=== PATIENT | male | born 1955 | race Caucasian/White ===

== ENCOUNTER 2020-01-08 14:15 | Inpatient (IN) | payer MEDICARE, BC, SELFPAY ==
[2020-01-08] VITALS (12 sets, daily range): BP systolic 99–136; BP diastolic 55–60; PULSE 70–99; RESP 16–18; TEMP 36.7–36.9; O2SAT 95–97; BMI 39.5
--- NOTE | 2020-01-08 14:51 | ED.DCSUM_ITS ---
- ER Visit Summary Date of Service: 01/08/20 Chief Complaint: [Redness and swelling to both legs] History of Present Illness: The patient is a 64 M [presents the emergency department with redness and swelling to both legs that started 5 or 6 weeks ago. Patient's been seeing his primary care physician who is been given water pills and was told him to keep his legs elevated. Patient states that whenever he elevates his legs he has a lot of pain and discomfort so he cannot do that. Patient denies any fevers. He had some sweats a few weeks ago. He denies any increase in his weight. Patient has history of CHF, coronary artery disease, diabetes, and hypertension. He denies feeling short of breath.] Physical Examination: [HEENT-PERRLA, EOMI. Cranial nerves II through XII grossly intact. TMs clear. Mucous membranes moist. No adenopathy. Cardiovascular-regular rate and rhythm without murmur or ectopy Lungs-clear to auscultation, chest wall stable without crepitus or subcu emphysema Abdomen-normoactive bowel sounds, soft, nontender, no rebound or rigidity, no peritoneal signs. Extremities-intact ?4, normal range of motion, normal pulses, atraumatic. Patient has bilateral lower extremity edema with seeping and oozing of fluid from the lower extremities from below the knees down to the feet. Patient has erythema and cellulitic changes noted. There is follow odor noted. Neurovascularly intact.] Test Results: [CBC with differential obtained showed a white count of 8.2, hemoglobin 10, hematocrit 30, platelets 288. Chemistry showed a sodium 126, potassium 3.6, chloride 93, CO2 24, glucose 134, BUN 95 and creatinine 2.11.] Emergency Department Course and Treatment: [IV line was established. Patient was started on Unasyn 3 g IV.] Treatment Plan: [Admit] Disposition: [Admit] Impression: [Cellulitis bilateral lower extremities Hyponatremia Renal insufficiency] This note was generated with [employer] dictation software. It may contain incorrect words, spelling, and punctuation that were not noted in review of the chart prior to signing ED Disposition - Plan for ED Patient: Referrals: Shay Chin MD [Primary Care Provider] -
[2020-01-08 15:34] LABS: Basophil# 0.03 X10^3/uL; Basophil% 0.4 % (0-1); Eosinophil# 0.13 X10^3/uL; Eosinophils% 1.6 % (0-5); Hematocrit 30.5 % (40-54); Hemoglobin 10.4 g/dL (13.0-16.5); Lymphocyte % 9.7 % (19-41); Mean Corp Hgb Conc 34.1 g/dL (32-36); Mean Corpuscular Hgb 29.5 pg (27.0-32.0); Mean Corpuscular Volume 86.6 fL (80-94); Mean Platelet Vol. 10.1 fl (6.2-12.0); Monocyte# 1.23 X10^3/uL; NRBC Flagged by Analyzer 0 % (0-5); Neutrophil # 5.99 X10^3/uL (2.7-7.7); Neutrophil % 72.9 % (47-70); Platelet Count 288 K/mm3 (150-450); RBC Distribution Width SD 40.7 fl (35.1-43.9); Red Blood Count 3.52 M/mm3 (4.6-6.2); White Blood Count 8.2 K/mm3 (4.4-11.0)
[2020-01-08 15:48] LABS: Anion Gap 9 (5-15); BUN 95 mg/dL (7-18); Calcium,Total 9.1 mg/dL (8.5-10.1); Chloride 93 mmol/L (98-107); Creatinine, Serum 2.11 mg/dL (0.70-1.30); EST Glomerular Filtration Rate 34 mL/min (>60); Est Glom Filt Rate - Afr Amer 41 mL/min (>60); Estimated Creatinine Clearance 35.56 ml/min; Glucose 134 mg/dL (74-106); Potassium 3.6 mmol/L (3.5-5.1); Sodium Level 126 mmol/L (136-145)
[2020-01-08 16:02] LABS: Lactic Acid 1.9 mmol/L (0.4-1.9)
--- NOTE | 2020-01-08 16:12 | PCM.HP.STD ---
Problem List (1) Diabetes mellitus Status: Chronic Qualifiers: Diabetes mellitus type: type 2 Chronic kidney disease stage: stage 3 (moderate) (2) HTN (hypertension) Status: Chronic (3) Bilateral cellulitis of lower leg Status: Acute (4) Stasis dermatitis of both legs Status: Acute (5) Systolic CHF, chronic Status: Chronic (6) Obesity (BMI 30-39.9) Status: Chronic (7) CKD (chronic kidney disease) stage 3, GFR 30-59 ml/min Status: Chronic History of Present Illness Date of Admission: 01/08/20 Chief Complaint: Bilateral lower extremity swelling The patient is a 64 year old M last medical history single for essential hypertension, diabetes mellitus type 2, chronic systolic heart failure with last known EF of 45% in 2017 who presents with bilateral lower extremity swelling. Patient reports 5-month history of progressive swelling involving both lower extremities. Has progressed to the extent where both legs are seeping. Patient on further questioning denied any fever no chills. Did admit to difficulty walking presented to the emergency department in view of the progressive nature of his symptoms. Exposure of both legs demonstrated extensive excoriations and swelling involving both lower extremities with malodorous discharge. An assessment of severe bilateral lower extremities stasis dermatitis with superimposed cellulitis made started on Unasyn admitted to a monitored bed for further management Past Medical History Past Medical History (Chronic Problems): Chronic Problems Systolic CHF, chronic (Chronic) Obesity (BMI 30-39.9) (Chronic) CKD (chronic kidney disease) stage 3, GFR 30-59 ml/min (Chronic) HTN (hypertension) (Chronic) Diabetes mellitus (Chronic) Allergies tramadol Allergy (Verified 01/08/20 14:18) Rash Home Medications: Ambulatory Orders Medication Instructions Recorded Amlodipine [Norvasc] 5 mg PO DAILY 02/16/17 Glimepiride [Amaryl] 4 mg PO DAILY 02/16/17 Metformin HCl [Metformin HCl ER] 1,500 mg PO DAILY 02/16/17 Valsartan/Hydrochlorothiazide 1 each PO DAILY 02/16/17 [Valsartan-Hctz 320-25 mg Tab] Oxycodone [Oxyir] 5 mg PO Q4H PRN PRN #20 tablet 02/20/17 Amiodarone HCl [Cordarone] 200 mg PO BID #60 tablet 02/21/17 Amoxicillin/Potassium Clav 1 each PO BID #20 tablet 02/21/17 [Augmentin 875-125 Tablet] Aspirin [Aspirin, Baby] 81 mg PO DAILY@0800 #30 tab.chew 02/21/17 Furosemide [Lasix] 40 mg PO DAILY #30 tablet 02/21/17 Lactobacillus Acidophilus 1 tablet PO DAILY #30 tablet 02/21/17 [Acidophilus] Metoprolol Tartrate [Lopressor 100 mg PO BID #60 tablet 02/21/17 (beta stephen)] Pantoprazole Sodium [Protonix] 40 mg PO DAILY #30 tablet 02/21/17 Potassium Chloride [K-Dur] 40 meq PO DAILYCM #30 tablet 02/21/17 Surgical History: cholecystectomy, - - Surgery for trauma to the left arm (fracture) with orthopedic plate inserted Psychiatric History: No pertinent psych hx Smoking Status: Former smoker - *Family History Maternal History Items: - - of pneumonia Paternal History Items: Heart Disease - [place] at age 71 Sibling History Items: Heart Disease - [place] at 55 Review of Systems Constitutional: Denies: Anorexia, Chills, Fever, Night Sweats, Weight Change HEENT: Denies: Head Aches, Sinus Congestion, Sinus Drainage Cardiovascular: Reports: Edema. Denies: Chest Pain, Orthopnea, Palpitations, Paroxysmal Noc. Dyspnea Respiratory: Denies: Cough, Shortness of breath at rest, Shortness of breath upon exertion, Sputum production Gastrointestinal: Denies: Abdominal Pain, Hematemesis, Hematochezia, Nausea, Melena, Vomiting Genitourinary: Denies: Dysuria, Frequency, Hematuria, Urgency Musculoskeletal: Denies: Joint Pain, Joint Tenderness Skin: Reports: Skin Changes, Wounds Neurological: Denies: Focal weakness, Numbness, Tingling Psychiatric: Denies: Homicidal Ideations, Suicidal Ideations Hematologic/ Lymphatic: Denies: Easy Bruising, Easy Bleeding VTE Information - Inpt Only VTE Present on Admission: No VTE Mechan Device Prophylaxis: None VTE Pharm Prophylaxis ordered?: Yes Patient Problems: Active and Suspected Problems Bilateral cellulitis of lower leg (Acute) Stasis dermatitis of both legs (Acute) Objective: GENERAL: cooperative HEENT: Atraumatic; EYES; Anicteric, Normal Conjunctiva NECK; supple, normal thyroid, RESPIRATORY: Diminished to auscultation CARDIOVASCULAR: Regular S1 S2, GI: soft, normoactive bowel sounds, : No Renal angle tenderness; EXTREMITIES: Bilateral lower extremity edema MUSCULOSKELETAL: no muscle waisting NEURO: Awake; no lateralizing signs. SKIN: Extensive stasis dermatitis involving both lower extremities with malodorous discharge PSYCH; Flat affect - Physical Exam Vitals/I&O's: Vital Signs Temp Pulse Resp BP Pulse Ox 98.4 F 97 18 120/56 L 95 01/08/20 16:01 01/08/20 16:01 01/08/20 16:01 01/08/20 16:01 01/08/20 16:01 Oxygen Delivery Method Room Air Weight: 125 kg Body Mass Index (BMI) 39.5 Finger Stick Blood Glucose 172 Laboratory Results 01/08/20 15:15: WBC 8.2, RBC 3.52 L, Hgb 10.4 L, Hct 30.5 L, MCV 86.6, MCH 29.5, MCHC 34.1, RDW Std Deviation 40.7, RDW Coeff of Tahmina 13.0, Plt Count 288, MPV 10.1, Immature Gran % (Auto) 0.400, Neut % (Auto) 72.9 H, Lymph % (Auto) 9.7 L, Saline % (Auto) 15.0 H, Eos % (Auto) 1.6, Baso % (Auto) 0.4, Absolute Neuts (auto) 6.0, Absolute Lymphs (auto) 0.80 L, Nucleated RBC % 0 01/08/20 15:15: Sodium 126 L, Potassium 3.6, Chloride 93 L, Carbon Dioxide 24.0, Anion Gap 9, BUN 95 H, Creatinine 2.11 H, Estim Creat Clear Calc 35.56, Est GFR (MDRD) Af Amer 41 L, Est GFR (MDRD) Non-Af 34 L, BUN/Creatinine Ratio 45.0 H, Glucose 134 H, Calcium 9.1 01/08/20 15:15: Lactic Acid 1.9 Assessment/Plan All Active Problems Bilateral cellulitis of lower leg (Acute) Stasis dermatitis of both legs (Acute) Acute systolic (congestive) heart failure (Acute) Acute cholecystitis (Acute) Right upper quadrant abdominal pain (Acute) Abnormal electrocardiogram (Acute) Abnormal echocardiogram (Acute) Patient is a 64-year-old gentleman with known history of chronic congestive heart failure with reduced ejection fraction who presented to the emergency department with progressive swelling involving both lower extremities with significant discharge from both legs 1. Severe stasis dermatitis with superimposed suspected bacterial infection ?Admitted to monitored bed with consultation placed to the wound care nurse. Patient was started on Unasyn after cultures have been obtained. 2. Chronic congestive heart failure reduced ejection fraction Last known EF in 2017 was 45%. Admitted to monitored bed placed on fluid restriction patient is on Lasix at home did continue with home dose in addition to daily weight, strict input and output fluid restriction. An order was placed for repeat echo to be performed on 01/09/2020. 3. Renal failure ?Do suspect some chronicity, patient had normal kidney function in January 2017. Potential nephrotoxic medications held ordered renal duplex and consultation placed to nephrology 4. Diabetes mellitus type II - Controlled patient's oral hypoglycemics held. Placed on long acting insulin, Accu-Cheks a.c. and at bedtime and covered with sliding scale insulin 5. Essential hypertension ?Did continue home meds except for potential nephrotoxic ones. Patient was also placed on PRN hydralazine 6. History of tachyarrhythmia with subsequent cardiomyopathy ?Patient is on beta-blockers and amiodarone continue 7. Morbid obesity with BMI of 39.5 ?Weight loss advised 8. DVT prophylaxis ??Lovenox dose adjusted for kidney function 9. Hyponatremia ?Do suspect hypervolemic hyponatremia (possibly from CHF) as well as patient being on HCTZ. Patient managed with Lasix with daily monitoring of electrolytes Inpatient E&M: 30559 In Hosp L3
--- NOTE | 2020-01-08 16:49 | ECHOCS_ITS ---
Reason For Study: CHF Procedure This was a 2D Doppler, Color Flow transthoracic echocardiogram. The study was technically difficult. Contrast injection was performed. Poor apical windows. SCANNED SUPINE d/t leg wounds/ pain. Exam performed portable in patient room. Left Ventricle Normal LV size. Left ventricular systolic function is normal. The estimated ejection fraction is 50 %. Dresser : Severely Hypokinetic. Inferior Dresser : Hypokinetic. The rest of the wall segments are normal. Right Ventricle Normal RV size. Normal systolic function. Atria Normal left atrium. Normal right atrium. Mitral Valve Normal mitral valve. Tricuspid Valve Normal tricuspid valve. Aortic Valve The aortic valve is not well visualized. Pulmonic Valve Normal pulmonic valve. Great Vessels Normal aortic root. The pulmonary artery is normal size. Pericardium/Pleural No pericardial effusion. Medication Diluted definity 5.0ml given slow IV push to enhance endocardial definition. MMode/2D Measurements & Calculations LVIDd: 6.7 cm IVSd: 0.90 cm Ao root diam: 3.7 cm LVIDs: 4.8 cm LVPWd: 1.0 cm FS: 27.7 % LAV(MOD-bp): 68.7 ml LVAd ap4: 41.0 cm2 SV(MOD-sp4): 59.2 ml LAV(MOD-bp) Indexed: 28.7 ml/m2 EDV(MOD-sp4): 123.0 ml LAV(MOD-sp2): 71.8 ml EDV(sp4-el): 128.5 ml LAV(MOD-sp4): 62.5 ml LVAs ap4: 27.7 cm2 ESV(MOD-sp4): 63.8 ml ESV(sp4-el): 67.7 ml EF(MOD-sp4): 48.1 % EF(sp4-el): 47.3 % SV(sp4-el): 60.8 ml LA A4 area: 20.5 cm2 LA dimension(2D): 4.3 cm RA A4 area: 18.8 cm2 Time Measurements MV dec time: 0.28 sec Doppler Measurements & Calculations MV E max wayne: 106.2 cm/sec Lat Peak E' Wayne: 11.9 cm/sec Med Peak E' Wayne: 7.9 cm/sec MV A max wayne: 94.3 cm/sec E/E' lat: 8.9 E/E' med: 13.5 MV E/A: 1.1 Ao V2 max: 161.3 cm/sec LV V1 max: 98.0 cm/sec PA V2 max: 119.8 cm/sec Ao max P.4 mmHg LV V1 max P.9 mmHg Interpretation Summary Normal LV size. Left ventricular systolic function is normal. The estimated ejection fraction is 50 %. Dresser : Severely Hypokinetic. Inferior Dresser : Hypokinetic The rest of the wall segments are normal. Contrast injection was performed. Ordering Physician: Kyle Alarcon Referring Physician: TYRONE MEDEIROS Performed By: Rosaline Hall RDCS, RVT
[2020-01-08] MEDS: Acetaminophen 325 MG Tablet 650 MG PO (17:47)
[2020-01-08] MEDS: oxyCODONE 5 MG Tablet 10 MG PO ×2 (17:47→22:30)
[2020-01-08 18:01] LABS: Bedside Glucose 147 mg/dL (70-110)
[2020-01-08 19:37] LABS: M R Staph aureus DNA By PCR Negative (Negative); Probe Check PASS; Staph aureus DNA By PCR POSITIVE (Negative)
--- NOTE | 2020-01-08 19:40 | NURSING ---
Pt refusing to have left leg wrapped with anything. Reports the pain too great when anything is on it. He also refuses to elevate legs while in the recliner due to the pain as well. Wound RN to see pt 01/08.
[2020-01-08] MEDS: Insulin Lispro 100 UNIT/ML INSULN.PEN SC (21:23)
[2020-01-08] MEDS: Amiodarone 200 MG Tablet PO (21:23)
[2020-01-08] MEDS: Metoprolol Tartrate 100 MG Tablet PO (21:23)
[2020-01-08 21:36] LABS: Bedside Glucose 290 mg/dL (70-110)
[2020-01-09] VITALS (14 sets, daily range): BP systolic 86–110; BP diastolic 42–55; PULSE 70–83; RESP 14–18; TEMP 36.6–36.9; O2SAT 95–99
[2020-01-09] MEDS: oxyCODONE 5 MG Tablet 10 MG PO ×4 (03:13→17:25)
[2020-01-09] MEDS: Enoxaparin 30 MG/0.3 ML Syringe SC (05:34)
[2020-01-09] MEDS: 0.9% Saline Lock 10 ML Syringe IV ×2 (05:34→13:34)
[2020-01-09 06:47] LABS: Absolute Lymphocyte Count 0.58 X10^3/uL (0.83-4.51); Absolute Neutrophil Count 4.8 X10^3/uL (2.0-7.7); Basophil# 0.01 X10^3/uL; Basophil% 0.2 % (0-1); Eosinophil# 0.11 X10^3/uL; Eosinophils% 1.8 % (0-5); Hematocrit 30.2 % (40-54); Hemoglobin 10.2 g/dL (13.0-16.5); Lymphocyte # 0.58 X10^3/ul (4.0); Lymphocyte % 9.3 % (19-41); Mean Corp Hgb Conc 33.8 g/dL (32-36); Mean Corpuscular Hgb 29.7 pg (27.0-32.0); Mean Corpuscular Volume 87.8 fL (80-94); Mean Platelet Vol. 9.6 fl (6.2-12.0); Monocyte# 0.73 X10^3/uL; Monocyte% 11.6 % (0-10); NRBC Flagged by Analyzer 0 % (0-5); Neutrophil # 4.82 X10^3/uL (2.7-7.7); Neutrophil % 76.8 % (47-70); POSITIVE DIFFERENTIAL YES; Platelet Count 277 K/mm3 (150-450); RBC Distribution Width CV 13.1 % (11.6-14.6); RBC Distribution Width SD 41.5 fl (35.1-43.9); Red Blood Count 3.44 M/mm3 (4.6-6.2); White Blood Count 6.3 K/mm3 (4.4-11.0)
[2020-01-09] MEDS: Insulin Lispro 100 UNIT/ML INSULN.PEN SC ×4 (06:47→21:40)
[2020-01-09 06:51] LABS: Differential Indicated SCAN CRITERIA MET
[2020-01-09 06:56] LABS: Bedside Glucose 167 mg/dL (70-110)
[2020-01-09 07:09] LABS: Differential Comment SCANNED
[2020-01-09 07:29] LABS: Anion Gap 7 (5-15); BUN 97 mg/dL (7-18); BUN/Creat Ratio 40.4 RATIO (10-20); Calcium,Total 9.1 mg/dL (8.5-10.1); Chloride 91 mmol/L (98-107); EST Glomerular Filtration Rate 29 mL/min (>60); Est Glom Filt Rate - Afr Amer 35 mL/min (>60); Estimated Creatinine Clearance 31.26 ml/min; Glucose 175 mg/dL (74-106); Magnesium 2.4 mg/dL (1.6-2.6); Potassium 3.8 mmol/L (3.5-5.1); Sodium Level 125 mmol/L (136-145); Thyroid Stim Hormone (TSH) 3.31 uIU/mL (0.358-3.74)
--- NOTE | 2020-01-09 08:00 | US_ITS ---
STUDY: RENAL ULTRASOUND - COMPLETE REASON FOR EXAM: Male, 64 years old. Renal failure -- admitted with cellulitis of the legs TECHNIQUE: Ultrasound evaluation of the kidneys was performed with real-time and static stout-scale imaging. COMPARISON: None. FINDINGS: RIGHT KIDNEY: Normal location of the right kidney, which is normal in size. The right kidney measures 12.5 cm x 6.3 cm x 7.6 cm. There is a normal cortex of the right kidney. The renal cortex measures 2.0 cm. There is no right renal mass or cyst. There is a 1.2 cm x 1.4 cm calculus in the lower pole calyx. There is no right hydronephrosis. DISTAL RIGHT URETER: There is non-visualization of the distal right ureter. There is no demonstrated right ureterovesical junction calculus. There is a visualized right ureteral jet. LEFT KIDNEY: Normal location of the left kidney, which is normal in size. The left kidney measures 12.5 cm x 6 cm x 6.4 cm. There is a normal cortex of the left kidney. The renal cortex measures 2.1 cm. There is no left renal mass or cyst. There are no left renal calculi. There is no left hydronephrosis. DISTAL LEFT URETER: There is non-visualization of the distal left ureter. There is no demonstrated left ureterovesical junction calculus. There is no demonstrated left ureteral jet. BLADDER: The distended urinary bladder has a volume of 210 ml. There is a normal wall thickness of the distended urinary bladder. There is no demonstrated mass within the urinary bladder. There are no demonstrated bladder calculi. US/Kidney and Bladder IMPRESSION: 1.2 cm x 1.4 cm calculus in the lower pole of the right kidney. Electronically Signed: Baljeet Antoine, at 9:56 EDT , Service support ,
[2020-01-09] MEDS: Aspirin 81 MG TAB.CHEW PO (08:45)
[2020-01-09] MEDS: Amiodarone 200 MG Tablet PO ×2 (08:55→21:40)
[2020-01-09] MEDS: Pantoprazole Sodium 40 MG Tablet PO (08:55)
[2020-01-09] MEDS: Metoprolol Tartrate 100 MG Tablet PO (08:56)
[2020-01-09] MEDS: Furosemide 40 MG Tablet PO (09:02)
--- NOTE | 2020-01-09 10:56 | NURSING ---
wound photo: bilateral lower legs
--- NOTE | 2020-01-09 11:13 | CASEMGMT ---
PATRICK PHAM assessment: Face to Face with patient for initial transition planning/care coordination assessment. PATRICK PHAM introduced self and role at [facility], pt voices understanding and consents to assessment at this time. Pt is sitting up in chair in no distress at this time. Pt is A/Ox4 at this time and answers all questions appropriately at this time. Pt does fall to sleep easily but does awaken to verbal stimuli. Care providers, pharmacy, and demographics verified at this time. Presentation: Bilat leg pain d/t cellulitis-pt states increased swelling/drainage Admitting dx: Cellulitis, dermatitis PCP: Giuseppe Specialists: [place], podiatry: Cardiology at [facility] Workman Preferred Pharmacy: [facility] Insurance: [facility] A/B, [place] Prescription Benefit: MCR D Living Will/HPOA: Pt states does not have LW/HPOA at this time but would like AD info at this time. Pt provided with [place] AD info at this time. LNOK: Jose Enrique Garcia, marija Living Arrangements: Pt states lives with son in 2 story home and states no concerns at home at this time. Pt states he lives in basement of home and states is independent with ADL's. Transportation: Pt states drives self and states no transportation concerns at this time. DME/HHC: Pt states has the following DME: canex2, walker, and cpap thru [facility]. Pt states no need for any further DME at this time. Pt states no hx of HHC or SNF in the past. Pt states no concerns with going home at time of discharge. Pt is retired. Pt states quit smoking cigarettes 36 years ago and does drink ETOH frequently. Pt voices no further concerns/needs at this time. CM to follow for any further discharge planning/needs. Advised pt to ask for CM if any further questions/concerns/needs arise, voices understanding. Pt Goal: Home Plan[place] PATRICK PHAM
[2020-01-09 11:56] LABS: Bedside Glucose 180 mg/dL (70-110)
--- NOTE | 2020-01-09 12:53 | PCM.CONS.R ---
Consultation - Renal 01/09/20 PCP/ Referring MD: Requesting physician: [] Primary care physician: Dr. Shay Chin MD - History of Present Illness History of Present Illness: The patient is a 64 year old M with a past medical history of hypertension diabetes mellitus type 2 CHF with ejection fraction 45% in 2017 who presented with bilateral lower extremity edema. She had about 6 months of progressive worsening edema. He also noted seeping of fluid from his legs. His legs are currently wrapped. He has some difficulty walking and noticed some malodorous discharge from multiple sites on her legs his legs. He was taking ibuprofen and Aleve 2 to 3 tablets every 4-6 hours as needed for pain in the legs. He has been doing that for a few months. He denies nausea vomiting diarrhea dysuria hematuria. He denies ever seeing a honing machine try out setter. He states that many years ago he passed spontaneously a kidney stone. Serum creatinine was 0.9 range in 2017 no value since then. It was 2.11 on admission 2.4 today. The patient has no other complaints. Has chest pain shortness of breath abdominal pain headache fever chills. - Allergies Allergies: Allergies tramadol Allergy (Verified 01/08/20 14:18) Rash - Current Medications Current Medications: Current Medications Acetaminophen (Tylenol) 650 mg PO Q6H PRN PRN PRN Reason: Pain Score 1-10/Temp > 100.7 F Last Admin: 01/08/20 17:47 Dose: 650 mg Documented by: Al Hydroxide/Mg Hydroxide (Mylanta Ii) 30 ml PO Q6H PRN PRN PRN Reason: Gastric Burning Albuterol Sulfate (Ventolin Aerosols) 2.5 mg INHALATION Q2H PRN PRN PRN Reason: SOB/Wheezing Amiodarone HCl (Cordarone) 200 mg PO BID [facility] Last Admin: 01/09/20 08:55 Dose: 200 mg Documented by: Aspirin (Aspirin, Baby) 81 mg PO DAILY@0800 [facility] Last Admin: 01/09/20 08:45 Dose: 81 mg Documented by: Enoxaparin Sodium (Lovenox) 30 mg SC DAILY@0600 [facility] Last Admin: 01/09/20 05:34 Dose: 30 mg Documented by: Furosemide (Lasix) 40 mg PO DAILY [facility] Last Admin: 01/09/20 09:02 Dose: 40 mg Documented by: Guaifenesin (Robitussin) 20 ml PO Q4H PRN PRN PRN Reason: COUGH Hydralazine HCl (Apresoline Iv) 10 mg IV Q4H PRN PRN PRN Reason: Hypertensive Emergency Ampicillin Sodium/Sulbactam (Sodium 3 gm/ Sodium Chloride) 112 mls @ 150 mls/hr IV Q6 [facility] Last Admin: 01/09/20 12:05 Dose: 150 mls/hr Documented by: Sodium Chloride () 250 mls @ 15 mls/hr IV .[id number] PRN PRN Reason: Saline Flush Sodium Chloride () 250 mls @ 15 mls/hr IV .[id number] PRN PRN Reason: Additional IVPB Infusion Insulin Glargine (Lantus ([facility])) 10 units SC BREAKFAST [facility] Last Admin: 01/09/20 08:49 Dose: 10 units Documented by: Insulin Human Lispro (Humalog Kwikpen ([facility])) 0 unit SC ACHS [facility]; Protocol Last Admin: 01/09/20 12:01 Dose: 2 units Documented by: Lactobacillus Acidophilus (Acidophilus) 1 tablet PO DAILY [facility] Last Admin: 01/09/20 09:02 Dose: 1 tablet Documented by: Magnesium Hydroxide (Milk Of Magnesia) 30 ml PO DAILY PRN PRN PRN Reason: Constipation Melatonin (Melatonin) 3 mg PO QHS PRN PRN PRN Reason: INSOMNIA Metoprolol Tartrate (Lopressor (Beta Emilie)) 100 mg PO BID [facility] Last Admin: 01/09/20 08:56 Dose: 100 mg Documented by: Nitroglycerin (Nitrostat) 0.4 mg SUBLINGUAL Q5M PRN PRN Reason: CARDIAC/CHEST PAIN Oxycodone HCl (Oxyir) 5 mg PO Q4H PRN PRN PRN Reason: Pain Score 4-5/10 Oxycodone HCl (Oxyir) 10 mg PO Q4H PRN PRN PRN Reason: Pain Score 6-10/10 Last Admin: 01/09/20 09:03 Dose: 10 mg Documented by: Pantoprazole Sodium (Protonix) 40 mg PO DAILY [facility] Last Admin: 01/09/20 08:55 Dose: 40 mg Documented by: Potassium Chloride (K-Dur) [facility] Last Admin: 01/09/20 08:45 Dose: 40 meq Documented by: Promethazine HCl (Phenergan) 25 mg IM Q6H PRN PRN PRN Reason: Breakthrough Nausea/Vomiting Sodium Chloride () 10 - 40 ml IV UD PRN PRN Reason: SALINE FLUSH Last Admin: 01/09/20 05:34 Dose: 10 ml Documented by: - Past Medical History Past Medical History (Chronic Problems): Chronic Problems Systolic CHF, chronic (Chronic) Obesity (BMI 30-39.9) (Chronic) CKD (chronic kidney disease) stage 3, GFR 30-59 ml/min (Chronic) HTN (hypertension) (Chronic) Diabetes mellitus (Chronic) - Past Surgical History Surgical History: cholecystectomy, - - Surgery for trauma to the left arm (fracture) with orthopedic plate inserted - Social History Smoking Status: Former smoker - Family History Maternal History Items: - - of pneumonia Paternal History Items: Heart Disease - [place] at age 71 Sibling History Items: Heart Disease - [place] at 55 Review of Systems Eyes: Reports: - - Negative unless noted in the HPI Patient Problems: Active and Suspected Problems Bilateral cellulitis of lower leg (Acute) Stasis dermatitis of both legs (Acute) - Physical Exam Vitals/I&O's: Vital Signs Temp Pulse Resp BP Pulse Ox 98.3 F 71 14 110/54 L 99 01/09/20 10:55 01/09/20 11:00 01/09/20 10:55 01/09/20 10:55 01/09/20 10:55 Oxygen Delivery Method Room Air Weight: 124.4 kg Body Mass Index (BMI) 39.5 Finger Stick Blood Glucose 172 Intake and Output for Last 24 Hours 01/07/20 01/08/20 01/09/20 23:59 23:59 23:59 Intake Total 224 / 464 352 / 352 Output Total 150 / 150 Balance 224 / 464 202 / 202 General: Alert, Cooperative HEENT: Atraumatic, EOMI, Normocephalic Neck: Supple Lungs: Clear to auscultation, Normal air movement Cardiovascular: Regular rate, Regular Rhythm, Normal S1, Normal S2 Abdomen: Bowel Sounds Present, Non Tender, Obese Extremities: Edema, - - sreekanth wraps from the feet up to the knees bilaterally Microbiology Past 72 Hours 01/08/20 17:35 Wound - Leg, Right Wound Culture - Preliminary Gram negative tayler Gram positive organism 01/08/20 17:35 Wound - Leg, Left Wound Culture - Preliminary Gram negative tayler Gram positive organism Laboratory Results 01/08/20 15:15: WBC 8.2, RBC 3.52 L, Hgb 10.4 L, Hct 30.5 L, MCV 86.6, MCH 29.5, MCHC 34.1, RDW Std Deviation 40.7, RDW Coeff of Tahmina 13.0, Plt Count 288, MPV 10.1, Immature Gran % (Auto) 0.400, Neut % (Auto) 72.9 H, Lymph % (Auto) 9.7 L, Caldwell % (Auto) 15.0 H, Eos % (Auto) 1.6, Baso % (Auto) 0.4, Absolute Neuts (auto) 6.0, Absolute Lymphs (auto) 0.80 L, Nucleated RBC % 0 01/08/20 15:15: Sodium 126 L, Potassium 3.6, Chloride 93 L, Carbon Dioxide 24.0, Anion Gap 9, BUN 95 H, Creatinine 2.11 H, Estim Creat Clear Calc 35.56, Est GFR (MDRD) Af Amer 41 L, Est GFR (MDRD) Non-Af 34 L, BUN/Creatinine Ratio 45.0 H, Glucose 134 H, Calcium 9.1 01/08/20 15:15: Lactic Acid 1.9 01/08/20 17:35: S.aureus Protein A PCR POSITIVE H, MRSA (PCR) Negative 01/08/20 17:35: S.aureus Protein A PCR POSITIVE H, MRSA (PCR) Negative 01/08/20 17:57: POC Glucose 147 H 01/08/20 21:17: POC Glucose 290 H 01/09/20 06:32: WBC 6.3, RBC 3.44 L, Hgb 10.2 L, Hct 30.2 L, MCV 87.8, MCH 29.7, MCHC 33.8, RDW Std Deviation 41.5, RDW Coeff of Tahmina 13.1, Plt Count 277, MPV 9.6, Immature Gran % (Auto) 0.300, Neut % (Auto) 76.8 H, Lymph % (Auto) 9.3 L, Caldwell % (Auto) 11.6 H, Eos % (Auto) 1.8, Baso % (Auto) 0.2, Absolute Neuts (auto) 4.8, Absolute Lymphs (auto) 0.58 L, Nucleated RBC % 0, Differential Comment SCANNED 01/09/20 06:32: Sodium 125 L, Potassium 3.8, Chloride 91 L, Carbon Dioxide 27.0, Anion Gap 7, BUN 97 H, Creatinine 2.40 H, Estim Creat Clear Calc 31.26, Est GFR (MDRD) Af Amer 35 L, Est GFR (MDRD) Non-Af 29 L, BUN/Creatinine Ratio 40.4 H, Glucose 175 H, Calcium 9.1, Magnesium 2.4, TSH 3.31 01/09/20 06:46: POC Glucose 167 H 01/09/20 11:32: POC Glucose 180 H Current Medications Acetaminophen (Tylenol) 650 mg PO Q6H PRN PRN PRN Reason: Pain Score 1-10/Temp > 100.7 F Last Admin: 01/08/20 17:47 Dose: 650 mg Documented by: Al Hydroxide/Mg Hydroxide (Mylanta Ii) 30 ml PO Q6H PRN PRN PRN Reason: Gastric Burning Albuterol Sulfate (Ventolin Aerosols) 2.5 mg INHALATION Q2H PRN PRN PRN Reason: SOB/Wheezing Amiodarone HCl (Cordarone) 200 mg PO BID [facility] Last Admin: 01/09/20 08:55 Dose: 200 mg Documented by: Aspirin (Aspirin, Baby) 81 mg PO DAILY@0800 [facility] Last Admin: 01/09/20 08:45 Dose: 81 mg Documented by: Enoxaparin Sodium (Lovenox) 30 mg SC DAILY@0600 [facility] Last Admin: 01/09/20 05:34 Dose: 30 mg Documented by: Furosemide (Lasix) 40 mg PO DAILY [facility] Last Admin: 01/09/20 09:02 Dose: 40 mg Documented by: Guaifenesin (Robitussin) 20 ml PO Q4H PRN PRN PRN Reason: COUGH Hydralazine HCl (Apresoline Iv) 10 mg IV Q4H PRN PRN PRN Reason: Hypertensive Emergency Ampicillin Sodium/Sulbactam (Sodium 3 gm/ Sodium Chloride) 112 mls @ 150 mls/hr IV Q6 [facility] Last Admin: 01/09/20 12:05 Dose: 150 mls/hr Documented by: Sodium Chloride () 250 mls @ 15 mls/hr IV .[id number] PRN PRN Reason: Saline Flush Sodium Chloride () 250 mls @ 15 mls/hr IV .[id number] PRN PRN Reason: Additional IVPB Infusion Insulin Glargine (Lantus (Bk)) 10 units SC BREAKFAST [facility] Last Admin: 01/09/20 08:49 Dose: 10 units Documented by: Insulin Human Lispro (Humalog Kwikpen (Bk)) 0 unit SC ACHS [facility]; Protocol Last Admin: 01/09/20 12:01 Dose: 2 units Documented by: Lactobacillus Acidophilus (Acidophilus) 1 tablet PO DAILY [facility] Last Admin: 01/09/20 09:02 Dose: 1 tablet Documented by: Magnesium Hydroxide (Milk Of Magnesia) 30 ml PO DAILY PRN PRN PRN Reason: Constipation Melatonin (Melatonin) 3 mg PO QHS PRN PRN PRN Reason: INSOMNIA Metoprolol Tartrate (Lopressor (Beta Emilie)) 100 mg PO BID [facility] Last Admin: 01/09/20 08:56 Dose: 100 mg Documented by: Nitroglycerin (Nitrostat) 0.4 mg SUBLINGUAL Q5M PRN PRN Reason: CARDIAC/CHEST PAIN Oxycodone HCl (Oxyir) 5 mg PO Q4H PRN PRN PRN Reason: Pain Score 4-5/10 Oxycodone HCl (Oxyir) 10 mg PO Q4H PRN PRN PRN Reason: Pain Score 6-10/10 Last Admin: 01/09/20 09:03 Dose: 10 mg Documented by: Pantoprazole Sodium (Protonix) 40 mg PO DAILY [facility] Last Admin: 01/09/20 08:55 Dose: 40 mg Documented by: Potassium Chloride (K-Dur) [facility] Last Admin: 01/09/20 08:45 Dose: 40 meq Documented by: Promethazine HCl (Phenergan) 25 mg IM Q6H PRN PRN PRN Reason: Breakthrough Nausea/Vomiting Sodium Chloride () 10 - 40 ml IV UD PRN PRN Reason: SALINE FLUSH Last Admin: 01/09/20 05:34 Dose: 10 ml Documented by: Assessment/Plan All Active Problems Bilateral cellulitis of lower leg (Acute) Stasis dermatitis of both legs (Acute) Acute systolic (congestive) heart failure (Acute) Acute cholecystitis (Acute) Right upper quadrant abdominal pain (Acute) Abnormal electrocardiogram (Acute) Abnormal echocardiogram (Acute) AUGUSTINE versus CKD unknown baseline with superimposed prerenal state with diuretics and NSAIDs HTN Nephrolithiasis Lower extremity edema Heart failure Check a UA spot urine protein creatinine and sodium urology outpatient for nephrolitihiasis check bmp in am check spep upep up/cr continue lasix for now if worsening Scr will hold further diuretics further w/u per clinical course avoid hypotension nephrotoxics
--- NOTE | 2020-01-09 13:21 | PCM.PROGNOTE ---
<Elsi Mena [employer] - Last Filed: 01/09/20 13:33> Patient Problems: Active and Suspected Problems Bilateral cellulitis of lower leg (Acute) Stasis dermatitis of both legs (Acute) Subjective: Patient seen and examined. Wound nurse in room, patient reports significant pain with wound care. Denies fever, chills. Denies other symptoms or complaints. - Physical Exam Vitals/I&O's: Vital Signs Temp Pulse Resp BP Pulse Ox 98.3 F 71 14 110/54 L 99 01/09/20 10:55 01/09/20 11:00 01/09/20 10:55 01/09/20 10:55 01/09/20 10:55 Oxygen Delivery Method Room Air Weight: 274 lb 4.081 oz Body Mass Index (BMI) 39.5 Finger Stick Blood Glucose 172 Intake and Output for Last 24 Hours 01/07/20 01/08/20 01/09/20 23:59 23:59 23:59 Intake Total 224 / 464 352 / 352 Output Total 150 / 150 Balance 224 / 464 202 / 202 General: Alert, Oriented x3, Cooperative HEENT: Atraumatic, PERRLA, EOMI, Normocephalic Neck: Supple, No JVD, Negative Carotid Bruits Lungs: Clear to auscultation, Normal air movement Cardiovascular: Regular rate, No murmurs Abdomen: Bowel Sounds Present, Soft, Non Tender, Non-Distended Extremities: No clubbing, No cyanosis, Edema - Bilateral lower extremities Skin: No rashes, No breakdown, - - Bilateral lower extremity stasis dermatitis with yellow crusted appearance and underlying erythema/inflammation. Pitting edema. Musculoskeletal: No Tenderness to Palpation of Joints or Extremities Neurological: Cranial nerves II-XII grossly intact, Neuro grossly intact Psych/Mental Status: Normal Affect, Appropriate Microbiology Past 72 Hours 01/08/20 17:35 Wound - Leg, Right Gram Stain - Final 01/08/20 17:35 Wound - Leg, Right Wound Culture - Preliminary Gram negative tayler Gram positive organism 01/08/20 17:35 Wound - Leg, Left Gram Stain - Final 01/08/20 17:35 Wound - Leg, Left Wound Culture - Preliminary Gram negative tayler Gram positive organism Laboratory Results 01/08/20 15:15: WBC 8.2, RBC 3.52 L, Hgb 10.4 L, Hct 30.5 L, MCV 86.6, MCH 29.5, MCHC 34.1, RDW Std Deviation 40.7, RDW Coeff of [place]mina 13.0, Plt Count 288, MPV 10.1, Immature Gran % (Auto) 0.400, Neut % (Auto) 72.9 H, Lymph % (Auto) 9.7 L, [place] % (Auto) 15.0 H, Eos % (Auto) 1.6, Baso % (Auto) 0.4, Absolute Neuts (auto) 6.0, Absolute Lymphs (auto) 0.80 L, Nucleated RBC % 0 01/08/20 15:15: Sodium 126 L, Potassium 3.6, Chloride 93 L, Carbon Dioxide 24.0, Anion Gap 9, BUN 95 H, Creatinine 2.11 H, Estim Creat Clear Calc 35.56, Est GFR (MDRD) Af Amer 41 L, Est GFR (MDRD) Non-Af 34 L, BUN/Creatinine Ratio 45.0 H, Glucose 134 H, Calcium 9.1 01/08/20 15:15: Lactic Acid 1.9 01/08/20 17:35: S.aureus Protein A PCR POSITIVE H, MRSA (PCR) Negative 01/08/20 17:35: S.aureus Protein A PCR POSITIVE H, MRSA (PCR) Negative 01/08/20 17:57: POC Glucose 147 H 01/08/20 21:17: POC Glucose 290 H 01/09/20 06:32: WBC 6.3, RBC 3.44 L, Hgb 10.2 L, Hct 30.2 L, MCV 87.8, MCH 29.7, MCHC 33.8, RDW Std Deviation 41.5, RDW Coeff of [place] 13.1, Plt Count 277, MPV 9.6, Immature Gran % (Auto) 0.300, Neut % (Auto) 76.8 H, Lymph % (Auto) 9.3 L, [place] % (Auto) 11.6 H, Eos % (Auto) 1.8, Baso % (Auto) 0.2, Absolute Neuts (auto) 4.8, Absolute Lymphs (auto) 0.58 L, Nucleated RBC % 0, Differential Comment SCANNED 01/09/20 06:32: Sodium 125 L, Potassium 3.8, Chloride 91 L, Carbon Dioxide 27.0, Anion Gap 7, BUN 97 H, Creatinine 2.40 H, Estim Creat Clear Calc 31.26, Est GFR (MDRD) Af Amer 35 L, Est GFR (MDRD) Non-Af 29 L, BUN/Creatinine Ratio 40.4 H, Glucose 175 H, Calcium 9.1, Magnesium 2.4, TSH 3.31 01/09/20 06:46: POC Glucose 167 H 01/09/20 11:32: POC Glucose 180 H Current Medications Acetaminophen (Tylenol) 650 mg PO Q6H PRN PRN PRN Reason: Pain Score 1-10/Temp > 100.7 F Last Admin: 01/08/20 17:47 Dose: 650 mg Documented by: Al Hydroxide/Mg Hydroxide (Mylanta Ii) 30 ml PO Q6H PRN PRN PRN Reason: Gastric Burning Albuterol Sulfate (Ventolin Aerosols) 2.5 mg INHALATION Q2H PRN PRN PRN Reason: SOB/Wheezing Amiodarone HCl (Cordarone) 200 mg PO BID [facility] Last Admin: 01/09/20 08:55 Dose: 200 mg Documented by: Aspirin (Aspirin, Baby) 81 mg PO DAILY@0800 [facility] Last Admin: 01/09/20 08:45 Dose: 81 mg Documented by: Enoxaparin Sodium (Lovenox) 30 mg SC DAILY@0600 [facility] Last Admin: 01/09/20 05:34 Dose: 30 mg Documented by: Furosemide (Lasix) 40 mg PO DAILY [facility] Last Admin: 01/09/20 09:02 Dose: 40 mg Documented by: Guaifenesin (Robitussin) 20 ml PO Q4H PRN PRN PRN Reason: COUGH Hydralazine HCl (Apresoline Iv) 10 mg IV Q4H PRN PRN PRN Reason: Hypertensive Emergency Ampicillin Sodium/Sulbactam (Sodium 3 gm/ Sodium Chloride) 112 mls @ 150 mls/hr IV Q6 [facility] Last Admin: 01/09/20 12:05 Dose: 150 mls/hr Documented by: Sodium Chloride () 250 mls @ 15 mls/hr IV .[id number] PRN PRN Reason: Saline Flush Sodium Chloride () 250 mls @ 15 mls/hr IV .[id number] PRN PRN Reason: Additional IVPB Infusion Insulin Glargine (Lantus (Bk)) 10 units SC BREAKFAST [facility] Last Admin: 01/09/20 08:49 Dose: 10 units Documented by: Insulin Human Lispro (Humalog Kwikpen ([facility])) 0 unit SC ACHS [facility]; Protocol Last Admin: 01/09/20 12:01 Dose: 2 units Documented by: Lactobacillus Acidophilus (Acidophilus) 1 tablet PO DAILY [facility] Last Admin: 01/09/20 09:02 Dose: 1 tablet Documented by: Magnesium Hydroxide (Milk Of Magnesia) 30 ml PO DAILY PRN PRN PRN Reason: Constipation Melatonin (Melatonin) 3 mg PO QHS PRN PRN PRN Reason: INSOMNIA Metoprolol Tartrate (Lopressor (Beta Emilie)) 100 mg PO BID [facility] Last Admin: 01/09/20 08:56 Dose: 100 mg Documented by: Nitroglycerin (Nitrostat) 0.4 mg SUBLINGUAL Q5M PRN PRN Reason: CARDIAC/CHEST PAIN Oxycodone HCl (Oxyir) 5 mg PO Q4H PRN PRN PRN Reason: Pain Score 4-5/10 Oxycodone HCl (Oxyir) 10 mg PO Q4H PRN PRN PRN Reason: Pain Score 6-10/10 Last Admin: 01/09/20 09:03 Dose: 10 mg Documented by: Pantoprazole Sodium (Protonix) 40 mg PO DAILY [facility] Last Admin: 01/09/20 08:55 Dose: 40 mg Documented by: Potassium [facility] ([facility] Last Admin: 01/09/20 08:45 Dose: 40 meq Documented by: Promethazine HCl (Phenergan) 25 mg IM Q6H PRN PRN PRN Reason: Breakthrough Nausea/Vomiting Sodium Chloride () 10 - 40 ml IV UD PRN PRN Reason: SALINE FLUSH Last Admin: 01/09/20 05:34 Dose: 10 ml Documented by: Medical Necessity - Tobacco Use Smoking Status: Former smoker Assessment/Plan All Active Problems Bilateral cellulitis of lower leg (Acute) Stasis dermatitis of both legs (Acute) Acute systolic (congestive) heart failure (Acute) Acute cholecystitis (Acute) Right upper quadrant abdominal pain (Acute) Abnormal electrocardiogram (Acute) Abnormal echocardiogram (Acute) 1. Bilateral lower extremity stasis dermatitis with cellulitis-IV Unasyn. Wound RN consult. Wound cultures growing gram-negative and gram-positive organisms, final pending. Will need outpatient follow-up with wound center. 2. Chronic heart failure with reduced ejection fraction-stress test 2017 with EF 44%. Echocardiogram completed, report pending. Continue oral Lasix regimen. 3. Acute kidney injury versus chronic kidney disease-last baseline kidney function 2017.9-1. Creatinine on admission 2.1. Nephrology following. Renal ultrasound demonstrates 1.2 cm x 1.4 cm calculus in the lower pole of the right kidney. Urine protein, creatinine and sodium pending. SPEP and UPEP ordered. 4. Hyponatremia- suspect secondary to HCTZ versus hypervolemia from CHF. HCTZ on hold. Continue Lasix. Trend BMP. 5. Type 2 diabetes mellitus-hold metformin. Accu-Cheks with sliding scale insulin. 6. Hypertension-stable, continue amlodipine, Lasix, metoprolol. Hold valsartan/HCTZ. 7. 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 8. GERD-continue PPI. 9. Morbid obesity-encouraged diet and lifestyle modifications. DVT prophylaxis-Lovenox This patient was seen by KAYY Galvin under the supervision of Dr. Tripp. <Iván Tripp - Last Filed: 01/09/20 14:50> - Physical Exam Vitals/I&O's: Vital Signs Temp Pulse Resp BP Pulse Ox 36.8 C 71 14 110/54 L 99 01/09/20 10:55 01/09/20 11:00 01/09/20 10:55 01/09/20 10:55 01/09/20 10:55 Oxygen Delivery Method Room Air Weight: 124.4 kg Body Mass Index (BMI) 39.5 Finger Stick Blood Glucose 172 Intake and Output for Last 24 Hours 01/07/20 01/08/20 01/09/20 23:59 23:59 23:59 Intake Total 224 / 464 464 / 464 Output Total 150 / 150 Balance 224 / 464 314 / 314 General: Alert, Cooperative Lungs: Clear to auscultation, Normal air movement Cardiovascular: Regular rate, No murmurs Abdomen: Bowel Sounds Present, Soft, Non Tender, Non-Distended Extremities: No clubbing, No cyanosis, Edema, - - Reviewed images that were taken earlier today by Mckayla Dawson: Patient has venous stasis changes, sloughing skin from below the knees and especially middle shins and as well as on the feet. Microbiology Past 72 Hours 01/08/20 17:35 Wound - Leg, Right Gram Stain - Final 01/08/20 17:35 Wound - Leg, Right Wound Culture - Preliminary Gram negative tayler Gram positive organism 01/08/20 17:35 Wound - Leg, Left Gram Stain - Final 01/08/20 17:35 Wound - Leg, Left Wound Culture - Preliminary Gram negative tayler Gram positive organism Laboratory Results 01/08/20 15:15: WBC 8.2, RBC 3.52 L, Hgb 10.4 L, Hct 30.5 L, MCV 86.6, MCH 29.5, MCHC 34.1, RDW Std Deviation 40.7, RDW Coeff of [place]mina 13.0, Plt Count 288, MPV 10.1, Immature Gran % (Auto) 0.400, Neut % (Auto) 72.9 H, Lymph % (Auto) 9.7 L, [place] % (Auto) 15.0 H, Eos % (Auto) 1.6, Baso % (Auto) 0.4, Absolute Neuts (auto) 6.0, Absolute Lymphs (auto) 0.80 L, Nucleated RBC % 0 01/08/20 15:15: Sodium 126 L, Potassium 3.6, Chloride 93 L, Carbon Dioxide 24.0, Anion Gap 9, BUN 95 H, Creatinine 2.11 H, Estim Creat Clear Calc 35.56, Est GFR (MDRD) Af Amer 41 L, Est GFR (MDRD) Non-Af 34 L, BUN/Creatinine Ratio 45.0 H, Glucose 134 H, Calcium 9.1 01/08/20 15:15: Lactic Acid 1.9 01/08/20 17:35: S.aureus Protein A PCR POSITIVE H, MRSA (PCR) Negative 01/08/20 17:35: S.aureus Protein A PCR POSITIVE H, MRSA (PCR) Negative 01/08/20 17:57: POC Glucose 147 H 01/08/20 21:17: POC Glucose 290 H 01/09/20 06:32: WBC 6.3, RBC 3.44 L, Hgb 10.2 L, Hct 30.2 L, MCV 87.8, MCH 29.7, MCHC 33.8, RDW Std Deviation 41.5, RDW Coeff of [place] 13.1, Plt Count 277, MPV 9.6, Immature Gran % (Auto) 0.300, Neut % (Auto) 76.8 H, Lymph % (Auto) 9.3 L, [place] % (Auto) 11.6 H, Eos % (Auto) 1.8, Baso % (Auto) 0.2, Absolute Neuts (auto) 4.8, Absolute Lymphs (auto) 0.58 L, Nucleated RBC % 0, Differential Comment SCANNED 01/09/20 06:32: Sodium 125 L, Potassium 3.8, Chloride 91 L, Carbon Dioxide 27.0, Anion Gap 7, BUN 97 H, Creatinine 2.40 H, Estim Creat Clear Calc 31.26, Est GFR (MDRD) Af Amer 35 L, Est GFR (MDRD) Non-Af 29 L, BUN/Creatinine Ratio 40.4 H, Glucose 175 H, Calcium 9.1, Magnesium 2.4, TSH 3.31 01/09/20 06:46: POC Glucose 167 H 01/09/20 11:32: POC Glucose 180 H Current Medications Acetaminophen (Tylenol) 650 mg PO Q6H PRN PRN PRN Reason: Pain Score 1-10/Temp > 100.7 F Last Admin: 01/08/20 17:47 Dose: 650 mg Documented by: Al Hydroxide/Mg Hydroxide (Mylanta Ii) 30 ml PO Q6H PRN PRN PRN Reason: Gastric Burning Albuterol Sulfate (Ventolin Aerosols) 2.5 mg INHALATION Q2H PRN PRN PRN Reason: SOB/Wheezing Amiodarone HCl (Cordarone) 200 mg PO BID [facility] Last Admin: 01/09/20 08:55 Dose: 200 mg Documented by: Aspirin (Aspirin, Baby) 81 mg PO DAILY@0800 [facility] Last Admin: 01/09/20 08:45 Dose: 81 mg Documented by: Enoxaparin Sodium (Lovenox) 30 mg SC DAILY@0600 [facility] Last Admin: 01/09/20 05:34 Dose: 30 mg Documented by: Furosemide (Lasix) 40 mg PO DAILY [facility] Last Admin: 01/09/20 09:02 Dose: 40 mg Documented by: Guaifenesin (Robitussin) 20 ml PO Q4H PRN PRN PRN Reason: COUGH Hydralazine HCl (Apresoline Iv) 10 mg IV Q4H PRN PRN PRN Reason: Hypertensive Emergency Ampicillin Sodium/Sulbactam (Sodium 3 gm/ Sodium Chloride) 112 mls @ 150 mls/hr IV Q6 [facility] Last Infusion: 01/09/20 13:33 Dose: Infused Documented by: Sodium Chloride () 250 mls @ 15 mls/hr IV .[id number] PRN PRN Reason: Saline Flush Sodium Chloride () 250 mls @ 15 mls/hr IV .[id number] PRN PRN Reason: Additional IVPB Infusion Insulin Glargine (Lantus ([facility])) 10 units SC BREAKFAST [facility] Last Admin: 01/09/20 08:49 Dose: 10 units Documented by: Insulin Human Lispro (Humalog Kwikpen ([facility])) 0 unit SC ACHS [facility]; Protocol Last Admin: 01/09/20 12:01 Dose: 2 units Documented by: Lactobacillus Acidophilus (Acidophilus) 1 tablet PO DAILY [facility] Last Admin: 01/09/20 09:02 Dose: 1 tablet Documented by: Magnesium Hydroxide (Milk Of Magnesia) 30 ml PO DAILY PRN PRN PRN Reason: Constipation Melatonin (Melatonin) 3 mg PO QHS PRN PRN PRN Reason: INSOMNIA Metoprolol Tartrate (Lopressor (Beta Emilie)) 100 mg PO BID [facility] Last Admin: 01/09/20 08:56 Dose: 100 mg Documented by: Nitroglycerin (Nitrostat) 0.4 mg SUBLINGUAL Q5M PRN PRN Reason: CARDIAC/CHEST PAIN Oxycodone HCl (Oxyir) 5 mg PO Q4H PRN PRN PRN Reason: Pain Score 4-5/10 Oxycodone HCl (Oxyir) 10 mg PO Q4H PRN PRN PRN Reason: Pain Score 6-10/10 Last Admin: 01/09/20 13:33 Dose: 10 mg Documented by: Pantoprazole Sodium (Protonix) 40 mg PO DAILY [facility] Last Admin: 01/09/20 08:55 Dose: 40 mg Documented by: Potassium Chloride ([facility]Dur) [facility] Last Admin: 01/09/20 08:45 Dose: 40 meq Documented by: Promethazine HCl (Phenergan) 25 mg IM Q6H PRN PRN PRN Reason: Breakthrough Nausea/Vomiting Sodium Chloride () 10 - 40 ml IV UD PRN PRN Reason: SALINE FLUSH Last Admin: 01/09/20 13:34 Dose: 10 ml Documented by: Assessment/Plan Patient seen and examined independently. Data reviewed. I agree with the above note by the nurse practitioner. 1. Bilateral lower extremity venous stasis dermatitis.'s bilateral so making the likelihood of this being cellulitis very low. Wounds, however, are growing gram-negative rods as well as gram-positive organisms. This may be more contaminated than actual true infection. Continue with ampicillin/sulbactam for now. Echocardiogram performed showed an EF of 50%. No RV evaluation. Continue with Julio Cesar wraps and keeping legs elevated as much as possible. For the edema, would add IV furosemide for now. 2. Chronic kidney disease stage III: Monitor closely with the increased diuretics. 3. Hyponatremia: Ongoing. May be related with HCTZ plus minus dilution from hypervolemia: Monitor. Inpatient E&M: 18513 Subs Hosp L2
[2020-01-09 17:05] LABS: Bedside Glucose 208 mg/dL (70-110)
[2020-01-09] MEDS: Furosemide 40 MG/4 ML Vial IV (17:07)
[2020-01-09 18:16] LABS: Mucous, Urine 0 SEEN /hpf (<or=2+); Squamous Epithelial Cells - UA 0 SEEN /hpf (0-5); White Blood Cells 0 SEEN /hpf (0-5)
[2020-01-09 18:19] LABS: Color, Urine Yellow (Yellow); Glucose, Dipstick Normal (Normal); Ketone-Dipstick Negative (Negative); Leukocyte Esterase-Dipstick Negative /ul (Negative); Nitrite-Dipstick Negative (Negative); Occult Blood-Urine 150 /ul (Negative); Protein-Dipstick Negative (Negative); Specific Gravity, Urine 1.015 (1.002-1.030); Urine Bilirubin Dipstick Negative (Negative); Urine Clarity Clear (Clear); Urine Urobilinogen Normal (Normal)
[2020-01-09 18:25] LABS: Urine Sodium 34 mmol/L (Not Establ.)
[2020-01-09 18:33] LABS: Protein, Urine (Random) 13.3 mg/dL (<11.9)
[2020-01-09 18:52] LABS: Bacteria 1+ /hpf (None Seen); Red Blood Cells-Urine 5-10 SEEN /hpf (0-5)
[2020-01-09 22:15] LABS: Bedside Glucose 213 mg/dL (70-110)
[2020-01-10] VITALS (12 sets, daily range): BP systolic 103–121; BP diastolic 52–66; PULSE 74–94; RESP 16–20; TEMP 36.4–36.9; O2SAT 95–100
[2020-01-10] MEDS: Acetaminophen 325 MG Tablet 650 MG PO ×3 (00:16→18:27)
[2020-01-10] MEDS: Enoxaparin 30 MG/0.3 ML Syringe SC (05:31)
[2020-01-10 06:03] LABS: Anion Gap 8 (5-15); BUN 108 mg/dL (7-18); BUN/Creat Ratio 35.3 RATIO (10-20); Calcium,Total 8.9 mg/dL (8.5-10.1); Chloride 90 mmol/L (98-107); Creatinine, Serum 3.06 mg/dL (0.70-1.30); EST Glomerular Filtration Rate 22 mL/min (>60); Est Glom Filt Rate - Afr Amer 26 mL/min (>60); Estimated Creatinine Clearance 24.52 ml/min; Glucose 199 mg/dL (74-106); Potassium 4.1 mmol/L (3.5-5.1); Sodium Level 126 mmol/L (136-145)
[2020-01-10] MEDS: Insulin Lispro 100 UNIT/ML INSULN.PEN SC ×4 (06:45→21:16)
[2020-01-10 06:50] LABS: Bedside Glucose 178 mg/dL (70-110)
[2020-01-10] MEDS: Aspirin 81 MG TAB.CHEW PO (08:20)
[2020-01-10] MEDS: oxyCODONE 5 MG Tablet 10 MG PO ×4 (08:34→21:15)
[2020-01-10] MEDS: Pantoprazole Sodium 40 MG Tablet PO (10:44)
[2020-01-10] MEDS: Amiodarone 200 MG Tablet PO ×2 (10:44→21:15)
[2020-01-10] MEDS: Furosemide 40 MG/4 ML Vial IV (10:47)
[2020-01-10] MEDS: 0.9% Saline Lock 10 ML Syringe IV ×4 (10:47→18:27)
[2020-01-10 13:05] LABS: Bedside Glucose 261 mg/dL (70-110)
--- NOTE | 2020-01-10 13:14 | PN_ITS ---
Patient Problems: Active and Suspected Problems Bilateral cellulitis of lower leg (Acute) Stasis dermatitis of both legs (Acute) Subjective: no cp/sob - Physical Exam Vitals/I&O's: Vital Signs Temp Pulse Resp BP Pulse Ox 98.0 F 94 18 103/59 L 95 01/10/20 10:50 01/10/20 12:07 01/10/20 10:50 01/10/20 10:50 01/10/20 10:50 Oxygen Delivery Method Room Air Weight: 124.4 kg Body Mass Index (BMI) 39.5 Finger Stick Blood Glucose 172 Intake and Output for Last 24 Hours 01/08/20 01/09/20 01/10/20 23:59 23:59 23:59 Intake Total 224 / 464 1556 / 1556 1556 / 1556 Output Total 800 / 800 750 / 750 Balance 224 / 464 756 / 756 806 / 806 General: Alert, Oriented x3, Cooperative HEENT: Atraumatic, EOMI Lungs: Clear to auscultation, Normal air movement Cardiovascular: Regular rate, Regular Rhythm Abdomen: Bowel Sounds Present, Soft, Non Tender Extremities: Edema Microbiology Past 72 Hours 01/08/20 15:21 Blood Culture (Wb) - Right Hand Blood Culture - Preliminary No growth in 48 hours. 01/08/20 15:15 Blood Culture (Wb) - Left Hand Blood Culture - Preliminary No growth in 48 hours. 01/08/20 17:35 Wound - Leg, Right Gram Stain - Final 01/08/20 17:35 Wound - Leg, Right Wound Culture - Preliminary Gram negative tayler Gram positive organism 01/08/20 17:35 Wound - Leg, Left Gram Stain - Final 01/08/20 17:35 Wound - Leg, Left Wound Culture - Preliminary Gram negative tayler Gram positive organism Laboratory Results 01/09/20 15:25: Urine Color Cancelled, Urine Clarity Cancelled, Urine pH Cancelled, Ur Specific [place] Cancelled, U Specif Grav (Refrac) Cancelled, Urine Protein Cancelled, Urine Glucose (UA) Cancelled, Urine Ketones Cancelled, Urine Occult Blood Cancelled, Urine Nitrite Cancelled, Urine Bilirubin Cancelled, Urine Urobilinogen Cancelled, Ur Leukocyte Esterase Cancelled, Urine RBC Cancelled, Urine WBC Cancelled, Ur Squamous Epith Cells Cancelled, Ur Transition Epith Cell Cancelled, Ur Renal Epithelial Cell Cancelled, Calcium Oxalate Crystal Cancelled, Uric Acid Crystals Cancelled, Triple Phos Crystals Cancelled, Other Crystals Cancelled, Amorphous Sediment Cancelled, Urine Bacteria Cancelled, Hyaline Casts Cancelled, Fine Granular Casts Cancelled, Coarse Granular Casts Cancelled, Waxy Casts Cancelled, RBC Casts Cancelled, WBC Casts Cancelled, Urine Mucus Cancelled, Urine Trichomonas Cancelled, Urine Yeast Cancelled 01/09/20 16:58: POC Glucose 208 H 01/09/20 18:00: Urine Creatinine 83.20 01/09/20 18:00: U Random Total Protein 13.3 H 01/09/20 18:00: Urine Color Yellow, Urine Clarity Clear, Urine pH 5.0, Ur Specific [place] 1.015, Urine Protein Negative, Urine Glucose (UA) Normal, Urine Ketones Negative, Urine Occult Blood 150 H, Urine Nitrite Negative, Urine Bilirubin Negative, Urine Urobilinogen Normal, Ur Leukocyte Esterase Negative, U rine RBC 5-10 SEEN, Urine WBC 0 SEEN, Ur Squamous Epith Cells 0 SEEN, Urine Bacteria 1+, Urine Mucus 0 SEEN 01/09/20 18:00: Ur Random Sodium 34 01/09/20 21:39: POC Glucose 213 H 01/10/20 05:30: Total Protein (PEP) Pending, IgG Pending, IgA Pending, IgM Pending, Albumin (DAVID) Pending, Albumin/Globulin (DAVID) Pending, [id number] DAVID Pending, [id number] DAVID Pending, Beta-Globulins (DAVID) Pending, Gamma Globulins (DAVID) Pending, DAVID M-Diego Pending 01/10/20 05:35: Sodium 126 L, Potassium 4.1, Chloride 90 L, Carbon Dioxide 28.0, Anion Gap 8, BUN 108 H*, Creatinine 3.06 H, Estim Creat Clear Calc 24.52, Est GFR (MDRD) Af Amer 26 L, Est GFR (MDRD) Non-Af 22 L, BUN/Creatinine Ratio 35.3 H , Glucose 199 H, Calcium 8.9 01/10/20 06:43: POC Glucose 178 H 01/10/20 11:52: POC Glucose 261 H Current Medications Acetaminophen (Tylenol) 650 mg PO Q6H PRN PRN PRN Reason: Pain Score 1-10/Temp > 100.7 F Last Admin: 01/10/20 08:26 Dose: 650 mg Documented by: Al Hydroxide/Mg Hydroxide (Mylanta Ii) 30 ml PO Q6H PRN PRN PRN Reason: Gastric Burning Albuterol Sulfate (Ventolin Aerosols) 2.5 mg INHALATION Q2H PRN PRN PRN Reason: SOB/Wheezing Amiodarone HCl (Cordarone) 200 mg PO BID [facility] Last Admin: 01/10/20 10:44 Dose: 200 mg Documented by: Aspirin (Aspirin, Baby) 81 mg PO DAILY@0800 [facility] Last Admin: 01/10/20 08:20 Dose: 81 mg Documented by: Enoxaparin Sodium (Lovenox) 30 mg SC DAILY@0600 [facility] Last Admin: 01/10/20 05:31 Dose: 30 mg Documented by: Furosemide (Lasix) 40 mg IV BID@1000,1800 [facility] Last Admin: 01/10/20 10:47 Dose: 40 mg Documented by: Guaifenesin (Robitussin) 20 ml PO Q4H PRN PRN PRN Reason: COUGH Hydralazine HCl (Apresoline Iv) 10 mg IV Q4H PRN PRN PRN Reason: Hypertensive Emergency Ampicillin Sodium/Sulbactam (Sodium 3 gm/ Sodium Chloride) 112 mls @ 150 mls/hr IV Q6 [facility] Last Infusion: 01/10/20 12:46 Dose: Infused Documented by: Sodium Chloride () 250 mls @ 15 mls/hr IV .[id number] PRN PRN Reason: Saline Flush Sodium Chloride () 250 mls @ 15 mls/hr IV .[id number] PRN PRN Reason: Additional IVPB Infusion Insulin Glargine (Lantus ([facility])) 10 units SC BREAKFAST [facility] Last Admin: 01/10/20 08:20 Dose: 10 units Documented by: Insulin Human Lispro (Humalog Kwikpen ([facility])) 0 unit SC ACHS [facility]; Protocol Last Admin: 01/10/20 11:54 Dose: 6 units Documented by: Lactobacillus Acidophilus (Acidophilus) 1 tablet PO DAILY [facility] Last Admin: 01/10/20 10:44 Dose: 1 tablet Documented by: Magnesium Hydroxide (Milk Of Magnesia) 30 ml PO DAILY PRN PRN PRN Reason: Constipation Melatonin (Melatonin) 3 mg PO QHS PRN PRN PRN Reason: INSOMNIA Metoprolol Tartrate (Lopressor (Beta Emilie)) 100 mg PO BID [facility] Last Admin: 01/09/20 23:33 Dose: Not Given Documented by: Nitroglycerin (Nitrostat) 0.4 mg SUBLINGUAL Q5M PRN PRN Reason: CARDIAC/CHEST PAIN Oxycodone HCl (Oxyir) 5 mg PO Q4H PRN PRN PRN Reason: Pain Score 4-5/10 Oxycodone HCl (Oxyir) 10 mg PO Q4H PRN PRN PRN Reason: Pain Score 6-10/10 Last Admin: 01/10/20 12:52 Dose: 10 mg Documented by: Pantoprazole Sodium (Protonix) 40 mg PO DAILY [facility] Last Admin: 01/10/20 10:44 Dose: 40 mg Documented by: Potassium Chloride (K-Dur) 40 meq PO DAILYCM [facility] Last Admin: 01/10/20 08:20 Dose: 40 meq Documented by: Promethazine HCl (Phenergan) 25 mg IM Q6H PRN PRN PRN Reason: Breakthrough Nausea/Vomiting Sodium Chloride () 10 - 40 ml IV UD PRN PRN Reason: SALINE FLUSH Last Admin: 01/10/20 12:52 Dose: 10 ml Documented by: Medical Necessity - Tobacco Use Smoking Status: Former smoker Assessment/Plan All Active Problems Bilateral cellulitis of lower leg (Acute) Stasis dermatitis of both legs (Acute) Acute systolic (congestive) heart failure (Acute) Acute cholecystitis (Acute) Right upper quadrant abdominal pain (Acute) Abnormal electrocardiogram (Acute) Abnormal echocardiogram (Acute) AUGUSTINE versus CKD unknown baseline with superimposed prerenal state with diuretics and NSAIDs HTN Microscopic hematuria Nephrolithiasis Lower extremity edema Heart failure minimal proteinuria noted worsening renal function with persistent hypotension last night.decrease BB and stop lasix for now. If worsening renal failure get serologies tomorrow. urology outpatient for nephrolitihiasis and microscopic hematuria.Likely microscopic hematuria from stone but cannot r/o GN. declines kidney biopsy after major risks and benefits d/w patient who voiced understanding check bmp in am f/u spep upep hold diuretics further w/u per clinical course avoid hypotension nephrotoxics d/w patient and [employer].
--- NOTE | 2020-01-10 14:08 | PN_ITS ---
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 States he has difficulty sleeping in bed. Slept in chair overnight, reports pain with elevating legs. Skin appearance somewhat improved compared to yesterday. Lower extremities remain edematous. Patient denies fever, chills. - Physical Exam Vitals/I&O's: Vital Signs Temp Pulse Resp BP Pulse Ox 98.0 F 94 18 103/59 L 95 01/10/20 10:50 01/10/20 12:07 01/10/20 10:50 01/10/20 10:50 01/10/20 10:50 Oxygen Delivery Method Room Air Weight: 274 lb 4.081 oz Body Mass Index (BMI) 39.5 Finger Stick Blood Glucose 172 Intake and Output for Last 24 Hours 01/08/20 01/09/20 01/10/20 23:59 23:59 23:59 Intake Total 224 / 464 1556 / 1556 1556 / 1556 Output Total 800 / 800 750 / 750 Balance 224 / 464 756 / 756 806 / 806 General: Alert, Oriented x3, Cooperative HEENT: Atraumatic, PERRLA, EOMI, Normocephalic Neck: Supple, No JVD, Negative Carotid Bruits Lungs: Clear to auscultation, Normal air movement Cardiovascular: Regular rate, No murmurs Abdomen: Bowel Sounds Present, Soft, Non Tender, Non-Distended Extremities: No clubbing, No cyanosis, Edema - Bilateral lower extremities Skin: - - Bilateral lower extremity stasis dermatitis with yellow crusted appearance and underlying erythema/inflammation. Pitting edema. Musculoskeletal: No Tenderness to Palpation of Joints or Extremities Neurological: Cranial nerves II-XII grossly intact, Neuro grossly intact Psych/Mental Status: Normal Affect, Appropriate Microbiology Past 72 Hours 01/08/20 15:21 Blood Culture (Wb) - Right Hand Blood Culture - Preliminary No growth in 48 hours. 01/08/20 15:15 Blood Culture (Wb) - Left Hand Blood Culture - Preliminary No growth in 48 hours. 01/08/20 17:35 Wound - Leg, Right Gram Stain - Final 01/08/20 17:35 Wound - Leg, Right Wound Culture - Preliminary Gram negative tayler Gram positive organism 01/08/20 17:35 Wound - Leg, Left Gram Stain - Final 01/08/20 17:35 Wound - Leg, Left Wound Culture - Preliminary Gram negative tayler Gram positive organism Laboratory Results 01/09/20 15:25: Urine Color Cancelled, Urine Clarity Cancelled, Urine pH Cancelled, Ur Specific [place] Cancelled, U Specif Grav (Refrac) Cancelled, Urine Protein Cancelled, Urine Glucose (UA) Cancelled, Urine Ketones Cancelled, Urine Occult Blood Cancelled, Urine Nitrite Cancelled, Urine Bilirubin Cancelled, Urine Urobilinogen Cancelled, Ur Leukocyte Esterase Cancelled, Urine RBC Cancelled, Urine WBC Cancelled, Ur Squamous Epith Cells Cancelled, Ur Transition Epith Cell Cancelled, Ur Renal Epithelial Cell Cancelled, Calcium Oxalate Crystal Cancelled, Uric Acid Crystals Cancelled, Triple Phos Crystals Cancelled, Other Crystals Cancelled, Amorphous Sediment Cancelled, Urine Bacteria Cancelled, Hyaline Casts Cancelled, Fine Granular Casts Cancelled, Coarse Granular Casts Cancelled, Waxy Casts Cancelled, RBC Casts Cancelled, WBC Casts Cancelled, Urine Mucus Cancelled, Urine Trichomonas Cancelled, Urine Yeast Cancelled 01/09/20 16:58: POC Glucose 208 H 01/09/20 18:00: Urine Creatinine 83.20 01/09/20 18:00: U Random Total Protein 13.3 H 01/09/20 18:00: Urine Color Yellow, Urine Clarity Clear, Urine pH 5.0, Ur Specific [place] 1.015, Urine Protein Negative, Urine Glucose (UA) Normal, Urine Ketones Negative, Urine Occult Blood 150 H, Urine Nitrite Negative, Urine Bilirubin Negative, Urine Urobilinogen Normal, Ur Leukocyte Esterase Negative, Urine RBC 5-10 SEEN, Urine WBC 0 SEEN, Ur Squamous Epith Cells 0 SEEN, Urine Bacteria 1+, Urine Mucus 0 SEEN 01/09/20 18:00: Ur Random Sodium 34 01/09/20 21:39: POC Glucose 213 H 01/10/20 05:30: Total Protein (PEP) Pending, IgG Pending, IgA Pending, IgM Pending, Albumin (DAVID) Pending, Albumin/Globulin (DAVID) Pending, Dvitd-[id number] DAVID Pending, Bxjyu-4-Gtiufvyob DAVID Pending, Beta-Globulins (DAVID) Pending, Gamma Globulins (DAVID) Pending, DAVID M-Diego Pending 01/10/20 05:35: Sodium 126 L, Potassium 4.1, Chloride 90 L, Carbon Dioxide 28.0, Anion Gap 8, BUN 108 H*, Creatinine 3.06 H, Estim Creat Clear Calc 24.52, Est GFR (MDRD) Af Amer 26 L, Est GFR (MDRD) Non-Af 22 L, BUN/Creatinine Ratio 35.3 H , Glucose 199 H, Calcium 8.9 01/10/20 06:43: POC Glucose 178 H 01/10/20 11:52: POC Glucose 261 H Current Medications Acetaminophen (Tylenol) 650 mg PO Q6H PRN PRN PRN Reason: Pain Score 1-10/Temp > 100.7 F Last Admin: 01/10/20 08:26 Dose: 650 mg Documented by: Al Hydroxide/Mg Hydroxide (Mylanta Ii) 30 ml PO Q6H PRN PRN PRN Reason: Gastric Burning Albuterol Sulfate (Ventolin Aerosols) 2.5 mg INHALATION Q2H PRN PRN PRN Reason: SOB/Wheezing Amiodarone HCl (Cordarone) 200 mg PO BID [facility] Last Admin: 01/10/20 10:44 Dose: 200 mg Documented by: Aspirin (Aspirin, Baby) 81 mg PO DAILY@0800 [facility] Last Admin: 01/10/20 08:20 Dose: 81 mg Documented by: Enoxaparin Sodium (Lovenox) 30 mg SC DAILY@0600 [facility] Last Admin: 01/10/20 05:31 Dose: 30 mg Documented by: Furosemide (Lasix) 40 mg IV BID@1000,1800 [facility] Last Admin: 01/10/20 10:47 Dose: 40 mg Documented by: Guaifenesin (Robitussin) 20 ml PO Q4H PRN PRN PRN Reason: COUGH Hydralazine HCl (Apresoline Iv) 10 mg IV Q4H PRN PRN PRN Reason: Hypertensive Emergency Ampicillin Sodium/Sulbactam (Sodium 3 gm/ Sodium Chloride) 112 mls @ 150 mls/hr IV Q6 [facility] Last Infusion: 01/10/20 12:46 Dose: Infused Documented by: Sodium Chloride () 250 mls @ 15 mls/hr IV .[id number] PRN PRN Reason: Saline Flush Sodium Chloride () 250 mls @ 15 mls/hr IV .[id number] PRN PRN Reason: Additional IVPB Infusion Insulin Glargine (Lantus ([facility])) 10 units SC BREAKFAST [facility] Last Admin: 01/10/20 08:20 Dose: 10 units Documented by: Insulin Human Lispro (Humalog Kwikpen ([facility])) 0 unit SC ACHS [facility]; Protocol Last Admin: 01/10/20 11:54 Dose: 6 units Documented by: Lactobacillus Acidophilus (Acidophilus) 1 tablet PO DAILY [facility] Last Admin: 01/10/20 10:44 Dose: 1 tablet Documented by: Magnesium Hydroxide (Milk Of Magnesia) 30 ml PO DAILY PRN PRN PRN Reason: Constipation Melatonin (Melatonin) 3 mg PO QHS PRN PRN PRN Reason: INSOMNIA Metoprolol Tartrate (Lopressor (Beta Emilie)) 100 mg PO BID [facility] Last Admin: 01/09/20 23:33 Dose: Not Given Documented by: Nitroglycerin (Nitrostat) 0.4 mg SUBLINGUAL Q5M PRN PRN Reason: CARDIAC/CHEST PAIN Oxycodone HCl (Oxyir) 5 mg PO Q4H PRN PRN PRN Reason: Pain Score 4-5/10 Oxycodone HCl (Oxyir) 10 mg PO Q4H PRN PRN PRN Reason: Pain Score 6-10/10 Last Admin: 01/10/20 12:52 Dose: 10 mg Documented by: Pantoprazole Sodium (Protonix) 40 mg PO DAILY [facility] Last Admin: 01/10/20 10:44 Dose: 40 mg Documented by: Potassium [facility] Last Admin: 01/10/20 08:20 Dose: 40 meq Documented by: Promethazine HCl (Phenergan) 25 mg IM Q6H PRN PRN PRN Reason: Breakthrough Nausea/Vomiting Sodium Chloride () 10 - 40 ml IV UD PRN PRN Reason: SALINE FLUSH Last Admin: 01/10/20 12:52 Dose: 10 ml Documented by: Medical Necessity - Tobacco Use Smoking Status: Former smoker Assessment/Plan All Active Problems Bilateral cellulitis of lower leg (Acute) Stasis dermatitis of both legs (Acute) Acute systolic (congestive) heart failure (Acute) Acute cholecystitis (Acute) Right upper quadrant abdominal pain (Acute) Abnormal electrocardiogram (Acute) Abnormal echocardiogram (Acute) 1. Bilateral lower extremity stasis dermatitis with cellulitis-IV Unasyn. Wound RN consult. Wound cultures growing gram-negative and gram-positive organisms, final pending. MSSA PCR positive. MRSA negative. Will need outpatient follow-up with wound center. Julio Cesar wraps bilateral lower extremities. Elevate. 2. Chronic heart failure with reduced ejection fraction-stress test 2017 with EF 44%. Echocardiogram demonstrates an EF of 50%. Hold further Lasix per nephrology due to renal function. 3. Acute kidney injury versus chronic kidney disease-last baseline kidney function 2017.9-1. Nephrology following. Renal ultrasound demonstrates 1.2 cm x 1.4 cm calculus in the lower pole of the right kidney. Hold further Lasix. Nephrology discussed with patient potential kidney biopsy. Trend BMP. 4. Hyponatremia- suspect secondary to HCTZ versus hypervolemia. HCTZ on hold. 1500 cc fluid restriction. Trend BMP. 5. Type 2 diabetes mellitus-hold metformin. Accu-Cheks with sliding scale insulin. 6. Hypertension-stable, continue amlodipine, Lasix, metoprolol. Hold valsartan/HCTZ. 7. 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 8. GERD-continue PPI. 9. Morbid obesity-encouraged diet and lifestyle modifications. 10. Nephrolithiasis with microscopic hematuria-we will need outpatient follow- up with urology. DVT prophylaxis-Lovenox This patient was seen by KAYY Galvin under the supervision of Dr. Tripp. <Iván Tripp - Last Filed: 01/10/20 15:03> - Physical Exam Vitals/I&O's: Vital Signs Temp Pulse Resp BP Pulse Ox 36.7 C 94 18 103/59 L 95 01/10/20 10:50 01/10/20 12:07 01/10/20 10:50 01/10/20 10:50 01/10/20 10:50 Oxygen Delivery Method Room Air Weight: 124.4 kg Body Mass Index (BMI) 39.5 Finger Stick Blood Glucose 172 Intake and Output for Last 24 Hours 01/08/20 01/09/20 01/10/20 23:59 23:59 23:59 Intake Total 224 / 464 1556 / 1556 1556 / 1556 Output Total 800 / 800 750 / 750 Balance 224 / 464 756 / 756 806 / 806 General: Alert, Cooperative HEENT: Atraumatic, Normocephalic Lungs: Clear to auscultation, Normal air movement Cardiovascular: Regular rate, Regular Rhythm, Normal S1, Normal S2, No murmurs Abdomen: Bowel Sounds Present, Soft, Non Tender, Non-Distended Extremities: Edema Skin: - Psych/Mental Status: Normal Affect, Appropriate Microbiology Past 72 Hours 01/08/20 15:21 Blood Culture (Wb) - Right Hand Blood Culture - Preliminary No growth in 48 hours. 01/08/20 15:15 Blood Culture (Wb) - Left Hand Blood Culture - Preliminary No growth in 48 hours. 01/08/20 17:35 Wound - Leg, Right Gram Stain - Final 01/08/20 17:35 Wound - Leg, Right Wound Culture - Preliminary Gram negative tayler Gram positive organism 01/08/20 17:35 Wound - Leg, Left Gram Stain - Final 01/08/20 17:35 Wound - Leg, Left Wound Culture - Preliminary Gram negative tayler Gram positive organism Laboratory Results 01/09/20 15:25: Urine Color Cancelled, Urine Clarity Cancelled, Urine pH Cancelled, Ur Specific [place] Cancelled, U Specif Grav (Refrac) Cancelled, Urine Protein Cancelled, Urine Glucose (UA) Cancelled, Urine Ketones Cancelled, Urine Occult Blood Cancelled, Urine Nitrite Cancelled, Urine Bilirubin Cancelled, Urine Urobilinogen Cancelled, Ur Leukocyte Esterase Cancelled, Urine RBC Cancelled, Urine WBC Cancelled, Ur Squamous Epith Cells Cancelled, Ur Transition Epith Cell Cancelled, Ur Renal Epithelial Cell Cancelled, Calcium Oxalate Crystal Cancelled, Uric Acid Crystals Cancelled, Triple Phos Crystals Cancelled, Other Crystals Cancelled, Amorphous Sediment Cancelled, Urine Bacteria Cancelled, Hyaline Casts Cancelled, Fine Granular Casts Cancelled, Coarse Granular Casts Cancelled, Waxy Casts Cancelled, RBC Casts Cancelled, WBC Casts Cancelled, Urine Mucus Cancelled, Urine Trichomonas Cancelled, Urine Yeast Cancelled 01/09/20 16:58: POC Glucose 208 H 01/09/20 18:00: Urine Creatinine 83.20 01/09/20 18:00: U Random Total Protein 13.3 H 01/09/20 18:00: Urine Color Yellow, Urine Clarity Clear, Urine pH 5.0, Ur Specific [place] 1.015, Urine Protein Negative, Urine Glucose (UA) Normal, Urine Ketones Negative, Urine Occult Blood 150 H, Urine Nitrite Negative, Urine Bilirubin Negative, Urine Urobilinogen Normal, Ur Leukocyte Esterase Negative, Urine RBC 5-10 SEEN, Urine WBC 0 SEEN, Ur Squamous Epith Cells 0 SEEN, Urine Bacteria 1+, Urine Mucus 0 SEEN 01/09/20 18:00: Ur Random Sodium 34 01/09/20 21:39: POC Glucose 213 H 01/10/20 05:30: Total Protein (PEP) Pending, IgG Pending, IgA Pending, IgM Pending, Albumin (DAVID) Pending, Albumin/Globulin (DAVID) Pending, Wckib-1-Towixqfyy DAVID Pending, Hmzgy-0-Trlrbtorg DAVID Pending, Beta-Globulins (DAVID) Pending, Gamma Globulins (DAVID) Pending, DAVID M-Diego Pending 01/10/20 05:35: Sodium 126 L, Potassium 4.1, Chloride 90 L, Carbon Dioxide 28.0, Anion Gap 8, BUN 108 H*, Creatinine 3.06 H, Estim Creat Clear Calc 24.52, Est GFR (MDRD) Af Amer 26 L, Est GFR (MDRD) Non-Af 22 L, BUN/Creatinine Ratio 35.3 H , Glucose 199 H, Calcium 8.9 01/10/20 06:43: POC Glucose 178 H 01/10/20 11:52: POC Glucose 261 H Current Medications Acetaminophen (Tylenol) 650 mg PO Q6H PRN PRN PRN Reason: Pain Score 1-10/Temp > 100.7 F Last Admin: 01/10/20 08:26 Dose: 650 mg Documented by: Al Hydroxide/Mg Hydroxide (Mylanta Ii) 30 ml PO Q6H PRN PRN PRN Reason: Gastric Burning Albuterol Sulfate (Ventolin Aerosols) 2.5 mg INHALATION Q2H PRN PRN PRN Reason: SOB/Wheezing Amiodarone HCl (Cordarone) 200 mg PO BID [facility] Last Admin: 01/10/20 10:44 Dose: 200 mg Documented by: Aspirin (Aspirin, Baby) 81 mg PO DAILY@0800 [facility] Last Admin: 01/10/20 08:20 Dose: 81 mg Documented by: Enoxaparin Sodium (Lovenox) 30 mg SC DAILY@0600 [facility] Last Admin: 01/10/20 05:31 Dose: 30 mg Documented by: Guaifenesin (Robitussin) 20 ml PO Q4H PRN PRN PRN Reason: COUGH Hydralazine HCl (Apresoline Iv) 10 mg IV Q4H PRN PRN PRN Reason: Hypertensive Emergency Ampicillin Sodium/Sulbactam (Sodium 3 gm/ Sodium Chloride) 112 mls @ 150 mls/hr IV Q6 [facility] Last Infusion: 01/10/20 12:46 Dose: Infused Documented by: Sodium Chloride () 250 mls @ 15 mls/hr IV .[id number] PRN PRN Reason: Saline Flush Sodium Chloride () 250 mls @ 15 mls/hr IV .[id number] PRN PRN Reason: Additional IVPB Infusion Insulin Glargine (Lantus ([facility])) 10 units SC BREAKFAST [facility] Last Admin: 01/10/20 08:20 Dose: 10 units Documented by: Insulin Human Lispro (Humalog Kwikpen ([facility])) 0 unit SC [facility]; Protocol Last Admin: 01/10/20 11:54 Dose: 6 units Documented by: Lactobacillus Acidophilus (Acidophilus) 1 tablet PO DAILY [facility] Last Admin: 01/10/20 10:44 Dose: 1 tablet Documented by: Magnesium Hydroxide (Milk Of Magnesia) 30 ml PO DAILY PRN PRN PRN Reason: Constipation Melatonin (Melatonin) 3 mg PO QHS PRN PRN PRN Reason: INSOMNIA Metoprolol Tartrate (Lopressor (Beta Emilie)) 50 mg PO BID [facility] Nitroglycerin (Nitrostat) 0.4 mg SUBLINGUAL Q5M PRN PRN Reason: CARDIAC/CHEST PAIN Oxycodone HCl (Oxyir) 5 mg PO Q4H PRN PRN PRN Reason: Pain Score 4-5/10 Oxycodone HCl (Oxyir) 10 mg PO Q4H PRN PRN PRN Reason: Pain Score 6-10/10 Last Admin: 01/10/20 12:52 Dose: 10 mg Documented by: Pantoprazole Sodium (Protonix) 40 mg PO DAILY [facility] Last Admin: 01/10/20 10:44 Dose: 40 mg Documented by: Potassium Chloride (K-Dur) 40 meq PO DAILYCM [facility] Last Admin: 01/10/20 08:20 Dose: 40 meq Documented by: Promethazine HCl (Phenergan) 25 mg IM Q6H PRN PRN PRN Reason: Breakthrough Nausea/Vomiting Sodium Chloride () 10 - 40 ml IV UD PRN PRN Reason: SALINE FLUSH Last Admin: 01/10/20 12:52 Dose: 10 ml Documented by: Assessment/Plan Patient seen and examined independently. Data reviewed. I agree with the above note by the nurse practitioner. 1. Bilateral lower extremity venous stasis dermatitis.'s bilateral so making the likelihood of this being cellulitis very low. Wounds, however, are growing gram-negative rods as well as gram-positive organisms. This may be more contaminated than actual true infection. Continue with ampicillin/sulbactam for now. Echocardiogram performed showed an EF of 50%. No RV evaluation. Continue with Julio Cesar wraps and keeping legs elevated as much as possible. For the edema, would add IV furosemide for now. 2. AUGUSTINE: diuretics held. Nephrology on consult and tests ordered. 3. Hyponatremia: Ongoing. May be related with HCTZ plus minus dilution from hypervolemia: Monitor. Inpatient E&M: 88765 Subs Hosp L2
[2020-01-10 17:00] LABS: Bedside Glucose 212 mg/dL (70-110)
[2020-01-10] MEDS: Metoprolol Tartrate 50 MG Tablet PO (21:15)
[2020-01-10 21:36] LABS: Bedside Glucose 215 mg/dL (70-110)
[2020-01-11] VITALS (11 sets, daily range): BP systolic 97–142; BP diastolic 39–59; PULSE 64–92; RESP 12–18; TEMP 36.6–37; O2SAT 93–98
[2020-01-11] MEDS: oxyCODONE 5 MG Tablet 10 MG PO (01:23)
[2020-01-11] MEDS: Enoxaparin 30 MG/0.3 ML Syringe SC (06:28)
[2020-01-11] MEDS: Insulin Lispro 100 UNIT/ML INSULN.PEN SC ×4 (06:28→20:50)
[2020-01-11] MEDS: oxyCODONE 5 MG Tablet PO ×4 (06:32→20:52)
[2020-01-11 06:42] LABS: Anion Gap 10 (5-15); BUN 112 mg/dL (7-18); BUN/Creat Ratio 28.9 RATIO (10-20); Calcium,Total 9.2 mg/dL (8.5-10.1); Chloride 92 mmol/L (98-107); Creatinine, Serum 3.88 mg/dL (0.70-1.30); EST Glomerular Filtration Rate 17 mL/min (>60); Est Glom Filt Rate - Afr Amer 20 mL/min (>60); Estimated Creatinine Clearance 19.34 ml/min; Glucose 170 mg/dL (74-106); Potassium 4.9 mmol/L (3.5-5.1); Sodium Level 128 mmol/L (136-145)
[2020-01-11 06:56] LABS: Bedside Glucose 160 mg/dL (70-110)
[2020-01-11] MEDS: Aspirin 81 MG TAB.CHEW PO (07:58)
[2020-01-11] MEDS: Acetaminophen 325 MG Tablet 650 MG PO ×2 (07:58→16:17)
--- NOTE | 2020-01-11 09:22 | PCM.PN.REN ---
Patient Problems: Active and Suspected Problems Bilateral cellulitis of lower leg (Acute) Stasis dermatitis of both legs (Acute) Subjective: NO SOB le EDEMA BETTER - Physical Exam Vitals/I&O's: Vital Signs Temp Pulse Resp BP Pulse Ox 98.6 F 64 16 100/48 L 93 01/11/20 03:15 01/11/20 06:46 01/11/20 03:15 01/11/20 03:15 01/11/20 07:24 Oxygen Delivery Method Room Air Weight: 126.7 kg Body Mass Index (BMI) 39.5 Finger Stick Blood Glucose 172 Intake and Output for Last 24 Hours 01/09/20 01/10/20 01/11/20 23:59 23:59 23:59 Intake Total 1556 / 1556 2358 / 2358 364 / 364 Output Total 800 / 800 1200 / 1200 150 / 150 Balance 756 / 756 1158 / 1158 214 / 214 General: Alert, Cooperative HEENT: Atraumatic, Normocephalic Neck: Supple, Trachea Midline Lungs: Clear to auscultation, Normal air movement Cardiovascular: Regular rate, Regular Rhythm, Normal S1, Normal S2 Abdomen: Bowel Sounds Present, Soft, Non Tender Extremities: Edema, - - sreekanth wraps Microbiology Past 72 Hours 01/08/20 17:35 Wound - Leg, Right Gram Stain - Final 01/08/20 17:35 Wound - Leg, Right Wound Culture - Preliminary Serratia marcescens Proteus mirabilis 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 01/08/20 15:15 Blood Culture (Wb) - Left Hand Blood Culture - Preliminary No growth in 48 hours. Laboratory Results 01/09/20 13:08: Ur Total Protein 24 Hr Pending, Urine Total Protein Pending, Urine Albumin Pending, U Wwkjo-3-Xcehdviq Pending, U Mymbi-1-Ojwbdtgf Pending, U Beta Globulin Pending, U Gamma Globulin Pending 01/09/20 13:08: Ur Total Protein 24 Hr Pending, Urine Total Protein Pending, Urine Albumin Pending, U Bqkqr-0-Ytoeckxb Pending, U Qkmyr-3-Gwezhscd Pending, U Beta Globulin Pending, U Gamma Globulin Pending 01/10/20 11:52: POC Glucose 261 H 01/10/20 16:41: POC Glucose 212 H 01/10/20 21:06: POC Glucose 215 H 01/11/20 05:50: Sodium 128 L, Potassium 4.9, Chloride 92 L, Carbon Dioxide 26.0, Anion Gap 10, BUN 112 H*, Creatinine 3.88 H, Estim Creat Clear Calc 19.34, Est GFR (MDRD) Af Amer 20 L, Est GFR (MDRD) Non-Af 17 L, BUN/Creatinine Ratio 28.9 H, Glucose 170 H, Calcium 9.2 01/11/20 06:27: POC Glucose 160 H Current Medications Acetaminophen (Tylenol) 650 mg PO Q6H PRN PRN PRN Reason: Pain Score 1-10/Temp > 100.7 F Last Admin: 01/11/20 07:58 Dose: 650 mg Documented by: Al Hydroxide/Mg Hydroxide (Mylanta Ii) 30 ml PO Q6H PRN PRN PRN Reason: Gastric Burning Albuterol Sulfate (Ventolin Aerosols) 2.5 mg INHALATION Q2H PRN PRN PRN Reason: SOB/Wheezing Amiodarone HCl (Cordarone) 200 mg PO BID [facility] Last Admin: 01/10/20 21:15 Dose: 200 mg Documented by: Aspirin (Aspirin, Baby) 81 mg PO DAILY@0800 [facility] Last Admin: 01/11/20 07:58 Dose: 81 mg Documented by: Enoxaparin Sodium (Lovenox) 30 mg SC DAILY@0600 [facility] Last Admin: 01/11/20 06:28 Dose: 30 mg Documented by: Guaifenesin (Robitussin) 20 ml PO Q4H PRN PRN PRN Reason: COUGH Hydralazine HCl (Apresoline Iv) 10 mg IV Q4H PRN PRN PRN Reason: Hypertensive Emergency Ampicillin Sodium/Sulbactam (Sodium 3 gm/ Sodium Chloride) 112 mls @ 150 mls/hr IV Q6 [facility] Last Infusion: 01/11/20 08:00 Dose: Infused Documented by: Sodium Chloride () 250 mls @ 15 mls/hr IV .[id number] PRN PRN Reason: Saline Flush Sodium Chloride () 250 mls @ 15 mls/hr IV .[id number] PRN PRN Reason: Additional IVPB Infusion Insulin Glargine (Lantus ([facility]k)) 10 units SC BREAKFAST [facility] Last Admin: 01/11/20 07:58 Dose: 10 units Documented by: Insulin Human Lispro (Humalog Kwikpen ([facility])) 0 unit SC ACHS [facility]; Protocol Last Admin: 01/11/20 06:28 Dose: 2 units Documented by: Lactobacillus Acidophilus (Acidophilus) 1 tablet PO DAILY [facility] Last Admin: 01/10/20 10:44 Dose: 1 tablet Documented by: Magnesium Hydroxide (Milk Of Magnesia) 30 ml PO DAILY PRN PRN PRN Reason: Constipation Melatonin (Melatonin) 3 mg PO QHS PRN PRN PRN Reason: INSOMNIA Metoprolol Tartrate (Lopressor (Beta Emilie)) 50 mg PO BID [facility] Last Admin: 01/10/20 21:15 Dose: 50 mg Documented by: Nitroglycerin (Nitrostat) 0.4 mg SUBLINGUAL Q5M PRN PRN Reason: CARDIAC/CHEST PAIN Oxycodone HCl (Oxyir) 5 mg PO Q4H PRN PRN PRN Reason: Pain Score 4-5/10 Last Admin: 01/11/20 06:32 Dose: 5 mg Documented by: Oxycodone HCl (Oxyir) 10 mg PO Q4H PRN PRN PRN Reason: Pain Score 6-10/10 Last Admin: 01/11/20 01:23 Dose: 10 mg Documented by: Pantoprazole Sodium (Protonix) 40 mg PO DAILY [facility] Last Admin: 01/10/20 10:44 Dose: 40 mg Documented by: Potassium [facility]Dur[facility] Last Admin: 01/11/20 07:58 Dose: 40 meq Documented by: Promethazine HCl (Phenergan) 25 mg IM Q6H PRN PRN PRN Reason: Breakthrough Nausea/Vomiting Sodium Chloride () 10 - 40 ml IV UD PRN PRN Reason: SALINE FLUSH Last Admin: 01/10/20 18:27 Dose: 10 ml Documented by: Medical Necessity - Tobacco Use Smoking Status: Former smoker Assessment/Plan All Active Problems Bilateral cellulitis of lower leg (Acute) Stasis dermatitis of both legs (Acute) Acute systolic (congestive) heart failure (Acute) Acute cholecystitis (Acute) Right upper quadrant abdominal pain (Acute) Abnormal electrocardiogram (Acute) Abnormal echocardiogram (Acute) AUGUSTINE with possible CKD unknown baseline with superimposed prerenal state and some degree of ATN with diuretics and NSAIDs and during hospital persistent hypotension.Also in DDX IR GN. HTN Microscopic hematuria Nephrolithiasis Lower extremity edema Heart failure worsening renal function hold lasix for now.Scr 3.88.no need for TRAINING PERSONNEL SUPERVISOR will evaluate daily TRAINING PERSONNEL SUPERVISOR needs. worsening renal failure likely worsening ATN with hypotension now bp better get serologies urology outpatient for nephrolitihiasis and microscopic hematuria.Likely microscopic hematuria from stone but cannot r/o GN. 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
[2020-01-11] MEDS: Pantoprazole Sodium 40 MG Tablet PO (09:28)
[2020-01-11] MEDS: Amiodarone 200 MG Tablet PO ×2 (10:12→20:50)
[2020-01-11] MEDS: 0.9% Saline Lock 10 ML Syringe IV (11:07)
[2020-01-11 11:16] LABS: Bedside Glucose 181 mg/dL (70-110)
--- NOTE | 2020-01-11 11:53 | PN_ITS ---
<RajeshElsi [employer] - Last Filed: 01/11/20 12:06> Patient Problems: Active and Suspected Problems Bilateral cellulitis of lower leg (Acute) Stasis dermatitis of both legs (Acute) Subjective: Patient seen and examined. No acute events overnight. Renal function worsened from prior. Nephrology discussed with patient kidney biopsy and potential need for dialysis if kidney function continues to decline. Further discussed in depth with patient these options and he is going to consider kidney biopsy. - Physical Exam Vitals/I&O's: Vital Signs Temp Pulse Resp BP Pulse Ox 97.9 F 74 18 97/39 L 98 01/11/20 09:25 01/11/20 10:12 01/11/20 09:25 01/11/20 10:12 01/11/20 09:25 Oxygen Delivery Method Room Air Weight: 279 lb 5.211 oz Body Mass Index (BMI) 39.5 Finger Stick Blood Glucose 172 Intake and Output for Last 24 Hours 01/09/20 01/10/20 01/11/20 23:59 23:59 23:59 Intake Total 1556 / 1556 2358 / 2358 764 / 764 Output Total 800 / 800 1200 / 1200 150 / 150 Balance 756 / 756 1158 / 1158 614 / 614 General: Alert, Oriented x3, Cooperative HEENT: Atraumatic, PERRLA, EOMI, Normocephalic Neck: Supple, No JVD, Negative Carotid Bruits Lungs: Clear to auscultation, Normal air movement Cardiovascular: Regular rate, No murmurs Abdomen: Bowel Sounds Present, Soft, Non Tender, Non-Distended Extremities: No clubbing, No cyanosis, Edema - BLLE Skin: - - Bilateral lower extremity stasis dermatitis with yellow crusted appearance and underlying erythema/inflammation. Midly improved. Musculoskeletal: No Tenderness to Palpation of Joints or Extremities Neurological: Cranial nerves II-XII grossly intact, Neuro grossly intact Psych/Mental Status: Normal Affect, Appropriate Microbiology Past 72 Hours 01/08/20 17:35 Wound - Leg, Right Gram Stain - Final 01/08/20 17:35 Wound - Leg, Right Wound Culture - Preliminary Serratia marcescens Proteus mirabilis GNR lactose area coordinator Corynebacterium striatum 01/08/20 17:35 Wound - Leg, Left Gram Stain - Final 01/08/20 17:35 Wound - Leg, Left Wound Culture - Preliminary Serratia marcescens Proteus mirabilis GNR lactose area coordinator Corynebacterium striatum 01/08/20 15:21 Blood Culture (Wb) - Right Hand Blood Culture - Preliminary No growth in 48 hours. 01/08/20 15:15 Blood Culture (Wb) - Left Hand Blood Culture - Preliminary No growth in 48 hours. Laboratory Results 01/09/20 13:08: Ur Total Protein 24 Hr Pending, Urine Total Protein Pending, Ur ine Albumin Pending, U Lmxuf-4-Ehbccojr Pending, U Hmffk-8-Fpemkgpd Pending, U Beta Globulin Pending, U Gamma Globulin Pending 01/09/20 13:08: Ur Total Protein 24 Hr Pending, Urine Total Protein Pending, Urine Albumin Pending, U Znwtz-8-Mspjlyxk Pending, U Jthsx-1-Peswoppz Pending, U Beta Globulin Pending, U Gamma Globulin Pending 01/10/20 11:52: POC Glucose 261 H 01/10/20 16:41: POC Glucose 212 H 01/10/20 21:06: POC Glucose 215 H 01/11/20 05:50: Sodium 128 L, Potassium 4.9, Chloride 92 L, Carbon Dioxide 26.0, Anion Gap 10, BUN 112 H*, Creatinine 3.88 H, Estim Creat Clear Calc 19.34, Est GFR (MDRD) Af Amer 20 L, Est GFR (MDRD) Non-Af 17 L, BUN/Creatinine Ratio 28.9 H , Glucose 170 H, Calcium 9.2 01/11/20 06:27: POC Glucose 160 H 01/11/20 10:04: RPR Pending 01/11/20 10:04: KAYLEE Screen Pending, YUE-1 Antibody Pending, SS-A/Ro IgG Antibody Pending, SS-B/La IgG Antibody Pending, Sm (Tang) Antibody Pending, SAND CARRIER Antibody Pending, Scl-70 Scleroderma Ab Pending, Double Strand DNA Ab Pending, Centromere B Antibody Pending 01/11/20 10:04: c-ANCA Antibody Pending, p-ANCA Antibody Pending, Glomerular Base Memb Ab Pending, Complement C3 Pending, Complement C4 Pending 01/11/20 11:05: POC Glucose 181 H Current Medications Acetaminophen (Tylenol) 650 mg PO Q6H PRN PRN PRN Reason: Pain Score 1-10/Temp > 100.7 F Last Admin: 01/11/20 07:58 Dose: 650 mg Documented by: Al Hydroxide/Mg Hydroxide (Mylanta Ii) 30 ml PO Q6H PRN PRN PRN Reason: Gastric Burning Albuterol Sulfate (Ventolin Aerosols) 2.5 mg INHALATION Q2H PRN PRN PRN Reason: SOB/Wheezing Amiodarone HCl (Cordarone) 200 mg PO BID [facility] Last Admin: 01/11/20 10:12 Dose: 200 mg Documented by: Aspirin (Aspirin, Baby) 81 mg PO DAILY@0800 [facility] Last Admin: 01/11/20 07:58 Dose: 81 mg Documented by: Enoxaparin Sodium (Lovenox) 30 mg SC DAILY@0600 [facility] Last Admin: 01/11/20 06:28 Dose: 30 mg Documented by: Guaifenesin (Robitussin) 20 ml PO Q4H PRN PRN PRN Reason: COUGH Hydralazine HCl (Apresoline Iv) 10 mg IV Q4H PRN PRN PRN Reason: Hypertensive Emergency Ampicillin Sodium/Sulbactam (Sodium 3 gm/ Sodium Chloride) 112 mls @ 150 mls/hr IV Q6 [facility] Last Admin: 01/11/20 11:07 Dose: 150 mls/hr Documented by: Sodium Chloride () 250 mls @ 15 mls/hr IV .[id number] PRN PRN Reason: Saline Flush Sodium Chloride () 250 mls @ 15 mls/hr IV .[id number] PRN PRN Reason: Additional IVPB Infusion Insulin Glargine (Lantus (Bkc)) 10 units SC BREAKFAST [facility] Last Admin: 01/11/20 07:58 Dose: 10 units Documented by: Insulin Human Lispro (Humalog Kwikpen (Bkc)) 0 unit SC ACHS [facility]; Protocol Last Admin: 01/11/20 11:07 Dose: 2 units Documented by: Lactobacillus Acidophilus (Acidophilus) 1 tablet PO DAILY [facility] Last Admin: 01/11/20 09:28 Dose: 1 tablet Documented by: Magnesium Hydroxide (Milk Of Magnesia) 30 ml PO DAILY PRN PRN PRN Reason: Constipation Melatonin (Melatonin) 3 mg PO QHS PRN PRN PRN Reason: INSOMNIA Metoprolol Tartrate (Lopressor (Beta Emilie)) 50 mg PO BID [facility] Last Admin: 01/11/20 10:12 Dose: Not Given Documented by: Nitroglycerin (Nitrostat) 0.4 mg SUBLINGUAL Q5M PRN PRN Reason: CARDIAC/CHEST PAIN Oxycodone HCl (Oxyir) 5 mg PO Q4H PRN PRN PRN Reason: Pain Score 4-5/10 Last Admin: 01/11/20 11:13 Dose: 5 mg Documented by: Oxycodone HCl (Oxyir) 10 mg PO Q4H PRN PRN PRN Reason: Pain Score 6-10/10 Last Admin: 01/11/20 01:23 Dose: 10 mg Documented by: Pantoprazole Sodium (Protonix) 40 mg PO DAILY [facility] Last Admin: 01/11/20 09:28 Dose: 40 mg Documented by: Promethazine HCl (Phenergan) 25 mg IM Q6H PRN PRN PRN Reason: Breakthrough Nausea/Vomiting Sodium Chloride () 10 - 40 ml IV UD PRN PRN Reason: SALINE FLUSH Last Admin: 01/11/20 11:07 Dose: 10 ml Documented by: Medical Necessity - Tobacco Use Smoking Status: Former smoker Assessment/Plan All Active Problems Bilateral cellulitis of lower leg (Acute) Stasis dermatitis of both legs (Acute) Acute systolic (congestive) heart failure (Acute) Acute cholecystitis (Acute) Right upper quadrant abdominal pain (Acute) Abnormal electrocardiogram (Acute) Abnormal echocardiogram (Acute) 1. Bilateral lower extremity stasis dermatitis with cellulitis-Wound cultures growing multiple organisms including Serratia marcescens, proteus mirabilis, corynebacterium straitum, GNR lactose area coordinator. Continue IV Unasyn pending final culture and sensitivities. MSSA PCR positive. MRSA negative. Will need outpatient follow-up with wound center. Julio Cesar wraps bilateral lower extremities. Elevate. Wound RN following. 2. Chronic heart failure with reduced ejection fraction-stress test 2017 with EF 44%. Echocardiogram demonstrates an EF of 50%. Hold further Lasix per nephrology due to renal function. 3. Acute kidney injury versus chronic kidney disease-last baseline kidney function 2016.9-1. Creatinine from PCP office 12/09/2019 1.11. Nephrology following. Renal ultrasound demonstrates 1.2 cm x 1.4 cm calculus in the lower pole of the right kidney. Hold further Lasix. Nephrology discussed with patient potential kidney biopsy. We will hold aspirin for potential biopsy. Nephrology suspects worsening ATN with hypotension. Serologies pending. Possible dialysis if renal function continues to worsen. 4. Hyponatremia-trending upward. Suspect secondary to HCTZ versus hypervolemia. HCTZ on hold. 1500 cc fluid restriction. Trend BMP. 5. Type 2 diabetes mellitus-hold metformin. Accu-Cheks with sliding scale insulin. 6. Hypertension-amlodipine, Lasix, valsartan/HCTZ currently on hold. Metoprolol reduced to 25 mg twice daily. 7. 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 8. GERD-continue PPI. 9. Morbid obesity-encouraged diet and lifestyle modifications. 10. Nephrolithiasis with microscopic hematuria-we will need outpatient follow- up with urology. DVT prophylaxis-Lovenox This patient was seen by KAYY Galvin under the supervision of Dr. Tripp. <Iván Tripp - Last Filed: 01/11/20 14:40> - Physical Exam Vitals/I&O's: Vital Signs Temp Pulse Resp BP Pulse Ox 36.6 C 74 18 97/39 L 98 01/11/20 09:25 01/11/20 10:12 01/11/20 09:25 01/11/20 10:12 01/11/20 09:25 Oxygen Delivery Method Room Air Weight: 126.7 kg Body Mass Index (BMI) 39.5 Finger Stick Blood Glucose 172 Intake and Output for Last 24 Hours 01/09/20 01/10/20 01/11/20 23:59 23:59 23:59 Intake Total 1556 / 1556 2358 / 2358 876 / 876 Output Total 800 / 800 1200 / 1200 150 / 150 Balance 756 / 756 1158 / 1158 726 / 726 General: Alert, Cooperative HEENT: Atraumatic, Normocephalic Lungs: Clear to auscultation, Normal air movement Cardiovascular: Regular rate, No murmurs Abdomen: Bowel Sounds Present, Soft, Non Tender, Non-Distended Extremities: No clubbing, No cyanosis, Edema Skin: - Musculoskeletal: No Tenderness to Palpation of Joints or Extremities Neurological: Cranial nerves II-XII grossly intact, Neuro grossly intact Psych/Mental Status: Normal Affect, Appropriate Microbiology Past 72 Hours 01/08/20 17:35 Wound - Leg, Right Gram Stain - Final 01/08/20 17:35 Wound - Leg, Right Wound Culture - Preliminary Serratia marcescens Proteus mirabilis GNR lactose area coordinator Corynebacterium striatum 01/08/20 17:35 Wound - Leg, Left Gram Stain - Final 01/08/20 17:35 Wound - Leg, Left Wound Culture - Preliminary Serratia marcescens Proteus mirabilis GNR lactose area coordinator Corynebacterium striatum 01/08/20 15:21 Blood Culture (Wb) - Right Hand Blood Culture - Preliminary No growth in 48 hours. 01/08/20 15:15 Blood Culture (Wb) - Left Hand Blood Culture - Preliminary No growth in 48 hours. Laboratory Results 01/09/20 13:08: Ur Total Protein 24 Hr Pending, Urine Total Protein Pending, Urine Albumin Pending, U Pynbs-7-Kkcxvjbk Pending, U Pvhge-3-Mtbloucx Pending, U Beta Globulin Pending, U Gamma Globulin Pending 01/09/20 13:08: Ur Total Protein 24 Hr Pending, Urine Total Protein Pending, Urine Albumin Pending, U Iokkb-4-Njynhrcz Pending, U Gqjoc-2-Hbcxwlvh Pending, U Beta Globulin Pending, U Gamma Globulin Pending 01/10/20 16:41: POC Glucose 212 H 01/10/20 21:06: POC Glucose 215 H 01/11/20 05:50: Sodium 128 L, Potassium 4.9, Chloride 92 L, Carbon Dioxide 26.0, Anion Gap 10, BUN 112 H*, Creatinine 3.88 H, Estim Creat Clear Calc 19.34, Est GFR (MDRD) Af Amer 20 L, Est GFR (MDRD) Non-Af 17 L, BUN/Creatinine Ratio 28.9 H , Glucose 170 H, Calcium 9.2 01/11/20 06:27: POC Glucose 160 H 01/11/20 10:04: RPR Pending 01/11/20 10:04: KAYLEE Screen Pending, YUE-1 Antibody Pending, SS-A/Ro IgG Antibody Pending, SS-B/La IgG Antibody Pending, Sm (Tang) Antibody Pending, SAND CARRIER Antibody Pending, Scl-70 Scleroderma Ab Pending, Double Strand DNA Ab Pending, Centromere B Antibody Pending 01/11/20 10:04: c-ANCA Antibody Pending, p-ANCA Antibody Pending, Glomerular Base Memb Ab Pending, Complement C3 Pending, Complement C4 Pending 01/11/20 11:05: POC Glucose 181 H Current Medications Acetaminophen (Tylenol) 650 mg PO Q6H PRN PRN PRN Reason: Pain Score 1-10/Temp > 100.7 F Last Admin: 01/11/20 07:58 Dose: 650 mg Documented by: Al Hydroxide/Mg Hydroxide (Mylanta Ii) 30 ml PO Q6H PRN PRN PRN Reason: Gastric Burning Albuterol Sulfate (Ventolin Aerosols) 2.5 mg INHALATION Q2H PRN PRN PRN Reason: SOB/Wheezing Amiodarone HCl (Cordarone) 200 mg PO BID [facility] Last Admin: 01/11/20 10:12 Dose: 200 mg Documented by: Enoxaparin Sodium (Lovenox) 30 mg SC DAILY@0600 [facility] Last Admin: 01/11/20 06:28 Dose: 30 mg Documented by: Guaifenesin (Robitussin) 20 ml PO Q4H PRN PRN PRN Reason: COUGH Hydralazine HCl (Apresoline Iv) 10 mg IV Q4H PRN PRN PRN Reason: Hypertensive Emergency Ampicillin Sodium/Sulbactam (Sodium 3 gm/ Sodium Chloride) 112 mls @ 150 mls/hr IV Q6 [facility] Last Infusion: 01/11/20 12:27 Dose: Infused Documented by: Sodium Chloride () 250 mls @ 15 mls/hr IV .[id number] PRN PRN Reason: Saline Flush Sodium Chloride () 250 mls @ 15 mls/hr IV .[id number] PRN PRN Reason: Additional IVPB Infusion Insulin Glargine (Lantus (Bk)) 10 units SC BREAKFAST [facility] Last Admin: 01/11/20 07:58 Dose: 10 units Documented by: Insulin Human Lispro (Humalog Kwikpen (Bk)) 0 unit SC ACHS [facility]; Protocol Last Admin: 01/11/20 11:07 Dose: 2 units Documented by: Lactobacillus Acidophilus (Acidophilus) 1 tablet PO DAILY [facility] Last Admin: 01/11/20 09:28 Dose: 1 tablet Documented by: Magnesium Hydroxide (Milk Of Magnesia) 30 ml PO DAILY PRN PRN PRN Reason: Constipation Melatonin (Melatonin) 3 mg PO QHS PRN PRN PRN Reason: INSOMNIA Metoprolol Tartrate (Lopressor (Beta Emilie)) 25 mg PO BID [facility] Nitroglycerin (Nitrostat) 0.4 mg SUBLINGUAL Q5M PRN PRN Reason: CARDIAC/CHEST PAIN Oxycodone HCl (Oxyir) 5 mg PO Q4H PRN PRN PRN Reason: Pain Score 4-5/10 Last Admin: 01/11/20 11:13 Dose: 5 mg Documented by: Pantoprazole Sodium (Protonix) 40 mg PO DAILY [facility] Last Admin: 01/11/20 09:28 Dose: 40 mg Documented by: Promethazine HCl (Phenergan) 25 mg IM Q6H PRN PRN PRN Reason: Breakthrough Nausea/Vomiting Sodium Chloride () 10 - 40 ml IV UD PRN PRN Reason: SALINE FLUSH Last Admin: 01/11/20 11:07 Dose: 10 ml Documented by: Assessment/Plan Patient seen and examined independently. Data reviewed. I agree with the above note by the nurse practitioner. 1. Bilateral lower extremity venous stasis dermatitis.'s bilateral so making the likelihood of this being cellulitis very low. Wounds, however, are growing gram-negative rods as well as gram-positive organisms. This may be more contaminated than actual true infection. Continue with ampicillin/sulbactam for now. Echocardiogram performed showed an EF of 50%. No RV evaluation. Continue with Julio Cesar wraps and keeping legs elevated as much as possible. For the edema, would add IV furosemide for now. 2. AUGUSTINE: Nonoliguric worse again. Diuretics held. Nephrology on consult and tests ordered. Patient declined kidney biopsy. 3. Hyponatremia: Ongoing. May be related with HCTZ plus minus dilution from hypervolemia: Monitor. Inpatient E&M: 75299 Subs Hosp L2
--- NOTE | 2020-01-11 15:21 | NURSING ---
wound photo: right lower leg
--- NOTE | 2020-01-11 15:22 | NURSING ---
wound photo: left lower leg
[2020-01-11 16:56] LABS: Bedside Glucose 165 mg/dL (70-110)
[2020-01-11 20:08] LABS: Albumin 2.8 g/dL (2.9-4.4); Alpha-1-Globulins 0.4 g/dL (0.0-0.4); Alpha-2-Globulins 0.9 g/dL (0.4-1.0); Gamma Globulin 0.8 g/dL (0.4-1.8); Immunoglobulin A 277 mg/dL (61-437); Immunoglobulin G 842 mg/dL (603-1613); Immunoglobulin M 39 mg/dL (20-172); PROEL- TOTAL PROTEIN 5.7 g/dL (6.0-8.5)
[2020-01-11] MEDS: Metoprolol Tartrate 25 MG Tablet PO (20:50)
[2020-01-12] VITALS (12 sets, daily range): BP systolic 112–147; BP diastolic 56–72; PULSE 69–116; RESP 14–18; TEMP 36.8–37.2; O2SAT 93–98
[2020-01-12 00:11] LABS: Bedside Glucose 172 mg/dL (70-110)
[2020-01-12] MEDS: oxyCODONE 5 MG Tablet PO ×3 (00:58→21:07)
[2020-01-12] MEDS: Acetaminophen 325 MG Tablet 650 MG PO ×2 (00:58→21:07)
[2020-01-12 04:31] LABS: Rapid Plasmin Reagin (RPR) NONREACTIVE (NONREACTIVE)
[2020-01-12 06:45] LABS: Bedside Glucose 149 mg/dL (70-110)
[2020-01-12 07:18] LABS: Anion Gap 11 (5-15); BUN 117 mg/dL (7-18); BUN/Creat Ratio 28.4 RATIO (10-20); Calcium,Total 8.9 mg/dL (8.5-10.1); Chloride 94 mmol/L (98-107); Creatinine, Serum 4.12 mg/dL (0.70-1.30); EST Glomerular Filtration Rate 16 mL/min (>60); Est Glom Filt Rate - Afr Amer 19 mL/min (>60); Estimated Creatinine Clearance 18.21 ml/min; Glucose 147 mg/dL (74-106); Sodium Level 130 mmol/L (136-145)
[2020-01-12] MEDS: Ceftriaxone 1 GM/50 ML BAG IV (09:09)
[2020-01-12] MEDS: Pantoprazole Sodium 40 MG Tablet PO (09:12)
[2020-01-12] MEDS: Metoprolol Tartrate 25 MG Tablet PO ×2 (09:13→21:07)
[2020-01-12] MEDS: Amiodarone 200 MG Tablet PO ×2 (09:13→21:06)
[2020-01-12 11:35] LABS: Bedside Glucose 121 mg/dL (70-110)
--- NOTE | 2020-01-12 12:16 | PCM.PN.HOSP ---
<Jey Osorio - Last Filed: 01/12/20 12:16> Patient Problems: Active and Suspected Problems Bilateral cellulitis of lower leg (Acute) Stasis dermatitis of both legs (Acute) Reason for Visit: AUGUSTINE cellulitis Subjective: No SOB, no fever/chills. Ongoing LE edema. Pt agreeable to renal bx today. Vitals/I&O's: Vital Signs Temp Pulse Resp BP Pulse Ox 98.4 F 74 16 112/59 L 98 01/12/20 09:25 01/12/20 09:25 01/12/20 09:25 01/12/20 09:25 01/12/20 09:35 Oxygen Delivery Method Room Air Weight: 280 lb 10.375 oz Body Mass Index (BMI) 39.5 Finger Stick Blood Glucose 172 Intake and Output for Last 24 Hours 01/10/20 01/11/20 01/12/20 23:59 23:59 23:59 Intake Total 2358 / 2358 1396 / 1396 70 / 70 Output Total 1200 / 1200 850 / 850 150 / 150 Balance 1158 / 1158 546 / 546 -80 / -80 General: Alert, Oriented x3, Cooperative HEENT: Atraumatic, PERRLA, EOMI, Normocephalic Neck: Supple, No JVD, Negative Carotid Bruits Lungs: Clear to auscultation, Normal air movement Cardiovascular: Regular rate, No murmurs Abdomen: Bowel Sounds Present, Soft, Non Tender Extremities: No edema, Capillary Refill Less than 3 Seconds, Edema - 3+ BL LE edema erythema warmth serosanguinous drainage. Skin: No rashes, No breakdown Musculoskeletal: No Tenderness to Palpation of Joints or Extremities Neurological: Cranial nerves II-XII grossly intact Psych/Mental Status: Normal Affect, Appropriate, Alert and oriented to time, place, person, mood and affect Microbiology Past 72 Hours 01/08/20 17:35 Wound - Leg, Right Gram Stain - Final 01/08/20 17:35 Wound - Leg, Right Wound Culture - Preliminary Serratia marcescens Proteus mirabilis GNR lactose employment officer Corynebacterium striatum 01/08/20 17:35 Wound - Leg, Left Gram Stain - Final 01/08/20 17:35 Wound - Leg, Left Wound Culture - Preliminary Serratia marcescens Proteus mirabilis GNR lactose employment officer Corynebacterium striatum 01/08/20 15:21 Blood Culture (Wb) - Right Hand Blood Culture - Preliminary No growth in 48 hours. 01/08/20 15:15 Blood Culture (Wb) - Left Hand Blood Culture - Preliminary No growth in 48 hours. Laboratory Results 01/10/20 05:30: Total Protein (PEP) 5.7 L, Globulin 2.9, IgG 842, IgA 277, IgM 39, Immunofixation Screen Comment, Albumin (DAVID) 2.8 L, Albumin/Globulin (DAVID) 1.0, Oowfq-0-Rxaimyoqi DAVID 0.4, Yskog-6-Htfofcknk DAVID 0.9, Beta-Globulins (DAVID) 0.8, Gamma Globulins (DAVID) 0.8, DAVID M-Diego , DAVID Comments Comment 01/11/20 10:04: RPR NONREACTIVE 01/11/20 16:21: POC Glucose 165 H 01/11/20 20:48: POC Glucose 172 H 01/12/20 06:24: Sodium 130 L, Potassium 5.0, Chloride 94 L, Carbon Dioxide 25.0, Anion Gap 11, BUN 117 H*, Creatinine 4.12 H, Estim Creat Clear Calc 18.21, Est GFR (MDRD) Af Amer 19 L, Est GFR (MDRD) Non-Af 16 L, BUN/Creatinine Ratio 28.4 H, Glucose 147 H, Calcium 8.9 01/12/20 06:32: POC Glucose 149 H 01/12/20 11:30: POC Glucose 121 H Current Medications Acetaminophen (Tylenol) 650 mg PO Q6H PRN PRN PRN Reason: Pain Score 1-10/Temp > 100.7 F Last Admin: 01/12/20 00:58 Dose: 650 mg Documented by: Al Hydroxide/Mg Hydroxide (Mylanta Ii) 30 ml PO Q6H PRN PRN PRN Reason: Gastric Burning Albuterol Sulfate (Ventolin Aerosols) 2.5 mg INHALATION Q2H PRN PRN PRN Reason: SOB/Wheezing Amiodarone HCl (Cordarone) 200 mg PO BID [facility] Last Admin: 01/12/20 09:13 Dose: 200 mg Documented by: Enoxaparin Sodium (Lovenox) 30 mg SC DAILY@0600 [facility] Last Admin: 01/12/20 07:44 Dose: Not Given Documented by: Guaifenesin (Robitussin) 20 ml PO Q4H PRN PRN PRN Reason: COUGH Hydralazine HCl (Apresoline Iv) 10 mg IV Q4H PRN PRN PRN Reason: Hypertensive Emergency Sodium Chloride () 250 mls @ 15 mls/hr IV .[id number] PRN PRN Reason: Saline Flush Sodium Chloride () 250 mls @ 15 mls/hr IV .[id number] PRN PRN Reason: Additional IVPB Infusion Ceftriaxone Sodium (Rocephin) 1 gm in 50 mls @ 100 mls/hr IV Q24 [facility] Last Infusion: 01/12/20 09:52 Dose: Infused Documented by: Insulin Glargine (Lantus ([facility])) 10 units SC BREAKFAST [facility] Last Admin: 01/12/20 09:10 Dose: 10 units Documented by: Insulin Human Lispro (Humalog Kwikpen ([facility])) 0 unit SC ACHS [facility]; Protocol Last Admin: 01/12/20 11:34 Dose: Not Given Documented by: Lactobacillus Acidophilus (Acidophilus) 1 tablet PO DAILY [facility] Last Admin: 01/12/20 09:12 Dose: 1 tablet Documented by: Magnesium Hydroxide (Milk Of Magnesia) 30 ml PO DAILY PRN PRN PRN Reason: Constipation Melatonin (Melatonin) 3 mg PO QHS PRN PRN PRN Reason: INSOMNIA Metoprolol Tartrate (Lopressor (Beta Emilie)) 25 mg PO BID [facility] Last Admin: 01/12/20 09:13 Dose: 25 mg Documented by: Nitroglycerin (Nitrostat) 0.4 mg SUBLINGUAL Q5M PRN PRN Reason: CARDIAC/CHEST PAIN Oxycodone HCl (Oxyir) 5 mg PO Q4H PRN PRN PRN Reason: Pain Score 4-10/10 Last Admin: 01/12/20 00:58 Dose: 5 mg Documented by: Pantoprazole Sodium (Protonix) 40 mg PO DAILY [facility] Last Admin: 01/12/20 09:12 Dose: 40 mg Documented by: Promethazine HCl (Phenergan) 25 mg IM Q6H PRN PRN PRN Reason: Breakthrough Nausea/Vomiting Sodium Chloride () 10 - 40 ml IV UD PRN PRN Reason: SALINE FLUSH Last Admin: 01/11/20 11:07 Dose: 10 ml Documented by: STROKE Vital Signs/Narrative: Vital Signs Temp Pulse Resp BP Pulse Ox 01/12/20 09:35 98 01/12/20 09:25 98.4 F 74 16 112/59 L 98 01/12/20 09:13 74 112/59 L Medical Necessity - Tobacco Use Smoking Status: Former smoker Assessment/Plan All Active Problems Bilateral cellulitis of lower leg (Acute) Stasis dermatitis of both legs (Acute) Acute systolic (congestive) heart failure (Acute) Acute cholecystitis (Acute) Right upper quadrant abdominal pain (Acute) Abnormal electrocardiogram (Acute) Abnormal echocardiogram (Acute) 1. BL LE cellulitis complicated by chronic venous insufficiency - continue rocephin - cx's susceptible. Continue wound care with daily dressing changes and plan for wound care center follow up. 2. AUGUSTINE - Nephrology consulted. agreeable to renal bx today. no improvement in renal function, decent urine output the last 2 days. aspirin held, HCTZ and ARB held, metformin held. 3. Hyponatremia - Improving daily. HCTZ stopped. fluids restricted. likely hypervolemic. 4. chronic systolic CHF, cardiomyopathy - edematous however will not be able to tolerate lasix given worsening renal dz. No SOB. Echo with EF 50%. 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 5. DMt2 with morbid obesity - lantus + SSI. 6. HTN - stable now. DVT ppx: lovenox held for bx DC planning: PTOT evals. This patient was seen by Jey Osorio PA-C under the supervision of Doctor Tripp. <Iván Tripp - Last Filed: 01/12/20 13:29> Vitals/I&O's: Vital Signs Temp Pulse Resp BP Pulse Ox 36.9 C 74 16 112/59 L 98 01/12/20 09:25 01/12/20 09:25 01/12/20 09:25 01/12/20 09:25 01/12/20 09:35 Oxygen Delivery Method Room Air Weight: 127.3 kg Body Mass Index (BMI) 39.5 Finger Stick Blood Glucose 172 Intake and Output for Last 24 Hours 01/10/20 01/11/20 01/12/20 23:59 23:59 23:59 Intake Total 2358 / 2358 1396 / 1396 70 / 70 Output Total 1200 / 1200 850 / 850 150 / 150 Balance 1158 / 1158 546 / 546 -80 / -80 General: Alert, Cooperative HEENT: Atraumatic, Normocephalic Neck: Trachea Midline Lungs: Clear to auscultation, Normal air movement, No rhonchi, No wheeze Cardiovascular: Regular rate, Regular Rhythm, Normal S1, Normal S2, No murmurs Abdomen: Bowel Sounds Present, Soft, Non Tender Extremities: No Calf Tenderness, Edema Skin: No rashes, No breakdown Microbiology Past 72 Hours 01/08/20 17:35 Wound - Leg, Right Gram Stain - Final 01/08/20 17:35 Wound - Leg, Right Wound Culture - Preliminary Serratia marcescens Proteus mirabilis GNR lactose employment officer Corynebacterium striatum 01/08/20 17:35 Wound - Leg, Left Gram Stain - Final 01/08/20 17:35 Wound - Leg, Left Wound Culture - Preliminary Serratia marcescens Proteus mirabilis GNR lactose employment officer Corynebacterium striatum 01/08/20 15:21 Blood Culture (Wb) - Right Hand Blood Culture - Preliminary No growth in 48 hours. 01/08/20 15:15 Blood Culture (Wb) - Left Hand Blood Culture - Preliminary No growth in 48 hours. Laboratory Results 01/10/20 05:30: Total Protein (PEP) 5.7 L, Globulin 2.9, IgG 842, IgA 277, IgM 39, Immunofixation Screen Comment, Albumin (DAIVD) 2.8 L, Albumin/Globulin (DAVID) 1.0, Xltxv-5-Axlgpxwhe DAVID 0.4, Zmsvn-5-Ydsgmxqgq DAVID 0.9, Beta-Globulins (DAVID) 0.8, Gamma Globulins (DAVID) 0.8, DAVID M-Diego , DAVID Comments Comment 01/11/20 10:04: RPR NONREACTIVE 01/11/20 16:21: POC Glucose 165 H 01/11/20 20:48: POC Glucose 172 H 01/12/20 06:24: Sodium 130 L, Potassium 5.0, Chloride 94 L, Carbon Dioxide 25.0, Anion Gap 11, BUN 117 H*, Creatinine 4.12 H, Estim Creat Clear Calc 18.21, Est GFR (MDRD) Af Amer 19 L, Est GFR (MDRD) Non-Af 16 L, BUN/Creatinine Ratio 28.4 H, Glucose 147 H, Calcium 8.9 01/12/20 06:32: POC Glucose 149 H 01/12/20 11:30: POC Glucose 121 H Current Medications Acetaminophen (Tylenol) 650 mg PO Q6H PRN PRN PRN Reason: Pain Score 1-10/Temp > 100.7 F Last Admin: 01/12/20 00:58 Dose: 650 mg Documented by: Al Hydroxide/Mg Hydroxide (Mylanta Ii) 30 ml PO Q6H PRN PRN PRN Reason: Gastric Burning Albuterol Sulfate (Ventolin Aerosols) 2.5 mg INHALATION Q2H PRN PRN PRN Reason: SOB/Wheezing Amiodarone HCl (Cordarone) 200 mg PO BID [facility] Last Admin: 01/12/20 09:13 Dose: 200 mg Documented by: Enoxaparin Sodium (Lovenox) 30 mg SC DAILY@0600 [facility] Last Admin: 01/12/20 07:44 Dose: Not Given Documented by: Guaifenesin (Robitussin) 20 ml PO Q4H PRN PRN PRN Reason: COUGH Hydralazine HCl (Apresoline Iv) 10 mg IV Q4H PRN PRN PRN Reason: Hypertensive Emergency Sodium Chloride () 250 mls @ 15 mls/hr IV .[id number] PRN PRN Reason: Saline Flush Sodium Chloride () 250 mls @ 15 mls/hr IV .[id number] PRN PRN Reason: Additional IVPB Infusion Ceftriaxone Sodium (Rocephin) 1 gm in 50 mls @ 100 mls/hr IV Q24 [facility] Last Infusion: 01/12/20 09:52 Dose: Infused Documented by: Insulin Glargine (Lantus ([facility])) 10 units SC BREAKFAST [facility] Last Admin: 01/12/20 09:10 Dose: 10 units Documented by: Insulin Human Lispro (Humalog Kwikpen ([facility])) 0 unit SC ACHS [facility]; Protocol Last Admin: 01/12/20 11:34 Dose: Not Given Documented by: Lactobacillus Acidophilus (Acidophilus) 1 tablet PO DAILY [facility] Last Admin: 01/12/20 09:12 Dose: 1 tablet Documented by: Magnesium Hydroxide (Milk Of Magnesia) 30 ml PO DAILY PRN PRN PRN Reason: Constipation Melatonin (Melatonin) 3 mg PO QHS PRN PRN PRN Reason: INSOMNIA Metoprolol Tartrate (Lopressor (Beta Emilie)) 25 mg PO BID [facility] Last Admin: 01/12/20 09:13 Dose: 25 mg Documented by: Nitroglycerin (Nitrostat) 0.4 mg SUBLINGUAL Q5M PRN PRN Reason: CARDIAC/CHEST PAIN Oxycodone HCl (Oxyir) 5 mg PO Q4H PRN PRN PRN Reason: Pain Score 4-10/10 Last Admin: 01/12/20 00:58 Dose: 5 mg Documented by: Pantoprazole Sodium (Protonix) 40 mg PO DAILY [facility] Last Admin: 01/12/20 09:12 Dose: 40 mg Documented by: Promethazine HCl (Phenergan) 25 mg IM Q6H PRN PRN PRN Reason: Breakthrough Nausea/Vomiting Sodium Chloride () 10 - 40 ml IV UD PRN PRN Reason: SALINE FLUSH Last Admin: 01/11/20 11:07 Dose: 10 ml Documented by: STROKE Vital Signs/Narrative: Vital Signs Pulse Ox 01/12/20 09:35 98 Assessment/Plan Patient seen and examined independently. Data reviewed. I agree with the above note by the physician registered sales assistant. 1. Bilateral lower extremity venous stasis dermatitis.'s bilateral so making the likelihood of this being cellulitis very low. Wounds, however, are growing gram-negative rods as well as gram-positive organisms. This may be more contaminated than actual true infection. Continue with ampicillin/sulbactam for now. Echocardiogram performed showed an EF of 50%. No RV evaluation. Continue with Julio Cesar wraps and keeping legs elevated as much as possible. For the edema, would add IV furosemide for now. 2. AUGUSTINE: Nonoliguric worse again. Diuretics held. Nephrology on consult and tests ordered. Patient declined kidney biopsy. Now agrees to kidney biopsy 3. Hyponatremia: Ongoing, but improving. May be related with HCTZ plus minus dilution from hypervolemia: Monitor. Inpatient E&M: 68074 Subs Hosp L2
--- NOTE | 2020-01-12 15:47 | PCM.PN.REN ---
Patient Problems: Active and Suspected Problems Bilateral cellulitis of lower leg (Acute) Stasis dermatitis of both legs (Acute) Subjective: no new complaints - Physical Exam Vitals/I&O's: Vital Signs Temp Pulse Resp BP Pulse Ox 98.4 F 74 16 112/59 L 98 01/12/20 09:25 01/12/20 09:25 01/12/20 09:25 01/12/20 09:25 01/12/20 09:35 Oxygen Delivery Method Room Air Weight: 127.3 kg Body Mass Index (BMI) 39.5 Finger Stick Blood Glucose 172 Intake and Output for Last 24 Hours 01/10/20 01/11/20 01/12/20 23:59 23:59 23:59 Intake Total 2358 / 2358 1396 / 1396 70 / 70 Output Total 1200 / 1200 850 / 850 150 / 150 Balance 1158 / 1158 546 / 546 -80 / -80 General: Alert, Oriented x3, Cooperative HEENT: Atraumatic, PERRLA, EOMI, Normocephalic Neck: Supple, No JVD, Negative Carotid Bruits Lungs: Clear to auscultation, Normal air movement Cardiovascular: Regular rate, No murmurs Abdomen: Bowel Sounds Present, Soft, Non Tender Extremities: Capillary Refill Less than 3 Seconds, Edema Skin: No rashes, No breakdown Musculoskeletal: No Tenderness to Palpation of Joints or Extremities Neurological: Cranial nerves II-XII grossly intact Psych/Mental Status: Normal Affect, Appropriate Microbiology Past 72 Hours 01/08/20 17:35 Wound - Leg, Right Gram Stain - Final 01/08/20 17:35 Wound - Leg, Right Wound Culture - Preliminary Serratia marcescens Proteus mirabilis GNR lactose software educator Corynebacterium striatum 01/08/20 17:35 Wound - Leg, Left Gram Stain - Final 01/08/20 17:35 Wound - Leg, Left Wound Culture - Preliminary Serratia marcescens Proteus mirabilis GNR lactose software educator Corynebacterium striatum 01/08/20 15:21 Blood Culture (Wb) - Right Hand Blood Culture - Preliminary No growth in 48 hours. 01/08/20 15:15 Blood Culture (Wb) - Left Hand Blood Culture - Preliminary No growth in 48 hours. Laboratory Results 01/10/20 05:30: Total Protein (PEP) 5.7 L, Globulin 2.9, IgG 842, IgA 277, IgM 39, Immunofixation Screen Comment, Albumin (DAVID) 2.8 L, Albumin/Globulin (DAVID) 1.0, Lldeb-7-Jhngjuamu DAVID 0.4, Wthom-2-Qqovtqhdc DAVID 0.9, Beta-Globulins (DAVID) 0.8, Gamma Globulins (DAVID) 0.8, DAVID M-Diego , DAVID Comments Comment 01/11/20 10:04: RPR NONREACTIVE 01/11/20 16:21: POC Glucose 165 H 01/11/20 20:48: POC Glucose 172 H 01/12/20 06:24: Sodium 130 L, Potassium 5.0, Chloride 94 L, Carbon Dioxide 25.0, Anion Gap 11, BUN 117 H*, Creatinine 4.12 H, Estim Creat Clear Calc 18.21, Est GFR (MDRD) Af Amer 19 L, Est GFR (MDRD) Non-Af 16 L, BUN/Creatinine Ratio 28.4 H, Glucose 147 H, Calcium 8.9 01/12/20 06:32: POC Glucose 149 H 01/12/20 11:30: POC Glucose 121 H Current Medications Acetaminophen (Tylenol) 650 mg PO Q6H PRN PRN PRN Reason: Pain Score 1-10/Temp > 100.7 F Last Admin: 01/12/20 00:58 Dose: 650 mg Documented by: Al Hydroxide/Mg Hydroxide (Mylanta Ii) 30 ml PO Q6H PRN PRN PRN Reason: Gastric Burning Albuterol Sulfate (Ventolin Aerosols) 2.5 mg INHALATION Q2H PRN PRN PRN Reason: SOB/Wheezing Amiodarone HCl (Cordarone) 200 mg PO BID [facility] Last Admin: 01/12/20 09:13 Dose: 200 mg Documented by: Enoxaparin Sodium (Lovenox) 30 mg SC DAILY@0600 [facility] Last Admin: 01/12/20 07:44 Dose: Not Given Documented by: Guaifenesin (Robitussin) 20 ml PO Q4H PRN PRN PRN Reason: COUGH Hydralazine HCl (Apresoline Iv) 10 mg IV Q4H PRN PRN PRN Reason: Hypertensive Emergency Sodium Chloride () 250 mls @ 15 mls/hr IV .[id number] PRN PRN Reason: Saline Flush Sodium Chloride () 250 mls @ 15 mls/hr IV .[id number] PRN PRN Reason: Additional IVPB Infusion Ceftriaxone Sodium (Rocephin) 1 gm in 50 mls @ 100 mls/hr IV Q24 [facility] Last Infusion: 01/12/20 09:52 Dose: Infused Documented by: Insulin Glargine (Lantus ([facility])) 10 units SC BREAKFAST [facility] Last Admin: 01/12/20 09:10 Dose: 10 units Documented by: Insulin Human Lispro (Humalog Kwikpen ([facility])) 0 unit SC ACHS [facility]; Protocol Last Admin: 01/12/20 11:34 Dose: Not Given Documented by: Lactobacillus Acidophilus (Acidophilus) 1 tablet PO DAILY [facility] Last Admin: 01/12/20 09:12 Dose: 1 tablet Documented by: Magnesium Hydroxide (Milk Of Magnesia) 30 ml PO DAILY PRN PRN PRN Reason: Constipation Melatonin (Melatonin) 3 mg PO QHS PRN PRN PRN Reason: INSOMNIA Metoprolol Tartrate (Lopressor (Beta Emilie)) 25 mg PO BID [facility] Last Admin: 01/12/20 09:13 Dose: 25 mg Documented by: Nitroglycerin (Nitrostat) 0.4 mg SUBLINGUAL Q5M PRN PRN Reason: CARDIAC/CHEST PAIN Oxycodone HCl (Oxyir) 5 mg PO Q4H PRN PRN PRN Reason: Pain Score 4-10/10 Last Admin: 01/12/20 15:12 Dose: 5 mg Documented by: Pantoprazole Sodium (Protonix) 40 mg PO DAILY [facility] Last Admin: 01/12/20 09:12 Dose: 40 mg Documented by: Promethazine HCl (Phenergan) 25 mg IM Q6H PRN PRN PRN Reason: Breakthrough Nausea/Vomiting Sodium Chloride () 10 - 40 ml IV UD PRN PRN Reason: SALINE FLUSH Last Admin: 01/11/20 11:07 Dose: 10 ml Documented by: Medical Necessity - Tobacco Use Smoking Status: Former smoker Assessment/Plan All Active Problems Bilateral cellulitis of lower leg (Acute) Stasis dermatitis of both legs (Acute) Acute systolic (congestive) heart failure (Acute) Acute cholecystitis (Acute) Right upper quadrant abdominal pain (Acute) Abnormal electrocardiogram (Acute) Abnormal echocardiogram (Acute) AUGUSTINE. reviewed records from Dr Rodriges office. cr was 1.1 as of November. UA showed microscopic hematuria in the past as well. Real foul smelling discharge from lower extremity. Echo with decent EF. lungs are clear. as per outpatient records he tried lasix, metolazone and HCTZ. ? rash from HCTZ. apparently all of this did not help. not sure if the edema is fluid retention or local factors at this point SPEP negative US reviewed. size is good ? IgA nephropathy with HSP dw patient he is willing to consider a kidney biopsy now. this is scheduled for tomorrow will try a dose of IV lasix BUN and cr are pretty high. may have to do dialysis for a while. [facility] hospitalist service
[2020-01-12 16:16] LABS: Bedside Glucose 187 mg/dL (70-110)
[2020-01-12] MEDS: Insulin Lispro 100 UNIT/ML INSULN.PEN SC ×2 (16:57→21:06)
[2020-01-12] MEDS: 0.9% Saline Lock 10 ML Syringe IV (17:22)
[2020-01-12] MEDS: Furosemide 40 MG/4 ML Vial IV (17:22)
[2020-01-12 21:31] LABS: Bedside Glucose 229 mg/dL (70-110)
[2020-01-13] VITALS (20 sets, daily range): BP systolic 96–147; BP diastolic 51–84; PULSE 78–94; RESP 12–18; TEMP 36.5–37.2; O2SAT 94–100; BMI 39.2
--- NOTE | 2020-01-13 | KID_PTH ---
PATIENT: FADUMO EASLEY LOC: [facility] U#:[id number] AGE/SX: 64/M ROOM: [facility] RE01/08/[address]: Dr. Iván Tripp DO : 1955 BED: 1 DIS: 01/16/2020 SPEC #: [id number] RECD: 01/13/20 10:28 STATUS: GENNY REQ #: [id number] JEFF: 01/13/20 00:[address]: Mark Contreras DEPT: SURGICAL PATHOLOGY RECD BY: Imtiaz Garcia ENTERED: 01/13/20 10:28 SP TYPE: KIDNEY OTHR DR: MD Dr. Iván Martines DO Dr. Jayaprakas Dasari, MD Dr. Mark Elderbrock, MD Tissues: Kidney, NOS Procedures: Electron Microscopy (ACH) Fluorescent Antibody (ACH) Sp St Grp II Kidney (ACH) Kidney Biopsy (ACH) Fluorescent antibody (ACH) add'l Comments: @ Ordering doctor for JAMES edited from to @ by SARABJIT at 01/13/20 110 @ Submitting doctor edited from to @ by SARABJIT at 01/13/20 1108 HEADER OPERATION: CT-guided kidney biopsy PRE-OP DIAGNOSIS: Decreased kidney function TISSUE SUBMITTED: Kidney MICROSCOPIC DIAGNOSIS Renal biopsy demonstrating mild arteriosclerosis, mild glomerulosclerosis and mild chronic tubulointerstitial changes. MICROSCOPIC DESCRIPTION Sections are evaluated with H & E, PAS, Elmore, trichrome and Congo red stains. 31 glomeruli are present, 6 glomeruli are sclerotic. Preserved glomeruli demonstrate mild mesangial expansion with focal increases in mesangial cellularity. Capillary loops are delicate. No active glomerulitis or segmental lesions are identified. There is mild (approximately 10 to 15%) interstitial fibrosis. There is a minimal mononuclear interstitial inflammatory infiltrate. Arterials are mild to moderately thickened. No arteritis is identified. A Congo red stain is negative. IMMUNOFLUORESCENCE: Four glomeruli are present. There is no specific glomerular staining to indicate the deposition of immunoglobulins (IgG, IgA or IgM) or complement components (C3 or C1q). Stains for light chains kappa and lambda show no evidence of deposition in glomerular or tubular basement membranes. Glomerular fibrin deposition is not increased. Albumin demonstrates background staining. ELECTRON MICROSCOPY: Toluidine blue semithin section demonstrate three glomeruli for evaluation. Ultrastructural examination demonstrates foci of mild mesangial expansions with granular matrix. No discrete electron dense deposits are identified. Glomerular capillary loops are of normal thickness with no discrete electron dense deposits identified. Overlying epithelial cell foot processes are generally preserved with few areas of effacement. Tubular basement membranes are of normal thickness with no discrete electron dense deposits identified. GROSS DESCRIPTION The specimen is sent entirely to [facility] for diagnosis. Received in renal transport medium labeled with the patient's name and kidney biopsy, the specimen consists of four mccracken to mccracken-yellow core biopsy specimens of renal parenchyma which are, in range, from 1.5 x 0.1 x 0.01 to 2 x 0.1 x 0.1 cm. Orchid Worker section is submitted for immunofluorescent microscopy studies. Orchid Worker section is submitted for electron microscopy evaluation. Remainder of the specimen is entirely submitted for permanent section as A1.
[2020-01-13 02:09] LABS: ANTINUCLEAR ANTIBODIES DIRECT Negative (Negative)
[2020-01-13 05:03] LABS: Hematocrit 26.7 % (40-54); Hemoglobin 8.8 g/dL (13.0-16.5); Mean Corpuscular Hgb 29.1 pg (27.0-32.0); Mean Corpuscular Volume 88.4 fL (80-94); Mean Platelet Vol. 9.4 fl (6.2-12.0); Platelet Count 265 K/mm3 (150-450); RBC Distribution Width CV 13.1 % (11.6-14.6); RBC Distribution Width SD 42.6 fl (35.1-43.9); Red Blood Count 3.02 M/mm3 (4.6-6.2); White Blood Count 5.8 K/mm3 (4.4-11.0)
[2020-01-13 05:11] LABS: International Normalized Ratio 1.1; Prothrombin Time (Protime)PT. 13.4 SECONDS (11.7-14.9)
[2020-01-13 05:12] LABS: Partial Thromboplast Time 29.1 Seconds (24.1-36.2)
[2020-01-13 07:05] LABS: Bedside Glucose 151 mg/dL (70-110)
[2020-01-13 09:03] LABS: Anion Gap 11 (5-15); BUN 110 mg/dL (7-18); BUN/Creat Ratio 36.3 RATIO (10-20); Calcium,Total 9.1 mg/dL (8.5-10.1); Chloride 96 mmol/L (98-107); Creatinine, Serum 3.03 mg/dL (0.70-1.30); EST Glomerular Filtration Rate 22 mL/min (>60); Est Glom Filt Rate - Afr Amer 27 mL/min (>60); Estimated Creatinine Clearance 24.76 ml/min; Glucose 160 mg/dL (74-106); Potassium 4.9 mmol/L (3.5-5.1); Sodium Level 131 mmol/L (136-145)
[2020-01-13] MEDS: Midazolam 2 MG/2 ML Syringe IV (09:25)
[2020-01-13] MEDS: fentaNYL 100 MCG/2 ML Ampul IV (09:27)
--- NOTE | 2020-01-13 10:00 | CT_ITS ---
PROCEDURE: CT GUIDED PERCUTANEOUS KIDNEY BIOPSY. DATE: 01/13/2020. INDICATION: Male, 64 years old. Acute renal failure PHYSICIAN: Baljeet Antoine M.D. MEDICATIONS: 2 mg of VERSED and 50 mcg of FENTANYL intravenously. Conscious sedation was performed. Conscious sedation was started at 9:25 AM and terminated at 9:33 AM. The patient was independently monitored by the department nurse. ACCESS SITE: Lower pole of right kidney NEEDLE: 18-gauge core biopsy needle SPECIMEN: 4 18-gauge cores EBL: None. COMPLICATIONS: None immediate. RADIATION DOSAGE (If Supplied By Facility): CTDIvol = ( 15.2 ) mGy, DLP = ( 214.82 ) mGycm. Individualized dose optimization technique was utilized. The risks, benefits, and alternatives to the procedure and sedation were explained to the patient. The specific risk of hemorrhage requiring further treatment or intervention was detailed and accepted. Written informed consent was obtained. The patient was placed on the CT table in the prone position. Multiple axial images were obtained from the lung base through the caudal extent of the kidneys. An appropriate entry site was identified and a jossue made on the skin. The skin overlying the [right ] posterior flank was prepped and draped in sterile fashion. 1% lidocaine was administered subcutaneously for local anesthesia. Initially, a 22 gauge needle was advanced and CT images confirmed good needle position. The 22 gauge needle was then exchanged for an 17 gauge introducer needle which was advanced. Repeat CT images confirmed good needle trajectory and tip position. The introducer needle was then advanced into the periphery of the inferior renal pole, and CT images were again obtained to confirm exact tip location. The inner stylet of the introducer needle was then removed and an 18 gauge coaxial needle was advanced thru the introducer needle and biopsy performed. A total of [ 4] passes were performed and the specimen collected was sent to Pathology for further evaluation. The needle was withdrawn. Hemostasis was achieved with manual compression and a sterile dressing was applied. Repeat CT images of the biopsy area was performed which demonstrated no gross bleeding or hematoma. The patient tolerated the procedure well without immediate complications. The patient was transported to the [floor/recovery area] in stable condition. CT/Biopsy/Inj or Needle Placement IMPRESSION: Successful CT guided percutaneous kidney biopsy. Electronically Signed: Baljeet Antoine, at 10:30 EDT , Service support ,
--- NOTE | 2020-01-13 11:02 | PCM.PN.REN ---
Patient Problems: Active and Suspected Problems Bilateral cellulitis of lower leg (Acute) Stasis dermatitis of both legs (Acute) Subjective: no new events s/p biopsy - Physical Exam Vitals/I&O's: Vital Signs Temp Pulse Resp BP Pulse Ox 98.9 F 88 13 126/84 H 94 01/13/20 10:42 01/13/20 10:42 01/13/20 10:42 01/13/20 10:42 01/13/20 10:42 Oxygen Flow Rate (L/min) 2 Oxygen Delivery Method [3] Room Air Oxygen Delivery Method [2] Room Air Oxygen Delivery Method [1 ( Room Air Initial Baseline)] Oxygen Delivery Method Room Air Weight: 124.2 kg Body Mass Index (BMI) 39.2 Finger Stick Blood Glucose 172 Intake and Output for Last 24 Hours 01/11/20 01/12/20 01/13/20 23:59 23:59 23:59 Intake Total 1396 / 1396 967 / 967 Output Total 850 / 850 1125 / 1125 320 / 320 Balance 546 / 546 -158 / -158 -301 / -301 General: Alert, Oriented x3, Cooperative HEENT: Atraumatic, PERRLA, EOMI, Normocephalic Neck: Supple, No JVD, Negative Carotid Bruits Lungs: Clear to auscultation, Normal air movement Cardiovascular: Regular rate, No murmurs Abdomen: Bowel Sounds Present, Soft, Non Tender Extremities: Capillary Refill Less than 3 Seconds, Edema Skin: No rashes, No breakdown Musculoskeletal: No Tenderness to Palpation of Joints or Extremities Neurological: Cranial nerves II-XII grossly intact Psych/Mental Status: Normal Affect, Appropriate Microbiology Past 72 Hours 01/08/20 17:35 Wound - Leg, Right Gram Stain - Final 01/08/20 17:35 Wound - Leg, Right Wound Culture - Final Serratia marcescens Proteus mirabilis Klebsiella oxytoca Corynebacterium striatum 01/08/20 17:35 Wound - Leg, Left Gram Stain - Final 01/08/20 17:35 Wound - Leg, Left Wound Culture - Final Serratia marcescens Proteus mirabilis Klebsiella oxytoca Corynebacterium striatum 01/08/20 15:21 Blood Culture (Wb) - Right Hand Blood Culture - Preliminary No growth in 48 hours. 01/08/20 15:15 Blood Culture (Wb) - Left Hand Blood Culture - Preliminary No growth in 48 hours. Laboratory Results 01/11/20 10:04: KAYLEE Screen Negative 01/12/20 11:30: POC Glucose 121 H 01/12/20 16:11: POC Glucose 187 H 01/12/20 21:02: POC Glucose 229 H 01/13/20 04:42: WBC 5.8, RBC 3.02 L, Hgb 8.8 L, Hct 26.7 L, MCV 88.4, MCH 29.1, MCHC 33.0, RDW Std Deviation 42.6, RDW Coeff of Tahmina 13.1, Plt Count 265, MPV 9.4 01/13/20 04:42: PT 13.4, INR 1.1, APTT 29.1 01/13/20 04:42: Sodium 131 L, Potassium 4.9, Chloride 96 L, Carbon Dioxide 24.0, Anion Gap 11, BUN 110 H*, Creatinine 3.03 H, Estim Creat Clear Calc 24.76, Est GFR (MDRD) Af Amer 27 L, Est GFR (MDRD) Non-Af 22 L, BUN/Creatinine Ratio 36.3 H, Glucose 160 H, Calcium 9.1 01/13/20 06:57: POC Glucose 151 H Current Medications Acetaminophen (Tylenol) 650 mg PO Q6H PRN PRN PRN Reason: Pain Score 1-10/Temp > 100.7 F Last Admin: 01/12/20 21:07 Dose: 650 mg Documented by: Al Hydroxide/Mg Hydroxide (Mylanta Ii) 30 ml PO Q6H PRN PRN PRN Reason: Gastric Burning Albuterol Sulfate (Ventolin Aerosols) 2.5 mg INHALATION Q2H PRN PRN PRN Reason: SOB/Wheezing Amiodarone HCl (Cordarone) 200 mg PO BID [facility] Last Admin: 01/12/20 21:06 Dose: 200 mg Documented by: Enoxaparin Sodium (Lovenox) 30 mg SC DAILY@0600 [facility] Last Admin: 01/12/20 23:17 Dose: Not Given Documented by: Guaifenesin (Robitussin) 20 ml PO Q4H PRN PRN PRN Reason: COUGH Hydralazine HCl (Apresoline Iv) 10 mg IV Q4H PRN PRN PRN Reason: Hypertensive Emergency Sodium Chloride () 250 mls @ 15 mls/hr IV .[id number] PRN PRN Reason: Saline Flush Sodium Chloride () 250 mls @ 15 mls/hr IV .[id number] PRN PRN Reason: Additional IVPB Infusion Ceftriaxone Sodium (Rocephin) 1 gm in 50 mls @ 100 mls/hr IV Q24 [facility] Last Infusion: 01/12/20 09:52 Dose: Infused Documented by: Sodium Chloride () 500 mls @ 0 mls/hr IV .Q0M [facility] Stop: 01/13/20 23:59 Last Infusion: 01/13/20 10:04 Dose: Infused Documented by: Insulin Glargine (Lantus ([facility])) 10 units SC BREAKFAST [facility] Last Admin: 01/12/20 09:10 Dose: 10 units Documented by: Insulin Human Lispro (Humalog Kwikpen ([facility])) 0 unit SC ACHS [facility]; Protocol Last Admin: 01/12/20 23:18 Dose: Not Given Documented by: Lactobacillus Acidophilus (Acidophilus) 1 tablet PO DAILY [facility] Last Admin: 01/12/20 09:12 Dose: 1 tablet Documented by: Magnesium Hydroxide (Milk Of Magnesia) 30 ml PO DAILY PRN PRN PRN Reason: Constipation Melatonin (Melatonin) 3 mg PO QHS PRN PRN PRN Reason: INSOMNIA Metoprolol Tartrate (Lopressor (Beta Emilie)) 25 mg PO BID [facility] Last Admin: 01/12/20 21:07 Dose: 25 mg Documented by: Nitroglycerin (Nitrostat) 0.4 mg SUBLINGUAL Q5M PRN PRN Reason: CARDIAC/CHEST PAIN Oxycodone HCl (Oxyir) 5 mg PO Q4H PRN PRN PRN Reason: Pain Score 4-10/10 Last Admin: 01/12/20 21:07 Dose: 5 mg Documented by: Pantoprazole Sodium (Protonix) 40 mg PO DAILY [facility] Last Admin: 01/12/20 09:12 Dose: 40 mg Documented by: Promethazine HCl (Phenergan) 25 mg IM Q6H PRN PRN PRN Reason: Breakthrough Nausea/Vomiting Sodium Chloride () 10 - 40 ml IV UD PRN PRN Reason: SALINE FLUSH Last Admin: 01/12/20 17:22 Dose: 10 ml Documented by: Medical Necessity - Tobacco Use Smoking Status: Former smoker Assessment/Plan All Active Problems Bilateral cellulitis of lower leg (Acute) Stasis dermatitis of both legs (Acute) Acute systolic (congestive) heart failure (Acute) Acute cholecystitis (Acute) Right upper quadrant abdominal pain (Acute) Abnormal electrocardiogram (Acute) Abnormal echocardiogram (Acute) AUGUSTINE. reviewed records from Dr Rodriges office. cr was 1.1 as of November. UA showed microscopic hematuria in the past as well. Real foul smelling discharge from lower extremity. Echo with decent EF. lungs are clear. as per outpatient records he tried lasix, metolazone and HCTZ. ? rash from HCTZ/ patient says its from tramadol. apparently all of this did not help. not sure if the edema is fluid retention or local factors at this point SPEP negative US reviewed. size is good ? IgA nephropathy with HSP dw patient s/p biopsy results wont be back till next week reviewed wound images. look better than admission status cr is better today increase lasix to TID for now ? BUN etiology still has a faint rash on body which he says is better than before urine output is better dw hospitalist service
[2020-01-13 12:08] LABS: Complement C3 145 mg/dL (82-167); Cytoplasmic Ab (C-ANCA) <1:20 titer (Neg:<1:20)
[2020-01-13 12:16] LABS: Bedside Glucose 179 mg/dL (70-110)
--- NOTE | 2020-01-13 12:17 | PN_ITS ---
<Jey Osorio PA - Last Filed: 01/13/20 12:17> Patient Problems: Active and Suspected Problems Bilateral cellulitis of lower leg (Acute) Stasis dermatitis of both legs (Acute) Reason for Visit: AUGUSTINE, cellulitis Subjective: Pt reports good urinary output, c/w documented nursing output. No fever/chills. Ongoing LE pain especially with leg elevation. Pt tolerated the renal biopsy well this AM with minimal pain. No SOB. LE edema is improved. Vitals/I&O's: Vital Signs Temp Pulse Resp BP Pulse Ox 98.9 F 88 13 126/84 H 94 01/13/20 10:42 01/13/20 10:42 01/13/20 10:42 01/13/20 10:42 01/13/20 10:42 Oxygen Flow Rate (L/min) 2 Oxygen Delivery Method [3] Room Air Oxygen Delivery Method [2] Room Air Oxygen Delivery Method [1 ( Room Air Initial Baseline)] Oxygen Delivery Method Room Air Weight: 273 lb 13.026 oz Body Mass Index (BMI) 39.2 Finger Stick Blood Glucose 172 Intake and Output for Last 24 Hours 01/11/20 01/12/20 01/13/20 23:59 23:59 23:59 Intake Total 1396 / 1396 967 / 967 Output Total 850 / 850 1125 / 1125 320 / 320 Balance 546 / 546 -158 / -158 -301 / -301 General: Alert, Oriented x3, Cooperative HEENT: Atraumatic, PERRLA, EOMI, Normocephalic Neck: Supple, No JVD, Negative Carotid Bruits Lungs: Clear to auscultation, Normal air movement Cardiovascular: Regular rate, No murmurs Abdomen: Bowel Sounds Present, Soft, Non Tender Extremities: Capillary Refill Less than 3 Seconds, Edema - mild improvement vs yesterday. ongoing pitting edema BLE R>L Skin: No rashes, No breakdown Musculoskeletal: No Tenderness to Palpation of Joints or Extremities Neurological: Cranial nerves II-XII grossly intact Psych/Mental Status: Normal Affect, Appropriate, Alert and oriented to time, place, person, mood and affect Microbiology Past 72 Hours 01/08/20 17:35 Wound - Leg, Right Gram Stain - Final 01/08/20 17:35 Wound - Leg, Right Wound Culture - Final Serratia marcescens Proteus mirabilis Klebsiella oxytoca Corynebacterium striatum 01/08/20 17:35 Wound - Leg, Left Gram Stain - Final 01/08/20 17:35 Wound - Leg, Left Wound Culture - Final Serratia marcescens Proteus mirabilis Klebsiella oxytoca Corynebacterium striatum 01/08/20 15:21 Blood Culture (Wb) - Right Hand Blood Culture - Preliminary No growth in 48 hours. 01/08/20 15:15 Blood Culture (Wb) - Left Hand Blood Culture - Preliminary No growth in 48 hours. Laboratory Results 01/11/20 10:04: KAYLEE Screen Negative 01/12/20 16:11: POC Glucose 187 H 01/12/20 21:02: POC Glucose 229 H 01/13/20 04:42: WBC 5.8, RBC 3.02 L, Hgb 8.8 L, Hct 26.7 L, MCV 88.4, MCH 29.1, MCHC 33.0, RDW Std Deviation 42.6, RDW Coeff of Tahmina 13.1, Plt Count 265, MPV 9.4 01/13/20 04:42: PT 13.4, INR 1.1, APTT 29.1 01/13/20 04:42: Sodium 131 L, Potassium 4.9, Chloride 96 L, Carbon Dioxide 24.0, Anion Gap 11, BUN 110 H*, Creatinine 3.03 H, Estim Creat Clear Calc 24.76, Est GFR (MDRD) Af Amer 27 L, Est GFR (MDRD) Non-Af 22 L, BUN/Creatinine Ratio 36.3 H , Glucose 160 H, Calcium 9.1 01/13/20 06:57: POC Glucose 151 H 01/13/20 12:09: POC Glucose 179 H Current Medications Acetaminophen (Tylenol) 650 mg PO Q6H PRN PRN PRN Reason: Pain Score 1-10/Temp > 100.7 F Last Admin: 01/12/20 21:07 Dose: 650 mg Documented by: Al Hydroxide/Mg Hydroxide (Mylanta Ii) 30 ml PO Q6H PRN PRN PRN Reason: Gastric Burning Albuterol Sulfate (Ventolin Aerosols) 2.5 mg INHALATION Q2H PRN PRN PRN Reason: SOB/Wheezing Amiodarone HCl (Cordarone) 200 mg PO BID [facility] Last Admin: 01/12/20 21:06 Dose: 200 mg Documented by: Enoxaparin Sodium (Lovenox) 30 mg SC DAILY@0600 [facility] Last Admin: 01/12/20 23:17 Dose: Not Given Documented by: Furosemide (Lasix) 40 mg IV Q8 [facility] Guaifenesin (Robitussin) 20 ml PO Q4H PRN PRN PRN Reason: COUGH Hydralazine HCl (Apresoline Iv) 10 mg IV Q4H PRN PRN PRN Reason: Hypertensive Emergency Sodium Chloride () 250 mls @ 15 mls/hr IV .[id number] PRN PRN Reason: Saline Flush Sodium Chloride () 250 mls @ 15 mls/hr IV .[id number] PRN PRN Reason: Additional IVPB Infusion Ceftriaxone Sodium (Rocephin) 1 gm in 50 mls @ 100 mls/hr IV Q24 [facility] Last Infusion: 01/12/20 09:52 Dose: Infused Documented by: Sodium Chloride () 500 mls @ 0 mls/hr IV .Q0M [facility] Stop: 01/13/20 23:59 Last Infusion: 01/13/20 10:04 Dose: Infused Documented by: Insulin Glargine (Lantus (Bk)) 10 units SC BREAKFAST [facility] Last Admin: 01/12/20 09:10 Dose: 10 units Documented by: Insulin Human Lispro (Humalog Kwikpen ([facility]k)) 0 unit SC ACHS [facility]; Protocol Last Admin: 01/12/20 23:18 Dose: Not Given Documented by: Lactobacillus Acidophilus (Acidophilus) 1 tablet PO DAILY [facility] Last Admin: 01/12/20 09:12 Dose: 1 tablet Documented by: Magnesium Hydroxide (Milk Of Magnesia) 30 ml PO DAILY PRN PRN PRN Reason: Constipation Melatonin (Melatonin) 3 mg PO QHS PRN PRN PRN Reason: INSOMNIA Metoprolol Tartrate (Lopressor (Beta Emilie)) 25 mg PO BID [facility] Last Admin: 01/12/20 21:07 Dose: 25 mg Documented by: Nitroglycerin (Nitrostat) 0.4 mg SUBLINGUAL Q5M PRN PRN Reason: CARDIAC/CHEST PAIN Oxycodone HCl (Oxyir) 5 mg PO Q4H PRN PRN PRN Reason: Pain Score 4-10/10 Last Admin: 01/12/20 21:07 Dose: 5 mg Documented by: Pantoprazole Sodium (Protonix) 40 mg PO DAILY [facility] Last Admin: 01/12/20 09:12 Dose: 40 mg Documented by: Promethazine HCl (Phenergan) 25 mg IM Q6H PRN PRN PRN Reason: Breakthrough Nausea/Vomiting Sodium Chloride () 10 - 40 ml IV UD PRN PRN Reason: SALINE FLUSH Last Admin: 01/12/20 17:22 Dose: 10 ml Documented by: STROKE Vital Signs/Narrative: Vital Signs Temp Pulse Pulse Pulse Pulse Resp Resp 01/13/20 10:42 98.9 F 88 13 01/13/20 10:23 98.1 F 86 14 01/13/20 10:05 88 15 01/13/20 09:50 90 14 01/13/20 09:45 92 13 01/13/20 09:40 92 12 01/13/20 09:35 87 13 01/13/20 09:25 91 90 88 13 01/13/20 09:05 80 18 01/13/20 08:38 97.7 F L 82 14 Resp Resp BP BP BP BP Pulse Ox 01/13/20 10:42 126/84 H 94 01/13/20 10:23 112/68 97 01/13/20 10:05 96/61 94 01/13/20 09:50 124/62 H 98 01/13/20 09:45 116/59 L 98 01/13/20 09:40 128/60 H 98 01/13/20 09:35 115/58 L 100 01/13/20 09:25 16 15 141/61 H 131/60 H 125/71 H 01/13/20 09:05 147/51 H 99 01/13/20 08:38 117/68 Medical Necessity - Tobacco Use Smoking Status: Former smoker Assessment/Plan All Active Problems Bilateral cellulitis of lower leg (Acute) Stasis dermatitis of both legs (Acute) Acute systolic (congestive) heart failure (Acute) Acute cholecystitis (Acute) Right upper quadrant abdominal pain (Acute) Abnormal electrocardiogram (Acute) Abnormal echocardiogram (Acute) 1. BL LE cellulitis complicated by chronic venous insufficiency - continue rocephin - cx's susceptible. Continue wound care with daily dressing changes and plan for wound care center follow up. Micro shows Serratia macescens, Proteus mirabilis, Klebsiella oxytoca, Corynebacterium striatum. 2. AUGUSTINE - Nephrology consulted. Good output and improvement in renal function with the addition of lasix last night. Biopsy is pending. aspirin held, HCTZ and ARB held, metformin held. Rheumatoid panel is pending. KAYLEE is negative. 3. Hyponatremia - Improving daily. HCTZ stopped. fluids restricted. likely hypervolemic. 4. chronic systolic CHF, cardiomyopathy - edema improved with lasix. No SOB. Echo with EF 50%. 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 5. DMt2 with morbid obesity - lantus + SSI. 6. HTN - stable now. 7. Normocytic anemia - 10.2-->8.8. Baseline unclear. check iron/tibc. trend. plt normal. DVT ppx: lovenox held for bx DC planning: PTOT evals. Monitor renal function closely with lasix for further improvement prior to DC. reportedly recent Cr was<1.0 This patient was seen by Jey Osorio PA-C under the supervision of Doctor Qasim. <Iván Tripp - Last Filed: 01/13/20 14:16> Subjective: legs feeling slightly better. Vitals/I&O's: Vital Signs Temp Pulse Resp BP Pulse Ox 37.2 C 88 13 126/84 H 94 01/13/20 10:42 01/13/20 12:49 01/13/20 10:42 01/13/20 12:49 01/13/20 10:42 Oxygen Flow Rate (L/min) 2 Oxygen Delivery Method [3] Room Air Oxygen Delivery Method [2] Room Air Oxygen Delivery Method [1 ( Room Air Initial Baseline)] Oxygen Delivery Method Room Air Weight: 124.2 kg Body Mass Index (BMI) 39.2 Finger Stick Blood Glucose 172 Intake and Output for Last 24 Hours 01/11/20 01/12/20 01/13/20 23:59 23:59 23:59 Intake Total 1396 / 1396 967 / 967 259 / 259 Output Total 850 / 850 1125 / 1125 1320 / 1320 Balance 546 / 546 -158 / -158 -1061 / -1061 General: Alert, Cooperative HEENT: Atraumatic, Normocephalic Neck: No Nodes Lungs: Clear to auscultation, Normal air movement, No rhonchi, No wheeze Cardiovascular: Regular rate, Regular Rhythm, Normal S1, Normal S2, No murmurs Abdomen: Bowel Sounds Present, Soft, Non Tender Extremities: Capillary Refill Less than 3 Seconds, Edema Skin: No rashes, No breakdown Musculoskeletal: No Tenderness to Palpation of Joints or Extremities Microbiology Past 72 Hours 01/08/20 17:35 Wound - Leg, Right Gram Stain - Final 01/08/20 17:35 Wound - Leg, Right Wound Culture - Final Serratia marcescens Proteus mirabilis Klebsiella oxytoca Corynebacterium striatum 01/08/20 17:35 Wound - Leg, Left Gram Stain - Final 01/08/20 17:35 Wound - Leg, Left Wound Culture - Final Serratia marcescens Proteus mirabilis Klebsiella oxytoca Corynebacterium striatum 01/08/20 15:21 Blood Culture (Wb) - Right Hand Blood Culture - Preliminary No growth in 48 hours. 01/08/20 15:15 Blood Culture (Wb) - Left Hand Blood Culture - Preliminary No growth in 48 hours. Laboratory Results 01/11/20 10:04: KAYLEE Screen Negative 01/11/20 10:04: c-ANCA Antibody <1:20, Atypical p-ANCA <1:20, p-ANCA Antibody <1:20, Glomerular Base Memb Ab 7, Complement C3 145, Complement C4 28 01/12/20 16:11: POC Glucose 187 H 01/12/20 21:02: POC Glucose 229 H 01/13/20 04:42: WBC 5.8, RBC 3.02 L, Hgb 8.8 L, Hct 26.7 L, MCV 88.4, MCH 29.1, MCHC 33.0, RDW Std Deviation 42.6, RDW Coeff of Tahmina 13.1, Plt Count 265, MPV 9.4 01/13/20 04:42: PT 13.4, INR 1.1, APTT 29.1 01/13/20 04:42: Sodium 131 L, Potassium 4.9, Chloride 96 L, Carbon Dioxide 24.0, Anion Gap 11, BUN 110 H*, Creatinine 3.03 H, Estim Creat Clear Calc 24.76, Est GFR (MDRD) Af Amer 27 L, Est GFR (MDRD) Non-Af 22 L, BUN/Creatinine Ratio 36.3 H , Glucose 160 H, Calcium 9.1 01/13/20 04:42: Iron 52 L, TIBC 239 L, Iron Saturation 21.8 01/13/20 06:57: POC Glucose 151 H 01/13/20 12:09: POC Glucose 179 H Current Medications Acetaminophen (Tylenol) 650 mg PO Q6H PRN PRN PRN Reason: Pain Score 1-10/Temp > 100.7 F Last Admin: 01/12/20 21:07 Dose: 650 mg Documented by: Al Hydroxide/Mg Hydroxide (Mylanta Ii) 30 ml PO Q6H PRN PRN PRN Reason: Gastric Burning Albuterol Sulfate (Ventolin Aerosols) 2.5 mg INHALATION Q2H PRN PRN PRN Reason: SOB/Wheezing Amiodarone HCl (Cordarone) 200 mg PO BID [facility] Last Admin: 01/13/20 12:48 Dose: 200 mg Documented by: Enoxaparin Sodium (Lovenox) 30 mg SC DAILY@0600 [facility] Last Admin: 01/12/20 23:17 Dose: Not Given Documented by: Furosemide (Lasix) 40 mg IV Q8 [facility] Guaifenesin (Robitussin) 20 ml PO Q4H PRN PRN PRN Reason: COUGH Hydralazine HCl (Apresoline Iv) 10 mg IV Q4H PRN PRN PRN Reason: Hypertensive Emergency Sodium Chloride () 250 mls @ 15 mls/hr IV .[id number] PRN PRN Reason: Saline Flush Sodium Chloride () 250 mls @ 15 mls/hr IV .[id number] PRN PRN Reason: Additional IVPB Infusion Ceftriaxone Sodium (Rocephin) 1 gm in 50 mls @ 100 mls/hr IV Q24 [facility] Last Admin: 01/13/20 12:45 Dose: 100 mls/hr Documented by: Sodium Chloride () 500 mls @ 0 mls/hr IV .Q0M [facility] Stop: 01/13/20 23:59 Last Infusion: 01/13/20 10:04 Dose: Infused Documented by: Insulin Glargine (Lantus ([facility])) 10 units SC BREAKFAST [facility] Last Admin: 01/13/20 12:50 Dose: 10 units Documented by: Insulin Human Lispro (Humalog Kwikpen ([facility])) 0 unit SC ACHS [facility]; Protocol Last Admin: 01/13/20 12:29 Dose: 2 units Documented by: Lactobacillus Acidophilus (Acidophilus) 1 tablet PO DAILY [facility] Last Admin: 01/13/20 12:48 Dose: 1 tablet Documented by: Magnesium Hydroxide (Milk Of Magnesia) 30 ml PO DAILY PRN PRN PRN Reason: Constipation Melatonin (Melatonin) 3 mg PO QHS PRN PRN PRN Reason: INSOMNIA Metoprolol Tartrate (Lopressor (Beta Emilie)) 25 mg PO BID [facility] Last Admin: 01/13/20 12:49 Dose: 25 mg Documented by: Nitroglycerin (Nitrostat) 0.4 mg SUBLINGUAL Q5M PRN PRN Reason: CARDIAC/CHEST PAIN Oxycodone HCl (Oxyir) 5 mg PO Q4H PRN PRN PRN Reason: Pain Score 4-10/10 Last Admin: 01/13/20 13:13 Dose: 5 mg Documented by: Pantoprazole Sodium (Protonix) 40 mg PO DAILY [facility] Last Admin: 01/13/20 12:49 Dose: 40 mg Documented by: Promethazine HCl (Phenergan) 25 mg IM Q6H PRN PRN PRN Reason: Breakthrough Nausea/Vomiting Sodium Chloride () 10 - 40 ml IV UD PRN PRN Reason: SALINE FLUSH Last Admin: 01/12/20 17:22 Dose: 10 ml Documented by: STROKE Vital Signs/Narrative: Vital Signs Temp Pulse Resp BP Pulse Ox 01/13/20 12:49 88 126/84 H 01/13/20 10:42 37.2 C 88 13 126/84 H 94 01/13/20 10:23 36.7 C 86 14 112/68 97 Assessment/Plan Patient seen and examined independently. Data reviewed. I agree with the above note by the physician school office assistant. 1. Bilateral lower extremity venous stasis dermatitis.'s bilateral so making the likelihood of this being cellulitis very low. Wounds, however, are growing gram-negative rods as well as gram-positive organisms. This may be more contaminated than actual true infection. Continue with ampicillin/sulbactam for now. Echocardiogram performed showed an EF of 50%. No RV evaluation. Continue with Julio Cesar wraps and keeping legs elevated as much as possible. For the edema, would add IV furosemide for now. 2. AUGUSTINE: Improved. Nephrology on consult and tests ordered. Kidney biopsy performed, results pending. 3. Hyponatremia: Ongoing, but improving. May be related with HCTZ plus minus dilution from hypervolemia: Monitor. Inpatient E&M: 79073 Subs Hosp L2
[2020-01-13] MEDS: Insulin Lispro 100 UNIT/ML INSULN.PEN SC ×3 (12:29→21:33)
[2020-01-13] MEDS: Ceftriaxone 1 GM/50 ML BAG IV (12:45)
[2020-01-13] MEDS: Amiodarone 200 MG Tablet PO ×2 (12:48→21:33)
[2020-01-13] MEDS: Metoprolol Tartrate 25 MG Tablet PO ×2 (12:49→21:33)
[2020-01-13] MEDS: Pantoprazole Sodium 40 MG Tablet PO (12:49)
[2020-01-13 12:53] LABS: Anti-Glomerular Basement Memb 7 units (0-20); Perinuclear Ab (P-ANCA) <1:20 titer (Neg:<1:20)
[2020-01-13] MEDS: oxyCODONE 5 MG Tablet PO ×2 (13:13→18:53)
--- NOTE | 2020-01-13 13:32 | CASEMGMT ---
This RN CM to room to discuss discharge plan at this time. Pt's sister is interested in [facility] for pt discharge at this time and this RN CM discussed with pt at this time. Pt declines to make a decision at this time as he states he is in pain and would like this RN CM to check back on Thursday. Advised pt that there is a chance that he may d/c over the weekend and pt still declines to answer at this time. Pt did accept a list of local [facility] companies at this time. CM to follow. Venkat NGUYEN CM
[2020-01-13 13:35] LABS: Iron 52 ug/dL (65-175); Iron Binding Capacity,Total 239 ug/dL (250-450); PERCENT IRON SATURATION 21.8 % (15.0-55.0)
[2020-01-13] MEDS: Furosemide 40 MG/4 ML Vial IV ×2 (15:12→21:33)
--- NOTE | 2020-01-13 15:57 | NURSING ---
Read and reviewed SN documentation
[2020-01-13 16:08] LABS: Albumin, Ur 25.2 % (.); Albumin, Ur 29.7 % (.); Alpha-1-Globulin, Ur 6.1 % (.); Alpha-1-Globulin, Ur 7.3 % (.); Alpha-2-Globulins, Ur 21.8 % (.); Beta Globulin, Ur 28.5 % (.); Beta Globulin, Ur 31.8 % (.); Gamma Globulin, Ur 17.2 % (.); M-Spike, Ur % Not Observed % (Not Observed); Protein, 24Ur 155 mg/24 hr (30-150); Protein, 24Ur 158 mg/24 hr (30-150); Total Protein, Ur 12.4 mg/dL (Not Estab.); Total Protein, Ur 12.6 mg/dL (Not Estab.)
[2020-01-13 16:53] LABS: M-Spike, Ur % Comment: % (Not Observed); PE Ur Interpretation Comment: (.)
[2020-01-13 17:30] LABS: Bedside Glucose 234 mg/dL (70-110)
[2020-01-13] MEDS: Acetaminophen 325 MG Tablet 650 MG PO (18:53)
[2020-01-13] MEDS: 0.9% Saline Lock 10 ML Syringe IV (21:33)
[2020-01-13 21:50] LABS: Bedside Glucose 231 mg/dL (70-110)
[2020-01-14] VITALS (11 sets, daily range): BP systolic 94–115; BP diastolic 45–65; PULSE 72–94; RESP 16–18; TEMP 36.7–36.8; O2SAT 94–98
[2020-01-14] MEDS: Acetaminophen 325 MG Tablet 650 MG PO ×2 (02:46→18:45)
[2020-01-14] MEDS: oxyCODONE 5 MG Tablet PO ×3 (02:47→18:46)
[2020-01-14] MEDS: 0.9% Saline Lock 10 ML Syringe IV ×3 (05:12→21:08)
[2020-01-14] MEDS: Enoxaparin 30 MG/0.3 ML Syringe SC (05:12)
[2020-01-14] MEDS: Furosemide 40 MG/4 ML Vial IV ×3 (05:13→21:03)
[2020-01-14] MEDS: Insulin Lispro 100 UNIT/ML INSULN.PEN SC ×4 (06:34→21:04)
[2020-01-14 06:47] LABS: Absolute Lymphocyte Count 0.78 X10^3/uL (0.83-4.51); Absolute Neutrophil Count 5.1 X10^3/uL (2.0-7.7); Basophil# 0.01 X10^3/uL; Basophil% 0.1 % (0-1); Eosinophil# 0.17 X10^3/uL; Eosinophils% 2.4 % (0-5); Hematocrit 29.2 % (40-54); Hemoglobin 9.6 g/dL (13.0-16.5); Lymphocyte # 0.78 X10^3/ul (4.0); Mean Corp Hgb Conc 32.9 g/dL (32-36); Mean Corpuscular Hgb 29.8 pg (27.0-32.0); Mean Corpuscular Volume 90.7 fL (80-94); Mean Platelet Vol. 9.2 fl (6.2-12.0); Monocyte# 0.98 X10^3/uL; Monocyte% 13.8 % (0-10); NRBC Flagged by Analyzer 0 % (0-5); Neutrophil # 5.11 X10^3/uL (2.7-7.7); Neutrophil % 72.1 % (47-70); Platelet Count 276 K/mm3 (150-450); RBC Distribution Width CV 12.9 % (11.6-14.6); Red Blood Count 3.22 M/mm3 (4.6-6.2); White Blood Count 7.1 K/mm3 (4.4-11.0)
[2020-01-14 06:50] LABS: Bedside Glucose 195 mg/dL (70-110)
[2020-01-14 07:03] LABS: Anion Gap 9 (5-15); BUN 90 mg/dL (7-18); BUN/Creat Ratio 43.1 RATIO (10-20); Calcium,Total 9.7 mg/dL (8.5-10.1); Chloride 93 mmol/L (98-107); Creatinine, Serum 2.09 mg/dL (0.70-1.30); EST Glomerular Filtration Rate 34 mL/min (>60); Est Glom Filt Rate - Afr Amer 41 mL/min (>60); Glucose 203 mg/dL (74-106); Potassium 4.7 mmol/L (3.5-5.1); Sodium Level 131 mmol/L (136-145)
[2020-01-14] MEDS: Amiodarone 200 MG Tablet PO ×2 (09:27→21:03)
[2020-01-14] MEDS: Pantoprazole Sodium 40 MG Tablet PO (09:27)
[2020-01-14] MEDS: Ceftriaxone 1 GM/50 ML BAG IV (09:34)
[2020-01-14 09:36] LABS: Bedside Glucose 234 mg/dL (70-110)
[2020-01-14 12:31] LABS: Bedside Glucose 254 mg/dL (70-110)
--- NOTE | 2020-01-14 13:06 | PN_ITS ---
<Jey Osorio - Last Filed: 01/14/20 13:06> Patient Problems: Active and Suspected Problems Bilateral cellulitis of lower leg (Acute) Stasis dermatitis of both legs (Acute) Reason for Visit: AUGUSTINE, cellulitis Subjective: Ongoing LE pain. Edema minimally changed from yesterday. No fever/chills. No cough/sob. Pt planning to go home at discharge. No therapy recommended per PT. Vitals/I&O's: Vital Signs Temp Pulse Resp BP Pulse Ox 98.3 F 87 16 94/45 L 98 01/14/20 08:44 01/14/20 08:44 01/14/20 08:44 01/14/20 08:44 01/14/20 08:44 Oxygen Flow Rate (L/min) 2 Oxygen Delivery Method [3] Room Air Oxygen Delivery Method [2] Room Air Oxygen Delivery Method [1 ( Room Air Initial Baseline)] Oxygen Delivery Method Room Air Weight: 273 lb 13.026 oz Body Mass Index (BMI) 39.2 Finger Stick Blood Glucose 172 Intake and Output for Last 24 Hours 01/12/20 01/13/20 01/14/20 23:59 23:59 23:59 Intake Total 967 / 967 909 / 909 600 / 600 Output Total 1125 / 1125 3170 / 3170 1150 / 1150 Balance -158 / -158 -2261 / -2261 -550 / -550 General: Alert, Oriented x3, Cooperative HEENT: Atraumatic, PERRLA, EOMI, Normocephalic Neck: Supple, No JVD, Negative Carotid Bruits Lungs: Clear to auscultation, Normal air movement Cardiovascular: Regular rate, No murmurs Abdomen: Bowel Sounds Present, Soft, Non Tender Extremities: Capillary Refill Less than 3 Seconds, Edema - 2-3+ pitting edema BLE R>L Skin: No rashes, No breakdown Musculoskeletal: No Tenderness to Palpation of Joints or Extremities Neurological: Cranial nerves II-XII grossly intact Psych/Mental Status: Normal Affect, Appropriate, Alert and oriented to time, place, person, mood and affect Microbiology Past 72 Hours 01/08/20 15:15 Blood Culture (Wb) - Left Hand Blood Culture - Final No growth in 5 days. 01/08/20 15:21 Blood Culture (Wb) - Right Hand Blood Culture - Final No growth in 5 days. 01/08/20 17:35 Wound - Leg, Right Gram Stain - Final 01/08/20 17:35 Wound - Leg, Right Wound Culture - Final Serratia marcescens Proteus mirabilis Klebsiella oxytoca Corynebacterium striatum 01/08/20 17:35 Wound - Leg, Left Gram Stain - Final 01/08/20 17:35 Wound - Leg, Left Wound Culture - Final Serratia marcescens Proteus mirabilis Klebsiella oxytoca Corynebacterium striatum Laboratory Results 01/09/20 13:08: Ur Total Protein 24 Hr 155 H, Urine Total Protein 12.4, Urine Albumin 25.2, U Evllq-1-Aqkhaxcb 7.3, U Oxlnd-6-Wlknhhso 21.8, U Beta Globulin 28.5, U Gamma Globulin 17.2, U PEP M-Diego Comment:, U PEP M-Diego 24 Hr TNP, Urine Immunofixation Comment, Ur Immunofix PEP Note Comment 01/09/20 13:08: Ur Total Protein 24 Hr 158 H, Urine Total Protein 12.6, Urine Albumin 29.7, U Azheg-7-Dxuwalgh 6.1, U Jfcfu-6-Nrrhywgn 15.3, U Beta Globulin 31.8, U Gamma Globulin 17.2, U PEP M-Diego Not Observed, U PEP M-Diego 24 Hr TNP, Urine PEP Interpret Comment:, Ur Immunofix PEP Note Comment 01/11/20 10:04: YUE-1 Antibody Not Reportable, SS-A/Ro IgG Antibody Not Reportable, SS-B/La IgG Antibody Not Reportable, Sm (Tang) Antibody Not Reportable, VENEER MARKER Antibody Not Reportable, Scl-70 Scleroderma Ab Not Reportable, Double Strand DNA Ab Not Reportable, Centromere B Antibody Not Reportable 01/13/20 04:42: Iron 52 L, TIBC 239 L, Iron Saturation 21.8 01/13/20 16:54: POC Glucose 234 H 01/13/20 21:30: POC Glucose 231 H 01/14/20 06:31: POC Glucose 195 H 01/14/20 06:34: Sodium 131 L, Potassium 4.7, Chloride 93 L, Carbon Dioxide 29.0, Anion Gap 9, BUN 90 H, Creatinine 2.09 H, Estim Creat Clear Calc 35.90, Est GFR (MDRD) Af Amer 41 L, Est GFR (MDRD) Non-Af 34 L, BUN/Creatinine Ratio 43.1 H, Glucose 203 H, Calcium 9.7 01/14/20 06:34: WBC 7.1, RBC 3.22 L, Hgb 9.6 L, Hct 29.2 L, MCV 90.7, MCH 29.8, MCHC 32.9, RDW Std Deviation 43.0, RDW Coeff of Tahmina 12.9, Plt Count 276, MPV 9.2, Immature Gran % (Auto) 0.600, Neut % (Auto) 72.1 H, Lymph % (Auto) 11.0 L, Carter % (Auto) 13.8 H, Eos % (Auto) 2.4, Baso % (Auto) 0.1, Absolute Neuts (auto) 5.1, Absolute Lymphs (auto) 0.78 L, Nucleated RBC % 0 01/14/20 09:23: POC Glucose 234 H 01/14/20 12:03: POC Glucose 254 H Current Medications Acetaminophen (Tylenol) 650 mg PO Q6H PRN PRN PRN Reason: Pain Score 1-10/Temp > 100.7 F Last Admin: 01/14/20 02:46 Dose: 650 mg Documented by: Al Hydroxide/Mg Hydroxide (Mylanta Ii) 30 ml PO Q6H PRN PRN PRN Reason: Gastric Burning Albuterol Sulfate (Ventolin Aerosols) 2.5 mg INHALATION Q2H PRN PRN PRN Reason: SOB/Wheezing Amiodarone HCl (Cordarone) 200 mg PO BID [facility] Last Admin: 01/14/20 09:27 Dose: 200 mg Documented by: Enoxaparin Sodium (Lovenox) 30 mg SC DAILY@0600 [facility] Last Admin: 01/14/20 05:12 Dose: 30 mg Documented by: Furosemide (Lasix) 40 mg IV Q8 [facility] Last Admin: 01/14/20 05:13 Dose: 40 mg Documented by: Guaifenesin (Robitussin) 20 ml PO Q4H PRN PRN PRN Reason: COUGH Hydralazine HCl (Apresoline Iv) 10 mg IV Q4H PRN PRN PRN Reason: Hypertensive Emergency Sodium Chloride () 250 mls @ 15 mls/hr IV .[id number] PRN PRN Reason: Saline Flush Sodium Chloride () 250 mls @ 15 mls/hr IV .[id number] PRN PRN Reason: Additional IVPB Infusion Ceftriaxone Sodium (Rocephin) 1 gm in 50 mls @ 100 mls/hr IV Q24 [facility] Last Admin: 01/14/20 09:34 Dose: 100 mls/hr Documented by: Insulin Glargine (Lantus ([facility])) 10 units SC BREAKFAST [facility] Last Admin: 01/14/20 09:27 Dose: 10 units Documented by: Insulin Human Lispro (Humalog Kwikpen ([facility])) 0 unit SC ACHS [facility]; Protocol Last Admin: 01/14/20 12:05 Dose: 4 units Documented by: Lactobacillus Acidophilus (Acidophilus) 1 tablet PO DAILY [facility] Last Admin: 01/14/20 09:27 Dose: 1 tablet Documented by: Magnesium Hydroxide (Milk Of Magnesia) 30 ml PO DAILY PRN PRN PRN Reason: Constipation Melatonin (Melatonin) 3 mg PO QHS PRN PRN PRN Reason: INSOMNIA Metoprolol Tartrate (Lopressor (Beta Emilie)) 25 mg PO BID [facility] Last Admin: 01/14/20 09:28 Dose: Not Given Documented by: Nitroglycerin (Nitrostat) 0.4 mg SUBLINGUAL Q5M PRN PRN Reason: CARDIAC/CHEST PAIN Oxycodone HCl (Oxyir) 5 mg PO Q4H PRN PRN PRN Reason: Pain Score 4-10/10 Last Admin: 01/14/20 12:10 Dose: 5 mg Documented by: Pantoprazole Sodium (Protonix) 40 mg PO DAILY [facility] Last Admin: 01/14/20 09:27 Dose: 40 mg Documented by: Promethazine HCl (Phenergan) 25 mg IM Q6H PRN PRN PRN Reason: Breakthrough Nausea/Vomiting Sodium Chloride () 10 - 40 ml IV UD PRN PRN Reason: SALINE FLUSH Last Admin: 01/14/20 09:35 Dose: 10 ml Documented by: Medical Necessity - Tobacco Use Smoking Status: Former smoker Assessment/Plan All Active Problems Bilateral cellulitis of lower leg (Acute) Stasis dermatitis of both legs (Acute) Acute systolic (congestive) heart failure (Acute) Acute cholecystitis (Acute) Right upper quadrant abdominal pain (Acute) Abnormal electrocardiogram (Acute) Abnormal echocardiogram (Acute) 1. BL LE cellulitis complicated by chronic venous insufficiency - plan to transition to omnicef. cx's susceptible to rocephin. Continue wound care with daily dressing changes and plan for wound care center follow up. Micro shows Serratia macescens, Proteus mirabilis, Klebsiella oxytoca, Corynebacterium striatum. 2. AUGUSTINE - Nephrology consulted. Continues to improve with good urine output with lasix. Ongoing edema. 3. Hyponatremia - Improved. HCTZ stopped. fluids restricted. likely hypervolemic. 4. chronic systolic CHF, cardiomyopathy - edema improved with lasix. No SOB. Echo with EF 50%. 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 5. DMt2 with morbid obesity - lantus + SSI. 6. HTN - stable now. 7. Normocytic anemia - 10.2-->8.8-->9.6. Baseline unclear. iron and TIBC low, ir on sat normal. DVT ppx: lovenox DC planning: PTOT evals. Monitor renal function closely with lasix for further improvement prior to DC. reportedly recent Cr was<1.0 This patient was seen by Jey Osorio PA-C under the supervision of Doctor Qasim. <Iván Tripp - Last Filed: 01/14/20 14:02> Vitals/I&O's: Vital Signs Temp Pulse Resp BP Pulse Ox 36.8 C 87 16 94/45 L 98 01/14/20 08:44 01/14/20 08:44 01/14/20 08:44 01/14/20 08:44 01/14/20 08:44 Oxygen Flow Rate (L/min) 2 Oxygen Delivery Method [3] Room Air Oxygen Delivery Method [2] Room Air Oxygen Delivery Method [1 ( Room Air Initial Baseline)] Oxygen Delivery Method Room Air Weight: 124.2 kg Body Mass Index (BMI) 39.2 Finger Stick Blood Glucose 172 Intake and Output for Last 24 Hours 01/12/20 01/13/20 01/14/20 23:59 23:59 23:59 Intake Total 967 / 967 909 / 909 650 / 650 Output Total 1125 / 1125 3170 / 3170 1150 / 1150 Balance -158 / -158 -2261 / -2261 -500 / -500 General: Alert, Cooperative HEENT: Atraumatic, Normocephalic Lungs: Clear to auscultation, Normal air movement Cardiovascular: Regular rate, No murmurs Abdomen: Bowel Sounds Present, Soft, Non Tender Extremities: Capillary Refill Less than 3 Seconds, Edema Skin: No rashes, No breakdown Psych/Mental Status: Normal Affect, Appropriate Microbiology Past 72 Hours 01/08/20 15:15 Blood Culture (Wb) - Left Hand Blood Culture - Final No growth in 5 days. 01/08/20 15:21 Blood Culture (Wb) - Right Hand Blood Culture - Final No growth in 5 days. 01/08/20 17:35 Wound - Leg, Right Gram Stain - Final 01/08/20 17:35 Wound - Leg, Right Wound Culture - Final Serratia marcescens Proteus mirabilis Klebsiella oxytoca Corynebacterium striatum 01/08/20 17:35 Wound - Leg, Left Gram Stain - Final 01/08/20 17:35 Wound - Leg, Left Wound Culture - Final Serratia marcescens Proteus mirabilis Klebsiella oxytoca Corynebacterium striatum Laboratory Results 01/09/20 13:08: Ur Total Protein 24 Hr 155 H, Urine Total Protein 12.4, Urine Albumin 25.2, U Pmjaj-7-Oikfazit 7.3, U Oouwa-4-Wcukshew 21.8, U Beta Globulin 28.5, U Gamma Globulin 17.2, U PEP M-Diego Comment:, U PEP M-Diego 24 Hr TNP, Urine Immunofixation Comment, Ur Immunofix PEP Note Comment 01/09/20 13:08: Ur Total Protein 24 Hr 158 H, Urine Total Protein 12.6, Urine Albumin 29.7, U Afwgn-8-Htkzwwmq 6.1, U Ugxim-5-Fxxoixuy 15.3, U Beta Globulin 31.8, U Gamma Globulin 17.2, U PEP M-Diego Not Observed, U PEP M-Diego 24 Hr TNP, Urine PEP Interpret Comment:, Ur Immunofix PEP Note Comment 01/11/20 10:04: YUE-1 Antibody Not Reportable, SS-A/Ro IgG Antibody Not Reportable, SS-B/La IgG Antibody Not Reportable, Sm (Tang) Antibody Not Reportable, VENEER MARKER Antibody Not Reportable, Scl-70 Scleroderma Ab Not Reportable, Double Strand DNA Ab Not Reportable, Centromere B Antibody Not Reportable 01/13/20 16:54: POC Glucose 234 H 01/13/20 21:30: POC Glucose 231 H 01/14/20 06:31: POC Glucose 195 H 01/14/20 06:34: Sodium 131 L, Potassium 4.7, Chloride 93 L, Carbon Dioxide 29.0, Anion Gap 9, BUN 90 H, Creatinine 2.09 H, Estim Creat Clear Calc 35.90, Est GFR (MDRD) Af Amer 41 L, Est GFR (MDRD) Non-Af 34 L, BUN/Creatinine Ratio 43.1 H, Glucose 203 H, Calcium 9.7 01/14/20 06:34: WBC 7.1, RBC 3.22 L, Hgb 9.6 L, Hct 29.2 L, MCV 90.7, MCH 29.8, MCHC 32.9, RDW Std Deviation 43.0, RDW Coeff of Tahmina 12.9, Plt Count 276, MPV 9.2, Immature Gran % (Auto) 0.600, Neut % (Auto) 72.1 H, Lymph % (Auto) 11.0 L, Carter % (Auto) 13.8 H, Eos % (Auto) 2.4, Baso % (Auto) 0.1, Absolute Neuts (auto) 5.1, Absolute Lymphs (auto) 0.78 L, Nucleated RBC % 0 01/14/20 09:23: POC Glucose 234 H 01/14/20 12:03: POC Glucose 254 H Current Medications Acetaminophen (Tylenol) 650 mg PO Q6H PRN PRN PRN Reason: Pain Score 1-10/Temp > 100.7 F Last Admin: 01/14/20 02:46 Dose: 650 mg Documented by: Al Hydroxide/Mg Hydroxide (Mylanta Ii) 30 ml PO Q6H PRN PRN PRN Reason: Gastric Burning Albuterol Sulfate (Ventolin Aerosols) 2.5 mg INHALATION Q2H PRN PRN PRN Reason: SOB/Wheezing Amiodarone HCl (Cordarone) 200 mg PO BID [facility] Last Admin: 01/14/20 09:27 Dose: 200 mg Documented by: Enoxaparin Sodium (Lovenox) 30 mg SC DAILY@0600 [facility] Last Admin: 01/14/20 05:12 Dose: 30 mg Documented by: Furosemide (Lasix) 40 mg IV Q8 [facility] Last Admin: 01/14/20 05:13 Dose: 40 mg Documented by: Guaifenesin (Robitussin) 20 ml PO Q4H PRN PRN PRN Reason: COUGH Hydralazine HCl (Apresoline Iv) 10 mg IV Q4H PRN PRN PRN Reason: Hypertensive Emergency Sodium Chloride () 250 mls @ 15 mls/hr IV .[id number] PRN PRN Reason: Saline Flush Sodium Chloride () 250 mls @ 15 mls/hr IV .[id number] PRN PRN Reason: Additional IVPB Infusion Ceftriaxone Sodium (Rocephin) 1 gm in 50 mls @ 100 mls/hr IV Q24 [facility] Last Infusion: 01/14/20 13:56 Dose: Infused Documented by: Insulin Glargine (Lantus ([facility])) 10 units SC BREAKFAST [facility] Last Admin: 01/14/20 09:27 Dose: 10 units Documented by: Insulin Human Lispro (Humalog Kwikpen ([facility])) 0 unit SC ACHS [facility]; Protocol Last Admin: 01/14/20 12:05 Dose: 4 units Documented by: Lactobacillus Acidophilus (Acidophilus) 1 tablet PO DAILY [facility] Last Admin: 01/14/20 09:27 Dose: 1 tablet Documented by: Magnesium Hydroxide (Milk Of Magnesia) 30 ml PO DAILY PRN PRN PRN Reason: Constipation Melatonin (Melatonin) 3 mg PO QHS PRN PRN PRN Reason: INSOMNIA Metoprolol Tartrate (Lopressor (Beta Emilie)) 25 mg PO BID [facility] Last Admin: 01/14/20 09:28 Dose: Not Given Documented by: Nitroglycerin (Nitrostat) 0.4 mg SUBLINGUAL Q5M PRN PRN Reason: CARDIAC/CHEST PAIN Oxycodone HCl (Oxyir) 5 mg PO Q4H PRN PRN PRN Reason: Pain Score 4-10/10 Last Admin: 01/14/20 12:10 Dose: 5 mg Documented by: Pantoprazole Sodium (Protonix) 40 mg PO DAILY [facility] Last Admin: 01/14/20 09:27 Dose: 40 mg Documented by: Promethazine HCl (Phenergan) 25 mg IM Q6H PRN PRN PRN Reason: Breakthrough Nausea/Vomiting Sodium Chloride () 10 - 40 ml IV UD PRN PRN Reason: SALINE FLUSH Last Admin: 01/14/20 09:35 Dose: 10 ml Documented by: Assessment/Plan Patient seen and examined independently. Data reviewed. I agree with the above note by the physician assistant kitchen manager. 1. Bilateral lower extremity venous stasis dermatitis.'s bilateral Wounds, however, are growing gram-negative rods as well as gram-positive organisms. Given the poor care he had for his legs, would treat this as an actual infection. On CTX. Echocardiogram performed showed an EF of 50%. No RV evaluation. Continue with Julio Cesar wraps and keeping legs elevated as much as possible. For the edema, would add IV furosemide for now. 2. AUGUSTINE: Improved. Nephrology on consult and tests ordered. Kidney biopsy performed, results pending. 3. Hyponatremia: Ongoing, but improving. May be related with HCTZ plus minus dilution from hypervolemia: Monitor. Inpatient E&M: [id number] Subs Hosp L2
[2020-01-14 16:51] LABS: Bedside Glucose 234 mg/dL (70-110)
[2020-01-14] MEDS: Metoprolol Tartrate 25 MG Tablet PO (21:14)
[2020-01-14 22:16] LABS: Bedside Glucose 245 mg/dL (70-110)
[2020-01-15] VITALS (13 sets, daily range): BP systolic 99–126; BP diastolic 47–69; PULSE 65–91; RESP 16–18; TEMP 36.2–36.8; O2SAT 96–99
[2020-01-15] MEDS: Furosemide 40 MG/4 ML Vial IV ×3 (05:43→22:42)
[2020-01-15] MEDS: Enoxaparin 30 MG/0.3 ML Syringe SC (05:43)
[2020-01-15] MEDS: 0.9% Saline Lock 10 ML Syringe IV (05:45)
[2020-01-15] MEDS: oxyCODONE 5 MG Tablet PO ×3 (06:24→15:21)
[2020-01-15 06:29] LABS: Anion Gap 7 (5-15); BUN 80 mg/dL (7-18); BUN/Creat Ratio 43.5 RATIO (10-20); Calcium,Total 9.5 mg/dL (8.5-10.1); Chloride 93 mmol/L (98-107); Creatinine, Serum 1.84 mg/dL (0.70-1.30); EST Glomerular Filtration Rate 39 mL/min (>60); Est Glom Filt Rate - Afr Amer 48 mL/min (>60); Estimated Creatinine Clearance 40.78 ml/min; Glucose 205 mg/dL (74-106); Potassium 4.2 mmol/L (3.5-5.1); Sodium Level 131 mmol/L (136-145)
[2020-01-15] MEDS: Insulin Lispro 100 UNIT/ML INSULN.PEN SC ×4 (06:31→22:41)
[2020-01-15 06:56] LABS: Bedside Glucose 193 mg/dL (70-110)
[2020-01-15] MEDS: Metoprolol Tartrate 25 MG Tablet PO ×2 (08:39→22:42)
[2020-01-15] MEDS: Pantoprazole Sodium 40 MG Tablet PO (08:39)
[2020-01-15] MEDS: Amiodarone 200 MG Tablet PO ×2 (08:39→22:41)
[2020-01-15 10:16] LABS: Bedside Glucose 206 mg/dL (70-110)
--- NOTE | 2020-01-15 10:25 | PCM.PN.HOSP ---
<Jey Osorio PA - Last Filed: 01/15/20 10:25> Patient Problems: Active and Suspected Problems Bilateral cellulitis of lower leg (Acute) Stasis dermatitis of both legs (Acute) Reason for Visit: AUGUSTINE, cellulitis. Subjective: Ongoing significant burning pain BL LE. Some difficulty ambulating due to pain. Able to ambulate with walker. Pt wants to go home at [place]. Swelling somewhat improved. No fever/chills. No SOB/cough. Pt planning to go home with home health care. Vitals/I&O's: Vital Signs Temp Pulse Resp BP Pulse Ox 98.3 F 84 16 112/57 L 97 01/15/20 08:31 01/15/20 08:39 01/15/20 08:31 01/15/20 08:31 01/15/20 08:31 Oxygen Flow Rate (L/min) 2 Oxygen Delivery Method [3] Room Air Oxygen Delivery Method [2] Room Air Oxygen Delivery Method [1 ( Room Air Initial Baseline)] Oxygen Delivery Method Room Air Weight: 274 lb 11.135 oz Body Mass Index (BMI) 39.2 Finger Stick Blood Glucose 172 Intake and Output for Last 24 Hours 01/13/20 01/14/20 01/15/20 23:59 23:59 23:59 Intake Total 909 / 909 1290 / 1290 240 / 240 Output Total 3170 / 3170 2425 / 2425 400 / 400 Balance -2261 / -2261 -1135 / -1135 -160 / -160 General: Alert, Oriented x3, Cooperative HEENT: Atraumatic, PERRLA, EOMI, Normocephalic Neck: Supple, No JVD, Negative Carotid Bruits Lungs: Clear to auscultation, Normal air movement Cardiovascular: Regular rate, No murmurs Abdomen: Bowel Sounds Present, Soft, Non Tender Extremities: Capillary Refill Less than 3 Seconds, Edema - 2-3+ pitting edema BL LE. marked tenderness to light tough. erythema. no increased warmth. ongoing serosanguinous drainage. Skin: No rashes, No breakdown Musculoskeletal: No Tenderness to Palpation of Joints or Extremities Neurological: Cranial nerves II-XII grossly intact Psych/Mental Status: Normal Affect, Appropriate, Alert and oriented to time, place, person, mood and affect Microbiology Past 72 Hours 01/08/20 15:15 Blood Culture (Wb) - Left Hand Blood Culture - Final No growth in 5 days. 01/08/20 15:21 Blood Culture (Wb) - Right Hand Blood Culture - Final No growth in 5 days. 01/08/20 17:35 Wound - Leg, Right Gram Stain - Final 01/08/20 17:35 Wound - Leg, Right Wound Culture - Final Serratia marcescens Proteus mirabilis Klebsiella oxytoca Corynebacterium striatum 01/08/20 17:35 Wound - Leg, Left Gram Stain - Final 01/08/20 17:35 Wound - Leg, Left Wound Culture - Final Serratia marcescens Proteus mirabilis Klebsiella oxytoca Corynebacterium striatum Laboratory Results 01/14/20 12:03: POC Glucose 254 H 01/14/20 16:40: POC Glucose 234 H 01/14/20 21:00: POC Glucose 245 H 01/15/20 05:35: Sodium 131 L, Potassium 4.2, Chloride 93 L, Carbon Dioxide 31.0, Anion Gap 7, BUN 80 H, Creatinine 1.84 H, Estim Creat Clear Calc 40.78, Est GFR (MDRD) Af Amer 48 L, Est GFR (MDRD) Non-Af 39 L, BUN/Creatinine Ratio 43.5 H, Glucose 205 H, Calcium 9.5 01/15/20 06:30: POC Glucose 193 H 01/15/20 08:45: POC Glucose 206 H Current Medications Acetaminophen (Tylenol) 650 mg PO Q6H PRN PRN PRN Reason: Pain Score 1-10/Temp > 100.7 F Last Admin: 01/14/20 18:45 Dose: 650 mg Documented by: Al Hydroxide/Mg Hydroxide (Mylanta Ii) 30 ml PO Q6H PRN PRN PRN Reason: Gastric Burning Albuterol Sulfate (Ventolin Aerosols) 2.5 mg INHALATION Q2H PRN PRN PRN Reason: SOB/Wheezing Amiodarone HCl (Cordarone) 200 mg PO BID [facility] Last Admin: 01/15/20 08:39 Dose: 200 mg Documented by: Enoxaparin Sodium (Lovenox) 30 mg SC DAILY@0600 [facility] Last Admin: 01/15/20 05:43 Dose: 30 mg Documented by: Furosemide (Lasix) 40 mg IV Q8 [facility] Last Admin: 01/15/20 05:43 Dose: 40 mg Documented by: Guaifenesin (Robitussin) 20 ml PO Q4H PRN PRN PRN Reason: COUGH Hydralazine HCl (Apresoline Iv) 10 mg IV Q4H PRN PRN PRN Reason: Hypertensive Emergency Sodium Chloride () 250 mls @ 15 mls/hr IV .[id number] PRN PRN Reason: Saline Flush Sodium Chloride () 250 mls @ 15 mls/hr IV .[id number] PRN PRN Reason: Additional IVPB Infusion Ceftriaxone Sodium (Rocephin) 1 gm in 50 mls @ 100 mls/hr IV Q24 [facility] Last Infusion: 01/14/20 13:56 Dose: Infused Documented by: Insulin Glargine (Lantus ([facility])) 10 units SC BREAKFAST [facility] Last Admin: 01/15/20 08:46 Dose: 10 units Documented by: Insulin Human Lispro (Humalog Kwikpen ([facility])) 0 unit SC ACHS [facility]; Protocol Last Admin: 01/15/20 06:31 Dose: 2 units Documented by: Lactobacillus Acidophilus (Acidophilus) 1 tablet PO DAILY [facility] Last Admin: 01/15/20 08:39 Dose: 1 tablet Documented by: Magnesium Hydroxide (Milk Of Magnesia) 30 ml PO DAILY PRN PRN PRN Reason: Constipation Melatonin (Melatonin) 3 mg PO QHS PRN PRN PRN Reason: INSOMNIA Metoprolol Tartrate (Lopressor (Beta Emilie)) 25 mg PO BID [facility] Last Admin: 01/15/20 08:39 Dose: 25 mg Documented by: Nitroglycerin (Nitrostat) 0.4 mg SUBLINGUAL Q5M PRN PRN Reason: CARDIAC/CHEST PAIN Oxycodone HCl (Oxyir) 5 mg PO Q4H PRN PRN PRN Reason: Pain Score 4-10/10 Last Admin: 01/15/20 06:24 Dose: 5 mg Documented by: Pantoprazole Sodium (Protonix) 40 mg PO DAILY [facility] Last Admin: 01/15/20 08:39 Dose: 40 mg Documented by: Promethazine HCl (Phenergan) 25 mg IM Q6H PRN PRN PRN Reason: Breakthrough Nausea/Vomiting Sodium Chloride () 10 - 40 ml IV UD PRN PRN Reason: SALINE FLUSH Last Admin: 01/15/20 05:45 Dose: 10 ml Documented by: STROKE Vital Signs/Narrative: Vital Signs Temp Pulse Resp BP Pulse Ox 01/15/20 08:39 84 01/15/20 08:31 98.3 F 84 16 112/57 L 97 01/15/20 07:55 97 01/15/20 07:22 78 Medical Necessity - Tobacco Use Smoking Status: Former smoker Assessment/Plan All Active Problems Bilateral cellulitis of lower leg (Acute) Stasis dermatitis of both legs (Acute) Acute systolic (congestive) heart failure (Acute) Acute cholecystitis (Acute) Right upper quadrant abdominal pain (Acute) Abnormal electrocardiogram (Acute) Abnormal echocardiogram (Acute) 1. BL LE cellulitis complicated by chronic venous insufficiency - cx's susceptible to rocephin. Serratia resistant to cefazolin. Transition to omnicef. Continue wound care with daily dressing changes and plan for wound care center follow up. C for dressing changes at home. Micro shows Serratia macescens, Proteus mirabilis, Klebsiella oxytoca, Corynebacterium striatum. 2. AUGUSTINE - Nephrology consulted. Continues to improve with good urine output with lasix. Ongoing edema. 3. Hyponatremia - Improved. HCTZ stopped. fluids restricted. likely hypervolemic. 4. chronic systolic CHF, cardiomyopathy - edema improved with lasix. No SOB. Echo with EF 50%. 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 5. DMt2 with morbid obesity - lantus + SSI. 6. HTN - stable now. 7. Normocytic anemia - stable. DVT ppx: lovenox DC planning: PTOT evals. Monitor renal function closely with lasix for further improvement prior to DC. reportedly recent Cr was<1.0 This patient was seen by Jey Osorio PA-C under the supervision of Doctor Qasim. <Iván Tripp - Last Filed: 01/15/20 11:25> Vitals/I&O's: Vital Signs Temp Pulse Resp BP Pulse Ox 36.8 C 84 16 112/57 L 97 01/15/20 08:31 01/15/20 08:39 01/15/20 08:31 01/15/20 08:31 01/15/20 08:31 Oxygen Flow Rate (L/min) 2 Oxygen Delivery Method [3] Room Air Oxygen Delivery Method [2] Room Air Oxygen Delivery Method [1 ( Room Air Initial Baseline)] Oxygen Delivery Method Room Air Weight: 124.6 kg Body Mass Index (BMI) 39.2 Finger Stick Blood Glucose 172 Intake and Output for Last 24 Hours 01/13/20 01/14/20 01/15/20 23:59 23:59 23:59 Intake Total 909 / 909 1290 / 1290 240 / 240 Output Total 3170 / 3170 2425 / 2425 400 / 400 Balance -2261 / -2261 -1135 / -1135 -160 / -160 General: Alert, Cooperative HEENT: Atraumatic, Normocephalic Neck: Supple, Negative Carotid Bruits Lungs: Clear to auscultation, Normal air movement, No rhonchi, No wheeze Cardiovascular: Regular rate, Regular Rhythm, Normal S1, Normal S2, No murmurs Abdomen: Bowel Sounds Present, Soft, Non Tender, Non-Distended Extremities: No edema, No Calf Tenderness, Edema Skin: No rashes, No breakdown Psych/Mental Status: Normal Affect, Appropriate Microbiology Past 72 Hours 01/08/20 15:15 Blood Culture (Wb) - Left Hand Blood Culture - Final No growth in 5 days. 01/08/20 15:21 Blood Culture (Wb) - Right Hand Blood Culture - Final No growth in 5 days. 01/08/20 17:35 Wound - Leg, Right Gram Stain - Final 01/08/20 17:35 Wound - Leg, Right Wound Culture - Final Serratia marcescens Proteus mirabilis Klebsiella oxytoca Corynebacterium striatum 01/08/20 17:35 Wound - Leg, Left Gram Stain - Final 01/08/20 17:35 Wound - Leg, Left Wound Culture - Final Serratia marcescens Proteus mirabilis Klebsiella oxytoca Corynebacterium striatum Laboratory Results 01/14/20 12:03: POC Glucose 254 H 01/14/20 16:40: POC Glucose 234 H 01/14/20 21:00: POC Glucose 245 H 01/15/20 05:35: Sodium 131 L, Potassium 4.2, Chloride 93 L, Carbon Dioxide 31.0, Anion Gap 7, BUN 80 H, Creatinine 1.84 H, Estim Creat Clear Calc 40.78, Est GFR (MDRD) Af Amer 48 L, Est GFR (MDRD) Non-Af 39 L, BUN/Creatinine Ratio 43.5 H, Glucose 205 H, Calcium 9.5 01/15/20 06:30: POC Glucose 193 H 01/15/20 08:45: POC Glucose 206 H 01/15/20 11:05: POC Glucose 237 H Current Medications Acetaminophen (Tylenol) 650 mg PO Q6H PRN PRN PRN Reason: Pain Score 1-10/Temp > 100.7 F Last Admin: 01/15/20 11:07 Dose: 650 mg Documented by: Al Hydroxide/Mg Hydroxide (Mylanta Ii) 30 ml PO Q6H PRN PRN PRN Reason: Gastric Burning Albuterol Sulfate (Ventolin Aerosols) 2.5 mg INHALATION Q2H PRN PRN PRN Reason: SOB/Wheezing Amiodarone HCl (Cordarone) 200 mg PO BID [facility] Last Admin: 01/15/20 08:39 Dose: 200 mg Documented by: Cefdinir (Omnicef [Equiv]) 300 mg PO Q12 [facility] Enoxaparin Sodium (Lovenox) 30 mg SC DAILY@0600 [facility] Last Admin: 01/15/20 05:43 Dose: 30 mg Documented by: Furosemide (Lasix) 40 mg IV Q8 [facility] Last Admin: 01/15/20 05:43 Dose: 40 mg Documented by: Guaifenesin (Robitussin) 20 ml PO Q4H PRN PRN PRN Reason: COUGH Hydralazine HCl (Apresoline Iv) 10 mg IV Q4H PRN PRN PRN Reason: Hypertensive Emergency Sodium Chloride () 250 mls @ 15 mls/hr IV .[id number] PRN PRN Reason: Saline Flush Sodium Chloride () 250 mls @ 15 mls/hr IV .[id number] PRN PRN Reason: Additional IVPB Infusion Insulin Glargine (Lantus (Bk)) 12 units SC BREAKFAST [facility] Insulin Human Lispro (Humalog Kwikpen (Bk)) 0 unit SC ACHS [facility]; Protocol Last Admin: 01/15/20 11:08 Dose: 4 units Documented by: Lactobacillus Acidophilus (Acidophilus) 1 tablet PO DAILY [facility] Last Admin: 09/20/20 08:39 Dose: 1 tablet Documented by: Magnesium Hydroxide (Milk Of Magnesia) 30 ml PO DAILY PRN PRN PRN Reason: Constipation Melatonin (Melatonin) 3 mg PO QHS PRN PRN PRN Reason: INSOMNIA Metoprolol Tartrate (Lopressor (Beta Emilie)) 25 mg PO BID [facility] Last Admin: 01/15/20 08:39 Dose: 25 mg Documented by: Nitroglycerin (Nitrostat) 0.4 mg SUBLINGUAL Q5M PRN PRN Reason: CARDIAC/CHEST PAIN Oxycodone HCl (Oxyir) 5 mg PO Q4H PRN PRN PRN Reason: Pain Score 4-10/10 Last Admin: 01/15/20 11:07 Dose: 5 mg Documented by: Pantoprazole Sodium (Protonix) 40 mg PO DAILY [facility] Last Admin: 01/15/20 08:39 Dose: 40 mg Documented by: Promethazine HCl (Phenergan) 25 mg IM Q6H PRN PRN PRN Reason: Breakthrough Nausea/Vomiting Sodium Chloride () 10 - 40 ml IV UD PRN PRN Reason: SALINE FLUSH Last Admin: 01/15/20 05:45 Dose: 10 ml Documented by: STROKE Vital Signs/Narrative: Vital Signs Temp Pulse Resp BP Pulse Ox 01/15/20 08:39 84 01/15/20 08:31 36.8 C 84 16 112/57 L 97 01/15/20 07:55 97 Assessment/Plan Patient seen and examined independently. Data reviewed. I agree with the above note by the physician credit control assistant. 1. Bilateral lower extremity venous stasis dermatitis.'s bilateral Wounds, however, are growing gram-negative rods as well as gram-positive organisms. Given the poor care he had for his legs, would treat this as an actual infection. On CTX. Echocardiogram performed showed an EF of 50%. No RV evaluation. Continue with Julio Cesar wraps and keeping legs elevated as much as possible. For the edema, would add IV furosemide for now. 2. AUGUSTINE: Improved. Nephrology on consult and tests ordered. Kidney biopsy performed, results pending. 3. Hyponatremia: Ongoing, but improving. May be related with HCTZ plus minus dilution from hypervolemia: Monitor. Inpatient E&M: 75173 Subs Hosp L2
[2020-01-15] MEDS: Acetaminophen 325 MG Tablet 650 MG PO ×2 (11:07→18:54)
[2020-01-15 11:15] LABS: Bedside Glucose 237 mg/dL (70-110)
[2020-01-15] MEDS: Cefdinir 300 MG Capsule PO ×2 (11:26→22:42)
[2020-01-15 17:06] LABS: Bedside Glucose 253 mg/dL (70-110)
[2020-01-15 23:00] LABS: Bedside Glucose 270 mg/dL (70-110)
[2020-01-16 02:30] VITALS: BP 133/67; PULSE 83; RESP 18; TEMP 36.8; O2SAT 98
[2020-01-16 03:00] VITALS: PULSE 75
[2020-01-16] MEDS: Enoxaparin 30 MG/0.3 ML Syringe SC (05:10)
[2020-01-16] MEDS: 0.9% Saline Lock 10 ML Syringe IV (05:10)
[2020-01-16] MEDS: Furosemide 40 MG/4 ML Vial IV (05:11)
[2020-01-16 05:44] LABS: Anion Gap 7 (5-15); BUN 70 mg/dL (7-18); BUN/Creat Ratio 42.4 RATIO (10-20); Calcium,Total 9.7 mg/dL (8.5-10.1); Chloride 92 mmol/L (98-107); Creatinine, Serum 1.65 mg/dL (0.70-1.30); EST Glomerular Filtration Rate 45 mL/min (>60); Est Glom Filt Rate - Afr Amer 54 mL/min (>60); Estimated Creatinine Clearance 45.47 ml/min; Glucose 222 mg/dL (74-106); Potassium 4.3 mmol/L (3.5-5.1); Sodium Level 131 mmol/L (136-145)
[2020-01-16] MEDS: Insulin Lispro 100 UNIT/ML INSULN.PEN SC ×2 (06:46→11:39)
[2020-01-16 07:00] VITALS: PULSE 72
[2020-01-16 07:00] LABS: Bedside Glucose 213 mg/dL (70-110)
[2020-01-16 08:12] VITALS: BP 125/63; PULSE 92
[2020-01-16] MEDS: Metoprolol Tartrate 25 MG Tablet PO (08:12)
[2020-01-16] MEDS: Amiodarone 200 MG Tablet PO (08:12)
[2020-01-16] MEDS: Cefdinir 300 MG Capsule PO (08:12)
[2020-01-16] MEDS: Pantoprazole Sodium 40 MG Tablet PO (08:13)
[2020-01-16] MEDS: Acetaminophen 325 MG Tablet 650 MG PO (08:14)
[2020-01-16] MEDS: oxyCODONE 5 MG Tablet PO ×2 (08:15→15:06)
[2020-01-16 08:20] VITALS: BP 125/63; PULSE 92; RESP 20; TEMP 36.7; O2SAT 97
[2020-01-16 08:25] LABS: Bedside Glucose 195 mg/dL (70-110)
--- NOTE | 2020-01-16 09:59 | CASEMGMT ---
Addendum entered by Shira Vasquez 01/16/20 13:19: Script for dressing supplies was also faxed to [facility] previously and original to pt. Venkat NGUYEN CM Addendum entered by Shira Vasquez 01/16/20 13:09: Per Carlos wound RN, pt will need daily dressing change and pt states his son is teachable. Pt also requesting WW at this time and would like script faxed to [facility] at this time as he would prefer it delivered to hospital prior to discharge. Call back from Julia at [facility] and she states that they are able to take pt at this time and should be able to see pt tomorrow for SOC. Pt updated on all at this time, voices understanding. Pt voices no further questions/concerns/needs at this time. Per Tamar from therapy, pt does not need therapy at this time d/t leg pain. Script faxed to [facility] and call to [facility] to notify of WW referral and pt discharge. Per Jillian, they will get a WW to pt at this time. Venkat NGUYEN CM Original Note: This RN CM to room to see if pt picked a [facility] agency at this time. Pt states he has been looking over and would like one close to him here in [place]. Pt states he would like [facility] at this time. Pt declines need for therapy at this time. Order placed for SN at this time and call to Julia at [facility], who states she will call this RN CM back and let know if they can take pt. Pt states no further concerns/needs with going home at time of discharge. Script for supplies obtained from alanna Gonzalez RN, and she states she will call and make appt at the Wound clinic for pt at this time. Venkat NGUYEN CM
--- NOTE | 2020-01-16 10:19 | NURSING ---
wound photo: right lower leg
--- NOTE | 2020-01-16 10:19 | NURSING ---
wound photo: left lower leg
--- NOTE | 2020-01-16 10:20 | NURSING ---
wound photo: left lateral lower leg
--- NOTE | 2020-01-16 10:21 | NURSING ---
Script written for wound care supplies for home health care. [facility] appt for patient after discharge. talked with Amara who took patient's info. Amara asked if this nurse put in a referral for the wound center. There is a referral in the computer. Amara stated that the wound center would call the patient with appt time because the consults all need to go through [facility] first. ANKIT Silva aware.
--- NOTE | 2020-01-16 10:33 | DCINST_ITS ---
- Discharge Diagnoses Current Active Problems: Current Active and Chronic Problems Bilateral cellulitis of lower leg (Acute) Stasis dermatitis of both legs (Acute) Systolic CHF, chronic (Chronic) Obesity (BMI 30-39.9) (Chronic) CKD (chronic kidney disease) stage 3, GFR 30-59 ml/min (Chronic) You will use the following diet at home:: Cardiac Your food should be the consistency of: Regular Your liquids should be the consistency of: Regular/Thin Discharge Activity: Return to Normal Activity Instructions: Kidney Biopsy, ED Procedural Sedation, (Adult) Allergies/Adverse Reactions: Allergies tramadol Allergy (Verified 01/08/20 14:18) Rash Medications to take at Discharge Glimepiride [Amaryl] 4 mg PO DAILY 02/16/17 Amiodarone HCl [Cordarone] 200 mg PO BID #60 tablet 02/21/17 Aspirin [Aspirin, Baby] 81 mg PO DAILY@0800 #30 tab.chew 02/21/17 Lactobacillus Acidophilus [Acidophilus] 1 tablet PO DAILY #30 tablet 02/21/17 Pantoprazole Sodium [Protonix] 40 mg PO DAILY #30 tablet 02/21/17 Acetaminophen [Tylenol Tablet] 650 mg PO Q6H PRN PRN #0 tab 01/16/20 Bumetanide [Bumex] 1 mg PO TID #180 tab 01/16/20 Cefdinir [Omnicef [equiv]] 300 mg PO Q12 #4 cap 01/16/20 Insulin Glargine [Lantus SoloStar Pen] 12 units SUBCUT BREAKFAST #1 pen 01/16/20 Metoprolol Tartrate [Lopressor (beta stephen)] 25 mg PO BID #60 tab 01/16/20 Oxycodone [Oxyir] 5 mg PO Q4H PRN PRN 3 Days #18 tab 01/16/20 Pen Needle, Diabetic [Pen Needle] 1 ea SUBCUT DAILY #30 dis.needle 01/16/20 Potassium Chloride [K-Dur] 20 meq PO DAILYCM #30 tab 01/16/20 Bad tableOrders to be completed after discharge: Glucometer Location: None Selected Primary Care Physician: Shay Chin MD [Primary Care Provider] - Please follow up with your Primary Care Physician in: 1-2 weeks Test Results: Test results from this visit will be discussed in further detail at your follow- up appointment, if applicable. Please Follow Up With: Mark Contreras MD When: 2 weeks Please Follow Up With: Wound care center When: this week Please Follow Up With: Deep Norman DPM When: 4 weeks Proposed Discharge Date: 01/16/20
--- NOTE | 2020-01-16 10:40 | PN.RENAL_ITS ---
Patient Problems: Active and Suspected Problems Bilateral cellulitis of lower leg (Acute) Stasis dermatitis of both legs (Acute) Subjective: No nausea No vomiting breathing is better. Edema is better - Physical Exam Vitals/I&O's: Vital Signs Temp Pulse Resp BP Pulse Ox 98.0 F 92 20 H 125/63 H 97 01/16/20 08:20 01/16/20 08:20 01/16/20 08:20 01/16/20 08:20 01/16/20 08:20 Oxygen Flow Rate (L/min) 2 Oxygen Delivery Method [3] Room Air Oxygen Delivery Method [2] Room Air Oxygen Delivery Method [1 ( Room Air Initial Baseline)] Oxygen Delivery Method Room Air Weight: 124.6 kg Body Mass Index (BMI) 39.2 Finger Stick Blood Glucose 172 Intake and Output for Last 24 Hours 01/14/20 01/15/20 01/16/20 23:59 23:59 23:59 Intake Total 1290 / 1290 1200 / 1440 240 / 240 Output Total 2425 / 2425 1925 / 2175 1050 / 1050 Balance -1135 / -1135 -725 / -735 -810 / -810 General: Alert, Oriented x3 HEENT: Atraumatic Oral: Moist Mucosa Neck: Supple, No JVD Lungs: Clear to auscultation, Normal air movement, No rhonchi, No wheeze Cardiovascular: Regular rate, Regular Rhythm, Normal S1, Normal S2 Abdomen: Bowel Sounds Present, Soft, Non Tender, Non-Distended Extremities: No clubbing, No cyanosis, Edema - +3 edema of LE Lymphatic: No Cervical, Supraclavicular, or Inguinal Adenopathy Neurological: Cranial nerves II-XII grossly intact, Neuro grossly intact Psych/Mental Status: Appropriate Microbiology Past 72 Hours 01/08/20 15:15 Blood Culture (Wb) - Left Hand Blood Culture - Final No growth in 5 days. 01/08/20 15:21 Blood Culture (Wb) - Right Hand Blood Culture - Final No growth in 5 days. 01/08/20 17:35 Wound - Leg, Right Gram Stain - Final 01/08/20 17:35 Wound - Leg, Right Wound Culture - Final Serratia marcescens Proteus mirabilis Klebsiella oxytoca Corynebacterium striatum 01/08/20 17:35 Wound - Leg, Left Gram Stain - Final 01/08/20 17:35 Wound - Leg, Left Wound Culture - Final Serratia marcescens Proteus mirabilis Klebsiella oxytoca Corynebacterium striatum Laboratory Results 01/09/20 13:08: Total Protein (PEP) Cancelled, Globulin Cancelled, Ur Total Protein 24 Hr 155 H, Urine Total Protein 12.4, Urine Albumin 25.2, U Xrorg-7-Ksglupuf 7.3, U Vjyow-0-Ceozpjkd 21.8, U Beta Globulin 28.5, U Gamma Globulin 17.2, U PEP M-Diego Comment:, U PEP M-Diego 24 Hr TNP, IgG Cancelled, IgA Cancelled, IgM Cancelled, Immunofixation Screen Cancelled, Albumin (DAVID) Cancelled, Albumin/Globulin (DAVID) Cancelled, Atris-3-Kkvmiixjm DAVID Cancelled, Azcik-9-Oznoeelmv DAVID Cancelled, Beta-Globulins (DAVID) Cancelled, Gamma Globulins (DAVID) Cancelled, DAVID M-Diego Cancelled, DAVID Comments Cancelled, DAVID Interpretation Cancelled, Urine Immunofixation Comment, Ur Immunofix PEP Note Comment 01/09/20 13:08: Ur Total Protein 24 Hr 158 H, Urine Total Protein 12.6, Urine Albumin 29.7, U Fyvjz-2-Sumttkua 6.1, U Njnxo-4-Hweuibic 15.3, U Beta Globulin 31.8, U Gamma Globulin 17.2, U PEP M-Diego Not Observed, U PEP M-Diego 24 Hr TNP, Urine PEP Interpret Comment:, Ur Immunofix PEP Note Comment 01/15/20 11:05: POC Glucose 237 H 01/15/20 16:52: POC Glucose 253 H 01/15/20 22:40: POC Glucose 270 H 01/16/20 05:20: Sodium 131 L, Potassium 4.3, Chloride 92 L, Carbon Dioxide 32.0, Anion Gap 7, BUN 70 H, Creatinine 1.65 H, Estim Creat Clear Calc 45.47, Est GFR (MDRD) Af Amer 54 L, Est GFR (MDRD) Non-Af 45 L, BUN/Creatinine Ratio 42.4 H, Glucose 222 H, Calcium 9.7 01/16/20 06:45: POC Glucose 213 H 01/16/20 08:02: POC Glucose 195 H Current Medications Acetaminophen (Tylenol) 650 mg PO Q6H PRN PRN PRN Reason: Pain Score 1-10/Temp > 100.7 F Last Admin: 01/16/20 08:14 Dose: 650 mg Documented by: Al Hydroxide/Mg Hydroxide (Mylanta Ii) 30 ml PO Q6H PRN PRN PRN Reason: Gastric Burning Albuterol Sulfate (Ventolin Aerosols) 2.5 mg INHALATION Q2H PRN PRN PRN Reason: SOB/Wheezing Amiodarone HCl (Cordarone) 200 mg PO BID [facility] Last Admin: 01/16/20 08:12 Dose: 200 mg Documented by: Cefdinir (Omnicef [Equiv]) 300 mg PO Q12 [facility] Last Admin: 01/16/20 08:12 Dose: 300 mg Documented by: Enoxaparin Sodium (Lovenox) 30 mg SC DAILY@0600 [facility] Last Admin: 01/16/20 05:10 Dose: 30 mg Documented by: Furosemide (Lasix) 40 mg IV Q8 [facility] Last Admin: 01/16/20 05:11 Dose: 40 mg Documented by: Guaifenesin (Robitussin) 20 ml PO Q4H PRN PRN PRN Reason: COUGH Hydralazine HCl (Apresoline Iv) 10 mg IV Q4H PRN PRN PRN Reason: Hypertensive Emergency Sodium Chloride () 250 mls @ 15 mls/hr IV .[id number] PRN PRN Reason: Saline Flush Sodium Chloride () 250 mls @ 15 mls/hr IV .[id number] PRN PRN Reason: Additional IVPB Infusion Insulin Glargine (Lantus (Bkc)) 12 units SC BREAKFAST [facility] Last Admin: 01/16/20 08:04 Dose: 12 u Documented by: Insulin Human Lispro (Humalog Kwikpen (Bkc)) 0 unit SC ACHS [facility]; Protocol Last Admin: 01/16/20 06:46 Dose: 4 units Documented by: Lactobacillus Acidophilus (Acidophilus) 1 tablet PO DAILY [facility] Last Admin: 01/16/20 08:12 Dose: 1 tablet Documented by: Magnesium Hydroxide (Milk Of Magnesia) 30 ml PO DAILY PRN PRN PRN Reason: Constipation Melatonin (Melatonin) 3 mg PO QHS PRN PRN PRN Reason: INSOMNIA Metoprolol Tartrate (Lopressor (Beta Emilie)) 25 mg PO BID [facility] Last Admin: 01/16/20 08:12 Dose: 25 mg Documented by: Nitroglycerin (Nitrostat) 0.4 mg SUBLINGUAL Q5M PRN PRN Reason: CARDIAC/CHEST PAIN Oxycodone HCl (Oxyir) 5 mg PO Q4H PRN PRN PRN Reason: Pain Score 4-10/10 Last Admin: 01/16/20 08:15 Dose: 5 mg Documented by: Pantoprazole Sodium (Protonix) 40 mg PO DAILY [facility] Last Admin: 01/16/20 08:13 Dose: 40 mg Documented by: Promethazine HCl (Phenergan) 25 mg IM Q6H PRN PRN PRN Reason: Breakthrough Nausea/Vomiting Sodium Chloride () 10 - 40 ml IV UD PRN PRN Reason: SALINE FLUSH Last Admin: 01/16/20 05:10 Dose: 10 ml Documented by: Medical Necessity - Tobacco Use Smoking Status: Former smoker Assessment/Plan All Active Problems Bilateral cellulitis of lower leg (Acute) Stasis dermatitis of both legs (Acute) Acute systolic (congestive) heart failure (Acute) Acute cholecystitis (Acute) Right upper quadrant abdominal pain (Acute) Abnormal electrocardiogram (Acute) Abnormal echocardiogram (Acute) 1- AUGUSTINE likely CRS. Patient might have elevated pulmonary pressure causing right side hear failure and anasarca UA is benign Kidney function improved with downgrading diuretics and holding valsartan Ok to d/c patient home with Bumex 1 mg TID. Hold ARB at discharge Will arrange for office follow up in 2-3 weeks after discharge to follow kidney Bx that was done last week 2- legs edema from likely right side heart failure. Better. continue diuresis as above 3- Cellulitis . on ABx as per the primary service thank you. Will continue to follow while inpatient d/w ELENA Chinchilla MD [phone]
--- NOTE | 2020-01-16 11:49 | PHA.DC.MC ---
Pharmacy Service has performed discharge medication reconciliation and counseling for this patient. The patient was counseled on the following discharge medications and changes in medications for homegoing were reviewed. The Reason for Use, instructions for use, and potential side effects were reviewed for all new medications. The patient's questions regarding all of their medications were answered. The patient demonstrated some understanding but would benefit from further education and reinforcement. Note: Also reviewed with patient S/S hyper/hypoglycemia and how to properly manage this should this event occur. Home Medications Glimepiride [Amaryl] 4 mg PO DAILY 02/16/17 Amiodarone HCl [Cordarone] 200 mg PO BID #60 tablet 02/21/17 Aspirin [Aspirin, Baby] 81 mg PO DAILY@0800 #30 tab.chew 02/21/17 Lactobacillus Acidophilus [Acidophilus] 1 tablet PO DAILY #30 tablet 02/21/17 Pantoprazole Sodium [Protonix] 40 mg PO DAILY #30 tablet 02/21/17 Acetaminophen [Tylenol Tablet] 650 mg PO Q6H PRN PRN #0 tab 01/16/20 Bumetanide [Bumex] 1 mg PO TID #180 tab 01/16/20 Cefdinir [Omnicef [equiv]] 300 mg PO Q12 #4 cap 01/16/20 Insulin Glargine [Lantus SoloStar Pen] 12 units SUBCUT BREAKFAST #1 pen 01/16/20 Metoprolol Tartrate [Lopressor (beta stephen)] 25 mg PO BID #60 tab 01/16/20 Oxycodone [Oxyir] 5 mg PO Q4H PRN PRN 3 Days #18 tab 01/16/20 Pen Needle, Diabetic [Pen Needle] 1 ea SUBCUT DAILY #30 dis.needle 01/16/20 Potassium Chloride [K-Dur] 20 meq PO DAILYCM #30 tab 01/16/20 The patient's discharge medication list was reviewed for discrepancies and discrepancies were resolved.
[2020-01-16 11:56] LABS: Bedside Glucose 263 mg/dL (70-110)
--- NOTE | 2020-01-16 12:59 | PCM.DC.SUM ---
<Jey Osorio - Last Filed: 01/16/20 13:17> Discharge Date and Diagnosis - Problem List Patient Problems: Active and Suspected Problems Bilateral cellulitis of lower leg (Acute) Stasis dermatitis of both legs (Acute) Date of Admission: 01/08/20 Date of Discharge: 01/16/20 - Primary Discharge Diagnosis Acute Problems: Active Problems BL LE Cellulitis - S marcescens, P mirabilis, K oxytoca, C striatum AUGUSTINE 2/2 cardiorenal syndrome Acute on chronic diastolic CHF Hypervolemic Hyponatremia - Secondary Discharge Diagnosis Chronic Problems: Chronic Problems Systolic CHF, chronic (Chronic) Obesity (BMI 30-39.9) (Chronic) CKD (chronic kidney disease) stage 3, GFR 30-59 ml/min (Chronic) HTN (hypertension) (Chronic) Diabetes mellitus (Chronic) Hospital Course and Treatment Imaging Results: DIAGNOSTICS: US/Kidney and Bladder IMPRESSION: 1.2 cm x 1.4 cm calculus in the lower pole of the right kidney. 2D TTE: Interpretation Summary Normal LV size. Left ventricular systolic function is normal. The estimated ejection fraction is 50 %. Winside : Severely Hypokinetic. Inferior Winside : Hypokinetic The rest of the wall segments are normal. Contrast injection was performed. CT/Biopsy/Inj or Needle Placement IMPRESSION: Successful CT guided percutaneous kidney biopsy. -Pathology pending Consultations 01/08/20 16:49 Consult: Onc/Wound/vp integrity Routine Comment: Nephrology - Hammad Nephrology Operations: None Procedures: 2-D Echocardiogram Summary of Care Provided: Hospital Course: The patient is a 64 year old M past medical history of ischemic cardiomyopathy, systolic congestive heart failure, lower extremity venous stasis, who presented to the emergency room with complaints of bilateral lower extremity edema. He had been taking hydrochlorothiazide, Lasix, metolazone for swelling of his lower extremities with minimal improvement. He had significant excoriations, swelling, malodorous discharge in his lower extremities. He appeared to have a stasis dermatitis with superimposed cellulitis. He was placed on Unasyn and admitted to the PCU. He also appeared to have acute kidney injury felt to be secondary to the diuretics he was on at home. Lasix was provided as there was significant lower extremity edema, and renal ultrasound was ordered, nephrology was consulted. Renal function worsened with diuresis. His wound cultures came back with multiple bacteria that were susceptible to Rocephin, antibiotics were changed to Rocephin. He continued to have decline in his renal function at worst BUN was 117 and creatinine was 4.12. He was significantly hyponatremic and this was felt to be hypervolemic. Echo was obtained showing EF 50%. He also had low BP and his htn agents were adjusted. New diuretic regimen was initiated per nephrology. He had good urinary output and his kidney function began to recover. Immunologic panel was obtained and was negative. Renal biopsy was obtained and is pending at this time. He was kept in the hospital to monitor his urinary output with the heavy doses of Lasix he was getting, however he continued to have good output and improvement in his renal function daily. Wound care was provided and he continues to have some lower extremity edema however this continues to improve. He was transitioned to Omnicef and will complete a total of 10 days of therapy of antibiotics. We arranged for him to have home health care to provide ongoing wound dressing changes at home. We also arranged for him to follow-up with the wound care center as an outpatient - 1 week follow up. He does follow credit relationship manager as an outpatient, advised him to follow-up with him in approximately 1 month. He needs follow up with nephrology in 1-2 weeks. He will need to follow-up his PCP in 1 to 2 weeks. He was discharged home with home health care in stable condition. Other notable changes: HCTZ/ARB discontinued at discharge. Metoprolol decreased at DC due to hypotension. Metformin discontined. Lantus started. Insulin and glucometer training provided. This patient was seen by Jey Osorio PA-C under the supervision of Dr. Tripp. [] Patient Problems: Active and Suspected Problems Bilateral cellulitis of lower leg (Acute) Stasis dermatitis of both legs (Acute) - Physical Exam Vitals/I&O's: Vital Signs Temp Pulse Resp BP Pulse Ox 98.0 F 92 20 H 125/63 H 97 01/16/20 08:20 01/16/20 08:20 01/16/20 08:20 01/16/20 08:20 01/16/20 08:20 Oxygen Flow Rate (L/min) 2 Oxygen Delivery Method [3] Room Air Oxygen Delivery Method [2] Room Air Oxygen Delivery Method [1 ( Room Air Initial Baseline)] Oxygen Delivery Method Room Air Weight: 266 lb 12.149 oz Body Mass Index (BMI) 39.2 Finger Stick Blood Glucose 172 Intake and Output for Last 24 Hours 01/14/20 01/15/20 01/16/20 23:59 23:59 23:59 Intake Total 1290 / 1290 1200 / 1440 720 / 720 Output Total 2425 / 2425 1925 / 2175 1050 / 1050 Balance -1135 / -1135 -725 / -735 -330 / -330 General: Alert, Oriented x3, Cooperative HEENT: Atraumatic, PERRLA, EOMI, Normocephalic Neck: Supple, No JVD, Negative Carotid Bruits Lungs: Clear to auscultation, Normal air movement Cardiovascular: Regular rate, No murmurs Abdomen: Bowel Sounds Present, Soft, Non Tender Extremities: Capillary Refill Less than 3 Seconds, Edema - LE edema, stasis dermatitis. Skin: No rashes, No breakdown Musculoskeletal: No Tenderness to Palpation of Joints or Extremities Neurological: Cranial nerves II-XII grossly intact Psych/Mental Status: Normal Affect, Appropriate Microbiology Past 72 Hours 01/08/20 15:15 Blood Culture (Wb) - Left Hand Blood Culture - Final No growth in 5 days. 01/08/20 15:21 Blood Culture (Wb) - Right Hand Blood Culture - Final No growth in 5 days. Laboratory Results 01/09/20 13:08: Total Protein (PEP) Cancelled, Globulin Cancelled, Ur Total Protein 24 Hr 155 H, Urine Total Protein 12.4, Urine Albumin 25.2, U Tpvfm-6-Jvwxoqlo 7.3, U Xdpfe-9-Jqvquxtv 21.8, U Beta Globulin 28.5, U Gamma Globulin 17.2, U PEP M-Diego Comment:, U PEP M-Diego 24 Hr TNP, IgG Cancelled, IgA Cancelled, IgM Cancelled, Immunofixation Screen Cancelled, Albumin (DAVID) Cancelled, Albumin/Globulin (DAVID) Cancelled, Fnnmt-7-Lkvrqvitg DAVID Cancelled, Pzzzx-3-Jmdbloknl DAVID Cancelled, Beta-Globulins (DAVID) Cancelled, Gamma Globulins (DAVID) Cancelled, DAVID M-Diego Cancelled, DAVID Comments Cancelled, DAVID Interpretation Cancelled, Urine Immunofixation Comment, Ur Immunofix PEP Note Comment 01/09/20 13:08: Ur Total Protein 24 Hr 158 H, Urine Total Protein 12.6, Urine Albumin 29.7, U Lbibs-1-Ffsnxkcr 6.1, U Aarpi-6-Tuuhfdlf 15.3, U Beta Globulin 31.8, U Gamma Globulin 17.2, U PEP M-Diego Not Observed, U PEP M-Diego 24 Hr TNP, Urine PEP Interpret Comment:, Ur Immunofix PEP Note Comment 01/15/20 16:52: POC Glucose 253 H 01/15/20 22:40: POC Glucose 270 H 01/16/20 05:20: Sodium 131 L, Potassium 4.3, Chloride 92 L, Carbon Dioxide 32.0, Anion Gap 7, BUN 70 H, Creatinine 1.65 H, Estim Creat Clear Calc 45.47, Est GFR (MDRD) Af Amer 54 L, Est GFR (MDRD) Non-Af 45 L, BUN/Creatinine Ratio 42.4 H, Glucose 222 H, Calcium 9.7 01/16/20 06:45: POC Glucose 213 H 01/16/20 08:02: POC Glucose 195 H 01/16/20 11:38: POC Glucose 263 H Current Medications Acetaminophen (Tylenol) 650 mg PO Q6H PRN PRN PRN Reason: Pain Score 1-10/Temp > 100.7 F Last Admin: 01/16/20 08:14 Dose: 650 mg Documented by: Al Hydroxide/Mg Hydroxide (Mylanta Ii) 30 ml PO Q6H PRN PRN PRN Reason: Gastric Burning Albuterol Sulfate (Ventolin Aerosols) 2.5 mg INHALATION Q2H PRN PRN PRN Reason: SOB/Wheezing Amiodarone HCl (Cordarone) 200 mg PO BID [facility] Last Admin: 01/16/20 08:12 Dose: 200 mg Documented by: Cefdinir (Omnicef [Equiv]) 300 mg PO Q12 [facility] Last Admin: 01/16/20 08:12 Dose: 300 mg Documented by: Enoxaparin Sodium (Lovenox) 30 mg SC DAILY@0600 [facility] Last Admin: 01/16/20 05:10 Dose: 30 mg Documented by: Furosemide (Lasix) 40 mg IV Q8 [facility] Last Admin: 01/16/20 05:11 Dose: 40 mg Documented by: Guaifenesin (Robitussin) 20 ml PO Q4H PRN PRN PRN Reason: COUGH Hydralazine HCl (Apresoline Iv) 10 mg IV Q4H PRN PRN PRN Reason: Hypertensive Emergency Sodium Chloride () 250 mls @ 15 mls/hr IV .[id number] PRN PRN Reason: Saline Flush Sodium Chloride () 250 mls @ 15 mls/hr IV .[id number] PRN PRN Reason: Additional IVPB Infusion Insulin Glargine (Lantus (Bk)) 12 units SC BREAKFAST [facility] Last Admin: 01/16/20 08:04 Dose: 12 u Documented by: Insulin Human Lispro (Humalog Kwikpen ([facility])) 0 unit SC ACHS [facility]; Protocol Last Admin: 01/16/20 11:39 Dose: 6 units Documented by: Lactobacillus Acidophilus (Acidophilus) 1 tablet PO DAILY [facility] Last Admin: 01/16/20 08:12 Dose: 1 tablet Documented by: Magnesium Hydroxide (Milk Of Magnesia) 30 ml PO DAILY PRN PRN PRN Reason: Constipation Melatonin (Melatonin) 3 mg PO QHS PRN PRN PRN Reason: INSOMNIA Metoprolol Tartrate (Lopressor (Beta Emilie)) 25 mg PO BID [facility] Last Admin: 01/16/20 08:12 Dose: 25 mg Documented by: Nitroglycerin (Nitrostat) 0.4 mg SUBLINGUAL Q5M PRN PRN Reason: CARDIAC/CHEST PAIN Oxycodone HCl (Oxyir) 5 mg PO Q4H PRN PRN PRN Reason: Pain Score 4-10/10 Last Admin: 01/16/20 08:15 Dose: 5 mg Documented by: Pantoprazole Sodium (Protonix) 40 mg PO DAILY [facility] Last Admin: 01/16/20 08:13 Dose: 40 mg Documented by: Promethazine HCl (Phenergan) 25 mg IM Q6H PRN PRN PRN Reason: Breakthrough Nausea/Vomiting Sodium Chloride () 10 - 40 ml IV UD PRN PRN Reason: SALINE FLUSH Last Admin: 01/16/20 05:10 Dose: 10 ml Documented by: Discharge Diet: Low fat/ Low Cholesterol, 1800 Calorie Control Diet, 2000 mg Sodium Diet Discharge Activity: Return to Normal Activity Home Medications: Medications to take at Discharge Glimepiride [Amaryl] 4 mg PO DAILY 02/16/17 Amiodarone HCl [Cordarone] 200 mg PO BID #60 tablet 02/21/17 Aspirin [Aspirin, Baby] 81 mg PO DAILY@0800 #30 tab.chew 02/21/17 Lactobacillus Acidophilus [Acidophilus] 1 tablet PO DAILY #30 tablet 02/21/17 Pantoprazole Sodium [Protonix] 40 mg PO DAILY #30 tablet 02/21/17 Acetaminophen [Tylenol Tablet] 650 mg PO Q6H PRN PRN #0 tab 01/16/20 Bumetanide [Bumex] 1 mg PO TID #180 tab 01/16/20 Cefdinir [Omnicef [equiv]] 300 mg PO Q12 #4 cap 01/16/20 Insulin Glargine [Lantus SoloStar Pen] 12 units SUBCUT BREAKFAST #1 pen 01/16/20 Metoprolol Tartrate [Lopressor (beta emilie)] 25 mg PO BID #60 tab 01/16/20 Oxycodone [Oxyir] 5 mg PO Q4H PRN PRN 3 Days #18 tab 01/16/20 Pen Needle, Diabetic [Pen Needle] 1 ea SUBCUT DAILY #30 dis.needle 01/16/20 Potassium Chloride [K-Dur] 20 meq PO DAILYCM #30 tab 01/16/20 Bad tableOther Amb Orders: Glucometer Location: None Selected Primary Care Physician: Sahy Chin MD [Primary Care Provider] - Please follow up with your Primary Care Physician in: 1-2 weeks Please Follow Up With: Mark Contreras MD When: 2 weeks Please Follow Up With: Wound care center When: this week Please Follow Up With: Deep Norman DPM When: 4 weeks Please Follow Up With: Sahy Chin MD Patient Instructions: Kidney Biopsy, ED Procedural Sedation, (Adult) Disposition: Home with Home Health Minutes spent on discharge:: 35 Patient Condition:: Stable Medical Necessity - Tobacco Use Smoking Status: Former smoker Meaningful Use Info Meaningful Use Diagnoses (Choose all that apply): None applicable <Iván Tripp - Last Filed: 01/16/20 14:26> Discharge Date and Diagnosis - Primary Discharge Diagnosis Acute Problems: Active Problems Bilateral cellulitis of lower leg (Acute) Stasis dermatitis of both legs (Acute) - Secondary Discharge Diagnosis Chronic Problems: Chronic Problems Systolic CHF, chronic (Chronic) Obesity (BMI 30-39.9) (Chronic) CKD (chronic kidney disease) stage 3, GFR 30-59 ml/min (Chronic) HTN (hypertension) (Chronic) Diabetes mellitus (Chronic) Hospital Course and Treatment Consultations 01/08/20 16:49 Consult: Onc/Wound/vp integrity Routine Comment: Operations: None Procedures: 2-D Echocardiogram Summary of Care Provided: Patient seen and examined independently. Data reviewed. I agree with the above note by the physician assistant finance manager. The patient is a 64 year old M complains of lower extremity edema and pain. Patient was hospitalized and was found to have erythema both lower extremities. Patient been applying an ointment and and a cultures grew out Serratia, Proteus and Klebsiella. Patient was on ceftriaxone during hospitalization and then will be discharged with Keflex. Patient has profound venous stasis. Related stephanie-pulmonary complaints. Patient was diuresed and then his creatinine got worse. Nephrology was consulted and ordered a battery of autoimmune studies, which also came back negative. Kidney biopsy was recommended and performed, results of which are pending. In the meantime, patient's creatinine has since normalized or nearly normalized. Patient was restarted on furosemide and was diuresing. Patient will be discharged with Bumex. Patient advised to follow-up with nephrology as outpatient for further monitoring of kidney function but also for the results of the kidney biopsy. For the patient's lower extremity wounds, patient will continue to follow-up with wound care. Initiated due to his chronic venous stasis. [] - Physical Exam Vitals/I&O's: Vital Signs Temp Pulse Resp BP Pulse Ox 36.7 C 92 20 H 125/63 H 97 01/16/20 08:20 01/16/20 08:20 01/16/20 08:20 01/16/20 08:20 01/16/20 08:20 Oxygen Flow Rate (L/min) 2 Oxygen Delivery Method [3] Room Air Oxygen Delivery Method [2] Room Air Oxygen Delivery Method [1 ( Room Air Initial Baseline)] Oxygen Delivery Method Room Air Weight: 121 kg Body Mass Index (BMI) 39.2 Finger Stick Blood Glucose 172 Intake and Output for Last 24 Hours 01/14/20 01/15/20 01/16/20 23:59 23:59 23:59 Intake Total 1290 / 1290 1200 / 1440 720 / 720 Output Total 2425 / 2425 1925 / 2175 1050 / 1050 Balance -1135 / -1135 -725 / -735 -330 / -330 General: Alert, Cooperative HEENT: Atraumatic, Normocephalic Lungs: Clear to auscultation, Normal air movement Extremities: Edema Microbiology Past 72 Hours 01/08/20 15:15 Blood Culture (Wb) - Left Hand Blood Culture - Final No growth in 5 days. 01/08/20 15:21 Blood Culture (Wb) - Right Hand Blood Culture - Final No growth in 5 days. Laboratory Results 01/09/20 13:08: Total Protein (PEP) Cancelled, Globulin Cancelled, Ur Total Protein 24 Hr 155 H, Urine Total Protein 12.4, Urine Albumin 25.2, U Rgeto-4-Zojeouuy 7.3, U Yvjpk-8-Gegbkugq 21.8, U Beta Globulin 28.5, U Gamma Globulin 17.2, U PEP M-Diego Comment:, U PEP M-Diego 24 Hr TNP, IgG Cancelled, IgA Cancelled, IgM Cancelled, Immunofixation Screen Cancelled, Albumin (DAVID) Cancelled, Albumin/Globulin (DAVID) Cancelled, Mknia-5-Xmyadyroh DAVID Cancelled, Ipmrw-9-Dpafomnpz DAVID Cancelled, Beta-Globulins (DAVID) Cancelled, Gamma Globulins (DAVID) Cancelled, DAVID M-Diego Cancelled, DAVID Comments Cancelled, DAVID Interpretation Cancelled, Urine Immunofixation Comment, Ur Immunofix PEP Note Comment 01/09/20 13:08: Ur Total Protein 24 Hr 158 H, Urine Total Protein 12.6, Urine Albumin 29.7, U Rongo-8-Coxqrzyd 6.1, U Wfwtk-2-Bzsvnbgp 15.3, U Beta Globulin 31.8, U Gamma Globulin 17.2, U PEP M-Diego Not Observed, U PEP M-Diego 24 Hr TNP, Urine PEP Interpret Comment:, Ur Immunofix PEP Note Comment 01/15/20 16:52: POC Glucose 253 H 01/15/20 22:40: POC Glucose 270 H 01/16/20 05:20: Sodium 131 L, Potassium 4.3, Chloride 92 L, Carbon Dioxide 32.0, Anion Gap 7, BUN 70 H, Creatinine 1.65 H, Estim Creat Clear Calc 45.47, Est GFR (MDRD) Af Amer 54 L, Est GFR (MDRD) Non-Af 45 L, BUN/Creatinine Ratio 42.4 H, Glucose 222 H, Calcium 9.7 01/16/20 06:45: POC Glucose 213 H 01/16/20 08:02: POC Glucose 195 H 01/16/20 11:38: POC Glucose 263 H Current Medications Acetaminophen (Tylenol) 650 mg PO Q6H PRN PRN PRN Reason: Pain Score 1-10/Temp > 100.7 F Last Admin: 01/16/20 08:14 Dose: 650 mg Documented by: Al Hydroxide/Mg Hydroxide (Mylanta Ii) 30 ml PO Q6H PRN PRN PRN Reason: Gastric Burning Albuterol Sulfate (Ventolin Aerosols) 2.5 mg INHALATION Q2H PRN PRN PRN Reason: SOB/Wheezing Amiodarone HCl (Cordarone) 200 mg PO BID [facility] Last Admin: 01/16/20 08:12 Dose: 200 mg Documented by: Cefdinir (Omnicef [Equiv]) 300 mg PO Q12 [facility] Last Admin: 01/16/20 08:12 Dose: 300 mg Documented by: Enoxaparin Sodium (Lovenox) 30 mg SC DAILY@0600 [facility] Last Admin: 01/16/20 05:10 Dose: 30 mg Documented by: Furosemide (Lasix) 40 mg IV Q8 [facility] Last Admin: 01/16/20 05:11 Dose: 40 mg Documented by: Guaifenesin (Robitussin) 20 ml PO Q4H PRN PRN PRN Reason: COUGH Hydralazine HCl (Apresoline Iv) 10 mg IV Q4H PRN PRN PRN Reason: Hypertensive Emergency Sodium Chloride () 250 mls @ 15 mls/hr IV .[id number] PRN PRN Reason: Saline Flush Sodium Chloride () 250 mls @ 15 mls/hr IV .[id number] PRN PRN Reason: Additional IVPB Infusion Insulin Glargine (Lantus ([facility])) 12 units SC BREAKFAST [facility] Last Admin: 01/16/20 08:04 Dose: 12 u Documented by: Insulin Human Lispro (Humalog Kwikpen ([facility])) 0 unit SC ACHS [facility]; Protocol Last Admin: 01/16/20 11:39 Dose: 6 units Documented by: Lactobacillus Acidophilus (Acidophilus) 1 tablet PO DAILY [facility] Last Admin: 01/16/20 08:12 Dose: 1 tablet Documented by: Magnesium Hydroxide (Milk Of Magnesia) 30 ml PO DAILY PRN PRN PRN Reason: Constipation Melatonin (Melatonin) 3 mg PO QHS PRN PRN PRN Reason: INSOMNIA Metoprolol Tartrate (Lopressor (Beta Emilie)) 25 mg PO BID [facility] Last Admin: 01/16/20 08:12 Dose: 25 mg Documented by: Nitroglycerin (Nitrostat) 0.4 mg SUBLINGUAL Q5M PRN PRN Reason: CARDIAC/CHEST PAIN Oxycodone HCl (Oxyir) 5 mg PO Q4H PRN PRN PRN Reason: Pain Score 4-10/10 Last Admin: 01/16/20 08:15 Dose: 5 mg Documented by: Pantoprazole Sodium (Protonix) 40 mg PO DAILY [facility] Last Admin: 01/16/20 08:13 Dose: 40 mg Documented by: Promethazine HCl (Phenergan) 25 mg IM Q6H PRN PRN PRN Reason: Breakthrough Nausea/Vomiting Sodium Chloride () 10 - 40 ml IV UD PRN PRN Reason: SALINE FLUSH Last Admin: 01/16/20 05:10 Dose: 10 ml Documented by: Discharge Diet: Low fat/ Low Cholesterol, 1800 Calorie Control Diet, 2000 mg Sodium Diet Discharge Activity: Return to Normal Activity Disposition: Home with Home Health Minutes spent on discharge:: 35 Patient Condition:: Stable Medical Necessity - Tobacco Use Smoking Status: Former smoker Meaningful Use Info Meaningful Use Diagnoses (Choose all that apply): None applicable Inpatient E&M: 02449 Disch Hosp
--- NOTE | 2020-01-17 15:22 | CASEMGMT ---
PATRICK PHAM Discharge F/U Phone Call LACJohn: 13 Strata: 3 Discharge date: 01/16/2020 Call date: 01/17/2020 Call time: [id number] Admission dx: Cellulitis, dermatitis Pt states has been 'not too bad' since discharge. Pt states that [facility] was out this am and 'got me all straightened out.' Pt states no questions regarding discharge instructions or medications at this time. Pt states that he was not aware that f/u appts were made and this RN CM advised him to look at discharge instructions and that 3 of four f/u appt's were made prior to discharge, voices understanding. This RN ANKIT then went over appt's with pt at this time, voices understanding. Julia at [facility] also updated to have SN go over/remind pt of appts as well, voices understanding. Pt voices no suggestions for [facility] at this time. Pt voices no further questions/concerns/needs at this time. [place] RN ANKIT
== END 2020-01-16 15:30 | disposition home health service (06) | DRG 682 ==
LOC: ED 15:22 → PCU 16:24
PROVIDERS: Internal Medicine; Internal Medicine Nephrology; Nurse Practitioner Family; Physician Assistant; Admitting Provider Internal Medicine; Emergency Provider Emergency Medicine; PCP Family Medicine
DX: N17.9 Acute kidney failure, unspecified (principal); I50.23 Acute on chronic systolic (congestive) heart failure; L03.115 Cellulitis of right lower limb; I13.0 Hypertensive heart and chronic kidney disease with heart failure and stage 1 through stage 4 chronic kidney disease, or unspecified chronic kidney disease; E87.1 Hypo-osmolality and hyponatremia; I42.9 Cardiomyopathy, unspecified; L03.116 Cellulitis of left lower limb; N26.9 Renal sclerosis, unspecified; N15.9 Renal tubulo-interstitial disease, unspecified; I87.2 Venous insufficiency (chronic) (peripheral); E11.22 Type 2 diabetes mellitus with diabetic chronic kidney disease; N18.3 Chronic kidney disease, stage 3 (moderate); I25.10 Atherosclerotic heart disease of native coronary artery without angina pectoris; Z79.84 Long term (current) use of oral hypoglycemic drugs; Z79.899 Other long term (current) drug therapy; Z87.891 Personal history of nicotine dependence; E66.01 Morbid (severe) obesity due to excess calories; Z68.39 Body mass index [BMI] 39.0-39.9, adult; N20.0 Calculus of kidney; I87.8 Other specified disorders of veins; K21.9 Gastro-esophageal reflux disease without esophagitis; B95.61 Methicillin susceptible Staphylococcus aureus infection as the cause of diseases classified elsewhere; B96.4 Proteus (mirabilis) (morganii) as the cause of diseases classified elsewhere; R21 Rash and other nonspecific skin eruption; B96.1 Klebsiella pneumoniae [K. pneumoniae] as the cause of diseases classified elsewhere; B96.89 Other specified bacterial agents as the cause of diseases classified elsewhere; D64.9 Anemia, unspecified; T50.2X5A Adverse effect of carbonic-anhydrase inhibitors, benzothiadiazides and other diuretics, initial encounter
CPT/HCPCS: 36415; 76770; 77012; 80048; 81001; 81050; 82570; 82784; 82962; 83520; 83540; 83550; 83605; 83735; 84156; 84165; 84166; 84300; 84443; 85025; 85027; 85610; 85730; 86038; 86160; 86225; 86235; 86256; 86334; 86335; 86592; 87040; 87070; 87077; 87186; 87205; 87640; 88305; 88313; 88346; 88348; 88350; 93306; 97116; 97162; 97166; 97530; 97802; 99251; 99285; J7040; Q9957; A4216; C8929; G0463; J0295; J1940

== ENCOUNTER 2020-01-30 15:35 | Outpatient (RCR) | payer MEDICARE, SELFPAY ==
[2020-01-26 10:27] VITALS: BMI 36.1
[2020-01-30 16:38] LABS: Anion Gap 4 (5-15); BUN 28 mg/dL (7-18); BUN/Creat Ratio 17.7 RATIO (10-20); Calcium,Total 9.1 mg/dL (8.5-10.1); Chloride 101 mmol/L (98-107); Creatinine, Serum 1.58 mg/dL (0.70-1.30); EST Glomerular Filtration Rate 47 mL/min (>60); Est Glom Filt Rate - Afr Amer 57 mL/min (>60); Glucose 77 mg/dL (74-106); Potassium 3.3 mmol/L (3.5-5.1); Sodium Level 139 mmol/L (136-145)
== END 2020-01-30 18:00 | disposition home or self-care (01) ==
LOC: HHLAB 15:35
PROVIDERS: PCP Family Medicine; Referring Provider Internal Medicine Nephrology; Visit Provider Internal Medicine Nephrology
DX: N17.9 Acute kidney failure, unspecified (principal)
CPT/HCPCS: 80048

== ENCOUNTER 2020-02-23 09:15 | Outpatient (RCR) | payer MEDICARE, BC, SELFPAY ==
[2020-01-13 09:05] VITALS: BMI 39.2
[2020-01-26 10:27] VITALS: BP 123/62; PULSE 78; RESP 16; TEMP 36.4; BMI 36.1
[2020-01-26 11:58] VITALS: BP 125/62; PULSE 80; RESP 18
--- NOTE | 2020-01-26 12:44 | PCM.WC.HP ---
(1) Ulcer of left lower extremity with fat layer exposed Status: Chronic Current Visit: Yes Code(s): L97.922 - Non-pressure chronic ulcer of unspecified part of left lower leg with fat layer exposed (2) Ulcer of right lower extremity with fat layer exposed Status: Chronic Current Visit: Yes Code(s): L97.912 - Non-pressure chronic ulcer of unspecified part of right lower leg with fat layer exposed (3) Type 2 diabetes mellitus Status: Chronic Current Visit: Yes Code(s): E11.9 - Type 2 diabetes mellitus without complications (4) Bilateral lower extremity edema Status: Chronic Current Visit: Yes Code(s): R60.0 - Localized edema (5) Bilateral cellulitis of lower leg Status: Acute Current Visit: Yes Code(s): L03.116 - Cellulitis of left lower limb; L03.115 - Cellulitis of right lower limb (6) Stasis dermatitis of both legs Status: Chronic Current Visit: Yes Code(s): I87.2 - Venous insufficiency (chronic) (peripheral) (7) CKD (chronic kidney disease) stage 3, GFR 30-59 ml/min Status: Chronic Current Visit: Yes Code(s): N18.3 - Chronic kidney disease, stage 3 (moderate) History of Present Illness Date of Service: 01/26/20 Chief Complaint: Nonhealing bilateral leg ulcers History of Wound: Mr. Garcia is a 64-year-old who was referred to the wound center due to nonhealing bilateral leg ulcers. Had presented to the emergency room at [facility] on the 05 of January due to significant bilateral lower extremity pain and redness. Managed for bilateral leg cellulitis. Discharged on the . Ulcers have been managed at home by home health. Was on Omnicef at discharge. Still reports significant predominantly left lower extremity pain. Edema is persistent. History of diabetes mellitus type 2 which is not well controlled, fasting blood glucose this morning said to be 178. He denies chills, fever, nausea or vomiting. Past Medical History Past Medical History: Chronic Problems Stasis dermatitis of both legs (Chronic) Systolic CHF, chronic (Chronic) Obesity (BMI 30-39.9) (Chronic) CKD (chronic kidney disease) stage 3, GFR 30-59 ml/min (Chronic) Ulcer of left lower extremity with fat layer exposed (Chronic) Ulcer of right lower extremity with fat layer exposed (Chronic) Type 2 diabetes mellitus (Chronic) Bilateral lower extremity edema (Chronic) HTN (hypertension) (Chronic) Diabetes mellitus (Chronic) Surgical History: cholecystectomy, - - Surgery for trauma to the left arm (fracture) with orthopedic plate inserted Allergies/Adverse Reactions: Allergies tramadol Allergy (Verified 01/26/20 11:00) Rash Home Medications: Ambulatory Orders Medication Instructions Recorded Amiodarone HCl [Cordarone] 200 mg PO BID #60 tablet 02/21/17 Aspirin [Aspirin, Baby] 81 mg PO DAILY@0800 #30 tab.chew 02/21/17 Pantoprazole Sodium [Protonix] 40 mg PO DAILY #30 tablet 02/21/17 Acetaminophen [Tylenol Tablet] 650 mg PO Q6H PRN PRN #0 tab 01/16/20 Bumetanide [Bumex] 1 mg PO TID #180 tab 01/16/20 Insulin NPH Human Isophane 6 unit SQ BID #1 vial 01/16/20 [Humulin N] Metoprolol Tartrate [Lopressor 25 mg PO BID #60 tab 01/16/20 (beta stephen)] Pen Needle, Diabetic [Pen Needle] 1 ea SUBCUT DAILY #30 dis.needle 01/16/20 Potassium Chloride [K-Dur] 20 meq PO DAILYCM #30 tab 01/16/20 Lactobacillus Acidophilus 1 tab PO BID 01/26/20 [Acidophilus] - Family History Maternal - - of pneumonia Paternal Heart Disease - [place] at age 71 Sibling Heart Disease - [place] at 55 Smoking Status: Former smoker Review of Systems Constitutional: Denies: Anorexia, Chills, Fever Eyes: Denies: Blurred vision, Pain, Redness HEENT: Denies: Difficulty Hearing, Difficulty Swallowing, Head Aches Cardiovascular: Denies: Chest Pain, Claudication, Chest Pressure Respiratory: Denies: Cough, Hemoptysis, Pleuritic Pain Gastrointestinal: Denies: Abdominal Pain, Hematemesis, Vomiting Skin: Denies: Jaundice - Physical Exam Vital Signs Temp Pulse Resp BP 97.5 F L 80 18 125/62 H 01/26/20 10:27 01/26/20 11:58 01/26/20 11:58 01/26/20 11:58 General: Alert, Oriented x3, Cooperative, No apparent distress HEENT: Atraumatic, Normocephalic Oral: Moist Mucosa Neck: Supple Lungs: Normal air movement Cardiovascular: Regular rate, Regular Rhythm, Normal S1, Normal S2 Abdomen: Non Tender, Obese Extremities: No cyanosis, Edema Skin: Ulcer/ Wound Wound Measurements and Assessment WC - Nurse 1 - General Ulcer Measurement Start: 01/26/20 10:27 Freq: Status: Active Protocol: Activity Type Activity Date Activity User E-Sign Co-Sign Detail Recorded Client Recorded Date Recorded By Document 01/26/20 10:27 [facility] [id number] 01/26/20 10:58 [facility] 01/26/20 10:27 Wound Center Nurse 1 [Ulcer Assessment] #2- LLE CIRCUMFERENTIAL -Combined with other wound No -Current Size (cm) - Length 30.5 -Current Size (cm) - Width 45.6 -Current Size (cm) - Depth 0.2 -Total Square Cm 1390.80 -Date of Last Picture (Recall this 01/26/20 field) -Photo Taken Yes -Epithelialization None Present -Tunneling No -Undermining/Tunneling No -Circular Undermining No -Exudate Amt Large -Exudate Type Serous -Wound Margin Distinct, Outline Attached -Granulation Amt Medium (34-66%) -Granulation Quality Red -Slough/Fibrin Yes -Necrosis Amt Large (67-100%) -Necrotic Tissue Type Adherent Slough -Texture (Reina-wound Skin Appearance) Assessed, Excoriation, Scarring -Moisture (Reina-wound Skin Appearance Assessed, ) Maceration, Weeping,Dry/ Scaly -Color (Reina-wound Skin Appearance) Assessed, Erythema,Palor -Temperature (Reina-wound Skin No Abnormality Appearance) (Pt Warm) -Tenderness on Palpation (Reina-wound Yes Skin Appearance) -Ulcer Cleansing SOAPY WATER -Foul Odor after Cleansing No -Anesthetic Used 4% Lidocaine Solution #1- R LATERL LE -Combined with other wound No -Current Size (cm) - Length 38.5 -Current Size (cm) - Width 46.9 -Current Size (cm) - Depth 0.1 -Total Square Cm 1805.65 -Date of Last Picture (Recall this 01/26/20 field) -Photo Taken Yes -Epithelialization None Present -Tunneling No -Undermining/Tunneling No -Circular Undermining No -Exudate Amt Large -Exudate Type Serous -Wound Margin Distinct, Outline Attached -Granulation Amt Medium (34-66%) -Granulation Quality Red -Slough/Fibrin Yes -Necrosis Amt Large (67-100%) -Necrotic Tissue Type Adherent Slough -Texture (Reina-wound Skin Appearance) Assessed, Excoriation, Scarring -Moisture (Reina-wound Skin Appearance Assessed, ) Maceration,Dry/ Scaly -Color (Reina-wound Skin Appearance) Assessed, Erythema,Palor -Temperature (Reina-wound Skin No Abnormality Appearance) (Pt Warm) -Tenderness on Palpation (Reina-wound Yes Skin Appearance) -Ulcer Cleansing SOAPY WATER -Foul Odor after Cleansing No -Anesthetic Used 4% Lidocaine Solution [Edema Assessment] -Lower Limb Edema Present Yes -Right Calf (cm) 48.6 -Right Ankle (cm) 31.5 -Left Calf (cm) 48.6 -Left Ankle (cm) 29.6 WC - Nurse 2 - General Ulcer CM Notes Start: 01/26/20 10:27 Freq: Status: Active Protocol: Activity Type Activity Date Activity User E-Sign Co-Sign Detail Recorded Client Recorded Date Recorded By Document 01/26/20 11:17 MW [id number] 01/26/20 11:29 MW 01/26/20 11:17 Wound Center Nurse 2 [Procedure/Treatment] #2- LLE CIRCUMFERENTIAL -Time 11:18 -Correct Patient Yes -Correct Side, Site, Position Yes -Correct Procedure Yes -Procedure Performed Yes -Type of Procedure Debridement -Clinical Debridement Subcutaneous -Tissue Removed Subcutaneous -Post Debridement (cm) - Length 20.0 -Post Debridement (cm) - Width 37.0 -Post Debridement (cm) - Depth 0.1 -Total Square (Post) (cm) 740.00 -Area of Debridement (cm) - Length 20.0 -Area of Debridement (cm) - Width 37.0 -Total Square (Area) (cm) 740.00 -Tunneling No -Undermining/Tunneling No -Circular Undermining No -Wound/Ulcer Outcome Not Healed -Ulcer Cleansing Rinsed/ Irrigated with Saline -Foul Odor after Cleansing No -Bioengineered Tissue No -Bleeding Controlled with Pressure -Offloading No -Treatment Response Procedure Tolerated Well -Debridement - Subq, 1st 20sq cm Yes -Debridement, SubQ, ea addt'l 20sq cm 11 or part thereof #1- R LATERL LE -Time 11:19 -Correct Patient Yes -Correct Side, Site, Position Yes -Correct Procedure Yes -Procedure Performed Yes -Type of Procedure Debridement -Clinical Debridement Subcutaneous -Tissue Removed Subcutaneous -Post Debridement (cm) - Length 7.0 -Post Debridement (cm) - Width 8.5 -Post Debridement (cm) - Depth 0.1 -Total Square (Post) (cm) 59.50 -Area of Debridement (cm) - Length 7.0 -Area of Debridement (cm) - Width 8.5 -Total Square (Area) (cm) 59.50 -Tunneling No -Undermining/Tunneling No -Circular Undermining No -Wound/Ulcer Outcome Not Healed -Ulcer Cleansing Rinsed/ Irrigated with Saline -Foul Odor after Cleansing No -Bioengineered Tissue No -Bleeding Controlled with Pressure -Offloading No -Treatment Response Procedure Tolerated Well -Debridement - Subq, 1st 20sq cm No -Debridement, SubQ, ea addt'l 20sq cm 2 or part thereof [See Physician Procedure note for Specifics] Pain Scale: 0-10 Numeric [Pain] -Is Patient Pain Free? Yes WC - Nurse 3 - General Ulcer D/C NN Start: 01/26/20 10:27 Freq: Status: Active Protocol: Activity Type Activity Date Activity User E-Sign Co-Sign Detail Recorded Client Recorded Date Recorded By Document 01/26/20 11:58 [facility] [id number] 01/26/20 12:00 [facility] 01/26/20 11:58 Wound Care Nurse 3 [Wound Dressing] #2- LLE CIRCUMFERENTIAL -Ulcer Cleansing Rinsed/ Irrigated with Saline -Foul Odor after Cleansing No -Primary Dressing Applied NonAdherent Contact Layer -Other Dressing xeroform, hydrogel -Primary Dressing Covered/Secured Dry Gauze & with Roll Gauze, Secured with Tape,Other -Other Covering abd #1- R LATERL LE -Ulcer Cleansing Rinsed/ Irrigated with Saline -Foul Odor after Cleansing No -Primary Dressing Applied NonAdherent Contact Layer -Primary Dressing Covered/Secured Dry Gauze & with Roll Gauze, Secured with Tape,Other -Other Covering abd [Compression Applied] Right -Compression Wrap Julio Cesar Wrap Left -Compression Wrap Julio Cesar Wrap [Post Procedure Tolerated] -Treatment Response Procedure Tolerated Well Vital Signs [Pulse] -Pulse Rate (60-100 beats/min) 80 -Pulse Location Monitor [Respirations] -Respiratory Rate (12-18 breaths/min) 18 -Respiratory rate source Monitor [Blood Pressure] -Blood Pressure (90/60-120/80 mm Hg) 125/62 H -Blood Pressure Mean (mm Hg) 83 -Source Monitor -Position Sitting -Blood Pressure Location Left Arm Pain Scale: 0-10 Numeric [Pain] -Is Patient Pain Free? Yes WC - Visit Discharge [Visit Discharge Information] -Discharge Condition Stable -Ambulatory Status Ambulatory,Cane -Transportation Private Auto [Facility Notification] -Facility Type Home Health Musculoskeletal: No Muscle Wasting Neurological: Cranial nerves II-XII grossly intact Psych/Mental Status: Normal Affect Debridement Note Post-Debridement Measurements/Treatment WC - Nurse 2 - General Ulcer CM Notes Start: 01/26/20 10:27 Freq: Status: Active Protocol: Activity Type Activity Date Activity User E-Sign Co-Sign Detail Recorded Client Recorded Date Recorded By Document 01/26/20 11:17 MW [id number] 01/26/20 11:29 MW 01/26/20 11:17 Wound Center Nurse 2 #2- LLE CIRCUMFERENTIAL -Time 11:18 -Correct Patient Yes -Correct Side, Site, Position Yes -Correct Procedure Yes -Procedure Performed Yes -Type of Procedure Debridement -Clinical Debridement Subcutaneous -Tissue Removed Subcutaneous -Post Debridement (cm) - Length 20.0 -Post Debridement (cm) - Width 37.0 -Post Debridement (cm) - Depth 0.1 -Total Square (Post) (cm) 740.00 -Area of Debridement (cm) - Length 20.0 -Area of Debridement (cm) - Width 37.0 -Total Square (Area) (cm) 740.00 -Tunneling No -Undermining/Tunneling No -Circular Undermining No -Wound/Ulcer Outcome Not Healed -Ulcer Cleansing Rinsed/ Irrigated with Saline -Foul Odor after Cleansing No -Bioengineered Tissue No -Bleeding Controlled with Pressure -Offloading No -Treatment Response Procedure Tolerated Well -Debridement - Subq, 1st 20sq cm Yes -Debridement, SubQ, ea addt'l 20sq cm 11 or part thereof #1- R LATERL LE -Time 11:19 -Correct Patient Yes -Correct Side, Site, Position Yes -Correct Procedure Yes -Procedure Performed Yes -Type of Procedure Debridement -Clinical Debridement Subcutaneous -Tissue Removed Subcutaneous -Post Debridement (cm) - Length 7.0 -Post Debridement (cm) - Width 8.5 -Post Debridement (cm) - Depth 0.1 -Total Square (Post) (cm) 59.50 -Area of Debridement (cm) - Length 7.0 -Area of Debridement (cm) - Width 8.5 -Total Square (Area) (cm) 59.50 -Tunneling No -Undermining/Tunneling No -Circular Undermining No -Wound/Ulcer Outcome Not Healed -Ulcer Cleansing Rinsed/ Irrigated with Saline -Foul Odor after Cleansing No -Bioengineered Tissue No -Bleeding Controlled with Pressure -Offloading No -Treatment Response Procedure Tolerated Well -Debridement - Subq, 1st 20sq cm No -Debridement, SubQ, ea addt'l 20sq cm 2 or part thereof Pain Scale: 0-10 Numeric Is Patient Pain Free? Yes - Nurse 3 - General Ulcer D/C NN Start: 01/26/20 10:27 Freq: Status: Active Protocol: Activity Type Activity Date Activity User E-Sign Co-Sign Detail Recorded Client Recorded Date Recorded By Document 01/26/20 11:58 [facility] [id number] 01/26/20 12:00 [facility] 01/26/20 11:58 Wound Care Nurse 3 #2- LLE CIRCUMFERENTIAL -Ulcer Cleansing Rinsed/ Irrigated with Saline -Foul Odor after Cleansing No -Primary Dressing Applied NonAdherent Contact Layer -Other Dressing xeroform, hydrogel -Primary Dressing Covered/Secured with Dry Gauze & Roll Gauze, Secured with Tape,Other -Other Covering abd #1- R LATERL LE -Ulcer Cleansing Rinsed/ Irrigated with Saline -Foul Odor after Cleansing No -Primary Dressing Applied NonAdherent Contact Layer -Primary Dressing Covered/Secured with Dry Gauze & Roll Gauze, Secured with Tape,Other -Other Covering abd Right -Compression Wrap Julio Cesar Wrap Left -Compression Wrap Julio Cesar Wrap Treatment Response Procedure Tolerated Well Vital Signs Pulse Rate (60-100 beats/min) 80 Pulse Location Monitor Respiratory Rate (12-18 breaths/min) 18 Respiratory rate source Monitor Blood Pressure (90/60-120/80 mm Hg) 125/62 H Blood Pressure Mean (mm Hg) 83 Source Monitor Position Sitting Blood Pressure Location Left Arm Pain Scale: 0-10 Numeric Is Patient Pain Free? Yes WC - Visit Discharge Discharge Condition Stable Ambulatory Status Ambulatory,Cane Transportation Private Auto Facility Type Home Health Wound debrided: Left lower extremity (circumferential) Type of Debridement: Excisional debridement Anesthesia Used: 4% Lidocaine Solution Depth: Down to and including healthy tissue, in the subcutaneous layer Percentage of wound debrided: 100 Instrument Used: 7mm curette Tissue Removed: Slough and devitalized tissue Severity: Fat Layer Exposed Bleeding Controlled with: Pressure - Additional Wound Wound debrided: Right lower extremity Type of Debridement: Selective debridement Anesthesia Used: 4% Lidocaine Solution Depth: Down to and including healthy tissue, in the subcutaneous layer Percentage of wound debrided: 100 Instrument Used: 7mm curette Tissue Removed: Slough and devitalized tissue Severity: Fat Layer Exposed Amount of bleeding with debridement: Mild Bleeding Controlled with: Pressure Patient tolerated procedure: Patient tolerated procedure well Assessment/Plan Active Problems Bilateral cellulitis of lower leg (Acute) Stasis dermatitis of both legs (Chronic) CKD (chronic kidney disease) stage 3, GFR 30-59 ml/min (Chronic) Ulcer of left lower extremity with fat layer exposed (Chronic) Ulcer of right lower extremity with fat layer exposed (Chronic) Type 2 diabetes mellitus (Chronic) Bilateral lower extremity edema (Chronic) Assessment: Nonhealing bilateral lower extremity ulcers, left greater than right. Significant left eschar to left leg ( lateral ). Poorly controlled diabetes mellitus. Chronic bilateral lower extremity edema. Plan: Debridement done as documented above, procedure was well-tolerated. Areas of necrotic tissue/eschar on the left lateral leg. Also significant slough. Patient is tender. Will start Santyl to necrotic/ Eschar areas with Xeroform over other areas. Xeroform also to right leg. Optimal diabetes management strongly recommended. Julio Cesar wraps for edema management. Elevate lower extremity when seated and in bed. Increase protein intake, vitamin C and zinc. His questions were answered and he was advised to call with any further questions or concerns. Follow-up in a week. This note was generated with [employer] dictation software. It may contain incorrect words, spelling, and punctuation that were not noted in checking the note before signing. Multi Select Codes - Visit Charges Office Visit/Consults: 58349 OV L3 Est - Integumentary Integumentary CPT Codes: 43978 June subq tissue 20 sq cm/< - Additional square centimeter debrided, please refer to clinical note.
[2020-02-02 10:40] VITALS: BP 109/45; PULSE 69; RESP 18; TEMP 36.2; BMI 36.1
[2020-02-02 11:51] VITALS: BP 124/60; PULSE 67; RESP 16
--- NOTE | 2020-02-02 12:14 | PCM.WC.PN ---
(1) Ulcer of left lower extremity with fat layer exposed Status: Chronic Current Visit: Yes Code(s): L97.922 - Non-pressure chronic ulcer of unspecified part of left lower leg with fat layer exposed (2) Ulcer of right lower extremity with fat layer exposed Status: Chronic Current Visit: Yes Code(s): L97.912 - Non-pressure chronic ulcer of unspecified part of right lower leg with fat layer exposed (3) Type 2 diabetes mellitus Status: Chronic Current Visit: Yes Code(s): E11.9 - Type 2 diabetes mellitus without complications (4) Bilateral lower extremity edema Status: Chronic Current Visit: Yes Code(s): R60.0 - Localized edema (5) Bilateral cellulitis of lower leg Status: Acute Current Visit: Yes Code(s): L03.116 - Cellulitis of left lower limb; L03.115 - Cellulitis of right lower limb (6) Stasis dermatitis of both legs Status: Chronic Current Visit: Yes Code(s): I87.2 - Venous insufficiency (chronic) (peripheral) (7) CKD (chronic kidney disease) stage 3, GFR 30-59 ml/min Status: Chronic Current Visit: Yes Code(s): N18.3 - Chronic kidney disease, stage 3 (moderate) Type of Wound Date of Service: 02/02/20 Chief Complaint: Nonhealing bilateral leg ulcers History of Wound: Mr. Garcia is a 64-year-old who was referred to the wound center due to nonhealing bilateral leg ulcers. Had presented to the emergency room at [facility] on the 05 of January due to significant bilateral lower extremity pain and redness. Managed for bilateral leg cellulitis. Discharged on the . Ulcers have been managed at home by home health. Was on Omnicef at discharge. Still reports significant predominantly left lower extremity pain. Edema is persistent. History of diabetes mellitus type 2 which is not well controlled, fasting blood glucose this morning said to be 178. He denies chills, fever, nausea or vomiting. Progress of Wound: No new concerns at this time. Did note some improvement with Santyl. Minimal area on right lower extremity. - Physical Exam Vital Signs Temp Pulse Resp BP 97.2 F L 67 16 124/60 H 02/02/20 10:40 02/02/20 11:51 02/02/20 11:51 02/02/20 11:51 General: Alert, Oriented x3, Cooperative, No apparent distress HEENT: Atraumatic, Normocephalic Oral: Moist Mucosa Lungs: Normal air movement Abdomen: Non Tender, Obese Extremities: No cyanosis, Edema Skin: Ulcer/ Wound Wound Measurements and Assessment WC - Nurse 1 - General Ulcer Measurement Start: 01/26/20 10:27 Freq: Status: Active Protocol: Activity Type Activity Date Activity User E-Sign Co-Sign Detail Recorded Client Recorded Date Recorded By Document 02/02/20 10:40 [facility] [id number] 02/02/20 10:57 BM 02/02/20 10:40 Wound Center Nurse 1 [Ulcer Assessment] #2- LLE CIRCUMFERENTIAL -Combined with other wound No -Current Size (cm) - Length 26.5 -Current Size (cm) - Width 37.1 -Current Size (cm) - Depth 0.1 -Total Square Cm 983.15 -Photo Taken No -Epithelialization None Present -Tunneling No -Undermining/Tunneling No -Circular Undermining No -Exudate Amt Large -Exudate Type Serosanguineous -Wound Margin Distinct, Outline Attached -Granulation Amt Medium (34-66%) -Granulation Quality Red -Slough/Fibrin Yes -Necrosis Amt Medium (34-66%) -Necrotic Tissue Type Adherent Slough -Texture (Reina-wound Skin Appearance) Assessed, Excoriation, Friable, Scarring -Moisture (Reina-wound Skin Appearance Assessed, ) Maceration, Weeping -Color (Reina-wound Skin Appearance) Assessed, Erythema, Hemosiderin Staining,Palor -Temperature (Reina-wound Skin No Abnormality Appearance) (Pt Warm) -Tenderness on Palpation (Reina-wound Yes Skin Appearance) -Ulcer Cleansing SOAPY WATER -Foul Odor after Cleansing No -Anesthetic Used 4% Lidocaine Solution #1- R LATERAL LE -Combined with other wound No -Current Size (cm) - Length 0.1 -Current Size (cm) - Width 0.1 -Current Size (cm) - Depth 0.1 -Total Square Cm 0.01 -Photo Taken No -Epithelialization Large 67-100% -Tunneling No -Undermining/Tunneling No -Circular Undermining No -Exudate Amt None Present -Texture (Reina-wound Skin Appearance) Assessed, Scarring -Moisture (Reina-wound Skin Appearance Assessed,Dry/ ) Scaly -Color (Reina-wound Skin Appearance) Assessed, Erythema, Hemosiderin Staining -Temperature (Reina-wound Skin No Abnormality Appearance) (Pt Warm) -Tenderness on Palpation (Reina-wound No Skin Appearance) -Ulcer Cleansing SOAPY WATER -Foul Odor after Cleansing No -Anesthetic Used 4% Lidocaine Solution [Edema Assessment] -Lower Limb Edema Present Yes -Right Calf (cm) 48.5 -Right Ankle (cm) 29.8 -Left Calf (cm) 48.6 -Left Ankle (cm) 27.3 WC - Nurse 2 - General Ulcer CM Notes Start: 01/26/20 10:27 Freq: Status: Active Protocol: Activity Type Activity Date Activity User E-Sign Co-Sign Detail Recorded Client Recorded Date Recorded By Document 02/02/20 11:22 MW [id number] 02/02/20 11:40 MW 02/02/20 11:22 Wound Center Nurse 2 [Procedure/Treatment] #2- LLE CIRCUMFERENTIAL -Time 11:23 -Correct Patient Yes -Correct Side, Site, Position Yes -Correct Procedure Yes -Procedure Performed Yes -Type of Procedure Debridement -Clinical Debridement Subcutaneous -Tissue Removed Subcutaneous -Post Debridement (cm) - Length 20.0 -Post Debridement (cm) - Width 37.0 -Post Debridement (cm) - Depth 0.3 -Total Square (Post) (cm) 740.00 -Area of Debridement (cm) - Length 20.0 -Area of Debridement (cm) - Width 37.0 -Total Square (Area) (cm) 740.00 -Tunneling No -Undermining/Tunneling No -Circular Undermining No -Wound/Ulcer Outcome Not Healed -Ulcer Cleansing Rinsed/ Irrigated with Saline -Foul Odor after Cleansing No -Bioengineered Tissue No -Bleeding Controlled with Pressure -Offloading No -Debridement - Subq, 1st 20sq cm Yes -Debridement, SubQ, ea addt'l 20sq cm 11 or part thereof #1- R LATERAL LE -Time 11:24 -Correct Patient Yes -Correct Side, Site, Position Yes -Correct Procedure Yes -Procedure Performed No -Post Debridement (cm) - Length 0.1 -Post Debridement (cm) - Width 0.1 -Post Debridement (cm) - Depth 0.1 -Total Square (Post) (cm) 0.01 -Area of Debridement (cm) - Length 0.1 -Area of Debridement (cm) - Width 0.1 -Total Square (Area) (cm) 0.01 -Tunneling No -Undermining/Tunneling No -Circular Undermining No -Wound/Ulcer Outcome Not Healed -Ulcer Cleansing Not Cleansed -Bioengineered Tissue No -Bleeding Controlled with NA -Offloading No -Type of Offloading Surgical Shoe -Debridement - Subq, 1st 20sq cm No [See Physician Procedure note for Specifics] Pain Scale: 0-10 Numeric [Pain] -Is Patient Pain Free? Yes - Nurse 3 - General Ulcer D/C NN Start: 01/26/20 10:27 Freq: Status: Active Protocol: Activity Type Activity Date Activity User E-Sign Co-Sign Detail Recorded Client Recorded Date Recorded By Document 02/02/20 11:51 [facility] [id number] 02/02/20 11:53 [facility] 02/02/20 11:51 Wound Care Nurse 3 [Wound Dressing] #2- LLE CIRCUMFERENTIAL -Ulcer Cleansing Rinsed/ Irrigated with Saline -Foul Odor after Cleansing No -Primary Dressing Applied NonAdherent Contact Layer, Other -Other Dressing HYDROGEL -Primary Dressing Covered/Secured Dry Gauze & with Roll Gauze, Secured with Tape,Other -Other Covering ABD #1- R LATERAL LE -Ulcer Cleansing Rinsed/ Irrigated with Saline -Foul Odor after Cleansing No -Primary Dressing Applied NonAdherent Contact Layer, Other -Other Dressing HYDROGEL -Primary Dressing Covered/Secured Dry Gauze & with Roll Gauze, Secured with Tape,Other -Other Covering ABD [Compression Applied] Right -Compression Wrap Julio Cesar Wrap Left -Compression Wrap Julio Csear Wrap [Post Procedure Tolerated] -Treatment Response Procedure Tolerated Well Vital Signs [Pulse] -Pulse Rate (60-100 beats/min) 67 -Pulse Location Monitor [Respirations] -Respiratory Rate (12-18 breaths/min) 16 -Respiratory rate source Observation -Oxygen Delivery Method Room Air [Blood Pressure] -Blood Pressure (90/60-120/80 mm Hg) 124/60 H -Blood Pressure Mean (mm Hg) 81 -Source Monitor -Position Sitting -Blood Pressure Location Right Arm Pain Scale: 0-10 Numeric [Pain] -Is Patient Pain Free? Yes WC - Visit Discharge [Visit Discharge Information] -Discharge Condition Stable -Ambulatory Status Ambulatory -Transportation Private Auto [Facility Notification] -Facility Type Home Health Musculoskeletal: No Muscle Wasting Neurological: Cranial nerves II-XII grossly intact Psych/Mental Status: Normal Affect Debridement Note Post-Debridement Measurements/Treatment WC - Nurse 2 - General Ulcer CM Notes Start: 01/26/20 10:27 Freq: Status: Active Protocol: Activity Type Activity Date Activity User E-Sign Co-Sign Detail Recorded Client Recorded Date Recorded By Document 01/26/20 11:17 MW [id number] 01/26/20 11:29 MW Document 02/02/20 11:22 MW [id number] 02/02/20 11:40 MW 01/26/20 02/02/20 11:17 11:22 Wound Center Nurse 2 #2- LLE CIRCUMFERENTIAL -Time 11:18 11:23 -Correct Patient Yes Yes -Correct Side, Site, Position Yes Yes -Correct Procedure Yes Yes -Procedure Performed Yes Yes -Type of Procedure Debridement Debridement -Clinical Debridement Subcutaneous Subcutaneous -Tissue Removed Subcutaneous Subcutaneous -Post Debridement (cm) - Length 20.0 20.0 -Post Debridement (cm) - Width 37.0 37.0 -Post Debridement (cm) - Depth 0.1 0.3 -Total Square (Post) (cm) 740.00 740.00 -Area of Debridement (cm) - Length 20.0 20.0 -Area of Debridement (cm) - Width 37.0 37.0 -Total Square (Area) (cm) 740.00 740.00 -Tunneling No No -Undermining/Tunneling No No -Circular Undermining No No -Wound/Ulcer Outcome Not Healed Not Healed -Ulcer Cleansing Rinsed/ Rinsed/ Irrigated with Irrigated with Saline Saline -Foul Odor after Cleansing No No -Bioengineered Tissue No No -Bleeding Controlled with Pressure Pressure -Offloading No No -Treatment Response Procedure Tolerated Well -Debridement - Subq, 1st 20sq cm Yes Yes -Debridement, SubQ, ea addt'l 20sq cm 11 11 or part thereof #1- R LATERAL LE -Time 11:19 11:24 -Correct Patient Yes Yes -Correct Side, Site, Position Yes Yes -Correct Procedure Yes Yes -Procedure Performed Yes No -Type of Procedure Debridement -Clinical Debridement Subcutaneous -Tissue Removed Subcutaneous -Post Debridement (cm) - Length 7.0 0.1 -Post Debridement (cm) - Width 8.5 0.1 -Post Debridement (cm) - Depth 0.1 0.1 -Total Square (Post) (cm) 59.50 0.01 -Area of Debridement (cm) - Length 7.0 0.1 -Area of Debridement (cm) - Width 8.5 0.1 -Total Square (Area) (cm) 59.50 0.01 -Tunneling No No -Undermining/Tunneling No No -Circular Undermining No No -Wound/Ulcer Outcome Not Healed Not Healed -Ulcer Cleansing Rinsed/ Not Cleansed Irrigated with Saline -Foul Odor after Cleansing No -Bioengineered Tissue No No -Bleeding Controlled with Pressure NA -Offloading No No -Type of Offloading Surgical Shoe -Treatment Response Procedure Tolerated Well -Debridement - Subq, 1st 20sq cm No No -Debridement, SubQ, ea addt'l 20sq cm 2 or part thereof Pain Scale: 0-10 Numeric Is Patient Pain Free? Yes Yes WC - Nurse 3 - General Ulcer D/C NN Start: 01/26/20 10:27 Freq: Status: Active Protocol: Activity Type Activity Date Activity User E-Sign Co-Sign Detail Recorded Client Recorded Date Recorded By Document 01/26/20 11:58 [facility] [id number] 01/26/20 12:00 [facility] Document 02/02/20 11:51 [facility] [id number] 02/02/20 11:53 [facility] 01/26/20 02/02/20 11:58 11:51 Wound Care Nurse 3 #2- LLE CIRCUMFERENTIAL -Ulcer Cleansing Rinsed/ Rinsed/ Irrigated with Irrigated with Saline Saline -Foul Odor after Cleansing No No -Primary Dressing Applied NonAdherent NonAdherent Contact Layer Contact Layer, Other -Other Dressing xeroform, HYDROGEL hydrogel -Primary Dressing Covered/Secured with Dry Gauze & Dry Gauze & Roll Gauze, Roll Gauze, Secured with Secured with Tape,Other Tape,Other -Other Covering abd ABD #1- R LATERAL LE -Ulcer Cleansing Rinsed/ Rinsed/ Irrigated with Irrigated with Saline Saline -Foul Odor after Cleansing No No -Primary Dressing Applied NonAdherent NonAdherent Contact Layer Contact Layer, Other -Other Dressing HYDROGEL -Primary Dressing Covered/Secured with Dry Gauze & Dry Gauze & Roll Gauze, Roll Gauze, Secured with Secured with Tape,Other Tape,Other -Other Covering abd ABD Right -Compression Wrap Julio Cesar Wrap Julio Cesar Wrap Left -Compression Wrap Julio Cesar Wrap Julio Cesar Wrap Treatment Response Procedure Procedure Tolerated Well Tolerated Well Vital Signs Pulse Rate (60-100 beats/min) 80 67 Pulse Location Monitor Monitor Respiratory Rate (12-18 breaths/min) 18 16 Respiratory rate source Monitor Observation Oxygen Delivery Method Room Air Blood Pressure (90/60-120/80 mm Hg) 125/62 H 124/60 H Blood Pressure Mean (mm Hg) 83 81 Source Monitor Monitor Position Sitting Sitting Blood Pressure Location Left Arm Right Arm Pain Scale: 0-10 Numeric Is Patient Pain Free? Yes Yes WC - Visit Discharge Discharge Condition Stable Stable Ambulatory Status Ambulatory,Cane Ambulatory Transportation Private Auto Private Auto Facility Type Home Health Home Health Wound debrided: Left lower extremity circumferential Type of Debridement: Excisional debridement Anesthesia Used: 4% Lidocaine Solution Depth: Down to and including healthy tissue, in the subcutaneous layer Percentage of wound debrided: 100 Instrument Used: 7mm curette, #15 blade, Forceps Tissue Removed: Slough and devitalized tissue Severity: Fat Layer Exposed Amount of bleeding with debridement: Mild Bleeding Controlled with: Pressure Patient tolerated procedure well Assessment/Plan Active Problems Bilateral cellulitis of lower leg (Acute) Stasis dermatitis of both legs (Chronic) CKD (chronic kidney disease) stage 3, GFR 30-59 ml/min (Chronic) Ulcer of left lower extremity with fat layer exposed (Chronic) Ulcer of right lower extremity with fat layer exposed (Chronic) Type 2 diabetes mellitus (Chronic) Bilateral lower extremity edema (Chronic) Assessment: Nonhealing bilateral lower extremity ulcers, left greater than right. Significant left eschar to left leg ( lateral ). Poorly controlled diabetes mellitus. Chronic bilateral lower extremity edema. Plan: Debridement done as documented above, procedure was well-tolerated. Slough burden improving and he was less tender today. Continue Santyl and Xeroform over other areas. Xeroform also to right leg. Optimal diabetes management strongly recommended. Julio Cesar wraps for edema management. Elevate lower extremity when seated and in bed. Increase protein intake, vitamin C and zinc. His questions were answered and he was advised to call with any further questions or concerns. Follow-up in a week. This note was generated with [employer] software. It may contain incorrect words, spelling, and punctuation that were not noted in checking the note before signing. [id number]: [id number] June subq tissue 20 sq cm/< Add On Codes: 72809 June subq tissue add-on - Additional Sq Cm debrided, please refer to clinical note.
[2020-02-09 11:12] VITALS: BP 116/58; PULSE 75; RESP 18; TEMP 36.1; BMI 36.1
--- NOTE | 2020-02-09 12:20 | PCM.WC.PN ---
(1) Ulcer of left lower extremity with fat layer exposed Status: Chronic Code(s): L97.922 - Non-pressure chronic ulcer of unspecified part of left lower leg with fat layer exposed (2) Ulcer of right lower extremity with fat layer exposed Status: Chronic Code(s): L97.912 - Non-pressure chronic ulcer of unspecified part of right lower leg with fat layer exposed (3) Type 2 diabetes mellitus Status: Chronic Code(s): E11.9 - Type 2 diabetes mellitus without complications (4) Bilateral lower extremity edema Status: Chronic Code(s): R60.0 - Localized edema (5) Bilateral cellulitis of lower leg Status: Acute Code(s): L03.116 - Cellulitis of left lower limb; L03.115 - Cellulitis of right lower limb (6) Stasis dermatitis of both legs Status: Chronic Code(s): I87.2 - Venous insufficiency (chronic) (peripheral) (7) CKD (chronic kidney disease) stage 3, GFR 30-59 ml/min Status: Chronic Code(s): N18.3 - Chronic kidney disease, stage 3 (moderate) Type of Wound Date of Service: 02/09/20 Chief Complaint: Nonhealing bilateral leg ulcers History of Wound: Mr. Garcia is a 64-year-old who was referred to the wound center due to nonhealing bilateral leg ulcers. Had presented to the emergency room at [facility] on the 05 of January due to significant bilateral lower extremity pain and redness. Managed for bilateral leg cellulitis. Discharged on the . Ulcers have been managed at home by home health. Was on Omnicef at discharge. Still reports significant predominantly left lower extremity pain. Edema is persistent. History of diabetes mellitus type 2 which is not well controlled, fasting blood glucose this morning said to be 178. He denies chills, fever, nausea or vomiting. Progress of Wound: No new concerns at this time. Ulcers are improving. Significant right lower extremity edema. - Physical Exam Vital Signs Temp Pulse Resp BP 97 F L 75 18 116/58 L 02/09/20 11:12 02/09/20 11:12 02/09/20 11:12 02/09/20 11:12 General: Alert, Oriented x3, Cooperative, No apparent distress HEENT: Atraumatic, Normocephalic Oral: Moist Mucosa Neck: Supple Lungs: Normal air movement Abdomen: Non Tender, Obese Extremities: No cyanosis, Edema Skin: Ulcer/ Wound Wound Measurements and Assessment WC - Nurse 1 - General Ulcer Measurement Start: 01/26/20 10:27 Freq: Status: Active Protocol: Activity Type Activity Date Activity User E-Sign Co-Sign Detail Recorded Client Recorded Date Recorded By Document 02/09/20 11:12 RB [id number] 02/09/20 11:37 RB 02/09/20 11:12 Wound Center Nurse 1 [Ulcer Assessment] #2- LLE CIRCUMFERENTIAL -Combined with other wound No -Current Size (cm) - Length 18.5 -Current Size (cm) - Width 18 -Current Size (cm) - Depth 0.1 -Total Square Cm 333.0 -Tunneling No -Undermining/Tunneling No -Circular Undermining No -Exudate Amt Small -Exudate Type Serosanguineous -Wound Margin Flat & Intact -Granulation Amt Medium (34-66%) -Granulation Quality [place] -Slough/Fibrin Yes -Necrosis Amt Small (1-33%) -Necrotic Tissue Type Adherent Slough -Structure Exposed N/A -Texture (Reina-wound Skin Appearance) Assessed, Excoriation -Moisture (Reina-wound Skin Appearance Assessed,Dry/ ) Scaly -Color (Reina-wound Skin Appearance) Assessed -Temperature (Reina-wound Skin No Abnormality Appearance) (Pt Warm) -Tenderness on Palpation (Reina-wound No Skin Appearance) -Ulcer Cleansing Wound Cleanser -Foul Odor after Cleansing No -Anesthetic Used 4% Lidocaine Solution #1- R LATERAL LE -Combined with other wound No -Current Size (cm) - Length 0.1 -Current Size (cm) - Width 0.1 -Current Size (cm) - Depth 0.1 -Total Square Cm 0.01 -Tunneling No -Undermining/Tunneling No -Circular Undermining No -Texture (Reina-wound Skin Appearance) Excoriation -Moisture (Reina-wound Skin Appearance Assessed ) -Color (Reina-wound Skin Appearance) Assessed -Temperature (Reina-wound Skin No Abnormality Appearance) (Pt Warm) -Tenderness on Palpation (Reina-wound No Skin Appearance) -Ulcer Cleansing Wound Cleanser -Foul Odor after Cleansing No [Edema Assessment] -Lower Limb Edema Present Yes -Right Calf (cm) 50.7 -Right Ankle (cm) 28.6 -Left Calf (cm) 50.8 -Left Ankle (cm) 27.5 NATHALIE - Nurse 2 - General Ulcer CM Notes Start: 01/26/20 10:27 Freq: Status: Active Protocol: Activity Type Activity Date Activity User E-Sign Co-Sign Detail Recorded Client Recorded Date Recorded By Document 02/09/20 11:41 MW [id number] 02/09/20 11:49 MW 02/09/20 11:41 Wound Center Nurse 2 [Procedure/Treatment] #2- LLE CIRCUMFERENTIAL -Time 11:45 -Correct Patient Yes -Correct Side, Site, Position Yes -Correct Procedure Yes -Procedure Performed Yes -Type of Procedure Debridement -Clinical Debridement Subcutaneous -Tissue Removed Subcutaneous -Post Debridement (cm) - Length 16.5 -Post Debridement (cm) - Width 29.0 -Post Debridement (cm) - Depth 0.2 -Total Square (Post) (cm) 478.50 -Area of Debridement (cm) - Length 16.5 -Area of Debridement (cm) - Width 29.0 -Total Square (Area) (cm) 478.50 -Tunneling No -Undermining/Tunneling No -Circular Undermining No -Wound/Ulcer Outcome Not Healed -Ulcer Cleansing Rinsed/ Irrigated with Saline -Foul Odor after Cleansing No -Bioengineered Tissue No -Bleeding Controlled with Pressure -Offloading No -Treatment Response Procedure Tolerated Well -Debridement - Subq, 1st 20sq cm Yes -Debridement, SubQ, ea addt'l 20sq cm 11 or part thereof #1- R LATERAL LE -Time 11:49 -Correct Patient Yes -Correct Side, Site, Position Yes -Correct Procedure Yes -Procedure Performed No -Post Debridement (cm) - Length 0.1 -Post Debridement (cm) - Width 0.1 -Post Debridement (cm) - Depth 0.1 -Total Square (Post) (cm) 0.01 -Tunneling No -Undermining/Tunneling No -Circular Undermining No -Wound/Ulcer Outcome Not Healed -Ulcer Cleansing Not Cleansed -Foul Odor after Cleansing No -Bioengineered Tissue No -Bleeding Controlled with NA -Offloading No [See Physician Procedure note for Specifics] Pain Scale: 0-10 Numeric [Pain] -Is Patient Pain Free? Yes NATHALIE - Nurse 3 - General Ulcer D/C NN Start: 01/26/20 10:27 Freq: Status: Active Protocol: Activity Type Activity Date Activity User E-Sign Co-Sign Detail Recorded Client Recorded Date Recorded By Document 02/09/20 11:53 MW [id number] 02/09/20 11:58 MW 02/09/20 11:53 Wound Care Nurse 3 [Wound Dressing] #2- LLE CIRCUMFERENTIAL -Ulcer Cleansing Rinsed/ Irrigated with Saline -Foul Odor after Cleansing No -Negative Pressure Wound Therapy N/A -Other Dressing c.hydrogel, xeroform -Primary Dressing Covered/Secured Dry Gauze & with Roll Gauze, Secured with Tape #1- R LATERAL LE -Ulcer Cleansing Rinsed/ Irrigated with Saline -Foul Odor after Cleansing No -Negative Pressure Wound Therapy N/A -Other Dressing xeroform [Compression Applied] Right -Lotion applied to leg before No compression wrap -Multi-Layered Wrap Application Multi-Layer Comp - Right ($ ) Left -Lotion applied to leg before No compression wrap -Compression Wrap Julio Cesar Wrap [Post Procedure Tolerated] -Treatment Response Procedure Tolerated Well Pain Scale: 0-10 Numeric [Pain] -Is Patient Pain Free? Yes Teaching: Wound Center [Wound Center Education] (Items with an * have Printed Materials Available- Please identify what is given to patient under the Teaching materials given to patient and caregiver Section. Dressing Your Wound -Person Taught Patient -Teaching Method Discussion, Demonstration -Response to teaching Verbalize understanding WC - Visit Discharge [Visit Discharge Information] -Discharge Condition Stable -Ambulatory Status Ambulatory -Transportation Private Auto -Accompanied by self -Medication Reconcilliation completed No & provided to patient/care provider -Clinical Summary of Care Provided Yes Musculoskeletal: No Muscle Wasting Neurological: Cranial nerves II-XII grossly intact Psych/Mental Status: Normal Affect Debridement Note Post-Debridement Measurements/Treatment WC - Nurse 2 - General Ulcer CM Notes Start: 01/26/20 10:27 Freq: Status: Active Protocol: Activity Type Activity Date Activity User E-Sign Co-Sign Detail Recorded Client Recorded Date Recorded By Document 01/26/20 11:17 MW [id number] 01/26/20 11:29 MW Document 02/02/20 11:22 MW [id number] 02/02/20 11:40 MW Document 02/09/20 11:41 MW [id number] 02/09/20 11:49 MW 01/26/20 02/02/20 02/09/20 11:17 11:22 11:41 Wound Center Nurse 2 #2- LLE CIRCUMFERENTIAL -Time 11:18 11:23 11:45 -Correct Patient Yes Yes Yes -Correct Side, Site, Position Yes Yes Yes -Correct Procedure Yes Yes Yes -Procedure Performed Yes Yes Yes -Type of Procedure Debridement Debridement Debridement -Clinical Debridement Subcutaneous Subcutaneous Subcutaneous -Tissue Removed Subcutaneous Subcutaneous Subcutaneous -Post Debridement (cm) - Length 20.0 20.0 16.5 -Post Debridement (cm) - Width 37.0 37.0 29.0 -Post Debridement (cm) - Depth 0.1 0.3 0.2 -Total Square (Post) (cm) 740.00 740.00 478.50 -Area of Debridement (cm) - Length 20.0 20.0 16.5 -Area of Debridement (cm) - Width 37.0 37.0 29.0 -Total Square (Area) (cm) 740.00 740.00 478.50 -Tunneling No No No -Undermining/Tunneling No No No -Circular Undermining No No No -Wound/Ulcer Outcome Not Healed Not Healed Not Healed -Ulcer Cleansing Rinsed/ Rinsed/ Rinsed/ Irrigated with Irrigated with Irrigated with Saline Saline Saline -Foul Odor after Cleansing No No No -Bioengineered Tissue No No No -Bleeding Controlled with Pressure Pressure Pressure -Offloading No No No -Treatment Response Procedure Procedure Tolerated Well Tolerated Well -Debridement - Subq, 1st 20sq cm Yes Yes Yes -Debridement, SubQ, ea addt'l 20sq cm 11 11 11 or part thereof #1- R LATERAL LE -Time 11:19 11:24 11:49 -Correct Patient Yes Yes Yes -Correct Side, Site, Position Yes Yes Yes -Correct Procedure Yes Yes Yes -Procedure Performed Yes No No -Type of Procedure Debridement -Clinical Debridement Subcutaneous -Tissue Removed Subcutaneous -Post Debridement (cm) - Length 7.0 0.1 0.1 -Post Debridement (cm) - Width 8.5 0.1 0.1 -Post Debridement (cm) - Depth 0.1 0.1 0.1 -Total Square (Post) (cm) 59.50 0.01 0.01 -Area of Debridement (cm) - Length 7.0 0.1 -Area of Debridement (cm) - Width 8.5 0.1 -Total Square (Area) (cm) 59.50 0.01 -Tunneling No No No -Undermining/Tunneling No No No -Circular Undermining No No No -Wound/Ulcer Outcome Not Healed Not Healed Not Healed -Ulcer Cleansing Rinsed/ Not Cleansed Not Cleansed Irrigated with Saline -Foul Odor after Cleansing No No -Bioengineered Tissue No No No -Bleeding Controlled with Pressure NA NA -Offloading No No No -Type of Offloading Surgical Shoe -Treatment Response Procedure Tolerated Well -Debridement - Subq, 1st 20sq cm No No -Debridement, SubQ, ea addt'l 20sq cm 2 or part thereof Pain Scale: 0-10 Numeric Is Patient Pain Free? Yes Yes Yes WC - Nurse 3 - General Ulcer D/C NN Start: 01/26/20 10:27 Freq: Status: Active Protocol: Activity Type Activity Date Activity User E-Sign Co-Sign Detail Recorded Client Recorded Date Recorded By Document 01/26/20 11:58 [facility] [id number] 01/26/20 12:00 [facility] Document 02/02/20 11:51 BMF [id number] 02/02/20 11:53 [facility] Document 02/09/20 11:53 MW [id number] 02/09/20 11:58 MW 01/26/20 02/02/20 02/09/20 11:58 11:51 11:53 Wound Care Nurse 3 #2- LLE CIRCUMFERENTIAL -Ulcer Cleansing Rinsed/ Rinsed/ Rinsed/ Irrigated with Irrigated with Irrigated with Saline Saline Saline -Foul Odor after Cleansing No No No -Negative Pressure Wound Therapy N/A -Primary Dressing Applied NonAdherent NonAdherent Contact Layer Contact Layer, Other -Other Dressing xeroform, HYDROGEL c.hydrogel, hydrogel xeroform -Primary Dressing Covered/Secured with Dry Gauze & Dry Gauze & Dry Gauze & Roll Gauze, Roll Gauze, Roll Gauze, Secured with Secured with Secured with Tape,Other Tape,Other Tape -Other Covering abd ABD #1- R LATERAL LE -Ulcer Cleansing Rinsed/ Rinsed/ Rinsed/ Irrigated with Irrigated with Irrigated with Saline Saline Saline -Foul Odor after Cleansing No No No -Negative Pressure Wound Therapy N/A -Primary Dressing Applied NonAdherent NonAdherent Contact Layer Contact Layer, Other -Other Dressing HYDROGEL xeroform -Primary Dressing Covered/Secured with Dry Gauze & Dry Gauze & Roll Gauze, Roll Gauze, Secured with Secured with Tape,Other Tape,Other -Other Covering abd ABD Right -Lotion applied to leg before No compression wrap -Multi-Layered Wrap Application Multi-Layer Comp - Right ($ ) -Compression Wrap Julio Cesar Wrap Julio Cesar Wrap Left -Lotion applied to leg before No compression wrap -Compression Wrap Julio Cesar Wrap Julio Cesar Wrap Julio Cesar Wrap Treatment Response Procedure Procedure Procedure Tolerated Well Tolerated Well Tolerated Well Vital Signs Pulse Rate (60-100 beats/min) 80 67 Pulse Location Monitor Monitor Respiratory Rate (12-18 breaths/min) 18 16 Respiratory rate source Monitor Observation Oxygen Delivery Method Room Air Blood Pressure (90/60-120/80 mm Hg) 125/62 H 124/60 H Blood Pressure Mean (mm Hg) 83 81 Source Monitor Monitor Position Sitting Sitting Blood Pressure Location Left Arm Right Arm Pain Scale: 0-10 Numeric Is Patient Pain Free? Yes Yes Yes Teaching: Wound Center Dressing Your Wound -Person Taught Patient -Teaching Method Discussion, Demonstration -Response to teaching Verbalize understanding WC - Visit Discharge Discharge Condition Stable Stable Stable Ambulatory Status Ambulatory,Cane Ambulatory Ambulatory Transportation Private Auto Private Auto Private Auto Accompanied by self Medication Reconcilliation completed & No provided to patient/care provider Clinical Summary of Care Provided Yes Facility Type Home Health Home Health Wound debrided: Left lower extremity Type of Debridement: Excisional debridement Anesthesia Used: 4% Lidocaine Solution Depth: Down to and including healthy tissue, in the subcutaneous layer Percentage of wound debrided: 100 Instrument Used: 7mm curette, #15 blade, Forceps Tissue Removed: Slough and devitalized tissue Severity: Fat Layer Exposed Amount of bleeding with debridement: Mild Bleeding Controlled with: Pressure Patient tolerated procedure well Assessment/Plan Active Problems Ulcer of left lower extremity with fat layer exposed (Chronic) Ulcer of right lower extremity with fat layer exposed (Chronic) Type 2 diabetes mellitus (Chronic) Bilateral lower extremity edema (Chronic) Assessment: Nonhealing bilateral lower extremity ulcers, left greater than right. Significant left eschar to left leg ( lateral ). Poorly controlled diabetes mellitus. Chronic bilateral lower extremity edema. Plan: Debridement done as documented above, procedure was well-tolerated. Slough burden improving and he was less tender today. Continue Santyl and Xeroform over other areas. Xeroform also to right leg. 3M to right lower extremity for edema management. May change on Thursday. Continue Julio Cesar wraps to the left lower extremity and change daily. Optimal diabetes management strongly recommended. Elevate lower extremity when seated and in bed. Increase protein intake, vitamin C and zinc. His questions were answered and he was advised to call with any further questions or concerns. Follow-up in a week. This note was generated with [employer] dictation software. It may contain incorrect words, spelling, and punctuation that were not noted in checking the note before signing. [id number]: [id number] June subq tissue 20 sq cm/< Add On Codes: 59802 June subq tissue add-on - Additional square centimeter debrided, please refer to clinical note.
[2020-02-16 08:48] VITALS: BP 119/52; PULSE 72; RESP 16; TEMP 35.7; BMI 36.1
[2020-02-16 10:04] VITALS: BP 120/72; PULSE 72
--- NOTE | 2020-02-16 12:18 | PN.PCM_ITS ---
(1) Ulcer of left lower extremity with fat layer exposed Status: Chronic Code(s): L97.922 - Non-pressure chronic ulcer of unspecified part of left lower leg with fat layer exposed (2) Ulcer of right lower extremity with fat layer exposed Status: Chronic Code(s): L97.912 - Non-pressure chronic ulcer of unspecified part of right lower leg with fat layer exposed (3) Type 2 diabetes mellitus Status: Chronic Code(s): E11.9 - Type 2 diabetes mellitus without complications (4) Bilateral lower extremity edema Status: Chronic Code(s): R60.0 - Localized edema (5) Bilateral cellulitis of lower leg Status: Acute Code(s): L03.116 - Cellulitis of left lower limb; L03.115 - Cellulitis of right lower limb (6) Stasis dermatitis of both legs Status: Chronic Code(s): I87.2 - Venous insufficiency (chronic) (peripheral) (7) CKD (chronic kidney disease) stage 3, GFR 30-59 ml/min Status: Chronic Code(s): N18.3 - Chronic kidney disease, stage 3 (moderate) Type of Wound Date of Service: 02/16/20 Chief Complaint: Nonhealing bilateral leg ulcers History of Wound: Mr. Garcia is a 64-year-old who was referred to the wound center due to nonhealing bilateral leg ulcers. Had presented to the emergency room at [facility] on the 05 of January due to significant bilateral lower extremity pain and redness. Managed for bilateral leg cellulitis. Discharged on the . Ulcers have been managed at home by home health. Was on Omnicef at discharge. Still reports significant predominantly left lower extremity pain. Edema is persistent. History of diabetes mellitus type 2 which is not well controlled, fasting blood glucose this morning said to be 178. He denies chills, fever, nausea or vomiting. Progress of Wound: No new concerns at this time. Ulcers are improving. Right lower extremity edema also improving. - Physical Exam Vital Signs Temp Pulse Resp BP 96.3 F L 72 16 120/72 02/16/20 08:48 02/16/20 10:04 02/16/20 08:48 02/16/20 10:04 General: Alert, Oriented x3, Cooperative, No apparent distress HEENT: Atraumatic, Normocephalic Oral: Moist Mucosa Neck: Supple Lungs: Normal air movement Abdomen: Non Tender, Obese Extremities: No cyanosis, Edema Skin: Ulcer/ Wound Wound Measurements and Assessment WC - Nurse 1 - General Ulcer Measurement Start: 01/26/20 10:27 Freq: Status: Active Protocol: Activity Type Activity Date Activity User E-Sign Co-Sign Detail Recorded Client Recorded Date Recorded By Document 02/16/20 08:48 MS [id number] 02/16/20 09:08 MS 02/16/20 08:48 Wound Center Nurse 1 [Ulcer Assessment] #2- LLE CIRCUMFERENTIAL -Current Size (cm) - Length 15.5 -Current Size (cm) - Width 16 -Current Size (cm) - Depth 0.1 -Total Square Cm 248.0 -Exudate Amt Medium -Exudate Type Serosanguineous -Wound Margin Flat & Intact -Granulation Amt Medium (34-66%) -Granulation Quality Red -Slough/Fibrin Yes -Necrosis Amt None Present (0 %) -Moisture (Reina-wound Skin Appearance Assessed,Dry/ ) Scaly -Color (Reina-wound Skin Appearance) Assessed, Erythema -Temperature (Reina-wound Skin No Abnormality Appearance) (Pt Warm) -Tenderness on Palpation (Reina-wound Yes Skin Appearance) -Ulcer Cleansing Rinsed/ Irrigated with Saline -Foul Odor after Cleansing No -Anesthetic Used 4% Lidocaine Solution #1- R LATERAL LE -Current Size (cm) - Length 0.1 -Current Size (cm) - Width 0.1 -Current Size (cm) - Depth 0.1 -Total Square Cm 0.01 -Exudate Amt None Present -Slough/Fibrin Yes -Texture (Reina-wound Skin Appearance) Assessed -Moisture (Reina-wound Skin Appearance Assessed,Dry/ ) Scaly -Color (Reina-wound Skin Appearance) Assessed -Temperature (Reina-wound Skin No Abnormality Appearance) (Pt Warm) -Ulcer Cleansing Rinsed/ Irrigated with Saline -Foul Odor after Cleansing No -Anesthetic Used 4% Lidocaine Solution [Edema Assessment] -Right Calf (cm) 48 -Right Ankle (cm) 29 -Left Calf (cm) 47 -Left Ankle (cm) 26 WC - Nurse 2 - General Ulcer CM Notes Start: 01/26/20 10:27 Freq: Status: Active Protocol: Activity Type Activity Date Activity User E-Sign Co-Sign Detail Recorded Client Recorded Date Recorded By Document 02/16/20 09:18 MW [id number] 02/16/20 09:24 MW 02/16/20 09:18 Wound Center Nurse 2 [Procedure/Treatment] #2- LLE CIRCUMFERENTIAL -Time 09:22 -Correct Patient Yes -Correct Side, Site, Position Yes -Correct Procedure Yes -Procedure Performed Yes -Type of Procedure Debridement -Clinical Debridement Subcutaneous -Tissue Removed Subcutaneous -Post Debridement (cm) - Length 15.5 -Post Debridement (cm) - Width 14.0 -Post Debridement (cm) - Depth 0.1 -Total Square (Post) (cm) 217.00 -Area of Debridement (cm) - Length 15.5 -Area of Debridement (cm) - Width 14.0 -Total Square (Area) (cm) 217.00 -Tunneling No -Undermining/Tunneling No -Circular Undermining No -Wound/Ulcer Outcome Not Healed -Ulcer Cleansing Rinsed/ Irrigated with Saline -Foul Odor after Cleansing No -Bioengineered Tissue No -Bleeding Controlled with Pressure -Offloading No -Debridement - Subq, 1st 20sq cm Yes -Debridement, SubQ, ea addt'l 20sq cm 10 or part thereof #1- R LATERAL LE -Time 09:23 -Correct Patient Yes -Correct Side, Site, Position Yes -Correct Procedure Yes -Procedure Performed No -Post Debridement (cm) - Length 0 -Post Debridement (cm) - Width 0 -Post Debridement (cm) - Depth 0 -Total Square (Post) (cm) 0 -Tunneling No -Undermining/Tunneling No -Circular Undermining No -Wound/Ulcer Outcome Healed- Epithelialized [See Physician Procedure note for Specifics] Pain Scale: 0-10 Numeric [Pain] -Is Patient Pain Free? Yes WC - Nurse 3 - General Ulcer D/C NN Start: 01/26/20 10:27 Freq: Status: Active Protocol: Activity Type Activity Date Activity User E-Sign Co-Sign Detail Recorded Client Recorded Date Recorded By Document 02/16/20 10:04 MS [id number] 02/16/20 10:06 MS 02/16/20 10:04 Wound Care Nurse 3 [Wound Dressing] #2- LLE CIRCUMFERENTIAL -Primary Dressing Applied Fibracol Plus 4x4,NonAdherent Contact Layer -Primary Dressing Covered/Secured Dry Gauze, with Secured with Tape -Fibracol Plus 4x4 1 [Compression Applied] Right -Multi-Layered Wrap Application Multi-Layer Comp - Right ($ ) Left -Multi-Layered Wrap Application Multi-Layer Comp - Left ($) Vital Signs [Pulse] -Pulse Rate (60-100 beats/min) 72 [Blood Pressure] -Blood Pressure (90/60-120/80 mm Hg) 120/72 -Blood Pressure Mean (mm Hg) 88 -Source Monitor -Position Sitting -Blood Pressure Location Left Arm Pain Scale: 0-10 Numeric [Pain] -Is Patient Pain Free? Yes WC - Visit Discharge [Visit Discharge Information] -Discharge Condition Stable -Ambulatory Status Ambulatory -Transportation Private Auto Musculoskeletal: No Muscle Wasting Neurological: Cranial nerves II-XII grossly intact Psych/Mental Status: Normal Affect Debridement Note Post-Debridement Measurements/Treatment WC - Nurse 2 - General Ulcer CM Notes Start: 01/26/20 10:27 Freq: Status: Active Protocol: Activity Type Activity Date Activity User E-Sign Co-Sign Detail Recorded Client Recorded Date Recorded By Document 01/26/20 11:17 MW [id number] 01/26/20 11:29 MW Document 02/02/20 11:22 MW [id number] 02/02/20 11:40 MW Document 02/09/20 11:41 MW [id number] 02/09/20 11:49 MW Document 02/16/20 09:18 MW [id number] 02/16/20 09:24 MW 01/26/20 02/02/20 02/09/20 11:17 11:22 11:41 Wound Center Nurse 2 #2- LLE CIRCUMFERENTIAL -Time 11:18 11:23 11:45 -Correct Patient Yes Yes Yes -Correct Side, Site, Position Yes Yes Yes -Correct Procedure Yes Yes Yes -Procedure Performed Yes Yes Yes -Type of Procedure Debridement Debridement Debridement -Clinical Debridement Subcutaneous Subcutaneous Subcutaneous -Tissue Removed Subcutaneous Subcutaneous Subcutaneous -Post Debridement (cm) - Length 20.0 20.0 16.5 -Post Debridement (cm) - Width 37.0 37.0 29.0 -Post Debridement (cm) - Depth 0.1 0.3 0.2 -Total Square (Post) (cm) 740.00 740.00 478.50 -Area of Debridement (cm) - Length 20.0 20.0 16.5 -Area of Debridement (cm) - Width 37.0 37.0 29.0 -Total Square (Area) (cm) 740.00 740.00 478.50 -Tunneling No No No -Undermining/Tunneling No No No -Circular Undermining No No No -Wound/Ulcer Outcome Not Healed Not Healed Not Healed -Ulcer Cleansing Rinsed/ Rinsed/ Rinsed/ Irrigated with Irrigated with Irrigated with Saline Saline Saline -Foul Odor after Cleansing No No No -Bioengineered Tissue No No No -Bleeding Controlled with Pressure Pressure Pressure -Offloading No No No -Treatment Response Procedure Procedure Tolerated Well Tolerated Well -Debridement - Subq, 1st 20sq cm Yes Yes Yes -Debridement, SubQ, ea addt'l 20sq cm 11 11 23 or part thereof #1- R LATERAL LE -Time 11:19 11:24 11:49 -Correct Patient Yes Yes Yes -Correct Side, Site, Position Yes Yes Yes -Correct Procedure Yes Yes Yes -Procedure Performed Yes No No -Type of Procedure Debridement -Clinical Debridement Subcutaneous -Tissue Removed Subcutaneous -Post Debridement (cm) - Length 7.0 0.1 0.1 -Post Debridement (cm) - Width 8.5 0.1 0.1 -Post Debridement (cm) - Depth 0.1 0.1 0.1 -Total Square (Post) (cm) 59.50 0.01 0.01 -Area of Debridement (cm) - Length 7.0 0.1 -Area of Debridement (cm) - Width 8.5 0.1 -Total Square (Area) (cm) 59.50 0.01 -Tunneling No No No -Undermining/Tunneling No No No -Circular Undermining No No No -Wound/Ulcer Outcome Not Healed Not Healed Not Healed -Ulcer Cleansing Rinsed/ Not Cleansed Not Cleansed Irrigated with Saline -Foul Odor after Cleansing No No -Bioengineered Tissue No No No -Bleeding Controlled with Pressure NA NA -Offloading No No No -Type of Offloading Surgical Shoe -Treatment Response Procedure Tolerated Well -Debridement - Subq, 1st 20sq cm No No -Debridement, SubQ, ea addt'l 20sq cm 2 or part thereof Pain Scale: 0-10 Numeric Is Patient Pain Free? Yes Yes Yes 02/16/20 09:18 Wound Center Nurse 2 #2- LLE CIRCUMFERENTIAL -Time 09:22 -Correct Patient Yes -Correct Side, Site, Position Yes -Correct Procedure Yes -Procedure Performed Yes -Type of Procedure Debridement -Clinical Debridement Subcutaneous -Tissue Removed Subcutaneous -Post Debridement (cm) - Length 15.5 -Post Debridement (cm) - Width 14.0 -Post Debridement (cm) - Depth 0.1 -Total Square (Post) (cm) 217.00 -Area of Debridement (cm) - Length 15.5 -Area of Debridement (cm) - Width 14.0 -Total Square (Area) (cm) 217.00 -Tunneling No -Undermining/Tunneling No -Circular Undermining No -Wound/Ulcer Outcome Not Healed -Ulcer Cleansing Rinsed/ Irrigated with Saline -Foul Odor after Cleansing No -Bioengineered Tissue No -Bleeding Controlled with Pressure -Offloading No -Treatment Response -Debridement - Subq, 1st 20sq cm Yes -Debridement, SubQ, ea addt'l 20sq cm 10 or part thereof #1- R LATERAL LE -Time 09:23 -Correct Patient Yes -Correct Side, Site, Position Yes -Correct Procedure Yes -Procedure Performed No -Type of Procedure -Clinical Debridement -Tissue Removed -Post Debridement (cm) - Length 0 -Post Debridement (cm) - Width 0 -Post Debridement (cm) - Depth 0 -Total Square (Post) (cm) 0 -Area of Debridement (cm) - Length -Area of Debridement (cm) - Width -Total Square (Area) (cm) -Tunneling No -Undermining/Tunneling No -Circular Undermining No -Wound/Ulcer Outcome Healed- Epithelialized -Ulcer Cleansing -Foul Odor after Cleansing -Bioengineered Tissue -Bleeding Controlled with -Offloading -Type of Offloading -Treatment Response -Debridement - Subq, 1st 20sq cm -Debridement, SubQ, ea addt'l 20sq cm or part thereof Pain Scale: 0-10 Numeric Is Patient Pain Free? Yes WC - Nurse 3 - General Ulcer D/C NN Start: 01/26/20 10:27 Freq: Status: Active Protocol: Activity Type Activity Date Activity User E-Sign Co-Sign Detail Recorded Client Recorded Date Recorded By Document 01/26/20 11:58 [facility] [id number] 01/26/20 12:00 BM Document 02/02/20 11:51 [facility] [id number] 02/02/20 11:53 BMF Document 02/09/20 11:53 MW [id number] 02/09/20 11:58 MW Document 02/16/20 10:04 MS [id number] 02/16/20 10:06 MS 01/26/20 02/02/20 02/09/20 11:58 11:51 11:53 Wound Care Nurse 3 #2- LLE CIRCUMFERENTIAL -Ulcer Cleansing Rinsed/ Rinsed/ Rinsed/ Irrigated with Irrigated with Irrigated with Saline Saline Saline -Foul Odor after Cleansing No No No -Negative Pressure Wound Therapy N/A -Primary Dressing Applied NonAdherent NonAdherent Contact Layer Contact Layer, Other -Other Dressing xeroform, HYDROGEL c.hydrogel, hydrogel xeroform -Primary Dressing Covered/Secured with Dry Gauze & Dry Gauze & Dry Gauze & Roll Gauze, Roll Gauze, Roll Gauze, Secured with Secured with Secured with Tape,Other Tape,Other Tape -Other Covering abd ABD -Fibracol Plus 4x4 #1- R LATERAL LE -Ulcer Cleansing Rinsed/ Rinsed/ Rinsed/ Irrigated with Irrigated with Irrigated with Saline Saline Saline -Foul Odor after Cleansing No No No -Negative Pressure Wound Therapy N/A -Primary Dressing Applied NonAdherent NonAdherent Contact Layer Contact Layer, Other -Other Dressing HYDROGEL xeroform -Primary Dressing Covered/Secured with Dry Gauze & Dry Gauze & Roll Gauze, Roll Gauze, Secured with Secured with Tape,Other Tape,Other -Other Covering abd ABD Right -Lotion applied to leg before No compression wrap -Multi-Layered Wrap Application Multi-Layer Comp - Right ($ ) -Compression Wrap Julio Cesar Wrap Julio Cesar Wrap Left -Lotion applied to leg before No compression wrap -Multi-Layered Wrap Application -Compression Wrap Julio Cesar Wrap Julio Cesar Wrap Julio Cesar Wrap Treatment Response Procedure Procedure Procedure Tolerated Well Tolerated Well Tolerated Well Vital Signs Pulse Rate (60-100 beats/min) 80 67 Pulse Location Monitor Monitor Respiratory Rate (12-18 breaths/min) 18 16 Respiratory rate source Monitor Observation Oxygen Delivery Method Room Air Blood Pressure (90/60-120/80 mm Hg) 125/62 H 124/60 H Blood Pressure Mean (mm Hg) 83 81 Source Monitor Monitor Position Sitting Sitting Blood Pressure Location Left Arm Right Arm Pain Scale: 0-10 Numeric Is Patient Pain Free? Yes Yes Yes Teaching: Wound Center Dressing Your Wound -Person Taught Patient -Teaching Method Discussion, Demonstration -Response to teaching Verbalize understanding WC - Visit Discharge Discharge Condition Stable Stable Stable Ambulatory Status Ambulatory,Cane Ambulatory Ambulatory Transportation Private Auto Private Auto Private Auto Accompanied by self Medication Reconcilliation completed & No provided to patient/care provider Clinical Summary of Care Provided Yes Facility Type [facility] 02/16/20 10:04 Wound Care Nurse 3 #2- LLE CIRCUMFERENTIAL -Ulcer Cleansing -Foul Odor after Cleansing -Negative Pressure Wound Therapy -Primary Dressing Applied Fibracol Plus 4x4,NonAdherent Contact Layer -Other Dressing -Primary Dressing Covered/Secured with Dry Gauze, Secured with Tape -Other Covering -Fibracol Plus 4x4 1 #1- R LATERAL LE -Ulcer Cleansing -Foul Odor after Cleansing -Negative Pressure Wound Therapy -Primary Dressing Applied -Other Dressing -Primary Dressing Covered/Secured with -Other Covering Right -Lotion applied to leg before compression wrap -Multi-Layered Wrap Application Multi-Layer Comp - Right ($ ) -Compression Wrap Left -Lotion applied to leg before compression wrap -Multi-Layered Wrap Application Multi-Layer Comp - Left ($) -Compression Wrap Treatment Response Vital Signs Pulse Rate (60-100 beats/min) 72 Pulse Location Respiratory Rate (12-18 breaths/min) Respiratory rate source Oxygen Delivery Method Blood Pressure (90/60-120/80 mm Hg) 120/72 Blood Pressure Mean (mm Hg) 88 Source Monitor Position Sitting Blood Pressure Location Left Arm Pain Scale: 0-10 Numeric Is Patient Pain Free? Yes Teaching: Wound Center Dressing Your Wound -Person Taught -Teaching Method -Response to teaching WC - Visit Discharge Discharge Condition Stable Ambulatory Status Ambulatory Transportation Private Auto Accompanied by Medication Reconcilliation completed & provided to patient/care provider Clinical Summary of Care Provided Facility Type Wound debrided: Left Leg cluster Type of Debridement: Excisional debridement Anesthesia Used: 4% Lidocaine Solution Depth: Down to and including healthy tissue, in the subcutaneous layer Percentage of wound debrided: 100 Instrument Used: 7mm curette Tissue Removed: Slough and devitalized tissue Severity: Fat Layer Exposed Amount of bleeding with debridement: Mild Bleeding Controlled with: Pressure Patient tolerated procedure well Assessment/Plan Active Problems Bilateral cellulitis of lower leg (Acute) Stasis dermatitis of both legs (Chronic) CKD (chronic kidney disease) stage 3, GFR 30-59 ml/min (Chronic) Ulcer of left lower extremity with fat layer exposed (Chronic) Ulcer of right lower extremity with fat layer exposed (Chronic) Type 2 diabetes mellitus (Chronic) Bilateral lower extremity edema (Chronic) Assessment: Nonhealing bilateral lower extremity ulcers, left greater than right. Significant left eschar to left leg ( lateral ). Poorly controlled diabetes mellitus. Chronic bilateral lower extremity edema. Plan: Debridement done as documented above, procedure was well-tolerated. Slough burden has significantly improved however patient wet press tender. Cultures taken. Fibracol to left lower extremity with Xeroform over top. 3M wraps for edema management. May change by home health. Optimal diabetes management strongly recommended. Elevate lower extremity when seated and in bed. Increase protein intake, vitamin C and zinc. His questions were answered and he was advised to call with any further questions or concerns. Follow-up in a week. This note was generated with [employer] dictation software. It may contain incorrect words, spelling, and punctuation that were not noted in checking the note before signing. [id number]: [id number] June subq tissue 20 sq cm/< Add On Codes: 40419 June subq tissue add-on - Additional Sq Cm debrided, please refer to clinical note.
[2020-02-23 09:13] VITALS: BMI 36.1
[2020-02-23 09:26] VITALS: BP 108/50; PULSE 83; RESP 16; TEMP 35.7; BMI 36.1
--- NOTE | 2020-02-23 12:24 | PCM.WC.PN ---
(1) Ulcer of left lower extremity with fat layer exposed Status: Chronic Code(s): L97.922 - Non-pressure chronic ulcer of unspecified part of left lower leg with fat layer exposed (2) Ulcer of right lower extremity with fat layer exposed Status: Chronic Code(s): L97.912 - Non-pressure chronic ulcer of unspecified part of right lower leg with fat layer exposed (3) Type 2 diabetes mellitus Status: Chronic Code(s): E11.9 - Type 2 diabetes mellitus without complications (4) Bilateral lower extremity edema Status: Chronic Code(s): R60.0 - Localized edema (5) Bilateral cellulitis of lower leg Status: Acute Code(s): L03.116 - Cellulitis of left lower limb; L03.115 - Cellulitis of right lower limb (6) Stasis dermatitis of both legs Status: Chronic Code(s): I87.2 - Venous insufficiency (chronic) (peripheral) (7) CKD (chronic kidney disease) stage 3, GFR 30-59 ml/min Status: Chronic Code(s): N18.3 - Chronic kidney disease, stage 3 (moderate) Type of Wound Date of Service: 02/23/20 Chief Complaint: Nonhealing bilateral leg ulcers History of Wound: Mr. Garcia is a 64-year-old who was referred to the wound center due to nonhealing bilateral leg ulcers. Had presented to the emergency room at [facility] on the 05 of January due to significant bilateral lower extremity pain and redness. Managed for bilateral leg cellulitis. Discharged on the . Ulcers have been managed at home by home health. Was on Omnicef at discharge. Still reports significant predominantly left lower extremity pain. Edema is persistent. History of diabetes mellitus type 2 which is not well controlled, fasting blood glucose this morning said to be 178. He denies chills, fever, nausea or vomiting. Progress of Wound: No new concerns at this time. Ulcers are improving. Right lower extremity edema also improving. - Physical Exam Vital Signs Temp Pulse Resp BP 96.3 F L 83 16 108/50 L 02/23/20 09:26 02/23/20 09:26 02/23/20 09:26 02/23/20 09:26 General: Alert, Oriented x3, Cooperative, No apparent distress HEENT: Atraumatic, Normocephalic Oral: Moist Mucosa Neck: Supple Lungs: Normal air movement Abdomen: Non Tender, Obese Extremities: No cyanosis, Edema Skin: Ulcer/ Wound Wound Measurements and Assessment WC - Nurse 1 - General Ulcer Measurement Start: 01/26/20 10:27 Freq: Status: Active Protocol: Activity Type Activity Date Activity User E-Sign Co-Sign Detail Recorded Client Recorded Date Recorded By Document 02/23/20 09:13 PL [id number] 02/23/20 09:24 PL 02/23/20 09:13 Wound Center Nurse 1 [Ulcer Assessment] #2- Left lateral le -Combined with other wound No -Current Size (cm) - Length 14 -Current Size (cm) - Width 15 -Current Size (cm) - Depth 0.1 -Total Square Cm 210 -Photo Taken No -Epithelialization Small 1-33% -Tunneling No -Undermining/Tunneling No -Exudate Amt Large -Exudate Type Serosanguineous -Granulation Amt Medium (34-66%) -Granulation Quality [place] -Slough/Fibrin Yes -Necrosis Amt Medium (34-66%) -Necrotic Tissue Type Adherent Slough -Texture (Reina-wound Skin Appearance) No Abnormality -Moisture (Reina-wound Skin Appearance No Abnormality ) -Color (Reina-wound Skin Appearance) No Abnormality -Temperature (Reina-wound Skin No Abnormality Appearance) (Pt Warm) -Ulcer Cleansing Soap and Water -Anesthetic Used 4% Lidocaine Solution [Edema Assessment] -Right Calf (cm) 47 -Point of measurement (cm from the 30 medial instep) -Right Ankle (cm) 33 -Point of Measurement (cm from the 15 medial instep) -Left Calf (cm) 45.5 -Point of measurement (cm from the 29 medial instep) -Left Ankle (cm) 33 -Point of Measurement (cm from the 14 medial instep) WC - Nurse 2 - General Ulcer CM Notes Start: 01/26/20 10:27 Freq: Status: Active Protocol: Activity Type Activity Date Activity User E-Sign Co-Sign Detail Recorded Client Recorded Date Recorded By Document 02/23/20 09:41 MW [id number] 02/23/20 09:47 MW 02/23/20 09:41 Wound Center Nurse 2 [Procedure/Treatment] #2- Left lateral le -Time 09:42 -Correct Patient Yes -Correct Side, Site, Position Yes -Correct Procedure Yes -Procedure Performed Yes -Type of Procedure Debridement -Clinical Debridement Subcutaneous -Tissue Removed Subcutaneous -Post Debridement (cm) - Length 15.0 -Post Debridement (cm) - Width 13.0 -Post Debridement (cm) - Depth 0.1 -Total Square (Post) (cm) 195.00 -Area of Debridement (cm) - Length 15.0 -Area of Debridement (cm) - Width 13.0 -Total Square (Area) (cm) 195.00 -Tunneling No -Undermining/Tunneling No -Circular Undermining No -Wound/Ulcer Outcome Not Healed -Ulcer Cleansing Rinsed/ Irrigated with Saline -Foul Odor after Cleansing No -Bioengineered Tissue No -Bleeding Controlled with Pressure -Offloading No -Debridement - Subq, 1st 20sq cm Yes -Debridement, SubQ, ea addt'l 20sq cm 9 or part thereof [See Physician Procedure note for Specifics] Pain Scale: 0-10 Numeric [Pain] -Is Patient Pain Free? Yes - Nurse 3 - General Ulcer D/C NN Start: 01/26/20 10:27 Freq: Status: Active Protocol: Activity Type Activity Date Activity User E-Sign Co-Sign Detail Recorded Client Recorded Date Recorded By Document 02/23/20 10:08 DL [id number] 02/23/20 10:09 DL 02/23/20 10:08 Wound Care Nurse 3 [Wound Dressing] #2- Left lateral le -Ulcer Cleansing Rinsed/ Irrigated with Saline -Foul Odor after Cleansing No -Primary Dressing Applied Fibracol Plus 4x4,NonAdherent Contact Layer -Other Dressing xeroform -Primary Dressing Covered/Secured Dry Gauze with -Fibracol Plus 4x4 1 [Compression Applied] Right -Lotion applied to leg before Yes compression wrap -Multi-Layered Wrap Application Multi-Layer Comp - Right ($ ) Left -Multi-Layered Wrap Application Multi-Layer Comp - Left ($) [Post Procedure Tolerated] -Treatment Response Procedure Tolerated Well Pain Scale: 0-10 Numeric [Pain] -Is Patient Pain Free? Yes - Visit Discharge [Visit Discharge Information] -Discharge Condition Stable -Ambulatory Status Ambulatory -Transportation Private Auto Musculoskeletal: No Muscle Wasting Neurological: Cranial nerves II-XII grossly intact Psych/Mental Status: Normal Affect Debridement Note Post-Debridement Measurements/Treatment WC - Nurse 2 - General Ulcer CM Notes Start: 01/26/20 10:27 Freq: Status: Active Protocol: Activity Type Activity Date Activity User E-Sign Co-Sign Detail Recorded Client Recorded Date Recorded By Document 01/26/20 11:17 MW [id number] 01/26/20 11:29 MW Document 02/02/20 11:22 MW [id number] 02/02/20 11:40 MW Document 02/09/20 11:41 MW [id number] 02/09/20 11:49 MW Document 02/16/20 09:18 MW [id number] 02/16/20 09:24 MW Document 02/23/20 09:41 MW [id number] 02/23/20 09:47 MW 01/26/20 02/02/20 02/09/20 11:17 11:22 11:41 Wound Center Nurse 2 #2- Left lateral le -Time 11:18 11:23 11:45 -Correct Patient Yes Yes Yes -Correct Side, Site, Position Yes Yes Yes -Correct Procedure Yes Yes Yes -Procedure Performed Yes Yes Yes -Type of Procedure Debridement Debridement Debridement -Clinical Debridement Subcutaneous Subcutaneous Subcutaneous -Tissue Removed Subcutaneous Subcutaneous Subcutaneous -Post Debridement (cm) - Length 20.0 20.0 16.5 -Post Debridement (cm) - Width 37.0 37.0 29.0 -Post Debridement (cm) - Depth 0.1 0.3 0.2 -Total Square (Post) (cm) 740.00 740.00 478.50 -Area of Debridement (cm) - Length 20.0 20.0 16.5 -Area of Debridement (cm) - Width 37.0 37.0 29.0 -Total Square (Area) (cm) 740.00 740.00 478.50 -Tunneling No No No -Undermining/Tunneling No No No -Circular Undermining No No No -Wound/Ulcer Outcome Not Healed Not Healed Not Healed -Ulcer Cleansing Rinsed/ Rinsed/ Rinsed/ Irrigated with Irrigated with Irrigated with Saline Saline Saline -Foul Odor after Cleansing No No No -Bioengineered Tissue No No No -Bleeding Controlled with Pressure Pressure Pressure -Offloading No No No -Treatment Response Procedure Procedure Tolerated Well Tolerated Well -Debridement - Subq, 1st 20sq cm Yes Yes Yes -Debridement, SubQ, ea addt'l 20sq cm 11 11 23 or part thereof #1- R LATERAL LE -Time 11:19 11:24 11:49 -Correct Patient Yes Yes Yes -Correct Side, Site, Position Yes Yes Yes -Correct Procedure Yes Yes Yes -Procedure Performed Yes No No -Type of Procedure Debridement -Clinical Debridement Subcutaneous -Tissue Removed Subcutaneous -Post Debridement (cm) - Length 7.0 0.1 0.1 -Post Debridement (cm) - Width 8.5 0.1 0.1 -Post Debridement (cm) - Depth 0.1 0.1 0.1 -Total Square (Post) (cm) 59.50 0.01 0.01 -Area of Debridement (cm) - Length 7.0 0.1 -Area of Debridement (cm) - Width 8.5 0.1 -Total Square (Area) (cm) 59.50 0.01 -Tunneling No No No -Undermining/Tunneling No No No -Circular Undermining No No No -Wound/Ulcer Outcome Not Healed Not Healed Not Healed -Ulcer Cleansing Rinsed/ Not Cleansed Not Cleansed Irrigated with Saline -Foul Odor after Cleansing No No -Bioengineered Tissue No No No -Bleeding Controlled with Pressure NA NA -Offloading No No No -Type of Offloading Surgical Shoe -Treatment Response Procedure Tolerated Well -Debridement - Subq, 1st 20sq cm No No -Debridement, SubQ, ea addt'l 20sq cm 2 or part thereof Pain Scale: 0-10 Numeric Is Patient Pain Free? Yes Yes Yes 02/16/20 02/23/20 09:18 09:41 Wound Center Nurse 2 #2- Left lateral le -Time 09:22 09:42 -Correct Patient Yes Yes -Correct Side, Site, Position Yes Yes -Correct Procedure Yes Yes -Procedure Performed Yes Yes -Type of Procedure Debridement Debridement -Clinical Debridement Subcutaneous Subcutaneous -Tissue Removed Subcutaneous Subcutaneous -Post Debridement (cm) - Length 15.5 15.0 -Post Debridement (cm) - Width 14.0 13.0 -Post Debridement (cm) - Depth 0.1 0.1 -Total Square (Post) (cm) 217.00 195.00 -Area of Debridement (cm) - Length 15.5 15.0 -Area of Debridement (cm) - Width 14.0 13.0 -Total Square (Area) (cm) 217.00 195.00 -Tunneling No No -Undermining/Tunneling No No -Circular Undermining No No -Wound/Ulcer Outcome Not Healed Not Healed -Ulcer Cleansing Rinsed/ Rinsed/ Irrigated with Irrigated with Saline Saline -Foul Odor after Cleansing No No -Bioengineered Tissue No No -Bleeding Controlled with Pressure Pressure -Offloading No No -Treatment Response -Debridement - Subq, 1st 20sq cm Yes Yes -Debridement, SubQ, ea addt'l 20sq cm 10 9 or part thereof #1- R LATERAL LE -Time 09:23 -Correct Patient Yes -Correct Side, Site, Position Yes -Correct Procedure Yes -Procedure Performed No -Type of Procedure -Clinical Debridement -Tissue Removed -Post Debridement (cm) - Length 0 -Post Debridement (cm) - Width 0 -Post Debridement (cm) - Depth 0 -Total Square (Post) (cm) 0 -Area of Debridement (cm) - Length -Area of Debridement (cm) - Width -Total Square (Area) (cm) -Tunneling No -Undermining/Tunneling No -Circular Undermining No -Wound/Ulcer Outcome Healed- Epithelialized -Ulcer Cleansing -Foul Odor after Cleansing -Bioengineered Tissue -Bleeding Controlled with -Offloading -Type of Offloading -Treatment Response -Debridement - Subq, 1st 20sq cm -Debridement, SubQ, ea addt'l 20sq cm or part thereof Pain Scale: 0-10 Numeric Is Patient Pain Free? Yes Yes WC - Nurse 3 - General Ulcer D/C NN Start: 01/26/20 10:27 Freq: Status: Active Protocol: Activity Type Activity Date Activity User E-Sign Co-Sign Detail Recorded Client Recorded Date Recorded By Document 01/26/20 11:58 [facility] [id number] 01/26/20 12:00 BMF Document 02/02/20 11:51 BMF [id number] 02/02/20 11:53 BMF Document 02/09/20 11:53 MW [id number] 02/09/20 11:58 MW Document 02/16/20 10:04 MS [id number] 02/16/20 10:06 MS Document 02/23/20 10:08 DL [id number] 02/23/20 10:09 DL 01/26/20 02/02/20 02/09/20 11:58 11:51 11:53 Wound Care Nurse 3 #2- Left lateral le -Ulcer Cleansing Rinsed/ Rinsed/ Rinsed/ Irrigated with Irrigated with Irrigated with Saline Saline Saline -Foul Odor after Cleansing No No No -Negative Pressure Wound Therapy N/A -Primary Dressing Applied NonAdherent NonAdherent Contact Layer Contact Layer, Other -Other Dressing xeroform, HYDROGEL c.hydrogel, hydrogel xeroform -Primary Dressing Covered/Secured with Dry Gauze & Dry Gauze & Dry Gauze & Roll Gauze, Roll Gauze, Roll Gauze, Secured with Secured with Secured with Tape,Other Tape,Other Tape -Other Covering abd ABD -Fibracol Plus 4x4 #1- R LATERAL LE -Ulcer Cleansing Rinsed/ Rinsed/ Rinsed/ Irrigated with Irrigated with Irrigated with Saline Saline Saline -Foul Odor after Cleansing No No No -Negative Pressure Wound Therapy N/A -Primary Dressing Applied NonAdherent NonAdherent Contact Layer Contact Layer, Other -Other Dressing HYDROGEL xeroform -Primary Dressing Covered/Secured with Dry Gauze & Dry Gauze & Roll Gauze, Roll Gauze, Secured with Secured with Tape,Other Tape,Other -Other Covering abd ABD Right -Lotion applied to leg before No compression wrap -Multi-Layered Wrap Application Multi-Layer Comp - Right ($ ) -Compression Wrap Julio Cesar Wrap Julio Cesar Wrap Left -Lotion applied to leg before No compression wrap -Multi-Layered Wrap Application -Compression Wrap Julio Cesar Wrap Julio Cesar Wrap Julio Cesar Wrap Treatment Response Procedure Procedure Procedure Tolerated Well Tolerated Well Tolerated Well Vital Signs Pulse Rate (60-100 beats/min) 80 67 Pulse Location Monitor Monitor Respiratory Rate (12-18 breaths/min) 18 16 Respiratory rate source Monitor Observation Oxygen Delivery Method Room Air Blood Pressure (90/60-120/80 mm Hg) 125/62 H 124/60 H Blood Pressure Mean (mm Hg) 83 81 Source Monitor Monitor Position Sitting Sitting Blood Pressure Location Left Arm Right Arm Pain Scale: 0-10 Numeric Is Patient Pain Free? Yes Yes Yes Teaching: Wound Center Dressing Your Wound -Person Taught Patient -Teaching Method Discussion, Demonstration -Response to teaching Verbalize understanding WC - Visit Discharge Discharge Condition Stable Stable Stable Ambulatory Status Ambulatory,Cane Ambulatory Ambulatory Transportation Private Auto Private Auto Private Auto Accompanied by self Medication Reconcilliation completed & No provided to patient/care provider Clinical Summary of Care Provided Yes Facility Type Home Health Home Health 02/16/20 02/23/20 10:04 10:08 Wound Care Nurse 3 #2- Left lateral le -Ulcer Cleansing Rinsed/ Irrigated with Saline -Foul Odor after Cleansing No -Negative Pressure Wound Therapy -Primary Dressing Applied Fibracol Plus Fibracol Plus 4x4,NonAdherent 4x4,NonAdherent Contact Layer Contact Layer -Other Dressing xeroform -Primary Dressing Covered/Secured with Dry Gauze, Dry Gauze Secured with Tape -Other Covering -Fibracol Plus 4x4 1 1 #1- R LATERAL LE -Ulcer Cleansing -Foul Odor after Cleansing -Negative Pressure Wound Therapy -Primary Dressing Applied -Other Dressing -Primary Dressing Covered/Secured with -Other Covering Right -Lotion applied to leg before Yes compression wrap -Multi-Layered Wrap Application Multi-Layer Multi-Layer Comp - Right ($ Comp - Right ($ ) ) -Compression Wrap Left -Lotion applied to leg before compression wrap -Multi-Layered Wrap Application Multi-Layer Multi-Layer Comp - Left ($) Comp - Left ($) -Compression Wrap Treatment Response Procedure Tolerated Well Vital Signs Pulse Rate (60-100 beats/min) 72 Pulse Location Respiratory Rate (12-18 breaths/min) Respiratory rate source Oxygen Delivery Method Blood Pressure (90/60-120/80 mm Hg) 120/72 Blood Pressure Mean (mm Hg) 88 Source Monitor Position Sitting Blood Pressure Location Left Arm Pain Scale: 0-10 Numeric Is Patient Pain Free? Yes Yes Teaching: Wound Center Dressing Your Wound -Person Taught -Teaching Method -Response to teaching WC - Visit Discharge Discharge Condition Stable Stable Ambulatory Status Ambulatory Ambulatory Transportation Private Auto Private Auto Accompanied by Medication Reconcilliation completed & provided to patient/care provider Clinical Summary of Care Provided Facility Type Wound debrided: Left Lower Extremity Type of Debridement: Excisional debridement Anesthesia Used: 4% Lidocaine Solution Depth: Down to and including healthy tissue, in the subcutaneous layer Instrument Used: 5mm curette Tissue Removed: Slough and devitalized tissue Severity: Fat Layer Exposed Amount of bleeding with debridement: Mild Bleeding Controlled with: Pressure Patient tolerated procedure well Assessment/Plan Active Problems Bilateral cellulitis of lower leg (Acute) Stasis dermatitis of both legs (Chronic) CKD (chronic kidney disease) stage 3, GFR 30-59 ml/min (Chronic) Ulcer of left lower extremity with fat layer exposed (Chronic) Ulcer of right lower extremity with fat layer exposed (Chronic) Type 2 diabetes mellitus (Chronic) Bilateral lower extremity edema (Chronic) Assessment: Nonhealing bilateral lower extremity ulcers, left greater than right. Significant left eschar to left leg ( lateral ). Poorly controlled diabetes mellitus. Chronic bilateral lower extremity edema. Plan: Debridement done as documented above, procedure was well-tolerated. Improving. Continue Fibracol to left lower extremity with Xeroform over top. 3M wraps for edema management. May change by home health. Optimal diabetes management strongly recommended. Elevate lower extremity when seated and in bed. Increase protein intake, vitamin C and zinc. His questions were answered and he was advised to call with any further questions or concerns. Follow-up in a week. This note was generated with [employer] dictation software. It may contain incorrect words, spelling, and punctuation that were not noted in checking the note before signing. [id number]: [id number] June subq tissue 20 sq cm/< Add On Codes: 08976 June subq tissue add-on - Additional Sq Cm debrided, please refer to clinical note.
== END 2020-02-25 23:59 ==
LOC: WC 09:15
PROVIDERS: PCP Family Medicine; Referring Provider Family Medicine; Visit Provider Internal Medicine
DX: E11.622 Type 2 diabetes mellitus with other skin ulcer (principal); R60.0 Localized edema; L97.812 Non-pressure chronic ulcer of other part of right lower leg with fat layer exposed; L97.822 Non-pressure chronic ulcer of other part of left lower leg with fat layer exposed; I13.0 Hypertensive heart and chronic kidney disease with heart failure and stage 1 through stage 4 chronic kidney disease, or unspecified chronic kidney disease; E11.22 Type 2 diabetes mellitus with diabetic chronic kidney disease; N18.30 Chronic kidney disease, stage 3 unspecified; E66.9 Obesity, unspecified; I87.2 Venous insufficiency (chronic) (peripheral); I50.22 Chronic systolic (congestive) heart failure; Z79.899 Other long term (current) drug therapy; Z79.4 Long term (current) use of insulin; Z79.82 Long term (current) use of aspirin; L03.116 Cellulitis of left lower limb; L03.115 Cellulitis of right lower limb
CPT/HCPCS: 11042; 11045; 29581; 87070; 87075; 87077; 87186; 87205; 99213; G0463

== ENCOUNTER 2020-03-15 08:45 | Outpatient (RCR) | payer MEDICARE, SELFPAY ==
[2020-02-26 00:07] VITALS: BP 108/50; PULSE 83; RESP 16; TEMP 35.7
[2020-03-01 09:28] VITALS: BP 120/58; PULSE 76; RESP 18; TEMP 36.1; BMI 36.1
[2020-03-01 10:30] VITALS: BP 122/58; PULSE 75
--- NOTE | 2020-03-01 10:58 | PCM.WC.PN ---
(1) Ulcer of left lower extremity with fat layer exposed Status: Chronic Code(s): L97.922 - Non-pressure chronic ulcer of unspecified part of left lower leg with fat layer exposed (2) Bilateral lower extremity edema Status: Chronic Code(s): R60.0 - Localized edema (3) Obesity (BMI 30-39.9) Status: Chronic Code(s): E66.9 - Obesity, unspecified (4) Stasis dermatitis of both legs Status: Chronic Code(s): I87.2 - Venous insufficiency (chronic) (peripheral) Type of Wound Date of Service: 03/01/20 Chief Complaint: Nonhealing bilateral leg ulcers History of Wound: Mr. Garcia is a 64-year-old who was referred to the wound center due to nonhealing bilateral leg ulcers. Had presented to the emergency room at [facility] on the 05 of January due to significant bilateral lower extremity pain and redness. Managed for bilateral leg cellulitis. Discharged on the . Ulcers have been managed at home by home health. Was on Omnicef at discharge. Still reports significant predominantly left lower extremity pain. Edema is persistent. History of diabetes mellitus type 2 which is not well controlled, fasting blood glucose this morning said to be 178. He denies chills, fever, nausea or vomiting. Progress of Wound: No new concerns at this time. Ulcers are improving. Right lower extremity edema also improving. - Physical Exam Vital Signs Temp Pulse Resp BP 97.0 F L 75 18 122/26 H 03/01/20 09:28 03/01/20 10:30 03/01/20 09:28 03/01/20 10:30 General: Alert, Oriented x3, Cooperative, No apparent distress HEENT: Atraumatic, Normocephalic Oral: Moist Mucosa Neck: Supple Lungs: Normal air movement Abdomen: Non Tender, Obese Extremities: No cyanosis, Edema Skin: Ulcer/ Wound Wound Measurements and Assessment WC - Nurse 1 - General Ulcer Measurement Start: 03/01/20 09:27 Freq: Status: Active Protocol: Activity Type Activity Date Activity User E-Sign Co-Sign Detail Recorded Client Recorded Date Recorded By Document 03/01/20 09:28 UT [id number] 03/01/20 09:49 MT 03/01/20 09:28 Wound Center Nurse 1 [Ulcer Assessment] #2- Left lateral le -Current Size (cm) - Length 9.5 -Current Size (cm) - Width 11.5 -Current Size (cm) - Depth 0.1 -Total Square Cm 109.25 -Exudate Amt Medium -Exudate Type Serosanguineous -Wound Margin Flat & Intact -Granulation Amt Medium (34-66%) -Granulation Quality Pale,[place] -Necrosis Amt Medium (34-66%) -Necrotic Tissue Type Adherent Slough -Texture (Reina-wound Skin Appearance) Assessed, Localized Edema -Moisture (Reina-wound Skin Appearance Assessed,Dry/ ) Scaly -Color (Reina-wound Skin Appearance) Assessed -Temperature (Reina-wound Skin No Abnormality Appearance) (Pt Warm) -Tenderness on Palpation (Reina-wound Yes Skin Appearance) -Ulcer Cleansing Wound Cleanser -Foul Odor after Cleansing No -Anesthetic Used 4% Lidocaine Solution [Edema Assessment] -Right Calf (cm) 46.2 -Right Ankle (cm) 30.7 -Left Calf (cm) 45.7 -Left Ankle (cm) 28.5 WC - Nurse 2 - General Ulcer CM Notes Start: 03/01/20 09:27 Freq: Status: Active Protocol: Activity Type Activity Date Activity User E-Sign Co-Sign Detail Recorded Client Recorded Date Recorded By Document 03/01/20 10:01 MW [id number] 03/01/20 10:06 MW 03/01/20 10:01 Wound Center Nurse 2 [Procedure/Treatment] #2- Left lateral le -Time 10:05 -Correct Patient Yes -Correct Side, Site, Position Yes -Correct Procedure Yes -Procedure Performed Yes -Type of Procedure Debridement -Clinical Debridement Subcutaneous -Tissue Removed Subcutaneous -Post Debridement (cm) - Length 14.3 -Post Debridement (cm) - Width 10.5 -Post Debridement (cm) - Depth 0.1 -Total Square (Post) (cm) 150.15 -Area of Debridement (cm) - Length 14.3 -Area of Debridement (cm) - Width 10.5 -Total Square (Area) (cm) 150.15 -Tunneling No -Undermining/Tunneling No -Circular Undermining No -Wound/Ulcer Outcome Not Healed -Ulcer Cleansing Rinsed/ Irrigated with Saline -Foul Odor after Cleansing No -Bioengineered Tissue No -Bleeding Controlled with Pressure -Offloading No -Treatment Response Procedure Tolerated Well -Debridement - Subq, 1st 20sq cm Yes -Debridement, SubQ, ea addt'l 20sq cm 7 or part thereof [See Physician Procedure note for Specifics] Pain Scale: 0-10 Numeric [Pain] -Is Patient Pain Free? Yes - Nurse 3 - General Ulcer D/C NN Start: 03/01/20 09:27 Freq: Status: Active Protocol: Activity Type Activity Date Activity User E-Sign Co-Sign Detail Recorded Client Recorded Date Recorded By Document 03/01/20 10:30 UT [id number] 03/01/20 10:32 UT 03/01/20 10:30 Wound Care Nurse 3 [Wound Dressing] #2- Left lateral le -Primary Dressing Applied Fibracol Plus 4x4 -Other Dressing XEROFORM -Primary Dressing Covered/Secured Dry Gauze, with Secured with Tape -Fibracol Plus 4x4 1 [Compression Applied] Right -Multi-Layered Wrap Application Multi-Layer Comp - Right ($ ) Left -Multi-Layered Wrap Application Multi-Layer Comp - Left ($) Vital Signs [Pulse] -Pulse Rate (60-100 beats/min) 75 -Pulse Location Monitor [Blood Pressure] -Blood Pressure (90/60-120/80 mm Hg) 122/26 H -Blood Pressure Mean (mm Hg) 58 -Source Monitor -Position Semi-Fowlers -Blood Pressure Location Left Arm - Visit Discharge [Visit Discharge Information] -Discharge Condition Stable -Ambulatory Status Ambulatory -Transportation Private Auto -Medication Reconcilliation completed No & provided to patient/care provider -Clinical Summary of Care Provided Yes Musculoskeletal: No Muscle Wasting Neurological: Cranial nerves II-XII grossly intact Psych/Mental Status: Normal Affect Debridement Note Post-Debridement Measurements/Treatment - Nurse 2 - General Ulcer CM Notes Start: 03/01/20 09:27 Freq: Status: Active Protocol: Activity Type Activity Date Activity User E-Sign Co-Sign Detail Recorded Client Recorded Date Recorded By Document 03/01/20 10:01 [id number] 03/01/20 10:06 03/01/20 10:01 Wound Center Nurse 2 #2- Left lateral le -Time 10:05 -Correct Patient Yes -Correct Side, Site, Position Yes -Correct Procedure Yes -Procedure Performed Yes -Type of Procedure Debridement -Clinical Debridement Subcutaneous -Tissue Removed Subcutaneous -Post Debridement (cm) - Length 14.3 -Post Debridement (cm) - Width 10.5 -Post Debridement (cm) - Depth 0.1 -Total Square (Post) (cm) 150.15 -Area of Debridement (cm) - Length 14.3 -Area of Debridement (cm) - Width 10.5 -Total Square (Area) (cm) 150.15 -Tunneling No -Undermining/Tunneling No -Circular Undermining No -Wound/Ulcer Outcome Not Healed -Ulcer Cleansing Rinsed/ Irrigated with Saline -Foul Odor after Cleansing No -Bioengineered Tissue No -Bleeding Controlled with Pressure -Offloading No -Treatment Response Procedure Tolerated Well -Debridement - Subq, 1st 20sq cm Yes -Debridement, SubQ, ea addt'l 20sq cm 7 or part thereof Pain Scale: 0-10 Numeric Is Patient Pain Free? Yes - Nurse 3 - General Ulcer D/C NN Start: 03/01/20 09:27 Freq: Status: Active Protocol: Activity Type Activity Date Activity User E-Sign Co-Sign Detail Recorded Client Recorded Date Recorded By Document 03/01/20 10:30 UT [id number] 03/01/20 10:32 UT 03/01/20 10:30 Wound Care Nurse 3 #2- Left lateral le -Primary Dressing Applied Fibracol Plus 4x4 -Other Dressing XEROFORM -Primary Dressing Covered/Secured with Dry Gauze, Secured with Tape -Fibracol Plus 4x4 1 Right -Multi-Layered Wrap Application Multi-Layer Comp - Right ($ ) Left -Multi-Layered Wrap Application Multi-Layer Comp - Left ($) Vital Signs Pulse Rate (60-100 beats/min) 75 Pulse Location Monitor Blood Pressure (90/60-120/80 mm Hg) 122/26 H Blood Pressure Mean (mm Hg) 58 Source Monitor Position Semi-Fowlers Blood Pressure Location Left Arm WC - Visit Discharge Discharge Condition Stable Ambulatory Status Ambulatory Transportation Private Auto Medication Reconcilliation completed & No provided to patient/care provider Clinical Summary of Care Provided Yes Wound debrided: Left Lateral Leg Cluster Type of Debridement: Excisional debridement Anesthesia Used: 4% Lidocaine Solution Depth: Down to and including healthy tissue, in the subcutaneous layer Percentage of wound debrided: 100 Instrument Used: 5mm curette Tissue Removed: Slough and devitalized tissue Severity: Fat Layer Exposed Amount of bleeding with debridement: Mild Bleeding Controlled with: Pressure Patient tolerated procedure well Assessment/Plan Active Problems Stasis dermatitis of both legs (Chronic) Obesity (BMI 30-39.9) (Chronic) Ulcer of left lower extremity with fat layer exposed (Chronic) Bilateral lower extremity edema (Chronic) Assessment: Nonhealing bilateral lower extremity ulcers, left greater than right. Significant left eschar to left leg ( lateral ). Poorly controlled diabetes mellitus. Chronic bilateral lower extremity edema. Plan: Debridement done as documented above, procedure was well-tolerated. Improving. Continue Fibracol to left lower extremity with Xeroform over top. 3M wraps for edema management. May change by home health. Optimal diabetes management strongly recommended. Elevate lower extremity when seated and in bed. Increase protein intake, vitamin C and zinc. His questions were answered and he was advised to call with any further questions or concerns. Follow-up in a week. This note was generated with [employer] dictation software. It may contain incorrect words, spelling, and punctuation that were not noted in checking the note before signing. [id number]: [id number] June subq tissue 20 sq cm/< Add On Codes: 09115 June subq tissue add-on - Additional Sq Cm debrided, please refer to clinical note.
[2020-03-08 09:54] VITALS: BP 125/61; PULSE 76; TEMP 36.1; BMI 36.1
--- NOTE | 2020-03-08 10:51 | PCM.WC.PN ---
(1) Ulcer of left lower extremity with fat layer exposed Status: Chronic Code(s): L97.922 - Non-pressure chronic ulcer of unspecified part of left lower leg with fat layer exposed (2) Bilateral lower extremity edema Status: Chronic Code(s): R60.0 - Localized edema (3) Obesity (BMI 30-39.9) Status: Chronic Code(s): E66.9 - Obesity, unspecified (4) Stasis dermatitis of both legs Status: Chronic Code(s): I87.2 - Venous insufficiency (chronic) (peripheral) Type of Wound Date of Service: 03/08/20 Chief Complaint: Nonhealing bilateral leg ulcers History of Wound: Mr. Garcia is a 64-year-old who was referred to the wound center due to nonhealing bilateral leg ulcers. Had presented to the emergency room at [facility] on the 05 of January due to significant bilateral lower extremity pain and redness. Managed for bilateral leg cellulitis. Discharged on the . Ulcers have been managed at home by home health. Was on Omnicef at discharge. Still reports significant predominantly left lower extremity pain. Edema is persistent. History of diabetes mellitus type 2 which is not well controlled, fasting blood glucose this morning said to be 178. He denies chills, fever, nausea or vomiting. Progress of Wound: Worsening bilateral lower extremity edema. Patient states that he was on his feet a lot this week. - Physical Exam Vital Signs Temp Pulse Resp BP 97.0 F L 76 18 125/61 H 03/08/20 09:54 03/08/20 09:54 03/01/20 09:28 03/08/20 09:54 General: Alert, Oriented x3, Cooperative, No apparent distress HEENT: Atraumatic, Normocephalic Oral: Moist Mucosa Neck: Supple Lungs: Normal air movement Abdomen: Non Tender, Obese Extremities: No cyanosis, Edema Skin: Ulcer/ Wound Wound Measurements and Assessment WC - Nurse 1 - General Ulcer Measurement Start: 03/01/20 09:27 Freq: Status: Active Protocol: Activity Type Activity Date Activity User E-Sign Co-Sign Detail Recorded Client Recorded Date Recorded By Document 03/08/20 09:54 [facility] [id number] 03/08/20 10:03 [facility] 03/08/20 09:54 Wound Center Nurse 1 [Ulcer Assessment] #2- Left lateral le -Current Size (cm) - Length 12.9 -Current Size (cm) - Width 11.0 -Current Size (cm) - Depth 0.1 -Total Square Cm 141.90 -Exudate Amt Large -Exudate Type Serosanguineous -Wound Margin Flat & Intact -Granulation Amt Medium (34-66%) -Granulation Quality Pale,[place],Red -Necrosis Amt Medium (34-66%) -Necrotic Tissue Type Adherent Slough -Texture (Reina-wound Skin Appearance) Assessed, Localized Edema -Moisture (Reina-wound Skin Appearance Assessed, ) Maceration -Color (Reina-wound Skin Appearance) Assessed, Erythema -Temperature (Reina-wound Skin No Abnormality Appearance) (Pt Warm) -Tenderness on Palpation (Reina-wound No Skin Appearance) -Ulcer Cleansing Rinsed/ Irrigated with Saline -Foul Odor after Cleansing No -Anesthetic Used 4% Lidocaine Solution [Edema Assessment] -Right Calf (cm) 46 -Right Ankle (cm) 33.5 -Left Calf (cm) 45.5 -Left Ankle (cm) 35.0 WC - Nurse 2 - General Ulcer CM Notes Start: 03/01/20 09:27 Freq: Status: Active Protocol: Activity Type Activity Date Activity User E-Sign Co-Sign Detail Recorded Client Recorded Date Recorded By Document 03/08/20 10:38 MW [id number] 03/08/20 10:39 MW 03/08/20 10:38 Wound Center Nurse 2 [Procedure/Treatment] #2- Left lateral le -Time 10:38 -Correct Patient Yes -Correct Side, Site, Position Yes -Correct Procedure Yes -Procedure Performed Yes -Type of Procedure Debridement -Clinical Debridement Subcutaneous -Tissue Removed Subcutaneous -Post Debridement (cm) - Length 12.2 -Post Debridement (cm) - Width 11.0 -Post Debridement (cm) - Depth 0.1 -Total Square (Post) (cm) 134.20 -Area of Debridement (cm) - Length 12.2 -Area of Debridement (cm) - Width 11.0 -Total Square (Area) (cm) 134.20 -Tunneling No -Undermining/Tunneling No -Circular Undermining No -Wound/Ulcer Outcome Not Healed -Ulcer Cleansing Rinsed/ Irrigated with Saline -Foul Odor after Cleansing No -Bioengineered Tissue No -Bleeding Controlled with Pressure -Offloading No -Treatment Response Procedure Tolerated Well -Debridement - Subq, 1st 20sq cm Yes -Debridement, SubQ, ea addt'l 20sq cm 6 or part thereof [See Physician Procedure note for Specifics] Pain Scale: 0-10 Numeric [Pain] -Is Patient Pain Free? Yes Musculoskeletal: No Muscle Wasting Neurological: Cranial nerves II-XII grossly intact Psych/Mental Status: Normal Affect Debridement Note Post-Debridement Measurements/Treatment WC - Nurse 2 - General Ulcer CM Notes Start: 03/01/20 09:27 Freq: Status: Active Protocol: Activity Type Activity Date Activity User E-Sign Co-Sign Detail Recorded Client Recorded Date Recorded By Document 03/01/20 10:01 MW [id number] 03/01/20 10:06 MW Document 03/08/20 10:38 MW [id number] 03/08/20 10:39 MW 03/01/20 03/08/20 10:01 10:38 Wound Center Nurse 2 #2- Left lateral le -Time 10:05 10:38 -Correct Patient Yes Yes -Correct Side, Site, Position Yes Yes -Correct Procedure Yes Yes -Procedure Performed Yes Yes -Type of Procedure Debridement Debridement -Clinical Debridement Subcutaneous Subcutaneous -Tissue Removed Subcutaneous Subcutaneous -Post Debridement (cm) - Length 14.3 12.2 -Post Debridement (cm) - Width 10.5 11.0 -Post Debridement (cm) - Depth 0.1 0.1 -Total Square (Post) (cm) 150.15 134.20 -Area of Debridement (cm) - Length 14.3 12.2 -Area of Debridement (cm) - Width 10.5 11.0 -Total Square (Area) (cm) 150.15 134.20 -Tunneling No No -Undermining/Tunneling No No -Circular Undermining No No -Wound/Ulcer Outcome Not Healed Not Healed -Ulcer Cleansing Rinsed/ Rinsed/ Irrigated with Irrigated with Saline Saline -Foul Odor after Cleansing No No -Bioengineered Tissue No No -Bleeding Controlled with Pressure Pressure -Offloading No No -Treatment Response Procedure Procedure Tolerated Well Tolerated Well -Debridement - Subq, 1st 20sq cm Yes Yes -Debridement, SubQ, ea addt'l 20sq cm 7 6 or part thereof Pain Scale: 0-10 Numeric Is Patient Pain Free? Yes Yes - Nurse 3 - General Ulcer D/C NN Start: 03/01/20 09:27 Freq: Status: Active Protocol: Activity Type Activity Date Activity User E-Sign Co-Sign Detail Recorded Client Recorded Date Recorded By Document 03/01/20 10:30 VT [id number] 03/01/20 10:32 VT 03/01/20 10:30 Wound Care Nurse 3 #2- Left lateral le -Primary Dressing Applied Fibracol Plus 4x4 -Other Dressing XEROFORM -Primary Dressing Covered/Secured with Dry Gauze, Secured with Tape -Fibracol Plus 4x4 1 Right -Multi-Layered Wrap Application Multi-Layer Comp - Right ($ ) Left -Multi-Layered Wrap Application Multi-Layer Comp - Left ($) Vital Signs Pulse Rate (60-100 beats/min) 75 Pulse Location Monitor Blood Pressure (90/60-120/80 mm Hg) 122/26 H Blood Pressure Mean (mm Hg) 58 Source Monitor Position Semi-Fowlers Blood Pressure Location Left Arm WC - Visit Discharge Discharge Condition Stable Ambulatory Status Ambulatory Transportation Private Auto Medication Reconcilliation completed & No provided to patient/care provider Clinical Summary of Care Provided Yes Wound debrided: Left Lateral Cluster Type of Debridement: Excisional debridement Anesthesia Used: 4% Lidocaine Solution Depth: Down to and including healthy tissue, in the subcutaneous layer Percentage of wound debrided: 100 Instrument Used: 5mm curette Tissue Removed: Slough and devitalized tissue Severity: Fat Layer Exposed Amount of bleeding with debridement: Mild Bleeding Controlled with: Pressure Patient tolerated procedure well Assessment/Plan Active Problems Stasis dermatitis of both legs (Chronic) Obesity (BMI 30-39.9) (Chronic) Ulcer of left lower extremity with fat layer exposed (Chronic) Bilateral lower extremity edema (Chronic) Assessment: Nonhealing bilateral lower extremity ulcers, left greater than right. Significant left eschar to left leg ( lateral ). Poorly controlled diabetes mellitus. Chronic bilateral lower extremity edema. Plan: Debridement done as documented above, procedure was well-tolerated. Worsening lower extremity edema. Drainage and maceration also noted. Switch to Aquacel extra. Continue 3M wrap. Change on Thursday by home health. Optimal diabetes management strongly recommended. Strongly advised to elevate lower extremity when seated and in bed. Increase protein intake, vitamin C and zinc. His questions were answered and he was advised to call with any further questions or concerns. Follow-up in a week. This note was generated with [employer] software. It may contain incorrect words, spelling, and punctuation that were not noted in checking the note before signing. [id number]: [id number] June subq tissue 20 sq cm/< Add On Codes: [id number] June subq tissue add-on - Additional square centimeters debrided, please refer to clinical note.
[2020-03-08 11:03] VITALS: BP 122/60; PULSE 75
[2020-03-15 08:33] VITALS: BP 119/71; PULSE 82; TEMP 36; BMI 36.1
--- NOTE | 2020-03-15 12:10 | PCM.WC.PN ---
(1) Ulcer of left lower extremity with fat layer exposed Status: Chronic Code(s): L97.922 - Non-pressure chronic ulcer of unspecified part of left lower leg with fat layer exposed (2) Bilateral lower extremity edema Status: Chronic Code(s): R60.0 - Localized edema (3) Obesity (BMI 30-39.9) Status: Chronic Code(s): E66.9 - Obesity, unspecified (4) Stasis dermatitis of both legs Status: Chronic Code(s): I87.2 - Venous insufficiency (chronic) (peripheral) Type of Wound Date of Service: 03/15/20 Chief Complaint: Nonhealing bilateral leg ulcers History of Wound: Mr. Garcia is a 64-year-old who was referred to the wound center due to nonhealing bilateral leg ulcers. Had presented to the emergency room at [facility] on the 05 of January due to significant bilateral lower extremity pain and redness. Managed for bilateral leg cellulitis. Discharged on the . Ulcers have been managed at home by home health. Was on Omnicef at discharge. Still reports significant predominantly left lower extremity pain. Edema is persistent. History of diabetes mellitus type 2 which is not well controlled, fasting blood glucose this morning said to be 178. He denies chills, fever, nausea or vomiting. Progress of Wound: No significant change in the past week. Patient denies any concerns. - Physical Exam Vital Signs Temp Pulse Resp BP 96.8 F L 82 18 119/71 03/15/20 08:33 03/15/20 08:33 03/01/20 09:28 03/15/20 08:33 General: Alert, Oriented x3, Cooperative, No apparent distress HEENT: Atraumatic, Normocephalic Oral: Moist Mucosa Neck: Supple Lungs: Normal air movement Abdomen: Non Tender, Obese Extremities: No cyanosis, Edema Skin: Ulcer/ Wound Wound Measurements and Assessment WC - Nurse 1 - General Ulcer Measurement Start: 03/01/20 09:27 Freq: Status: Active Protocol: Activity Type Activity Date Activity User E-Sign Co-Sign Detail Recorded Client Recorded Date Recorded By Document 03/15/20 08:33 RAÚL [id number] 03/15/20 08:49 RAÚL 03/15/20 08:33 Wound Center Nurse 1 [Ulcer Assessment] #2- Left lateral le -Current Size (cm) - Length 5 -Current Size (cm) - Width 7.8 -Current Size (cm) - Depth 0.1 -Total Square Cm 39.0 -Photo Taken No -Wound Margin Distinct, Outline Attached -Granulation Amt Large (67-100%) -Granulation Quality Hyper- granulation,Red -Necrosis Amt Large (67-100%) -Necrotic Tissue Type Adherent Slough -Texture (Reina-wound Skin Appearance) Assessed, Scarring -Moisture (Reina-wound Skin Appearance Assessed,Dry/ ) Scaly -Color (Reina-wound Skin Appearance) Assessed, Erythema -Temperature (Reina-wound Skin No Abnormality Appearance) (Pt Warm) -Tenderness on Palpation (Reina-wound Yes Skin Appearance) -Ulcer Cleansing soapy water -Foul Odor after Cleansing No -Anesthetic Used 4% Lidocaine Solution [Edema Assessment] -Right Calf (cm) 49 -Right Ankle (cm) 35 -Left Calf (cm) 46.5 -Left Ankle (cm) 31 WC - Nurse 2 - General Ulcer CM Notes Start: 03/01/20 09:27 Freq: Status: Active Protocol: Activity Type Activity Date Activity User E-Sign Co-Sign Detail Recorded Client Recorded Date Recorded By Document 03/15/20 09:17 MW [id number] 03/15/20 09:23 MW 03/15/20 09:17 Wound Center Nurse 2 [Procedure/Treatment] #2- Left lateral le -Time 09:18 -Correct Patient Yes -Correct Side, Site, Position Yes -Correct Procedure Yes -Procedure Performed Yes -Type of Procedure Debridement -Clinical Debridement Subcutaneous -Tissue Removed Subcutaneous -Post Debridement (cm) - Length 15.0 -Post Debridement (cm) - Width 11.0 -Post Debridement (cm) - Depth 0.1 -Total Square (Post) (cm) 165.00 -Area of Debridement (cm) - Length 15.0 -Area of Debridement (cm) - Width 11.0 -Total Square (Area) (cm) 165.00 -Tunneling No -Undermining/Tunneling No -Circular Undermining No -Wound/Ulcer Outcome Not Healed -Ulcer Cleansing Rinsed/ Irrigated with Saline -Foul Odor after Cleansing No -Bioengineered Tissue No -Bleeding Controlled with Pressure -Offloading No -Treatment Response Procedure Tolerated Well -Debridement - Subq, 1st 20sq cm Yes -Debridement, SubQ, ea addt'l 20sq cm 8 or part thereof [See Physician Procedure note for Specifics] Pain Scale: 0-10 Numeric [Pain] -Is Patient Pain Free? Yes - Nurse 3 - General Ulcer D/C NN Start: 03/01/20 09:27 Freq: Status: Active Protocol: Activity Type Activity Date Activity User E-Sign Co-Sign Detail Recorded Client Recorded Date Recorded By Document 03/15/20 09:39 [facility] [id number] 03/15/20 09:40 [facility] 03/15/20 09:39 Wound Care Nurse 3 [Wound Dressing] #2- Left lateral le -Ulcer Cleansing Rinsed/ Irrigated with Saline -Foul Odor after Cleansing No -Primary Dressing Applied Aquacel AG 4x4 -Primary Dressing Covered/Secured Other with -Other Covering abd -Aquacel AG 4x4 1 [Compression Applied] Bilateral -Multi-Layered Wrap Application Multi-Layer Comp - Bilat ($ ) -Other xeroform applied to reddened areas [Post Procedure Tolerated] -Treatment Response Procedure Tolerated Well Pain Scale: 0-10 Numeric [Pain] -Is Patient Pain Free? Yes - Visit Discharge [Visit Discharge Information] -Discharge Condition Stable -Ambulatory Status Ambulatory -Transportation Private Auto [Facility Notification] -Facility Type Home Health Musculoskeletal: No Muscle Wasting Neurological: Cranial nerves II-XII grossly intact Psych/Mental Status: Normal Affect Debridement Note Post-Debridement Measurements/Treatment - Nurse 2 - General Ulcer CM Notes Start: 03/01/20 09:27 Freq: Status: Active Protocol: Activity Type Activity Date Activity User E-Sign Co-Sign Detail Recorded Client Recorded Date Recorded By Document 03/01/20 10:01 MW [id number] 03/01/20 10:06 MW Document 03/08/20 10:38 MW [id number] 03/08/20 10:39 MW Document 03/15/20 09:17 MW [id number] 03/15/20 09:23 MW 03/01/20 03/08/20 03/15/20 10:01 10:38 09:17 Wound Center Nurse 2 #2- Left lateral le -Time 10:05 10:38 09:18 -Correct Patient Yes Yes Yes -Correct Side, Site, Position Yes Yes Yes -Correct Procedure Yes Yes Yes -Procedure Performed Yes Yes Yes -Type of Procedure Debridement Debridement Debridement -Clinical Debridement Subcutaneous Subcutaneous Subcutaneous -Tissue Removed Subcutaneous Subcutaneous Subcutaneous -Post Debridement (cm) - Length 14.3 12.2 15.0 -Post Debridement (cm) - Width 10.5 11.0 11.0 -Post Debridement (cm) - Depth 0.1 0.1 0.1 -Total Square (Post) (cm) 150.15 134.20 165.00 -Area of Debridement (cm) - Length 14.3 12.2 15.0 -Area of Debridement (cm) - Width 10.5 11.0 11.0 -Total Square (Area) (cm) 150.15 134.20 165.00 -Tunneling No No No -Undermining/Tunneling No No No -Circular Undermining No No No -Wound/Ulcer Outcome Not Healed Not Healed Not Healed -Ulcer Cleansing Rinsed/ Rinsed/ Rinsed/ Irrigated with Irrigated with Irrigated with Saline Saline Saline -Foul Odor after Cleansing No No No -Bioengineered Tissue No No No -Bleeding Controlled with Pressure Pressure Pressure -Offloading No No No -Treatment Response Procedure Procedure Procedure Tolerated Well Tolerated Well Tolerated Well -Debridement - Subq, 1st 20sq cm Yes Yes Yes -Debridement, SubQ, ea addt'l 20sq cm 7 6 8 or part thereof Pain Scale: 0-10 Numeric Is Patient Pain Free? Yes Yes Yes WC - Nurse 3 - General Ulcer D/C NN Start: 03/01/20 09:27 Freq: Status: Active Protocol: Activity Type Activity Date Activity User E-Sign Co-Sign Detail Recorded Client Recorded Date Recorded By Document 03/01/20 10:30 [place] [id number] 03/01/20 10:32 [place] Document 03/08/20 11:03 [place] [id number] 03/08/20 11:05 [place] Document 03/15/20 09:39 [facility] [id number] 03/15/20 09:40 [facility] 03/01/20 03/08/20 03/15/20 10:30 11:03 09:39 Wound Care Nurse 3 #2- Left lateral le -Ulcer Cleansing Rinsed/ Irrigated with Saline -Foul Odor after Cleansing No -Primary Dressing Applied Fibracol Plus Aquacel Extra Aquacel AG 4x4 4x4 -Other Dressing XEROFORM xeroform -Primary Dressing Covered/Secured with Dry Gauze, Dry Gauze, Other Secured with Secured with Tape Tape -Other Covering abd -Aquacel Extra 2 -Aquacel AG 4x4 1 -Fibracol Plus 4x4 1 Bilateral -Multi-Layered Wrap Application Multi-Layer Multi-Layer Comp - Bilat ($ Comp - Bilat ($ ) ) -Other xeroform applied to reddened areas Right -Multi-Layered Wrap Application Multi-Layer Comp - Right ($ ) Left -Multi-Layered Wrap Application Multi-Layer Comp - Left ($) Treatment Response Procedure Tolerated Well Vital Signs Pulse Rate (60-100 beats/min) 75 75 Pulse Location Monitor Monitor Blood Pressure (90/60-120/80 mm Hg) 122/58 H 122/60 H Blood Pressure Mean (mm Hg) 79 80 Source Monitor Monitor Position Semi-Fowlers Sitting Blood Pressure Location Left Arm Right Arm Pain Scale: 0-10 Numeric Is Patient Pain Free? Yes WC - Visit Discharge Discharge Condition Stable Stable Stable Ambulatory Status Ambulatory Ambulatory Ambulatory Transportation Private Auto Private Auto Private Auto Medication Reconcilliation completed & No No provided to patient/care provider Clinical Summary of Care Provided Yes Yes Facility Type Home Health Wound debrided: Left Lower Extremity ( lateral ) Type of Debridement: Excisional debridement Anesthesia Used: 4% Lidocaine Solution Depth: Down to and including healthy tissue, in the subcutaneous layer Percentage of wound debrided: 100 Instrument Used: 5mm curette Tissue Removed: Slough and devitalized tissue Severity: Fat Layer Exposed Amount of bleeding with debridement: Mild Bleeding Controlled with: Pressure Patient tolerated procedure well Assessment/Plan Active Problems Stasis dermatitis of both legs (Chronic) Obesity (BMI 30-39.9) (Chronic) Ulcer of left lower extremity with fat layer exposed (Chronic) Bilateral lower extremity edema (Chronic) Assessment: Nonhealing bilateral lower extremity ulcers, left greater than right. Significant left eschar to left leg ( lateral ). Poorly controlled diabetes mellitus. Chronic bilateral lower extremity edema. Plan: Debridement done as documented above, procedure was well-tolerated. Edema and maceration improved however wound with no significant change. Continue Aquacel extra. Continue 3M wrap. Due to stagnation/halt in progress, will apply for skin substitute. Optimal diabetes management strongly recommended. Strongly advised to elevate lower extremity when seated and in bed. Increase protein intake, vitamin C and zinc. His questions were answered and he was advised to call with any further questions or concerns. Follow-up in 2 weeks. This note was generated with Dragon dictation software. It may contain incorrect words, spelling, and punctuation that were not noted in checking the note before signing. [id number]: [id number] June subq tissue 20 sq cm/< Add On Codes: [id number] June subq tissue add-on - x 7. Additional square centimeter debrided, please refer to clinical note.
== END 2020-03-26 23:59 ==
LOC: WC 08:45
PROVIDERS: PCP Family Medicine; Referring Provider Family Medicine; Visit Provider Internal Medicine
DX: L97.922 Non-pressure chronic ulcer of unspecified part of left lower leg with fat layer exposed (principal); R60.0 Localized edema; I87.2 Venous insufficiency (chronic) (peripheral); E66.9 Obesity, unspecified; L97.912 Non-pressure chronic ulcer of unspecified part of right lower leg with fat layer exposed; E11.65 Type 2 diabetes mellitus with hyperglycemia; L03.115 Cellulitis of right lower limb; L03.116 Cellulitis of left lower limb
CPT/HCPCS: 11042; 11045; 29581

== ENCOUNTER 2020-04-26 10:00 | Outpatient (RCR) | payer MEDICARE, SELFPAY ==
[2020-03-27 00:11] VITALS: BP 119/71; PULSE 82; RESP 18; TEMP 36
[2020-03-29 08:51] VITALS: BP 139/66; PULSE 81; RESP 20; TEMP 35.7; O2SAT 91; BMI 36.1
--- NOTE | 2020-03-29 10:33 | PN.PCM_ITS ---
(1) Ulcer of left lower extremity with fat layer exposed Status: Chronic Code(s): L97.922 - Non-pressure chronic ulcer of unspecified part of left lower leg with fat layer exposed (2) Bilateral lower extremity edema Status: Chronic Code(s): R60.0 - Localized edema (3) Obesity (BMI 30-39.9) Status: Chronic Code(s): E66.9 - Obesity, unspecified (4) Type 2 diabetes mellitus Status: Chronic Code(s): E11.9 - Type 2 diabetes mellitus without complications Type of Wound Date of Service: 03/29/20 Chief Complaint: Nonhealing bilateral leg ulcers History of Wound: Mr. Garcia is a 64-year-old who was referred to the wound c enter due to nonhealing bilateral leg ulcers. Had presented to the emergency room at [facility] on the 05 of January due to significant bilateral lower extremity pain and redness. Managed for bilateral leg cellulitis. Discharged on the . Ulcers have been managed at home by home health. Was on Omnicef at discharge. Still reports significant predominantly left lower extremity pain. Edema is persistent. History of diabetes mellitus type 2 which is not well controlled, fasting blood glucose this morning said to be 178. He denies chills, fever, nausea or vomiting. Progress of Wound: Stable, no new concerns at this time. Approved for [facility] however patient would like to look into his copayment - Physical Exam Vital Signs Temp Pulse Resp BP Pulse Ox 96.2 F L 81 20 H 139/66 H 91 03/29/20 08:51 03/29/20 08:51 03/29/20 08:51 03/29/20 08:51 03/29/20 08:51 General: Alert, Oriented x3, Cooperative, No apparent distress HEENT: Atraumatic, Normocephalic Oral: Moist Mucosa Neck: Supple Lungs: Normal air movement Abdomen: Non Tender, Obese Extremities: No cyanosis, Edema Skin: Ulcer/ Wound Wound Measurements and Assessment WC - Nurse 1 - General Ulcer Measurement Start: 03/29/20 08:51 Freq: Status: Active Protocol: Activity Type Activity Date Activity User E-Sign Co-Sign Detail Recorded Client Recorded Date Recorded By Document 03/29/20 08:51 [facility] [id number] 03/29/20 09:00 BMF 03/29/20 08:51 Wound Center Nurse 1 [Ulcer Assessment] #2- Left lateral le -Combined with other wound No -Current Size (cm) - Length 10 -Current Size (cm) - Width 8.5 -Current Size (cm) - Depth 0.1 -Total Square Cm 85.0 -Photo Taken No -Epithelialization None Present -Tunneling No -Undermining/Tunneling No -Circular Undermining No -Exudate Amt Large -Exudate Type Serosanguineous -Wound Margin Flat & Intact -Granulation Amt Medium (34-66%) -Granulation Quality Pale,[place] -Slough/Fibrin Yes -Necrosis Amt Medium (34-66%) -Necrotic Tissue Type Adherent Slough -Texture (Reina-wound Skin Appearance) Assessed, Excoriation, Scarring -Moisture (Reina-wound Skin Appearance No Abnormality, ) Maceration,Dry/ Scaly -Color (Reina-wound Skin Appearance) Assessed, Erythema, Hemosiderin Staining,Palor -Temperature (Reina-wound Skin No Abnormality Appearance) (Pt Warm) -Tenderness on Palpation (Reina-wound Yes Skin Appearance) -Ulcer Cleansing soapy water -Foul Odor after Cleansing No -Anesthetic Used 4% Lidocaine Solution [Edema Assessment] -Lower Limb Edema Present Yes -Right Calf (cm) 45 -Right Ankle (cm) 33.2 -Left Calf (cm) 44 -Left Ankle (cm) 29.2 WC - Nurse 2 - General Ulcer CM Notes Start: 03/29/20 08:51 Freq: Status: Active Protocol: Activity Type Activity Date Activity User E-Sign Co-Sign Detail Recorded Client Recorded Date Recorded By Document 03/29/20 09:16 MW [id number] 03/29/20 09:20 MW 03/29/20 09:16 Wound Center Nurse 2 [Procedure/Treatment] #2- Left lateral le -Time 09:18 -Correct Patient Yes -Correct Side, Site, Position Yes -Correct Procedure Yes -Procedure Performed Yes -Type of Procedure Debridement -Clinical Debridement Subcutaneous -Tissue Removed Subcutaneous -Post Debridement (cm) - Length 11.0 -Post Debridement (cm) - Width 11.0 -Post Debridement (cm) - Depth 0.1 -Total Square (Post) (cm) 121.00 -Area of Debridement (cm) - Length 11.0 -Area of Debridement (cm) - Width 11.0 -Total Square (Area) (cm) 121.00 -Tunneling No -Undermining/Tunneling No -Circular Undermining No -Wound/Ulcer Outcome Not Healed -Ulcer Cleansing Rinsed/ Irrigated with Saline -Foul Odor after Cleansing No -Bioengineered Tissue No -Bleeding Controlled with Pressure -Offloading No -Treatment Response Procedure Tolerated Well -Debridement - Subq, 1st 20sq cm Yes -Debridement, SubQ, ea addt'l 20sq cm 6 or part thereof [See Physician Procedure note for Specifics] Pain Scale: 0-10 Numeric [Pain] -Is Patient Pain Free? Yes - Nurse 3 - General Ulcer D/C NN Start: 03/29/20 08:51 Freq: Status: Active Protocol: Activity Type Activity Date Activity User E-Sign Co-Sign Detail Recorded Client Recorded Date Recorded By Document 03/29/20 09:35 [facility] [id number] 03/29/20 09:37 [facility] 03/29/20 09:35 Wound Care Nurse 3 [Wound Dressing] #2- Left lateral le -Ulcer Cleansing Rinsed/ Irrigated with Saline -Foul Odor after Cleansing No -Primary Dressing Applied Aquacel Extra, Other -Other Dressing unna boot -Aquacel Extra 1 [Compression Applied] BILATERAL -Multi-Layered Wrap Application Unna Boot - Bilateral ($) -Unna Boots (Bilat) ($) 1 [Post Procedure Tolerated] -Treatment Response Procedure Tolerated Well Pain Scale: 0-10 Numeric [Pain] -Is Patient Pain Free? Yes - Visit Discharge [Visit Discharge Information] -Discharge Condition Stable -Ambulatory Status Ambulatory -Transportation Private Auto [Facility Notification] -Facility Type Home Health Musculoskeletal: No Muscle Wasting Neurological: Cranial nerves II-XII grossly intact Psych/Mental Status: Normal Affect Debridement Note Post-Debridement Measurements/Treatment - Nurse 2 - General Ulcer CM Notes Start: 03/29/20 08:51 Freq: Status: Active Protocol: Activity Type Activity Date Activity User E-Sign Co-Sign Detail Recorded Client Recorded Date Recorded By Document 03/29/20 09:16 MW [id number] 03/29/20 09:20 MW 03/29/20 09:16 Wound Center Nurse 2 #2- Left lateral le -Time 09:18 -Correct Patient Yes -Correct Side, Site, Position Yes -Correct Procedure Yes -Procedure Performed Yes -Type of Procedure Debridement -Clinical Debridement Subcutaneous -Tissue Removed Subcutaneous -Post Debridement (cm) - Length 11.0 -Post Debridement (cm) - Width 11.0 -Post Debridement (cm) - Depth 0.1 -Total Square (Post) (cm) 121.00 -Area of Debridement (cm) - Length 11.0 -Area of Debridement (cm) - Width 11.0 -Total Square (Area) (cm) 121.00 -Tunneling No -Undermining/Tunneling No -Circular Undermining No -Wound/Ulcer Outcome Not Healed -Ulcer Cleansing Rinsed/ Irrigated with Saline -Foul Odor after Cleansing No -Bioengineered Tissue No -Bleeding Controlled with Pressure -Offloading No -Treatment Response Procedure Tolerated Well -Debridement - Subq, 1st 20sq cm Yes -Debridement, SubQ, ea addt'l 20sq cm 6 or part thereof Pain Scale: 0-10 Numeric Is Patient Pain Free? Yes - Nurse 3 - General Ulcer D/C NN Start: 03/29/20 08:51 Freq: Status: Active Protocol: Activity Type Activity Date Activity User E-Sign Co-Sign Detail Recorded Client Recorded Date Recorded By Document 03/29/20 09:35 [facility] [id number] 03/29/20 09:37 [facility] 03/29/20 09:35 Wound Care Nurse 3 #2- Left lateral le -Ulcer Cleansing Rinsed/ Irrigated with Saline -Foul Odor after Cleansing No -Primary Dressing Applied Aquacel Extra, Other -Other Dressing unna boot -Aquacel Extra 1 BILATERAL -Multi-Layered Wrap Application Unna Boot - Bilateral ($) -Unna Boots (Bilat) ($) 1 Treatment Response Procedure Tolerated Well Pain Scale: 0-10 Numeric Is Patient Pain Free? Yes - Visit Discharge Discharge Condition Stable Ambulatory Status Ambulatory Transportation Private [facility] Facility Type Home Health Wound debrided: Left lower extremity cluster Type of Debridement: Excisional debridement Anesthesia Used: 4% Lidocaine Solution Depth: Down to and including healthy tissue, in the subcutaneous layer Percentage of wound debrided: 100 Instrument Used: 5mm curette Tissue Removed: Slough and devitalized tissue Severity: Fat Layer Exposed Amount of bleeding with debridement: Mild Bleeding Controlled with: Pressure Patient tolerated procedure well Assessment/Plan Active Problems Obesity (BMI 30-39.9) (Chronic) Ulcer of left lower extremity with fat layer exposed (Chronic) Type 2 diabetes mellitus (Chronic) Bilateral lower extremity edema (Chronic) Assessment: Nonhealing bilateral lower extremity ulcers, left greater than rig ht. Significant left eschar to left leg ( lateral ). Poorly controlled diabetes mellitus. Chronic bilateral lower extremity edema. Plan: Debridement done as documented above, procedure was well-tolerated. Continue Aquacel extra. Switch to Unaboot for edema management. Optimal diabetes management strongly recommended. Strongly advised to elevate lower extremity when seated and in bed. Increase protein intake, vitamin C and zinc. His questions were answered and he was advised to call with any further questions or concerns. Follow-up in 2 weeks. This note was generated with [employer] dictation software. It may contain incorrect words, spelling, and punctuation that were not noted in checking the note before signing. [id number]: [id number] June subq tissue 20 sq cm/< Add On Codes: [id number] June subq tissue add-on - x5. Patient will square centimeter debrided, please refer to clinical note.
[2020-04-12 08:49] VITALS: BP 121/64; PULSE 79; RESP 20; TEMP 37; BMI 36.1
--- NOTE | 2020-04-12 10:39 | PCM.WC.PN ---
(1) Ulcer of left lower extremity with fat layer exposed Status: Chronic Code(s): L97.922 - Non-pressure chronic ulcer of unspecified part of left lower leg with fat layer exposed (2) Bilateral lower extremity edema Status: Chronic Code(s): R60.0 - Localized edema (3) Obesity (BMI 30-39.9) Status: Chronic Code(s): E66.9 - Obesity, unspecified (4) Type 2 diabetes mellitus Status: Chronic Code(s): E11.9 - Type 2 diabetes mellitus without complications Type of Wound Date of Service: 04/12/20 Chief Complaint: Nonhealing bilateral leg ulcers History of Wound: Mr. Garcia is a 64-year-old who was referred to the wound center due to nonhealing bilateral leg ulcers. Had presented to the emergency room at [facility] on the 05 of January due to significant bilateral lower extremity pain and redness. Managed for bilateral leg cellulitis. Discharged on the . Ulcers have been managed at home by home health. Was on Omnicef at discharge. Still reports significant predominantly left lower extremity pain. Edema is persistent. History of diabetes mellitus type 2 which is not well controlled, fasting blood glucose this morning said to be 178. He denies chills, fever, nausea or vomiting. Progress of Wound: Some worsening noted. Approved for [facility] however patient would like to look into his copayment. He is yet to decide. Also has a new left 4th toe ulcer thought to be due to pressure from his shoe. - Physical Exam Vital Signs Temp Pulse Resp BP Pulse Ox 98.6 F 79 20 H 121/64 H 91 04/12/20 08:49 04/12/20 08:49 04/12/20 08:49 04/12/20 08:49 03/29/20 08:51 General: Alert, Oriented x3, Cooperative, No apparent distress HEENT: Atraumatic, Normocephalic Oral: Moist Mucosa Neck: Supple Lungs: Normal air movement Abdomen: Non Tender, Obese Extremities: No cyanosis, Edema Skin: Ulcer/ Wound Wound Measurements and Assessment WC - Nurse 1 - General Ulcer Measurement Start: 03/29/20 08:51 Freq: Status: Active Protocol: Activity Type Activity Date Activity User E-Sign Co-Sign Detail Recorded Client Recorded Date Recorded By Document 04/12/20 08:49 DL [id number] 04/12/20 08:59 DL 04/12/20 08:49 Wound Center Nurse 1 [Ulcer Assessment] #3 Left 4th Toe -Current Size (cm) - Length 0.2 -Current Size (cm) - Width 0.2 -Current Size (cm) - Depth 0.2 -Total Square Cm 0.04 -Exudate Amt None Present -Wound Margin Distinct, Outline Attached -Granulation Amt Small (1-33%) -Granulation Quality [place],Red -Necrosis Amt Small (1-33%) -Necrotic Tissue Type Adherent Slough -Texture (Reina-wound Skin Appearance) No Abnormality, Assessed -Moisture (Reina-wound Skin Appearance Maceration ) -Color (Reina-wound Skin Appearance) No Abnormality, Assessed -Temperature (Reina-wound Skin No Abnormality Appearance) (Pt Warm) -Tenderness on Palpation (Reina-wound No Skin Appearance) -Ulcer Cleansing soap and water -Foul Odor after Cleansing No -Anesthetic Used 4% Lidocaine Solution #2- Left lateral le -Current Size (cm) - Length 8 -Current Size (cm) - Width 15 -Current Size (cm) - Depth 0.2 -Total Square Cm 120 -Exudate Amt Medium -Exudate Type Serosanguineous -Wound Margin Distinct, Outline Attached -Granulation Amt Large (67-100%) -Granulation Quality Red -Necrosis Amt Medium (34-66%) -Necrotic Tissue Type Adherent Slough -Texture (Reina-wound Skin Appearance) Assessed, Scarring -Moisture (Reina-wound Skin Appearance Assessed,Dry/ ) Scaly -Color (Reina-wound Skin Appearance) No Abnormality, Assessed -Temperature (Reina-wound Skin No Abnormality Appearance) (Pt Warm) -Tenderness on Palpation (Reina-wound No Skin Appearance) -Ulcer Cleansing soap and water -Foul Odor after Cleansing No -Anesthetic Used 4% Lidocaine Solution [Edema Assessment] -Right Calf (cm) 47.5 -Right Ankle (cm) 33 -Left Calf (cm) 46 -Left Ankle (cm) 29.8 WC - Nurse 2 - General Ulcer CM Notes Start: 03/29/20 08:51 Freq: Status: Active Protocol: Activity Type Activity Date Activity User E-Sign Co-Sign Detail Recorded Client Recorded Date Recorded By Document 04/12/20 09:12 [id number] 04/12/20 09:20 MW 04/12/20 09:12 Wound Center Nurse 2 [Procedure/Treatment] #3 Left 4th Toe -Time 09:13 -Correct Patient Yes -Correct Side, Site, Position Yes -Correct Procedure Yes -Procedure Performed Yes -Type of Procedure Debridement -Clinical Debridement Subcutaneous -Tissue Removed Subcutaneous -Post Debridement (cm) - Length 0.2 -Post Debridement (cm) - Width 0.2 -Post Debridement (cm) - Depth 0.2 -Total Square (Post) (cm) 0.04 -Area of Debridement (cm) - Length 0.2 -Area of Debridement (cm) - Width 0.2 -Total Square (Area) (cm) 0.04 -Tunneling No -Undermining/Tunneling No -Circular Undermining No -Wound/Ulcer Outcome Not Healed -Ulcer Cleansing Rinsed/ Irrigated with Saline -Foul Odor after Cleansing No -Bioengineered Tissue No -Bleeding Controlled with Pressure -Offloading No -Treatment Response Procedure Tolerated Well -Debridement - Subq, 1st 20sq cm Yes #2- Left lateral le -Time 09:13 -Correct Patient Yes -Correct Side, Site, Position Yes -Correct Procedure Yes -Procedure Performed Yes -Type of Procedure Debridement -Clinical Debridement Subcutaneous -Tissue Removed Subcutaneous -Post Debridement (cm) - Length 11.0 -Post Debridement (cm) - Width 15.0 -Post Debridement (cm) - Depth 0.1 -Total Square (Post) (cm) 165.00 -Area of Debridement (cm) - Length 11.0 -Area of Debridement (cm) - Width 15.0 -Total Square (Area) (cm) 165.00 -Tunneling No -Undermining/Tunneling No -Circular Undermining No -Wound/Ulcer Outcome Not Healed -Ulcer Cleansing Rinsed/ Irrigated with Saline -Foul Odor after Cleansing No -Bioengineered Tissue No -Bleeding Controlled with Pressure -Offloading No -Treatment Response Procedure Tolerated Well -Debridement - Subq, 1st 20sq cm Yes -Debridement, SubQ, ea addt'l 20sq cm 8 or part thereof [See Physician Procedure note for Specifics] Pain Scale: 0-10 Numeric [Pain] -Is Patient Pain Free? Yes WC - Nurse 3 - General Ulcer D/C NN Start: 03/29/20 08:51 Freq: Status: Active Protocol: Activity Type Activity Date Activity User E-Sign Co-Sign Detail Recorded Client Recorded Date Recorded By Document 04/12/20 09:34 DL [id number] 04/12/20 09:38 DL 04/12/20 09:34 Wound Care Nurse 3 [Wound Dressing] #3 Left 4th Toe -Ulcer Cleansing Wound Cleanser -Foul Odor after Cleansing No -Primary Dressing Applied Aquacel Extra -Primary Dressing Covered/Secured Dry Gauze with -Aquacel Extra 2 #2- Left lateral le -Ulcer Cleansing Wound Cleanser -Foul Odor after Cleansing No -Other Dressing aquacel Ex -Primary Dressing Covered/Secured Dry Gauze with [Compression Applied] BILATERAL -Multi-Layered Wrap Application Multi-Layer Comp - Bilat ($ ) [Post Procedure Tolerated] -Treatment Response Procedure Tolerated Well Pain Scale: 0-10 Numeric [Pain] -Is Patient Pain Free? Yes WC - Visit Discharge [Visit Discharge Information] -Discharge Condition Stable -Ambulatory Status Ambulatory -Transportation Private Auto [Facility Notification] -Facility Type Home Health -Orders Sent Yes Musculoskeletal: No Muscle Wasting Neurological: Cranial nerves II-XII grossly intact Psych/Mental Status: Normal Affect Debridement Note Post-Debridement Measurements/Treatment WC - Nurse 2 - General Ulcer CM Notes Start: 03/29/20 08:51 Freq: Status: Active Protocol: Activity Type Activity Date Activity User E-Sign Co-Sign Detail Recorded Client Recorded Date Recorded By Document 03/29/20 09:16 MW [id number] 03/29/20 09:20 MW Document 04/12/20 09:12 MW [id number] 04/12/20 09:20 MW 03/29/20 04/12/20 09:16 09:12 Wound Center Nurse 2 #3 Left 4th Toe -Time 09:13 -Correct Patient Yes -Correct Side, Site, Position Yes -Correct Procedure Yes -Procedure Performed Yes -Type of Procedure Debridement -Clinical Debridement Subcutaneous -Tissue Removed Subcutaneous -Post Debridement (cm) - Length 0.2 -Post Debridement (cm) - Width 0.2 -Post Debridement (cm) - Depth 0.2 -Total Square (Post) (cm) 0.04 -Area of Debridement (cm) - Length 0.2 -Area of Debridement (cm) - Width 0.2 -Total Square (Area) (cm) 0.04 -Tunneling No -Undermining/Tunneling No -Circular Undermining No -Wound/Ulcer Outcome Not Healed -Ulcer Cleansing Rinsed/ Irrigated with Saline -Foul Odor after Cleansing No -Bioengineered Tissue No -Bleeding Controlled with Pressure -Offloading No -Treatment Response Procedure Tolerated Well -Debridement - Subq, 1st 20sq cm Yes #2- Left lateral le -Time 09:18 09:13 -Correct Patient Yes Yes -Correct Side, Site, Position Yes Yes -Correct Procedure Yes Yes -Procedure Performed Yes Yes -Type of Procedure Debridement Debridement -Clinical Debridement Subcutaneous Subcutaneous -Tissue Removed Subcutaneous Subcutaneous -Post Debridement (cm) - Length 11.0 11.0 -Post Debridement (cm) - Width 11.0 15.0 -Post Debridement (cm) - Depth 0.1 0.1 -Total Square (Post) (cm) 121.00 165.00 -Area of Debridement (cm) - Length 11.0 11.0 -Area of Debridement (cm) - Width 11.0 15.0 -Total Square (Area) (cm) 121.00 165.00 -Tunneling No No -Undermining/Tunneling No No -Circular Undermining No No -Wound/Ulcer Outcome Not Healed Not Healed -Ulcer Cleansing Rinsed/ Rinsed/ Irrigated with Irrigated with Saline Saline -Foul Odor after Cleansing No No -Bioengineered Tissue No No -Bleeding Controlled with Pressure Pressure -Offloading No No -Treatment Response Procedure Procedure Tolerated Well Tolerated Well -Debridement - Subq, 1st 20sq cm Yes Yes -Debridement, SubQ, ea addt'l 20sq cm 6 8 or part thereof Pain Scale: 0-10 Numeric Is Patient Pain Free? Yes Yes - Nurse 3 - General Ulcer D/C NN Start: 03/29/20 08:51 Freq: Status: Active Protocol: Activity Type Activity Date Activity User E-Sign Co-Sign Detail Recorded Client Recorded Date Recorded By Document 03/29/20 09:35 BM [id number] 03/29/20 09:37 BMF Document 04/12/20 09:34 DL [id number] 04/12/20 09:38 DL 03/29/20 04/12/20 09:35 09:34 Wound Care Nurse 3 #3 Left 4th Toe -Ulcer Cleansing Wound Cleanser -Foul Odor after Cleansing No -Primary Dressing Applied Aquacel Extra -Primary Dressing Covered/Secured with Dry Gauze -Aquacel Extra 2 #2- Left lateral le -Ulcer Cleansing Rinsed/ Wound Cleanser Irrigated with Saline -Foul Odor after Cleansing No No -Primary Dressing Applied Aquacel Extra, Other -Other Dressing unna boot aquacel Ex -Primary Dressing Covered/Secured with Dry Gauze -Aquacel Extra 1 BILATERAL -Multi-Layered Wrap Application Unna Boot - Multi-Layer Bilateral ($) Comp - Bilat ($ ) -Unna Boots (Bilat) ($) 1 Treatment Response Procedure Procedure Tolerated Well Tolerated Well Pain Scale: 0-10 Numeric Is Patient Pain Free? Yes Yes WC - Visit Discharge Discharge Condition Stable Stable Ambulatory Status Ambulatory Ambulatory Transportation Private Auto Private Auto Facility Type Home Health Home Health Orders Sent Yes Wound debrided: Left Lowere xtremity cluster Type of Debridement: Excisional debridement Anesthesia Used: 4% Lidocaine Solution Depth: Down to and including healthy tissue, in the subcutaneous layer Percentage of wound debrided: 100 Instrument Used: 5mm curette Tissue Removed: Slough and devitalized tissue Severity: Fat Layer Exposed Amount of bleeding with debridement: Mild Bleeding Controlled with: Pressure Patient tolerated procedure well - Additional Wound Wound debrided: Left 4th Toe Wound Grade/Stage: Grade II Type of Debridement: Excisional debridement Anesthesia Used: 4% Lidocaine Solution Depth: Down to and including healthy tissue, in the subcutaneous layer Percentage of wound debrided: 100 Instrument Used: 3mm curette Tissue Removed: Slough and devitalized tissue Severity: Fat Layer Exposed Amount of bleeding with debridement: Mild Bleeding Controlled with: Pressure Patient tolerated procedure: Patient tolerated procedure well Assessment/Plan Active Problems Obesity (BMI 30-39.9) (Chronic) Ulcer of left lower extremity with fat layer exposed (Chronic) Type 2 diabetes mellitus (Chronic) Bilateral lower extremity edema (Chronic) Assessment: Nonhealing bilateral lower extremity ulcers, left greater than right. Significant left eschar to left leg ( lateral ). Poorly controlled diabetes mellitus. Chronic bilateral lower extremity edema. Plan: Debridement done as documented above, procedure was well-tolerated. Aquacel extra to left fourth toe and left lower extremity cluster. Will go back to 3M wraps for edema management. Worsening right lower extremity edema and maceration noted. Change on Thursday by home health. Optimal diabetes management strongly recommended. Strongly advised to elevate lower extremity when seated and in bed. Increase protein intake, vitamin C and zinc. Yet to make a decision about the skin substitute. His questions were answered and he was advised to call with any further questions or concerns. Follow-up in 1 week. This note was generated with [employer] software. It may contain incorrect words, spelling, and punctuation that were not noted in checking the note before signing. [id number]: [id number] June subq tissue 20 sq cm/< Add On Codes: 42626 June subq tissue add-on - x7. Additional square centimeter debrided. Please refer to clinical note.
[2020-04-26 09:50] VITALS: BP 118/56; PULSE 81; RESP 22; TEMP 36.6; BMI 36.1
--- NOTE | 2020-04-26 10:26 | PN.PCM_ITS ---
(1) Ulcer of left lower extremity with fat layer exposed Status: Chronic Code(s): L97.922 - Non-pressure chronic ulcer of unspecified part of left lower leg with fat layer exposed (2) Bilateral lower extremity edema Status: Chronic Code(s): R60.0 - Localized edema (3) Obesity (BMI 30-39.9) Status: Chronic Code(s): E66.9 - Obesity, unspecified (4) Type 2 diabetes mellitus Status: Chronic Code(s): E11.9 - Type 2 diabetes mellitus without complications Type of Wound Date of Service: 04/26/20 Chief Complaint: Nonhealing bilateral leg ulcers History of Wound: Mr. Garcia is a 64-year-old who was referred to the wound c enter due to nonhealing bilateral leg ulcers. Had presented to the emergency room at [facility] on the 05 of January due to significant bilateral lower extremity pain and redness. Managed for bilateral leg cellulitis. Discharged on the . Ulcers have been managed at home by home health. Was on Omnicef at discharge. Still reports significant predominantly left lower extremity pain. Edema is persistent. History of diabetes mellitus type 2 which is not well controlled, fasting blood glucose this morning said to be 178. He denies chills, fever, nausea or vomiting. Progress of Wound: No new concerns at this time. Approved for skin substitute however patient declined. - Physical Exam Vital Signs Temp Pulse Resp BP Pulse Ox 97.9 F 81 22 H 118/56 L 91 04/26/20 09:50 04/26/20 09:50 04/26/20 09:50 04/26/20 09:50 03/29/20 08:51 General: Alert, Oriented x3, Cooperative, No apparent distress HEENT: Atraumatic, Normocephalic Oral: Moist Mucosa Neck: Supple Lungs: Normal air movement Abdomen: Non Tender, Obese Extremities: No cyanosis, Edema Skin: Ulcer/ Wound Wound Measurements and Assessment WC - Nurse 1 - General Ulcer Measurement Start: 03/29/20 08:51 Freq: Status: Active Protocol: Activity Type Activity Date Activity User E-Sign Co-Sign Detail Recorded Client Recorded Date Recorded By Document 04/26/20 09:50 DL [id number] 04/26/20 10:07 DL 04/26/20 09:50 Wound Center Nurse 1 [Ulcer Assessment] #3 Left 4th Toe -Current Size (cm) - Length 0.1 -Current Size (cm) - Width 0.1 -Current Size (cm) - Depth 0.1 -Total Square Cm 0.01 -Photo Taken No -Exudate Amt Small -Exudate Type Serosanguineous -Wound Margin Flat & Intact -Granulation Amt Large (67-100%) -Granulation Quality [place] -Necrosis Amt Small (1-33%) -Necrotic Tissue Type Adherent Slough -Structure Exposed N/A -Texture (Reina-wound Skin Appearance) Scarring -Moisture (Reina-wound Skin Appearance Weeping ) -Color (Reina-wound Skin Appearance) Hemosiderin Staining,Rubor -Temperature (Reina-wound Skin No Abnormality Appearance) (Pt Warm) -Tenderness on Palpation (Reina-wound No Skin Appearance) -Ulcer Cleansing Wound Cleanser -Foul Odor after Cleansing No -Anesthetic Used 4% Lidocaine Solution #2- Left lateral le -Current Size (cm) - Length 9 -Current Size (cm) - Width 6 -Current Size (cm) - Depth 0.1 -Total Square Cm 54 -Photo Taken No -Exudate Amt Large -Exudate Type Yellow/Green -Wound Margin Indistinct, Non -Visible -Granulation Amt Medium (34-66%) -Granulation Quality Red -Necrosis Amt Medium (34-66%) -Necrotic Tissue Type Adherent Slough -Structure Exposed N/A -Texture (Reina-wound Skin Appearance) Localized Edema -Moisture (Reina-wound Skin Appearance Weeping ) -Color (Reina-wound Skin Appearance) Erythema, Hemosiderin Staining,Rubor -Temperature (Reina-wound Skin No Abnormality Appearance) (Pt Warm) -Tenderness on Palpation (Reina-wound Yes Skin Appearance) -Foul Odor after Cleansing No -Anesthetic Used 4% Lidocaine Solution [Edema Assessment] -Right Calf (cm) 44.8 -Right Ankle (cm) 31.5 -Left Calf (cm) 43.8 -Left Ankle (cm) 29.5 WC - Nurse 2 - General Ulcer CM Notes Start: 03/29/20 08:51 Freq: Status: Active Protocol: Activity Type Activity Date Activity User E-Sign Co-Sign Detail Recorded Client Recorded Date Recorded By Document 04/26/20 10:13 MW [id number] 04/26/20 10:23 MW 04/26/20 10:13 Wound Center Nurse 2 [Procedure/Treatment] #3 Left 4th Toe -Time 10:15 -Correct Patient Yes -Correct Side, Site, Position Yes -Correct Procedure Yes -Procedure Performed Yes -Type of Procedure Debridement -Clinical Debridement Subcutaneous -Tissue Removed Subcutaneous -Post Debridement (cm) - Length 0.2 -Post Debridement (cm) - Width 0.1 -Post Debridement (cm) - Depth 0.1 -Total Square (Post) (cm) 0.02 -Area of Debridement (cm) - Length 0.2 -Area of Debridement (cm) - Width 0.1 -Total Square (Area) (cm) 0.02 -Tunneling No -Undermining/Tunneling Yes -Undermining/Tunneling Starts (O' 1 clock) -Undermining/Tunneling Ends (O'clock) 3 -Maximum Distance (cm) 0.2 -Circular Undermining No -Wound/Ulcer Outcome Not Healed -Ulcer Cleansing Rinsed/ Irrigated with Saline -Foul Odor after Cleansing No -Bioengineered Tissue No -Bleeding Controlled with Pressure -Offloading No -Treatment Response Procedure Not Tolerated Well -Debridement - Subq, 1st 20sq cm No #2- Left lateral le -Time 10:15 -Correct Patient Yes -Correct Side, Site, Position Yes -Correct Procedure Yes -Procedure Performed Yes -Type of Procedure Debridement -Clinical Debridement Subcutaneous -Tissue Removed Subcutaneous -Post Debridement (cm) - Length 12.0 -Post Debridement (cm) - Width 11.0 -Post Debridement (cm) - Depth 0.1 -Total Square (Post) (cm) 132.00 -Area of Debridement (cm) - Length 12.0 -Area of Debridement (cm) - Width 11.0 -Total Square (Area) (cm) 132.00 -Tunneling No -Undermining/Tunneling No -Circular Undermining No -Wound/Ulcer Outcome Not Healed -Ulcer Cleansing Rinsed/ Irrigated with Saline -Foul Odor after Cleansing No -Bioengineered Tissue No -Bleeding Controlled with Pressure -Offloading No -Treatment Response Procedure Tolerated Well -Debridement - Subq, 1st 20sq cm Yes -Debridement, SubQ, ea addt'l 20sq cm 6 or part thereof [See Physician Procedure note for Specifics] Pain Scale: 0-10 Numeric [Pain] -Is Patient Pain Free? Yes Musculoskeletal: No Muscle Wasting Neurological: Cranial nerves II-XII grossly intact Psych/Mental Status: Normal Affect Debridement Note Post-Debridement Measurements/Treatment WC - Nurse 2 - General Ulcer CM Notes Start: 03/29/20 08:51 Freq: Status: Active Protocol: Activity Type Activity Date Activity User E-Sign Co-Sign Detail Recorded Client Recorded Date Recorded By Document 03/29/20 09:16 MW [id number] 03/29/20 09:20 MW Document 04/12/20 09:12 MW [id number] 04/12/20 09:20 MW Document 04/26/20 10:13 MW [id number] 04/26/20 10:23 MW 03/29/20 04/12/20 04/26/20 09:16 09:12 10:13 Wound Center Nurse 2 #3 Left 4th Toe -Time 09:13 10:15 -Correct Patient Yes Yes -Correct Side, Site, Position Yes Yes -Correct Procedure Yes Yes -Procedure Performed Yes Yes -Type of Procedure Debridement Debridement -Clinical Debridement Subcutaneous Subcutaneous -Tissue Removed Subcutaneous Subcutaneous -Post Debridement (cm) - Length 0.2 0.2 -Post Debridement (cm) - Width 0.2 0.1 -Post Debridement (cm) - Depth 0.2 0.1 -Total Square (Post) (cm) 0.04 0.02 -Area of Debridement (cm) - Length 0.2 0.2 -Area of Debridement (cm) - Width 0.2 0.1 -Total Square (Area) (cm) 0.04 0.02 -Tunneling No No -Undermining/Tunneling No Yes -Undermining/Tunneling Starts (O'clock 1 ) -Undermining/Tunneling Ends (O'clock) 3 -Maximum Distance (cm) 0.2 -Circular Undermining No No -Wound/Ulcer Outcome Not Healed Not Healed -Ulcer Cleansing Rinsed/ Rinsed/ Irrigated with Irrigated with Saline Saline -Foul Odor after Cleansing No No -Bioengineered Tissue No No -Bleeding Controlled with Pressure Pressure -Offloading No No -Treatment Response Procedure Procedure Not Tolerated Well Tolerated Well -Debridement - Subq, 1st 20sq cm No No #2- Left lateral le -Time 09:18 09:13 10:15 -Correct Patient Yes Yes Yes -Correct Side, Site, Position Yes Yes Yes -Correct Procedure Yes Yes Yes -Procedure Performed Yes Yes Yes -Type of Procedure Debridement Debridement Debridement -Clinical Debridement Subcutaneous Subcutaneous Subcutaneous -Tissue Removed Subcutaneous Subcutaneous Subcutaneous -Post Debridement (cm) - Length 11.0 11.0 12.0 -Post Debridement (cm) - Width 11.0 15.0 11.0 -Post Debridement (cm) - Depth 0.1 0.1 0.1 -Total Square (Post) (cm) 121.00 165.00 132.00 -Area of Debridement (cm) - Length 11.0 11.0 12.0 -Area of Debridement (cm) - Width 11.0 15.0 11.0 -Total Square (Area) (cm) 121.00 165.00 132.00 -Tunneling No No No -Undermining/Tunneling No No No -Circular Undermining No No No -Wound/Ulcer Outcome Not Healed Not Healed Not Healed -Ulcer Cleansing Rinsed/ Rinsed/ Rinsed/ Irrigated with Irrigated with Irrigated with Saline Saline Saline -Foul Odor after Cleansing No No No -Bioengineered Tissue No No No -Bleeding Controlled with Pressure Pressure Pressure -Offloading No No No -Treatment Response Procedure Procedure Procedure Tolerated Well Tolerated Well Tolerated Well -Debridement - Subq, 1st 20sq cm Yes Yes Yes -Debridement, SubQ, ea addt'l 20sq cm 6 8 6 or part thereof Pain Scale: 0-10 Numeric Is Patient Pain Free? Yes Yes Yes - Nurse 3 - General Ulcer D/C NN Start: 03/29/20 08:51 Freq: Status: Active Protocol: Activity Type Activity Date Activity User E-Sign Co-Sign Detail Recorded Client Recorded Date Recorded By Document 03/29/20 09:35 [facility] [id number] 03/29/20 09:37 [facility] Document 04/12/20 09:34 [id number] 04/12/20 09:38 DL 03/29/20 04/12/20 09:35 09:34 Wound Care Nurse 3 #3 Left 4th Toe -Ulcer Cleansing Wound Cleanser -Foul Odor after Cleansing No -Primary Dressing Applied Aquacel Extra -Primary Dressing Covered/Secured with Dry Gauze -Aquacel Extra 2 #2- Left lateral le -Ulcer Cleansing Rinsed/ Wound Cleanser Irrigated with Saline -Foul Odor after Cleansing No No -Primary Dressing Applied Aquacel Extra, Other -Other Dressing unna boot aquacel Ex -Primary Dressing Covered/Secured with Dry Gauze -Aquacel Extra 1 BILATERAL -Multi-Layered Wrap Application Unna Boot - Multi-Layer Bilateral ($) Comp - Bilat ($ ) -Unna Boots (Bilat) ($) 1 Treatment Response Procedure Procedure Tolerated Well Tolerated Well Pain Scale: 0-10 Numeric Is Patient Pain Free? Yes Yes WC - Visit Discharge Discharge Condition Stable Stable Ambulatory Status Ambulatory Ambulatory Transportation Private Auto Private Auto Facility Type Home Health Home Health Orders Sent Yes Wound debrided: Left lower extremity cluster Type of Debridement: Excisional debridement Anesthesia Used: 4% Lidocaine Solution Depth: Down to and including healthy tissue, in the subcutaneous layer Percentage of wound debrided: 100 Instrument Used: 5mm curette Tissue Removed: Slough and devitalized tissue Severity: Fat Layer Exposed Amount of bleeding with debridement: Mild Bleeding Controlled with: Pressure Patient tolerated procedure well Assessment/Plan Active Problems Obesity (BMI 30-39.9) (Chronic) Ulcer of left lower extremity with fat layer exposed (Chronic) Type 2 diabetes mellitus (Chronic) Bilateral lower extremity edema (Chronic) Assessment: Nonhealing bilateral lower extremity ulcers, left greater than right. Significant left eschar to left leg ( lateral ). Poorly controlled diabetes mellitus. Chronic bilateral lower extremity edema. Plan: Debridement done as documented above, procedure was well-tolerated. Switch to Fibrocol with Xeroform over top. Continue 3M wraps for edema management. Change on Thursday, Thursday and then follow-up in the wound center on . Moisturize adequately prior to 3M application. Optimal diabetes management strongly recommended. Strongly advised to elevate lower extremity when seated and in bed. Increase protein intake, vitamin C and zinc. Yet to make a decision about the skin substitute. His questions were answered and he was advised to call with any further questions or concerns. Follow-up in 1 week. This note was generated with [employer] dictation software. It may contain incorrect words, spelling, and punctuation that were not noted in checking the note before signing. [id number]: [id number] June subq tissue 20 sq cm/< Add On Codes: [id number] June subq tissue add-on - Additional square centimeter debrided, please refer to clinical note.
--- NOTE | 2020-06-06 12:24 | WC ---
04/12/20 4th toe Initial
== END 2020-04-26 23:59 ==
LOC: WC 10:00
PROVIDERS: PCP Family Medicine; Referring Provider Family Medicine; Visit Provider Internal Medicine
DX: E11.621 Type 2 diabetes mellitus with foot ulcer (principal); E11.65 Type 2 diabetes mellitus with hyperglycemia; E66.9 Obesity, unspecified; L97.922 Non-pressure chronic ulcer of unspecified part of left lower leg with fat layer exposed; L03.115 Cellulitis of right lower limb; L03.116 Cellulitis of left lower limb
CPT/HCPCS: 11042; 11045; 29580; 29581

== ENCOUNTER 2020-05-08 16:59 | Inpatient (IN) | payer MEDICARE, SELFPAY ==
[2020-05-03 09:55] VITALS: BMI 36.1
[2020-05-08] VITALS (12 sets, daily range): BP systolic 144–169; BP diastolic 72–91; PULSE 81–89; RESP 17–25; TEMP 36.4–36.6; O2SAT 85–99; BMI 42.2; BMI 41.5
--- NOTE | 2020-05-08 17:16 | EKG12_ITS ---
Test Reason : AM EKG Blood Pressure : / mmHG Vent. Rate : 070 BPM Atrial Rate : 070 BPM P-R Int : 194 ms QRS Dur : 146 ms QT Int : 470 ms P-R-T Axes : 031 247 027 degrees QTc Int : 507 ms Normal sinus rhythm Indeterminate axis Right bundle branch block Anteroseptal infarct , age undetermined , cannot be excluded Abnormal ECG Confirmed by VINCENT MATTHEWS, DIAZ ([id number]), loan expeditor DANIELA HENSON ([id number]) on 05/10/2020 11:38:40 AM Referred By: CHEMA Confirmed By:DIAZ KAUR MD
--- NOTE | 2020-05-08 17:30 | ED.VIS.GEN ---
History of Present Illness Chief Complaint: Shortness of Breath Narrative: This patient is a 64-year-old male who presents with shortness of breath. He states he initially had shortness of breath couple weeks ago which then seemed to improve. He ran out of his diuretic 3 days ago. Yesterday he began to feel increasingly short of breath. He has orthopnea his shortness of breath is worse with lying flat, severe with laying flat. He complains of mild cough. No fever congestion sore throat. No chest pain. He states that his abdomen just feels full. He has no abdominal pain. He has had some increased swelling on his legs. He has a history of bilateral leg cellulitis. He sees wound care and gets dressing changes twice a week. He is not currently on any antibiotics. Past Medical History - Allergies and Home Meds Allergies/Adverse Reactions: Allergies tramadol Allergy (Verified 05/08/20 17:00) Rash Primary Care Physician: Shay Chin MD [Primary Care Provider] - Past Medical History: - - Diabetes, hypertension, CHF, chronic kidney disease Surgical History: cholecystectomy, - - Surgery for trauma to the left arm (fracture) with orthopedic plate inserted Smoking Status: Former smoker - Family History Maternal Family History: Reports: - - of pneumonia Paternal Family History: Reports: Heart Disease - CT at age 71 Sibling Family History: Reports: Heart Disease - CT at 55 Review of Systems All systems negative except as indicated General: Denies: Fever Eyes: Denies: Visual changes - bilaterally ENT: Denies: Bilateral ear pain Cardiovascular: Denies: Chest pain Respiratory: Reports: Dyspnea, Cough Gastrointestinal: Denies: Abdominal pain, Nausea, Vomiting Musculoskeletal: Reports: Swelling, Extremity Pain Skin: Denies: Rash Neurological: Denies: Headache Hematologic: Denies: Easy bruising Allergy: Denies: Uticaria Physical Exam Vital Signs/Narrative: Vital Signs Temp Pulse Resp BP Pulse Ox 05/08/20 17:00 97.5 F L 89 25 H 169/91 H 85 Inital Vital Signs reviewed: Yes General: Well nourished, Obese Head: Normocephalic Eyes: EOMI ENT: Moist mucous membranes Neck: Supple Cardiovascular: Regular rate, Regular rhythm Respiratory: - - Tachypnea, when laying the patient back to help undress him and take down his leg dressings he became severely dyspneic. He has diminished breath sounds at the bases. He has some scattered wheezing. Abdomen: Soft, Nontender Extremities: Edema Skin: - - Patient has erythema and some superficial desquamation of both legs from the knees down he has palpable dorsalis pedis pulses Neurological: Alert Psychological: Normal affect Diagnostic/Tx/Re-eval Impressions Chest X-Ray 05/08/20 17:49 IMPRESSION: Probable vascular congestion/mild cardiac failure with pleural effusions and cardiomegaly. Electronically Signed: Mike De La Rosa, at 18:02 EST Tel [phone], Service support , 05/08/20 17:49 Chest 1 View (Portable) [RAD] Stat Laboratory Results 05/08/20 05/08/20 17:25 17:25 WBC 8.2 RBC 4.18 L Hgb 12.3 L Hct 40.1 MCV 95.9 H MCH 29.4 MCHC 30.7 L RDW Std Deviation 57.1 H RDW Coeff of [place] 16.1 H Plt Count 202 MPV 10.0 Immature Gran % (Auto) 0.200 Neut % (Auto) 75.8 H Lymph % (Auto) 9.8 L [place] % (Auto) 8.9 Eos % (Auto) 4.9 Baso % (Auto) 0.4 Absolute Neuts (auto) 6.2 Absolute Lymphs (auto) 0.80 L Nucleated RBC % 0 Sodium 138 Potassium 4.1 Chloride 104 Carbon Dioxide 29.0 Anion Gap 5 BUN 17 Creatinine 1.12 Estim Creat Clear Calc 66.99 Est GFR (MDRD) Af Amer 84 Est GFR (MDRD) Non-Af 70 BUN/Creatinine Ratio 15.2 Glucose 107 H Calcium 9.0 Troponin I < 0.015 - Medical Decision Making EKG shows normal sinus rhythm with a right bundle branch block at a rate of 90. This somewhat limited due to artifact but does not appear to show any acute ischemic changes. CBC BMP unremarkable troponin is negative. BNP pending at the time of this dictation. One-view portable chest x-ray on my interpretation shows evidence of pulmonary edema/CHF. X-ray read by radiology as vascular congestion/cardiac failure with pleural effusions. Patient was given IV Bumex. I also gave the patient IV Zosyn for bilateral leg cellulitis. Patient will be discussed with the hospitalist service and admitted. ED Disposition - Plan for ED Patient: Disposition: Acute Care Hospital [facility] Diagnosis: CHF exacerbation, Cellulitis of leg Referrals: Shay Chin MD [Primary Care Provider] -
[2020-05-08] MEDS: Ipratropium/Albuterol Sulfate 3 ML AMPUL.NEB INHALATION (17:45)
--- NOTE | 2020-05-08 17:49 | RAD_ITS ---
STUDY: X-RAY CHEST REASON FOR EXAM: Male, 64 years old. Shortness of breath. History of CHF. TECHNIQUE: Single AP portable view of the chest. COMPARISON: 02/20/2017. FINDINGS: The lungs are mildly hypoexpanded. There is diffuse interstitial changes throughout both lungs most marked at the lung bases. Small pleural effusions are present. Mild stable cardiomegaly. Normal mediastinum and miguel. Normal visualized pulmonary arteries. There is atherosclerotic calcification of the aortic arch with tortuosity. No visualized osseous changes. There is no demonstrated abnormality of the visualized soft tissue structures of the upper abdomen. RAD/Chest 1 View (Portable) IMPRESSION: Probable vascular congestion/mild cardiac failure with pleural effusions and cardiomegaly. Electronically Signed: Mike De La Rosa DO at 18:02 EST Tel [phone], Service support ,
[2020-05-08 17:55] LABS: Absolute Neutrophil Count 6.2 X10^3/uL (2.0-7.7); Basophil# 0.03 X10^3/uL; Basophil% 0.4 % (0-1); Eosinophils% 4.9 % (0-5); Hematocrit 40.1 % (40-54); Hemoglobin 12.3 g/dL (13.0-16.5); Lymphocyte % 9.8 % (19-41); Mean Corp Hgb Conc 30.7 g/dL (32-36); Mean Corpuscular Hgb 29.4 pg (27.0-32.0); Mean Corpuscular Volume 95.9 fL (80-94); Monocyte# 0.73 X10^3/uL; Monocyte% 8.9 % (0-10); NRBC Flagged by Analyzer 0 % (0-5); Neutrophil # 6.21 X10^3/uL (2.7-7.7); Neutrophil % 75.8 % (47-70); Platelet Count 202 K/mm3 (150-450); RBC Distribution Width CV 16.1 % (11.6-14.6); RBC Distribution Width SD 57.1 fl (35.1-43.9); Red Blood Count 4.18 M/mm3 (4.6-6.2); White Blood Count 8.2 K/mm3 (4.4-11.0)
[2020-05-08 18:14] LABS: Anion Gap 5 (5-15); BUN 17 mg/dL (7-18); BUN/Creat Ratio 15.2 RATIO (10-20); Chloride 104 mmol/L (98-107); Creatinine, Serum 1.12 mg/dL (0.70-1.30); EST Glomerular Filtration Rate 70 mL/min (>60); Est Glom Filt Rate - Afr Amer 84 mL/min (>60); Estimated Creatinine Clearance 66.99 ml/min; Glucose 107 mg/dL (74-106); Potassium 4.1 mmol/L (3.5-5.1); Sodium Level 138 mmol/L (136-145)
--- NOTE | 2020-05-08 18:31 | HP.PCM_ITS ---
Problem List (1) Acute systolic (congestive) heart failure Status: Acute (2) Cellulitis of leg Status: Acute Qualifiers: Laterality: unspecified laterality Qualified Code(s): L03.119 - Cellulitis of unspecified part of limb (3) Stasis dermatitis of both legs Status: Chronic (4) Hyperlipidemia Status: Chronic Qualifiers: Hyperlipidemia type: unspecified Qualified Code(s): E78.5 - Hyperlipidemia, unspecified (5) Morbid obesity Status: Chronic (6) Bilateral lower extremity edema Status: Chronic (7) CKD (chronic kidney disease) stage 3, GFR 30-59 ml/min Status: Chronic Qualifiers: Chronic kidney disease stage 3 subtype: unspecified whether 3a or 3b Qualified Code(s): N18.30 - Chronic kidney disease, stage 3 unspecified (8) HTN (hypertension) Status: Chronic Qualifiers: Hypertension type: essential hypertension Qualified Code(s): I10 - Essential (primary) hypertension (9) Type 2 diabetes mellitus Status: Chronic Qualifiers: Diabetes mellitus technician terminal and repeater insulin use: with half-way use Diabetes mellitus complication status: with other specified complication Qualified Code(s): E11.69 - Type 2 diabetes mellitus with other specified complication; Z79.4 - bed bug exterminator (current) use of insulin History of Present Illness Date of Admission: 05/08/20 Chief Complaint: Dyspnea, out of diuretics x 3 days. The patient is a 64 y/o M w/ PMHx: Suspected PAF, Chronic Systolic CHF, HTN, HLD, Diabetes mellitus type II, Morbid obesity, Chronic BL LE Wounds/Venous stasis disease who presents to the [facility] ED on 05/08/20 with history of onset shortness of breath, orthopnea, worse with exertion noted to have run out of his diuretic regimen 3 days prior to current presentation, progressively worsening with sensation of abdominal fullness concurrently prompting ED presentation. He personally notes that his lower extremities are similar to prior, similar redness, similar discharge although mildly increased edema likely secondary to not having his diuretic. He denies any increased pain or any recent fevers, chi lls. Work-up in the ED included T 97.5, heart rate 89, BP 169/91, respiratory rate 25, initially 85% on room air with improvement to 98% on 6 L nasal cannula, CBC with WC 8.2, hemoglobin 12.3, platelet 202 with concurrent lymphopenia, BMP with glucose 105, troponin less than 0.015, BNP pending upon evaluation, chest x-ray with probable vascular congestion with pleural effusions and cardiomegaly, EKG with sinus rhythm with right bundle branch block with no acute evidence of ischemia. In the ED patient ministered Zosyn, Bumex 1 mg IV x1 as well as DuoNeb therapy. Past Medical History Past Medical History (Chronic Problems): Chronic Problems Stasis dermatitis of both legs (Chronic) Systolic CHF, chronic (Chronic) Obesity (BMI 30-39.9) (Chronic) CKD (chronic kidney disease) stage 3, GFR 30-59 ml/min (Chronic) Ulcer of left lower extremity with fat layer exposed (Chronic) Ulcer of right lower extremity with fat layer exposed (Chronic) Type 2 diabetes mellitus (Chronic) Bilateral lower extremity edema (Chronic) CHF exacerbation (Chronic) Hyperlipidemia (Chronic) Morbid obesity (Chronic) HTN (hypertension) (Chronic) Diabetes mellitus (Chronic) Allergies tramadol Allergy (Verified 05/08/20 17:00) Rash Home Medications: Ambulatory Orders Medication Instructions Recorded Amiodarone HCl [Cordarone] 200 mg PO BID #60 tablet 02/21/17 Aspirin [Aspirin, Baby] 81 mg PO DAILY@0800 #30 tab.chew 02/21/17 Pantoprazole Sodium [Protonix] 40 mg PO DAILY #30 tablet 02/21/17 Acetaminophen [Tylenol Tablet] 650 mg PO Q6H PRN PRN #0 tab 01/16/20 Bumetanide [Bumex] 1 mg PO TID #180 tab 01/16/20 Insulin NPH Human Isophane 6 unit SQ BID #1 vial 01/16/20 [Humulin N] Metoprolol Tartrate [Lopressor 25 mg PO BID #60 tab 01/16/20 (beta stephen)] Pen Needle, Diabetic [Pen Needle] 1 ea SUBCUT DAILY #30 dis.needle 01/16/20 Potassium Chloride [K-Dur] 20 meq PO DAILYCM #30 tab 01/16/20 Lactobacillus Acidophilus 1 tab PO BID 01/26/20 [Acidophilus] Surgical History: cholecystectomy, - - Surgery for trauma to the left arm (fracture) with orthopedic plate inserted, cholecystectomy. Psychiatric History: No pertinent psych hx Lives: With Family - Patient lives with his son. Smoking Status: Former smoker - Patient quit cigarette tobacco usage 36 years prior to current presentation with prior to this 1 pack/day cigarette tobacco usage since he had been a teenager. Tobacco Use: Non-smoker Alcohol: Occasional Drugs: None - *Family History Maternal History Items: Pulmonary Disease, - - from complications from pneumonia. Paternal History Items: Heart Disease - Father with a history of [place] age 71. Sibling History Items: Heart Disease - [place] at 55 Review of Systems Constitutional: Reports: Weakness, Fatigue. Denies: Anorexia, Chills, Fever, Malaise, Weight Change HEENT: Denies: Head Aches, Sinus Congestion, Sinus Drainage Cardiovascular: Reports: Edema, Orthopnea. Denies: Chest Pain, Palpitations Respiratory: Reports: Shortness of Breath, Shortness of breath at rest, Shortness of breath upon exertion. Denies: Cough, Sputum production Gastrointestinal: Denies: Abdominal Pain, Nausea, Vomiting Genitourinary: Denies: Dysuria Musculoskeletal: Reports: Back Pain, Joint Pain. Denies: Joint Tenderness Skin: Reports: Skin Changes, Wounds. Denies: Rash Neurological: Denies: Numbness, Tingling, Focal weakness Psychiatric: Denies: Anxiety, Depression, Homicidal Ideations, Suicidal Ideations Hematologic/ Lymphatic: Reports: Anemia. Denies: Easy Bruising, Easy Bleeding VTE Information - Inpt Only VTE Present on Admission: No VTE Mechan Device Prophylaxis: SCD's VTE Pharm Prophylaxis ordered?: Yes Patient Problems: Active and Suspected Problems Cellulitis of leg (Acute) Acute systolic (congestive) heart failure (Acute) Subjective: Patient seated upright in ED bed, mildly fatigued appearance otherwise no acute distress. Objective: Physical Examination: General: awake, alert, oriented x 3 and cooperative, seated upright in the ED bed, fatigued otherwise no acute distress. Skin: normal color, turgor, no icterus, cyanosis except significant bilateral lower extremity needed distal leg venous stasis disease, thickened desquamated regions, stasis blistering, notes similar to prior. HEENT: AT/NC, EOMI, PERRLA, MMM, no carotid bruits, difficult to assess JVD secondary to thickened neck. Lungs: Diminished breath sounds, greater bases, moderate effort, mild rales bases, no ronchi or wheezing. Heart: Regular rate and rhythm; no gallop, rub audible. Abdomen: soft, morbidly obese, NTTP, difficult to discern distention given morbidly obese habitus, distant normal BS, unable to discern HSM secondary to habitus. Extremities: no cyanosis or clubbing, significant bilateral lower extremity stasis disease, see skin, notable edema although difficulty to assess pitting. Neurological: patient awake, alert, oriented as noted; cognitive function intact; pupils equally reactive to light and accomodation; cranial nerves II-XII grossly normal, moving all 4 extremities, no focal deficits, strength moderately global decrease secondary to acute presentation and complaints. Psychiatric: affect appears fatigued otherwise normal, no acute evidence of depressive or anxiety feelings. - Physical Exam Vitals/I&O's: Vital Signs Temp Pulse Resp BP Pulse Ox 97.5 F L 89 19 H 169/91 H 85 05/08/20 17:00 05/08/20 17:46 05/08/20 17:46 05/08/20 17:00 05/08/20 17:00 Oxygen Flow Rate (L/min) 6 Oxygen Delivery Method Nasal Cannula Weight: 294 lb Body Mass Index (BMI) 42.2 Finger Stick Blood Glucose 172 Laboratory Results 05/08/20 17:25: WBC 8.2, RBC 4.18 L, Hgb 12.3 L, Hct 40.1, MCV 95.9 H, MCH 29.4, MCHC 30.7 L, RDW Std Deviation 57.1 H, RDW Coeff of [place]mina 16.1 H, Plt Count 202, MPV 10.0, Immature Gran % (Auto) 0.200, Neut % (Auto) 75.8 H, Lymph % (Auto) 9.8 L, [place] % (Auto) 8.9, Eos % (Auto) 4.9, Baso % (Auto) 0.4, Absolute Neuts (auto) 6.2, Absolute Lymphs (auto) 0.80 L, Nucleated RBC % 0 05/08/20 17:25: Sodium 138, Potassium 4.1, Chloride 104, Carbon Dioxide 29.0, Anion Gap 5, BUN 17, Creatinine 1.12, Estim Creat Clear Calc 66.99, Est GFR (MDRD) Af Amer 84, Est GFR (MDRD) Non-Af 70, BUN/Creatinine Ratio 15.2, Glucose 107 H, Calcium 9.0, Troponin I < 0.015 05/08/20 17:25: B-Natriuretic Peptide Pending Assessment/Plan All Active Problems Bilateral cellulitis of lower leg (Acute) Cellulitis of leg (Acute) Acute systolic (congestive) heart failure (Acute) Acute cholecystitis (Acute) Right upper quadrant abdominal pain (Acute) Abnormal electrocardiogram (Acute) Abnormal echocardiogram (Acute) The patient is a 64 y/o M w/ PMHx: Suspected PAF, Chronic Systolic CHF, HTN, HLD, Diabetes mellitus type II, Morbid obesity, Chronic BL LE Wounds/Venous stasis disease who presents to the [facility] ED on 05/08/20 with history of onset shortness of breath, orthopnea, worse with exertion noted to have run out of his diuretic regimen 3 days prior to current presentation, progressively worsening with sensation of abdominal fullness concurrently prompting ED presentation. 1. Acute Decompensated Systolic CHF: CXR obtained in the ED w/ evident congestion. Patient administered IV Bumex in the ED, will admit to PCU, maintain on cardiac telemetry obtain cardiac enzyme series, obtain serial EKGs, continue IV lasix diuresis, monitor I/Os, maintain on intake restriction, continue medical therapy w/ asa, statin, BB, not on ACEI/ARB. Will obtain TSH and magnesium level. Most recent ECHO noted 01/08/20 with normal LV size, ECHO 50%, severe hypokinetic apex, hypokinetic inferior apex. PRN morphine to decrease afterload, continue oxygen supplementation, if necessary will position w/ upright position with legs off bed to decrease preload. 2. Bilateral lower extremity chronic wounds, ? Infected versus Higher Suspicion worsened venous stasis secondary to #1: We will request wound RN evaluation, dressing changes, continue IV Lasix and continued monitoring and if clinically improved appearance will de-escalate off antibiotic therapy, in the interim we will continue IV Unasyn, MRSA screen and wound culture requested. If able to tolerate would prefer snug Julio Cesar wraps. 3. PAF: Will continue home amiodarone, metoprolol regimen, not anticoagulated. 4. Hypertension: Continue home regimen including metoprolol, IV Lasix as noted above, PRN hydralazine. 5. Hyperlipidemia: Not on statin therapy, will clarify, FLP in AM. 6. Morbid Obesity: Weight loss and lifestyle changes encouraged, nutrition consulted. 7. Diabetes mellitus type II: Hold oral home regimen, continue home insulin regimen, ADA diet, accu checks w/ ISS. 8. DVT prophylaxis: SCDs, Lovenox. 9. CODE status: Patient HCPOA and living will is not set up but discussed that it would likely be his son with whom he lives. Noted if he is interested he could discuss this with case management/social work for assistance in process/set up. Discussed CODE status at length including difference between FULL code, DNR-CCA and DNR-CC status. Following discussions about the differences in these status, requested Full Code status. Advanced Care Planning Face to Face Time: 16 minutes. Inpatient E&M: 11222 Init Hosp L3 Procedures: 69980 Advncd Care Plan 30 Min
[2020-05-08] MEDS: Bumetanide 1 MG/4 ML Vial IV (18:36)
[2020-05-08 20:14] LABS: Magnesium 2.1 mg/dL (1.6-2.6)
[2020-05-08 21:53] LABS: M R Staph aureus DNA By PCR Negative (Negative); Probe Check PASS; Specimen Processing Control PASS; Staph aureus DNA By PCR POSITIVE (Negative)
[2020-05-08 22:04] LABS: BNP,B-Type NATRIURETIC PEPTIDE 511.8 pg/mL (0-100)
[2020-05-08] MEDS: Amiodarone 200 MG Tablet PO (23:23)
[2020-05-08] MEDS: Metoprolol Tartrate 25 MG Tablet PO (23:24)
[2020-05-08] MEDS: Atorvastatin Calcium 20 MG Tablet PO (23:24)
[2020-05-08] MEDS: Furosemide 40 MG/4 ML Vial IV (23:24)
[2020-05-08] MEDS: Famotidine 20 MG Tablet PO (23:25)
[2020-05-08] MEDS: Enoxaparin 40 MG/0.4 ML Syringe SC (23:25)
[2020-05-08 23:41] LABS: Bedside Glucose 102 mg/dL (70-110)
[2020-05-09] VITALS (14 sets, daily range): BP systolic 111–148; BP diastolic 55–69; PULSE 65–85; RESP 16–18; TEMP 36.7–36.8; O2SAT 95–100
[2020-05-09 05:23] LABS: Absolute Lymphocyte Count 0.63 X10^3/uL (0.83-4.51); Absolute Neutrophil Count 6.5 X10^3/uL (2.0-7.7); Basophil# 0.03 X10^3/uL; Basophil% 0.4 % (0-1); Eosinophil# 0.18 X10^3/uL; Eosinophils% 2.2 % (0-5); Hematocrit 37.8 % (40-54); Hemoglobin 11.2 g/dL (13.0-16.5); Lymphocyte # 0.63 X10^3/ul (4.0); Lymphocyte % 7.6 % (19-41); Mean Corp Hgb Conc 29.6 g/dL (32-36); Mean Corpuscular Hgb 28.5 pg (27.0-32.0); Mean Corpuscular Volume 96.2 fL (80-94); Mean Platelet Vol. 9.6 fl (6.2-12.0); Monocyte# 0.98 X10^3/uL; Monocyte% 11.8 % (0-10); NRBC Flagged by Analyzer 0 % (0-5); Neutrophil # 6.45 X10^3/uL (2.7-7.7); Neutrophil % 77.8 % (47-70); Platelet Count 203 K/mm3 (150-450); RBC Distribution Width CV 16.1 % (11.6-14.6); RBC Distribution Width SD 57.2 fl (35.1-43.9); Red Blood Count 3.93 M/mm3 (4.6-6.2); White Blood Count 8.3 K/mm3 (4.4-11.0)
[2020-05-09 05:45] LABS: ALB/GLOB Ratio 0.8 RATIO (0.9-2.4); AST(SGOT) 12 U/L (15-37); Alanine Aminotransfer ALT/SGPT 19 U/L (16-61); Albumin, Serum 2.9 g/dL (3.2-5.0); Alkaline Phosphatase 136 U/L (45-117); Anion Gap 4 (5-15); BUN 16 mg/dL (7-18); BUN/Creat Ratio 14.7 RATIO (10-20); Calcium,Total 8.6 mg/dL (8.5-10.1); Chloride 103 mmol/L (98-107); Cholesterol 87 mg/dL (200); Creatinine, Serum 1.09 mg/dL (0.70-1.30); EST Glomerular Filtration Rate 72 mL/min (>60); Est Glom Filt Rate - Afr Amer 87 mL/min (>60); Estimated Creatinine Clearance 68.83 ml/min; Globulin 3.5 g/dL (2.2-4.2); Glucose 119 mg/dL (74-106); High Density Lipoprotein 40 mg/dL; Potassium 4.3 mmol/L (3.5-5.1); Protein, Total 6.4 g/dL (6.4-8.2); Sodium Level 138 mmol/L (136-145); Triglycerides 47 mg/dL; Very Low Density Lipoprotein 9 mg/dL (5-40)
--- NOTE | 2020-05-09 05:55 | EKG12_ITS ---
Test Reason : SOB Blood Pressure : / mmHG Vent. Rate : 090 BPM Atrial Rate : 090 BPM P-R Int : 206 ms QRS Dur : 120 ms QT Int : 390 ms P-R-T Axes : 072 163 064 degrees QTc Int : 477 ms Normal sinus rhythm Right bundle branch block Septal Infarct, Age undetermined, cannot be excluded Abnormal ECG Confirmed by VINCENT MATTHEWS, DIAZ ([id number]), industrial editor DANIELA HENSON ([id number]) on 05/18/2020 9:56:17 AM Referred By: KATIE Confirmed By:DIAZ KAUR MD
--- NOTE | 2020-05-09 05:55 | RAD_ITS ---
STUDY: X-RAY CHEST REASON FOR EXAM: Male, 64 years old. Dyspnea TECHNIQUE: Single AP portable view of the chest. COMPARISON: Comparison is made with prior study dated 05/08/2020. FINDINGS: EKG electrodes are seen. Since prior study, the CHF has improved. Residual vascular congestion and mild degree of bilateral bibasilar atelectasis persists. Persistent blunting of left costophrenic angle. Normal size heart. Normal mediastinum and miguel. Normal visualized pulmonary arteries. There is atherosclerotic calcification of the aortic arch with tortuosity. There are degenerative changes of the visualized thoracic spine. Normal visualized ribs, clavicles, and shoulders. There is no demonstrated abnormality of the visualized soft tissue structures of the upper abdomen. RAD/Chest 1 View (Portable) IMPRESSION: Interval decrease in the CHF with residual changes present. Electronically Signed: Baljeet Antoine, at 8:53 EST , Service support ,
[2020-05-09] MEDS: Furosemide 40 MG/4 ML Vial IV ×3 (06:34→22:50)
[2020-05-09 07:26] LABS: Bedside Glucose 109 mg/dL (70-110)
--- NOTE | 2020-05-09 08:22 | PN_ITS ---
Patient Problems: Active and Suspected Problems Cellulitis of leg (Acute) Acute systolic (congestive) heart failure (Acute) Objective: Patient has mild shortness of breath mainly exertional dyspnea. No chest pain or chest tightness. Has orthopnea. Bilateral lower extremity edema and lymphedema. Has chronic fissuring, scaling seems chronic fungal infection of toenails. On 4 L of oxygen. Afebrile. Heart rate and blood pressure in normal range.. 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 General: Alert, Oriented x3, Cooperative HEENT: Atraumatic, PERRLA, EOMI, Normocephalic Oral: No Gingival or Mucosal Lesions/ Ulcerations Neck: Supple, elevated JVD, Negative Carotid Bruits Lungs: Air entry diminished in bilateral lung bases. Bilateral fine crackles present in lung bases Cardiovascular: Regular rate, Regular Rhythm, Normal S1, Normal S2, systolic murmur present over LLSB and cardiac apex Abdomen: Bowel Sounds Present, Soft, Non Tender, Non-Distended : No renal angle tenderness. No suprapubic tenderness. Extremities: No edema, Capillary Refill Less than 3 Seconds Skin: No rashes, No breakdown Musculoskeletal: No Tenderness to Palpation of Joints or Extremities Neurological: Cranial nerves II-XII grossly intact, Deep Tendon Reflexes 2+/4 and Symmetrical, Neuro grossly intact Psych/Mental Status: Normal Affect, Appropriate. Vitals/I&O's: Vital Signs Temp Pulse Resp BP Pulse Ox 98.0 F 65 17 113/63 100 05/09/20 03:00 05/09/20 07:00 05/09/20 03:00 05/09/20 03:00 05/09/20 03:00 Oxygen Flow Rate (L/min) 7 Oxygen Delivery Method Nasal Cannula Weight: 288 lb 12.889 oz Body Mass Index (BMI) 41.5 Finger Stick Blood Glucose 172 Intake and Output for Last 24 Hours 05/07/20 05/08/20 05/09/20 23:59 23:59 23:59 Intake Total 100 / 212 112 / 112 Output Total 1550 / 1550 Balance 100 / -688 -1438 / -1438 Microbiology Past 72 Hours 05/08/20 20:30 Wound - Leg, Left Wound Culture - Preliminary Mixed Culture Laboratory Results 05/08/20 17:25: WBC 8.2, RBC 4.18 L, Hgb 12.3 L, Hct 40.1, MCV 95.9 H, MCH 29.4, MCHC 30.7 L, RDW Std Deviation 57.1 H, RDW Coeff of Tahmina 16.1 H, Plt Count 202, MPV 10.0, Immature Gran % (Auto) 0.200, Neut % (Auto) 75.8 H, Lymph % (Auto) 9.8 L, [place] % (Auto) 8.9, Eos % (Auto) 4.9, Baso % (Auto) 0.4, Absolute Neuts (auto) 6.2, Absolute Lymphs (auto) 0.80 L, Nucleated RBC % 0 05/08/20 17:25: Sodium 138, Potassium 4.1, Chloride 104, Carbon Dioxide 29.0, Anion Gap 5, BUN 17, Creatinine 1.12, Estim Creat Clear Calc 66.99, Est GFR (MDRD) Af Amer 84, Est GFR (MDRD) Non-Af 70, BUN/Creatinine Ratio 15.2, Glucose 107 H, Calcium 9.0, Troponin I < 0.015 05/08/20 17:25: B-Natriuretic Peptide 511.8 H 05/08/20 17:25: Magnesium 2.1 05/08/20 20:30: S.aureus Protein A PCR POSITIVE H, MRSA (PCR) Negative 05/08/20 21:24: Troponin I < 0.015 05/08/20 23:06: POC Glucose 102 05/08/20 23:48: Troponin I < 0.015 05/09/20 04:56: WBC 8.3, RBC 3.93 L, Hgb 11.2 L, Hct 37.8 L, MCV 96.2 H, MCH 28.5, MCHC 29.6 L, RDW Std Deviation 57.2 H, RDW Coeff of [place]mina 16.1 H, Plt Count 203, MPV 9.6, Immature Gran % (Auto) 0.200, Neut % (Auto) 77.8 H, Lymph % (Auto) 7.6 L, [place] % (Auto) 11.8 H, Eos % (Auto) 2.2, Baso % (Auto) 0.4, Absolute Neuts (auto) 6.5, Absolute Lymphs (auto) 0.63 L, Nucleated RBC % 0 05/09/20 04:56: Sodium 138, Potassium 4.3, Chloride 103, Carbon Dioxide 31.0, Anion Gap 4 L, BUN 16, Creatinine 1.09, Estim Creat Clear Calc 68.83, Est GFR (MDRD) Af Amer 87, Est GFR (MDRD) Non-Af 72, BUN/Creatinine Ratio 14.7, Glucose 119 H, Calcium 8.6, Total Bilirubin 0.90, AST 12 L, ALT 19, Alkaline Phosphatase 136 H, Total Protein 6.4, Albumin 2.9 L, Globulin 3.5, Albumin/Globulin Ratio 0.8 L, Triglycerides 47, Cholesterol 87, LDL Cholesterol 38, VLDL Cholesterol 9, HDL Cholesterol 40 05/09/20 06:33: POC Glucose 109 Current Medications Acetaminophen (Acetaminophen 325 Mg Tablet) 650 mg PO Q6H PRN PRN PRN Reason: Pain Score 1-10/Temp > 100.7 F Al Hydroxide/Mg Hydroxide (Mag Hydrox/Al Hydrox/Simeth 30 Ml Udc) 30 ml PO Q6H PRN PRN PRN Reason: Gastric Burning Albuterol Sulfate (Albuterol 2.5 Mg/3 Ml Vial.Neb.) 2.5 mg INHALATION Q2H PRN PRN PRN Reason: Dyspnea, wheezing Amiodarone HCl (Amiodarone 200 Mg Tablet) 200 mg PO BID [facility] Last Admin: 05/08/20 23:23 Dose: 200 mg Documented by: Aspirin (Aspirin 81 Mg Tab.Chew) 81 mg PO DAILY@0800 [facility] Atorvastatin Calcium (Atorvastatin Calcium 20 Mg Tablet) 20 mg PO DAILY@2200 [facility] Last Admin: 05/08/20 23:24 Dose: 20 mg Documented by: Enoxaparin Sodium (Enoxaparin 40 Mg/0.4 Ml Syringe) 40 mg SC BID [facility] Last Admin: 05/08/20 23:25 Dose: 40 mg Documented by: Famotidine (Famotidine 20 Mg Tablet) 20 mg PO BID [facility] Last Admin: 05/08/20 23:25 Dose: 20 mg Documented by: Furosemide (Furosemide 40 Mg/4 Ml Vial) 40 mg IV Q8 [facility] Last Admin: 05/09/20 06:34 Dose: 40 mg Documented by: Guaifenesin (Guaifenesin 10 Ml Udc (200mg/10ml)) 20 ml PO Q4H PRN PRN PRN Reason: COUGH Hydralazine HCl (Hydralazine 20 Mg/Ml Vial) 10 mg IV Q4H PRN PRN PRN Reason: SBP > 160 Ampicillin Sodium/Sulbactam (Sodium 3 gm/ Sodium Chloride) 112 mls @ 150 mls/hr IV Q6 [facility] Last Admin: 05/09/20 06:34 Dose: 150 mls/hr Documented by: Sodium Chloride () 250 mls @ 15 mls/hr IV .[id number] PRN PRN Reason: Saline Flush Sodium Chloride () 250 mls @ 15 mls/hr IV .[id number] PRN PRN Reason: Additional IVPB Infusion Insulin Human Lispro (Insulin Lispro 100 Unit/Ml Insuln.Pen) 0 unit SC ACHS [facility]; Protocol Last Admin: 05/09/20 06:38 Dose: Not Given Documented by: Insulin Human NPH (Insulin Nph Human 100 Units/Ml Pen) 6 units SC BIDAC [facility] Magnesium Hydroxide (Magnesium Hydroxide 30 Ml Udc) 30 ml PO DAILY PRN PRN PRN Reason: Constipation Melatonin (Melatonin 3 Mg Tablet) 3 mg PO QHS PRN PRN PRN Reason: INSOMNIA Metoprolol Tartrate (Metoprolol Tartrate 25 Mg Tablet) 25 mg PO BID [facility] Last Admin: 05/08/20 23:24 Dose: 25 mg Documented by: Morphine Sulfate (Morphine 2 Mg/Ml Syringe) 2 mg IV Q3H PRN PRN PRN Reason: Pain Score 6-10 Nitroglycerin (Nitroglycerin (Inpatient Use) 0.4 Mg Tab.Subl) 0.4 mg SUBLINGUAL Q5M PRN PRN Reason: CARDIAC/CHEST PAIN Ondansetron HCl (Ondansetron 4 Mg/2 Ml Vial) 4 mg IV Q8H PRN PRN PRN Reason: NAUSEA/VOMITING Oxycodone HCl (Oxycodone 5 Mg Tablet) 5 mg PO Q4H PRN PRN PRN Reason: Pain Score 4-5 Pantoprazole Sodium (Pantoprazole Sodium 40 Mg Tablet) 40 mg PO DAILY [facility] Potassium Chloride (Potassium Chloride 20 Meq Tablet) 20 meq PO DAILYCM [facility] Prochlorperazine Edisylate (Prochlorperazine 10 Mg/2 Ml Vial) 5 mg IV Q4H PRN PRN PRN Reason: Breakthrough Nausea/Vomiting Psyllium Hydrophilic Mucilloid (Psyllium 1 Packet) 1 packet PO DAILY PRN PRN PRN Reason: Constipation Senna/Docusate Sodium (Senna/Docusate Sodium 1 Tablet) 2 tablet PO BID PRN PRN PRN Reason: Constipation Sodium Chloride (0.9% Saline Lock 10 Ml Syringe) 10 - 40 ml IV UD PRN PRN Reason: SALINE FLUSH Throat Lozenges (Benzocaine/Menthol 1 Lozenge) 1 lozenge MUCOUS MEM Q2H PRN PRN PRN Reason: SORE THROAT STROKE Vital Signs/Narrative: Vital Signs Pulse 05/09/20 07:00 63 Medical Necessity - Tobacco Use Smoking Status: Former smoker Tobacco Use: Non-smoker Assessment/Plan All Active Problems Bilateral cellulitis of lower leg (Acute) Cellulitis of leg (Acute) Acute systolic (congestive) heart failure (Acute) Acute cholecystitis (Acute) Right upper quadrant abdominal pain (Acute) Abnormal electrocardiogram (Acute) Abnormal echocardiogram (Acute) The patient is a 64 y/o M with history of possible PAF, Chronic Systolic CHF, HTN, HLD, Diabetes mellitus type II, Morbid obesity, Chronic BL LE Wounds/Venous stasis disease who was admitted on 05/08/2020 with exertional dyspnea, orthopnea after he ran out of diuretic medication 3 days prior to admission. Patient also has abdominal fullness 1. Acute Decompensated Systolic CHF: CXR individually reviewed shows mild vascular congestion and hilum. Repeat chest x-ray shows improvement in the CHF. Small bilateral pleural effusion. Patient was given IV Bumex in the ER. Currently on Lasix 40 mg IV every 8 hourly, amiodarone, aspirin, atorvastatin hold if heart rate less than 60/min and if persistently low between 60-70/m, can decrease the dose to 25 mg twice daily. Heart failure protocol with fluid restriction, intake and output. ECHO noted 01/08/20 with normal LV size, ECHO 50%, severe hypokinetic apex, hypokinetic inferior apex. 2. Bilateral lower extremity chronic wounds, with scab, lymphedema, venous stasis and chronic toenail onychomycosis: Patient has Julio Cesar wrap bandage. MRSA PCR is negative. Wound photo reviewed. This shows more redness and irritation of both lower legs, thick dry scales which was removed. Stasis ulcer to the left posterior lower leg measuring 6 x 4 cm. Legs and feet were washed with soap and water and dry petroleum was applied with Adaptic dressing. I do not think there is an active infection especially patient does not have fever but more venous stasis. Antibiotic discontinued 3. PAF: continue home amiodarone, metoprolol regimen, not anticoagulated. 4. Hypertension: Continue home regimen including metoprolol, IV Lasix as noted above, PRN hydralazine. 5. Hyperlipidemia: Fasting profile shows LDL 38, HDL 40, triglyceride 47. 6. Morbid Obesity: Weight loss and lifestyle changes encouraged, nutrition consulted. 7. Diabetes mellitus type II: Hold oral home regimen, continue home insulin regimen, ADA diet, accu checks w/ ISS. Accu-Cheks are within a suitable limit. 8. DVT prophylaxis: SCDs, Lovenox. 9. CODE status: Full code Clinical Impression(s) from Imaging Studies Chest X-Ray 05/08/20 17:49 IMPRESSION: Probable vascular congestion/mild cardiac failure with pleural effusions and cardiomegaly. Chest X-Ray 05/09/20 05:55 IMPRESSION: Interval decrease in the CHF with residual changes present. Electronically Signed: Baljeet Antoine, at 8:53 EST , Service support , Inpatient E&M: 72752 Subs Hosp L2
[2020-05-09] MEDS: Aspirin 81 MG TAB.CHEW PO (08:37)
[2020-05-09] MEDS: Insulin NPH Human 100 UNITS/ML PEN 6 UNITS SC (08:37)
[2020-05-09] MEDS: Famotidine 20 MG Tablet PO ×2 (08:38→22:49)
[2020-05-09] MEDS: Pantoprazole Sodium 40 MG Tablet PO (08:39)
[2020-05-09] MEDS: Enoxaparin 40 MG/0.4 ML Syringe SC ×2 (08:41→22:51)
[2020-05-09] MEDS: Amiodarone 200 MG Tablet PO ×2 (08:41→22:48)
[2020-05-09] MEDS: Metoprolol Tartrate 25 MG Tablet PO ×2 (08:41→22:49)
[2020-05-09 08:51] LABS: Bedside Glucose 100 mg/dL (70-110)
--- NOTE | 2020-05-09 10:07 | CASEMGMT ---
Patient does not have a Healthcare Power of Sales Representative [employer] or a Healthcare Living Will. Sugar OLIVER MSW
[2020-05-09 11:31] LABS: Bedside Glucose 133 mg/dL (70-110)
[2020-05-09] MEDS: 0.9% Saline Lock 10 ML Syringe IV ×2 (14:21→22:54)
--- NOTE | 2020-05-09 14:33 | NURSING ---
wound photo: bilateral lower legs
--- NOTE | 2020-05-09 14:33 | NURSING ---
wound photo: left lateral lower leg
--- NOTE | 2020-05-09 15:03 | CASEMGMT ---
PATRICK PHAM assessment: Face to Face with patient for initial transition planning/care coordination assessment. PATRICK PHAM introduced self and role at [facility], pt voices understanding and consents to assessment at this time. Pt is sitting up in bed in no distress at this time and answers all questions appropriately at this time. Pt is A/Ox 4 at this time and answers all questions appropriately at this time. Pt is currently on 4L nc at this time. Care providers, pharmacy, and demographics verified at this time. Presentation: Pt w/ SOB, pt has been out of 'water pills' for 3 days. Hx of CHF Admitting dx: CHF exac, Bilat LE stasis PCP: Giuseppe Specialists: JOSE EDUARDO Workman cardiology; [facility] wound clinic every w/ Dr. Vargas-call to wound center to cancel pt's appt for 05/10/20 at 0830, voice understanding [facility]erred [facility] Living Will/HPOA: Pt states has a friend that is a carpenter general and plans on getting with him to set up a will/LW/HPOA. Pt declines AD info at this time. LNOK: Jose Enrique Garcia, son; Fernanda Stephens, sister Living Arrangements: Pt states lives with son in 1 story home and states no concerns at home at this time. Pt states his room is in the basement but he can stay on 1st floor if he is not feeling well or able to do stairs. Pt states is independent with ADL's. Transportation: Pt states drives self and states no transporatation concerns at this time. DME/HHC: Pt states has a cane and walker and states no need for any further DME at this time. Pt is current with [facility] SN at this time. Pt states no hx of SNF in the past. Resumption of care order placed at this time. Pt states no concerns with going home at time of discharge. Pt states is retired. Pt states does not smoke cigarettes but does drink ETOH occasionally. Pt states no further concerns/needs at this time. CM to follow for home oxygen need and any further discharge planning/needs. Advised pt to ask for CM if any further questions/concerns/needs arise, voices understanding. Pt Goal: [place] PATRICK PHAM
[2020-05-09 17:10] LABS: Bedside Glucose 77 mg/dL (70-110)
[2020-05-09 22:46] LABS: Bedside Glucose 173 mg/dL (70-110)
[2020-05-09] MEDS: Atorvastatin Calcium 20 MG Tablet PO (22:49)
[2020-05-09] MEDS: Insulin Lispro 100 UNIT/ML INSULN.PEN SC (22:55)
[2020-05-10] VITALS (12 sets, daily range): BP systolic 111–132; BP diastolic 54–76; PULSE 62–74; RESP 16–18; TEMP 36.6–36.8; O2SAT 88–98
[2020-05-10] MEDS: Furosemide 40 MG/4 ML Vial IV ×2 (06:24→14:27)
[2020-05-10] MEDS: 0.9% Saline Lock 10 ML Syringe IV ×2 (06:25→14:27)
[2020-05-10 06:35] LABS: Bedside Glucose 119 mg/dL (70-110)
[2020-05-10 06:53] LABS: Absolute Lymphocyte Count 0.75 X10^3/uL (0.83-4.51); Absolute Neutrophil Count 4.8 X10^3/uL (2.0-7.7); Basophil# 0.02 X10^3/uL; Basophil% 0.3 % (0-1); Eosinophils% 4.6 % (0-5); Hematocrit 37.5 % (40-54); Hemoglobin 11.3 g/dL (13.0-16.5); Lymphocyte # 0.75 X10^3/ul (4.0); Lymphocyte % 11.5 % (19-41); Mean Corp Hgb Conc 30.1 g/dL (32-36); Mean Corpuscular Hgb 28.8 pg (27.0-32.0); Mean Corpuscular Volume 95.7 fL (80-94); Mean Platelet Vol. 9.5 fl (6.2-12.0); Monocyte# 0.66 X10^3/uL; Monocyte% 10.1 % (0-10); NRBC Flagged by Analyzer 0 % (0-5); Neutrophil # 4.79 X10^3/uL (2.7-7.7); Neutrophil % 73.3 % (47-70); Platelet Count 205 K/mm3 (150-450); RBC Distribution Width CV 16.2 % (11.6-14.6); RBC Distribution Width SD 57.2 fl (35.1-43.9); Red Blood Count 3.92 M/mm3 (4.6-6.2); White Blood Count 6.5 K/mm3 (4.4-11.0)
[2020-05-10 07:18] LABS: Anion Gap 4 (5-15); BUN 19 mg/dL (7-18); BUN/Creat Ratio 14.7 RATIO (10-20); Calcium,Total 8.8 mg/dL (8.5-10.1); Chloride 100 mmol/L (98-107); Creatinine, Serum 1.29 mg/dL (0.70-1.30); EST Glomerular Filtration Rate 59 mL/min (>60); Est Glom Filt Rate - Afr Amer 72 mL/min (>60); Estimated Creatinine Clearance 58.16 ml/min; Glucose 125 mg/dL (74-106); Magnesium 2.2 mg/dL (1.6-2.6); Potassium 4.2 mmol/L (3.5-5.1); Sodium Level 137 mmol/L (136-145)
--- NOTE | 2020-05-10 08:43 | PCM.PN.HOSP ---
Patient Problems: Active and Suspected Problems Cellulitis of leg (Acute) Acute systolic (congestive) heart failure (Acute) Reason for Visit: Follow-up for heart failure exacerbation Objective: Patient is mild short of breath but overall improving. No chest pain or tightness. Heart rate and blood pressure in normal range. On 2 L of oxygen Physical exam General: Alert, Oriented x3, Cooperative HEENT: Atraumatic, PERRLA, EOMI, Normocephalic Oral: No Gingival or Mucosal Lesions/ Ulcerations Neck: Supple, elevated JVD, Negative Carotid Bruits Lungs: Air entry diminished in bilateral lung bases. Bilateral fine crackles present in lung bases Cardiovascular: Sinus rhythm on quality assurance monitor final. Regular rate, Regular Rhythm, Normal S1, Normal S2, systolic murmur over LLSB and cardiac apex Abdomen: Bowel Sounds Present, Soft, Non Tender, Non-Distended : No renal angle tenderness. No suprapubic tenderness. Extremities: Bilateral leg edema edema, lymphedema. Capillary Refill Less than 3 Seconds Skin: Chronic fissuring, scaling, with fungal infection on toes. Onychomycosis. No tenderness, induration suggestive of cellulitis Musculoskeletal: No Tenderness to Palpation of Joints or Extremities Neurological: Cranial nerves II-XII grossly intact, Deep Tendon Reflexes 2+/4 and Symmetrical, Neuro grossly intact Psych/Mental Status: Normal Affect, Appropriate. Vitals/I&O's: Vital Signs Temp Pulse Resp BP Pulse Ox 98.3 F 66 16 132/76 H 94 05/10/20 03:39 05/10/20 06:54 05/10/20 03:39 05/10/20 03:39 05/10/20 07:17 Oxygen Flow Rate (L/min) 2 Oxygen Delivery Method Nasal Cannula Weight: 278 lb 14.156 oz Body Mass Index (BMI) 41.5 Finger Stick Blood Glucose 172 Intake and Output for Last 24 Hours 05/08/20 05/09/20 05/10/20 23:59 23:59 23:59 Intake Total 100 / 212 1286 / 1286 250 / 250 Output Total 5975 / 5975 850 / 850 Balance 100 / -688 -4689 / -4689 -600 / -600 Microbiology Past 72 Hours 05/08/20 20:30 Wound - Leg, Left Gram Stain - Final 05/08/20 20:30 Wound - Leg, Left Wound Culture - Preliminary Mixed Culture Laboratory Results 05/09/20 08:36: POC Glucose 100 05/09/20 11:19: POC Glucose 133 H 05/09/20 16:50: POC Glucose 77 05/09/20 22:16: POC Glucose 173 H 05/10/20 06:20: POC Glucose 119 H 05/10/20 06:35: WBC 6.5, RBC 3.92 L, Hgb 11.3 L, Hct 37.5 L, MCV 95.7 H, MCH 28.8, MCHC 30.1 L, RDW Std Deviation 57.2 H, RDW Coeff of Tahmina 16.2 H, Plt Count 205, MPV 9.5, Immature Gran % (Auto) 0.200, Neut % (Auto) 73.3 H, Lymph % (Auto) 11.5 L, [place] % (Auto) 10.1 H, Eos % (Auto) 4.6, Baso % (Auto) 0.3, Absolute Neuts (auto) 4.8, Absolute Lymphs (auto) 0.75 L, Nucleated RBC % 0 05/10/20 06:35: Sodium 137, Potassium 4.2, Chloride 100, Carbon Dioxide 33.0 H, Anion Gap 4 L, BUN 19 H, Creatinine 1.29, Estim Creat Clear Calc 58.16, Est GFR (MDRD) Af Amer 72, Est GFR (MDRD) Non-Af 59 L, BUN/Creatinine Ratio 14.7, Glucose 125 H, Calcium 8.8, Magnesium 2.2 Current Medications Acetaminophen (Acetaminophen 325 Mg Tablet) 650 mg PO Q6H PRN PRN PRN Reason: Pain Score 1-10/Temp > 100.7 F Al Hydroxide/Mg Hydroxide (Mag Hydrox/Al Hydrox/Simeth 30 Ml Udc) 30 ml PO Q6H PRN PRN PRN Reason: Gastric Burning Albuterol Sulfate (Albuterol 2.5 Mg/3 Ml Vial.Neb.) 2.5 mg INHALATION Q2H PRN PRN PRN Reason: Dyspnea, wheezing Amiodarone HCl (Amiodarone 200 Mg Tablet) 200 mg PO BID [facility] Last Admin: 05/09/20 22:48 Dose: 200 mg Documented by: Aspirin (Aspirin 81 Mg Tab.Chew) 81 mg PO DAILY@0800 [facility] Last Admin: 05/09/20 08:37 Dose: 81 mg Documented by: Atorvastatin Calcium (Atorvastatin Calcium 20 Mg Tablet) 20 mg PO DAILY@2200 [facility] Last Admin: 05/09/20 22:49 Dose: 20 mg Documented by: Enoxaparin Sodium (Enoxaparin 40 Mg/0.4 Ml Syringe) 40 mg SC BID [facility] Last Admin: 05/09/20 22:51 Dose: 40 mg Documented by: Famotidine (Famotidine 20 Mg Tablet) 20 mg PO BID [facility] Last Admin: 05/09/20 22:49 Dose: 20 mg Documented by: Furosemide (Furosemide 40 Mg/4 Ml Vial) 40 mg IV Q8 [facility] Last Admin: 05/10/20 06:24 Dose: 40 mg Documented by: Guaifenesin (Guaifenesin 10 Ml Udc (200mg/10ml)) 20 ml PO Q4H PRN PRN PRN Reason: COUGH Hydralazine HCl (Hydralazine 20 Mg/Ml Vial) 10 mg IV Q4H PRN PRN PRN Reason: SBP > 160 Sodium Chloride () 250 mls @ 15 mls/hr IV .[id number] PRN PRN Reason: Saline Flush Sodium Chloride () 250 mls @ 15 mls/hr IV .[id number] PRN PRN Reason: Additional IVPB Infusion Insulin Human Lispro (Insulin Lispro 100 Unit/Ml Insuln.Pen) 0 unit SC [facility]; Protocol Last Admin: 05/10/20 06:24 Dose: Not Given Documented by: Magnesium Hydroxide (Magnesium Hydroxide 30 Ml Udc) 30 ml PO DAILY PRN PRN PRN Reason: Constipation Melatonin (Melatonin 3 Mg Tablet) 3 mg PO QHS PRN PRN PRN Reason: INSOMNIA Metoprolol Tartrate (Metoprolol Tartrate 25 Mg Tablet) 25 mg PO BID [facility] Last Admin: 05/09/20 22:49 Dose: 25 mg Documented by: Morphine Sulfate (Morphine 2 Mg/Ml Syringe) 2 mg IV Q3H PRN PRN PRN Reason: Pain Score 6-10 Nitroglycerin (Nitroglycerin (Inpatient Use) 0.4 Mg Tab.Subl) 0.4 mg SUBLINGUAL Q5M PRN PRN Reason: CARDIAC/CHEST PAIN Ondansetron HCl (Ondansetron 4 Mg/2 Ml Vial) 4 mg IV Q8H PRN PRN PRN Reason: NAUSEA/VOMITING Oxycodone HCl (Oxycodone 5 Mg Tablet) 5 mg PO Q4H PRN PRN PRN Reason: Pain Score 4-5 Pantoprazole Sodium (Pantoprazole Sodium 40 Mg Tablet) 40 mg PO DAILY [facility] Last Admin: 05/09/20 08:39 Dose: 40 mg Documented by: Potassium Chloride (Potassium Chlor[facility] 20 Meq Tablet) [facility] Last Admin: 05/09/20 08:38 Dose: 20 meq Documented by: Prochlorperazine Edisylate (Prochlorperazine 10 Mg/2 Ml Vial) 5 mg IV Q4H PRN PRN PRN Reason: Breakthrough Nausea/Vomiting Psyllium Hydrophilic Mucilloid (Psyllium 1 Packet) 1 packet PO DAILY PRN PRN PRN Reason: Constipation Senna/Docusate Sodium (Senna/Docusate Sodium 1 Tablet) 2 tablet PO BID PRN PRN PRN Reason: Constipation Sodium Chloride (0.9% Saline Lock 10 Ml Syringe) 10 - 40 ml IV UD PRN PRN Reason: SALINE FLUSH Last Admin: 05/10/20 06:25 Dose: 10 ml Documented by: Throat Lozenges (Benzocaine/Menthol 1 Lozenge) 1 lozenge MUCOUS MEM Q2H PRN PRN PRN Reason: SORE THROAT STROKE Vital Signs/Narrative: Vital Signs Pulse Pulse Ox 05/10/20 07:17 94 05/10/20 06:54 66 Medical Necessity - Tobacco Use Smoking Status: Former smoker Tobacco Use: Non-smoker Assessment/Plan All Active Problems Bilateral cellulitis of lower leg (Acute) Cellulitis of leg (Acute) Acute systolic (congestive) heart failure (Acute) Acute cholecystitis (Acute) Right upper quadrant abdominal pain (Acute) Abnormal electrocardiogram (Acute) Abnormal echocardiogram (Acute) The patient is a 64 y/o M with history of possible PAF, Chronic Systolic CHF, HTN, HLD, Diabetes mellitus type II, Morbid obesity, Chronic BL LE Wounds/Venous stasis disease who was admitted on 05/08/2020 with exertional dyspnea, orthopnea after he ran out of diuretic medication 3 days prior to admission. Patient also has abdominal fullness 1. Acute Decompensated Systolic CHF: CXR individually reviewed shows mild vascular congestion and hilum. Repeat chest x-ray shows improvement in the CHF. Small bilateral pleural effusion. Patient was given IV Bumex in the ER. Currently on Lasix 40 mg IV every 8 hourly, amiodarone, aspirin, atorvastatin hold if heart rate less than 60/min and if persistently low between 60-70/m, can decrease the dose to 25 mg twice daily. Heart failure protocol with fluid restriction, intake and output. ECHO noted 01/08/20 with normal LV size, ECHO 50%, severe hypokinetic apex, hypokinetic inferior apex. 05/10: Negative fluid balance of 6 L. Decrease in weight of 16 pounds in the last 2 days. Decrease the Lasix to 40 mg IV twice daily. Electrolytes within acceptable limits. Bicarb 33. 2. Bilateral lower extremity chronic wounds, with scab, lymphedema, venous stasis and chronic toenail onychomycosis: Patient has Julio Cesar wrap bandage. MRSA PCR is negative. Wound photo reviewed. This shows more redness and irritation of both lower legs, thick dry scales which was removed. Stasis ulcer to the left posterior lower leg measuring 6 x 4 cm. Legs and feet were washed with soap and water and dry petroleum was applied with Adaptic dressing. I do not think there is an active infection especially patient does not have fever but more venous stasis. Antibiotic discontinued 05/10: Overall legs looks much better with improvement in stasis dermatitis. 3. PAF: continue home amiodarone, metoprolol regimen, not anticoagulated. 4. Hypertension: Continue home regimen including metoprolol, IV Lasix as noted above, PRN hydralazine. 5. Hyperlipidemia: Fasting profile shows LDL 38, HDL 40, triglyceride 47. 6. Morbid Obesity: Weight loss and lifestyle changes encouraged, nutrition consulted. 7. Diabetes mellitus type II: Hold oral home regimen, continue home insulin regimen, ADA diet, accu checks w/ ISS. Accu-Cheks are within a suitable limit. 8. DVT prophylaxis: SCDs, Lovenox. 9. CODE status: Full code Clinical Impression(s) from Imaging Studies Chest X-Ray 05/08/20 17:49 IMPRESSION: Probable vascular congestion/mild cardiac failure with pleural effusions and cardiomegaly. Chest X-Ray 05/09/20 05:55 IMPRESSION: Interval decrease in the CHF with residual changes present. Microbiology Past 72 Hours 05/08/20 20:30 Wound - Leg, Left Gram Stain - Final 05/08/20 20:30 Wound - Leg, Left Wound Culture - Preliminary Staphylococcus aureus Gram negative tayler Gram negative tayler#2 Laboratory Results 05/09/20 16:50: POC Glucose 77 05/09/20 22:16: POC Glucose 173 H 05/10/20 06:20: POC Glucose 119 H 05/10/20 06:35: WBC 6.5, RBC 3.92 L, Hgb 11.3 L, Hct 37.5 L, MCV 95.7 H, MCH 28.8, MCHC 30.1 L, RDW Std Deviation 57.2 H, RDW Coeff of Tahmina 16.2 H, Plt Count 205, MPV 9.5, Immature Gran % (Auto) 0.200, Neut % (Auto) 73.3 H, Lymph % (Auto) 11.5 L, [place] % (Auto) 10.1 H, Eos % (Auto) 4.6, Baso % (Auto) 0.3, Absolute Neuts (auto) 4.8, Absolute Lymphs (auto) 0.75 L, Nucleated RBC % 0 05/10/20 06:35: Sodium 137, Potassium 4.2, Chloride 100, Carbon Dioxide 33.0 H, Anion Gap 4 L, BUN 19 H, Creatinine 1.29, Estim Creat Clear Calc 58.16, Est GFR (MDRD) Af Amer 72, Est GFR (MDRD) Non-Af 59 L, BUN/Creatinine Ratio 14.7, Glucose 125 H, Calcium 8.8, Magnesium 2.2 05/10/20 11:51: POC Glucose 151 H Inpatient E&M: 69631 Subs Hosp L2
[2020-05-10] MEDS: Aspirin 81 MG TAB.CHEW PO (08:47)
[2020-05-10] MEDS: Enoxaparin 40 MG/0.4 ML Syringe SC ×2 (08:48→21:23)
[2020-05-10] MEDS: Metoprolol Tartrate 25 MG Tablet PO ×2 (08:48→21:22)
[2020-05-10] MEDS: Amiodarone 200 MG Tablet PO ×2 (08:49→21:20)
[2020-05-10] MEDS: Pantoprazole Sodium 40 MG Tablet PO (08:50)
[2020-05-10 12:00] LABS: Bedside Glucose 151 mg/dL (70-110)
[2020-05-10 16:50] LABS: Bedside Glucose 140 mg/dL (70-110)
[2020-05-10] MEDS: Insulin Lispro 100 UNIT/ML INSULN.PEN SC (21:20)
[2020-05-10] MEDS: Atorvastatin Calcium 20 MG Tablet PO (21:22)
[2020-05-10 21:35] LABS: Bedside Glucose 162 mg/dL (70-110)
[2020-05-11] VITALS (11 sets, daily range): BP systolic 93–130; BP diastolic 52–67; PULSE 56–87; RESP 16; TEMP 36.2–36.8; O2SAT 84–98
[2020-05-11 06:28] LABS: Anion Gap 2 (5-15); BUN 22 mg/dL (7-18); BUN/Creat Ratio 19.5 RATIO (10-20); Calcium,Total 8.9 mg/dL (8.5-10.1); Chloride 103 mmol/L (98-107); Creatinine, Serum 1.13 mg/dL (0.70-1.30); EST Glomerular Filtration Rate 69 mL/min (>60); Est Glom Filt Rate - Afr Amer 83 mL/min (>60); Glucose 125 mg/dL (74-106); Potassium 3.9 mmol/L (3.5-5.1); Sodium Level 138 mmol/L (136-145)
[2020-05-11 06:45] LABS: Bedside Glucose 112 mg/dL (70-110)
[2020-05-11] MEDS: Aspirin 81 MG TAB.CHEW PO (08:33)
[2020-05-11] MEDS: Amiodarone 200 MG Tablet PO (08:33)
[2020-05-11] MEDS: Furosemide 40 MG/4 ML Vial IV (08:33)
[2020-05-11] MEDS: Pantoprazole Sodium 40 MG Tablet PO (08:34)
[2020-05-11] MEDS: Enoxaparin 40 MG/0.4 ML Syringe SC (08:34)
[2020-05-11] MEDS: 0.9% Saline Lock 10 ML Syringe IV (08:38)
--- NOTE | 2020-05-11 09:18 | DCINST_ITS ---
- Discharge Diagnoses Current Active Problems: Current Active and Chronic Problems Stasis dermatitis of both legs (Chronic) CKD (chronic kidney disease) stage 3, GFR 30-59 ml/min (Chronic) Type 2 diabetes mellitus (Chronic) Bilateral lower extremity edema (Chronic) CHF exacerbation (Chronic) Cellulitis of leg (Acute) Hyperlipidemia (Chronic) Morbid obesity (Chronic) Acute systolic (congestive) heart failure (Acute) HTN (hypertension) (Chronic) You will use the following diet at home:: Calorie/Carbohydrate Controlled (specify 1200, 1400, etc), Cardiac, Fluid restricted (specify 2000 mls, 1500 mls) - 1500 mL daily Your food should be the consistency of: Regular Your liquids should be the consistency of: Regular/Thin Discharge Activity: May Not Drive - Until see his PCP Weight Bearing Status: Weight bearing as tolerated Call your doctor if you observe: Fever of 101 or Higher, Coldness, Increased Pain, Numbness or Tingling, Change in Color, Inability to urinate, Inability to have a bowel movement, Shortness of breath, Dizziness, Fainting spells, Swelling in the ankles, Chest pain, Prolonged hiccoughing, Increased palpitations (irregular heartbeat), Calf discomfort, Uncontrolled pain Additional Instructions: Follow-up in the lymphedema clinic for bilateral lower extremity lymphedema. Allergies/Adverse Reactions: Allergies tramadol Allergy (Verified 05/08/20 17:00) Rash Medications to take at Discharge Aspirin [Aspirin, Baby] 81 mg PO DAILY@0800 #30 tab.chew 02/21/17 Pantoprazole Sodium [Protonix] 40 mg PO DAILY #30 tablet 02/21/17 Acetaminophen [Tylenol Tablet] 650 mg PO Q6H PRN PRN #0 tab 01/16/20 Pen Needle, Diabetic [Pen Needle] 1 ea SUBCUT DAILY #30 dis.needle 01/16/20 Lactobacillus Acidophilus [Acidophilus] 1 tab PO BID 01/26/20 Atorvastatin Calcium 20 mg PO DAILY 05/08/20 Metoprolol Tartrate [Lopressor (beta stephen)] 25 mg PO BID 05/08/20 Potassium Chloride [K-Dur] 20 meq PO DAILYCM 05/08/20 Amiodarone HCl [Cordarone] 200 mg PO BID #0 05/11/20 Furosemide [Lasix] 40 mg PO BID #60 tab 05/11/20 Insulin NPH Human Isophane [Humulin N] 4 unit SQ BID #0 05/11/20 The following prescriptions were given: Furosemide [Lasix] 40 mg PO BID #60 tab Transmission Status: Pending to [facility] Primary Care Physician: Shay Chin MD [Primary Care Provider] - Test Results: Test results from this visit will be discussed in further detail at your follow- up appointment, if applicable. Please Follow Up With: Shya Chin MD When: In 2 weeks. Consider JAZMYN/ARB for heart failure. CKD stage III
--- NOTE | 2020-05-11 09:18 | PCM.DC.SUM ---
Discharge Date and Diagnosis - Problem List Patient Problems: Active and Suspected Problems Cellulitis of leg (Acute) Acute systolic (congestive) heart failure (Acute) Date of Admission: 05/08/20 Date of Discharge: 05/11/20 - Primary Discharge Diagnosis Acute Problems: Active Problems Cellulitis of leg (Acute) Acute systolic (congestive) heart failure (Acute) - Secondary Discharge Diagnosis Chronic Problems: Chronic Problems Stasis dermatitis of both legs (Chronic) Systolic CHF, chronic (Chronic) Obesity (BMI 30-39.9) (Chronic) CKD (chronic kidney disease) stage 3, GFR 30-59 ml/min (Chronic) Ulcer of left lower extremity with fat layer exposed (Chronic) Ulcer of right lower extremity with fat layer exposed (Chronic) Type 2 diabetes mellitus (Chronic) Bilateral lower extremity edema (Chronic) CHF exacerbation (Chronic) Hyperlipidemia (Chronic) Morbid obesity (Chronic) HTN (hypertension) (Chronic) Diabetes mellitus (Chronic) Hospital Course and Treatment Consultations 05/08/20 19:56 Consult: Onc/Wound/treasury management sales consultant Routine Comment: Operations: None Summary of Care Provided: The patient is a 64 y/o M with history of possible PAF, Chronic Systolic CHF, HTN, HLD, Diabetes mellitus type II, Morbid obesity, Chronic BL LE Wounds/Venous stasis disease who was admitted on 05/08/2020 with exertional dyspnea, orthopnea after he ran out of diuretic medication 3 days prior to admission. Patient also has abdominal fullness 1. Acute Decompensated Systolic CHF: CXR individually reviewed shows mild vascular congestion and hilum. Repeat chest x-ray shows improvement in the CHF. Small bilateral pleural effusion. Patient was given IV Bumex in the ER. Currently on Lasix 40 mg IV every 8 hourly, amiodarone, aspirin, atorvastatin hold if heart rate less than 60/min and if persistently low between 60-70/m, can decrease the dose to 25 mg twice daily. Heart failure protocol with fluid restriction, intake and output. ECHO noted 01/08/20 with normal LV size, ECHO 50%, severe hypokinetic apex, hypokinetic inferior apex. Patient was diuresed with Lasix. Patient had negative fluid balance about 8 L. His diuretic Bumex changed to Lasix 40 mg p.o. twice daily. On supplemental K-Dur 20 M EQ daily. 2. Bilateral lower extremity chronic wounds, with scab, lymphedema, venous stasis and chronic toenail onychomycosis: Patient has Julio Cesar wrap bandage. MRSA PCR is negative. Wound photo reviewed. This shows more redness and irritation of both lower legs, thick dry scales which was removed. Stasis ulcer to the left posterior lower leg measuring 6 x 4 cm. Legs and feet were washed with soap and water and dry petroleum was applied with Adaptic dressing. I do not think there is an active infection especially patient does not have fever but more venous stasis. Antibiotic discontinued. Wound from the left leg is growing 1+ MSSA, 1+ Morganella morganii and 1+ Proteus mirabilis probably contamination or colonization. Discussed with ID. Patient's leg much improved after Kerlix dressing and Julio Cesar wrap bandage, no fever or other features of cellulitis. Does not need antibiotic. Follow-up with wound center/lymphedema clinic every week. 3. PAF: continue home amiodarone, metoprolol regimen, not anticoagulated. 4. Hypertension: Continue home regimen including metoprolol. Blood pressure is normal. 5. Hyperlipidemia: Fasting profile shows LDL 38, HDL 40, triglyceride 47. 6. Morbid Obesity: Weight loss and lifestyle changes encouraged, nutrition consulted. 7. Diabetes mellitus type II: Hold oral home regimen, continue home insulin regimen, ADA diet, accu checks w/ ISS. Accu-Cheks are within a suitable limit. 8. DVT prophylaxis: SCDs, Lovenox. 9. CODE status: Full code Discharge medication reconciliation done. Discharge follow-up instructions completed. Discharge process discussed with the patient and all questions were answered to patient's satisfaction. Total time spent, exact 35 minutes on discharge meds reconciliation, examination, coordination of care with nurses and ancillary staff, review of imaging and blood test and discussion with the patient on follow-up instructions Clinical Impression(s) from Imaging Studies Chest X-Ray 05/08/20 17:49 IMPRESSION: Probable vascular congestion/mild cardiac failure with pleural effusions and cardiomegaly. Chest X-Ray 05/09/20 05:55 IMPRESSION: Interval decrease in the CHF with residual changes present. Microbiology Past 72 Hours 05/08/20 20:30 Wound - Leg, Left Gram Stain - Final 05/08/20 20:30 Wound - Leg, Left Wound Culture - Final Staphylococcus aureus Morganella morganii sp sibonii Proteus mirabilis Laboratory Results 05/10/20 21:15: POC Glucose 162 H 05/11/20 05:34: Sodium 138, Potassium 3.9, Chloride 103, Carbon Dioxide 33.0 H, Anion Gap 2 L, BUN 22 H, Creatinine 1.13, Estim Creat Clear Calc 66.40, Est GFR (MDRD) Af Amer 83, Est GFR (MDRD) Non-Af 69, BUN/Creatinine Ratio 19.5, Glucose 125 H, Calcium 8.9 05/11/20 06:35: POC Glucose 112 H 05/11/20 11:45: POC Glucose 159 H Patient Problems: Active and Suspected Problems Cellulitis of leg (Acute) Acute systolic (congestive) heart failure (Acute) Objective: No fever, blood pressure and heart rate in normal range. Pulse ox 94% at rest on room air, 84% on ambulation on room air. 92% on 2 L of oxygen on ambulation. Physical exam General: Alert, Oriented x3, Cooperative HEENT: Atraumatic, PERRLA, EOMI, Normocephalic Oral: No Gingival or Mucosal Lesions/ Ulcerations Neck: Supple, elevated JVD, Negative Carotid Bruits Lungs: Air entry diminished in bilateral lung bases. No crepitation/rhonchi. Cardiovascular: Sinus rhythm on quality assurance monitor final. Regular rate, Regular Rhythm, Normal S1, Normal S2, systolic murmur over LLSB and cardiac apex Abdomen: Bowel Sounds Present, Soft, Non Tender, Non-Distended : No renal angle tenderness. No suprapubic tenderness. Extremities: Bilateral leg edema lymphedema; improved. Capillary Refill Less than 3 Seconds Skin: Chronic fissuring, scaling, with fungal infection on toes has improved. Onychomycosis. No tenderness, induration features of cellulitis. Musculoskeletal: No Tenderness to Palpation of Joints or Extremities Neurological: Cranial nerves II-XII grossly intact, Deep Tendon Reflexes 2+/4 and Symmetrical, Neuro grossly intact Psych/Mental Status: Normal Affect, Appropriate. - Physical Exam Vitals/I&O's: Vital Signs Temp Pulse Resp BP Pulse Ox 97.5 F L 65 16 93/52 L 94 05/11/20 06:38 05/11/20 06:51 05/11/20 06:38 05/11/20 06:38 05/11/20 08:41 Oxygen Flow Rate (L/min) [ 2 AMBULATION with Oxygen] Oxygen Flow Rate (L/min) 2 Oxygen Delivery Method Room Air Weight: 278 lb 14.156 oz Body Mass Index (BMI) 41.5 Finger Stick Blood Glucose 172 Intake and Output for Last 24 Hours 05/09/20 05/10/20 05/11/20 23:59 23:59 23:59 Intake Total 1286 / 1286 1190 / 1430 360 / 360 Output Total 5975 / 5975 3150 / 3400 650 / 650 Balance -4689 / -4689 -1960 / -1970 -290 / -290 Microbiology Past 72 Hours 05/08/20 20:30 Wound - Leg, Left Gram Stain - Final 05/08/20 20:30 Wound - Leg, Left Wound Culture - Final Staphylococcus aureus Morganella morganii sp sibonii Proteus mirabilis Laboratory Results 05/10/20 11:51: POC Glucose 151 H 05/10/20 16:45: POC Glucose 140 H 05/10/20 21:15: POC Glucose 162 H 05/11/20 05:34: Sodium 138, Potassium 3.9, Chloride 103, Carbon Dioxide 33.0 H, Anion Gap 2 L, BUN 22 H, Creatinine 1.13, Estim Creat Clear Calc 66.40, Est GFR (MDRD) Af Amer 83, Est GFR (MDRD) Non-Af 69, BUN/Creatinine Ratio 19.5, Glucose 125 H, Calcium 8.9 05/11/20 06:35: POC Glucose 112 H Current Medications Acetaminophen (Acetaminophen 325 Mg Tablet) 650 mg PO Q6H PRN PRN PRN Reason: Pain Score 1-10/Temp > 100.7 F Al Hydroxide/Mg Hydroxide (Mag Hydrox/Al Hydrox/Simeth 30 Ml Udc) 30 ml PO Q6H PRN PRN PRN Reason: Gastric Burning Albuterol Sulfate (Albuterol 2.5 Mg/3 Ml Vial.Neb.) 2.5 mg INHALATION Q2H PRN PRN PRN Reason: Dyspnea, wheezing Amiodarone HCl (Amiodarone 200 Mg Tablet) 200 mg PO BID [facility] Last Admin: 05/11/20 08:33 Dose: 200 mg Documented by: Aspirin (Aspirin 81 Mg Tab.Chew) 81 mg PO DAILY@0800 [facility] Last Admin: 05/11/20 08:33 Dose: 81 mg Documented by: Atorvastatin Calcium (Atorvastatin Calcium 20 Mg Tablet) 20 mg PO DAILY@2200 [facility] Last Admin: 05/10/20 21:22 Dose: 20 mg Documented by: Enoxaparin Sodium (Enoxaparin 40 Mg/0.4 Ml Syringe) 40 mg SC BID [facility] Last Admin: 05/11/20 08:34 Dose: 40 mg Documented by: Furosemide (Furosemide 40 Mg/4 Ml Vial) 40 mg IV BID@1000,1800 [facility] Last Admin: 05/11/20 08:33 Dose: 40 mg Documented by: Guaifenesin (Guaifenesin 10 Ml Udc (200mg/10ml)) 20 ml PO Q4H PRN PRN PRN Reason: COUGH Hydralazine HCl (Hydralazine 20 Mg/Ml Vial) 10 mg IV Q4H PRN PRN PRN Reason: SBP > 160 Sodium Chloride () 250 mls @ 15 mls/hr IV .[id number] PRN PRN Reason: Saline Flush Sodium Chloride () 250 mls @ 15 mls/hr IV .[id number] PRN PRN Reason: Additional IVPB Infusion Insulin Human Lispro (Insulin Lispro 100 Unit/Ml Insuln.Pen) 0 unit SC [facility]; Protocol Last Admin: 05/11/20 06:36 Dose: Not Given Documented by: Magnesium Hydroxide (Magnesium Hydroxide 30 Ml Udc) 30 ml PO DAILY PRN PRN PRN Reason: Constipation Melatonin (Melatonin 3 Mg Tablet) 3 mg PO QHS PRN PRN PRN Reason: INSOMNIA Metoprolol Tartrate (Metoprolol Tartrate 25 Mg Tablet) 25 mg PO BID [facility] Last Admin: 05/11/20 08:33 Dose: Not Given Documented by: Morphine Sulfate (Morphine 2 Mg/Ml Syringe) 2 mg IV Q3H PRN PRN PRN Reason: Pain Score 6-10 Nitroglycerin (Nitroglycerin (Inpatient Use) 0.4 Mg Tab.Subl) 0.4 mg SUBLINGUAL Q5M PRN PRN Reason: CARDIAC/CHEST PAIN Ondansetron HCl (Ondansetron 4 Mg/2 Ml Vial) 4 mg IV Q8H PRN PRN PRN Reason: NAUSEA/VOMITING Oxycodone HCl (Oxycodone 5 Mg Tablet) 5 mg PO Q4H PRN PRN PRN Reason: Pain Score 4-5 Pantoprazole Sodium (Pantoprazole Sodium 40 Mg Tablet) 40 mg PO DAILY [facility] Last Admin: 05/11/20 08:34 Dose: 40 mg Documented by: Potassium Chloride (Potassium Chloride 20 Meq Tablet) [facility] Admin: 05/11/20 08:33 Dose: 20 meq Documented by: Prochlorperazine Edisylate (Prochlorperazine 10 Mg/2 Ml Vial) 5 mg IV Q4H PRN PRN PRN Reason: Breakthrough Nausea/Vomiting Psyllium Hydrophilic Mucilloid (Psyllium 1 Packet) 1 packet PO DAILY PRN PRN PRN Reason: Constipation Senna/Docusate Sodium (Senna/Docusate Sodium 1 Tablet) 2 tablet PO BID PRN PRN PRN Reason: Constipation Sodium Chloride (0.9% Saline Lock 10 Ml Syringe) 10 - 40 ml IV UD PRN PRN Reason: SALINE FLUSH Last Admin: 05/11/20 08:38 Dose: 10 ml Documented by: Throat Lozenges (Benzocaine/Menthol 1 Lozenge) 1 lozenge MUCOUS MEM Q2H PRN PRN PRN Reason: SORE THROAT Home Medications: Medications to take at Discharge Aspirin [Aspirin, Baby] 81 mg PO DAILY@0800 #30 tab.chew 02/21/17 Pantoprazole Sodium [Protonix] 40 mg PO DAILY #30 tablet 02/21/17 Acetaminophen [Tylenol Tablet] 650 mg PO Q6H PRN PRN #0 tab 01/16/20 Pen Needle, Diabetic [Pen Needle] 1 ea SUBCUT DAILY #30 dis.needle 01/16/20 Lactobacillus Acidophilus [Acidophilus] 1 tab PO BID 01/26/20 Atorvastatin Calcium 20 mg PO DAILY 05/08/20 Metoprolol Tartrate [Lopressor (beta stephen)] 25 mg PO BID 05/08/20 Potassium Chloride [K-Dur] 20 meq PO DAILYCM 05/08/20 Amiodarone HCl [Cordarone] 200 mg PO BID #0 05/11/20 Furosemide [Lasix] 40 mg PO BID #60 tab 05/11/20 Insulin NPH Human Isophane [Humulin N] 4 unit SQ BID #0 05/11/20 Following Prescriptions Were Given to Patient: Furosemide [Lasix] 40 mg PO BID #60 tab Transmission Status: Received by [facility]30 Primary Care Physician: Shay Chin MD [Primary Care Provider] - Please Follow Up With: Shay Chin MD Medical Necessity - Tobacco Use Smoking Status: Former smoker Tobacco Use: Non-smoker Meaningful Use Info Meaningful Use Diagnoses (Choose all that apply): CHF - CHF JULIO CESAR/ARB ordered at discharge?: No Reason JULIO CESAR/ARB not ordered?: Worsening renal function Documented LVEF (%): 50 - Consider outpatient JULIO CESAR/ARB Inpatient E&M: [id number] [facility]
--- NOTE | 2020-05-11 09:55 | CASEMGMT ---
Addendum entered by Shira Vasquez 05/11/20 14:40: Call to [facility] and they can accept pt at this time. Call to [facility] and they are aware of referral and that pt is discharging today, voice understanding. Pt updated on all, voices understanding. Kvng, PCU charge, and Bess RN aware of need for O2 tank still prior to discharge, voices understanding. Pt voices no further questions/concerns/needs at this time. Venkat NGUYEN CM Addendum entered by Shira Vasquez 05/11/20 13:56: Call back from [facility] and they state they cannot take pt at this time. Call to [facility] and she states she has not received entire fax yet at this time. Will call this RN CM back. Venkat NGUYEN CM Addendum entered by Shira Vasquez 05/11/20 13:26: Pt states choice is [facility] and then [facility] at this time. Referral faxed to [facility] and they state they have staffing but not sure if they can accept pt at this time and will call this RN CM back. Referral also faxed to [facility] at this time. CM to follow and awaiting calls back. Attempting to call [facility] without success at this time as their phones are not working at this time. Will keep attempting. Venkat NGUYEN CM Addendum entered by Shira Vasquez 05/11/20 11:53: Call to Julia at [facility] to notify of pt discharge and she states that they cannot take pt back at this time due to they are no longer in network with his insurance at this time. [facility] to call and notify pt at this time. Pt to be provided with list of local in-network and will let this RN CM know his choices. CM to follow. Venkat NGUYEN CM Original Note: Pt does qualify for home oxygen 2L with exertion at this time. Pt states he does have CPAP thru [facility] at this time and would like to use them for home oxygen for continuity of care. Script to be faxed to [facility] once signed by Dr. Morton. ALESSIO order placed for [facility] and pt states no further questions/concerns/needs at this time. Venkat NGUYEN CM
[2020-05-11] MEDS: Insulin Lispro 100 UNIT/ML INSULN.PEN SC (11:47)
[2020-05-11 12:01] LABS: Bedside Glucose 159 mg/dL (70-110)
--- NOTE | 2020-05-11 12:25 | PHA.DC.MR ---
Pharmacy Service has performed discharge medication reconciliation for this patient. The patient's discharge medication list was reviewed for discrepancies and discrepancies were resolved. Home Medications Aspirin [Aspirin, Baby] 81 mg PO DAILY@0800 #30 tab.chew 02/21/17 Pantoprazole Sodium [Protonix] 40 mg PO DAILY #30 tablet 02/21/17 Acetaminophen [Tylenol Tablet] 650 mg PO Q6H PRN PRN #0 tab 01/16/20 Pen Needle, Diabetic [Pen Needle] 1 ea SUBCUT DAILY #30 dis.needle 01/16/20 Lactobacillus Acidophilus [Acidophilus] 1 tab PO BID 01/26/20 Atorvastatin Calcium 20 mg PO DAILY 05/08/20 Metoprolol Tartrate [Lopressor (beta stephen)] 25 mg PO BID 05/08/20 Potassium Chloride [K-Dur] 20 meq PO DAILYCM 05/08/20 Amiodarone HCl [Cordarone] 200 mg PO BID #0 05/11/20 Furosemide [Lasix] 40 mg PO BID #60 tab 05/11/20 Insulin NPH Human Isophane [Humulin N] 4 unit SQ BID #0 05/11/20
[2020-05-11 18:36] LABS: Bedside Glucose 138 mg/dL (70-110)
--- NOTE | 2020-05-14 09:15 | CASEMGMT ---
D/C summary faxed to [facility] and [facility] at this time. Venkat NGUYEN CM
--- NOTE | 2020-05-15 13:13 | CASEMGMT ---
PATRICK PHAM Discharge F/U Phone Call LACE: 12 Strata: 3 Discharge date: 05/11/20 Call date: 05/15/20 Call time: [id number] Admission dx: CHF exac, Bilat LE stasis vs infected chronic Pt states has been doing 'quite well' since discharge. Pt states no questions regarding discharge instructions/medications at this time. Pt states has f/u with Dr. Chin next week and plans to keep. Pt states left a message about 10min ago with wound clinic to get in on for his weekly visit and is waiting to hear back. Pt states [facility] did start of care and states no concerns with them at this time. Pt states no concerns with home oxygen that was set up. Pt states no suggestions for [facility] at this time and states 'I was very well treated.' Pt voices no further questions/concerns/needs at this time. [place] [facility]ICK PHAM
== END 2020-05-11 19:27 | disposition home or self-care (01) | DRG 291 ==
LOC: ED 18:27 → PCU 18:50
PROVIDERS: Admitting Provider Family Medicine; Emergency Provider Emergency Medicine; PCP Family Medicine; Visit Provider Internal Medicine
DX: I13.0 Hypertensive heart and chronic kidney disease with heart failure and stage 1 through stage 4 chronic kidney disease, or unspecified chronic kidney disease (principal); I50.23 Acute on chronic systolic (congestive) heart failure; Z68.41 Body mass index [BMI] 40.0-44.9, adult; E11.22 Type 2 diabetes mellitus with diabetic chronic kidney disease; N18.30 Chronic kidney disease, stage 3 unspecified; B35.1 Tinea unguium; I87.8 Other specified disorders of veins; I89.0 Lymphedema, not elsewhere classified; I48.0 Paroxysmal atrial fibrillation; E78.5 Hyperlipidemia, unspecified; E66.01 Morbid (severe) obesity due to excess calories; Z87.891 Personal history of nicotine dependence; Z79.4 Long term (current) use of insulin; Z79.899 Other long term (current) drug therapy; I87.2 Venous insufficiency (chronic) (peripheral)
CPT/HCPCS: 36415; 71045; 80048; 80053; 80061; 82962; 83735; 83880; 84484; 85025; 87070; 87186; 87205; 87640; 93005; 94640; 97161; 97166; 97802; 99251; 99284; A4216; G0463; J0295; J1940

== ENCOUNTER 2020-05-24 09:30 | Outpatient (RCR) | payer MEDICARE, SELFPAY ==
[2020-04-27 00:12] VITALS: BP 118/56; PULSE 81; RESP 22; TEMP 36.6; O2SAT 91
[2020-05-03 09:55] VITALS: BP 119/53; PULSE 74; RESP 18; TEMP 36.5; BMI 36.1
--- NOTE | 2020-05-03 11:02 | PCM.WC.PN ---
(1) Ulcer of left lower extremity with fat layer exposed Status: Chronic Code(s): L97.922 - Non-pressure chronic ulcer of unspecified part of left lower leg with fat layer exposed (2) Diabetes mellitus Status: Chronic Code(s): E11.9 - Type 2 diabetes mellitus without complications (3) Obesity (BMI 30-39.9) Status: Chronic Code(s): E66.9 - Obesity, unspecified Type of Wound Date of Service: 05/03/20 Chief Complaint: Nonhealing bilateral leg ulcers History of Wound: Mr. Garcia is a 64-year-old who was referred to the wound center due to nonhealing bilateral leg ulcers. Had presented to the emergency room at [facility] on the 05 of January due to significant bilateral lower extremity pain and redness. Managed for bilateral leg cellulitis. Discharged on the . Ulcers have been managed at home by home health. Was on Omnicef at discharge. Still reports significant predominantly left lower extremity pain. Edema is persistent. History of diabetes mellitus type 2 which is not well controlled, fasting blood glucose this morning said to be 178. He denies chills, fever, nausea or vomiting. Progress of Wound: Stable. Switched to Fibracol and Xeroform at his last visit and appears to be doing well. Denies any new concerns at this time. - Physical Exam Vital Signs Temp Pulse Resp BP Pulse Ox 97.7 F L 74 18 119/53 L 91 05/03/20 09:55 05/03/20 09:55 05/03/20 09:55 05/03/20 09:55 04/27/20 00:12 General: Alert, Oriented x3, Cooperative, No apparent distress HEENT: Atraumatic, Normocephalic Oral: Moist Mucosa Neck: Supple Lungs: Normal air movement Abdomen: Non Tender, Obese Extremities: No cyanosis, Edema Skin: Ulcer/ Wound Wound Measurements and Assessment WC - Nurse 1 - General Ulcer Measurement Start: 05/03/20 09:52 Freq: Status: Active Protocol: Activity Type Activity Date Activity User E-Sign Co-Sign Detail Recorded Client Recorded Date Recorded By Document 05/03/20 09:55 DL [id number] 05/03/20 10:06 DL 05/03/20 09:55 Wound Center Nurse 1 [Ulcer Assessment] #3 Left 4th Toe -Current Size (cm) - Length 0.1 -Current Size (cm) - Width 0.1 -Current Size (cm) - Depth 0.2 -Total Square Cm 0.01 -Photo Taken No -Exudate Amt Medium -Exudate Type Serosanguineous -Wound Margin Distinct, Outline Attached -Granulation Amt Small (1-33%) -Granulation Quality [place] -Necrosis Amt Small (1-33%) -Necrotic Tissue Type Adherent Slough -Structure Exposed N/A -Texture (Reina-wound Skin Appearance) Scarring -Moisture (Reina-wound Skin Appearance No Abnormality ) -Color (Reina-wound Skin Appearance) Hemosiderin Staining -Temperature (Reina-wound Skin No Abnormality Appearance) (Pt Warm) -Tenderness on Palpation (Reina-wound No Skin Appearance) -Ulcer Cleansing Wound Cleanser -Foul Odor after Cleansing No -Anesthetic Used 4% Lidocaine Solution #2- Left lateral le -Current Size (cm) - Length 4.5 -Current Size (cm) - Width 2.5 -Current Size (cm) - Depth 0.1 -Total Square Cm 11.25 -Photo Taken No -Exudate Amt Medium -Exudate Type Serosanguineous -Wound Margin Indistinct, Non -Visible -Granulation Amt Medium (34-66%) -Granulation Quality Red -Necrosis Amt Medium (34-66%) -Necrotic Tissue Type Adherent Slough -Structure Exposed N/A -Texture (Reina-wound Skin Appearance) Excoriation, Scarring -Moisture (Reina-wound Skin Appearance Weeping ) -Color (Reina-wound Skin Appearance) Erythema, Hemosiderin Staining -Temperature (Reina-wound Skin No Abnormality Appearance) (Pt Warm) -Tenderness on Palpation (Reina-wound No Skin Appearance) -Ulcer Cleansing Wound Cleanser -Foul Odor after Cleansing Yes, Due to Product Use -Anesthetic Used 4% Lidocaine Solution [Edema Assessment] -Right Calf (cm) 44.4 -Right Ankle (cm) 31.5 -Left Calf (cm) 44.6 -Left Ankle (cm) 29.5 WC - Nurse 2 - General Ulcer CM Notes Start: 05/03/20 09:52 Freq: Status: Active Protocol: Activity Type Activity Date Activity User E-Sign Co-Sign Detail Recorded Client Recorded Date Recorded By Document 05/03/20 10:13 MW [id number] 05/03/20 10:23 MW 05/03/20 10:13 Wound Center Nurse 2 [Procedure/Treatment] #3 Left 4th Toe -Time 10:14 -Correct Patient Yes -Correct Side, Site, Position Yes -Correct Procedure Yes -Procedure Performed Yes -Type of Procedure Debridement -Clinical Debridement Subcutaneous -Tissue Removed Subcutaneous -Post Debridement (cm) - Length 0.4 -Post Debridement (cm) - Width 0.3 -Post Debridement (cm) - Depth 0.1 -Total Square (Post) (cm) 0.12 -Area of Debridement (cm) - Length 0.4 -Area of Debridement (cm) - Width 0.3 -Total Square (Area) (cm) 0.12 -Tunneling No -Undermining/Tunneling No -Circular Undermining No -Wound/Ulcer Outcome Not Healed -Ulcer Cleansing Rinsed/ Irrigated with Saline -Foul Odor after Cleansing No -Bioengineered Tissue No -Bleeding Controlled with Pressure -Offloading No -Treatment Response Procedure Tolerated Well -Debridement - Subq, 1st 20sq cm No #2- Left lateral le -Time 10:14 -Correct Patient Yes -Correct Side, Site, Position Yes -Correct Procedure Yes -Procedure Performed Yes -Type of Procedure Debridement -Clinical Debridement Subcutaneous -Tissue Removed Subcutaneous -Post Debridement (cm) - Length 10.5 -Post Debridement (cm) - Width 9.5 -Post Debridement (cm) - Depth 0.1 -Total Square (Post) (cm) 99.75 -Area of Debridement (cm) - Length 10.5 -Area of Debridement (cm) - Width 9.5 -Total Square (Area) (cm) 99.75 -Tunneling No -Undermining/Tunneling No -Circular Undermining No -Wound/Ulcer Outcome Not Healed -Ulcer Cleansing Rinsed/ Irrigated with Saline -Foul Odor after Cleansing No -Bioengineered Tissue No -Bleeding Controlled with Pressure -Offloading No -Treatment Response Procedure Tolerated Well -Debridement - Subq, 1st 20sq cm Yes -Debridement, SubQ, ea addt'l 20sq cm 4 or part thereof [See Physician Procedure note for Specifics] Pain Scale: 0-10 Numeric [Pain] -Is Patient Pain Free? Yes WC - Nurse 3 - General Ulcer D/C NN Start: 05/03/20 09:52 Freq: Status: Active Protocol: Activity Type Activity Date Activity User E-Sign Co-Sign Detail Recorded Client Recorded Date Recorded By Document 05/03/20 10:34 DL [id number] 05/03/20 10:38 DL 05/03/20 10:34 Wound Care Nurse 3 [Wound Dressing] #3 Left 4th Toe -Ulcer Cleansing Wound Cleanser -Foul Odor after Cleansing No -Primary Dressing Covered/Secured Dry Gauze, with Secured with Tape #2- Left lateral le -Ulcer Cleansing Wound Cleanser -Foul Odor after Cleansing No -Primary Dressing Applied Fibracol Plus 4x4 -Other Dressing xeroform -Primary Dressing Covered/Secured Dry Gauze & with Roll Gauze, Secured with Tape -Fibracol Plus 4x4 1 [Compression Applied] Benny LE -Multi-Layered Wrap Application Multi-Layer Comp - Bilat ($ ) Right -Lotion applied to leg before Yes compression wrap [Post Procedure Tolerated] -Treatment Response Procedure Tolerated Well Pain Scale: 0-10 Numeric [Pain] -Is Patient Pain Free? Yes WC - Visit Discharge [Visit Discharge Information] -Discharge Condition Stable -Ambulatory Status Ambulatory, Unsteady [Facility Notification] -Facility Type Home Health -Orders Sent Yes Musculoskeletal: No Muscle Wasting Neurological: Cranial nerves II-XII grossly intact Debridement Note Post-Debridement Measurements/Treatment WC - Nurse 2 - General Ulcer CM Notes Start: 05/03/20 09:52 Freq: Status: Active Protocol: Activity Type Activity Date Activity User E-Sign Co-Sign Detail Recorded Client Recorded Date Recorded By Document 05/03/20 10:13 MW [id number] 05/03/20 10:23 MW 05/03/20 10:13 Wound Center Nurse 2 #3 Left 4th Toe -Time 10:14 -Correct Patient Yes -Correct Side, Site, Position Yes -Correct Procedure Yes -Procedure Performed Yes -Type of Procedure Debridement -Clinical Debridement Subcutaneous -Tissue Removed Subcutaneous -Post Debridement (cm) - Length 0.4 -Post Debridement (cm) - Width 0.3 -Post Debridement (cm) - Depth 0.1 -Total Square (Post) (cm) 0.12 -Area of Debridement (cm) - Length 0.4 -Area of Debridement (cm) - Width 0.3 -Total Square (Area) (cm) 0.12 -Tunneling No -Undermining/Tunneling No -Circular Undermining No -Wound/Ulcer Outcome Not Healed -Ulcer Cleansing Rinsed/ Irrigated with Saline -Foul Odor after Cleansing No -Bioengineered Tissue No -Bleeding Controlled with Pressure -Offloading No -Treatment Response Procedure Tolerated Well -Debridement - Subq, 1st 20sq cm No #2- Left lateral le -Time 10:14 -Correct Patient Yes -Correct Side, Site, Position Yes -Correct Procedure Yes -Procedure Performed Yes -Type of Procedure Debridement -Clinical Debridement Subcutaneous -Tissue Removed Subcutaneous -Post Debridement (cm) - Length 10.5 -Post Debridement (cm) - Width 9.5 -Post Debridement (cm) - Depth 0.1 -Total Square (Post) (cm) 99.75 -Area of Debridement (cm) - Length 10.5 -Area of Debridement (cm) - Width 9.5 -Total Square (Area) (cm) 99.75 -Tunneling No -Undermining/Tunneling No -Circular Undermining No -Wound/Ulcer Outcome Not Healed -Ulcer Cleansing Rinsed/ Irrigated with Saline -Foul Odor after Cleansing No -Bioengineered Tissue No -Bleeding Controlled with Pressure -Offloading No -Treatment Response Procedure Tolerated Well -Debridement - Subq, 1st 20sq cm Yes -Debridement, SubQ, ea addt'l 20sq cm 4 or part thereof Pain Scale: 0-10 Numeric Is Patient Pain Free? Yes WC - Nurse 3 - General Ulcer D/C NN Start: 05/03/20 09:52 Freq: Status: Active Protocol: Activity Type Activity Date Activity User E-Sign Co-Sign Detail Recorded Client Recorded Date Recorded By Document 05/03/20 10:34 DL [id number] 05/03/20 10:38 DL 05/03/20 10:34 Wound Care Nurse 3 #3 Left 4th Toe -Ulcer Cleansing Wound Cleanser -Foul Odor after Cleansing No -Primary Dressing Covered/Secured with Dry Gauze, Secured with Tape #2- Left lateral le -Ulcer Cleansing Wound Cleanser -Foul Odor after Cleansing No -Primary Dressing Applied Fibracol Plus 4x4 -Other Dressing xeroform -Primary Dressing Covered/Secured with Dry Gauze & Roll Gauze, Secured with Tape -Fibracol Plus 4x4 1 Benny LE -Multi-Layered Wrap Application Multi-Layer Comp - Bilat ($ ) Right -Lotion applied to leg before Yes compression wrap Treatment Response Procedure Tolerated Well Pain Scale: 0-10 Numeric Is Patient Pain Free? Yes WC - Visit Discharge Discharge Condition Stable Ambulatory Status Ambulatory, Unsteady Facility Type Home Health Orders Sent Yes Wound debrided: Left lower extremity cluster Type of Debridement: Excisional debridement Anesthesia Used: 4% Lidocaine Solution Depth: Down to and including healthy tissue, in the subcutaneous layer Instrument Used: 5mm curette Tissue Removed: Slough and devitalized tissue Severity: Fat Layer Exposed Amount of bleeding with debridement: Mild Bleeding Controlled with: Pressure Patient tolerated procedure well - Additional Wound Wound debrided: Left fourth toe Type of Debridement: Excisional debridement Anesthesia Used: 4% Lidocaine Solution Depth: Down to and including healthy tissue, in the subcutaneous layer Percentage of wound debrided: 100 Instrument Used: 3mm curette Tissue Removed: Slough and devitalized tissue Severity: Fat Layer Exposed Amount of bleeding with debridement: Mild Bleeding Controlled with: Pressure Patient tolerated procedure: Patient tolerated procedure well Assessment/Plan Active Problems Obesity (BMI 30-39.9) (Chronic) Ulcer of left lower extremity with fat layer exposed (Chronic) Diabetes mellitus (Chronic) Assessment: Nonhealing bilateral lower extremity ulcers, left greater than right. Significant left eschar to left leg ( lateral ). Poorly controlled diabetes mellitus. Chronic bilateral lower extremity edema. Plan: Debridement done as documented above, procedure was well-tolerated. Switch to Fibrocol with Xeroform over top. Continue 3M wraps for edema management. Change on Thursday, Thursday and then follow-up in the wound center on . Moisturize adequately prior to 3M application. Optimal diabetes management strongly recommended. Strongly advised to elevate lower extremity when seated and in bed. Increase protein intake, vitamin C and zinc. Yet to make a decision about the skin substitute. His questions were answered and he was advised to call with any further questions or concerns. Follow-up in 1 week. This note was generated with [employer] dictation software. It may contain incorrect words, spelling, and punctuation that were not noted in checking the note before signing. [id number]: [id number] June subq tissue 20 sq cm/< Add On Codes: 64225 June subq tissue add-on - Additional square centimeter debrided, please refer to clinical note.
[2020-05-17 10:38] VITALS: BP 119/65; PULSE 74; RESP 18; TEMP 536.8; TEMP 998.2; BMI 36.1
--- NOTE | 2020-05-17 13:59 | PCM.WC.PN ---
(1) Ulcer of left lower extremity with fat layer exposed Status: Chronic Code(s): L97.922 - Non-pressure chronic ulcer of unspecified part of left lower leg with fat layer exposed (2) Diabetes mellitus Status: Chronic Code(s): E11.9 - Type 2 diabetes mellitus without complications (3) Obesity (BMI 30-39.9) Status: Chronic Code(s): E66.9 - Obesity, unspecified Type of Wound Date of Service: 05/17/20 Chief Complaint: Nonhealing bilateral leg ulcers History of Wound: Mr. Garcia is a 64-year-old who was referred to the wound center due to nonhealing bilateral leg ulcers. Had presented to the emergency room at [facility] on the 05 of January due to significant bilateral lower extremity pain and redness. Managed for bilateral leg cellulitis. Discharged on the . Ulcers have been managed at home by home health. Was on Omnicef at discharge. Still reports significant predominantly left lower extremity pain. Edema is persistent. History of diabetes mellitus type 2 which is not well controlled, fasting blood glucose this morning said to be 178. He denies chills, fever, nausea or vomiting. Progress of Wound: S/p recent hospital stay for CHF exacerbation. Doing well post discharge and denies any acute concerns at this time. Still has significant edema. - Physical Exam Vital Signs Temp Pulse Resp BP Pulse Ox 998.2 F H 74 18 119/65 91 05/17/20 10:38 05/17/20 10:38 05/17/20 10:38 05/17/20 10:38 04/27/20 00:12 General: Alert, Oriented x3, Cooperative, No apparent distress HEENT: Atraumatic, Normocephalic Oral: Moist Mucosa Neck: Supple Lungs: Normal air movement Abdomen: Non Tender, Obese Extremities: No cyanosis, Edema Skin: Ulcer/ Wound Wound Measurements and Assessment WC - Nurse 1 - General Ulcer Measurement Start: 05/03/20 09:52 Freq: Status: Active Protocol: Activity Type Activity Date Activity User E-Sign Co-Sign Detail Recorded Client Recorded Date Recorded By Document 05/17/20 10:38 DL [id number] 05/17/20 10:55 DL 05/17/20 10:38 Wound Center Nurse 1 [Ulcer Assessment] #3 Left 4th Toe -Current Size (cm) - Length 0.1 -Current Size (cm) - Width 0.1 -Current Size (cm) - Depth 0.1 -Total Square Cm 0.01 -Photo Taken No -Exudate Amt None Present -Wound Margin Flat & Intact -Granulation Amt Large (67-100%) -Granulation Quality [place] -Necrosis Amt Small (1-33%) -Necrotic Tissue Type Eschar -Texture (Reina-wound Skin Appearance) Scarring -Moisture (Reina-wound Skin Appearance Dry/Scaly ) -Color (Reina-wound Skin Appearance) Hemosiderin Staining -Temperature (Reina-wound Skin No Abnormality Appearance) (Pt Warm) -Tenderness on Palpation (Reina-wound No Skin Appearance) -Ulcer Cleansing Wound Cleanser -Foul Odor after Cleansing No -Anesthetic Used 4% Lidocaine Solution #2- Left lateral le -Current Size (cm) - Length 4 -Current Size (cm) - Width 1.5 -Current Size (cm) - Depth 0.1 -Total Square Cm 6.0 -Photo Taken No -Exudate Amt Medium -Exudate Type Serosanguineous -Wound Margin Indistinct, Non -Visible -Granulation Amt Medium (34-66%) -Granulation Quality [place],Red -Necrosis Amt Medium (34-66%) -Necrotic Tissue Type Adherent Slough -Structure Exposed N/A -Texture (Reina-wound Skin Appearance) Excoriation, Scarring -Moisture (Reina-wound Skin Appearance Weeping,Dry/ ) Scaly -Color (Reina-wound Skin Appearance) Hemosiderin Staining -Temperature (Reina-wound Skin No Abnormality Appearance) (Pt Warm) -Ulcer Cleansing Wound Cleanser -Foul Odor after Cleansing No -Anesthetic Used 4% Lidocaine Solution [Edema Assessment] -Right Calf (cm) 45 -Right Ankle (cm) 33.5 -Left Calf (cm) 47.8 -Left Ankle (cm) 30.2 WC - Nurse 2 - General Ulcer CM Notes Start: 05/03/20 09:52 Freq: Status: Active Protocol: Activity Type Activity Date Activity User E-Sign Co-Sign Detail Recorded Client Recorded Date Recorded By Document 05/17/20 11:09 MW [id number] 05/17/20 11:14 MW 05/17/20 11:09 Wound Center Nurse 2 [Procedure/Treatment] #3 Left 4th Toe -Time 11:12 -Correct Patient Yes -Correct Side, Site, Position Yes -Correct Procedure Yes -Procedure Performed No -Post Debridement (cm) - Length 0 -Post Debridement (cm) - Width 0 -Post Debridement (cm) - Depth 0 -Total Square (Post) (cm) 0 -Wound/Ulcer Outcome Healed- Epithelialized #2- Left lateral le -Time 11:10 -Correct Patient Yes -Correct Side, Site, Position Yes -Correct Procedure Yes -Procedure Performed Yes -Type of Procedure Debridement -Clinical Debridement Subcutaneous -Tissue Removed Subcutaneous -Post Debridement (cm) - Length 5.5 -Post Debridement (cm) - Width 5.5 -Post Debridement (cm) - Depth 0.1 -Total Square (Post) (cm) 30.25 -Area of Debridement (cm) - Length 5.5 -Area of Debridement (cm) - Width 5.5 -Total Square (Area) (cm) 30.25 -Tunneling No -Undermining/Tunneling No -Circular Undermining No -Wound/Ulcer Outcome Not Healed -Ulcer Cleansing Rinsed/ Irrigated with Saline -Foul Odor after Cleansing No -Bioengineered Tissue No -Bleeding Controlled with Pressure -Offloading No -Treatment Response Procedure Tolerated Well -Debridement - Subq, 1st 20sq cm Yes -Debridement, SubQ, ea addt'l 20sq cm 1 or part thereof [See Physician Procedure note for Specifics] Pain Scale: 0-10 Numeric [Pain] -Is Patient Pain Free? Yes Musculoskeletal: No Muscle Wasting Neurological: Cranial nerves II-XII grossly intact Psych/Mental Status: Normal Affect Debridement Note Post-Debridement Measurements/Treatment WC - Nurse 2 - General Ulcer CM Notes Start: 05/03/20 09:52 Freq: Status: Active Protocol: Activity Type Activity Date Activity User E-Sign Co-Sign Detail Recorded Client Recorded Date Recorded By Document 05/03/20 10:13 MW [id number] 05/03/20 10:23 MW Document 05/17/20 11:09 MW [id number] 05/17/20 11:14 MW 05/03/20 05/17/20 10:13 11:09 Wound Center Nurse 2 #3 Left 4th Toe -Time 10:14 11:12 -Correct Patient Yes Yes -Correct Side, Site, Position Yes Yes -Correct Procedure Yes Yes -Procedure Performed Yes No -Type of Procedure Debridement -Clinical Debridement Subcutaneous -Tissue Removed Subcutaneous -Post Debridement (cm) - Length 0.4 0 -Post Debridement (cm) - Width 0.3 0 -Post Debridement (cm) - Depth 0.1 0 -Total Square (Post) (cm) 0.12 0 -Area of Debridement (cm) - Length 0.4 -Area of Debridement (cm) - Width 0.3 -Total Square (Area) (cm) 0.12 -Tunneling No -Undermining/Tunneling No -Circular Undermining No -Wound/Ulcer Outcome Not Healed Healed- Epithelialized -Ulcer Cleansing Rinsed/ Irrigated with Saline -Foul Odor after Cleansing No -Bioengineered Tissue No -Bleeding Controlled with Pressure -Offloading No -Treatment Response Procedure Tolerated Well -Debridement - Subq, 1st 20sq cm No #2- Left lateral le -Time 10:14 11:10 -Correct Patient Yes Yes -Correct Side, Site, Position Yes Yes -Correct Procedure Yes Yes -Procedure Performed Yes Yes -Type of Procedure Debridement Debridement -Clinical Debridement Subcutaneous Subcutaneous -Tissue Removed Subcutaneous Subcutaneous -Post Debridement (cm) - Length 10.5 5.5 -Post Debridement (cm) - Width 9.5 5.5 -Post Debridement (cm) - Depth 0.1 0.1 -Total Square (Post) (cm) 99.75 30.25 -Area of Debridement (cm) - Length 10.5 5.5 -Area of Debridement (cm) - Width 9.5 5.5 -Total Square (Area) (cm) 99.75 30.25 -Tunneling No No -Undermining/Tunneling No No -Circular Undermining No No -Wound/Ulcer Outcome Not Healed Not Healed -Ulcer Cleansing Rinsed/ Rinsed/ Irrigated with Irrigated with Saline Saline -Foul Odor after Cleansing No No -Bioengineered Tissue No No -Bleeding Controlled with Pressure Pressure -Offloading No No -Treatment Response Procedure Procedure Tolerated Well Tolerated Well -Debridement - Subq, 1st 20sq cm Yes Yes -Debridement, SubQ, ea addt'l 20sq cm 4 1 or part thereof Pain Scale: 0-10 Numeric Is Patient Pain Free? Yes Yes WC - Nurse 3 - General Ulcer D/C NN Start: 05/03/20 09:52 Freq: Status: Active Protocol: Activity Type Activity Date Activity User E-Sign Co-Sign Detail Recorded Client Recorded Date Recorded By Document 05/03/20 10:34 DL [id number] 05/03/20 10:38 DL 05/03/20 10:34 Wound Care Nurse 3 #3 Left 4th Toe -Ulcer Cleansing Wound Cleanser -Foul Odor after Cleansing No -Primary Dressing Covered/Secured with Dry Gauze, Secured with Tape #2- Left lateral le -Ulcer Cleansing Wound Cleanser -Foul Odor after Cleansing No -Primary Dressing Applied Fibracol Plus 4x4 -Other Dressing xeroform -Primary Dressing Covered/Secured with Dry Gauze & Roll Gauze, Secured with Tape -Fibracol Plus 4x4 1 Benny LE -Multi-Layered Wrap Application Multi-Layer Comp - Bilat ($ ) Right -Lotion applied to leg before Yes compression wrap Treatment Response Procedure Tolerated Well Pain Scale: 0-10 Numeric Is Patient Pain Free? Yes WC - Visit Discharge Discharge Condition Stable Ambulatory Status Ambulatory, Unsteady Facility Type Home Health Orders Sent Yes Wound debrided: Left Lower extremity ( Cluster ) Type of Debridement: Excisional debridement Anesthesia Used: 4% Lidocaine Solution Depth: Down to and including healthy tissue, in the subcutaneous layer Percentage of wound debrided: 100 Instrument Used: 5mm curette Tissue Removed: Slough and devitalized tissue Severity: Fat Layer Exposed Amount of bleeding with debridement: Mild Bleeding Controlled with: Pressure Patient tolerated procedure well Assessment/Plan Active Problems Obesity (BMI 30-39.9) (Chronic) Ulcer of left lower extremity with fat layer exposed (Chronic) Diabetes mellitus (Chronic) Assessment: Nonhealing bilateral lower extremity ulcers, left greater than right. Significant left eschar to left leg ( lateral ). Poorly controlled diabetes mellitus. Chronic bilateral lower extremity edema. Plan: Debridement done as documented above, procedure was well-tolerated. Continue Fibrocol with Xeroform over top. Continue 3M wraps for edema management. Change on Thursday, Thursday and then follow-up in the wound center on . Moisturize adequately prior to 3M application. Optimal diabetes management strongly recommended. Strongly advised to elevate lower extremity when seated and in bed. Increase protein intake, vitamin C and zinc. Prescription for a lymphedema pump sent. His questions were answered and he was advised to call with any further questions or concerns. Follow-up in 1 week. This note was generated with SMS Assistation software. It may contain incorrect words, spelling, and punctuation that were not noted in checking the note before signing. [id number]: [id number] June subq tissue 20 sq cm/<
[2020-05-24 09:22] VITALS: BP 116/53; RESP 18; TEMP 36; BMI 36.1
--- NOTE | 2020-05-24 10:14 | PN.PCM_ITS ---
(1) Ulcer of left lower extremity with fat layer exposed Status: Chronic Code(s): L97.922 - Non-pressure chronic ulcer of unspecified part of left lower leg with fat layer exposed (2) Diabetes mellitus Status: Chronic Code(s): E11.9 - Type 2 diabetes mellitus without complications (3) Obesity (BMI 30-39.9) Status: Chronic Code(s): E66.9 - Obesity, unspecified (4) Lymphedema Status: Chronic Code(s): I89.0 - Lymphedema, not elsewhere classified Type of Wound Date of Service: 05/24/20 Chief Complaint: Nonhealing bilateral leg ulcers History of Wound: Mr. Garcia is a 64-year-old who was referred to the wound center due to nonhealing bilateral leg ulcers. Had presented to the emergency room at [facility] on the 05 of January due to significant bilateral lower extremity pain and redness. Managed for bilateral leg cellulitis. Discharged on the . Ulcers have been managed at home by home health. Was on Omnicef at discharge. Still reports significant predominantly left lower extremity pain. Edema is persistent. History of diabetes mellitus type 2 which is not well controlled, fasting blood glucose this morning said to be 178. He denies chills, fever, nausea or vomiting. Progress of Wound: New concerns at this time. Still significant edema. Patient states that he is elevating his legs as often as possible. - Physical Exam Vital Signs Temp Pulse Resp BP Pulse Ox 96.8 F L 74 18 116/53 L 91 05/24/20 09:22 05/17/20 10:38 05/24/20 09:22 05/24/20 09:22 04/27/20 00:12 General: Alert, Oriented x3, Cooperative, No apparent distress HEENT: Atraumatic, Normocephalic Oral: Moist Mucosa Neck: Supple Lungs: Normal air movement Abdomen: Non Tender, Obese Extremities: No cyanosis, Edema Skin: Ulcer/ Wound Wound Measurements and Assessment WC - Nurse 1 - General Ulcer Measurement Start: 05/03/20 09:52 Freq: Status: Active Protocol: Activity Type Activity Date Activity User E-Sign Co-Sign Detail Recorded Client Recorded Date Recorded By Document 05/24/20 09:22 DL [id number] 05/24/20 09:33 DL 05/24/20 09:22 Wound Center Nurse 1 [Ulcer Assessment] #2- Left lateral le -Current Size (cm) - Length 2 -Current Size (cm) - Width 1.5 -Current Size (cm) - Depth 0.1 -Total Square Cm 3.0 -Photo Taken No -Exudate Amt Medium -Exudate Type Serosanguineous -Wound Margin Indistinct, Non -Visible -Granulation Amt Medium (34-66%) -Granulation Quality [place] -Necrosis Amt Medium (34-66%) -Necrotic Tissue Type Adherent Slough -Structure Exposed N/A -Texture (Reina-wound Skin Appearance) Excoriation, Rash -Moisture (Reina-wound Skin Appearance Dry/Scaly ) -Color (Reina-wound Skin Appearance) Erythema -Temperature (Reina-wound Skin No Abnormality Appearance) (Pt Warm) -Tenderness on Palpation (Reina-wound No Skin Appearance) -Ulcer Cleansing Wound Cleanser -Foul Odor after Cleansing No -Anesthetic Used 4% Lidocaine Solution [Edema Assessment] -Right Calf (cm) 50.5 -Right Ankle (cm) 31 -Right Foot (cm) 48 -Left Calf (cm) 30.5 WC - Nurse 2 - General Ulcer CM Notes Start: 05/03/20 09:52 Freq: Status: Active Protocol: Activity Type Activity Date Activity User E-Sign Co-Sign Detail Recorded Client Recorded Date Recorded By Document 05/24/20 09:42 MW [id number] 05/24/20 09:46 MW 05/24/20 09:42 Wound Center Nurse 2 [Procedure/Treatment] #2- Left lateral le -Time 09:43 -Correct Patient Yes -Correct Side, Site, Position Yes -Correct Procedure Yes -Procedure Performed Yes -Type of Procedure Debridement -Clinical Debridement Subcutaneous -Tissue Removed Subcutaneous -Post Debridement (cm) - Length 5.0 -Post Debridement (cm) - Width 2.0 -Post Debridement (cm) - Depth 0.1 -Total Square (Post) (cm) 10.00 -Area of Debridement (cm) - Length 5.0 -Area of Debridement (cm) - Width 2.0 -Total Square (Area) (cm) 10.00 -Tunneling No -Undermining/Tunneling No -Circular Undermining No -Wound/Ulcer Outcome Not Healed -Ulcer Cleansing Rinsed/ Irrigated with Saline -Foul Odor after Cleansing No -Bioengineered Tissue No -Bleeding Controlled with Pressure -Offloading No -Treatment Response Procedure Tolerated Well -Debridement - Subq, 1st 20sq cm Yes [See Physician Procedure note for Specifics] Pain Scale: 0-10 Numeric [Pain] -Is Patient Pain Free? Yes Musculoskeletal: No Muscle Wasting Neurological: Cranial nerves II-XII grossly intact Psych/Mental Status: Normal Affect Debridement Note Post-Debridement Measurements/Treatment WC - Nurse 2 - General Ulcer CM Notes Start: 05/03/20 09:52 Freq: Status: Active Protocol: Activity Type Activity Date Activity User E-Sign Co-Sign Detail Recorded Client Recorded Date Recorded By Document 05/03/20 10:13 MW [id number] 05/03/20 10:23 MW Document 05/17/20 11:09 MW [id number] 05/17/20 11:14 MW Document 05/24/20 09:42 MW [id number] 05/24/20 09:46 MW 05/03/20 05/17/20 05/24/20 10:13 11:09 09:42 Wound Center Nurse 2 #3 Left 4th Toe -Time 10:14 11:12 -Correct Patient Yes Yes -Correct Side, Site, Position Yes Yes -Correct Procedure Yes Yes -Procedure Performed Yes No -Type of Procedure Debridement -Clinical Debridement Subcutaneous -Tissue Removed Subcutaneous -Post Debridement (cm) - Length 0.4 0 -Post Debridement (cm) - Width 0.3 0 -Post Debridement (cm) - Depth 0.1 0 -Total Square (Post) (cm) 0.12 0 -Area of Debridement (cm) - Length 0.4 -Area of Debridement (cm) - Width 0.3 -Total Square (Area) (cm) 0.12 -Tunneling No -Undermining/Tunneling No -Circular Undermining No -Wound/Ulcer Outcome Not Healed Healed- Epithelialized -Ulcer Cleansing Rinsed/ Irrigated with Saline -Foul Odor after Cleansing No -Bioengineered Tissue No -Bleeding Controlled with Pressure -Offloading No -Treatment Response Procedure Tolerated Well -Debridement - Subq, 1st 20sq cm No #2- Left lateral le -Time 10:14 11:10 09:43 -Correct Patient Yes Yes Yes -Correct Side, Site, Position Yes Yes Yes -Correct Procedure Yes Yes Yes -Procedure Performed Yes Yes Yes -Type of Procedure Debridement Debridement Debridement -Clinical Debridement Subcutaneous Subcutaneous Subcutaneous -Tissue Removed Subcutaneous Subcutaneous Subcutaneous -Post Debridement (cm) - Length 10.5 5.5 5.0 -Post Debridement (cm) - Width 9.5 5.5 2.0 -Post Debridement (cm) - Depth 0.1 0.1 0.1 -Total Square (Post) (cm) 99.75 30.25 10.00 -Area of Debridement (cm) - Length 10.5 5.5 5.0 -Area of Debridement (cm) - Width 9.5 5.5 2.0 -Total Square (Area) (cm) 99.75 30.25 10.00 -Tunneling No No No -Undermining/Tunneling No No No -Circular Undermining No No No -Wound/Ulcer Outcome Not Healed Not Healed Not Healed -Ulcer Cleansing Rinsed/ Rinsed/ Rinsed/ Irrigated with Irrigated with Irrigated with Saline Saline Saline -Foul Odor after Cleansing No No No -Bioengineered Tissue No No No -Bleeding Controlled with Pressure Pressure Pressure -Offloading No No No -Treatment Response Procedure Procedure Procedure Tolerated Well Tolerated Well Tolerated Well -Debridement - Subq, 1st 20sq cm Yes Yes Yes -Debridement, SubQ, ea addt'l 20sq cm 4 1 or part thereof Pain Scale: 0-10 Numeric Is Patient Pain Free? Yes Yes Yes WC - Nurse 3 - General Ulcer D/C NN Start: 05/03/20 09:52 Freq: Status: Active Protocol: Activity Type Activity Date Activity User E-Sign Co-Sign Detail Recorded Client Recorded Date Recorded By Document 05/03/20 10:34 DL [id number] 05/03/20 10:38 DL Document 05/17/20 11:15 PL [id number] 05/21/20 13:16 PL 05/03/20 05/17/20 10:34 11:15 Wound Care Nurse 3 #3 Left 4th Toe -Ulcer Cleansing Wound Cleanser -Foul Odor after Cleansing No -Primary Dressing Covered/Secured with Dry Gauze, Secured with Tape #2- Left lateral le -Ulcer Cleansing Wound Cleanser -Foul Odor after Cleansing No -Primary Dressing Applied Fibracol Plus 4x4 -Other Dressing xeroform -Primary Dressing Covered/Secured with Dry Gauze & Roll Gauze, Secured with Tape -Fibracol Plus 4x4 1 Benny LE -Multi-Layered Wrap Application Multi-Layer Multi-Layer Comp - Bilat ($ Comp - Bilat ($ ) ) Right -Lotion applied to leg before Yes compression wrap Treatment Response Procedure Tolerated Well Pain Scale: 0-10 Numeric Is Patient Pain Free? Yes Yes WC - Visit Discharge Discharge Condition Stable Ambulatory Status Ambulatory, Unsteady Facility Type Home Health Orders Sent Yes Wound debrided: Left lower extremity cluster Type of Debridement: Excisional debridement Anesthesia Used: 4% Lidocaine Solution Depth: Down to and including healthy tissue, in the subcutaneous layer Percentage of wound debrided: 100 Instrument Used: 5mm curette Tissue Removed: Slough and devitalized tissue Severity: Fat Layer Exposed Amount of bleeding with debridement: Mild Bleeding Controlled with: Pressure Patient tolerated procedure well Assessment/Plan Active Problems Obesity (BMI 30-39.9) (Chronic) Ulcer of left lower extremity with fat layer exposed (Chronic) Diabetes mellitus (Chronic) Assessment: Nonhealing bilateral lower extremity ulcers, left greater than right. Significant left eschar to left leg ( lateral ). Poorly controlled diabetes mellitus. Chronic bilateral lower extremity edema. Plan: Debridement done as documented above, procedure was well-tolerated. Continue Fibrocol with Xeroform over top. Continue 3M wraps for edema management. Change on Thursday, Thursday and then follow-up in the wound center on . Moisturize adequately prior to 3M application. Optimal diabetes management strongly recommended. Strongly advised to elevate lower extremity when seated and in bed. Increase protein intake, vitamin C and zinc. Prescription for a lymphedema pump sent. His questions were answered and he was advised to call with any further questions or concerns. Follow-up in 1 week. This note was generated with ebookpie dictation software. It may contain incorrect words, spelling, and punctuation that were not noted in checking the note before signing. [id number]: [id number] June subq tissue 20 sq cm/<
== END 2020-05-27 23:59 ==
LOC: WC 09:30
PROVIDERS: PCP Family Medicine; Referring Provider Family Medicine; Visit Provider Internal Medicine
DX: E11.621 Type 2 diabetes mellitus with foot ulcer (principal); E11.65 Type 2 diabetes mellitus with hyperglycemia; L97.922 Non-pressure chronic ulcer of unspecified part of left lower leg with fat layer exposed; I89.0 Lymphedema, not elsewhere classified; E66.9 Obesity, unspecified; L03.115 Cellulitis of right lower limb; L03.116 Cellulitis of left lower limb; R60.0 Localized edema; Z68.30 Body mass index [BMI] 30.0-30.9, adult
CPT/HCPCS: 11042; 11045; 29581

== ENCOUNTER 2020-06-21 09:30 | Outpatient (RCR) | payer MEDICARE, SELFPAY ==
[2020-05-24 10:17] VITALS: BMI 41.5
[2020-05-28 00:14] VITALS: BP 116/53; PULSE 74; RESP 18; TEMP 36; O2SAT 91
[2020-05-31 09:20] VITALS: BP 118/58; PULSE 85; RESP 22; TEMP 36.3; BMI 41.5
--- NOTE | 2020-05-31 11:14 | PCM.WC.PN ---
(1) Ulcer of left lower extremity with fat layer exposed Status: Chronic Code(s): L97.922 - Non-pressure chronic ulcer of unspecified part of left lower leg with fat layer exposed (2) Lymphedema Status: Chronic Code(s): I89.0 - Lymphedema, not elsewhere classified (3) Obesity (BMI 30-39.9) Status: Chronic Code(s): E66.9 - Obesity, unspecified (4) Stasis dermatitis of both legs Status: Chronic Code(s): I87.2 - Venous insufficiency (chronic) (peripheral) Type of Wound Date of Service: 05/31/20 Chief Complaint: Nonhealing bilateral leg ulcers History of Wound: Mr. Garcia is a 64-year-old who was referred to the wound center due to nonhealing bilateral leg ulcers. Had presented to the emergency room at [facility] on the 05 of January due to significant bilateral lower extremity pain and redness. Managed for bilateral leg cellulitis. Discharged on the . Ulcers have been managed at home by home health. Was on Omnicef at discharge. Still reports significant predominantly left lower extremity pain. Edema is persistent. History of diabetes mellitus type 2 which is not well controlled, fasting blood glucose this morning said to be 178. He denies chills, fever, nausea or vomiting. Progress of Wound: New concerns at this time. Still significant edema. Patient states that he is elevating his legs as often as possible. - Physical Exam Vital Signs Temp Pulse Resp BP Pulse Ox 97.4 F L 85 22 H 118/58 L 91 05/31/20 09:20 05/31/20 09:20 05/31/20 09:20 05/31/20 09:20 05/28/20 00:14 General: Alert, Oriented x3, Cooperative, No apparent distress HEENT: Atraumatic, Normocephalic Oral: Moist Mucosa Neck: Supple Lungs: Normal air movement Abdomen: Non Tender, Obese Extremities: No cyanosis, Edema Skin: Ulcer/ Wound Wound Measurements and Assessment WC - Nurse 1 - General Ulcer Measurement Start: 05/31/20 09:18 Freq: Status: Active Protocol: Activity Type Activity Date Activity User E-Sign Co-Sign Detail Recorded Client Recorded Date Recorded By Document 05/31/20 09:20 DL [id number] 05/31/20 09:31 DL 05/31/20 09:20 Wound Center Nurse 1 [Ulcer Assessment] #2- Left lateral le -Current Size (cm) - Length 4 -Current Size (cm) - Width 1 -Current Size (cm) - Depth 0.1 -Total Square Cm 4 -Photo Taken No -Exudate Amt Small -Wound Margin Indistinct, Non -Visible -Granulation Amt Medium (34-66%) -Granulation Quality [place] -Necrosis Amt Medium (34-66%) -Necrotic Tissue Type Adherent Slough -Structure Exposed N/A -Texture (Reina-wound Skin Appearance) Scarring -Moisture (Reina-wound Skin Appearance Weeping ) -Color (Reina-wound Skin Appearance) Hemosiderin Staining,Rubor -Temperature (Reina-wound Skin No Abnormality Appearance) (Pt Warm) -Tenderness on Palpation (Reina-wound No Skin Appearance) -Ulcer Cleansing Wound Cleanser -Foul Odor after Cleansing No -Anesthetic Used 4% Lidocaine Solution [Edema Assessment] -Right Calf (cm) 49.5 -Right Ankle (cm) 33 -Left Calf (cm) 48 -Left Ankle (cm) 30 WC - Nurse 2 - General Ulcer CM Notes Start: 05/31/20 09:18 Freq: Status: Active Protocol: Activity Type Activity Date Activity User E-Sign Co-Sign Detail Recorded Client Recorded Date Recorded By Document 05/31/20 09:57 MW [id number] 05/31/20 10:00 MW 05/31/20 09:57 Wound Center Nurse 2 [Procedure/Treatment] #2- Left lateral le -Time 09:57 -Correct Patient Yes -Correct Side, Site, Position Yes -Correct Procedure Yes -Procedure Performed Yes -Type of Procedure Debridement -Clinical Debridement Subcutaneous -Tissue Removed Subcutaneous -Post Debridement (cm) - Length 5.5 -Post Debridement (cm) - Width 2.0 -Post Debridement (cm) - Depth 0.1 -Total Square (Post) (cm) 11.00 -Area of Debridement (cm) - Length 5.5 -Area of Debridement (cm) - Width 2.0 -Total Square (Area) (cm) 11.00 -Tunneling No -Undermining/Tunneling No -Circular Undermining No -Wound/Ulcer Outcome Not Healed -Ulcer Cleansing Rinsed/ Irrigated with Saline -Foul Odor after Cleansing No -Bioengineered Tissue No -Bleeding Controlled with Pressure -Offloading No -Treatment Response Procedure Tolerated Well -Debridement - Subq, 1st 20sq cm Yes [See Physician Procedure note for Specifics] Pain Scale: 0-10 Numeric [Pain] -Is Patient Pain Free? Yes Musculoskeletal: No Muscle Wasting Neurological: Cranial nerves II-XII grossly intact Psych/Mental Status: Normal Affect Debridement Note Post-Debridement Measurements/Treatment WC - Nurse 2 - General Ulcer CM Notes Start: 05/31/20 09:18 Freq: Status: Active Protocol: Activity Type Activity Date Activity User E-Sign Co-Sign Detail Recorded Client Recorded Date Recorded By Document 05/31/20 09:57 MW [id number] 05/31/20 10:00 MW 05/31/20 09:57 Wound Center Nurse 2 #2- Left lateral le -Time 09:57 -Correct Patient Yes -Correct Side, Site, Position Yes -Correct Procedure Yes -Procedure Performed Yes -Type of Procedure Debridement -Clinical Debridement Subcutaneous -Tissue Removed Subcutaneous -Post Debridement (cm) - Length 5.5 -Post Debridement (cm) - Width 2.0 -Post Debridement (cm) - Depth 0.1 -Total Square (Post) (cm) 11.00 -Area of Debridement (cm) - Length 5.5 -Area of Debridement (cm) - Width 2.0 -Total Square (Area) (cm) 11.00 -Tunneling No -Undermining/Tunneling No -Circular Undermining No -Wound/Ulcer Outcome Not Healed -Ulcer Cleansing Rinsed/ Irrigated with Saline -Foul Odor after Cleansing No -Bioengineered Tissue No -Bleeding Controlled with Pressure -Offloading No -Treatment Response Procedure Tolerated Well -Debridement - Subq, 1st 20sq cm Yes Pain Scale: 0-10 Numeric Is Patient Pain Free? Yes Wound debrided: Left lower extremity cluster Type of Debridement: Excisional debridement Anesthesia Used: 4% Lidocaine Solution Depth: Down to and including healthy tissue, in the subcutaneous layer Percentage of wound debrided: 100 Instrument Used: 5mm curette Tissue Removed: Slough and devitalized tissue Severity: Fat Layer Exposed Amount of bleeding with debridement: Mild Bleeding Controlled with: Pressure Patient tolerated procedure well Assessment/Plan Active Problems Stasis dermatitis of both legs (Chronic) Obesity (BMI 30-39.9) (Chronic) Ulcer of left lower extremity with fat layer exposed (Chronic) Lymphedema (Chronic) Assessment: Nonhealing bilateral lower extremity ulcers, left greater than right. Significant left eschar to left leg ( lateral ). Poorly controlled diabetes mellitus. Chronic bilateral lower extremity edema. Plan: Debridement done as documented above, procedure was well-tolerated. Continue Fibrocol with Xeroform over top. We will try Unna boots again. Change on Thursday, Thursday and then follow-up in the wound center on . Moisturize adequatelY. Optimal diabetes management strongly recommended. Strongly advised to elevate lower extremity when seated and in bed. He apparently is not elevating his extremities as well as issued. Should get his lymphedema pumps soon. Increase protein intake, vitamin C and zinc. His questions were answered and he was advised to call with any further questions or concerns. Follow-up in 1 week. This note was generated with [employer] dictation software. It may contain incorrect words, spelling, and punctuation that were not noted in checking the note before signing. [id number]: [id number] June subq tissue 20 sq cm/<
[2020-06-07 09:23] VITALS: BP 126/65; PULSE 75; RESP 20; TEMP 36.5; BMI 41.5
--- NOTE | 2020-06-07 10:23 | PN.PCM_ITS ---
(1) Ulcer of left lower extremity with fat layer exposed Status: Chronic Code(s): L97.922 - Non-pressure chronic ulcer of unspecified part of left lower leg with fat layer exposed (2) Lymphedema Status: Chronic Code(s): I89.0 - Lymphedema, not elsewhere classified (3) Obesity (BMI 30-39.9) Status: Chronic Code(s): E66.9 - Obesity, unspecified (4) Stasis dermatitis of both legs Status: Chronic Code(s): I87.2 - Venous insufficiency (chronic) (peripheral) Type of Wound Date of Service: 06/07/20 Chief Complaint: Nonhealing bilateral leg ulcers History of Wound: Mr. Garcia is a 64-year-old who was referred to the wound center due to nonhealing bilateral leg ulcers. Had presented to the emergency room at [facility] on the 05 of January due to significant bilateral lower extremity pain and redness. Managed for bilateral leg cellulitis. Discharged on the . Ulcers have been managed at home by home health. Was on Omnicef at discharge. Still reports significant predominantly left lower extremity pain. Edema is persistent. History of diabetes mellitus type 2 which is not well controlled, fasting blood glucose this morning said to be 178. He denies chills, fever, nausea or vomiting. Progress of Wound: Tolerated the Unna boot well. No new concerns at this time. - Physical Exam Vital Signs Temp Pulse Resp BP Pulse Ox 97.7 F L 75 20 H 126/65 H 91 06/07/20 09:23 06/07/20 09:23 06/07/20 09:23 06/07/20 09:23 05/28/20 00:14 General: Alert, Oriented x3, Cooperative, No apparent distress HEENT: Atraumatic, Normocephalic Oral: Moist Mucosa Neck: Supple Lungs: Normal air movement Abdomen: Obese Extremities: No cyanosis, Edema Skin: Ulcer/ Wound Wound Measurements and Assessment WC - Nurse 1 - General Ulcer Measurement Start: 05/31/20 09:18 Freq: Status: Active Protocol: Activity Type Activity Date Activity User E-Sign Co-Sign Detail Recorded Client Recorded Date Recorded By Document 06/07/20 09:23 DL [id number] 06/07/20 09:34 DL 06/07/20 09:23 Wound Center Nurse 1 [Ulcer Assessment] #2- Left lateral le -Current Size (cm) - Length 2.6 -Current Size (cm) - Width 0.8 -Current Size (cm) - Depth 0.1 -Total Square Cm 2.08 -Photo Taken No -Exudate Amt Small -Exudate Type Serosanguineous -Wound Margin Distinct, Outline Attached -Granulation Amt None Present (0 %) -Necrosis Amt Large (67-100%) -Necrotic Tissue Type Adherent Slough -Structure Exposed N/A -Texture (Reina-wound Skin Appearance) Excoriation, Scarring -Moisture (Reina-wound Skin Appearance Dry/Scaly ) -Color (Reina-wound Skin Appearance) Hemosiderin Staining -Temperature (Reina-wound Skin No Abnormality Appearance) (Pt Warm) -Tenderness on Palpation (Reina-wound No Skin Appearance) -Ulcer Cleansing Wound Cleanser -Foul Odor after Cleansing No -Anesthetic Used 4% Lidocaine Solution [Edema Assessment] -Right Calf (cm) 46 -Right Ankle (cm) 31.3 -Left Calf (cm) 45 -Left Ankle (cm) 31 WC - Nurse 2 - General Ulcer CM Notes Start: 05/31/20 09:18 Freq: Status: Active Protocol: Activity Type Activity Date Activity User E-Sign Co-Sign Detail Recorded Client Recorded Date Recorded By Document 06/07/20 09:39 MW [id number] 06/07/20 09:43 MW 06/07/20 09:39 Wound Center Nurse 2 [Procedure/Treatment] #2- Left lateral le -Time 09:39 -Correct Patient Yes -Correct Side, Site, Position Yes -Correct Procedure Yes -Procedure Performed Yes -Type of Procedure Debridement -Clinical Debridement Subcutaneous -Tissue Removed Subcutaneous -Post Debridement (cm) - Length 4.0 -Post Debridement (cm) - Width 1.6 -Post Debridement (cm) - Depth 0.1 -Total Square (Post) (cm) 6.40 -Area of Debridement (cm) - Length 4.0 -Area of Debridement (cm) - Width 1.6 -Total Square (Area) (cm) 6.40 -Tunneling No -Undermining/Tunneling No -Circular Undermining No -Wound/Ulcer Outcome Not Healed -Ulcer Cleansing Rinsed/ Irrigated with Saline -Foul Odor after Cleansing No -Bioengineered Tissue No -Bleeding Controlled with Pressure -Offloading No -Treatment Response Procedure Tolerated Well -Debridement - Subq, 1st 20sq cm Yes [See Physician Procedure note for Specifics] Pain Scale: 0-10 Numeric [Pain] -Is Patient Pain Free? Yes Musculoskeletal: No Muscle Wasting Neurological: Cranial nerves II-XII grossly intact Psych/Mental Status: Normal Affect Debridement Note Post-Debridement Measurements/Treatment WC - Nurse 2 - General Ulcer CM Notes Start: 05/31/20 09:18 Freq: Status: Active Protocol: Activity Type Activity Date Activity User E-Sign Co-Sign Detail Recorded Client Recorded Date Recorded By Document 05/31/20 09:57 MW [id number] 05/31/20 10:00 MW Document 06/07/20 09:39 MW [id number] 06/07/20 09:43 MW 05/31/20 06/07/20 09:57 09:39 Wound Center Nurse 2 #2- Left lateral le -Time 09:57 09:39 -Correct Patient Yes Yes -Correct Side, Site, Position Yes Yes -Correct Procedure Yes Yes -Procedure Performed Yes Yes -Type of Procedure Debridement Debridement -Clinical Debridement Subcutaneous Subcutaneous -Tissue Removed Subcutaneous Subcutaneous -Post Debridement (cm) - Length 5.5 4.0 -Post Debridement (cm) - Width 2.0 1.6 -Post Debridement (cm) - Depth 0.1 0.1 -Total Square (Post) (cm) 11.00 6.40 -Area of Debridement (cm) - Length 5.5 4.0 -Area of Debridement (cm) - Width 2.0 1.6 -Total Square (Area) (cm) 11.00 6.40 -Tunneling No No -Undermining/Tunneling No No -Circular Undermining No No -Wound/Ulcer Outcome Not Healed Not Healed -Ulcer Cleansing Rinsed/ Rinsed/ Irrigated with Irrigated with Saline Saline -Foul Odor after Cleansing No No -Bioengineered Tissue No No -Bleeding Controlled with Pressure Pressure -Offloading No No -Treatment Response Procedure Procedure Tolerated Well Tolerated Well -Debridement - Subq, 1st 20sq cm Yes Yes Pain Scale: 0-10 Numeric Is Patient Pain Free? Yes Yes NATHALIE - Nurse 3 - General Ulcer D/C NN Start: 05/31/20 09:18 Freq: Status: Active Protocol: Activity Type Activity Date Activity User E-Sign Co-Sign Detail Recorded Client Recorded Date Recorded By Document 05/31/20 12:03 [email or web address] [id number] 05/31/20 12:05 [email or web address] 05/31/20 12:03 Wound Care Nurse 3 #2- Left lateral le -Ulcer Cleansing Rinsed/ Irrigated with Saline -Foul Odor after Cleansing No -Primary Dressing Applied Fibracol Plus 4x4 -Primary Dressing Covered/Secured with Dry Gauze -Fibracol Plus 4x4 1 Bilateral -Multi-Layered Wrap Application Multi-Layer Comp - Bilat ($ ) Pain Scale: 0-10 Numeric Is Patient Pain Free? Yes WC - Visit Discharge Discharge Condition Stable Ambulatory Status Ambulatory Transportation Private Auto Clinical Summary of Care Provided Yes Wound debrided: Left lower extremity (lateral) Type of Debridement: Excisional debridement Anesthesia Used: 4% Lidocaine Solution Depth: Down to and including healthy tissue, in the subcutaneous layer Percentage of wound debrided: 100 Instrument Used: 3mm curette Tissue Removed: Slough and devitalized tissue Severity: Fat Layer Exposed Amount of bleeding with debridement: Mild Bleeding Controlled with: Pressure Patient tolerated procedure well Assessment/Plan Active Problems Stasis dermatitis of both legs (Chronic) Obesity (BMI 30-39.9) (Chronic) Ulcer of left lower extremity with fat layer exposed (Chronic) Lymphedema (Chronic) Assessment: Nonhealing bilateral lower extremity ulcers, left greater than right. Significant left eschar to left leg ( lateral ). Poorly controlled diabetes mellitus. Chronic bilateral lower extremity edema. Plan: Debridement done as documented above, procedure was well-tolerated. Con tinue Fibrocol and Unna boots.. Change on Thursday, Thursday and then follow-up in the wound center on . Moisturize adequately. Optimal diabetes management strongly recommended. Strongly advised to elevate lower extremity when seated and in bed. Should get his lymphedema pumps soon. Increase protein intake, vitamin C and zinc. His questions were answered and he was advised to call with any further questions or concerns. Follow-up in 1 week. This note was generated with [employer]ation software. It may contain incorrect words, spelling, and punctuation that were not noted in checking the note before signing. [id number]: [id number] June subq tissue 20 sq cm/<
[2020-06-14 10:03] VITALS: BP 113/43; PULSE 81; RESP 16; TEMP 36.1; O2SAT 97; BMI 41.5
--- NOTE | 2020-06-14 12:32 | PCM.WC.PN ---
(1) Ulcer of left lower extremity with fat layer exposed Status: Chronic Code(s): L97.922 - Non-pressure chronic ulcer of unspecified part of left lower leg with fat layer exposed (2) Lymphedema Status: Chronic Code(s): I89.0 - Lymphedema, not elsewhere classified (3) Obesity (BMI 30-39.9) Status: Chronic Code(s): E66.9 - Obesity, unspecified (4) Stasis dermatitis of both legs Status: Chronic Code(s): I87.2 - Venous insufficiency (chronic) (peripheral) Type of Wound Date of Service: 06/14/20 Chief Complaint: Nonhealing bilateral leg ulcers History of Wound: Mr. Garcia is a 64-year-old who was referred to the wound center due to nonhealing bilateral leg ulcers. Had presented to the emergency room at [facility] on the 05 of January due to significant bilateral lower extremity pain and redness. Managed for bilateral leg cellulitis. Discharged on the . Ulcers have been managed at home by home health. Was on Omnicef at discharge. Still reports significant predominantly left lower extremity pain. Edema is persistent. History of diabetes mellitus type 2 which is not well controlled, fasting blood glucose this morning said to be 178. He denies chills, fever, nausea or vomiting. Progress of Wound: Improving ulcer. No new concerns at this time. Still significant edema - Physical Exam Vital Signs Temp Pulse Resp BP Pulse Ox 97.0 F L 81 16 113/43 L 97 06/14/20 10:03 06/14/20 10:03 06/14/20 10:03 06/14/20 10:03 06/14/20 10:03 General: Alert, Oriented x3, Cooperative, No apparent distress HEENT: Atraumatic, Normocephalic Oral: Moist Mucosa Neck: Supple Abdomen: Non Tender, Obese Extremities: No cyanosis, Edema Skin: Ulcer/ Wound Wound Measurements and Assessment WC - Nurse 1 - General Ulcer Measurement Start: 05/31/20 09:18 Freq: Status: Active Protocol: Activity Type Activity Date Activity User E-Sign Co-Sign Detail Recorded Client Recorded Date Recorded By Document 06/14/20 10:03 MS [id number] 06/14/20 10:16 MS 06/14/20 10:03 Wound Center Nurse 1 [Ulcer Assessment] #2- Left lateral le -Current Size (cm) - Length 3 -Current Size (cm) - Width 1 -Current Size (cm) - Depth 0.1 -Total Square Cm 3 -Photo Taken Yes -Exudate Amt Small -Wound Margin Distinct, Outline Attached -Granulation Amt None Present (0 %) -Slough/Fibrin Yes -Necrosis Amt Medium (34-66%) -Foul Odor after Cleansing No -Anesthetic Used 4% Lidocaine Solution [Edema Assessment] -Right Calf (cm) 51 -Right Ankle (cm) 33 -Left Calf (cm) 51 -Left Ankle (cm) 31 NATHALIE - Nurse 2 - General Ulcer CM Notes Start: 05/31/20 09:18 Freq: Status: Active Protocol: Activity Type Activity Date Activity User E-Sign Co-Sign Detail Recorded Client Recorded Date Recorded By Document 06/14/20 10:44 MW [id number] 06/14/20 10:49 MW 06/14/20 10:44 Wound Center Nurse 2 [Procedure/Treatment] #2- Left lateral le -Time 10:45 -Correct Patient Yes -Correct Side, Site, Position Yes -Correct Procedure Yes -Procedure Performed Yes -Type of Procedure Debridement -Clinical Debridement Subcutaneous -Tissue Removed Subcutaneous -Post Debridement (cm) - Length 3.0 -Post Debridement (cm) - Width 0.7 -Post Debridement (cm) - Depth 0.1 -Total Square (Post) (cm) 2.10 -Area of Debridement (cm) - Length 3.0 -Area of Debridement (cm) - Width 0.7 -Total Square (Area) (cm) 2.10 -Tunneling No -Undermining/Tunneling No -Circular Undermining No -Wound/Ulcer Outcome Not Healed -Ulcer Cleansing Rinsed/ Irrigated with Saline -Foul Odor after Cleansing No -Bioengineered Tissue No -Bleeding Controlled with Pressure -Offloading No -Treatment Response Procedure Tolerated Well -Debridement - Subq, 1st 20sq cm Yes [See Physician Procedure note for Specifics] Pain Scale: 0-10 Numeric [Pain] -Is Patient Pain Free? Yes NATHALIE - Nurse 3 - General Ulcer D/C NN Start: 05/31/20 09:18 Freq: Status: Active Protocol: Activity Type Activity Date Activity User E-Sign Co-Sign Detail Recorded Client Recorded Date Recorded By Document 06/14/20 11:16 DL [id number] 06/14/20 11:17 DL 06/14/20 11:16 Wound Care Nurse 3 [Wound Dressing] #2- Left lateral le -Ulcer Cleansing Wound Cleanser -Foul Odor after Cleansing No -Primary Dressing Applied Fibracol Plus 4x4 -Fibracol Plus 4x4 1 [Compression Applied] Bilateral -Multi-Layered Wrap Application Unna Boot - Bilateral ($) -Unna Boots (Bilat) ($) 2 [Post Procedure Tolerated] -Treatment Response Procedure Tolerated Well Pain Scale: 0-10 Numeric [Pain] -Is Patient Pain Free? Yes WC - Visit Discharge [Visit Discharge Information] -Discharge Condition Stable -Ambulatory Status Ambulatory -Transportation Private Auto Musculoskeletal: No Muscle Wasting Neurological: Cranial nerves II-XII grossly intact Psych/Mental Status: Normal Affect Debridement Note Post-Debridement Measurements/Treatment WC - Nurse 2 - General Ulcer CM Notes Start: 05/31/20 09:18 Freq: Status: Active Protocol: Activity Type Activity Date Activity User E-Sign Co-Sign Detail Recorded Client Recorded Date Recorded By Document 05/31/20 09:57 MW [id number] 05/31/20 10:00 MW Document 06/07/20 09:39 MW [id number] 06/07/20 09:43 MW Document 06/14/20 10:44 MW [id number] 06/14/20 10:49 MW 05/31/20 06/07/20 06/14/20 09:57 09:39 10:44 Wound Center Nurse 2 #2- Left lateral le -Time 09:57 09:39 10:45 -Correct Patient Yes Yes Yes -Correct Side, Site, Position Yes Yes Yes -Correct Procedure Yes Yes Yes -Procedure Performed Yes Yes Yes -Type of Procedure Debridement Debridement Debridement -Clinical Debridement Subcutaneous Subcutaneous Subcutaneous -Tissue Removed Subcutaneous Subcutaneous Subcutaneous -Post Debridement (cm) - Length 5.5 4.0 3.0 -Post Debridement (cm) - Width 2.0 1.6 0.7 -Post Debridement (cm) - Depth 0.1 0.1 0.1 -Total Square (Post) (cm) 11.00 6.40 2.10 -Area of Debridement (cm) - Length 5.5 4.0 3.0 -Area of Debridement (cm) - Width 2.0 1.6 0.7 -Total Square (Area) (cm) 11.00 6.40 2.10 -Tunneling No No No -Undermining/Tunneling No No No -Circular Undermining No No No -Wound/Ulcer Outcome Not Healed Not Healed Not Healed -Ulcer Cleansing Rinsed/ Rinsed/ Rinsed/ Irrigated with Irrigated with Irrigated with Saline Saline Saline -Foul Odor after Cleansing No No No -Bioengineered Tissue No No No -Bleeding Controlled with Pressure Pressure Pressure -Offloading No No No -Treatment Response Procedure Procedure Procedure Tolerated Well Tolerated Well Tolerated Well -Debridement - Subq, 1st 20sq cm Yes Yes Yes Pain Scale: 0-10 Numeric Is Patient Pain Free? Yes Yes Yes - Nurse 3 - General Ulcer D/C NN Start: 05/31/20 09:18 Freq: Status: Active Protocol: Activity Type Activity Date Activity User E-Sign Co-Sign Detail Recorded Client Recorded Date Recorded By Document 05/31/20 12:03 PL [id number] 05/31/20 12:05 PL Document 06/07/20 11:19 PL [id number] 06/07/20 11:21 PL Document 06/14/20 11:16 DL [id number] 06/14/20 11:17 DL 05/31/20 06/07/20 06/14/20 12:03 11:19 11:16 Wound Care Nurse 3 #2- Left lateral le -Ulcer Cleansing Rinsed/ Rinsed/ Wound Cleanser Irrigated with Irrigated with Saline Saline -Foul Odor after Cleansing No No No -Primary Dressing Applied Fibracol Plus Fibracol Plus Fibracol Plus 4x4 4x4 4x4 -Other Dressing Unna -Primary Dressing Covered/Secured with Dry Gauze Dry Gauze -Fibracol Plus 4x4 1 1 1 Bilateral -Multi-Layered Wrap Application Multi-Layer Unna Boot - Unna Boot - Comp - Bilat ($ Bilateral ($) Bilateral ($) ) -Unna Boots (Bilat) ($) 2 2 Treatment Response Procedure Tolerated Well Pain Scale: 0-10 Numeric Is Patient Pain Free? Yes Yes Yes - Visit Discharge Discharge Condition Stable Stable Stable Ambulatory Status Ambulatory Ambulatory Ambulatory Transportation Private Auto Private Auto Private Auto Clinical Summary of Care Provided Yes Yes Wound debrided: Left lower extremity ( Lateral ) Type of Debridement: Excisional debridement Anesthesia Used: 4% Lidocaine Solution Depth: Down to and including healthy tissue, in the subcutaneous layer Percentage of wound debrided: 100 Instrument Used: 3mm curette Tissue Removed: Slough and devitalized tissue Severity: Fat Layer Exposed Amount of bleeding with debridement: Mild Bleeding Controlled with: Pressure Patient tolerated procedure well Assessment/Plan Active Problems Stasis dermatitis of both legs (Chronic) Obesity (BMI 30-39.9) (Chronic) Ulcer of left lower extremity with fat layer exposed (Chronic) Lymphedema (Chronic) Assessment: Nonhealing bilateral lower extremity ulcers, left greater than right. Significant left eschar to left leg ( lateral ). Poorly controlled diabetes mellitus. Chronic bilateral lower extremity edema. Plan: Debridement done as documented above, procedure was well-tolerated. Continue Fibrocol and Unna boots.. Change on Thursday, Thursday and then follow-up in the wound center on . Moisturize adequately. Optimal diabetes management recommended. Strongly advised to elevate lower extremities when seated and in bed. Still has not recieved his lymphedema pumps. More documentation has been sent as requested. Prescription for circaids sent. Increase protein intake, vitamin C and zinc. His questions were answered and he was advised to call with any further questions or concerns. Follow-up in 1 week. This note was generated with [employer] dictation software. It may contain incorrect words, spelling, and punctuation that were not noted in checking the note before signing. [id number]: [id number] June subq tissue 20 sq cm/<
[2020-06-21 09:33] VITALS: BP 107/53; PULSE 68; TEMP 36; BMI 41.5
--- NOTE | 2020-06-21 10:40 | PN.PCM_ITS ---
(1) Ulcer of left lower extremity with fat layer exposed Status: Chronic Code(s): L97.922 - Non-pressure chronic ulcer of unspecified part of left lower leg with fat layer exposed (2) Lymphedema Status: Chronic Code(s): I89.0 - Lymphedema, not elsewhere classified (3) Obesity (BMI 30-39.9) Status: Chronic Code(s): E66.9 - Obesity, unspecified (4) Stasis dermatitis of both legs Status: Chronic Code(s): I87.2 - Venous insufficiency (chronic) (peripheral) Type of Wound Date of Service: 06/21/20 Chief Complaint: Nonhealing bilateral leg ulcers History of Wound: Mr. Garcia is a 64-year-old who was referred to the wound center due to nonhealing bilateral leg ulcers. Had presented to the emergency room at [facility] on the 05 of January due to significant bilateral lower extremity pain and redness. Managed for bilateral leg cellulitis. Discharged on the . Ulcers have been managed at home by home health. Was on Omnicef at discharge. Still reports significant predominantly left lower extremity pain. Edema is persistent. History of diabetes mellitus type 2 which is not well controlled, fasting blood glucose this morning said to be 178. He denies chills, fever, nausea or vomiting. Progress of Wound: Stable. No new concerns at this time. Still has significant edema. He states that his pump arrives on Thursday. - Physical Exam Vital Signs Temp Pulse Resp BP Pulse Ox 96.8 F L 68 16 107/53 L 97 06/21/20 09:33 06/21/20 09:33 06/14/20 10:03 06/21/20 09:33 06/14/20 10:03 General: Alert, Oriented x3, Cooperative, No apparent distress HEENT: Atraumatic, Normocephalic Oral: Moist Mucosa Neck: Supple Lungs: Normal air movement Abdomen: Non Tender, Obese Extremities: No cyanosis, Edema Skin: Ulcer/ Wound Wound Measurements and Assessment WC - Nurse 1 - General Ulcer Measurement Start: 05/31/20 09:18 Freq: Status: Active Protocol: Activity Type Activity Date Activity User E-Sign Co-Sign Detail Recorded Client Recorded Date Recorded By Document 06/21/20 09:33 RAÚL [id number] 06/21/20 09:43 KR 06/21/20 09:33 Wound Center Nurse 1 [Ulcer Assessment] #2- Left lateral le -Current Size (cm) - Length 4.8 -Current Size (cm) - Width 1.5 -Current Size (cm) - Depth 0.1 -Total Square Cm 7.20 -Exudate Amt Medium -Exudate Type Serosanguineous -Wound Margin Distinct, Outline Attached -Granulation Amt Medium (34-66%) -Granulation Quality Red -Necrosis Amt Medium (34-66%) -Necrotic Tissue Type Adherent Slough -Texture (Reina-wound Skin Appearance) Assessed, Scarring -Moisture (Reina-wound Skin Appearance Assessed,Dry/ ) Scaly -Color (Reina-wound Skin Appearance) No Abnormality, Assessed -Temperature (Reina-wound Skin No Abnormality Appearance) (Pt Warm) -Tenderness on Palpation (Reina-wound No Skin Appearance) -Ulcer Cleansing Rinsed/ Irrigated with Saline -Foul Odor after Cleansing No -Anesthetic Used 4% Lidocaine Solution [Edema Assessment] -Right Calf (cm) 47 -Right Ankle (cm) 36 -Left Calf (cm) 45 -Left Ankle (cm) 43 WC - Nurse 2 - General Ulcer CM Notes Start: 05/31/20 09:18 Freq: Status: Active Protocol: Activity Type Activity Date Activity User E-Sign Co-Sign Detail Recorded Client Recorded Date Recorded By Document 06/21/20 10:00 MW [id number] 06/21/20 10:05 MW 06/21/20 10:00 Wound Center Nurse 2 [Procedure/Treatment] #2- Left lateral le -Time 10:02 -Correct Patient Yes -Correct Side, Site, Position Yes -Correct Procedure Yes -Procedure Performed Yes -Type of Procedure Debridement -Clinical Debridement Subcutaneous -Tissue Removed Subcutaneous -Post Debridement (cm) - Length 5.0 -Post Debridement (cm) - Width 1.5 -Post Debridement (cm) - Depth 0.1 -Total Square (Post) (cm) 7.50 -Area of Debridement (cm) - Length 5.0 -Area of Debridement (cm) - Width 1.5 -Total Square (Area) (cm) 7.50 -Tunneling No -Undermining/Tunneling No -Circular Undermining No -Wound/Ulcer Outcome Not Healed -Ulcer Cleansing Rinsed/ Irrigated with Saline -Foul Odor after Cleansing No -Bioengineered Tissue No -Bleeding Controlled with Pressure -Offloading No -Treatment Response Procedure Tolerated Well -Debridement - Subq, 1st 20sq cm Yes [See Physician Procedure note for Specifics] Pain Scale: 0-10 Numeric [Pain] -Is Patient Pain Free? Yes - Nurse 3 - General Ulcer D/C NN Start: 05/31/20 09:18 Freq: Status: Active Protocol: Activity Type Activity Date Activity User E-Sign Co-Sign Detail Recorded Client Recorded Date Recorded By Document 06/21/20 10:10 DL [id number] 06/21/20 10:11 DL 06/21/20 10:10 Wound Care Nurse 3 [Wound Dressing] #2- Left lateral le -Ulcer Cleansing Rinsed/ Irrigated with Saline -Primary Dressing Covered/Secured Dry Gauze, with Secured with Tape [Compression Applied] Bilateral -Multi-Layered Wrap Application Multi-Layer Comp - Bilat ($ ) Pain Scale: 0-10 Numeric [Pain] -Is Patient Pain Free? Yes - Visit Discharge [Visit Discharge Information] -Discharge Condition Stable -Ambulatory Status Ambulatory -Transportation Private Auto Musculoskeletal: No Muscle Wasting Neurological: Cranial nerves II-XII grossly intact Psych/Mental Status: Normal Affect Debridement Note Post-Debridement Measurements/Treatment WC - Nurse 2 - General Ulcer CM Notes Start: 05/31/20 09:18 Freq: Status: Active Protocol: Activity Type Activity Date Activity User E-Sign Co-Sign Detail Recorded Client Recorded Date Recorded By Document 05/31/20 09:57 MW [id number] 05/31/20 10:00 MW Document 06/07/20 09:39 MW [id number] 06/07/20 09:43 MW Document 06/14/20 10:44 MW [id number] 06/14/20 10:49 MW Document 06/21/20 10:00 MW [id number] 06/21/20 10:05 MW 05/31/20 06/07/20 06/14/20 09:57 09:39 10:44 Wound Center Nurse 2 #2- Left lateral le -Time 09:57 09:39 10:45 -Correct Patient Yes Yes Yes -Correct Side, Site, Position Yes Yes Yes -Correct Procedure Yes Yes Yes -Procedure Performed Yes Yes Yes -Type of Procedure Debridement Debridement Debridement -Clinical Debridement Subcutaneous Subcutaneous Subcutaneous -Tissue Removed Subcutaneous Subcutaneous Subcutaneous -Post Debridement (cm) - Length 5.5 4.0 3.0 -Post Debridement (cm) - Width 2.0 1.6 0.7 -Post Debridement (cm) - Depth 0.1 0.1 0.1 -Total Square (Post) (cm) 11.00 6.40 2.10 -Area of Debridement (cm) - Length 5.5 4.0 3.0 -Area of Debridement (cm) - Width 2.0 1.6 0.7 -Total Square (Area) (cm) 11.00 6.40 2.10 -Tunneling No No No -Undermining/Tunneling No No No -Circular Undermining No No No -Wound/Ulcer Outcome Not Healed Not Healed Not Healed -Ulcer Cleansing Rinsed/ Rinsed/ Rinsed/ Irrigated with Irrigated with Irrigated with Saline Saline Saline -Foul Odor after Cleansing No No No -Bioengineered Tissue No No No -Bleeding Controlled with Pressure Pressure Pressure -Offloading No No No -Treatment Response Procedure Procedure Procedure Tolerated Well Tolerated Well Tolerated Well -Debridement - Subq, 1st 20sq cm Yes Yes Yes Pain Scale: 0-10 Numeric Is Patient Pain Free? Yes Yes Yes 06/21/20 10:00 Wound Center Nurse 2 #2- Left lateral le -Time 10:02 -Correct Patient Yes -Correct Side, Site, Position Yes -Correct Procedure Yes -Procedure Performed Yes -Type of Procedure Debridement -Clinical Debridement Subcutaneous -Tissue Removed Subcutaneous -Post Debridement (cm) - Length 5.0 -Post Debridement (cm) - Width 1.5 -Post Debridement (cm) - Depth 0.1 -Total Square (Post) (cm) 7.50 -Area of Debridement (cm) - Length 5.0 -Area of Debridement (cm) - Width 1.5 -Total Square (Area) (cm) 7.50 -Tunneling No -Undermining/Tunneling No -Circular Undermining No -Wound/Ulcer Outcome Not Healed -Ulcer Cleansing Rinsed/ Irrigated with Saline -Foul Odor after Cleansing No -Bioengineered Tissue No -Bleeding Controlled with Pressure -Offloading No -Treatment Response Procedure Tolerated Well -Debridement - Subq, 1st 20sq cm Yes Pain Scale: 0-10 Numeric Is Patient Pain Free? Yes WC - Nurse 3 - General Ulcer D/C NN Start: 05/31/20 09:18 Freq: Status: Active Protocol: Activity Type Activity Date Activity User E-Sign Co-Sign Detail Recorded Client Recorded Date Recorded By Document 05/31/20 12:03 PL [id number] 05/31/20 12:05 PL Document 06/07/20 11:19 PL [id number] 06/07/20 11:21 PL Document 06/14/20 11:16 DL [id number] 06/14/20 11:17 DL Document 06/21/20 10:10 DL [id number] 06/21/20 10:11 DL 05/31/20 06/07/20 06/14/20 12:03 11:19 11:16 Wound Care Nurse 3 #2- Left lateral le -Ulcer Cleansing Rinsed/ Rinsed/ Wound Cleanser Irrigated with Irrigated with Saline Saline -Foul Odor after Cleansing No No No -Primary Dressing Applied Fibracol Plus Fibracol Plus Fibracol Plus 4x4 4x4 4x4 -Other Dressing Unna -Primary Dressing Covered/Secured with Dry Gauze Dry Gauze -Fibracol Plus 4x4 1 1 1 Bilateral -Multi-Layered Wrap Application Multi-Layer Unna Boot - Unna Boot - Comp - Bilat ($ Bilateral ($) Bilateral ($) ) -Unna Boots (Bilat) ($) 2 2 Treatment Response Procedure Tolerated Well Pain Scale: 0-10 Numeric Is Patient Pain Free? Yes Yes Yes WC - Visit Discharge Discharge Condition Stable Stable Stable Ambulatory Status Ambulatory Ambulatory Ambulatory Transportation Private Auto [employer] Clinical Summary of Care Provided Yes Yes 06/21/20 10:10 Wound Care Nurse 3 #2- Left lateral le -Ulcer Cleansing Rinsed/ Irrigated with Saline -Foul Odor after Cleansing -Primary Dressing Applied -Other Dressing -Primary Dressing Covered/Secured with Dry Gauze, Secured with Tape -Fibracol Plus 4x4 Bilateral -Multi-Layered Wrap Application Multi-Layer Comp - Bilat ($ ) -Unna Boots (Bilat) ($) Treatment Response Pain Scale: 0-10 Numeric Is Patient Pain Free? Yes WC - Visit Discharge Discharge Condition Stable Ambulatory Status Ambulatory Transportation [facility] [employer] Clinical Summary of Care Provided Wound debrided: Left lower extremity Type of Debridement: Excisional debridement Anesthesia Used: 4% Lidocaine Solution Depth: Down to and including healthy tissue, in the subcutaneous layer Percentage of wound debrided: 100 Instrument Used: 3mm curette Tissue Removed: Slough and devitalized tissue Severity: Fat Layer Exposed Amount of bleeding with debridement: Mild Bleeding Controlled with: Pressure Patient tolerated procedure well Assessment/Plan Active Problems Stasis dermatitis of both legs (Chronic) Obesity (BMI 30-39.9) (Chronic) Ulcer of left lower extremity with fat layer exposed (Chronic) Lymphedema (Chronic) Assessment: Nonhealing bilateral lower extremity ulcers, left greater than right. Significant left eschar to left leg ( lateral ). Poorly controlled diabetes mellitus. Chronic bilateral lower extremity edema. Plan: Debridement done as documented above, procedure was well-tolerated. Continue Fibrocol, switch to 3M wraps for edema management. Change on Thursday, Thursday and then follow-up in the wound center on . Moisturize adequately. Optimal diabetes management recommended. Strongly advised to elevate lower extremities when seated and in bed. As above, will get his pumps on Thursday. Has gotten his Circaids. Increase protein intake, vitamin C and zinc. His questions were answered and he was advised to call with any further questions or concerns. Follow-up in 1 week. This note was generated with [employer] dictation software. It may contain incorrect words, spelling, and punctuation that were not noted in checking the note before signing. [id number]: [id number] June subq tissue 20 sq cm/<
== END 2020-06-24 23:59 ==
LOC: WC 09:30
PROVIDERS: PCP Family Medicine; Referring Provider Family Medicine; Visit Provider Internal Medicine
DX: E11.622 Type 2 diabetes mellitus with other skin ulcer (principal); L97.822 Non-pressure chronic ulcer of other part of left lower leg with fat layer exposed; L97.819 Non-pressure chronic ulcer of other part of right lower leg with unspecified severity; E11.65 Type 2 diabetes mellitus with hyperglycemia; R60.0 Localized edema
CPT/HCPCS: 11042; 29580; 29581

== ENCOUNTER 2020-07-19 08:30 | Outpatient (RCR) | payer MEDICARE, SELFPAY ==
[2020-06-25 00:14] VITALS: BP 107/53; PULSE 68; RESP 16; TEMP 36; O2SAT 97
[2020-06-28 10:10] VITALS: BP 120/60; PULSE 78; RESP 18; TEMP 36.1; BMI 41.5
--- NOTE | 2020-06-28 12:42 | PCM.WC.PN ---
(1) Ulcer of left lower extremity with fat layer exposed Status: Chronic Code(s): L97.922 - Non-pressure chronic ulcer of unspecified part of left lower leg with fat layer exposed (2) Lymphedema Status: Chronic Code(s): I89.0 - Lymphedema, not elsewhere classified (3) Obesity (BMI 30-39.9) Status: Chronic Code(s): E66.9 - Obesity, unspecified (4) Type 2 diabetes mellitus Status: Chronic Qualifiers: Code(s): E11.9 - Type 2 diabetes mellitus without complications Type of Wound Date of Service: 06/28/20 Chief Complaint: Nonhealing bilateral leg ulcers History of Wound: Mr. Garcia is a 64-year-old who was referred to the wound center due to nonhealing bilateral leg ulcers. Had presented to the emergency room at [facility] on the 05 of January due to significant bilateral lower extremity pain and redness. Managed for bilateral leg cellulitis. Discharged on the . Ulcers have been managed at home by home health. Was on Omnicef at discharge. Still reports significant predominantly left lower extremity pain. Edema is persistent. History of diabetes mellitus type 2 which is not well controlled, fasting blood glucose this morning said to be 178. He denies chills, fever, nausea or vomiting. Progress of Wound: No new concerns or significant change. Has started use of his lymphedema pump. - Physical Exam Vital Signs Temp Pulse Resp BP Pulse Ox 97.0 F L 78 18 120/60 97 06/28/20 10:10 06/28/20 10:10 06/28/20 10:10 06/28/20 10:10 06/25/20 00:14 General: Alert, Oriented x3, Cooperative, No apparent distress HEENT: Atraumatic, Normocephalic Oral: Moist Mucosa Neck: Supple Lungs: Normal air movement Abdomen: Non Tender, Obese Extremities: No cyanosis, Edema Skin: Ulcer/ Wound Wound Measurements and Assessment WC - Nurse 1 - General Ulcer Measurement Start: 06/28/20 09:59 Freq: Status: Active Protocol: Activity Type Activity Date Activity User E-Sign Co-Sign Detail Recorded Client Recorded Date Recorded By Document 06/28/20 10:10 WI [id number] 06/28/20 10:14 WI 06/28/20 10:10 Wound Center Nurse 1 [Ulcer Assessment] #2- Left lateral le -Current Size (cm) - Length 0.1 -Current Size (cm) - Width 0.1 -Current Size (cm) - Depth 0.1 -Total Square Cm 0.01 -Tunneling No -Undermining/Tunneling No -Circular Undermining No -Exudate Amt Large -Exudate Type Serous -Wound Margin Thickened -Granulation Amt Large (67-100%) -Granulation Quality Pale,Steger,Red -Slough/Fibrin Yes -Necrosis Amt None Present (0 %) -Texture (Reina-wound Skin Appearance) Assessed, Localized Edema -Moisture (Reina-wound Skin Appearance Assessed, ) Maceration, Weeping -Color (Reina-wound Skin Appearance) Assessed, Erythema, Hemosiderin Staining -Temperature (Reina-wound Skin No Abnormality Appearance) (Pt Warm) -Tenderness on Palpation (Reina-wound No Skin Appearance) -Ulcer Cleansing Wound Cleanser -Foul Odor after Cleansing No -Anesthetic Used 4% Lidocaine Solution [Edema Assessment] -Right Calf (cm) 47 -Right Ankle (cm) 33 -Left Calf (cm) 19 -Left Ankle (cm) 31 WC - Nurse 2 - General Ulcer CM Notes Start: 06/28/20 09:59 Freq: Status: Active Protocol: Activity Type Activity Date Activity User E-Sign Co-Sign Detail Recorded Client Recorded Date Recorded By Document 06/28/20 10:24 MW [id number] 06/28/20 10:27 MW 06/28/20 10:24 Wound Center Nurse 2 [Procedure/Treatment] #2- Left lateral le -Time 10:25 -Correct Patient Yes -Correct Side, Site, Position Yes -Correct Procedure Yes -Procedure Performed Yes -Type of Procedure Debridement -Clinical Debridement Subcutaneous -Tissue Removed Subcutaneous -Post Debridement (cm) - Length 5.0 -Post Debridement (cm) - Width 1.5 -Post Debridement (cm) - Depth 0.1 -Total Square (Post) (cm) 7.50 -Area of Debridement (cm) - Length 5.0 -Area of Debridement (cm) - Width 1.5 -Total Square (Area) (cm) 7.50 -Tunneling No -Undermining/Tunneling No -Circular Undermining No -Wound/Ulcer Outcome Not Healed -Ulcer Cleansing Rinsed/ Irrigated with Saline -Foul Odor after Cleansing No -Bioengineered Tissue No -Bleeding Controlled with Pressure -Offloading No -Treatment Response Procedure Tolerated Well -Debridement - Subq, 1st 20sq cm Yes [See Physician Procedure note for Specifics] Pain Scale: 0-10 Numeric [Pain] -Is Patient Pain Free? Yes - Nurse 3 - General Ulcer D/C NN Start: 06/28/20 09:59 Freq: Status: Active Protocol: Activity Type Activity Date Activity User E-Sign Co-Sign Detail Recorded Client Recorded Date Recorded By Document 06/28/20 10:42 DL [id number] 06/28/20 10:43 DL 06/28/20 10:42 Wound Care Nurse 3 [Wound Dressing] #2- Left lateral le -Ulcer Cleansing Rinsed/ Irrigated with Saline -Foul Odor after Cleansing No -Primary Dressing Applied Promogran -Promogran 1 [Compression Applied] Left -Multi-Layered Wrap Application Unna Boot - Bilateral ($) -Unna Boots (Bilat) ($) 2 [Post Procedure Tolerated] -Treatment Response Procedure Tolerated Well Pain Scale: 0-10 Numeric [Pain] -Is Patient Pain Free? Yes - Visit Discharge [Visit Discharge Information] -Discharge Condition Stable -Ambulatory Status Ambulatory -Transportation Private Auto Musculoskeletal: No Muscle Wasting Neurological: Cranial nerves II-XII grossly intact Debridement Note Post-Debridement Measurements/Treatment WC - Nurse 2 - General Ulcer CM Notes Start: 06/28/20 09:59 Freq: Status: Active Protocol: Activity Type Activity Date Activity User E-Sign Co-Sign Detail Recorded Client Recorded Date Recorded By Document 06/28/20 10:24 MW [id number] 06/28/20 10:27 MW 06/28/20 10:24 Wound Center Nurse 2 #2- Left lateral le -Time 10:25 -Correct Patient Yes -Correct Side, Site, Position Yes -Correct Procedure Yes -Procedure Performed Yes -Type of Procedure Debridement -Clinical Debridement Subcutaneous -Tissue Removed Subcutaneous -Post Debridement (cm) - Length 5.0 -Post Debridement (cm) - Width 1.5 -Post Debridement (cm) - Depth 0.1 -Total Square (Post) (cm) 7.50 -Area of Debridement (cm) - Length 5.0 -Area of Debridement (cm) - Width 1.5 -Total Square (Area) (cm) 7.50 -Tunneling No -Undermining/Tunneling No -Circular Undermining No -Wound/Ulcer Outcome Not Healed -Ulcer Cleansing Rinsed/ Irrigated with Saline -Foul Odor after Cleansing No -Bioengineered Tissue No -Bleeding Controlled with Pressure -Offloading No -Treatment Response Procedure Tolerated Well -Debridement - Subq, 1st 20sq cm Yes Pain Scale: 0-10 Numeric Is Patient Pain Free? Yes WC - Nurse 3 - General Ulcer D/C NN Start: 06/28/20 09:59 Freq: Status: Active Protocol: Activity Type Activity Date Activity User E-Sign Co-Sign Detail Recorded Client Recorded Date Recorded By Document 06/28/20 10:42 DL [id number] 06/28/20 10:43 DL 06/28/20 10:42 Wound Care Nurse 3 #2- Left lateral le -Ulcer Cleansing Rinsed/ Irrigated with Saline -Foul Odor after Cleansing No -Primary Dressing Applied Promogran -Promogran 1 Left -Multi-Layered Wrap Application Unna Boot - Bilateral ($) -Unna Boots (Bilat) ($) 2 Treatment Response Procedure Tolerated Well Pain Scale: 0-10 Numeric Is Patient Pain Free? Yes WC - Visit Discharge Discharge Condition Stable Ambulatory Status Ambulatory Transportation Private Auto Wound debrided: Left lower extremity lateral Anesthesia Used: 4% Lidocaine Solution Depth: Down to and including healthy tissue, in the subcutaneous layer Percentage of wound debrided: 100 Instrument Used: 5mm curette Tissue Removed: Slough and devitalized tissue Severity: Fat Layer Exposed Amount of bleeding with debridement: Mild Bleeding Controlled with: Pressure Patient tolerated procedure well Assessment/Plan Active Problems Obesity (BMI 30-39.9) (Chronic) Ulcer of left lower extremity with fat layer exposed (Chronic) Type 2 diabetes mellitus (Chronic) Lymphedema (Chronic) Assessment: Nonhealing bilateral lower extremity ulcers, left greater than right. Significant left eschar to left leg ( lateral ). Poorly controlled diabetes mellitus. Chronic bilateral lower extremity edema. Plan: Debridement done as documented above, procedure was well-tolerated. Switch to Pomogran. No significant change in ulcer. Unna for edema management. Change on Thursday, Thursday and then follow-up in the wound center on . Moisturize adequately. Optimal diabetes management recommended. Strongly advised to elevate lower extremities when seated and in bed. Advised to use his pumps everyday (2 -3 x daily )Has gotten his Circaids. Increase protein intake, vitamin C and zinc. His questions were answered and he was advised to call with any further questions or concerns. Follow-up in 1 week. This note was generated with [employer] software. It may contain incorrect words, spelling, and punctuation that were not noted in checking the note before signing. [id number]: [id number] June subq tissue 20 sq cm/<
[2020-07-05 13:43] VITALS: BP 122/59; PULSE 94; RESP 18; TEMP 37.3; BMI 41.5
[2020-07-05 14:19] VITALS: BP 126/70
--- NOTE | 2020-07-05 16:45 | PCM.WC.PN ---
(1) Ulcer of left lower extremity with fat layer exposed Status: Chronic Code(s): L97.922 - Non-pressure chronic ulcer of unspecified part of left lower leg with fat layer exposed (2) Lymphedema Status: Chronic Code(s): I89.0 - Lymphedema, not elsewhere classified (3) Obesity (BMI 30-39.9) Status: Chronic Code(s): E66.9 - Obesity, unspecified (4) Type 2 diabetes mellitus Status: Chronic Qualifiers: Code(s): E11.9 - Type 2 diabetes mellitus without complications (5) Bilateral lower extremity edema Status: Chronic Code(s): R60.0 - Localized edema (6) CKD (chronic kidney disease) stage 3, GFR 30-59 ml/min Status: Chronic Qualifiers: Chronic kidney disease stage 3 subtype: unspecified whether 3a or 3b Qualified Code(s): N18.30 - Chronic kidney disease, stage 3 unspecified Code(s): N18.3 - Chronic kidney disease, stage 3 (moderate) (7) Morbid obesity Status: Chronic Code(s): E66.01 - Morbid (severe) obesity due to excess calories (8) Stasis dermatitis of both legs Status: Chronic Code(s): I87.2 - Venous insufficiency (chronic) (peripheral) (9) Systolic CHF, chronic Status: Chronic Code(s): I50.22 - Chronic systolic (congestive) heart failure Type of Wound Date of Service: 07/05/20 Chief Complaint: Nonhealing bilateral leg ulcers History of Wound: Mr. Garcia is a 64-year-old who was referred to the wound center due to nonhealing bilateral leg ulcers. Had presented to the emergency room at [facility] on the 05 of January due to significant bilateral lower extremity pain and redness. Managed for bilateral leg cellulitis. Discharged on the . Ulcers have been managed at home by home health. Was on Omnicef at discharge. Still reports significant predominantly left lower extremity pain. Edema is persistent. History of diabetes mellitus type 2 which is not well controlled, fasting blood glucose this morning said to be 178. He denies chills, fever, nausea or vomiting. Progress of Wound: Courtesy visit for Dr. Vargas-No new concerns or significant change.Ulcer size improving. Has started use of his lymphedema pump. - Physical Exam Vital Signs Temp Pulse Resp BP Pulse Ox 99.1 F 94 18 126/70 H 97 07/05/20 13:43 07/05/20 13:43 07/05/20 13:43 07/05/20 14:19 06/25/20 00:14 General: Alert, Oriented x3, Cooperative, No apparent distress HEENT: Atraumatic Oral: Moist Mucosa Lungs: Clear to auscultation, Normal air movement Cardiovascular: Regular rate Abdomen: Soft, Non Tender Extremities: No clubbing, No cyanosis, Edema - Chronic bilateral lymphedema present with chronic venous changes Skin: Ulcer/ Wound - See nursing documentation, slough and devitalized tissue present, no signs of infection at this time Wound Measurements and Assessment WC - Nurse 1 - General Ulcer Measurement Start: 06/28/20 09:59 Freq: Status: Active Protocol: Activity Type Activity Date Activity User E-Sign Co-Sign Detail Recorded Client Recorded Date Recorded By Document 07/05/20 13:43 RB [id number] 07/05/20 13:56 RB 07/05/20 13:43 Wound Center Nurse 1 [Ulcer Assessment] #2- Left lateral le -Combined with other wound No -Current Size (cm) - Length 3.5 -Current Size (cm) - Width 1.5 -Current Size (cm) - Depth 0.1 -Total Square Cm 5.25 -Tunneling No -Undermining/Tunneling No -Circular Undermining No -Exudate Amt Medium -Exudate Type Serosanguineous -Wound Margin Flat & Intact -Granulation Amt Small (1-33%) -Granulation Quality Francis -Slough/Fibrin Yes -Necrosis Amt Large (67-100%) -Necrotic Tissue Type Adherent Slough -Structure Exposed N/A -Texture (Reina-wound Skin Appearance) Localized Edema -Moisture (Reina-wound Skin Appearance Weeping ) -Color (Reina-wound Skin Appearance) Erythema -Temperature (Reina-wound Skin No Abnormality Appearance) (Pt Warm) -Tenderness on Palpation (Reina-wound No Skin Appearance) -Ulcer Cleansing Wound Cleanser -Foul Odor after Cleansing No -Anesthetic Used 4% Lidocaine Solution [Edema Assessment] -Lower Limb Edema Present Yes -Right Calf (cm) 48 -Right Ankle (cm) 33.5 -Left Calf (cm) 48.5 -Left Ankle (cm) 30 WC - Nurse 2 - General Ulcer CM Notes Start: 06/28/20 09:59 Freq: Status: Active Protocol: Activity Type Activity Date Activity User E-Sign Co-Sign Detail Recorded Client Recorded Date Recorded By Document 07/05/20 14:11 MW [id number] 07/05/20 14:12 MW 07/05/20 14:11 Wound Center Nurse 2 [Procedure/Treatment] #2- Left lateral le -Time 14:11 -Correct Patient Yes -Correct Side, Site, Position Yes -Correct Procedure Yes -Procedure Performed Yes -Type of Procedure Debridement -Clinical Debridement Subcutaneous -Tissue Removed Subcutaneous -Post Debridement (cm) - Length 3.2 -Post Debridement (cm) - Width 1.5 -Post Debridement (cm) - Depth 0.1 -Total Square (Post) (cm) 4.80 -Area of Debridement (cm) - Length 3.2 -Area of Debridement (cm) - Width 1 -Total Square (Area) (cm) 3.2 -Tunneling No -Undermining/Tunneling No -Circular Undermining No -Wound/Ulcer Outcome Not Healed -Ulcer Cleansing Rinsed/ Irrigated with Saline -Bioengineered Tissue No -Bleeding Controlled with Pressure -Offloading No -Debridement - Subq, 1st 20sq cm Yes [See Physician Procedure note for Specifics] Pain Scale: 0-10 Numeric [Pain] -Is Patient Pain Free? Yes - Nurse 3 - General Ulcer D/C NN Start: 06/28/20 09:59 Freq: Status: Active Protocol: Activity Type Activity Date Activity User E-Sign Co-Sign Detail Recorded Client Recorded Date Recorded By Document 07/05/20 14:19 RB [id number] 07/05/20 14:20 RB 07/05/20 14:19 Wound Care Nurse 3 [Wound Dressing] #2- Left lateral le -Primary Dressing Applied Promogran -Primary Dressing Covered/Secured Dry Gauze & with Roll Gauze -Promogran 1 [Compression Applied] Left -Multi-Layered Wrap Application Unna Boot - Bilateral ($) -Unna Boots (Bilat) ($) 2 Vital Signs [Blood Pressure] -Blood Pressure (90/60-120/80) 126/70 H -Blood Pressure Mean (mm Hg) 88 -Source Manual -Position Sitting -Blood Pressure Location Left Arm Pain Scale: 0-10 Numeric [Pain] -Is Patient Pain Free? Yes - Visit Discharge [Visit Discharge Information] -Discharge Condition Stable -Ambulatory Status Ambulatory -Transportation Private Auto -Medication Reconcilliation completed No & provided to patient/care provider -Clinical Summary of Care Provided Yes Neurological: Neuro grossly intact Psych/Mental Status: Normal Affect, Alert and oriented to time, place, person, mood and affect Debridement Note Post-Debridement Measurements/Treatment - Nurse 2 - General Ulcer CM Notes Start: 06/28/20 09:59 Freq: Status: Active Protocol: Activity Type Activity Date Activity User E-Sign Co-Sign Detail Recorded Client Recorded Date Recorded By Document 06/28/20 10:24 MW [id number] 06/28/20 10:27 MW Document 07/05/20 14:11 MW [id number] 07/05/20 14:12 MW 06/28/20 07/05/20 10:24 14:11 Wound Center Nurse 2 #2- Left lateral le -Time 10:25 14:11 -Correct Patient Yes Yes -Correct Side, Site, Position Yes Yes -Correct Procedure Yes Yes -Procedure Performed Yes Yes -Type of Procedure Debridement Debridement -Clinical Debridement Subcutaneous Subcutaneous -Tissue Removed Subcutaneous Subcutaneous -Post Debridement (cm) - Length 5.0 3.2 -Post Debridement (cm) - Width 1.5 1.5 -Post Debridement (cm) - Depth 0.1 0.1 -Total Square (Post) (cm) 7.50 4.80 -Area of Debridement (cm) - Length 5.0 3.2 -Area of Debridement (cm) - Width 1.5 1 -Total Square (Area) (cm) 7.50 3.2 -Tunneling No No -Undermining/Tunneling No No -Circular Undermining No No -Wound/Ulcer Outcome Not Healed Not Healed -Ulcer Cleansing Rinsed/ Rinsed/ Irrigated with Irrigated with Saline Saline -Foul Odor after Cleansing No -Bioengineered Tissue No No -Bleeding Controlled with Pressure Pressure -Offloading No No -Treatment Response Procedure Tolerated Well -Debridement - Subq, 1st 20sq cm Yes Yes Pain Scale: 0-10 Numeric Is Patient Pain Free? Yes Yes - Nurse 3 - General Ulcer D/C NN Start: 06/28/20 09:59 Freq: Status: Active Protocol: Activity Type Activity Date Activity User E-Sign Co-Sign Detail Recorded Client Recorded Date Recorded By Document 06/28/20 10:42 DL [id number] 06/28/20 10:43 DL Document 07/05/20 14:19 RB [id number] 07/05/20 14:20 RB 06/28/20 07/05/20 10:42 14:19 Wound Care Nurse 3 #2- Left lateral le -Ulcer Cleansing Rinsed/ Irrigated with Saline -Foul Odor after Cleansing No -Primary Dressing Applied Promogran Promogran -Primary Dressing Covered/Secured with Dry Gauze & Roll Gauze -Promogran 1 1 Left -Multi-Layered Wrap Application Unna Boot - Unna Boot - Bilateral ($) Bilateral ($) -Unna Boots (Bilat) ($) 2 2 Treatment Response Procedure Tolerated Well Vital Signs Blood Pressure (90/60-120/80) 126/70 H Blood Pressure Mean (mm Hg) 88 Source Manual Position Sitting Blood Pressure Location Left Arm Pain Scale: 0-10 Numeric Is Patient Pain Free? Yes Yes WC - Visit Discharge Discharge Condition Stable Stable Ambulatory Status Ambulatory Ambulatory Transportation Private Auto Private Auto Medication Reconcilliation completed & No provided to patient/care provider Clinical Summary of Care Provided Yes Wound debrided: Left venous leg ulcer Laterality: Left Type of Debridement: Excisional debridement Anesthesia Used: 5% Lidocaine Gel Depth: in the subcutaneous layer Percentage of wound debrided: 100 Instrument Used: 5mm curette Tissue Removed: Slough and devitalized tissue Severity: Fat Layer Exposed Amount of bleeding with debridement: Mild Bleeding Controlled with: Pressure Patient tolerated procedure well Assessment/Plan Active Problems Obesity (BMI 30-39.9) (Chronic) Ulcer of left lower extremity with fat layer exposed (Chronic) Type 2 diabetes mellitus (Chronic) Lymphedema (Chronic) Assessment: Nonhealing bilateral lower extremity ulcers, left greater than right. Significant left eschar to left leg ( lateral ). Poorly controlled diabetes mellitus. Chronic bilateral lower extremity edema. Plan: Debridement done as documented above, procedure was well-tolerated. Continue with Promogran. [place] for edema management. Change on Thursday, Thursday and then follow-up in the wound center on . Moisturize adequately. Optimal diabetes management recommended. Strongly advised to elevate lower extremities when seated and in bed. Advised to use his pumps everyday (2 -3 x daily )Has gotten his Circaids. Increase protein intake, vitamin C and zinc. His questions were answered and he was advised to call with any further questions or concerns. Follow-up in 1 week. This note was generated with [employer] software. It may contain incorrect words, spelling, and punctuation that were not noted in checking the note before signing. [id number]: [id number] June subq tissue 20 sq cm/<
[2020-07-12 10:18] VITALS: BP 106/46; PULSE 84; RESP 22; TEMP 37; BMI 41.5
--- NOTE | 2020-07-12 11:43 | PCM.WC.PN ---
(1) Ulcer of left lower extremity with fat layer exposed Status: Chronic Code(s): L97.922 - Non-pressure chronic ulcer of unspecified part of left lower leg with fat layer exposed (2) Lymphedema Status: Chronic Code(s): I89.0 - Lymphedema, not elsewhere classified (3) Obesity (BMI 30-39.9) Status: Chronic Code(s): E66.9 - Obesity, unspecified (4) Type 2 diabetes mellitus Status: Chronic Qualifiers: Code(s): E11.9 - Type 2 diabetes mellitus without complications Type of Wound Date of Service: 07/12/20 Chief Complaint: Nonhealing bilateral leg ulcers History of Wound: Mr. Garcia is a 64-year-old who was referred to the wound center due to nonhealing bilateral leg ulcers. Had presented to the emergency room at [facility] on the 05 of January due to significant bilateral lower extremity pain and redness. Managed for bilateral leg cellulitis. Discharged on the . Ulcers have been managed at home by home health. Was on Omnicef at discharge. Still reports significant predominantly left lower extremity pain. Edema is persistent. History of diabetes mellitus type 2 which is not well controlled, fasting blood glucose this morning said to be 178. He denies chills, fever, nausea or vomiting. Progress of Wound: No new concerns or significant change. Ulcer size improving. Has started use of his lymphedema pump. - Physical Exam Vital Signs Temp Pulse Resp BP Pulse Ox 98.6 F 84 22 H 106/46 L 97 07/12/20 10:18 07/12/20 10:18 07/12/20 10:18 07/12/20 10:18 06/25/20 00:14 General: Alert, Oriented x3, Cooperative, No apparent distress HEENT: Atraumatic, Normocephalic Oral: Moist Mucosa Abdomen: Obese Extremities: No cyanosis, Edema Skin: Ulcer/ Wound Wound Measurements and Assessment WC - Nurse 1 - General Ulcer Measurement Start: 06/28/20 09:59 Freq: Status: Active Protocol: Activity Type Activity Date Activity User E-Sign Co-Sign Detail Recorded Client Recorded Date Recorded By Document 07/12/20 10:18 DL [id number] 07/12/20 10:29 DL 07/12/20 10:18 Wound Center Nurse 1 [Ulcer Assessment] #2- Left lateral le -Current Size (cm) - Length 2.8 -Current Size (cm) - Width 0.8 -Current Size (cm) - Depth 0.1 -Total Square Cm 2.24 -Photo Taken No -Exudate Amt Medium -Exudate Type Serosanguineous -Wound Margin Thickened -Granulation Amt Small (1-33%) -Granulation Quality [place] -Necrosis Amt Large (67-100%) -Necrotic Tissue Type Adherent Slough -Structure Exposed N/A -Texture (Reina-wound Skin Appearance) Scarring -Moisture (Reina-wound Skin Appearance Maceration, ) Weeping -Color (Reina-wound Skin Appearance) Hemosiderin Staining -Temperature (Reina-wound Skin No Abnormality Appearance) (Pt Warm) -Tenderness on Palpation (Reina-wound Yes Skin Appearance) -Ulcer Cleansing Wound Cleanser -Foul Odor after Cleansing No -Anesthetic Used 4% Lidocaine Solution [Edema Assessment] -Right Calf (cm) 47.6 -Right Ankle (cm) 33.5 -Left Calf (cm) 46.5 -Left Ankle (cm) 30.3 WC - Nurse 2 - General Ulcer CM Notes Start: 06/28/20 09:59 Freq: Status: Active Protocol: Activity Type Activity Date Activity User E-Sign Co-Sign Detail Recorded Client Recorded Date Recorded By Document 07/12/20 10:51 MW [id number] 07/12/20 10:54 MW 07/12/20 10:51 Wound Center Nurse 2 [Procedure/Treatment] #2- Left lateral le -Time 10:52 -Correct Patient Yes -Correct Side, Site, Position Yes -Correct Procedure Yes -Procedure Performed Yes -Type of Procedure Debridement -Clinical Debridement Subcutaneous -Tissue Removed Subcutaneous -Post Debridement (cm) - Length 3.1 -Post Debridement (cm) - Width 0.9 -Post Debridement (cm) - Depth 0.1 -Total Square (Post) (cm) 2.79 -Area of Debridement (cm) - Length 3.1 -Area of Debridement (cm) - Width 0.9 -Total Square (Area) (cm) 2.79 -Tunneling No -Undermining/Tunneling No -Circular Undermining No -Wound/Ulcer Outcome Not Healed -Ulcer Cleansing Rinsed/ Irrigated with Saline -Foul Odor after Cleansing No -Bioengineered Tissue No -Bleeding Controlled with Pressure -Offloading No -Treatment Response Procedure Tolerated Well -Debridement - Subq, 1st 20sq cm Yes [See Physician Procedure note for Specifics] Pain Scale: 0-10 Numeric [Pain] -Is Patient Pain Free? Yes WC - Nurse 3 - General Ulcer D/C NN Start: 06/28/20 09:59 Freq: Status: Active Protocol: Activity Type Activity Date Activity User E-Sign Co-Sign Detail Recorded Client Recorded Date Recorded By Document 07/12/20 11:37 PL [id number] 07/12/20 11:38 PL 07/12/20 11:37 Wound Care Nurse 3 [Wound Dressing] #2- Left lateral le -Ulcer Cleansing Rinsed/ Irrigated with Saline -Foul Odor after Cleansing No -Primary Dressing Applied Promogran -Primary Dressing Covered/Secured Dry Gauze with -Promogran 1 [Compression Applied] Bilateral -Multi-Layered Wrap Application Unna Boot - Bilateral ($) -Unna Boots (Bilat) ($) 2 Pain Scale: 0-10 Numeric [Pain] -Is Patient Pain Free? Yes Musculoskeletal: No Muscle Wasting Neurological: Cranial nerves II-XII grossly intact Psych/Mental Status: Normal Affect Debridement Note Post-Debridement Measurements/Treatment WC - Nurse 2 - General Ulcer CM Notes Start: 06/28/20 09:59 Freq: Status: Active Protocol: Activity Type Activity Date Activity User E-Sign Co-Sign Detail Recorded Client Recorded Date Recorded By Document 06/28/20 10:24 MW [id number] 06/28/20 10:27 MW Document 07/05/20 14:11 MW [id number] 07/05/20 14:12 MW Document 07/12/20 10:51 MW [id number] 07/12/20 10:54 MW 06/28/20 07/05/20 07/12/20 10:24 14:11 10:51 Wound Center Nurse 2 #2- Left lateral le -Time 10:25 14:11 10:52 -Correct Patient Yes Yes Yes -Correct Side, Site, Position Yes Yes Yes -Correct Procedure Yes Yes Yes -Procedure Performed Yes Yes Yes -Type of Procedure Debridement Debridement Debridement -Clinical Debridement Subcutaneous Subcutaneous Subcutaneous -Tissue Removed Subcutaneous Subcutaneous Subcutaneous -Post Debridement (cm) - Length 5.0 3.2 3.1 -Post Debridement (cm) - Width 1.5 1.5 0.9 -Post Debridement (cm) - Depth 0.1 0.1 0.1 -Total Square (Post) (cm) 7.50 4.80 2.79 -Area of Debridement (cm) - Length 5.0 3.2 3.1 -Area of Debridement (cm) - Width 1.5 1 0.9 -Total Square (Area) (cm) 7.50 3.2 2.79 -Tunneling No No No -Undermining/Tunneling No No No -Circular Undermining No No No -Wound/Ulcer Outcome Not Healed Not Healed Not Healed -Ulcer Cleansing Rinsed/ Rinsed/ Rinsed/ Irrigated with Irrigated with Irrigated with Saline Saline Saline -Foul Odor after Cleansing No No -Bioengineered Tissue No No No -Bleeding Controlled with Pressure Pressure Pressure -Offloading No No No -Treatment Response Procedure Procedure Tolerated Well Tolerated Well -Debridement - Subq, 1st 20sq cm Yes Yes Yes Pain Scale: 0-10 Numeric Is Patient Pain Free? Yes Yes Yes WC - Nurse 3 - General Ulcer D/C NN Start: 06/28/20 09:59 Freq: Status: Active Protocol: Activity Type Activity Date Activity User E-Sign Co-Sign Detail Recorded Client Recorded Date Recorded By Document 06/28/20 10:42 DL [id number] 06/28/20 10:43 DL Document 07/05/20 14:19 RB [id number] 07/05/20 14:20 RB Document 07/12/20 11:37 PL [id number] 07/12/20 11:38 PL 06/28/20 07/05/20 07/12/20 10:42 14:19 11:37 Wound Care Nurse 3 #2- Left lateral le -Ulcer Cleansing Rinsed/ Rinsed/ Irrigated with Irrigated with Saline Saline -Foul Odor after Cleansing No No -Primary Dressing Applied Promogran Promogran Promogran -Primary Dressing Covered/Secured with Dry Gauze & Dry Gauze Roll Gauze -Promogran 1 1 1 Bilateral -Multi-Layered Wrap Application Unna Boot - Bilateral ($) -Unna Boots (Bilat) ($) 2 Left -Multi-Layered Wrap Application Unna Boot - Unna Boot - Bilateral ($) Bilateral ($) -Unna Boots (Bilat) ($) 2 2 Treatment Response Procedure Tolerated Well Vital Signs Blood Pressure (90/60-120/80 mm Hg) 126/70 H Blood Pressure Mean (mm Hg) 88 Source Manual Position Sitting Blood Pressure Location Left Arm Pain Scale: 0-10 Numeric Is Patient Pain Free? Yes Yes Yes WC - Visit Discharge Discharge Condition Stable Stable Ambulatory Status Ambulatory Ambulatory Transportation Private Auto Private Auto Medication Reconcilliation completed & No provided to patient/care provider Clinical Summary of Care Provided Yes Wound debrided: Left lower extremity Type of Debridement: Excisional debridement Anesthesia Used: 4% Lidocaine Solution Depth: Down to and including healthy tissue, in the subcutaneous layer Percentage of wound debrided: 100 Instrument Used: 3mm curette, - Tissue Removed: Slough and devitalized tissue Severity: Fat Layer Exposed Amount of bleeding with debridement: Mild Bleeding Controlled with: Pressure Patient tolerated procedure well Assessment/Plan Active Problems Stasis dermatitis of both legs (Chronic) Systolic CHF, chronic (Chronic) Obesity (BMI 30-39.9) (Chronic) CKD (chronic kidney disease) stage 3, GFR 30-59 ml/min (Chronic) Ulcer of left lower extremity with fat layer exposed (Chronic) Type 2 diabetes mellitus (Chronic) Bilateral lower extremity edema (Chronic) Morbid obesity (Chronic) Lymphedema (Chronic) Assessment: Nonhealing bilateral lower extremity ulcers, left greater than right. Significant left eschar to left leg ( lateral ). Poorly controlled diabetes mellitus. Chronic bilateral lower extremity edema. Plan: Debridement done as documented above, procedure was well-tolerated. Continue Promogran. Unna for edema management. Change on Thursday, Thursday and then follow-up in the wound center on . Moisturize adequately. Optimal diabetes management recommended. Strongly advised to elevate lower extremities when seated and in bed. Advised to use his pumps everyday (2 -3 x daily )Has gotten his Circaids. Increase protein intake, vitamin C and zinc. His questions were answered and he was advised to call with any further questions or concerns. Follow-up in 1 week. This note was generated with [employer] dictation software. It may contain incorrect words, spelling, and punctuation that were not noted in checking the note before signing. [id number]: [id number] June subq tissue 20 sq cm/<
[2020-07-19 08:27] VITALS: BP 122/58; PULSE 81; RESP 20; TEMP 36.8; BMI 41.5
--- NOTE | 2020-07-19 10:02 | PCM.WC.PN ---
(1) Ulcer of left lower extremity with fat layer exposed Status: Chronic Code(s): L97.922 - Non-pressure chronic ulcer of unspecified part of left lower leg with fat layer exposed (2) Lymphedema Status: Chronic Code(s): I89.0 - Lymphedema, not elsewhere classified (3) Obesity (BMI 30-39.9) Status: Chronic Code(s): E66.9 - Obesity, unspecified (4) Type 2 diabetes mellitus Status: Chronic Qualifiers: Code(s): E11.9 - Type 2 diabetes mellitus without complications Type of Wound Date of Service: 07/19/20 Chief Complaint: Nonhealing bilateral leg ulcers History of Wound: Mr. Garcia is a 64-year-old who was referred to the wound center due to nonhealing bilateral leg ulcers. Had presented to the emergency room at [facility] on the 05 of January due to significant bilateral lower extremity pain and redness. Managed for bilateral leg cellulitis. Discharged on the . Ulcers have been managed at home by home health. Was on Omnicef at discharge. Still reports significant predominantly left lower extremity pain. Edema is persistent. History of diabetes mellitus type 2 which is not well controlled, fasting blood glucose this morning said to be 178. He denies chills, fever, nausea or vomiting. Progress of Wound: No new concerns or significant change. Ulcer size slowly improving. He states that he is utilizing his pump. - Physical Exam Vital Signs Temp Pulse Resp BP Pulse Ox 98.3 F 81 20 H 122/58 H 97 07/19/20 08:27 07/19/20 08:27 07/19/20 08:27 07/19/20 08:27 06/25/20 00:14 General: Alert, Oriented x3, Cooperative, No apparent distress HEENT: Atraumatic, Normocephalic Oral: Moist Mucosa Neck: Supple Lungs: Normal air movement Abdomen: Non Tender, Obese Extremities: No cyanosis, Edema Skin: Ulcer/ Wound Wound Measurements and Assessment WC - Nurse 1 - General Ulcer Measurement Start: 06/28/20 09:59 Freq: Status: Active Protocol: Activity Type Activity Date Activity User E-Sign Co-Sign Detail Recorded Client Recorded Date Recorded By Document 07/19/20 08:27 DL [id number] 07/19/20 08:37 DL 07/19/20 08:27 Wound Center Nurse 1 [Ulcer Assessment] #2- Left lateral le -Current Size (cm) - Length 2.9 -Current Size (cm) - Width 0.8 -Current Size (cm) - Depth 0.2 -Total Square Cm 2.32 -Exudate Amt Medium -Exudate Type Serosanguineous -Wound Margin Distinct, Outline Attached -Granulation Amt Medium (34-66%) -Granulation Quality [place] -Necrosis Amt Medium (34-66%) -Necrotic Tissue Type Adherent Slough -Texture (Reina-wound Skin Appearance) Assessed, Scarring -Moisture (Reina-wound Skin Appearance Assessed, ) Maceration -Color (Reina-wound Skin Appearance) No Abnormality, Assessed -Temperature (Reina-wound Skin No Abnormality Appearance) (Pt Warm) -Tenderness on Palpation (Reina-wound No Skin Appearance) -Ulcer Cleansing soap and water -Foul Odor after Cleansing No -Anesthetic Used 4% Lidocaine Solution [Edema Assessment] -Right Calf (cm) 48.8 -Right Ankle (cm) 33.5 -Left Calf (cm) 47.8 -Left Ankle (cm) 30.9 WC - Nurse 2 - General Ulcer CM Notes Start: 06/28/20 09:59 Freq: Status: Active Protocol: Activity Type Activity Date Activity User E-Sign Co-Sign Detail Recorded Client Recorded Date Recorded By Document 07/19/20 08:49 MW [id number] 07/19/20 08:51 MW 07/19/20 08:49 Wound Center Nurse 2 [Procedure/Treatment] #2- Left lateral le -Time 08:49 -Correct Patient Yes -Correct Side, Site, Position Yes -Correct Procedure Yes -Procedure Performed Yes -Type of Procedure Debridement -Clinical Debridement Subcutaneous -Tissue Removed Subcutaneous -Post Debridement (cm) - Length 3.0 -Post Debridement (cm) - Width 0.7 -Post Debridement (cm) - Depth 0.1 -Total Square (Post) (cm) 2.10 -Area of Debridement (cm) - Length 3.0 -Area of Debridement (cm) - Width 0.7 -Total Square (Area) (cm) 2.10 -Tunneling No -Undermining/Tunneling No -Circular Undermining No -Wound/Ulcer Outcome Not Healed -Ulcer Cleansing Rinsed/ Irrigated with Saline -Foul Odor after Cleansing No -Bioengineered Tissue No -Bleeding Controlled with Pressure -Offloading No -Treatment Response Procedure Tolerated Well -Debridement - Subq, 1st 20sq cm Yes [See Physician Procedure note for Specifics] Pain Scale: 0-10 Numeric [Pain] -Is Patient Pain Free? Yes - Nurse 3 - General Ulcer D/C NN Start: 06/28/20 09:59 Freq: Status: Active Protocol: Activity Type Activity Date Activity User E-Sign Co-Sign Detail Recorded Client Recorded Date Recorded By Document 07/19/20 09:10 KR [id number] 07/19/20 09:14 KR 07/19/20 09:10 Wound Care Nurse 3 [Wound Dressing] #2- Left lateral le -Ulcer Cleansing Rinsed/ Irrigated with Saline -Primary Dressing Applied Promogran -Primary Dressing Covered/Secured Dry Gauze with -Promogran 1 [Compression Applied] Bilateral -Multi-Layered Wrap Application Multi-Layer Comp - Bilat ($ ) Pain Scale: 0-10 Numeric [Pain] -Is Patient Pain Free? Yes - Visit Discharge [Visit Discharge Information] -Discharge Condition Stable -Ambulatory Status Ambulatory -Transportation Private Auto Musculoskeletal: No Muscle Wasting Neurological: Cranial nerves II-XII grossly intact Psych/Mental Status: Normal Affect Debridement Note Post-Debridement Measurements/Treatment WC - Nurse 2 - General Ulcer CM Notes Start: 06/28/20 09:59 Freq: Status: Active Protocol: Activity Type Activity Date Activity User E-Sign Co-Sign Detail Recorded Client Recorded Date Recorded By Document 06/28/20 10:24 MW [id number] 06/28/20 10:27 MW Document 07/05/20 14:11 MW [id number] 07/05/20 14:12 MW Document 07/12/20 10:51 MW [id number] 07/12/20 10:54 MW Document 07/19/20 08:49 MW [id number] 07/19/20 08:51 MW 06/28/20 07/05/20 07/12/20 10:24 14:11 10:51 Wound Center Nurse 2 #2- Left lateral le -Time 10:25 14:11 10:52 -Correct Patient Yes Yes Yes -Correct Side, Site, Position Yes Yes Yes -Correct Procedure Yes Yes Yes -Procedure Performed Yes Yes Yes -Type of Procedure Debridement Debridement Debridement -Clinical Debridement Subcutaneous Subcutaneous Subcutaneous -Tissue Removed Subcutaneous Subcutaneous Subcutaneous -Post Debridement (cm) - Length 5.0 3.2 3.1 -Post Debridement (cm) - Width 1.5 1.5 0.9 -Post Debridement (cm) - Depth 0.1 0.1 0.1 -Total Square (Post) (cm) 7.50 4.80 2.79 -Area of Debridement (cm) - Length 5.0 3.2 3.1 -Area of Debridement (cm) - Width 1.5 1 0.9 -Total Square (Area) (cm) 7.50 3.2 2.79 -Tunneling No No No -Undermining/Tunneling No No No -Circular Undermining No No No -Wound/Ulcer Outcome Not Healed Not Healed Not Healed -Ulcer Cleansing Rinsed/ Rinsed/ Rinsed/ Irrigated with Irrigated with Irrigated with Saline Saline Saline -Foul Odor after Cleansing No No -Bioengineered Tissue No No No -Bleeding Controlled with Pressure Pressure Pressure -Offloading No No No -Treatment Response Procedure Procedure Tolerated Well Tolerated Well -Debridement - Subq, 1st 20sq cm Yes Yes Yes Pain Scale: 0-10 Numeric Is Patient Pain Free? Yes Yes Yes 07/19/20 08:49 Wound Center Nurse 2 #2- Left lateral le -Time 08:49 -Correct Patient Yes -Correct Side, Site, Position Yes -Correct Procedure Yes -Procedure Performed Yes -Type of Procedure Debridement -Clinical Debridement Subcutaneous -Tissue Removed Subcutaneous -Post Debridement (cm) - Length 3.0 -Post Debridement (cm) - Width 0.7 -Post Debridement (cm) - Depth 0.1 -Total Square (Post) (cm) 2.10 -Area of Debridement (cm) - Length 3.0 -Area of Debridement (cm) - Width 0.7 -Total Square (Area) (cm) 2.10 -Tunneling No -Undermining/Tunneling No -Circular Undermining No -Wound/Ulcer Outcome Not Healed -Ulcer Cleansing Rinsed/ Irrigated with Saline -Foul Odor after Cleansing No -Bioengineered Tissue No -Bleeding Controlled with Pressure -Offloading No -Treatment Response Procedure Tolerated Well -Debridement - Subq, 1st 20sq cm Yes Pain Scale: 0-10 Numeric Is Patient Pain Free? Yes WC - Nurse 3 - General Ulcer D/C NN Start: 06/28/20 09:59 Freq: Status: Active Protocol: Activity Type Activity Date Activity User E-Sign Co-Sign Detail Recorded Client Recorded Date Recorded By Document 06/28/20 10:42 DL [id number] 06/28/20 10:43 DL Document 07/05/20 14:19 RB [id number] 07/05/20 14:20 RB Document 07/12/20 11:37 PL [id number] 07/12/20 11:38 PL Document 07/19/20 09:10 KR [id number] 07/19/20 09:14 KR 06/28/20 07/05/20 07/12/20 10:42 14:19 11:37 Wound Care Nurse 3 #2- Left lateral le -Ulcer Cleansing Rinsed/ Rinsed/ Irrigated with Irrigated with Saline Saline -Foul Odor after Cleansing No No -Primary Dressing Applied Promogran Promogran Promogran -Primary Dressing Covered/Secured with Dry Gauze & Dry Gauze Roll Gauze -Promogran 1 1 1 Bilateral -Multi-Layered Wrap Application Unna Boot - Bilateral ($) -Unna Boots (Bilat) ($) 2 Left -Multi-Layered Wrap Application Unna Boot - Unna Boot - Bilateral ($) Bilateral ($) -Unna Boots (Bilat) ($) 2 2 Treatment Response Procedure Tolerated Well Vital Signs Blood Pressure (90/60-120/80 mm Hg) 126/70 H Blood Pressure Mean (mm Hg) 88 Source Manual Position Sitting Blood Pressure Location Left Arm Pain Scale: 0-10 Numeric Is Patient Pain Free? Yes Yes Yes WC - Visit Discharge Discharge Condition Stable Stable Ambulatory Status Ambulatory Ambulatory Transportation Private Auto Private Auto Medication Reconcilliation completed & No provided to patient/care provider Clinical Summary of Care Provided Yes 07/19/20 09:10 Wound Care Nurse 3 #2- Left lateral le -Ulcer Cleansing Rinsed/ Irrigated with Saline -Foul Odor after Cleansing -Primary Dressing Applied Promogran -Primary Dressing Covered/Secured with Dry Gauze -Promogran 1 Bilateral -Multi-Layered Wrap Application Multi-Layer Comp - Bilat ($ ) -Unna Boots (Bilat) ($) Left -Multi-Layered Wrap Application -Unna Boots (Bilat) ($) Treatment Response Vital Signs Blood Pressure (90/60-120/80 mm Hg) Blood Pressure Mean (mm Hg) Source Position Blood Pressure Location Pain Scale: 0-10 Numeric Is Patient Pain Free? Yes WC - Visit Discharge Discharge Condition Stable Ambulatory Status Ambulatory Transportation Private Auto Medication Reconcilliation completed & provided to patient/care provider Clinical Summary of Care Provided Wound debrided: Left lower extremity ( lateral ) Type of Debridement: Excisional debridement Anesthesia Used: 4% Lidocaine Solution Depth: Down to and including healthy tissue, in the subcutaneous layer Percentage of wound debrided: 100 Instrument Used: 3mm curette Tissue Removed: Slough and devitalized tissue Severity: Fat Layer Exposed Amount of bleeding with debridement: Mild Bleeding Controlled with: Pressure Patient tolerated procedure well Assessment/Plan Active Problems Stasis dermatitis of both legs (Chronic) Systolic CHF, chronic (Chronic) Obesity (BMI 30-39.9) (Chronic) CKD (chronic kidney disease) stage 3, GFR 30-59 ml/min (Chronic) Ulcer of left lower extremity with fat layer exposed (Chronic) Type 2 diabetes mellitus (Chronic) Bilateral lower extremity edema (Chronic) Morbid obesity (Chronic) Lymphedema (Chronic) Assessment: Nonhealing bilateral lower extremity ulcers, left greater than right. Significant left eschar to left leg ( lateral ). Poorly controlled diabetes mellitus. Chronic bilateral lower extremity edema. Plan: Debridement done as documented above, procedure was well-tolerated. Continue Promogran. 3M for edema management. Change on Thursday, Thursday and then follow-up in the wound center on . Moisturize adequately. Optimal diabetes management recommended. Strongly advised to elevate lower extremities when seated and in bed. Advised to use his pumps everyday (2 -3 x daily )Has gotten his Circaids. Increase protein intake, vitamin C and zinc. His questions were answered and he was advised to call with any further questions or concerns. Follow-up in 1 week. This note was generated with [employer] software. It may contain incorrect words, spelling, and punctuation that were not noted in checking the note before signing. [id number]: [id number] June subq tissue 20 sq cm/<
== END 2020-07-25 23:59 ==
LOC: WC 08:30
PROVIDERS: PCP Family Medicine; Referring Provider Family Medicine; Visit Provider Internal Medicine
DX: L97.922 Non-pressure chronic ulcer of unspecified part of left lower leg with fat layer exposed (principal); R60.0 Localized edema; I89.0 Lymphedema, not elsewhere classified; E66.9 Obesity, unspecified; Z68.30 Body mass index [BMI] 30.0-30.9, adult; E11.65 Type 2 diabetes mellitus with hyperglycemia; E66.01 Morbid (severe) obesity due to excess calories; E11.22 Type 2 diabetes mellitus with diabetic chronic kidney disease; I87.2 Venous insufficiency (chronic) (peripheral); N18.30 Chronic kidney disease, stage 3 unspecified; I13.0 Hypertensive heart and chronic kidney disease with heart failure and stage 1 through stage 4 chronic kidney disease, or unspecified chronic kidney disease; I50.22 Chronic systolic (congestive) heart failure
CPT/HCPCS: 11042; 29580; 29581

== ENCOUNTER 2020-08-23 10:15 | Outpatient (RCR) | payer MEDICARE, SELFPAY ==
[2020-07-26 00:25] VITALS: BP 122/58; PULSE 81; RESP 20; TEMP 36.8; O2SAT 97
[2020-07-26 09:27] VITALS: BP 116/60; PULSE 87; RESP 18; TEMP 36.2; BMI 41.5
--- NOTE | 2020-07-26 12:16 | PCM.WC.PN ---
(1) Ulcer of left lower extremity with fat layer exposed Status: Chronic Code(s): L97.922 - Non-pressure chronic ulcer of unspecified part of left lower leg with fat layer exposed (2) Lymphedema Status: Chronic Code(s): I89.0 - Lymphedema, not elsewhere classified (3) Obesity (BMI 30-39.9) Status: Chronic Code(s): E66.9 - Obesity, unspecified (4) Type 2 diabetes mellitus Status: Chronic Qualifiers: Code(s): E11.9 - Type 2 diabetes mellitus without complications Type of Wound Date of Service: 07/26/20 Chief Complaint: Nonhealing bilateral leg ulcers History of Wound: Mr. Garcia is a 64-year-old who was referred to the wound center due to nonhealing bilateral leg ulcers. Had presented to the emergency room at [facility] on the 05 of January due to significant bilateral lower extremity pain and redness. Managed for bilateral leg cellulitis. Discharged on the . Ulcers have been managed at home by home health. Was on Omnicef at discharge. Still reports significant predominantly left lower extremity pain. Edema is persistent. History of diabetes mellitus type 2 which is not well controlled, fasting blood glucose this morning said to be 178. He denies chills, fever, nausea or vomiting. Progress of Wound: Worsened lower extremity edema. 3M unavailable to home health. He denies any concerns at this time. - Physical Exam Vital Signs Temp Pulse Resp BP Pulse Ox 97.2 F L 87 18 116/60 97 07/26/20 09:27 07/26/20 09:27 07/26/20 09:27 07/26/20 09:27 07/26/20 00:25 General: Alert, Oriented x3, Cooperative, No apparent distress HEENT: Atraumatic, Normocephalic Oral: Moist Mucosa Neck: Supple Lungs: Normal air movement Abdomen: Obese Extremities: No cyanosis, Edema Skin: Ulcer/ Wound Wound Measurements and Assessment WC - Nurse 1 - General Ulcer Measurement Start: 07/26/20 09:25 Freq: Status: Active Protocol: Activity Type Activity Date Activity User E-Sign Co-Sign Detail Recorded Client Recorded Date Recorded By Document 07/26/20 09:27 PL [id number] 07/26/20 09:51 PL 07/26/20 09:27 Wound Center Nurse 1 [Ulcer Assessment] #2- Left lateral le -Current Size (cm) - Length 3.5 -Current Size (cm) - Width 1.5 -Current Size (cm) - Depth 0.1 -Total Square Cm 5.25 -Photo Taken No -Epithelialization None Present -Tunneling No -Undermining/Tunneling No -Circular Undermining No -Exudate Amt Large -Exudate Type Serosanguineous -Granulation Amt Large (67-100%) -Granulation Quality [place] -Slough/Fibrin Yes -Necrosis Amt Small (1-33%) -Necrotic Tissue Type Adherent Slough -Moisture (Reina-wound Skin Appearance Maceration ) -Color (Reina-wound Skin Appearance) Erythema -Temperature (Reina-wound Skin No Abnormality Appearance) (Pt Warm) -Ulcer Cleansing Soap and water -Anesthetic Used 5% Lidocaine Gel [Edema Assessment] -Right Calf (cm) 49 -Point of measurement (cm from the 33 medial instep) -Right Ankle (cm) 35.5 -Point of Measurement (cm from the 13 medial instep) -Left Calf (cm) 46 -Point of measurement (cm from the 30 medial instep) -Left Ankle (cm) 32 -Point of Measurement (cm from the 14 medial instep) WC - Nurse 2 - General Ulcer CM Notes Start: 07/26/20 09:25 Freq: Status: Active Protocol: Activity Type Activity Date Activity User E-Sign Co-Sign Detail Recorded Client Recorded Date Recorded By Document 07/26/20 10:08 MW [id number] 07/26/20 10:12 MW 07/26/20 10:08 Wound Center Nurse 2 [Procedure/Treatment] #2- Left lateral le -Time 10:09 -Correct Patient Yes -Correct Side, Site, Position Yes -Correct Procedure Yes -Procedure Performed Yes -Type of Procedure Debridement -Clinical Debridement Subcutaneous -Tissue Removed Subcutaneous -Post Debridement (cm) - Length 3.0 -Post Debridement (cm) - Width 1.0 -Post Debridement (cm) - Depth 0.1 -Total Square (Post) (cm) 3.00 -Area of Debridement (cm) - Length 3.0 -Area of Debridement (cm) - Width 1.0 -Total Square (Area) (cm) 3.00 -Tunneling No -Undermining/Tunneling No -Circular Undermining No -Wound/Ulcer Outcome Not Healed -Ulcer Cleansing Rinsed/ Irrigated with Saline -Foul Odor after Cleansing No -Bioengineered Tissue No -Bleeding Controlled with Pressure -Offloading No -Type of Offloading Surgical Shoe -Debridement - Subq, 20sq cm Yes [See Physician Procedure note for Specifics] Pain Scale: 0-10 Numeric [Pain] -Is Patient Pain Free? Yes Musculoskeletal: No Muscle Wasting Neurological: Cranial nerves II-XII grossly intact Psych/Mental Status: Normal Affect Debridement Note Post-Debridement Measurements/Treatment WC - Nurse 2 - General Ulcer CM Notes Start: 07/26/20 09:25 Freq: Status: Active Protocol: Activity Type Activity Date Activity User E-Sign Co-Sign Detail Recorded Client Recorded Date Recorded By Document 07/26/20 10:08 MW [id number] 07/26/20 10:12 MW 07/26/20 10:08 Wound Center Nurse 2 #2- Left lateral le -Time 10:09 -Correct Patient Yes -Correct Side, Site, Position Yes -Correct Procedure Yes -Procedure Performed Yes -Type of Procedure Debridement -Clinical Debridement Subcutaneous -Tissue Removed Subcutaneous -Post Debridement (cm) - Length 3.0 -Post Debridement (cm) - Width 1.0 -Post Debridement (cm) - Depth 0.1 -Total Square (Post) (cm) 3.00 -Area of Debridement (cm) - Length 3.0 -Area of Debridement (cm) - Width 1.0 -Total Square (Area) (cm) 3.00 -Tunneling No -Undermining/Tunneling No -Circular Undermining No -Wound/Ulcer Outcome Not Healed -Ulcer Cleansing Rinsed/ Irrigated with Saline -Foul Odor after Cleansing No -Bioengineered Tissue No -Bleeding Controlled with Pressure -Offloading No -Type of Offloading Surgical Shoe -Debridement - Subq, 1st 20sq cm Yes Pain Scale: 0-10 Numeric Is Patient Pain Free? Yes Wound debrided: Left Lower Extremity Type of Debridement: Excisional debridement Anesthesia Used: 4% Lidocaine Solution Depth: Down to and including healthy tissue, in the subcutaneous layer Percentage of wound debrided: 100 Instrument Used: 3mm curette Tissue Removed: Slough and devitalized tissue Severity: Fat Layer Exposed Amount of bleeding with debridement: Mild Bleeding Controlled with: Pressure Patient tolerated procedure well Assessment/Plan Assessment: Nonhealing bilateral lower extremity ulcers, left greater than right. Significant left eschar to left leg ( lateral ). Poorly controlled diabetes mellitus. Chronic bilateral lower extremity edema. Plan: Debridement done as documented above, procedure was well-tolerated. Worsened edema due to poor compression. Jennifer to ulcer and Ariella boot to bilateral lower extremity. Change on Thursday, Thursday and then follow-up in the wound center on . Moisturize adequately. Optimal diabetes management recommended. Strongly advised to elevate lower extremities when seated and in bed. Advised to use his pumps everyday (2 -3 x daily )Has gotten his Circaids. Increase protein intake, vitamin C and zinc. His questions were answered and he was advised to call with any further questions or concerns. Follow-up in 1 week. This note was generated with [employer]Order dictation software. It may contain incorrect words, spelling, and punctuation that were not noted in checking the note before signing. [id number]: [id number] June subq tissue 20 sq cm/<
[2020-08-02 09:22] VITALS: BP 112/56; PULSE 88; RESP 22; TEMP 36.4; BMI 41.5
--- NOTE | 2020-08-02 10:13 | PN.PCM_ITS ---
(1) Ulcer of left lower extremity with fat layer exposed Status: Chronic Code(s): L97.922 - Non-pressure chronic ulcer of unspecified part of left lower leg with fat layer exposed (2) Lymphedema Status: Chronic Code(s): I89.0 - Lymphedema, not elsewhere classified (3) Obesity (BMI 30-39.9) Status: Chronic Code(s): E66.9 - Obesity, unspecified (4) Type 2 diabetes mellitus Status: Chronic Qualifiers: Code(s): E11.9 - Type 2 diabetes mellitus without complications Type of Wound Date of Service: 08/02/20 Chief Complaint: Nonhealing bilateral leg ulcers History of Wound: Mr. Garcia is a 64-year-old who was referred to the wound center due to nonhealing bilateral leg ulcers. Had presented to the emergency room at [facility] on the 05 of January due to significant bilateral lower extremity pain and redness. Managed for bilateral leg cellulitis. Discharged on the . Ulcers have been managed at home by home health. Was on Omnicef at discharge. Still reports significant predominantly left lower extremity pain. Edema is persistent. History of diabetes mellitus type 2 which is not well controlled, fasting blood glucose this morning said to be 178. He denies chills, fever, nausea or vomiting. Progress of Wound: No new concerns or changes at this time. - Physical Exam Vital Signs Temp Pulse Resp BP Pulse Ox 97.6 F L 88 22 H 112/56 L 97 08/02/20 09:22 08/02/20 09:22 08/02/20 09:22 08/02/20 09:22 07/26/20 00:25 General: Alert, Oriented x3, Cooperative, No apparent distress HEENT: Atraumatic, Normocephalic Oral: Moist Mucosa Neck: Supple Lungs: Normal air movement Abdomen: Non Tender, Obese Extremities: No cyanosis, Edema Skin: Ulcer/ Wound Wound Measurements and Assessment WC - Nurse 1 - General Ulcer Measurement Start: 07/26/20 09:25 Freq: Status: Active Protocol: Activity Type Activity Date Activity User E-Sign Co-Sign Detail Recorded Client Recorded Date Recorded By Document 08/02/20 09:22 DL [id number] 08/02/20 09:35 DL 08/02/20 09:22 Wound Center Nurse 1 [Ulcer Assessment] #2- Left lateral le -Current Size (cm) - Length 2.8 -Current Size (cm) - Width 0.6 -Current Size (cm) - Depth 0.1 -Total Square Cm 1.68 -Photo Taken No -Exudate Amt Small -Exudate Type Serosanguineous -Wound Margin Distinct, Outline Attached -Granulation Amt Small (1-33%) -Granulation Quality [place] -Necrosis Amt Large (67-100%) -Necrotic Tissue Type Adherent Slough -Structure Exposed N/A -Texture (Reina-wound Skin Appearance) Excoriation, Rash -Moisture (Reina-wound Skin Appearance Weeping ) -Color (Reina-wound Skin Appearance) Hemosiderin Staining -Temperature (Reina-wound Skin No Abnormality Appearance) (Pt Warm) -Tenderness on Palpation (Reina-wound No Skin Appearance) -Ulcer Cleansing Wound Cleanser -Foul Odor after Cleansing No -Anesthetic Used 5% Lidocaine Gel [Edema Assessment] -Right Calf (cm) 47.3 -Right Ankle (cm) 33.8 -Left Calf (cm) 46.2 -Left Ankle (cm) 30.7 WC - Nurse 2 - General Ulcer CM Notes Start: 07/26/20 09:25 Freq: Status: Active Protocol: Activity Type Activity Date Activity User E-Sign Co-Sign Detail Recorded Client Recorded Date Recorded By Document 08/02/20 09:44 MW [id number] 08/02/20 09:47 MW 08/02/20 09:44 Wound Center Nurse 2 [Procedure/Treatment] #2- Left lateral le -Time 09:44 -Correct Patient Yes -Correct Side, Site, Position Yes -Correct Procedure Yes -Procedure Performed Yes -Type of Procedure Debridement -Clinical Debridement Subcutaneous -Tissue Removed Subcutaneous -Post Debridement (cm) - Length 3.3 -Post Debridement (cm) - Width 0.9 -Post Debridement (cm) - Depth 0.1 -Total Square (Post) (cm) 2.97 -Area of Debridement (cm) - Length 3.3 -Area of Debridement (cm) - Width 0.9 -Total Square (Area) (cm) 2.97 -Tunneling No -Undermining/Tunneling No -Circular Undermining No -Wound/Ulcer Outcome Not Healed -Ulcer Cleansing Rinsed/ Irrigated with Saline -Foul Odor after Cleansing No -Bioengineered Tissue No -Bleeding Controlled with Pressure -Offloading No -Treatment Response Procedure Tolerated Well -Debridement - Subq, 1st 20sq cm Yes [See Physician Procedure note for Specifics] Pain Scale: 0-10 Numeric [Pain] -Is Patient Pain Free? Yes Musculoskeletal: No Muscle Wasting Neurological: Cranial nerves II-XII grossly intact Psych/Mental Status: Normal Affect Debridement Note Post-Debridement Measurements/Treatment WC - Nurse 2 - General Ulcer CM Notes Start: 07/26/20 09:25 Freq: Status: Active Protocol: Activity Type Activity Date Activity User E-Sign Co-Sign Detail Recorded Client Recorded Date Recorded By Document 07/26/20 10:08 MW [id number] 07/26/20 10:12 MW Document 08/02/20 09:44 MW [id number] 08/02/20 09:47 MW 07/26/20 08/02/20 10:08 09:44 Wound Center Nurse 2 #2- Left lateral le -Time 10:09 09:44 -Correct Patient Yes Yes -Correct Side, Site, Position Yes Yes -Correct Procedure Yes Yes -Procedure Performed Yes Yes -Type of Procedure Debridement Debridement -Clinical Debridement Subcutaneous Subcutaneous -Tissue Removed Subcutaneous Subcutaneous -Post Debridement (cm) - Length 3.0 3.3 -Post Debridement (cm) - Width 1.0 0.9 -Post Debridement (cm) - Depth 0.1 0.1 -Total Square (Post) (cm) 3.00 2.97 -Area of Debridement (cm) - Length 3.0 3.3 -Area of Debridement (cm) - Width 1.0 0.9 -Total Square (Area) (cm) 3.00 2.97 -Tunneling No No -Undermining/Tunneling No No -Circular Undermining No No -Wound/Ulcer Outcome Not Healed Not Healed -Ulcer Cleansing Rinsed/ Rinsed/ Irrigated with Irrigated with Saline Saline -Foul Odor after Cleansing No No -Bioengineered Tissue No No -Bleeding Controlled with Pressure Pressure -Offloading No No -Type of Offloading Surgical Shoe -Treatment Response Procedure Tolerated Well -Debridement - Subq, 1st 20sq cm Yes Yes Pain Scale: 0-10 Numeric Is Patient Pain Free? Yes Yes - Nurse 3 - General Ulcer D/C NN Start: 07/26/20 09:25 Freq: Status: Active Protocol: Activity Type Activity Date Activity User E-Sign Co-Sign Detail Recorded Client Recorded Date Recorded By Document 07/26/20 10:30 PL [id number] 07/27/20 05:29 PL 07/26/20 10:30 Wound Care Nurse 3 #2- Left lateral le -Ulcer Cleansing Rinsed/ Irrigated with Saline -Foul Odor after Cleansing No -Primary Dressing Applied Promogran -Primary Dressing Covered/Secured with Dry Gauze -Promogran 1 Bilateral -Multi-Layered Wrap Application Unna Boot - Bilateral ($) -Unna Boots (Bilat) ($) 2 WC - Visit Discharge Discharge Condition Stable Ambulatory Status Ambulatory Transportation Private Auto Clinical Summary of Care Provided Yes Wound debrided: Leg Lower Extremity ( Lateral ) Type of Debridement: Excisional debridement Anesthesia Used: 4% Lidocaine Solution Depth: Down to and including healthy tissue, in the subcutaneous layer Percentage of wound debrided: 100 Instrument Used: 3mm curette Tissue Removed: Slough and devitalized tissue Severity: Fat Layer Exposed Amount of bleeding with debridement: Mild Bleeding Controlled with: Pressure Assessment/Plan Active Problems Obesity (BMI 30-39.9) (Chronic) Ulcer of left lower extremity with fat layer exposed (Chronic) Type 2 diabetes mellitus (Chronic) Lymphedema (Chronic) Assessment: Nonhealing bilateral lower extremity ulcers, left greater than right. Significant left eschar to left leg ( lateral ). Poorly controlled diabetes mellitus. Chronic bilateral lower extremity edema. Plan: Debridement done as documented above, procedure was well-tolerated. Ulcer has stalled for weeks. Patient now open to skin substituite. Will repapply. For now, continue kacie to ulcer and Ariella boot to bilateral lower extremity. Change on Thursday, Thursday and then follow-up in the wound center on . Moisturize adequately. Optimal diabetes management recommended. Strongly advised to elevate lower extremities when seated and in bed. Advised to use his pumps everyday (2 -3 x daily )Has gotten his Circaids. Increase protein intake, vitamin C and zinc. His questions were answered and he was advised to call with any further questions or concerns. Follow-up in 1 week. This note was generated with [employer] software. It may contain incorrect words, spelling, and punctuation that were not noted in checking the note before signing. [id number]: [id number] June subq tissue 20 sq cm/<
[2020-08-09 09:50] VITALS: BP 115/68; PULSE 87; RESP 20; BMI 41.5
--- NOTE | 2020-08-09 10:56 | PN.PCM_ITS ---
(1) Ulcer of left lower extremity with fat layer exposed Status: Chronic Code(s): L97.922 - Non-pressure chronic ulcer of unspecified part of left lower leg with fat layer exposed (2) Lymphedema Status: Chronic Code(s): I89.0 - Lymphedema, not elsewhere classified (3) Obesity (BMI 30-39.9) Status: Chronic Code(s): E66.9 - Obesity, unspecified (4) Type 2 diabetes mellitus Status: Chronic Qualifiers: Code(s): E11.9 - Type 2 diabetes mellitus without complications Type of Wound Date of Service: 08/09/20 Chief Complaint: Nonhealing bilateral leg ulcers History of Wound: Mr. Garcia is a 64-year-old who was referred to the wound center due to nonhealing bilateral leg ulcers. Had presented to the emergency room at [facility] on the 05 of January due to significant bilateral lower extremity pain and redness. Managed for bilateral leg cellulitis. Discharged on the . Ulcers have been managed at home by home health. Was on Omnicef at discharge. Still reports significant predominantly left lower extremity pain. Edema is persistent. History of diabetes mellitus type 2 which is not well controlled, fasting blood glucose this morning said to be 178. He denies chills, fever, nausea or vomiting. Progress of Wound: No new concerns at this time. He states that he has been using his pumps as prescribed. - Physical Exam Vital Signs Temp Pulse Resp BP Pulse Ox 97.6 F L 87 20 H 115/68 97 08/02/20 09:22 08/09/20 09:50 08/09/20 09:50 08/09/20 09:50 07/26/20 00:25 General: Alert, Oriented x3, Cooperative, No apparent distress HEENT: Atraumatic, Normocephalic Oral: Moist Mucosa Neck: Supple Lungs: Normal air movement Abdomen: Non Tender, Obese Extremities: No cyanosis, Edema Skin: No breakdown Wound Measurements and Assessment WC - Nurse 1 - General Ulcer Measurement Start: 07/26/20 09:25 Freq: Status: Active Protocol: Activity Type Activity Date Activity User E-Sign Co-Sign Detail Recorded Client Recorded Date Recorded By Document 08/09/20 09:50 W[place] [id number] 08/09/20 09:59 MT 08/09/20 09:50 Wound Center Nurse 1 [Ulcer Assessment] #2- Left lateral le -Current Size (cm) - Length 5 -Current Size (cm) - Width 0.6 -Current Size (cm) - Depth 0.1 -Total Square Cm 3.0 -Tunneling No -Undermining/Tunneling No -Circular Undermining No -Wound Margin Flat & Intact -Granulation Amt Large (67-100%) -Granulation Quality Pale,[place] -Slough/Fibrin No -Texture (Reina-wound Skin Appearance) Assessed, Localized Edema -Moisture (Reina-wound Skin Appearance Assessed, ) Maceration, Weeping -Color (Reina-wound Skin Appearance) Assessed, Erythema,Palor -Temperature (Reina-wound Skin No Abnormality Appearance) (Pt Warm) -Tenderness on Palpation (Reina-wound Yes Skin Appearance) -Ulcer Cleansing Wound Cleanser -Foul Odor after Cleansing No -Anesthetic Used 4% Lidocaine Solution [Edema Assessment] -Right Calf (cm) 47 -Right Ankle (cm) 34 -Left Calf (cm) 44.5 -Left Ankle (cm) 30.5 WC - Nurse 2 - General Ulcer CM Notes Start: 07/26/20 09:25 Freq: Status: Active Protocol: Activity Type Activity Date Activity User E-Sign Co-Sign Detail Recorded Client Recorded Date Recorded By Document 08/09/20 10:29 MW [id number] 08/09/20 10:32 MW 08/09/20 10:29 Wound Center Nurse 2 [Procedure/Treatment] #2- Left lateral le -Time 10:29 -Correct Patient Yes -Correct Side, Site, Position Yes -Correct Procedure Yes -Procedure Performed Yes -Type of Procedure Debridement -Clinical Debridement Subcutaneous -Tissue Removed Subcutaneous -Post Debridement (cm) - Length 3.0 -Post Debridement (cm) - Width 0.8 -Post Debridement (cm) - Depth 0.1 -Total Square (Post) (cm) 2.40 -Area of Debridement (cm) - Length 3.0 -Area of Debridement (cm) - Width 0.8 -Total Square (Area) (cm) 2.40 -Tunneling No -Undermining/Tunneling No -Circular Undermining No -Wound/Ulcer Outcome Not Healed -Ulcer Cleansing Rinsed/ Irrigated with Saline -Foul Odor after Cleansing No -Bioengineered Tissue No -Bleeding Controlled with Pressure -Offloading No -Treatment Response Procedure Tolerated Well -Debridement - Subq, 1st 20sq cm Yes [See Physician Procedure note for Specifics] Pain Scale: 0-10 Numeric [Pain] -Is Patient Pain Free? Yes Musculoskeletal: No Muscle Wasting Neurological: Cranial nerves II-XII grossly intact Psych/Mental Status: Normal Affect Debridement Note Post-Debridement Measurements/Treatment WC - Nurse 2 - General Ulcer CM Notes Start: 07/26/20 09:25 Freq: Status: Active Protocol: Activity Type Activity Date Activity User E-Sign Co-Sign Detail Recorded Client Recorded Date Recorded By Document 07/26/20 10:08 MW [id number] 07/26/20 10:12 MW Document 08/02/20 09:44 MW [id number] 08/02/20 09:47 MW Document 08/09/20 10:29 MW [id number] 08/09/20 10:32 MW 07/26/20 08/02/20 08/09/20 10:08 09:44 10:29 Wound Center Nurse 2 #2- Left lateral le -Time 10:09 09:44 10:29 -Correct Patient Yes Yes Yes -Correct Side, Site, Position Yes Yes Yes -Correct Procedure Yes Yes Yes -Procedure Performed Yes Yes Yes -Type of Procedure Debridement Debridement Debridement -Clinical Debridement Subcutaneous Subcutaneous Subcutaneous -Tissue Removed Subcutaneous Subcutaneous Subcutaneous -Post Debridement (cm) - Length 3.0 3.3 3.0 -Post Debridement (cm) - Width 1.0 0.9 0.8 -Post Debridement (cm) - Depth 0.1 0.1 0.1 -Total Square (Post) (cm) 3.00 2.97 2.40 -Area of Debridement (cm) - Length 3.0 3.3 3.0 -Area of Debridement (cm) - Width 1.0 0.9 0.8 -Total Square (Area) (cm) 3.00 2.97 2.40 -Tunneling No No No -Undermining/Tunneling No No No -Circular Undermining No No No -Wound/Ulcer Outcome Not Healed Not Healed Not Healed -Ulcer Cleansing Rinsed/ Rinsed/ Rinsed/ Irrigated with Irrigated with Irrigated with Saline Saline Saline -Foul Odor after Cleansing No No No -Bioengineered Tissue No No No -Bleeding Controlled with Pressure Pressure Pressure -Offloading No No No -Type of Offloading Surgical Shoe -Treatment Response Procedure Procedure Tolerated Well Tolerated Well -Debridement - Subq, 1st 20sq cm Yes Yes Yes Pain Scale: 0-10 Numeric Is Patient Pain Free? Yes Yes Yes - Nurse 3 - General Ulcer D/C NN Start: 07/26/20 09:25 Freq: Status: Active Protocol: Activity Type Activity Date Activity User E-Sign Co-Sign Detail Recorded Client Recorded Date Recorded By Document 07/26/20 10:30 PL [id number] 07/27/20 05:29 PL Document 08/02/20 10:12 DL [id number] 08/02/20 10:13 DL 07/26/20 08/02/20 10:30 10:12 Wound Care Nurse 3 #2- Left lateral le -Ulcer Cleansing Rinsed/ Rinsed/ Irrigated with Irrigated with Saline Saline -Foul Odor after Cleansing No No -Primary Dressing Applied Promogran Promogran Kacie Matter -Primary Dressing Covered/Secured with Dry Gauze Dry Gauze -Promogran 1 -Promogran Kacie Matter 1 Bilateral -Multi-Layered Wrap Application Unna Boot - Unna Boot - Bilateral ($) Bilateral ($) -Unna Boots (Bilat) ($) 2 1 Treatment Response Procedure Tolerated Well Pain Scale: 0-10 Numeric Is Patient Pain Free? Yes WC - Visit Discharge Discharge Condition Stable Stable Ambulatory Status Ambulatory Ambulatory Transportation Private Auto Private Auto Clinical Summary of Care Provided Yes Wound debrided: Left Lower extremity Type of Debridement: Excisional debridement Anesthesia Used: 4% Lidocaine Solution Depth: Down to and including healthy tissue, in the subcutaneous layer Percentage of wound debrided: 100 Instrument Used: 3mm curette Tissue Removed: Slough and devitalized tissue Severity: Fat Layer Exposed Amount of bleeding with debridement: Mild Bleeding Controlled with: Pressure Patient tolerated procedure well Assessment/Plan Active Problems Obesity (BMI 30-39.9) (Chronic) Ulcer of left lower extremity with fat layer exposed (Chronic) Type 2 diabetes mellitus (Chronic) Lymphedema (Chronic) Assessment: Nonhealing bilateral lower extremity ulcers, left greater than right. Significant left eschar to left leg ( lateral ). Poorly controlled diabetes mellitus. Chronic bilateral lower extremity edema. Plan: Debridement done as documented above, procedure was well-tolerated. Minimal improvement. Application for Skin still pending. For now, continue kacie to ulcer and Ariella boot to bilateral lower extremity. Change on Thursday, Thursday and then follow-up in the wound center on . Moisturize adequately. Optimal diabetes management recommended. Strongly advised to elevate lower extremities when seated and in bed. Advised to use his pumps everyday (2 -3 x daily )Has gotten his Circaids. Increase protein intake, vitamin C and zinc. His questions were answered and he was advised to call with any further questions or concerns. Follow-up in 1 week. This note was generated with [employer] dictation software. It may contain incorrect words, spelling, and punctuation that were not noted in checking the note before signing. [id number]: [id number] June subq tissue 20 sq cm/<
[2020-08-16 09:31] VITALS: BP 143/75; PULSE 87; TEMP 36.6; BMI 41.5
--- NOTE | 2020-08-16 10:24 | PN.PCM_ITS ---
(1) Ulcer of left lower extremity with fat layer exposed Status: Chronic Code(s): L97.922 - Non-pressure chronic ulcer of unspecified part of left lower leg with fat layer exposed (2) Lymphedema Status: Chronic Code(s): I89.0 - Lymphedema, not elsewhere classified (3) Obesity (BMI 30-39.9) Status: Chronic Code(s): E66.9 - Obesity, unspecified (4) Type 2 diabetes mellitus Status: Chronic Qualifiers: Code(s): E11.9 - Type 2 diabetes mellitus without complications Type of Wound Date of Service: 08/16/20 Chief Complaint: Nonhealing bilateral leg ulcers History of Wound: Mr. Garcia is a 64-year-old who was referred to the wound center due to nonhealing bilateral leg ulcers. Had presented to the emergency room at [facility] on the 05 of January due to significant bilateral lower extremity pain and redness. Managed for bilateral leg cellulitis. Discharged on the . Ulcers have been managed at home by home health. Was on Omnicef at discharge. Still reports significant predominantly left lower extremity pain. Edema is persistent. History of diabetes mellitus type 2 which is not well controlled, fasting blood glucose this morning said to be 178. He denies chills, fever, nausea or vomiting. Progress of Wound: No new concerns at this time. He states that he has been using his pumps as prescribed. Now approved for [facility] - Physical Exam Vital Signs Temp Pulse Resp BP Pulse Ox 97.9 F 87 20 H 143/75 H 97 08/16/20 09:31 08/16/20 09:31 08/09/20 09:50 08/16/20 09:31 07/26/20 00:25 General: Alert, Oriented x3, Cooperative, No apparent distress HEENT: Atraumatic, Normocephalic Oral: Moist Mucosa Neck: Supple Lungs: Normal air movement Abdomen: Non Tender, Obese Extremities: No cyanosis Skin: Ulcer/ Wound Wound Measurements and Assessment WC - Nurse 1 - General Ulcer Measurement Start: 07/26/20 09:25 Freq: Status: Active Protocol: Activity Type Activity Date Activity User E-Sign Co-Sign Detail Recorded Client Recorded Date Recorded By Document 08/16/20 09:31 RAÚL [id number] 08/16/20 09:34 KR 08/16/20 09:31 Wound Center Nurse 1 [Ulcer Assessment] #2- Left lateral le -Current Size (cm) - Length 3.1 -Current Size (cm) - Width 0.6 -Current Size (cm) - Depth 0.1 -Total Square Cm 1.86 -Exudate Amt Medium -Exudate Type Serosanguineous -Wound Margin Distinct, Outline Attached -Granulation Amt Medium (34-66%) -Granulation Quality Red -Necrosis Amt Medium (34-66%) -Necrotic Tissue Type Adherent Slough -Texture (Reina-wound Skin Appearance) Assessed, Localized Edema ,Scarring -Moisture (Reina-wound Skin Appearance Assessed, ) Maceration, Weeping,Dry/ Scaly -Color (Reina-wound Skin Appearance) No Abnormality, Assessed -Temperature (Reina-wound Skin No Abnormality Appearance) (Pt Warm) -Tenderness on Palpation (Reina-wound No Skin Appearance) -Ulcer Cleansing soap and water -Foul Odor after Cleansing No -Anesthetic Used 4% Lidocaine Solution [Edema Assessment] -Right Calf (cm) 46 -Right Ankle (cm) 37 -Left Calf (cm) 48 -Left Ankle (cm) 33 WC - Nurse 2 - General Ulcer CM Notes Start: 07/26/20 09:25 Freq: Status: Active Protocol: Activity Type Activity Date Activity User E-Sign Co-Sign Detail Recorded Client Recorded Date Recorded By Document 08/16/20 09:55 MW [id number] 08/16/20 10:04 MW 08/16/20 09:55 Wound Center Nurse 2 [Procedure/Treatment] #2- Left lateral le -Time 10:02 -Correct Patient Yes -Correct Side, Site, Position Yes -Correct Procedure Yes -Procedure Performed Yes -Type of Procedure Debridement -Clinical Debridement Subcutaneous -Tissue Removed Subcutaneous -Post Debridement (cm) - Length 3.2 -Post Debridement (cm) - Width 0.8 -Post Debridement (cm) - Depth 0.1 -Total Square (Post) (cm) 2.56 -Area of Debridement (cm) - Length 3.2 -Area of Debridement (cm) - Width 0.8 -Total Square (Area) (cm) 2.56 -Tunneling No -Undermining/Tunneling No -Circular Undermining No -Wound/Ulcer Outcome Not Healed -Ulcer Cleansing Rinsed/ Irrigated with Saline -Foul Odor after Cleansing No -Bioengineered Tissue Yes -Type of Bioengineered Tissue PuraPly AM -Expiration Date 08/13/22 -Product Lot Number [id number] -Percent Used 100 -Lot number of Saline Used [id number] -Bleeding Controlled with Pressure -Offloading No -Debridement - Subq, 1st 20sq cm No -Apply Skin Sub - 1st 25 sq cm - Legs 1 -PuraPly AM (per sq cm) 4 [See Physician Procedure note for Specifics] Pain Scale: 0-10 Numeric [Pain] -Is Patient Pain Free? Yes - Nurse 3 - General Ulcer D/C NN Start: 07/26/20 09:25 Freq: Status: Active Protocol: Activity Type Activity Date Activity User E-Sign Co-Sign Detail Recorded Client Recorded Date Recorded By Document 08/16/20 10:14 DL [id number] 08/16/20 10:17 DL 08/16/20 10:14 Wound Care Nurse 3 [Wound Dressing] #2- Left lateral le -Foul Odor after Cleansing No -Primary Dressing Applied Aquacel Extra -Other Dressing PurPly -Other Covering DryMax Absorbant pads -Aquacel Extra 1 [Compression Applied] Bilateral -Multi-Layered Wrap Application Unna Boot - Bilateral ($) -Unna Boots (Bilat) ($) 1 -Other DryMax abdorbant pads Pain Scale: 0-10 Numeric [Pain] -Is Patient Pain Free? Yes - Visit Discharge [Visit Discharge Information] -Discharge Condition Stable -Ambulatory Status Ambulatory -Transportation Private Auto Musculoskeletal: No Muscle Wasting Neurological: Cranial nerves II-XII grossly intact Psych/Mental Status: Normal Affect Debridement Note Post-Debridement Measurements/Treatment - Nurse 2 - General Ulcer CM Notes Start: 07/26/20 09:25 Freq: Status: Active Protocol: Activity Type Activity Date Activity User E-Sign Co-Sign Detail Recorded Client Recorded Date Recorded By Document 07/26/20 10:08 MW [id number] 07/26/20 10:12 MW Document 08/02/20 09:44 MW [id number] 08/02/20 09:47 MW Document 08/09/20 10:29 MW [id number] 08/09/20 10:32 MW Document 08/16/20 09:55 MW [id number] 08/16/20 10:04 MW 04/05/1708/02/20 08/09/20 10:08 09:44 10:29 Wound Center Nurse 2 #2- Left lateral le -Time 10:09 09:44 10:29 -Correct Patient Yes Yes Yes -Correct Side, Site, Position Yes Yes Yes -Correct Procedure Yes Yes Yes -Procedure Performed Yes Yes Yes -Type of Procedure Debridement Debridement Debridement -Clinical Debridement Subcutaneous Subcutaneous Subcutaneous -Tissue Removed Subcutaneous Subcutaneous Subcutaneous -Post Debridement (cm) - Length 3.0 3.3 3.0 -Post Debridement (cm) - Width 1.0 0.9 0.8 -Post Debridement (cm) - Depth 0.1 0.1 0.1 -Total Square (Post) (cm) 3.00 2.97 2.40 -Area of Debridement (cm) - Length 3.0 3.3 3.0 -Area of Debridement (cm) - Width 1.0 0.9 0.8 -Total Square (Area) (cm) 3.00 2.97 2.40 -Tunneling No No No -Undermining/Tunneling No No No -Circular Undermining No No No -Wound/Ulcer Outcome Not Healed Not Healed Not Healed -Ulcer Cleansing Rinsed/ Rinsed/ Rinsed/ Irrigated with Irrigated with Irrigated with Saline Saline Saline -Foul Odor after Cleansing No No No -Bioengineered Tissue No No No -Type of Bioengineered Tissue -Expiration Date -Product Lot Number -Percent Used -Lot number of Saline Used -Bleeding Controlled with Pressure Pressure Pressure -Offloading No No No -Type of Offloading Surgical Shoe -Treatment Response Procedure Procedure Tolerated Well Tolerated Well -Debridement - Subq, 1st 20sq cm Yes Yes Yes -Apply Skin Sub - 1st 25 sq cm - Legs -PuraPly AM (per sq cm) Pain Scale: 0-10 Numeric Is Patient Pain Free? Yes Yes Yes 08/16/20 09:55 Wound Center Nurse 2 #2- Left lateral le -Time 10:02 -Correct Patient Yes -Correct Side, Site, Position Yes -Correct Procedure Yes -Procedure Performed Yes -Type of Procedure Debridement -Clinical Debridement Subcutaneous -Tissue Removed Subcutaneous -Post Debridement (cm) - Length 3.2 -Post Debridement (cm) - Width 0.8 -Post Debridement (cm) - Depth 0.1 -Total Square (Post) (cm) 2.56 -Area of Debridement (cm) - Length 3.2 -Area of Debridement (cm) - Width 0.8 -Total Square (Area) (cm) 2.56 -Tunneling No -Undermining/Tunneling No -Circular Undermining No -Wound/Ulcer Outcome Not Healed -Ulcer Cleansing Rinsed/ Irrigated with Saline -Foul Odor after Cleansing No -Bioengineered Tissue Yes -Type of Bioengineered Tissue PuraPly AM -Expiration Date 08/13/22 -Product Lot Number [id number] -Percent Used 100 -Lot number of Saline Used [id number] -Bleeding Controlled with Pressure -Offloading No -Type of Offloading -Treatment Response -Debridement - Subq, 1st 20sq cm No -Apply Skin Sub - 1st 25 sq cm - Legs 1 -PuraPly AM (per sq cm) 4 Pain Scale: 0-10 Numeric Is Patient Pain Free? Yes - Nurse 3 - General Ulcer D/C NN Start: 07/26/20 09:25 Freq: Status: Active Protocol: Activity Type Activity Date Activity User E-Sign Co-Sign Detail Recorded Client Recorded Date Recorded By Document 07/26/20 10:30 PL [id number] 07/27/20 05:29 PL Document 08/02/20 10:12 DL [id number] 08/02/20 10:13 DL Document 08/09/20 11:03 MT [id number] 08/09/20 11:04 MT Document 08/16/20 10:14 DL [id number] 08/16/20 10:17 DL 07/26/20 08/02/20 08/09/20 10:30 10:12 11:03 Wound Care Nurse 3 #2- Left lateral le -Ulcer Cleansing Rinsed/ Rinsed/ Irrigated with Irrigated with Saline Saline -Foul Odor after Cleansing No No -Primary Dressing Applied Promogran Promogran Jennifer Matter -Other Dressing he brought jennifer from home -Primary Dressing Covered/Secured with Dry Gauze Dry Gauze Dry Gauze & Roll Gauze -Other Covering -Aquacel Extra -Promogran 1 -Promogran Jennifer Matter 1 Bilateral -Multi-Layered Wrap Application Unna Boot - Unna Boot - Bilateral ($) Bilateral ($) -Unna Boots (Bilat) ($) 2 1 -Other Treatment Response Procedure Tolerated Well Pain Scale: 0-10 Numeric Is Patient Pain Free? Yes - Visit Discharge Discharge Condition Stable Stable Stable Ambulatory Status Ambulatory Ambulatory Transportation Private Auto Private Auto Private Auto Medication Reconcilliation completed & No provided to patient/care provider Clinical Summary of Care Provided Yes Yes Notes: keep legs dry and elevate. 08/16/20 10:14 Wound Care Nurse 3 #2- Left lateral le -Ulcer Cleansing -Foul Odor after Cleansing No -Primary Dressing Applied Aquacel Extra -Other Dressing PurPly -Primary Dressing Covered/Secured with -Other Covering DryMax Absorbant pads -Aquacel Extra 1 -Promogran -Promogran Jennifer Matter Bilateral -Multi-Layered Wrap Application Unna Boot - Bilateral ($) -Unna Boots (Bilat) ($) 1 -Other DryMax abdorbant pads Treatment Response Pain Scale: 0-10 Numeric Is Patient Pain Free? Yes WC - Visit Discharge Discharge Condition Stable Ambulatory Status Ambulatory Transportation Private Auto Medication Reconcilliation completed & provided to patient/care provider Clinical Summary of Care Provided Notes: Wound debrided: Left Lower extremity Type of Debridement: Excisional debridement Anesthesia Used: 4% Lidocaine Solution Depth: Down to and including healthy tissue, in the subcutaneous layer Percentage of wound debrided: 100 Instrument Used: 3mm curette Tissue Removed: Slough and devitalized tissue Severity: Fat Layer Exposed Amount of bleeding with debridement: Mild Bleeding Controlled with: Pressure Patient tolerated procedure well Assessment/Plan Active Problems Obesity (BMI 30-39.9) (Chronic) Ulcer of left lower extremity with fat layer exposed (Chronic) Type 2 diabetes mellitus (Chronic) Lymphedema (Chronic) Assessment: Nonhealing bilateral lower extremity ulcers, left greater than right. Significant left eschar to left leg ( lateral ). Poorly controlled diabetes mellitus. Chronic bilateral lower extremity edema. Plan: Debridement done as documented above, procedure was well-tolerated. Initial appliacation of Purapply done using 100% of product. Moistened with saline and adaptic touch over top. Secured with steristrips. Leave in place x 1 week. Unaboot for edema management. Change on Thursday, Thursday and then follow- up in the wound center on . Moisturize adequately. Optimal diabetes management recommended. Strongly advised to elevate lower extremities when seated and in bed. Advised to use his pumps everyday (2 -3 x daily )Increase protein intake, vitamin C and zinc. His questions were answered and he was advised to call with any further questions or concerns. Follow-up in 1 week. This note was generated with [employer] software. It may contain incorrect words, spelling, and punctuation that were not noted in checking the note before signing. [id number]: [id number] Skin sub graft trnk/arm/leg
[2020-08-23 10:32] VITALS: BP 115/58; PULSE 93; RESP 20; TEMP 36.6; BMI 41.5
--- NOTE | 2020-08-23 12:36 | PCM.WC.PN ---
History of Present Illness Date of Service: 08/23/20 Chief Complaint: Nonhealing bilateral leg ulcers History of Wound: Mr. Garcia is a 64-year-old who was referred to the wound center due to nonhealing bilateral leg ulcers. Had presented to the emergency room at [facility] on the 05 of January due to significant bilateral lower extremity pain and redness. Managed for bilateral leg cellulitis. Discharged on the . Ulcers have been managed at home by home health. Was on Omnicef at discharge. Still reports significant predominantly left lower extremity pain. Edema is persistent. History of diabetes mellitus type 2 which is not well controlled, fasting blood glucose this morning said to be 178. He denies chills, fever, nausea or vomiting. Subjective Subjective: He denies any new concerns. Has an appointment with dermatology and his PCP on Thursday. Has had one application of pure apply. Objective Data Objective Data Vital Signs: Vital Signs Temp Pulse Resp BP Pulse Ox 97.9 F 93 20 H 115/58 L 97 08/23/20 10:32 08/23/20 10:32 08/23/20 10:32 08/23/20 10:32 07/26/20 00:25 Oxygen Delivery Method Room Air Weight: 255 lb Body Mass Index (BMI) 41.5 Finger Stick Blood Glucose 172 Exam Physical Exam Const alert, oriented x3 and no apparent distress General Appearance: cooperative and comfortable HEENT normocephalic and head/scalp atraumatic Head and Scalp: normal to inspection, normocephalic and atraumatic Eyes EOMs intact bilaterally Neck full ROM and supple General: normal visual inspection Resp normal respiratory effort and normal air movement Effort and Inspection: able to speak in complete sentences Extremity General Extremity: edema Skin Wounds: wounds noted Psych mental status grossly normal Appearance: grossly normal Assessment and Debridement #1- R LATERAL LE: Post-Debridement Measurements/Treatment - Nurse 1 - General Ulcer Assessment Start: 07/26/20 09:25 Freq: Status: Active Protocol: [place] Activity Type Activity Date Activity User E-Sign Co-Sign Detail Recorded Client Recorded Date Recorded By Document 08/23/20 10:32 DL [id number] 08/23/20 10:34 DL 08/23/20 10:32 - Today's Visit Information Type of service Follow-up Visit (Physician/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 ) Arrival Mode Ambulatory Transfer Assistance None Patient Identification Verified (Name & Yes ) Patient Requires Transmission-Based No Precautions Finger Stick Blood Sugar(mg/dl) (if 126 indicated): Blood Sugar Stated by Patient Height and Weight Body Mass Index (BMI) 41.5 BMI Classification Obese Vital Signs Temperature (97.8 F-99.1 F) 97.9 F Temperature Source Temporal Pulse Rate (60-100) 93 Pulse Location Monitor Respiratory Rate (12-18) 20 H Respiratory rate source Observation Blood Pressure (90/60-120/80) 115/58 L Blood Pressure Mean (mm Hg) 77 Source Monitor History Since Last Visit- (Skip if this is Patient's initial visit) Have you changed medications since your No last visit? Any new allergies or adverse reactions No Had a fall/change in ADL's that may No increase risk of falls Signs or symptoms of abuse and/or No neglect since last visit Have you been in the hospital since your No last visit? Has dressing in place as prescribed Yes Has compression in place as prescribed Yes Experienced any changes in pain level or Yes management Pain Scale: 0-10 Numeric Is Patient Pain Free? Yes WC - Nurse 2 - General Ulcer CM Notes Start: 07/26/20 09:25 Freq: Status: Active Protocol: Activity Type Activity Date Activity User E-Sign Co-Sign Detail Recorded Client Recorded Date Recorded By Document 08/23/20 11:19 MW [id number] 08/23/20 11:20 MW 08/23/20 11:19 Wound Center Nurse 2 #2- Left lateral le -Time 11:19 -Correct Patient Yes -Correct Side, Site, Position Yes -Correct Procedure Yes -Procedure Performed Yes -Type of Procedure Debridement -Clinical Debridement Subcutaneous -Tissue Removed Subcutaneous -Post Debridement (cm) - Length 2.8 -Post Debridement (cm) - Width 0.8 -Post Debridement (cm) - Depth 0.1 -Total Square (Post) (cm) 2.24 -Area of Debridement (cm) - Length 2.8 -Area of Debridement (cm) - Width 0.8 -Total Square (Area) (cm) 2.24 -Tunneling No -Undermining/Tunneling No -Circular Undermining No -Wound/Ulcer Outcome Not Healed -Ulcer Cleansing Rinsed/ Irrigated with Saline -Foul Odor after Cleansing No -Bioengineered Tissue Yes -Type of Bioengineered Tissue PuraPly AM -Expiration Date 02/04/22 -Product Lot Number [id number] -Percent Used 100 -Lot number of Saline Used [id number] -Bleeding Controlled with Pressure -Offloading No -Treatment Response Procedure Tolerated Well -Debridement - Subq, 1st 20sq cm No -Apply Skin Sub - 1st 25 sq cm - Legs 1 -PuraPly AM (per sq cm) 4 Pain Scale: 0-10 Numeric Is Patient Pain Free? Yes - Nurse 3 - General Ulcer D/C NN Start: 07/26/20 09:25 Freq: Status: Active Protocol: Activity Type Activity Date Activity User E-Sign Co-Sign Detail Recorded Client Recorded Date Recorded By Document 08/23/20 11:34 DL [id number] 08/23/20 11:48 DL 08/23/20 11:34 Wound Care Nurse 3 #2- Left lateral le -Foul Odor after Cleansing No -Other Dressing PurPlyabd -Other Covering abd Bilateral -Multi-Layered Wrap Application Unna Boot - Bilateral ($) -Unna Boots (Bilat) ($) 1 Treatment Response Procedure Tolerated Well Pain Scale: 0-10 Numeric Is Patient Pain Free? Yes - Visit Discharge Discharge Condition Stable Ambulatory Status Ambulatory Transportation Private Auto #2- Left lateral le: Post-Debridement Measurements/Treatment - Nurse 1 - General Ulcer Assessment Start: 07/26/20 09:25 Freq: Status: Active Protocol: [place] Activity Type Activity Date Activity User E-Sign Co-Sign Detail Recorded Client Recorded Date Recorded By Document 08/23/20 10:32 DL [id number] 08/23/20 10:34 DL 08/23/20 10:32 - Today's Visit Information Type of service Follow-up Visit (Physician/PORK 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 ) Arrival Mode Ambulatory Transfer Assistance None Patient Identification Verified (Name & Yes ) Patient Requires Transmission-Based No Precautions Finger Stick Blood Sugar(mg/dl) (if 126 indicated): Blood Sugar Stated by Patient Height and Weight Body Mass Index (BMI) 41.5 BMI Classification Obese Vital Signs Temperature (97.8 F-99.1 F) 97.9 F Temperature Source Temporal Pulse Rate (60-100) 93 Pulse Location Monitor Respiratory Rate (12-18) 20 H Respiratory rate source Observation Blood Pressure (90/60-120/80) 115/58 L Blood Pressure Mean (mm Hg) 77 Source Monitor History Since Last Visit- (Skip if this is Patient's initial visit) Have you changed medications since your No last visit? Any new allergies or adverse reactions No Had a fall/change in ADL's that may No increase risk of falls Signs or symptoms of abuse and/or No neglect since last visit Have you been in the hospital since your No last visit? Has dressing in place as prescribed Yes Has compression in place as prescribed Yes Experienced any changes in pain level or Yes management Pain Scale: 0-10 Numeric Is Patient Pain Free? Yes NATHALIE - Nurse 2 - General Ulcer CM Notes Start: 07/26/20 09:25 Freq: Status: Active Protocol: Activity Type Activity Date Activity User E-Sign Co-Sign Detail Recorded Client Recorded Date Recorded By Document 08/23/20 11:19 MW [id number] 08/23/20 11:20 MW 08/23/20 11:19 Wound Center Nurse 2 #2- Left lateral le -Time 11:19 -Correct Patient Yes -Correct Side, Site, Position Yes -Correct Procedure Yes -Procedure Performed Yes -Type of Procedure Debridement -Clinical Debridement Subcutaneous -Tissue Removed Subcutaneous -Post Debridement (cm) - Length 2.8 -Post Debridement (cm) - Width 0.8 -Post Debridement (cm) - Depth 0.1 -Total Square (Post) (cm) 2.24 -Area of Debridement (cm) - Length 2.8 -Area of Debridement (cm) - Width 0.8 -Total Square (Area) (cm) 2.24 -Tunneling No -Undermining/Tunneling No -Circular Undermining No -Wound/Ulcer Outcome Not Healed -Ulcer Cleansing Rinsed/ Irrigated with Saline -Foul Odor after Cleansing No -Bioengineered Tissue Yes -Type of Bioengineered Tissue PuraPly AM -Expiration Date 02/04/22 -Product Lot Number [id number] -Percent Used 100 -Lot number of Saline Used [id number] -Bleeding Controlled with Pressure -Offloading No -Treatment Response Procedure Tolerated Well -Debridement - Subq, 1st 20sq cm No -Apply Skin Sub - 1st 25 sq cm - Legs 1 -PuraPly AM (per sq cm) 4 Pain Scale: 0-10 Numeric Is Patient Pain Free? Yes NATHALIE - Nurse 3 - General Ulcer D/C NN Start: 07/26/20 09:25 Freq: Status: Active Protocol: Activity Type Activity Date Activity User E-Sign Co-Sign Detail Recorded Client Recorded Date Recorded By Document 08/23/20 11:34 DL [id number] 08/23/20 11:48 DL 08/23/20 11:34 Wound Care Nurse 3 #2- Left lateral le -Foul Odor after Cleansing No -Other Dressing PurPlyabd -Other Covering abd Bilateral -Multi-Layered Wrap Application Unna Boot - Bilateral ($) -Unna Boots (Bilat) ($) 1 Treatment Response Procedure Tolerated Well Pain Scale: 0-10 Numeric Is Patient Pain Free? Yes WC - Visit Discharge Discharge Condition Stable Ambulatory Status Ambulatory Transportation Private Auto Wound Debrided: Left lower extremity (lateral) Type of Debridement: Excisional debridement Anesthesia Used: 4% Lidocaine Solution Depth: Down to and including healthy tissue and in the subcutaneous layer Percentage of Wound Debrided: 100 Instrument Used: 3mm curette Tissue Removed: Slough and devitalized tissue Severity: Fat Layer Exposed Amt of Bleeding w/Debridement: Mild Bleeding Controlled with: Pressure Patient Tolerated Procedure: Patient tolerated procedure well #3 Left 4th Toe: Post-Debridement Measurements/Treatment - Nurse 1 - General Ulcer Assessment Start: 07/26/20 09:25 Freq: Status: Active Protocol: WC.LOWEXDeion Activity Type Activity Date Activity User E-Sign Co-Sign Detail Recorded Client Recorded Date Recorded By Document 08/23/20 10:32 DL [id number] 08/23/20 10:34 DL 08/23/20 10:32 - Today's Visit Information Type of service Follow-up Visit (Physician/PORK 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 ) Arrival Mode Ambulatory Transfer Assistance None Patient Identification Verified (Name & Yes ) Patient Requires Transmission-Based No Precautions Finger Stick Blood Sugar(mg/dl) (if 126 indicated): Blood Sugar Stated by Patient Height and Weight Body Mass Index (BMI) 41.5 BMI Classification Obese Vital Signs Temperature (97.8 F-99.1 F) 97.9 F Temperature Source Temporal Pulse Rate (60-100) 93 Pulse Location Monitor Respiratory Rate (12-18) 20 H Respiratory rate source Observation Blood Pressure (90/60-120/80) 115/58 L Blood Pressure Mean (mm Hg) 77 Source Monitor History Since Last Visit- (Skip if this is Patient's initial visit) Have you changed medications since your No last visit? Any new allergies or adverse reactions No Had a fall/change in ADL's that may No increase risk of falls Signs or symptoms of abuse and/or No neglect since last visit Have you been in the hospital since your No last visit? Has dressing in place as prescribed Yes Has compression in place as prescribed Yes Experienced any changes in pain level or Yes management Pain Scale: 0-10 Numeric Is Patient Pain Free? Yes WC - Nurse 2 - General Ulcer CM Notes Start: 07/26/20 09:25 Freq: Status: Active Protocol: Activity Type Activity Date Activity User E-Sign Co-Sign Detail Recorded Client Recorded Date Recorded By Document 08/23/20 11:19 MW [id number] 08/23/20 11:20 MW 08/23/20 11:19 Wound Center Nurse 2 #2- Left lateral le -Time 11:19 -Correct Patient Yes -Correct Side, Site, Position Yes -Correct Procedure Yes -Procedure Performed Yes -Type of Procedure Debridement -Clinical Debridement Subcutaneous -Tissue Removed Subcutaneous -Post Debridement (cm) - Length 2.8 -Post Debridement (cm) - Width 0.8 -Post Debridement (cm) - Depth 0.1 -Total Square (Post) (cm) 2.24 -Area of Debridement (cm) - Length 2.8 -Area of Debridement (cm) - Width 0.8 -Total Square (Area) (cm) 2.24 -Tunneling No -Undermining/Tunneling No -Circular Undermining No -Wound/Ulcer Outcome Not Healed -Ulcer Cleansing Rinsed/ Irrigated with Saline -Foul Odor after Cleansing No -Bioengineered Tissue Yes -Type of Bioengineered Tissue PuraPly AM -Expiration Date 02/04/22 -Product Lot Number [id number] -Percent Used 100 -Lot number of Saline Used [id number] -Bleeding Controlled with Pressure -Offloading No -Treatment Response Procedure Tolerated Well -Debridement - Subq, 1st 20sq cm No -Apply Skin Sub - 1st 25 sq cm - Legs 1 -PuraPly AM (per sq cm) 4 Pain Scale: 0-10 Numeric Is Patient Pain Free? Yes WC - Nurse 3 - General Ulcer D/C NN Start: 07/26/20 09:25 Freq: Status: Active Protocol: Activity Type Activity Date Activity User E-Sign Co-Sign Detail Recorded Client Recorded Date Recorded By Document 04/29/21 11:34 DL [id number] 08/23/20 11:48 DL 08/23/20 11:34 Wound Care Nurse 3 #2- Left lateral le -Foul Odor after Cleansing No -Other Dressing PurPlyabd -Other Covering abd Bilateral -Multi-Layered Wrap Application Unna Boot - Bilateral ($) -Unna Boots (Bilat) ($) 1 Treatment Response Procedure Tolerated Well Pain Scale: 0-10 Numeric Is Patient Pain Free? Yes WC - Visit Discharge Discharge Condition Stable Ambulatory Status Ambulatory Transportation Private Auto Assessment & Plan Assessment/Plan (1) Ulcer of left lower extremity with fat layer exposed: Status: Chronic Code(s): L97.922 - Non-pressure chronic ulcer of unspecified part of left lower leg with fat layer exposed Plan: Debridement done as documented above, procedure was well-tolerated. 2nd application of Purapply done using 100% of product. Moistened with saline and adaptic touch over top. Secured with steri strips. Leave in place x 1 week. Unnaboot for edema management. Change on Thursday, Thursday and then follow-up in the wound center on . Moisturize adequately. Optimal diabetes management recommended. Strongly advised to elevate lower extremities when seated and in bed. Advised to use his pumps everyday (2 -3 x daily )Increase protein intake, vitamin C and zinc. His questions were answered and he was advised to call with any further questions or concerns. Follow-up in 1 week. (2) Stasis dermatitis of both legs: Status: Chronic Code(s): I87.2 - Venous insufficiency (chronic) (peripheral) Plan: Plan as above (3) Bilateral lower extremity edema: Status: Chronic Code(s): R60.0 - Localized edema Plan: Plan as above (4) Lymphedema: Status: Chronic Code(s): I89.0 - Lymphedema, not elsewhere classified Plan: Plan as above (5) Type 2 diabetes mellitus: Status: Chronic Code(s): E11.9 - Type 2 diabetes mellitus without complications Qualifiers: Qualified Code(s): Z79.4 - assisted (current) use of insulin Plan: Plan as above This note was generated with [employer] software. It may contain incorrect words, spelling, and punctuation that were not noted in checking the note before signing. Charges/Coding 150xxx-152xx: 49879 Skin sub graft trnk/arm/leg
== END 2020-08-24 23:59 ==
LOC: WC 10:15
PROVIDERS: PCP Family Medicine; Referring Provider Family Medicine; Visit Provider Internal Medicine
DX: L97.922 Non-pressure chronic ulcer of unspecified part of left lower leg with fat layer exposed (principal); L97.912 Non-pressure chronic ulcer of unspecified part of right lower leg with fat layer exposed; E11.65 Type 2 diabetes mellitus with hyperglycemia; I89.0 Lymphedema, not elsewhere classified; E66.9 Obesity, unspecified; I87.2 Venous insufficiency (chronic) (peripheral); R60.0 Localized edema; Z79.4 Long term (current) use of insulin; Z68.30 Body mass index [BMI] 30.0-30.9, adult
CPT/HCPCS: 11042; 15271; 29580; Q4196

== ENCOUNTER → 2020-09-03 08:47 | Outpatient (CLI) | payer MEDICARE, SELFPAY ==
[2020-08-30 09:06] VITALS: BMI 41.5
[2020-09-03 09:58] LABS: Hematocrit 35.7 % (40-54); Hemoglobin 10.6 g/dL (13.0-16.5); Mean Corp Hgb Conc 29.7 g/dL (32-36); Mean Corpuscular Hgb 27.7 pg (27.0-32.0); Mean Corpuscular Volume 93.5 fL (80-94); Mean Platelet Vol. 9.6 fl (6.2-12.0); Platelet Count 241 K/mm3 (150-450); RBC Distribution Width CV 15.8 % (11.6-14.6); RBC Distribution Width SD 53.6 fl (35.1-43.9); Red Blood Count 3.82 M/mm3 (4.6-6.2); White Blood Count 7.8 K/mm3 (4.4-11.0)
[2020-09-03 11:13] LABS: ALB/GLOB Ratio 0.6 RATIO (0.9-2.4); AST(SGOT) 17 U/L (15-37); Alanine Aminotransfer ALT/SGPT 16 U/L (16-61); Albumin, Serum 2.8 g/dL (3.2-5.0); Alkaline Phosphatase 111 U/L (45-117); Anion Gap 4 (5-15); BUN 20 mg/dL (7-18); BUN/Creat Ratio 17.4 RATIO (10-20); Calcium,Total 8.8 mg/dL (8.5-10.1); Chloride 100 mmol/L (98-107); Creatinine, Serum 1.15 mg/dL (0.70-1.30); EST Glomerular Filtration Rate 67 mL/min (>60); Est Glom Filt Rate - Afr Amer 82 mL/min (>60); Globulin 4.6 g/dL (2.2-4.2); Glucose 157 mg/dL (74-106); Potassium 4.7 mmol/L (3.5-5.1); Protein, Total 7.4 g/dL (6.4-8.2); Sodium Level 132 mmol/L (136-145)
[2020-09-04 08:09] LABS: HEPATITIS B SURFACE AG Negative (Negative); Hepatitis A AB, Total Negative (Negative); Hepatitis A IgM Antibody Negative (Negative); Hepatitis B Core AB IgM Negative (Negative); Hepatitis B Core Ab Total Negative (Negative); Hepatitis C Ab <0.1 s/co ratio (0.0-0.9)
[2020-09-04 15:49] LABS: Hep B Surface Antibodies Non Reactive (.)
[2020-09-06 04:12] LABS: QNTFERON TB Mitogen Value > 10.00 IU/mL (.); QNTFERON TB Nil Value 0 IU/mL (.); QNTFERON TB1+ Ag Value 0 IU/mL (.); QNTFERON TB2+ Ag Value 0 IU/mL (.)
[2020-09-06 15:28] LABS: QNTIFERON TB Positive Criteria Negative (Negative)
== END ==
PROVIDERS: PCP Family Medicine; Referring Provider Dermatology Pediatric Dermatology; Visit Provider Dermatology Pediatric Dermatology
DX: L40.0 Psoriasis vulgaris (principal)
CPT/HCPCS: 36415; 80053; 85027; 86480; 86704; 86705; 86706; 86708; 86709; 86803; 87340

== ENCOUNTER 2020-09-17 11:00 | Outpatient (RCR) | payer MEDICARE, SELFPAY ==
[2020-08-25 00:26] VITALS: BP 115/58; PULSE 93; RESP 20; TEMP 36.6; O2SAT 97
[2020-08-30 09:06] VITALS: BP 160/73; PULSE 86; RESP 20; TEMP 36.3; BMI 41.5
--- NOTE | 2020-08-30 12:23 | PCM.WC.PN ---
History of Present Illness Date of Service: 08/30/20 Chief Complaint: Nonhealing bilateral leg ulcers History of Wound: Mr. Garcia is a 64-year-old who was referred to the wound center due to nonhealing bilateral leg ulcers. Had presented to the emergency room at [facility] on the 05 of January due to significant bilateral lower extremity pain and redness. Managed for bilateral leg cellulitis. Discharged on the . Ulcers have been managed at home by home health. Was on Omnicef at discharge. Still reports significant predominantly left lower extremity pain. Edema is persistent. History of diabetes mellitus type 2 which is not well controlled, fasting blood glucose this morning said to be 178. He denies chills, fever, nausea or vomiting. Subjective Subjective: He denies any new concerns. Had an appointment with dermatology on Thursday. Has had 2 applications of pure apply. Objective Data Objective Data Vital Signs: Vital Signs Temp Pulse Resp BP Pulse Ox 97.3 F L 86 20 H 160/73 H 97 08/30/20 09:06 08/30/20 09:06 08/30/20 09:06 08/30/20 09:06 08/25/20 00:26 Weight: 255 lb Body Mass Index (BMI) 41.5 Finger Stick Blood Glucose 172 Assessment & Plan Assessment/Plan (1) Ulcer of left lower extremity with fat layer exposed: (2) Lymphedema: (3) Type 2 diabetes mellitus: QUALIFIERS: Qualified Code(s): Z79.4 - long-term (current) use of insulin PLAN: Debridement done as documented above, procedure was well-tolerated. Next application of Nushield done using 100% of product. Moistened with saline and adaptic touch over top. Secured with steri strips. Leave in place x 1 week. Unnaboot for edema management. Switch to Pro4 at next visit. Change on Thursday and follow up on Thursday. Moisturize adequately. Optimal diabetes management recommended. Strongly advised to elevate lower extremities when seated and in bed. Advised to use his pumps everyday (2 -3 x daily )Increase protein intake, vitamin C and zinc. His questions were answered and he was advised to call with any further questions or concerns. Follow up on Thursday with Alexa Ann NP and in 2 weeks with me. This note was generated with [employer] software. It may contain incorrect words, spelling, and punctuation that were not noted in checking the note before signing. Charges/Coding Procedures Integumentary 150xxx-152xx: 70778 Skin sub graft trnk/arm/leg Physical Exam Const alert, oriented x3 and no apparent distress General Appearance: cooperative and comfortable HEENT normocephalic and head/scalp atraumatic Head and Scalp: normal to inspection, normocephalic and atraumatic Eyes EOMs intact bilaterally Neck full ROM and supple General: normal visual inspection Resp normal respiratory effort and normal air movement Effort and Inspection: able to speak in complete sentences Extremity General Extremity: edema Skin Wounds: wounds noted Debridement Note Debridement Note Post-Debridement Measurements and Additional Note: Post-Debridement Measurements/Treatment - Nurse 1 - General Ulcer Assessment Start: 08/30/20 09:06 Freq: Status: Active Protocol: KJEXDeion Activity Type Activity Date Activity User E-Sign Co-Sign Detail Recorded Client Recorded Date Recorded By Document 08/30/20 09:06 RAÚL [id number] 08/30/20 09:11 RAÚL 08/30/20 09:06 - Today's Visit Information Type of service Follow-up Visit (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/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 ) Arrival Mode Ambulatory Transfer Assistance None Patient Identification Verified (Name & Yes ) Height and Weight Body Mass Index (BMI) 41.5 BMI Classification Obese Vital Signs Temperature (97.8 F-99.1 F) 97.3 F L Temperature Source Temporal Pulse Rate (60-100) 86 Pulse Location Monitor Respiratory Rate (12-18) 20 H Respiratory rate source Observation Blood Pressure (90/60-120/80) 160/73 H Blood Pressure Mean (mm Hg) 102 Source Monitor Position Semi-Fowlers Blood Pressure Location Left Arm History Since Last Visit- (Skip if this is Patient's initial visit) Have you changed medications since your No last visit? Any new allergies or adverse reactions No Had a fall/change in ADL's that may No increase risk of falls Signs or symptoms of abuse and/or No neglect since last visit Has dressing in place as prescribed Yes Has compression in place as prescribed Yes Has offloadiing in place as prescribed N/A Experienced any changes in pain level or No management Pain Scale: 0-10 Numeric Is Patient Pain Free? Yes - Nurse 1 - General Ulcer Measurement Start: 08/30/20 09:06 Freq: Status: Active Protocol: Activity Type Activity Date Activity User E-Sign Co-Sign Detail Recorded Client Recorded Date Recorded By Document 08/30/20 09:06 KR [id number] 08/30/20 09:11 KR 08/30/20 09:06 Wound Center Nurse 1 #2- Left lateral le -Current Size (cm) - Length 2.2 -Current Size (cm) - Width 0.9 -Current Size (cm) - Depth 1 -Total Square Cm 1.98 -Photo Taken No -Exudate Amt Medium -Exudate Type Serosanguineous -Wound Margin Indistinct, Non -Visible -Granulation Amt None Present (0 %) -Necrosis Amt Large (67-100%) -Necrotic Tissue Type Adherent Slough -Structure Exposed N/A -Texture (Reina-wound Skin Appearance) Excoriation, Scarring -Moisture (Reina-wound Skin Appearance) Weeping -Color (Reina-wound Skin Appearance) Erythema,Rubor -Temperature (Reina-wound Skin No Abnormality Appearance) (Pt Warm) -Tenderness on Palpation (Reina-wound No Skin Appearance) -Ulcer Cleansing Wound Cleanser -Foul Odor after Cleansing No -Anesthetic Used 4% Lidocaine Solution Right Calf (cm) 47.3 Right Ankle (cm) 35.2 Left Calf (cm) 47.5 Left Ankle (cm) 31 WC - Nurse 2 - General Ulcer CM Notes Start: 08/30/20 09:06 Freq: Status: Active Protocol: Activity Type Activity Date Activity User E-Sign Co-Sign Detail Recorded Client Recorded Date Recorded By Document 08/30/20 09:33 MW [id number] 08/30/20 09:45 MW 08/30/20 09:33 Wound Center Nurse 2 #2- Left lateral le -Time 09:36 -Correct Patient Yes -Correct Side, Site, Position Yes -Correct Procedure Yes -Procedure Performed Yes -Type of Procedure Debridement -Clinical Debridement Subcutaneous -Tissue Removed Subcutaneous -Post Debridement (cm) - Length 3.3 -Post Debridement (cm) - Width 4.0 -Post Debridement (cm) - Depth 0.1 -Total Square (Post) (cm) 13.20 -Area of Debridement (cm) - Length 3.3 -Area of Debridement (cm) - Width 4.0 -Total Square (Area) (cm) 13.20 -Tunneling No -Undermining/Tunneling No -Circular Undermining No -Wound/Ulcer Outcome Not Healed -Ulcer Cleansing Rinsed/ Irrigated with Saline -Foul Odor after Cleansing No -Bioengineered Tissue Yes -Type of Bioengineered Tissue NuShield -Expiration Date 04/21/24 -Product Lot Number [id number] -Percent Used 100 -Lot number of Saline Used [id number] -Bleeding Controlled with Pressure -Offloading No -Treatment Response Procedure Tolerated Well -Debridement - Subq, 1st 20sq cm No -Apply Skin Sub - 1st 25 sq cm - Legs 1 -NuShield (per sq cm) 12 Pain Scale: 0-10 Numeric Is Patient Pain Free? Yes Wound debrided: Left lower extremity cluster Type of Debridement: Excisional debridement Anesthesia Used: 4% Lidocaine Solution Depth: Down to and including healthy tissue and in the subcutaneous layer Percentage of wound debrided: 100 Instrument Used: 5mm curette Tissue Removed: Slough and devitalized tissue Severity: Fat Layer Exposed Amount of bleeding with debridement: Mild Bleeding Controlled with: Pressure Patient tolerated procedure: Patient tolerated procedure well
[2020-09-04 13:42] VITALS: BP 131/71; PULSE 95; RESP 16; TEMP 36.8; BMI 41.5
--- NOTE | 2020-09-04 15:10 | PN.PCM_ITS ---
History of Present Illness Date of Service: 09/04/20 Chief Complaint: Nonhealing bilateral leg ulcers History of Wound: Mr. Garcia is a 64-year-old who was referred to the wound center due to nonhealing bilateral leg ulcers. Had presented to the emergency room at [facility] on the 05 of January due to significant bilateral lower extremity pain and redness. Managed for bilateral leg cellulitis. Discharged on the . Ulcers have been managed at home by home health. Was on Omnicef at discharge. Still reports significant predominantly left lower extremity pain. Edema is persistent. History of diabetes mellitus type 2 which is not well controlled, fasting blood glucose this morning said to be 178. He denies chills, fever, nausea or vomiting. Progress of Wound: Left lateral lower leg ulcer is stable. Very sensitive to palpation. Bilateral lower legs are extremely excoriated and actively weeping with areas of sloughing. 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 Patient tolerated procedure well. Bilateral lower legs edematous, erythematous, weeping. Unable to find any vascular studies. Will order arterial and venous studies to further evaluate his leg pain and edema. Wound care- Will hold Puraply this week. Start Aquacel to the left lateral leg ulcer and cover with either Exelsap or Kerramax absorbent dressing daily and prn. He will be able to wash his legs and ulcer daily with soap and water before he does his dressing changes. On the sloughing skin, will have his start to use Triamcinolome cream daily that he already has at home. This should help the sloughing skin skin. He will wrap his legs with Kerlix to help absorb his weeping legs and then use single layer tubigrip until vascular studies are performed. He may continue to use his lymphedema pumps at home as prescribed. Follow up one week. Charges/Coding Visit Charges Office Visits / Consults: 02351 OV L3 Est (25 modifer) Procedures Integumentary [id number]: [id number] June subq tissue 20 sq cm/< Multi Select Codes Addendum Addendum: 48 minutes total spent with patient, planning care and documenting Physical Exam Const alert and oriented x3 HEENT normocephalic Head and Scalp: atraumatic Eyes PERRL Lymph Lymphatic Narrative: Bilateral lower legs with edema and lymphedema Resp normal respiratory effort and clear to auscultation bilaterally Cardio regular rate and regular rhythm GI non-tender Palpation: soft Extremity no calf tenderness Skin Wound Narrative: Left lateral lower leg ulcer stable. Bilateral lower legs are excoriated with active weeping and areas of sloughing skin. Neuro CN's II-XII intact bilaterally Debridement Note Debridement Note Post-Debridement Measurements and Additional Note: Post-Debridement Measurements/Treatment - Nurse 1 - General Ulcer Assessment Start: 08/30/20 09:06 Freq: Status: Active Protocol: [place] Activity Type Activity Date Activity User E-Sign Co-Sign Detail Recorded Client Recorded Date Recorded By Document 08/30/20 09:06 [id number] 08/30/20 09:11 KR Document 09/04/20 13:42 [facility] [id number] 09/04/20 13:44 [facility] 08/30/20 09/04/20 09:06 13:42 - Today's Visit Information Type of service Follow-up Visit Follow-up Visit (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 (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 ) ) Arrival Mode Ambulatory Ambulatory,Cane Transfer Assistance None None Patient Identification Verified (Name & Yes Yes ) Patient Requires Transmission-Based No Precautions Height and Weight Body Mass Index (BMI) 41.5 41.5 BMI Classification Obese Obese Vital Signs Temperature (97.8 F-99.1 F) 97.3 F L 98.3 F Temperature Source Temporal Temporal Pulse Rate (60-100) 86 95 Pulse Location Monitor Monitor Respiratory Rate (12-18) 20 H 16 Respiratory rate source Observation Observation Oxygen Delivery Method Room Air Blood Pressure (90/60-120/80) 160/73 H 131/71 H Blood Pressure Mean (mm Hg) 102 91 Source Monitor Monitor Position Semi-Fowlers Sitting Blood Pressure Location Left Arm Left Arm History Since Last Visit- (Skip if this is Patient's initial visit) Have you changed medications since your No No last visit? Any new allergies or adverse reactions No No Had a fall/change in ADL's that may No No increase risk of falls Signs or symptoms of abuse and/or No No neglect since last visit Have you been in the hospital since your No last visit? Has dressing in place as prescribed Yes Yes Has compression in place as prescribed Yes Has offloadiing in place as prescribed N/A Experienced any changes in pain level or No management Left Footwear Regular Shoe Right Footwear Regular Shoe Pain Scale: 0-10 Numeric Is Patient Pain Free? Yes Yes WC - Nurse 1 - General Ulcer Measurement Start: 08/30/20 09:06 Freq: Status: Active Protocol: Activity Type Activity Date Activity User E-Sign Co-Sign Detail Recorded Client Recorded Date Recorded By Document 08/30/20 09:06 KR [id number] 08/30/20 09:11 KR Document 09/04/20 13:42 [facility] [id number] 09/04/20 13:44 [facility] 08/30/20 09/04/20 09:06 13:42 Wound Center Nurse 1 #2- Left lateral le -Combined with other wound No -Current Size (cm) - Length 2.2 2.1 -Current Size (cm) - Width 0.9 1.2 -Current Size (cm) - Depth 1 0.1 -Total Square Cm 1.98 2.52 -Photo Taken No No -Epithelialization Small 1-33% -Tunneling No -Undermining/Tunneling No -Circular Undermining No -Exudate Amt Medium Medium -Exudate Type Serosanguineous Serosanguineous -Wound Margin Indistinct, Non Flat & Intact -Visible -Granulation Amt None Present (0 Medium (34-66%) %) -Granulation Quality Red -Slough/Fibrin Yes -Necrosis Amt Large (67-100%) Medium (34-66%) -Necrotic Tissue Type Adherent Slough Adherent Slough -Structure Exposed N/A -Texture (Reina-wound Skin Appearance) Excoriation, Assessed, Scarring Scarring -Moisture (Reina-wound Skin Appearance) Weeping Assessed, Maceration, Weeping -Color (Reina-wound Skin Appearance) Erythema,Rubor Assessed, Erythema,Palor -Temperature (Reina-wound Skin No Abnormality No Abnormality Appearance) (Pt Warm) (Pt Warm) -Tenderness on Palpation (Reina-wound No No Skin Appearance) -Ulcer Cleansing Wound Cleanser Rinsed/ Irrigated with Saline -Foul Odor after Cleansing No No -Anesthetic Used 4% Lidocaine 5% Lidocaine Solution Gel Lower Limb Edema Present Yes Right Calf (cm) 47.3 49 Right Ankle (cm) 35.2 35 Left Calf (cm) 47.5 47.5 Left Ankle (cm) 31 31.6 WC - Nurse 2 - General Ulcer CM Notes Start: 08/30/20 09:06 Freq: Status: Active Protocol: Activity Type Activity Date Activity User E-Sign Co-Sign Detail Recorded Client Recorded Date Recorded By Document 08/30/20 09:33 MW [id number] 08/30/20 09:45 MW Document 09/04/20 14:20 [id number] 09/04/20 14:23 08/30/20 09/04/20 09:33 14:20 Wound Center Nurse 2 #2- Left lateral le -Time 09:36 14:20 -Correct Patient Yes Yes -Correct Side, Site, Position Yes Yes -Correct Procedure Yes Yes -Procedure Performed Yes Yes -Type of Procedure Debridement Debridement -Clinical Debridement Subcutaneous Subcutaneous -Tissue Removed Subcutaneous Subcutaneous -Post Debridement (cm) - Length 3.3 3.3 -Post Debridement (cm) - Width 4.0 4 -Post Debridement (cm) - Depth 0.1 0.2 -Total Square (Post) (cm) 13.20 13.2 -Area of Debridement (cm) - Length 3.3 3.3 -Area of Debridement (cm) - Width 4.0 4 -Total Square (Area) (cm) 13.20 13.2 -Tunneling No No -Undermining/Tunneling No No -Circular Undermining No No -Wound/Ulcer Outcome Not Healed Not Healed -Ulcer Cleansing Rinsed/ Rinsed/ Irrigated with Irrigated with Saline Saline -Foul Odor after Cleansing No No -Bioengineered Tissue Yes No -Type of Bioengineered Tissue [facility] -Expiration Date 04/21/24 -Product Lot Number [id number] -Percent Used 100 -Lot number of Saline Used [id number] -Bleeding Controlled with Pressure Pressure -Offloading No No -Treatment Response Procedure Procedure Tolerated Well Tolerated Well -Debridement - Subq, 1st 20sq cm No Yes -Apply Skin Sub - 1st 25 sq cm - Legs 1 -NuShield (per sq cm) 12 Pain Scale: 0-10 Numeric Is Patient Pain Free? Yes Yes - Nurse 3 - General Ulcer D/C NN Start: 08/30/20 09:06 Freq: Status: Active Protocol: Activity Type Activity Date Activity User E-Sign Co-Sign Detail Recorded Client Recorded Date Recorded By Document 08/31/20 07:15 PL [id number] 08/31/20 07:16 PL Document 09/04/20 14:34 [facility] [id number] 09/04/20 14:36 [facility] 08/31/20 09/04/20 07:15 14:34 #2- Left lateral le -Ulcer Cleansing Rinsed/ Irrigated with Saline -Foul Odor after Cleansing No -Primary Dressing Applied Aquacel AG 4x4 -Primary Dressing Covered/Secured with Dry Gauze & Roll Gauze, Secured with Tape,Other -Other Covering abd -Aquacel AG 4x4 1 Wound Care Nurse 3 Bilateral -Multi-Layered Wrap Application Unna Boot - Bilateral ($) -Unna Boots (Bilat) ($) 2 -Tubular Bandage Single Layer -Size of Tubigrip Used Size F -Size F ($) 2 Treatment Response Procedure Tolerated Well Pain Scale: 0-10 Numeric Is Patient Pain Free? Yes WC - Visit Discharge Discharge Condition Stable Ambulatory Status Ambulatory Transportation Private [facility] Facility Type Home Health Wound debrided: lateral lower leg ulcer Laterality: Left Type of Debridement: Excisional debridement Anesthesia Used: 5% Lidocaine Gel Depth: Down to and including healthy tissue and in the subcutaneous layer Percentage of wound debrided: 100 Instrument Used: 3mm curette Tissue Removed: Subcutaneous tissue and slough Severity: Fat Layer Exposed Amount of bleeding with debridement: Mild Bleeding Controlled with: Pressure Patient tolerated procedure: Patient tolerated procedure well
[2020-09-11 14:34] VITALS: BP 126/69; PULSE 88; TEMP 36.2; BMI 41.5
--- NOTE | 2020-09-11 17:00 | PN.PCM_ITS ---
History of Present Illness Date of Service: 09/11/20 Chief Complaint: Nonhealing bilateral leg ulcers History of Wound: Mr. Garcia is a 64-year-old who was referred to the wound center due to nonhealing bilateral leg ulcers. Had presented to the emergency room at [facility] on the 05 of January due to significant bilateral lower extremity pain and redness. Managed for bilateral leg cellulitis. Discharged on the . Ulcers have been managed at home by home health. Was on Omnicef at discharge. Still reports significant predominantly left lower extremity pain. Edema is persistent with weeping, with no improvement with 3M 2layer wraps. History of diabetes mellitus type 2 which is not well controlled. Right leg ulcer has since healed. He denies chills, fever, nausea or vomiting. Progress of Wound: Left lateral lower leg ulcer is stable. Very sensitive to palpation. Bilateral lower legs are less red, there is a decrease in the weeping and improvement with triamcinolone cream. Objective Data Objective Data Vital Signs: Vital Signs Temp Pulse Resp BP Pulse Ox 97.2 F L 88 16 126/69 H 97 09/11/20 14:34 09/11/20 14:34 09/04/20 13:42 09/11/20 14:34 08/25/20 00:26 Oxygen Delivery Method Room Air Weight: 255 lb Body Mass Index (BMI) 41.5 Physical Exam Const alert and oriented x3 General Appearance: cooperative HEENT normocephalic Head and Scalp: atraumatic Eyes PERRL Resp normal respiratory effort Cardio regular rate GI Palpation: soft Extremity General Extremity: edema bilateral lower extremity Details: severe Skin Wound Narrative: Left lateral lower leg/ankle ulcer. Bilateral lower leg edema. Sloughing and excoriation is improved compared to last week. The angry red has decreased, weeping has decreased. Neuro CN's II-XII intact bilaterally Psych Appearance: grossly normal Debridement Note Debridement Note Post-Debridement Measurements and Additional Note: Post-Debridement Measurements/Treatment WC - Nurse 1 - General Ulcer Assessment Start: 08/30/20 09:06 Freq: Status: Active Protocol: [email or web address].LOWEXT Activity Type Activity Date Activity User E-Sign Co-Sign Detail Recorded Client Recorded Date Recorded By Document 08/30/20 09:06 KR [id number] 08/30/20 09:11 KR Document 09/04/20 13:42 [facility] [id number] 09/04/20 13:44 [facility] Document 09/11/20 14:34 KR [id number] 09/11/20 14:36 KR 08/30/20 09/04/20 09/11/20 09:06 13:42 14:34 - Today's Visit Information Type of service Follow-up Visit Follow-up Visit Follow-up 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 (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 (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 (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 WELDER ) ) ) Arrival Mode Ambulatory Ambulatory,Cane Ambulatory Transfer Assistance None None Patient Identification Verified (Name & Yes Yes Yes ) Patient Requires Transmission-Based No Precautions Height and Weight Body Mass Index (BMI) 41.5 41.5 41.5 BMI Classification Obese Obese Obese Vital Signs Temperature (97.8 F-99.1 F) 97.3 F L 98.3 F 97.2 F L Temperature Source Temporal Temporal Temporal Pulse Rate (60-100) 86 95 88 Pulse Location Monitor Monitor Monitor Respiratory Rate (12-18) 20 H 16 Respiratory rate source Observation Observation Oxygen Delivery Method Room Air Blood Pressure (90/60-120/80) 160/73 H 131/71 H 126/69 H Blood Pressure Mean (mm Hg) 102 91 88 Source Monitor Monitor Monitor Position Semi-Fowlers Sitting Semi-Fowlers Blood Pressure Location Left Arm Left Arm Left Arm History Since Last Visit- (Skip if this is Patient's initial visit) Have you changed medications since your No No No last visit? Any new allergies or adverse reactions No No No Had a fall/change in ADL's that may No No No increase risk of falls Signs or symptoms of abuse and/or No No No neglect since last visit Have you been in the hospital since your No No last visit? Has dressing in place as prescribed Yes Yes Yes Has compression in place as prescribed Yes Yes Has offloadiing in place as prescribed N/A N/A Experienced any changes in pain level or No No management Left Footwear Regular Shoe Regular Shoe Right Footwear Regular Shoe Regular Shoe Pain Scale: 0-10 Numeric Is Patient Pain Free? Yes Yes Yes - Nurse 1 - General Ulcer Measurement Start: 08/30/20 09:06 Freq: Status: Active Protocol: Activity Type Activity Date Activity User E-Sign Co-Sign Detail Recorded Client Recorded Date Recorded By Document 08/30/20 09:06 [id number] 08/30/20 09:11 KR Document 09/04/20 13:42 [facility] [id number] 09/04/20 13:44 [facility] Document 09/11/20 14:34 KR [id number] 09/11/20 14:36 KR 08/30/20 09/04/20 09/11/20 09:06 13:42 14:34 Wound Center Nurse 1 #2- Left lateral le cluster -Combined with other wound No -Current Size (cm) - Length 2.2 2.1 3.2 -Current Size (cm) - Width 0.9 1.2 0.4 -Current Size (cm) - Depth 1 0.1 0.1 -Total Square Cm 1.98 2.52 1.28 -Photo Taken No No -Epithelialization Small 1-33% -Tunneling No -Undermining/Tunneling No -Circular Undermining No -Exudate Amt Medium Medium Small -Exudate Type Serosanguineous Serosanguineous Serosanguineous -Wound Margin Indistinct, Non Flat & Intact Distinct, -Visible Outline Attached -Granulation Amt None Present (0 Medium (34-66%) Small (1-33%) %) -Granulation Quality Red Red -Slough/Fibrin Yes -Necrosis Amt Large (67-100%) Medium (34-66%) Small (1-33%) -Necrotic Tissue Type Adherent Slough Adherent Slough Adherent Slough -Structure Exposed N/A -Texture (Reina-wound Skin Appearance) Excoriation, Assessed, Assessed, Scarring Scarring Scarring -Moisture (Reina-wound Skin Appearance) Weeping Assessed, No Abnormality, Maceration, Assessed Weeping -Color (Reina-wound Skin Appearance) Erythema,Rubor Assessed, No Abnormality, Erythema,Palor Assessed -Temperature (Reina-wound Skin No Abnormality No Abnormality No Abnormality Appearance) (Pt Warm) (Pt Warm) (Pt Warm) -Tenderness on Palpation (Reina-wound No No No Skin Appearance) -Ulcer Cleansing Wound Cleanser Rinsed/ Rinsed/ Irrigated with Irrigated with Saline Saline -Foul Odor after Cleansing No No No -Anesthetic Used 4% Lidocaine 5% Lidocaine 4% Lidocaine Solution Gel Solution Lower Limb Edema Present Yes Right Calf (cm) 47.3 49 49.1 Right Ankle (cm) 35.2 35 34.2 Left Calf (cm) 47.5 47.5 49.4 Left Ankle (cm) 31 31.6 34 WC - Nurse 2 - General Ulcer CM Notes Start: 08/30/20 09:06 Freq: Status: Active Protocol: Activity Type Activity Date Activity User E-Sign Co-Sign Detail Recorded Client Recorded Date Recorded By Document 08/30/20 09:33 MW [id number] 08/30/20 09:45 MW Document 09/04/20 14:20 [id number] 09/04/20 14:23 JF Document 09/11/20 15:12 [id number] 09/11/20 15:19 JF 08/30/20 09/04/20 09/11/20 09:33 14:20 15:12 Wound Center Nurse 2 #2- Left lateral le cluster -Time 09:36 14:20 15:13 -Correct Patient Yes Yes Yes -Correct Side, Site, Position Yes Yes Yes -Correct Procedure Yes Yes Yes -Procedure Performed Yes Yes Yes -Type of Procedure Debridement Debridement Debridement -Clinical Debridement Subcutaneous Subcutaneous Subcutaneous -Tissue Removed Subcutaneous Subcutaneous Subcutaneous -Post Debridement (cm) - Length 3.3 3.3 7.3 -Post Debridement (cm) - Width 4.0 4 3 -Post Debridement (cm) - Depth 0.1 0.2 0.2 -Total Square (Post) (cm) 13.20 13.2 21.9 -Area of Debridement (cm) - Length 3.3 3.3 7.3 -Area of Debridement (cm) - Width 4.0 4 3 -Total Square (Area) (cm) 13.20 13.2 21.9 -Tunneling No No No -Undermining/Tunneling No No No -Circular Undermining No No No -Wound/Ulcer Outcome Not Healed Not Healed Not Healed -Ulcer Cleansing Rinsed/ Rinsed/ Rinsed/ Irrigated with Irrigated with Irrigated with Saline Saline Saline -Foul Odor after Cleansing No No No -Bioengineered Tissue Yes No No -Type of Bioengineered Tissue [facility] -Expiration Date 04/21/24 -Product Lot Number [id number] -Percent Used 100 -Lot number of Saline Used [id number] -Bleeding Controlled with Pressure Pressure Pressure -Offloading No No No -Treatment Response Procedure Procedure Procedure Tolerated Well Tolerated Well Tolerated Well -Debridement - Subq, 1st 20sq cm No Yes Yes -Debridement, SubQ, ea addt'l 20sq cm 1 or part thereof -Apply Skin Sub - 1st 25 sq cm - Legs 1 -NuShield (per sq cm) 12 Pain Scale: 0-10 Numeric Is Patient Pain Free? Yes Yes Yes - Nurse 3 - General Ulcer D/C NN Start: 08/30/20 09:06 Freq: Status: Active Protocol: Activity Type Activity Date Activity User E-Sign Co-Sign Detail Recorded Client Recorded Date Recorded By Document 08/31/20 07:15 PL [id number] 08/31/20 07:16 PL Document 09/04/20 14:34 [facility] [id number] 09/04/20 14:36 BM Document 09/11/20 16:40 PL [id number] 09/11/20 16:42 PL 08/31/20 09/04/20 09/11/20 07:15 14:34 16:40 #2- Left lateral le cluster -Ulcer Cleansing Rinsed/ Rinsed/ Irrigated with Irrigated with Saline Saline -Foul Odor after Cleansing No No -Primary Dressing Applied Aquacel AG 4x4 Aquacel AG 4x4 -Other Dressing ABD, Kerlix -Primary Dressing Covered/Secured with Dry Gauze & Secured with Roll Gauze, Tape Secured with Tape,Other -Other Covering abd -Aquacel AG 4x4 1 1 Wound Care Nurse 3 Bilateral -Multi-Layered Wrap Application Unna Boot - Bilateral ($) -Unna Boots (Bilat) ($) 2 -Tubular Bandage Single Layer Single Layer -Size of Tubigrip Used Size F Size F -Size F ($) 2 2 Treatment Response Procedure Tolerated Well Pain Scale: 0-10 Numeric Is Patient Pain Free? Yes Yes - Visit Discharge Discharge Condition Stable Stable Ambulatory Status Ambulatory Ambulatory Transportation Private Auto Private Auto Clinical Summary of Care Provided Yes Facility Type Home Health Wound debrided: Lateral lower leg/ankle ulcer Laterality: Left Type of Debridement: Excisional debridement Anesthesia Used: 5% Lidocaine Gel Depth: Down to and including healthy tissue and in the subcutaneous layer Percentage of wound debrided: 100 Instrument Used: 3mm curette Tissue Removed: Subcutaneous tissue and slough Severity: Fat Layer Exposed Amount of bleeding with debridement: Mild Bleeding Controlled with: Pressure Patient tolerated procedure: Patient tolerated procedure well
--- NOTE | 2020-09-14 09:43 | VDLE_ITS ---
Reason For Study: Edema RIGHT LEFT CFV is compressible, spontaneous, phasic, CFV is compressible, spontaneous, phasic, competent and demonstrates normal competent, and demonstrates normal augmentation. augmentation. FV is compressible, spontaneous, phasic, FV is compressible, spontaneous, phasic, competent and demonstrates normal competent and demonstrates normal augmentation. augmentation. POP V is compressible, spontaneous, phasic, POP V is compressible, spontaneous, phasic, competent and demonstrates normal competent and demonstrates normal augmentation. augmentation. T/P Trunk is compressible. T/P Trunk is compressible. PTV is compressible. PTV is compressible. RT PerV is compressible. LT PerV is compressible. SFJ is competent and measures 0.87 x 1.09 cm. SFJ is competent and measures 1.13 x 1.26 cm. GSV proximal thigh measures 0.60 x 0.54 cm. GSV proximal thigh measures 0.51 x 0.50 cm. GSV above knee is competent. GSV above knee is competent. GSV at knee measures 0.52 x 0.55 cm. GSV at knee measures 0.40 x 0.38 cm. GSV below knee is INCOMPETENT for greater GSV below knee is INCOMPETENT for greater than 0.5 seconds. than 0.5 seconds. ASV from junction is INCOMPETENT for greater ASV proximal calf is INCOMPETENT for greater than 0.5 seconds and measures 0.35 x 0.36 cm. than 0.5 seconds and measures 0.33 x 0.33 cm. ASV proximal calf is INCOMPETENT for greater SSV at junction is competent and measures than 0.5 seconds and measures 0.30 x 0.30 cm. 0.38 x 0.36 cm. SSV at junction is competent and measures 0.61 x 0.62 cm. Procedure This is a venous duplex using B-mode, color flow and spectral Doppler. Exam performed in department. A preliminary report was called and/or faxed to . VL/Venous Duplex US - Benny Extrem Interpretation Summary Deep veins of the lower extremities are bilaterally patent and compressible seg mentally. There is no evidence of deep vein thrombosis on either side. Valvular competence appears in tact within the proximal deep venous systems bilaterally. The great saphenous veins appear bila terally patent and compressible segmentally. Sapheno-femoral junctions are bilaterally competent . The right great saphenous vein appears competent above the knee. The right great saphenous vein appears incompetent below the knee. The left great saphenous vein appears competent above the knee. The left great saphenous vein appears incompetent below the knee. Small saphenous veins are pa tent and competent bilaterally. The accessory saphenous vein at the right sapheno-femoral junction is incompetent. The accessory saphenous vein in the right proximal calf is incompetent. The accesso ry saphenous vein in the left proximal calf is incompetent. Ordering Physician: Yenifer Ann Referring Physician: Shay Chin Performed By: Shira Arreaga RVT
--- NOTE | 2020-09-14 09:44 | ART_ITS ---
Reason For Study: Lower leg wound Procedure A bilateral lower extremity continuous wave Doppler with analog waveform analysis,segmental pressures,and ankle brachial indexes without exercise. Left Segmental Pressures Left brachial= 132mmHg. Left posterior tibial artery = 172mmHg. Left dorsalis pedis artery = 163mmHg. Left digit = 93 mmHg. The left dorsalis pedis waveforms are triphasic. The left posterior tibial artery waveforms are triphasic. Right Segmental Pressures Right brachial= 127mmHg. Right posterior tibial artery = 196mmHg. Right dorsalis pedis artery = 178mmHg. Right digit = 103 mmHg. The right dorsalis pedis waveforms are biphasic. The right posterior tibial artery waveforms are triphasic. Indices The right ankle brachial index by the dorsalis pedis is 1.35. The right ankle brachial index by the posterior tibial artery is 1.48. The right digital-brachial index is 0.78. The left ankle brachial index by the dorsalis pedis is 1.23. The left ankle brachial index by the posterior tibial artery is 1.30. The left digital-brachial index is 0.70. VL/Lower Ext Art Exam w/o Exercis Interpretation Summary Triphasic and biphasic Doppler waveforms are noted at ankle level on the right. Triphasic Doppler waveforms are noted at ankle level on the left. Pulse-volume recordings appear satisfactory at all levels bilaterally, including low-thigh, calf, ankle, and digital levels. The r esting right ankle- brachial index is supra-normal. The resting left ankle-brachial index is normal . Digital-brachial indices are normal bilaterally. There is evidence of arterial calcification at ankle level on the right. There is no evidence of significant arterial occlusive disease in the lower extremities bilaterally. Ordering Physician: Yenifer Ann Referring Physician: Shay Chin Performed By: Shira Arreaga RVT
[2020-09-17 11:16] VITALS: BP 135/59; PULSE 83; RESP 18; TEMP 36.6; BMI 41.5
--- NOTE | 2020-09-17 12:24 | PCM.WC.PN ---
History of Present Illness Date of Service: 09/17/20 Chief Complaint: Nonhealing bilateral leg ulcers History of Wound: Mr. Garcia is a 64-year-old who was referred to the wound center due to nonhealing bilateral leg ulcers. Had presented to the emergency room at [facility] on the 05 of January due to significant bilateral lower extremity pain and redness. Managed for bilateral leg cellulitis. Discharged on the . Ulcers have been managed at home by home health. Was on Omnicef at discharge. Still reports significant predominantly left lower extremity pain. Edema is persistent with weeping, with no improvement with 3M 2layer wraps. History of diabetes mellitus type 2 which is not well controlled. Right leg ulcer has since healed. Wound care for left lateral leg ulcer cluster is Aquacel-Ag covered by gauze daily. He will apply Lac Hydrin lotion to lower legs and feet (except the ulcer area) twice daily. He is wrapping his legs in Kerlix before he uses Double tubigrips for compression. Venous Doppler study on 09/14/20 showed no evidence of DVT bilaterally. The right and left great saphenous vein appears incompetent below the knee. The accessory saphenous vein at the right sapheno-femoral junction is incompetent. The accessory saphenous vein in the right and left proximal calf are incompetent. Arterial studies on 09/14/20 with Triphasic Doppler waveforms at ankle bilaterally. Right ADONAY at dorsalis pedis is 1.35. Left ADONAY at dorsalis pedis is 1.23. Referring him to Dr. Hyatt for further evaluation. He denies chills, fever, nausea or vomiting. Progress of Wound: Left lateral lower leg ulcer is stable. Very sensitive to palpation. Bilateral lower legs are dry and flakey. Starting Lac Hydrin lotion should help with that. Objective Data Objective Data Vital Signs: Vital Signs Temp Pulse Resp BP Pulse Ox 97.9 F 83 18 135/59 H 97 09/17/20 11:16 09/17/20 11:16 09/17/20 11:16 09/17/20 11:16 08/25/20 00:26 Oxygen Delivery Method Room Air Weight: 255 lb Body Mass Index (BMI) 41.5 Charges/Coding Procedures Integumentary 111xxx-113xx: 90047 June subq tissue 20 sq cm/< Physical Exam Const alert and oriented x3 General Appearance: cooperative HEENT normocephalic Eyes PERRL Resp normal respiratory effort Cardio regular rate Extremity normal capillary refill General Extremity: edema bilateral lower extremity Details: severe Skin Skin Narrative: Dry flakey skin on bilateral lower legs, ankles and feet. Wound Narrative: Left lateral leg ulcer cluster is painful to touch. Skin surrounding the ulcers is weepy. Neuro CN's II-XII intact bilaterally Psych Appearance: grossly normal Debridement Note Debridement Note Post-Debridement Measurements and Additional Note: Post-Debridement Measurements/Treatment - Nurse 1 - General Ulcer Assessment Start: 08/30/20 09:06 Freq: Status: Active Protocol: NATHALIE.LOWEXDeion Activity Type Activity Date Activity User E-Sign Co-Sign Detail Recorded Client Recorded Date Recorded By Document 08/30/20 09:06 [id number] 08/30/20 09:11 KR Document 09/04/20 13:42 [facility] [id number] 09/04/20 13:44 [facility] Document 09/11/20 14:34 KR [id number] 09/11/20 14:36 Document 09/17/20 11:16 [facility] [id number] 09/17/20 11:22 [facility] 08/30/20 09/04/20 09/11/20 09:06 13:42 14:34 - Today's Visit Information Type of service Follow-up Visit Follow-up Visit Follow-up Visit (Physician/[employer] (Physician/[employer] (Physician/[employer] ) ) ) Arrival Mode Ambulatory Ambulatory,Cane Ambulatory Transfer Assistance None None Patient Identification Verified (Name & Yes Yes Yes ) Patient Requires Transmission-Based No Precautions Height and Weight Body Mass Index (BMI) 41.5 41.5 41.5 BMI Classification Obese Obese Obese Vital Signs Temperature (97.8 F-99.1 F) 97.3 F L 98.3 F 97.2 F L Temperature Source Temporal Temporal Temporal Pulse Rate (60-100) 86 95 88 Pulse Location Monitor Monitor Monitor Respiratory Rate (12-18) 20 H 16 Respiratory rate source Observation Observation Oxygen Delivery Method Room Air Blood Pressure (90/60-120/80) 160/73 H 131/71 H 126/69 H Blood Pressure Mean (mm Hg) 102 91 88 Source Monitor Monitor Monitor Position Semi-Fowlers Sitting Semi-Fowlers Blood Pressure Location Left Arm Left Arm Left Arm History Since Last Visit- (Skip if this is Patient's initial visit) Have you changed medications since your No No No last visit? Any new allergies or adverse reactions No No No Had a fall/change in ADL's that may No No No increase risk of falls Signs or symptoms of abuse and/or No No No neglect since last visit Have you been in the hospital since your No No last visit? Has dressing in place as prescribed Yes Yes Yes Has compression in place as prescribed Yes Yes Has offloadiing in place as prescribed N/A N/A Experienced any changes in pain level or No No management Left Footwear Regular Shoe Regular Shoe Right Footwear Regular Shoe Regular Shoe Pain Scale: 0-10 Numeric Is Patient Pain Free? Yes Yes Yes 09/17/20 11:16 WC - Today's Visit Information Type of service Follow-up Visit (Physician/[employer] ) Arrival Mode Ambulatory Transfer Assistance None Patient Identification Verified (Name & Yes ) Patient Requires Transmission-Based No Precautions Height and Weight Body Mass Index (BMI) 41.5 BMI Classification Obese Vital Signs Temperature (97.8 F-99.1 F) 97.9 F Temperature Source Temporal Pulse Rate (60-100) 83 Pulse Location Monitor Respiratory Rate (12-18) 18 Respiratory rate source Observation Oxygen Delivery Method Room Air Blood Pressure (90/60-120/80) 135/59 H Blood Pressure Mean (mm Hg) 84 Source Monitor Position Sitting Blood Pressure Location Left Arm History Since Last Visit- (Skip if this is Patient's initial visit) Have you changed medications since your No last visit? Any new allergies or adverse reactions No Had a fall/change in ADL's that may No increase risk of falls Signs or symptoms of abuse and/or No neglect since last visit Have you been in the hospital since your No last visit? Has dressing in place as prescribed Yes Has compression in place as prescribed No Has offloadiing in place as prescribed N/A Experienced any changes in pain level or No management Left Footwear Regular Shoe Right Footwear Regular Shoe Pain Scale: 0-10 Numeric Is Patient Pain Free? Yes - Nurse 1 - General Ulcer Measurement Start: 08/30/20 09:06 Freq: Status: Active Protocol: Activity Type Activity Date Activity User E-Sign Co-Sign Detail Recorded Client Recorded Date Recorded By Document 08/30/20 09:06 RAÚL [id number] 08/30/20 09:11 KR Document 09/04/20 13:42 [facility] [id number] 09/04/20 13:44 BM Document 09/11/20 14:34 KR [id number] 09/11/20 14:36 KR Document 09/17/20 11:16 [facility] [id number] 09/17/20 11:22 [facility] 08/30/20 09/04/20 09/11/20 09:06 13:42 14:34 Wound Center Nurse 1 #2- Left lateral le cluster -Combined with other wound No -Current Size (cm) - Length 2.2 2.1 3.2 -Current Size (cm) - Width 0.9 1.2 0.4 -Current Size (cm) - Depth 1 0.1 0.1 -Total Square Cm 1.98 2.52 1.28 -Photo Taken No No -Epithelialization Small 1-33% -Tunneling No -Undermining/Tunneling No -Circular Undermining No -Exudate Amt Medium Medium Small -Exudate Type Serosanguineous Serosanguineous Serosanguineous -Wound Margin Indistinct, Non Flat & Intact Distinct, -Visible Outline Attached -Granulation Amt None Present (0 Medium (34-66%) Small (1-33%) %) -Granulation Quality Red Red -Slough/Fibrin Yes -Necrosis Amt Large (67-100%) Medium (34-66%) Small (1-33%) -Necrotic Tissue Type Adherent Slough Adherent Slough Adherent Slough -Structure Exposed N/A -Texture (Reina-wound Skin Appearance) Excoriation, Assessed, Assessed, Scarring Scarring Scarring -Moisture (Reina-wound Skin Appearance) Weeping Assessed, No Abnormality, Maceration, Assessed Weeping -Color (Reina-wound Skin Appearance) Erythema,Rubor Assessed, No Abnormality, Erythema,Palor Assessed -Temperature (Reina-wound Skin No Abnormality No Abnormality No Abnormality Appearance) (Pt Warm) (Pt Warm) (Pt Warm) -Tenderness on Palpation (Reina-wound No No No Skin Appearance) -Ulcer Cleansing Wound Cleanser Rinsed/ Rinsed/ Irrigated with Irrigated with Saline Saline -Foul Odor after Cleansing No No No -Anesthetic Used 4% Lidocaine 5% Lidocaine 4% Lidocaine Solution Gel Solution Lower Limb Edema Present Yes Right Calf (cm) 47.3 49 49.1 Right Ankle (cm) 35.2 35 34.2 Left Calf (cm) 47.5 47.5 49.4 Left Ankle (cm) 31 31.6 34 09/17/20 11:16 Wound Center Nurse 1 #2- Left lateral le cluster -Combined with other wound No -Current Size (cm) - Length 0.5 -Current Size (cm) - Width 2 -Current Size (cm) - Depth 0.2 -Total Square Cm 1.0 -Photo Taken No -Epithelialization None Present -Tunneling No -Undermining/Tunneling No -Circular Undermining No -Exudate Amt Medium -Exudate Type Serous -Wound Margin Distinct, Outline Attached -Granulation Amt Large (67-100%) -Granulation Quality Red -Slough/Fibrin Yes -Necrosis Amt Small (1-33%) -Necrotic Tissue Type Adherent Slough -Structure Exposed -Texture (Reina-wound Skin Appearance) Assessed, Excoriation, Scarring -Moisture (Reina-wound Skin Appearance) Maceration, Weeping,Dry/ Scaly -Color (Reina-wound Skin Appearance) Assessed, Erythema,Palor -Temperature (Reina-wound Skin No Abnormality Appearance) (Pt Warm) -Tenderness on Palpation (Reina-wound No Skin Appearance) -Ulcer Cleansing Rinsed/ Irrigated with Saline -Foul Odor after Cleansing No -Anesthetic Used 4% Lidocaine Solution Lower Limb Edema Present Yes Right Calf (cm) Right Ankle (cm) Left Calf (cm) 48.6 Left Ankle (cm) 30 WC - Nurse 2 - General Ulcer CM Notes Start: 08/30/20 09:06 Freq: Status: Active Protocol: Activity Type Activity Date Activity User E-Sign Co-Sign Detail Recorded Client Recorded Date Recorded By Document 08/30/20 09:33 MW [id number] 08/30/20 09:45 MW Document 09/04/20 14:20 [id number] 09/04/20 14:23 JF Document 09/11/20 15:12 JF [id number] 09/11/20 15:19 JF Document 09/17/20 11:49 [id number] 09/17/20 11:53 JF 08/30/20 09/04/20 09/11/20 09:33 14:20 15:12 Wound Center Nurse 2 #2- Left lateral le cluster -Time 09:36 14:20 15:13 -Correct Patient Yes Yes Yes -Correct Side, Site, Position Yes Yes Yes -Correct Procedure Yes Yes Yes -Procedure Performed Yes Yes Yes -Type of Procedure Debridement Debridement Debridement -Clinical Debridement Subcutaneous Subcutaneous Subcutaneous -Tissue Removed Subcutaneous Subcutaneous Subcutaneous -Post Debridement (cm) - Length 3.3 3.3 7.3 -Post Debridement (cm) - Width 4.0 4 3 -Post Debridement (cm) - Depth 0.1 0.2 0.2 -Total Square (Post) (cm) 13.20 13.2 21.9 -Area of Debridement (cm) - Length 3.3 3.3 7.3 -Area of Debridement (cm) - Width 4.0 4 3 -Total Square (Area) (cm) 13.20 13.2 21.9 -Tunneling No No No -Undermining/Tunneling No No No -Circular Undermining No No No -Wound/Ulcer Outcome Not Healed Not Healed Not Healed -Ulcer Cleansing Rinsed/ Rinsed/ Rinsed/ Irrigated with Irrigated with Irrigated with Saline Saline Saline -Foul Odor after Cleansing No No No -Bioengineered Tissue Yes No No -Type of Bioengineered Tissue NuShield -Expiration Date 04/21/24 -Product Lot Number [id number] -Percent Used 100 -Lot number of Saline Used [id number] -Bleeding Controlled with Pressure Pressure Pressure -Offloading No No No -Type of Offloading -Treatment Response Procedure Procedure Procedure Tolerated Well Tolerated Well Tolerated Well -Debridement - Subq, 1st 20sq cm No Yes Yes -Debridement, SubQ, ea addt'l 20sq cm 1 or part thereof -Apply Skin Sub - 1st 25 sq cm - Legs 1 -NuShield (per sq cm) 12 Pain Scale: 0-10 Numeric Is Patient Pain Free? Yes Yes Yes 09/17/20 11:49 Wound Center Nurse 2 #2- Left lateral le cluster -Time 11:50 -Correct Patient Yes -Correct Side, Site, Position Yes -Correct Procedure Yes -Procedure Performed Yes -Type of Procedure Debridement -Clinical Debridement Subcutaneous -Tissue Removed Subcutaneous -Post Debridement (cm) - Length 7.2 -Post Debridement (cm) - Width 1.6 -Post Debridement (cm) - Depth 0.1 -Total Square (Post) (cm) 11.52 -Area of Debridement (cm) - Length 7.2 -Area of Debridement (cm) - Width 1.6 -Total Square (Area) (cm) 11.52 -Tunneling No -Undermining/Tunneling No -Circular Undermining No -Wound/Ulcer Outcome Not Healed -Ulcer Cleansing Rinsed/ Irrigated with Saline -Foul Odor after Cleansing No -Bioengineered Tissue No -Type of Bioengineered Tissue -Expiration Date -Product Lot Number -Percent Used -Lot number of Saline Used -Bleeding Controlled with Pressure -Offloading -Type of Offloading Total Contact Cast (TCC) - Left ($) -Treatment Response Procedure Tolerated Well -Debridement - Subq, 1st 20sq cm Yes -Debridement, SubQ, ea addt'l 20sq cm or part thereof -Apply Skin Sub - 1st 25 sq cm - Legs -NuShield (per sq cm) Pain Scale: 0-10 Numeric Is Patient Pain Free? Yes WC - Nurse 3 - General Ulcer D/C NN Start: 08/30/20 09:06 Freq: Status: Active Protocol: Activity Type Activity Date Activity User E-Sign Co-Sign Detail Recorded Client Recorded Date Recorded By Document 08/31/20 07:15 PL [id number] 08/31/20 07:16 PL Document 09/04/20 14:34 [facility] [id number] 09/04/20 14:36 [facility] Document 09/11/20 16:40 PL [id number] 09/11/20 16:42 PL Document 09/17/20 12:08 DL [id number] 09/17/20 12:10 DL 08/31/20 09/04/20 09/11/20 07:15 14:34 16:40 #2- Left lateral le cluster -Ulcer Cleansing Rinsed/ Rinsed/ Irrigated with Irrigated with Saline Saline -Foul Odor after Cleansing No No -Primary Dressing Applied Aquacel AG 4x4 Aquacel AG 4x4 -Other Dressing ABD, Kerlix -Primary Dressing Covered/Secured with Dry Gauze & Secured with Roll Gauze, Tape Secured with Tape,Other -Other Covering abd -Aquacel AG 4x4 1 1 Wound Care Nurse 3 Bilateral -Multi-Layered Wrap Application Unna Boot - Bilateral ($) -Unna Boots (Bilat) ($) 2 -Tubular Bandage Single Layer Single Layer -Size of Tubigrip Used Size F Size F -Size E ($) -Size F ($) 2 2 Treatment Response Procedure Tolerated Well Pain Scale: 0-10 Numeric Is Patient Pain Free? Yes Yes WC - Visit Discharge Discharge Condition Stable Stable Ambulatory Status Ambulatory Ambulatory Transportation Private Auto Private Auto Clinical Summary of Care Provided Yes Facility Type Home Health Orders Sent 09/17/20 12:08 #2- Left lateral le cluster -Ulcer Cleansing -Foul Odor after Cleansing No -Primary Dressing Applied Aquacel AG 4x4 -Other Dressing -Primary Dressing Covered/Secured with Dry Gauze & Roll Gauze, Secured with Tape -Other Covering -Aquacel AG 4x4 1 Wound Care Nurse 3 Bilateral -Multi-Layered Wrap Application -Unna Boots (Bilat) ($) -Tubular Bandage Double Layer -Size of Tubigrip Used Size E -Size E ($) 2 -Size F ($) Treatment Response Procedure Tolerated Well Pain Scale: 0-10 Numeric Is Patient Pain Free? Yes WC - Visit Discharge Discharge Condition Stable Ambulatory Status Ambulatory Transportation Private Auto Clinical Summary of Care Provided Facility Type Home Health Orders Sent Yes Wound debrided: Lateral lower leg ulcer cluster Laterality: Left Type of Debridement: Excisional debridement Anesthesia Used: 5% Lidocaine Gel Depth: Down to and including healthy tissue and in the subcutaneous layer Percentage of wound debrided: 100 Instrument Used: 5mm curette Tissue Removed: Subcutaneous tissue and slough Severity: Fat Layer Exposed Amount of bleeding with debridement: Mild Bleeding Controlled with: Pressure Patient tolerated procedure: Patient tolerated procedure well Assessment/Plan Assessment/Plan (1) Ulcer of left lower extremity with fat layer exposed: CODE(S): L97.922 - Non-pressure chronic ulcer of unspecified part of left lower leg with fat layer exposed (2) Bilateral lower extremity edema: CODE(S): R60.0 - Localized edema (3) Lymphedema: CODE(S): I89.0 - Lymphedema, not elsewhere classified (4) Stasis dermatitis of both legs: CODE(S): I87.2 - Venous insufficiency (chronic) (peripheral) (5) Obesity (BMI 30-39.9): CODE(S): E66.9 - Obesity, unspecified PLAN: Subcutaneous debridement performed.? Patient tolerated procedure well. Bilateral lower legs edematous. The Triamcinolome cream helped decrease the erythema. The only weeping is around the left leg ulcer area. Ordered arterial and venous studies done on 09/14/20. Consult Dr. Hyatt for further evaluation. Wound care- [facility]- to the left lateral leg ulcer and cover with either Exelsap or Kerramax absorbent dressing daily and prn.? He should wash his legs and ulcer daily with soap and water before he does his dressing changes. On the sloughing skin, will have him stop using Triamcinolome cream and start using Lac Hydrin lotion twice daily on his bilateral lower legs (except where the ulcer is located), ankles and feet. He will wrap his legs with Kerlix to help absorb his weeping legs and then use a double layer tubigrip.? He may continue to use his lymphedema pumps at home as prescribed. Follow up 1-2 weeks for a courtesy visit with another provider due to the holiday and then me being on vacation. Follow up 3 weeks with me.
== END 2020-09-24 23:59 ==
LOC: WC 11:00
PROVIDERS: PCP Family Medicine; Referring Provider Family Medicine; Visit Provider Internal Medicine
DX: E11.621 Type 2 diabetes mellitus with foot ulcer (principal); L97.922 Non-pressure chronic ulcer of unspecified part of left lower leg with fat layer exposed; I89.0 Lymphedema, not elsewhere classified; R60.0 Localized edema; I87.2 Venous insufficiency (chronic) (peripheral); E66.9 Obesity, unspecified; Z79.4 Long term (current) use of insulin; Z68.30 Body mass index [BMI] 30.0-30.9, adult
CPT/HCPCS: 11042; 11045; 15271; 29445; 29580; 93923; 93970; Q4160

== ENCOUNTER 2020-10-22 09:00 | Outpatient (RCR) | payer MEDICARE, SELFPAY ==
[2020-09-25 00:15] VITALS: BP 135/59; PULSE 83; RESP 18; TEMP 36.6; O2SAT 97
[2020-10-03 08:40] VITALS: BP 121/65; PULSE 80; TEMP 35.8; BMI 41.5
[2020-10-08 10:15] VITALS: BP 129/72; PULSE 95; RESP 18; TEMP 36.9; BMI 41.5
--- NOTE | 2020-10-08 16:43 | PCM.WC.PN ---
History of Present Illness Date of Service: 10/08/20 Chief Complaint: Nonhealing bilateral leg ulcers History of Wound: Mr. Garcia is a 64-year-old who was referred to the wound center due to nonhealing bilateral leg ulcers. Had presented to the emergency room at [facility] on the 05 of January due to significant bilateral lower extremity pain and redness. Managed for bilateral leg cellulitis. Discharged on the . Ulcers have been managed at home by home health. Was on Omnicef at discharge. Still reports significant predominantly left lower extremity pain. Edema is persistent with weeping, with no improvement with 3M 2layer wraps. History of diabetes mellitus type 2 which is not well controlled. Right leg ulcer has since healed. Wound care for left lateral leg ulcer cluster is Aquacel-Ag covered by gauze daily. He will apply Lac Hydrin lotion to lower legs and feet (except the ulcer area) twice daily. He is wrapping his legs in Kerlix before he uses Double tubigrips for compression. Venous Doppler study on 09/14/20 showed no evidence of DVT bilaterally. The right and left great saphenous vein appears incompetent below the knee. The accessory saphenous vein at the right sapheno-femoral junction is incompetent. The accessory saphenous vein in the right and left proximal calf are incompetent. Arterial studies on 09/14/20 with Triphasic Doppler waveforms at ankle bilaterally. Right ADONAY at dorsalis pedis is 1.35. Left ADONAY at dorsalis pedis is 1.23. Referring him to Dr. Hyatt for further evaluation. He denies chills, fever, nausea or vomiting. Progress of Wound: Bilateral legs are macerated since he went to [facility] dermatology and they told him to stop the Lac-hydrin lotion and to start using aquaphor lotion on his bilateral legs. Objective Data Objective Data Vital Signs: Vital Signs Temp Pulse Resp BP Pulse Ox 98.5 F 95 18 129/72 H 97 10/08/20 10:15 10/08/20 10:15 10/08/20 10:15 10/08/20 10:15 09/25/20 00:15 Oxygen Delivery Method Room Air Weight: 255 lb Body Mass Index (BMI) 41.5 Charges/Coding Procedures Integumentary 111xxx-113xx: [id number] June subq tissue 20 sq cm/< Physical Exam Const alert and oriented x3 General Appearance: cooperative HEENT normocephalic Head and Scalp: atraumatic Eyes PERRL Lymph Lymphatic Narrative: Bilateral lower leg edema and lymphedema. Resp normal respiratory effort Cardio regular rate GI normal to inspection, nondistended, normoactive bowel sounds Extremity normal capillary refill Skin Skin Narrative: Patient has psoriasis with dry, flakey skin over his extremities. He was told by dermatology to use aquaphor on his legs and now his skin is pink, moist and macerated. Wound Narrative: Left lateral leg ulcer cluster is stable. Continues to be painful to palpation. Neuro CN's II-XII intact bilaterally Psych Appearance: grossly normal Debridement Note Debridement Note Post-Debridement Measurements and Additional Note: Post-Debridement Measurements/Treatment - Nurse 1 - General Ulcer Assessment Start: 10/03/20 08:39 Freq: Status: Active Protocol: .LOWEXT Activity Type Activity Date Activity User E-Sign Co-Sign Detail Recorded Client Recorded Date Recorded By Document 10/03/20 08:40 [id number] 10/03/20 08:41 Document 10/08/20 10:15 [facility] [id number] 10/08/20 10:23 [facility] 10/03/20 10/08/20 08:40 10:15 - Today's Visit Information Type of service Nurse-only Follow-up Visit Visit (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 ) Arrival Mode Ambulatory Ambulatory Transfer Assistance None Patient Identification Verified (Name & Yes ) Patient Requires Transmission-Based No Precautions Finger Stick Blood Sugar(mg/dl) (if 126 indicated): Blood Sugar Stated by Patient Height and Weight Body Mass Index (BMI) 41.5 41.5 BMI Classification Obese Obese Vital Signs Temperature (97.8 F-99.1 F) 96.5 F L 98.5 F Temperature Source Temporal Temporal Pulse Rate (60-100) 80 95 Pulse Location Monitor Monitor Respiratory Rate (12-18) 18 Respiratory rate source Observation Oxygen Delivery Method Room Air Blood Pressure (90/60-120/80) 121/65 H 129/72 H Blood Pressure Mean (mm Hg) 83 91 Source Monitor Monitor Position Sitting Sitting Blood Pressure Location Left Arm Left Arm History Since Last Visit- (Skip if this is Patient's initial visit) Have you changed medications since your No No last visit? Any new allergies or adverse reactions No No Had a fall/change in ADL's that may No No increase risk of falls Signs or symptoms of abuse and/or No No neglect since last visit Have you been in the hospital since your No No last visit? Has dressing in place as prescribed Yes No Has compression in place as prescribed Yes No Has offloadiing in place as prescribed N/A N/A Experienced any changes in pain level or No No management Left Footwear Regular Shoe Right Footwear Regular Shoe Pain Scale: 0-10 Numeric Is Patient Pain Free? Yes Yes NATHALIE - Nurse 1 - General Ulcer Measurement Start: 10/03/20 08:39 Freq: Status: Active Protocol: Activity Type Activity Date Activity User E-Sign Co-Sign Detail Recorded Client Recorded Date Recorded By Document 10/03/20 08:40 KR [id number] 10/03/20 08:41 KR Document 10/08/20 10:15 [facility] [id number] 10/08/20 10:23 [facility] 10/03/20 10/08/20 08:40 10:15 #2- Left lateral le cluster -Combined with other wound No -Current Size (cm) - Length 0.1 -Current Size (cm) - Width 0.1 -Current Size (cm) - Depth 0.1 -Total Square Cm 0.01 -Photo Taken No -Epithelialization Large 67-100% -Texture (Reina-wound Skin Appearance) Assessed, Excoriation, Rash -Moisture (Reina-wound Skin Appearance) Assessed, Maceration, Weeping -Color (Reina-wound Skin Appearance) Assessed, Erythema,Palor -Temperature (Reina-wound Skin No Abnormality Appearance) (Pt Warm) -Tenderness on Palpation (Reina-wound Yes Skin Appearance) -Ulcer Cleansing Wound Cleanser -Foul Odor after Cleansing No -Anesthetic Used 4% Lidocaine Solution Wound Center Nurse 1 Lower Limb Edema Present Yes Right Calf (cm) 48 Right Ankle (cm) 33.5 Right Foot (cm) 48.2 Left Calf (cm) 50 30.4 Left Ankle (cm) 32 NATHALIE - Nurse 2 - General Ulcer CM Notes Start: 10/03/20 08:39 Freq: Status: Active Protocol: Activity Type Activity Date Activity User E-Sign Co-Sign Detail Recorded Client Recorded Date Recorded By Document 10/08/20 12:12 PL [id number] 10/08/20 12:14 PL 10/08/20 12:12 Wound Center Nurse 2 #2- Left lateral le cluster -Time 10:44 -Correct Patient Yes -Correct Side, Site, Position Yes -Correct Procedure Yes -Procedure Performed Yes -Type of Procedure Debridement -Clinical Debridement Subcutaneous -Tissue Removed Subcutaneous -Post Debridement (cm) - Length 2.5 -Post Debridement (cm) - Width 0.4 -Post Debridement (cm) - Depth 0.2 -Total Square (Post) (cm) 1.00 -Area of Debridement (cm) - Length 2.5 -Area of Debridement (cm) - Width 0.4 -Total Square (Area) (cm) 1.00 -Tunneling No -Undermining/Tunneling No -Circular Undermining No -Wound/Ulcer Outcome Not Healed -Ulcer Cleansing Rinsed/ Irrigated with Saline -Foul Odor after Cleansing No -Bioengineered Tissue No -Bleeding Controlled with Pressure -Treatment Response Procedure Tolerated Well -Debridement - Subq, 1st 20sq cm Yes Pain Scale: 0-10 Numeric Is Patient Pain Free? Yes WC - Nurse 3 - General Ulcer D/C NN Start: 10/03/20 08:39 Freq: Status: Active Protocol: Activity Type Activity Date Activity User E-Sign Co-Sign Detail Recorded Client Recorded Date Recorded By Document 10/03/20 08:41 [id number] 10/03/20 08:42 Document 10/08/20 10:58 [facility] [id number] 10/08/20 10:59 [facility] 10/03/20 10/08/20 08:41 10:58 Wound Care Nurse 3 #2- Left lateral le cluster -Ulcer Cleansing Rinsed/ Rinsed/ Irrigated with Irrigated with Saline Saline -Foul Odor after Cleansing No -Primary Dressing Applied Aquacel AG 4x4 Aquacel AG 4x4 -Primary Dressing Covered/Secured with Dry Gauze,Dry Dry Gauze & Gauze & Roll Roll Gauze, Gauze,Secured Secured with with Tape Tape,Other -Other Covering drsg per d jennifer cost accounting clerk -Aquacel AG 4x4 1 1 Right -Tubular Bandage Double Layer Double Layer -Size of Tubigrip Used Size F Size F -Size F ($) 2 2 Left -Lotion applied to leg before No compression wrap -Tubular Bandage Double Layer Double Layer -Size of Tubigrip Used Size F Size F -Size F ($) 2 2 Treatment Response Procedure Tolerated Well Pain Scale: 0-10 Numeric Is Patient Pain Free? Yes Yes WC - Visit Discharge Discharge Condition Stable Ambulatory Status Ambulatory Transportation Private Auto Facility Type Home Health Wound debrided: Lateral lower leg ulcer cluster Laterality: Left Type of Debridement: Excisional debridement Anesthesia Used: 5% Lidocaine Gel Depth: Down to and including healthy tissue and in the subcutaneous layer Percentage of wound debrided: 100 Instrument Used: 3mm curette Tissue Removed: Subcutaneous tissue and slough Severity: Fat Layer Exposed Amount of bleeding with debridement: Mild Bleeding Controlled with: Pressure Patient tolerated procedure: Patient tolerated procedure well Assessment/Plan Assessment/Plan (1) Ulcer of left lower extremity with fat layer exposed: CODE(S): L97.922 - Non-pressure chronic ulcer of unspecified part of left lower leg with fat layer exposed (2) Bilateral lower extremity edema: CODE(S): R60.0 - Localized edema (3) Lymphedema: CODE(S): I89.0 - Lymphedema, not elsewhere classified (4) Stasis dermatitis of both legs: CODE(S): I87.2 - Venous insufficiency (chronic) (peripheral) (5) Obesity (BMI 30-39.9): CODE(S): E66.9 - Obesity, unspecified PLAN: Subcutaneous debridement performed. Patient tolerated procedure well. Bilateral lower legs edematous. He saw dermatology a couple weeks ago and was told to use Aquaphor daily to lower extremities. His legs now are macerated. Ordered arterial and venous studies done on 09/14/20. Consulted Dr. Hyatt for further evaluation. He has an appointment with him coming up soon. Wound care- Aquacel-ag to the left lateral leg ulcer and cover with either Exelsap or Kerramax absorbent dressing daily and prn. He should wash his legs and ulcer daily with soap and water before he does his dressing changes. On the sloughing skin, will have him stop using the Aquaphor and start using Lac Hydrin lotion twice daily on his bilateral lower legs (except where the ulcer is located), ankles and feet. He will wrap his legs with Kerlix to help absorb his weeping legs and then use a double layer tubigrip. He may continue to use his lymphedema pumps at home as prescribed. Follow up one week.
--- NOTE | 2020-10-08 16:43 | PCM.WC.PN ---
History of Present Illness Chief Complaint: Nonhealing bilateral leg ulcers History of Wound: Mr. Garcia is a 64-year-old who was referred to the wound center due to nonhealing bilateral leg ulcers. Had presented to the emergency room at [facility] on the 05 of January due to significant bilateral lower extremity pain and redness. Managed for bilateral leg cellulitis. Discharged on the . Ulcers have been managed at home by home health. Was on Omnicef at discharge. Still reports significant predominantly left lower extremity pain. Edema is persistent with weeping, with no improvement with 3M 2layer wraps. History of diabetes mellitus type 2 which is not well controlled. Right leg ulcer has since healed. Wound care for left lateral leg ulcer cluster is Aquacel-Ag covered by gauze daily. He will apply Lac Hydrin lotion to lower legs and feet (except the ulcer area) twice daily. He is wrapping his legs in Kerlix before he uses Double tubigrips for compression. Venous Doppler study on 09/14/20 showed no evidence of DVT bilaterally. The right and left great saphenous vein appears incompetent below the knee. The accessory saphenous vein at the right sapheno-femoral junction is incompetent. The accessory saphenous vein in the right and left proximal calf are incompetent. Arterial studies on 09/14/20 with Triphasic Doppler waveforms at ankle bilaterally. Right ADONAY at dorsalis pedis is 1.35. Left ADONAY at dorsalis pedis is 1.23. Referring him to Dr. Hyatt for further evaluation. He denies chills, fever, nausea or vomiting. Objective Data Objective Data Vital Signs: Vital Signs Temp Pulse Resp BP Pulse Ox 98.5 F 95 18 129/72 H 97 10/08/20 10:15 10/08/20 10:15 10/08/20 10:15 10/08/20 10:15 09/25/20 00:15 Oxygen Delivery Method Room Air Weight: 255 lb Body Mass Index (BMI) 41.5 Debridement Note Debridement Note Post-Debridement Measurements and Additional Note: Post-Debridement Measurements/Treatment WC - Nurse 1 - General Ulcer Assessment Start: 10/03/20 08:39 Freq: Status: Active Protocol: [email or web address] Activity Type Activity Date Activity User E-Sign Co-Sign Detail Recorded Client Recorded Date Recorded By Document 10/03/20 08:40 [id number] 10/03/20 08:41 Document 10/08/20 10:15 [facility] [id number] 10/08/20 10:23 [facility] 10/03/20 10/08/20 08:40 10:15 - Today's Visit Information Type of service Nurse-only Follow-up Visit 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 ) Arrival Mode Ambulatory Ambulatory Transfer Assistance None Patient Identification Verified (Name & Yes ) Patient Requires Transmission-Based No Precautions Finger Stick Blood Sugar(mg/dl) (if 126 indicated): Blood Sugar Stated by Patient Height and Weight Body Mass Index (BMI) 41.5 41.5 BMI Classification Obese Obese Vital Signs Temperature (97.8 F-99.1 F) 96.5 F L 98.5 F Temperature Source Temporal Temporal Pulse Rate (60-100) 80 95 Pulse Location Monitor Monitor Respiratory Rate (12-18) 18 Respiratory rate source Observation Oxygen Delivery Method Room Air Blood Pressure (90/60-120/80) 121/65 H 129/72 H Blood Pressure Mean (mm Hg) 83 91 Source Monitor Monitor Position Sitting Sitting Blood Pressure Location Left Arm Left Arm History Since Last Visit- (Skip if this is Patient's initial visit) Have you changed medications since your No No last visit? Any new allergies or adverse reactions No No Had a fall/change in ADL's that may No No increase risk of falls Signs or symptoms of abuse and/or No No neglect since last visit Have you been in the hospital since your No No last visit? Has dressing in place as prescribed Yes No Has compression in place as prescribed Yes No Has offloadiing in place as prescribed N/A N/A Experienced any changes in pain level or No No management Left Footwear Regular Shoe Right Footwear Regular Shoe Pain Scale: 0-10 Numeric Is Patient Pain Free? Yes Yes - Nurse 1 - General Ulcer Measurement Start: 10/03/20 08:39 Freq: Status: Active Protocol: Activity Type Activity Date Activity User E-Sign Co-Sign Detail Recorded Client Recorded Date Recorded By Document 10/03/20 08:40 [email or web address] [id number] 10/03/20 08:41 Document 10/08/20 10:15 [facility] [id number] 10/08/20 10:23 [facility] 10/03/20 10/08/20 08:40 10:15 #2- Left lateral le cluster -Combined with other wound No -Current Size (cm) - Length 0.1 -Current Size (cm) - Width 0.1 -Current Size (cm) - Depth 0.1 -Total Square Cm 0.01 -Photo Taken No -Epithelialization Large 67-100% -Texture (Reina-wound Skin Appearance) Assessed, Excoriation, Rash -Moisture (Reina-wound Skin Appearance) Assessed, Maceration, Weeping -Color (Reina-wound Skin Appearance) Assessed, Erythema,Palor -Temperature (Reina-wound Skin No Abnormality Appearance) (Pt Warm) -Tenderness on Palpation (Reina-wound Yes Skin Appearance) -Ulcer Cleansing Wound Cleanser -Foul Odor after Cleansing No -Anesthetic Used 4% Lidocaine Solution Wound Center Nurse 1 Lower Limb Edema Present Yes Right Calf (cm) 48 Right Ankle (cm) 33.5 Right Foot (cm) 48.2 Left Calf (cm) 50 30.4 Left Ankle (cm) 32 WC - Nurse 2 - General Ulcer CM Notes Start: 10/03/20 08:39 Freq: Status: Active Protocol: Activity Type Activity Date Activity User E-Sign Co-Sign Detail Recorded Client Recorded Date Recorded By Document 10/08/20 12:12 [email or web address] [id number] 10/08/20 12:14 PL 10/08/20 12:12 Wound Center Nurse 2 #2- Left lateral le cluster -Time 10:44 -Correct Patient Yes -Correct Side, Site, Position Yes -Correct Procedure Yes -Procedure Performed Yes -Type of Procedure Debridement -Clinical Debridement Subcutaneous -Tissue Removed Subcutaneous -Post Debridement (cm) - Length 2.5 -Post Debridement (cm) - Width 0.4 -Post Debridement (cm) - Depth 0.2 -Total Square (Post) (cm) 1.00 -Area of Debridement (cm) - Length 2.5 -Area of Debridement (cm) - Width 0.4 -Total Square (Area) (cm) 1.00 -Tunneling No -Undermining/Tunneling No -Circular Undermining No -Wound/Ulcer Outcome Not Healed -Ulcer Cleansing Rinsed/ Irrigated with Saline -Foul Odor after Cleansing No -Bioengineered Tissue No -Bleeding Controlled with Pressure -Treatment Response Procedure Tolerated Well -Debridement - Subq, 1st 20sq cm Yes Pain Scale: 0-10 Numeric Is Patient Pain Free? Yes - Nurse 3 - General Ulcer D/C NN Start: 10/03/20 08:39 Freq: Status: Active Protocol: Activity Type Activity Date Activity User E-Sign Co-Sign Detail Recorded Client Recorded Date Recorded By Document 10/03/20 08:41 KR [id number] 10/03/20 08:42 KR Document 10/08/20 10:58 [facility] [id number] 10/08/20 10:59 [facility] 10/03/20 10/08/20 08:41 10:58 Wound Care Nurse 3 #2- Left lateral le cluster -Ulcer Cleansing Rinsed/ Rinsed/ Irrigated with Irrigated with Saline Saline -Foul Odor after Cleansing No -Primary Dressing Applied Aquacel AG 4x4 Aquacel AG 4x4 -Primary Dressing Covered/Secured with Dry Gauze,Dry Dry Gauze & Gauze & Roll Roll Gauze, Gauze,Secured Secured with with Tape Tape,Other -Other Covering drsg per d jennifer 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 Yes Yes WC - Visit Discharge Discharge Condition Stable Ambulatory Status Ambulatory Transportation Private [facility] Facility Type Home Health
[2020-10-15 10:04] VITALS: BP 140/70; PULSE 86; RESP 16; TEMP 37; BMI 41.5
--- NOTE | 2020-10-15 11:58 | PN.PCM_ITS ---
History of Present Illness Date of Service: 10/15/20 Chief Complaint: Nonhealing left lateral leg ulcer and bilateral leg edema /lymphedema with weeping/moist bilateral legs History of Wound: Mr. Garcia is a 65-year-old who was referred to the wound center due to nonhealing bilateral leg ulcers. Had presented to the emergency room at [facility] on the 05 of January due to significant bilateral lower extremity pain and redness. Managed for bilateral leg cellulitis. Discharged on the . Ulcers have been managed at home by home health. Was on Omnicef at discharge. Still reports significant predominantly left lower extremity pain. Edema is persistent with weeping, with no improvement with 3M 2layer wraps. History of diabetes mellitus type 2 which is not well controlled. Right leg ulcer has since healed. Wound care for left lateral leg ulcer cluster is Aquacel-Ag covered by gauze daily. He will apply Lac Hydrin lotion to lower legs and feet (except the ulcer area) twice daily. He is wrapping his legs in Kerlix before he uses Double tubigrips for compression. Venous Doppler study on 09/14/20 showed no evidence of DVT bilaterally. The right and left great saphenous vein appears incompetent below the knee. The accessory saphenous vein at the right sapheno-femoral junction is incompetent. The accessory saphenous vein in the right and left proximal calf are incompetent. Arterial studies on 09/14/20 with Triphasic Doppler waveforms at ankle bilaterally. Right ADONAY at dorsalis pedis is 1.35. Left ADONAY at dorsalis pedis is 1.23. He is scheduled to see Dr. Hyatt for further evaluation this week. He denies chills, fever, nausea or vomiting. Progress of Wound: The maceration has improved since stopping the Aquaphor that he was applying as instructed by Lluvia santos. He is now applying Lac-Hytrin lotion daily. Left lateral leg ulcer is improving. Objective Data Objective Data Vital Signs: Vital Signs Temp Pulse Resp BP Pulse Ox 98.6 F 86 16 140/70 H 97 10/15/20 10:04 10/15/20 10:04 10/15/20 10:04 10/15/20 10:04 09/25/20 00:15 Oxygen Delivery Method Room Air Weight: 255 lb Body Mass Index (BMI) 41.5 Physical Exam Const alert and oriented x3 General Appearance: cooperative HEENT normocephalic Lymph Lymphatic: Negative for no lymphedema noted Lymphatic Narrative: Bilateral lower legs with +3 edema and lymphedema Resp normal respiratory effort Cardio regular rate GI non-tender Extremity normal capillary refill General Extremity: edema Skin Skin Narrative: Bilateral lower legs with dry/flaky skin on proximal legs and feet. Lower bilateral legs edematous, pink and moist appearance. Wound Narrative: Left lateral leg ulcer is stable. Painful to palpation. Neuro CN's II-XII intact bilaterally Psych Appearance: grossly normal Debridement Note Debridement Note Post-Debridement Measurements and Additional Note: Post-Debridement Measurements/Treatment - Nurse 1 - General Ulcer Assessment Start: 10/03/20 08:39 Freq: Status: Active Protocol: [place] Activity Type Activity Date Activity User E-Sign Co-Sign Detail Recorded Client Recorded Date Recorded By Document 10/03/20 08:40 [id number] 10/03/20 08:41 Document 10/08/20 10:15 [facility] [id number] 10/08/20 10:23 [facility] Document 10/15/20 10:04 [facility] [id number] 10/15/20 10:12 [facility] 10/03/20 10/08/20 10/15/20 08:40 10:15 10:04 - Today's Visit Information Type of service Nurse-only Follow-up Visit Follow-up Visit Visit (Physician/UPPER MARKER (Physician/UPPER MARKER ) ) Arrival Mode Ambulatory Ambulatory Ambulatory Transfer Assistance None None Patient Identification Verified (Name & Yes Yes ) Patient Requires Transmission-Based No No Precautions Finger Stick Blood Sugar(mg/dl) (if 126 indicated): Blood Sugar Stated by Patient Height and Weight Body Mass Index (BMI) 41.5 41.5 41.5 BMI Classification Obese Obese Obese Vital Signs Temperature (97.8 F-99.1 F) 96.5 F L 98.5 F 98.6 F Temperature Source Temporal Temporal Temporal Pulse Rate (60-100) 80 95 86 Pulse Location Monitor Monitor Monitor Respiratory Rate (12-18) 18 16 Respiratory rate source Observation Observation Oxygen Delivery Method Room Air Room Air Blood Pressure (90/60-120/80) 121/65 H 129/72 H 140/70 H Blood Pressure Mean (mm Hg) 83 91 93 Source Monitor Monitor Monitor Position Sitting Sitting Sitting Blood Pressure Location Left Arm Left Arm Left Arm History Since Last Visit- (Skip if this is Patient's initial visit) Have you changed medications since your No No No last visit? Any new allergies or adverse reactions No No No Had a fall/change in ADL's that may No No No increase risk of falls Signs or symptoms of abuse and/or No No No neglect since last visit Have you been in the hospital since your No No No last visit? Has dressing in place as prescribed Yes No Yes Has compression in place as prescribed Yes No N/A Has offloadiing in place as prescribed N/A N/A N/A Experienced any changes in pain level or No No No management Left Footwear Regular Shoe Regular Shoe Right Footwear Regular Shoe Regular Shoe Pain Scale: 0-10 Numeric Is Patient Pain Free? Yes Yes Yes WC - Nurse 1 - General Ulcer Measurement Start: 10/03/20 08:39 Freq: Status: Active Protocol: Activity Type Activity Date Activity User E-Sign Co-Sign Detail Recorded Client Recorded Date Recorded By Document 10/03/20 08:40 [id number] 10/03/20 08:41 Document 10/08/20 10:15 [facility] [id number] 10/08/20 10:23 [facility] Document 10/15/20 10:04 [facility] [id number] 10/15/20 10:12 [facility] 10/03/20 10/08/20 10/15/20 08:40 10:15 10:04 #2- Left lateral le cluster -Combined with other wound No No -Current Size (cm) - Length 0.1 0.1 -Current Size (cm) - Width 0.1 0.1 -Current Size (cm) - Depth 0.1 0.1 -Total Square Cm 0.01 0.01 -Photo Taken No -Epithelialization Large 67-100% Large 67-100% -Texture (Reina-wound Skin Appearance) Assessed, Assessed, Excoriation, Excoriation, Rash Scarring,Rash -Moisture (Reina-wound Skin Appearance) Assessed, Assessed, Maceration, Maceration, Weeping Weeping -Color (Reina-wound Skin Appearance) Assessed, Assessed, Erythema,Palor Erythema,Palor -Temperature (Reina-wound Skin No Abnormality No Abnormality Appearance) (Pt Warm) (Pt Warm) -Tenderness on Palpation (Reina-wound Yes No Skin Appearance) -Ulcer Cleansing Wound Cleanser soapy water -Foul Odor after Cleansing No No -Anesthetic Used 4% Lidocaine 4% Lidocaine Solution Solution Wound Center Nurse 1 Lower Limb Edema Present Yes Yes Right Calf (cm) 48 47.6 Right Ankle (cm) 33.5 32.5 Right Foot (cm) 48.2 Left Calf (cm) 50 30.4 47.6 Left Ankle (cm) 32 29.7 WC - Nurse 2 - General Ulcer CM Notes Start: 10/03/20 08:39 Freq: Status: Active Protocol: Activity Type Activity Date Activity User E-Sign Co-Sign Detail Recorded Client Recorded Date Recorded By Document 10/08/20 12:12 PL [id number] 10/08/20 12:14 PL Document 10/15/20 10:56 JF [id number] 10/15/20 10:59 JF 10/08/20 10/15/20 12:12 10:56 Wound Center Nurse 2 #2- Left lateral le cluster -Time 10:44 10:57 -Correct Patient Yes Yes -Correct Side, Site, Position Yes Yes -Correct Procedure Yes Yes -Procedure Performed Yes Yes -Type of Procedure Debridement Debridement -Clinical Debridement Subcutaneous Subcutaneous -Tissue Removed Subcutaneous Subcutaneous -Post Debridement (cm) - Length 2.5 2.8 -Post Debridement (cm) - Width 0.4 0.5 -Post Debridement (cm) - Depth 0.2 0.1 -Total Square (Post) (cm) 1.00 1.40 -Area of Debridement (cm) - Length 2.5 2.8 -Area of Debridement (cm) - Width 0.4 0.5 -Total Square (Area) (cm) 1.00 1.40 -Tunneling No No -Undermining/Tunneling No No -Circular Undermining No No -Wound/Ulcer Outcome Not Healed Not Healed -Ulcer Cleansing Rinsed/ Rinsed/ Irrigated with Irrigated with Saline Saline -Foul Odor after Cleansing No No -Bioengineered Tissue No No -Bleeding Controlled with Pressure Pressure -Offloading No -Treatment Response Procedure Procedure Tolerated Well Tolerated Well -Debridement - Subq, 1st 20sq cm Yes Yes Pain Scale: 0-10 Numeric Is Patient Pain Free? Yes Yes - Nurse 3 - General Ulcer D/C NN Start: 10/03/20 08:39 Freq: Status: Active Protocol: Activity Type Activity Date Activity User E-Sign Co-Sign Detail Recorded Client Recorded Date Recorded By Document 10/03/20 08:41 [id number] 10/03/20 08:42 KR Document 10/08/20 10:58 [facility] [id number] 10/08/20 10:59 [facility] Document 10/15/20 11:17 [facility] [id number] 10/15/20 11:18 [facility] 10/03/20 10/08/20 10/15/20 08:41 10:58 11:17 Wound Care Nurse 3 #2- Left lateral le cluster -Ulcer Cleansing Rinsed/ Rinsed/ Rinsed/ Irrigated with Irrigated with Irrigated with Saline Saline Saline -Foul Odor after Cleansing No No -Primary Dressing Applied Aquacel AG 4x4 Aquacel AG 4x4 Silvercel -Primary Dressing Covered/Secured with Dry Gauze,Dry Dry Gauze & Dry Gauze & Gauze & Roll Roll Gauze, Roll Gauze, Gauze,Secured Secured with Secured with with Tape Tape,Other Tape,Other -Other Covering drsg per wu rodriguez drsg per kr note specialist note specialist -Aquacel AG 4x4 1 1 -Silvercel 1 Right -Tubular Bandage Double Layer Double Layer Double Layer -Size of Tubigrip Used Size F Size F Size F -Size F ($) 2 2 2 Left -Lotion applied to leg before No compression wrap -Tubular Bandage Double Layer Double Layer Double Layer -Size of Tubigrip Used Size F Size F Size F -Size F ($) 2 2 2 Treatment Response Procedure Procedure Tolerated Well Tolerated Well Pain Scale: 0-10 Numeric Is Patient Pain Free? Yes Yes Yes WC - Visit Discharge Discharge Condition Stable Stable Ambulatory Status Ambulatory Ambulatory Transportation Private [facility] Facility Type Home Health Home Health Wound debrided: Lateral leg ulcer Laterality: Left Type of Debridement: Excisional debridement Anesthesia Used: 5% Lidocaine Gel Depth: Down to and including healthy tissue and in the subcutaneous layer Percentage of wound debrided: 100 Instrument Used: 3mm curette Tissue Removed: Subcutaneous tissue and slough Severity: Fat Layer Exposed Amount of bleeding with debridement: Mild Bleeding Controlled with: Pressure Patient tolerated procedure: Patient tolerated procedure well Assessment/Plan Assessment/Plan (1) Ulcer of left lower extremity with fat layer exposed: CODE(S): L97.922 - Non-pressure chronic ulcer of unspecified part of left lower leg with fat layer exposed (2) Bilateral lower extremity edema: CODE(S): R60.0 - Localized edema (3) Lymphedema: CODE(S): I89.0 - Lymphedema, not elsewhere classified (4) Type 2 diabetes mellitus: CODE(S): E11.9 - Type 2 diabetes mellitus without complications QUALIFIERS: Qualified Code(s): Z79.4 - ocean transportation intermediary (current) use of insulin (5) Stasis dermatitis of both legs: CODE(S): I87.2 - Venous insufficiency (chronic) (peripheral) (6) Obesity (BMI 30-39.9): CODE(S): E66.9 - Obesity, unspecified PLAN: Subcutaneous debridement performed. Patient tolerated procedure well. Bilateral lower legs edematous. He saw dermatology a couple weeks ago and was told to use Aquaphor daily to lower extremities. His legs now are macerated. He sees Dr. Hyatt for further evaluation on Thursday10/17/20. Wound care- Aquacel-ag to the left lateral leg ulcer and cover with either Exelsap or Kerramax absorbent dressing daily and prn. He should wash his legs and ulcer daily with soap and water before he does his dressing changes. On the sloughing skin, will have him stop using the Aquaphor and start using Lac Hydrin lotion twice daily on his bilateral lower legs (except where the ulcer is located), ankles and feet. He will wrap his legs with Kerlix to help absorb his weeping legs and then use a double layer tubigrip. He may continue to use his lymphedema pumps at home as prescribed. Follow up one week for a nurse visit. Follow up with me 3 weeks, due to me taking a day off next week and the holiday the following week.
[2020-10-22 08:52] VITALS: BP 115/56; PULSE 92; RESP 20; TEMP 37; BMI 41.5
== END 2020-10-24 23:59 ==
LOC: WC 09:00
PROVIDERS: PCP Family Medicine; Referring Provider Family Medicine; Visit Provider Internal Medicine
DX: I89.0 Lymphedema, not elsewhere classified (principal); E11.621 Type 2 diabetes mellitus with foot ulcer; L97.922 Non-pressure chronic ulcer of unspecified part of left lower leg with fat layer exposed; R60.0 Localized edema; I87.2 Venous insufficiency (chronic) (peripheral); E66.9 Obesity, unspecified; Z79.4 Long term (current) use of insulin; Z68.41 Body mass index [BMI] 40.0-44.9, adult
CPT/HCPCS: 11042; 99212; 99213; G0463

== ENCOUNTER 2020-11-12 09:00 | Outpatient (RCR) | payer MEDICARE, SELFPAY ==
[2020-10-25 00:15] VITALS: BP 115/56; PULSE 92; RESP 20; TEMP 37; O2SAT 97
[2020-11-05 09:46] VITALS: BP 131/69; PULSE 94; RESP 16; TEMP 36.5; BMI 41.5
--- NOTE | 2020-11-05 12:19 | PN.PCM_ITS ---
History of Present Illness Date of Service: 11/05/20 Chief Complaint: Nonhealing left lateral leg ulcer and bilateral leg edema /lymphedema with weeping/moist bilateral legs History of Wound: Mr. Garcia is a 65-year-old who was referred to the wound center due to nonhealing bilateral leg ulcers. Had presented to the emergency room at [facility] on the 05 of January due to significant bilateral lower extremity pain and redness. Managed for bilateral leg cellulitis. Discharged on the . Ulcers have been managed at home by home health. Was on Omnicef at discharge. Still reports significant predominantly left lower extremity pain. Edema is persistent with weeping, with no improvement with 3M 2layer wraps. History of diabetes mellitus type 2 which is not well controlled. Right leg ulcer has since healed. Wound care for left lateral leg ulcer cluster is Aquacel-Ag covered by gauze daily. He will apply Lac Hydrin lotion to lower legs and feet (except the ulcer area) twice daily. He is wrapping his legs in Kerlix before he uses Double tubigrips for compression. Venous Doppler study on 09/14/20 showed no evidence of DVT bilaterally. The right and left great saphenous vein appears incompetent below the knee. The accessory saphenous vein at the right sapheno-femoral junction is incompetent. The accessory saphenous vein in the right and left proximal calf are incompetent. Arterial studies on 09/14/20 with Triphasic Doppler waveforms at ankle bilaterally. Right ADONAY at dorsalis pedis is 1.35. Left ADONAY at dorsalis pedis is 1.23. He saw Dr. Hyatt at the end of September. He is recommending increased compression, increase walking, better elevation and sleeping in a bed. He follows up with Dr. Hyatt in early November to start treatment on his legs. He denies chills, fever, nausea or vomiting. Progress of Wound: Left lateral leg ulcer is healed. Bilateral leg edema/lymphedema present. He continues to have some weeping on the lateral, distal portion of his legs. Objective Data Objective Data Vital Signs: Vital Signs Temp Pulse Resp BP Pulse Ox 97.7 F L 94 16 131/69 H 97 11/05/20 09:46 11/05/20 09:46 11/05/20 09:46 11/05/20 09:46 10/25/20 00:15 Oxygen Delivery Method Room Air Weight: 255 lb Body Mass Index (BMI) 41.5 Charges/Coding Visit Charges Office Visits / Consults: [id number] OV L3 Est Physical Exam Const alert and oriented x3 HEENT normocephalic Eyes PERRL Lymph Lymphatic: no lymphedema noted Lymphatic Narrative: Bilateral +3-+4 edema of lower extremities with lymphedema. He has some weeping on the lateral distal portion of his legs. Resp normal respiratory effort Cardio regular rate GI non-tender Extremity no calf tenderness Extremity Narrative: Bilateral edema/lymphedema of lower extremities General Extremity: edema Skin Skin Narrative: Legs with thick plaques of sloughing skin. Skin on legs is red, shiny and weeping on the lateral distal portion of legs bilaterally. Wound Narrative: Ulcers are healed today Neuro CN's II-XII intact bilaterally Psych Appearance: grossly normal Thought Process: normal thought process Debridement Note Debridement Note Post-Debridement Measurements and Additional Note: Post-Debridement Measurements/Treatment - Nurse 1 - General Ulcer Assessment Start: 11/05/20 09:46 Freq: Status: Active Protocol: [place] Activity Type Activity Date Activity User E-Sign Co-Sign Detail Recorded Client Recorded Date Recorded By Document 11/05/20 09:46 [facility] [id number] 11/05/20 09:48 [facility] 11/05/20 09:46 - Today's Visit Information Type of service Follow-up Visit (Physician/TRANSPORT CONDUCTOR ) Arrival Mode Ambulatory Transfer Assistance None Patient Identification Verified (Name & Yes ) Patient Requires Transmission-Based No Precautions Height and Weight Body Mass Index (BMI) 41.5 BMI Classification Obese Vital Signs Temperature (97.8 F-99.1 F) 97.7 F L Temperature Source Temporal Pulse Rate (60-100) 94 Pulse Location Monitor Respiratory Rate (12-18) 16 Respiratory rate source Observation Oxygen Delivery Method Room Air Blood Pressure (90/60-120/80) 131/69 H Blood Pressure Mean (mm Hg) 89 Source Monitor Position Sitting Blood Pressure Location Left Arm History Since Last Visit- (Skip if this is Patient's initial visit) Have you changed medications since your No last visit? Any new allergies or adverse reactions No Had a fall/change in ADL's that may No increase risk of falls Signs or symptoms of abuse and/or No neglect since last visit Have you been in the hospital since your No last visit? Has dressing in place as prescribed Yes Has compression in place as prescribed Yes Has offloadiing in place as prescribed N/A Experienced any changes in pain level or No management Left Footwear Regular Shoe Right Footwear Regular Shoe Pain Scale: 0-10 Numeric Is Patient Pain Free? Yes - Nurse 1 - General Ulcer Measurement Start: 11/05/20 09:46 Freq: Status: Active Protocol: Activity Type Activity Date Activity User E-Sign Co-Sign Detail Recorded Client Recorded Date Recorded By Document 11/05/20 09:46 [facility] [id number] 11/05/20 09:48 [facility] 11/05/20 09:46 Wound Center Nurse 1 #2- Left lateral le cluster -Combined with other wound No -Current Size (cm) - Length 0.1 -Current Size (cm) - Width 0.1 -Current Size (cm) - Depth 0.1 -Total Square Cm 0.01 -Photo Taken No -Epithelialization Large 67-100% -Texture (Reina-wound Skin Appearance) Assessed, Excoriation, Rash -Moisture (Reina-wound Skin Appearance) Assessed, Maceration,Dry/ Scaly -Color (Reina-wound Skin Appearance) Assessed, Erythema -Temperature (Reina-wound Skin No Abnormality Appearance) (Pt Warm) -Tenderness on Palpation (Reina-wound No Skin Appearance) Lower Limb Edema Present Yes Right Calf (cm) 47.5 Right Ankle (cm) 33.4 Left Calf (cm) 47 Left Ankle (cm) 30.5 - Nurse 3 - General Ulcer D/C NN Start: 11/05/20 09:46 Freq: Status: Active Protocol: Activity Type Activity Date Activity User E-Sign Co-Sign Detail Recorded Client Recorded Date Recorded By Document 11/05/20 10:45 [id number] 11/05/20 10:47 DL 11/05/20 10:45 Wound Care Nurse 3 #2- Left lateral le cluster -Ulcer Cleansing Wound Cleanser -Foul Odor after Cleansing No Right -Multi-Layered Wrap Application Multi-Layer Comp - Bilat ($ ) -Other ABDS Treatment Response Procedure Tolerated Well Pain Scale: 0-10 Numeric Is Patient Pain Free? Yes - Visit Discharge Discharge Condition Stable Ambulatory Status Ambulatory Transportation Private Auto No debridement was completed: No debridement was completed today Assessment/Plan Assessment/Plan (1) Ulcer of left lower extremity with fat layer exposed: CODE(S): L97.922 - Non-pressure chronic ulcer of unspecified part of left lower leg with fat layer exposed (2) Stasis dermatitis of both legs: CODE(S): I87.2 - Venous insufficiency (chronic) (peripheral) (3) Bilateral lower extremity edema: CODE(S): R60.0 - Localized edema (4) Lymphedema: CODE(S): I89.0 - Lymphedema, not elsewhere classified (5) Type 2 diabetes mellitus: CODE(S): E11.9 - Type 2 diabetes mellitus without complications QUALIFIERS: Qualified Code(s): Z79.4 - 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 Ulcers are healed. Edema needs better control. Will start Unaboots bilaterally. Will have ABD pads placed over weeping areas on bilateral distal, lateral legs. Will have the Unaboots changed three times per week to help prevent maceration from the drainage. He needs to wash legs well between changing Unaboots. He has home health to assist with the unaboots. He saw Dr. Hyatt on 10/17/20. He is encouraging him to walk an hour daily. Improve his compression, keep legs elevated and sleep in a bed. He will follow up in early November with Dr. Hyatt. He is continuing to use his compression boots at home. Follow up one week.
[2020-11-12 08:55] VITALS: BP 135/65; PULSE 95; RESP 18; TEMP 36.6; BMI 41.5
--- NOTE | 2020-11-12 12:53 | PN.PCM_ITS ---
History of Present Illness Date of Service: 11/12/20 Chief Complaint: Nonhealing left lateral leg ulcer and bilateral leg edema /lymphedema with weeping/moist bilateral legs History of Wound: Mr. Garcia is a 65-year-old who was referred to the wound center due to nonhealing bilateral leg ulcers. Had presented to the emergency room at [facility] on the 05 of January due to significant bilateral lower extremity pain and redness. Managed for bilateral leg cellulitis. Discharged on the . Ulcers have been managed at home by home health. Was on Omnicef at discharge. Still reports significant predominantly left lower extremity pain. Edema is persistent with weeping, with no improvement with 3M 2layer wraps. History of diabetes mellitus type 2 which is not well controlled. Right leg ulcer has since healed. Left lateral leg ulcer cluster is is now healed. He will apply Lac Hydrin lotion to lower legs and feet at the time of Profore wraps placed with super absorbent dressings 3 times per week. Venous Doppler study on 09/14/20 showed no evidence of DVT bilaterally. The right and left great saphenous vein appears incompetent below the knee. The accessory saphenous vein at the right sapheno-femoral junction is incompetent. The accessory saphenous vein in the right and left proximal calf are incompetent. Arterial studies on 09/14/20 with Triphasic Doppler waveforms at ankle bilaterally. Right ADONAY at dorsalis pedis is 1.35. Left ADONAY at dorsalis pedis is 1.23. He saw Dr. Hyatt at the end of September. He is recommending increased compression, increase walking, better elevation and sleeping in a bed. He follows up with Dr. Hyatt in early November to start treatment on his legs. He denies chills, fever, nausea or vomiting. Progress of Wound: Left lateral leg ulcer remains healed. Bilateral leg edema/lymphedema present. He continues to have some weeping on the lateral, distal portion of his legs. Patient did not like the Unaboots that he had on last week, although his legs have less sloughing skin present. Objective Data Objective Data Vital Signs: Vital Signs Temp Pulse Resp BP Pulse Ox 97.8 F 95 18 135/65 H 97 11/12/20 08:55 11/12/20 08:55 11/12/20 08:55 11/12/20 08:55 10/25/20 00:15 Oxygen Delivery Method Room Air Weight: 255 lb Body Mass Index (BMI) 41.5 Charges/Coding Visit Charges Office Visits / Consults: 29417 OV L3 Est Physical Exam Const alert and oriented x3 General Appearance: cooperative HEENT normocephalic Eyes PERRL Lymph Lymphatic Narrative: Bilateral lower extremity lymphedema with some weeping distal portion of bilateral legs. Resp normal respiratory effort Cardio regular rate GI non-tender Palpation: soft Extremity normal capillary refill General Extremity: edema Skin Skin Narrative: Bilateral lower extremities edematous, pink, there is decreased sloughing of skin this week. No pain with palpation. There continues to be weeping of the distal legs bilaterally. No open wounds. Neuro CN's II-XII intact bilaterally Psych Appearance: grossly normal Debridement Note Debridement Note Post-Debridement Measurements and Additional Note: Post-Debridement Measurements/Treatment - Nurse 1 - General Ulcer Assessment Start: 11/05/20 09:46 Freq: Status: Active Protocol: .EDITH Activity Type Activity Date Activity User E-Sign Co-Sign Detail Recorded Client Recorded Date Recorded By Document 11/05/20 09:46 [facility] [id number] 11/05/20 09:48 [facility] Document 11/12/20 08:55 [facility] [id number] 11/12/20 09:00 [facility] 11/05/20 11/12/20 09:46 08:55 - Today's Visit Information Type of service Follow-up Visit Follow-up 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 (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 (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 ) ) Arrival Mode Ambulatory Ambulatory Transfer Assistance None None Patient Identification Verified (Name & Yes Yes ) Patient Requires Transmission-Based No No Precautions Height and Weight Body Mass Index (BMI) 41.5 41.5 BMI Classification Obese Obese Vital Signs Temperature (97.8 F-99.1 F) 97.7 F L 97.8 F Temperature Source Temporal Temporal Pulse Rate (60-100) 94 95 Pulse Location Monitor Monitor Respiratory Rate (12-18) 16 18 Respiratory rate source Observation Observation Oxygen Delivery Method Room Air Room Air Blood Pressure (90/60-120/80) 131/69 H 135/65 H Blood Pressure Mean (mm Hg) 89 88 Source Monitor Monitor Position Sitting Sitting Blood Pressure Location Left Arm Right Forearm History Since Last Visit- (Skip if this is Patient's initial visit) Have you changed medications since your No No last visit? Any new allergies or adverse reactions No No Had a fall/change in ADL's that may No No increase risk of falls Signs or symptoms of abuse and/or No No neglect since last visit Have you been in the hospital since your No No last visit? Has dressing in place as prescribed Yes Has compression in place as prescribed Yes Has offloadiing in place as prescribed N/A N/A Experienced any changes in pain level or No No management Left Footwear Regular Shoe Regular Shoe Right Footwear Regular Shoe Regular Shoe Pain Scale: 0-10 Numeric Is Patient Pain Free? Yes Yes - Nurse 1 - General Ulcer Measurement Start: 11/05/20 09:46 Freq: Status: Active Protocol: Activity Type Activity Date Activity User E-Sign Co-Sign Detail Recorded Client Recorded Date Recorded By Document 11/05/20 09:46 [facility] [id number] 11/05/20 09:48 [facility] Document 11/12/20 08:55 [facility] [id number] 11/12/20 09:00 [facility] 11/05/20 11/12/20 09:46 08:55 Wound Center Nurse 1 #2- Left lateral le cluster -Combined with other wound No No -Current Size (cm) - Length 0.1 0.1 -Current Size (cm) - Width 0.1 0.1 -Current Size (cm) - Depth 0.1 0.1 -Total Square Cm 0.01 0.01 -Photo Taken No No -Epithelialization Large 67-100% Large 67-100% -Texture (Reina-wound Skin Appearance) Assessed, Assessed, Excoriation, Excoriation, Rash Scarring -Moisture (Reina-wound Skin Appearance) Assessed, Assessed, Maceration,Dry/ Maceration, Scaly Weeping -Color (Reina-wound Skin Appearance) Assessed, Assessed, Erythema Erythema,Palor -Temperature (Reina-wound Skin No Abnormality No Abnormality Appearance) (Pt Warm) (Pt Warm) -Tenderness on Palpation (Reina-wound No No Skin Appearance) -Ulcer Cleansing Rinsed/ Irrigated with Saline -Foul Odor after Cleansing No -Anesthetic Used 4% Lidocaine Solution Lower Limb Edema Present Yes Yes Right Calf (cm) 47.5 48.8 Right Ankle (cm) 33.4 33.4 Left Calf (cm) 47 49.4 Left Ankle (cm) 30.5 30.5 - Nurse 3 - General Ulcer D/C NN Start: 11/05/20 09:46 Freq: Status: Active Protocol: Activity Type Activity Date Activity User E-Sign Co-Sign Detail Recorded Client Recorded Date Recorded By Document 11/05/20 10:45 DL [id number] 11/05/20 10:47 DL Document 11/12/20 10:27 KR [id number] 11/12/20 10:28 KR 11/05/20 11/12/20 10:45 10:27 Wound Care Nurse 3 #2- Left lateral le cluster -Ulcer Cleansing Wound Cleanser -Foul Odor after Cleansing No Left -Multi-Layered Wrap Application Profore Right -Multi-Layered Wrap Application Multi-Layer Profore Comp - Bilat ($ ) -Other ABDS Treatment Response Procedure Tolerated Well Pain Scale: 0-10 Numeric Is Patient Pain Free? 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 Ulcers are healed. Edema needs better control. Had Unaboots bilaterally last week. The patient did not like them, he states that they were messy. Will switch to Profore wraps with super absorbent pads bilaterally. Will have the Profore wraps changed three times per week to help prevent maceration from the drainage. He needs to wash legs well between changes. He has home health to assist with the wraps. Once there is better control of his edema, he has compression stockings that Dr. Hyatt ordered him that he is not able to wear due to being too tight. He saw Dr. Hyatt on 10/17/20. He is encouraging him to walk an hour daily. Improve his compression, keep legs elevated and sleep in a bed. He will follow up with Dr. Hyatt on December 03. He is continuing to use his compression boots at home. Follow up two weeks.
== END 2020-11-24 23:59 ==
LOC: WC 09:00
PROVIDERS: PCP Family Medicine; Referring Provider Family Medicine; Visit Provider Nurse Practitioner Family
DX: I89.0 Lymphedema, not elsewhere classified (principal); R60.9 Edema, unspecified; E11.9 Type 2 diabetes mellitus without complications; E66.9 Obesity, unspecified; Z68.41 Body mass index [BMI] 40.0-44.9, adult; Z79.4 Long term (current) use of insulin
CPT/HCPCS: 29581; 87070; 87075; 87077; 87186; 87205; 99213; G0463

== ENCOUNTER 2020-12-17 00:04 | Emergency (ER) | payer MEDICARE, SELFPAY ==
[2020-12-17 00:07] VITALS: BP 133/64; PULSE 111; RESP 20; TEMP 36.9; O2SAT 94; BMI 41.1
[2020-12-17 00:12] VITALS: O2SAT 93
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
[2020-12-17 00:50] LABS: Absolute Lymphocyte Count 0.72 X10^3/uL (0.83-4.51); Absolute Neutrophil Count 4.9 X10^3/uL (2.0-7.7); Basophil# 0.03 X10^3/uL; Basophil% 0.4 % (0-1); Eosinophil# 0.59 X10^3/uL; Eosinophils% 8.5 % (0-5); Hematocrit 33.8 % (40-54); Hemoglobin 10.6 g/dL (13.0-16.5); Lymphocyte # 0.72 X10^3/ul (0.83-4.51); Lymphocyte % 10.4 % (19-41); Mean Corp Hgb Conc 31.4 g/dL (32-36); Mean Corpuscular Hgb 29.4 pg (27.0-32.0); Mean Corpuscular Volume 93.6 fL (80-94); Mean Platelet Vol. 9.6 fl (6.2-12.0); Monocyte# 0.62 X10^3/uL; Monocyte% 8.9 % (0-10); NRBC Flagged by Analyzer 0 % (0-5); Neutrophil # 4.91 X10^3/uL (2.7-7.7); Neutrophil % 70.8 % (47-70); Platelet Count 269 K/mm3 (150-450); RBC Distribution Width CV 15.9 % (11.6-14.6); Red Blood Count 3.61 M/mm3 (4.6-6.2); White Blood Count 6.9 K/mm3 (4.4-11.0)
[2020-12-17 01:03] LABS: ALB/GLOB Ratio 0.5 RATIO (0.9-2.4); AST(SGOT) 38 U/L (15-37); Alanine Aminotransfer ALT/SGPT 26 U/L (16-61); Albumin, Serum 2.5 g/dL (3.2-5.0); Alkaline Phosphatase 96 U/L (45-117); Anion Gap 10 (5-15); BUN 14 mg/dL (7-18); BUN/Creat Ratio 10.9 RATIO (10-20); Calcium,Total 8.5 mg/dL (8.5-10.1); Chloride 101 mmol/L (98-107); Creatinine, Serum 1.28 mg/dL (0.70-1.30); EST Glomerular Filtration Rate 60 mL/min (>60); Est Glom Filt Rate - Afr Amer 72 mL/min (>60); Estimated Creatinine Clearance 57.82 ml/min; Globulin 5.1 g/dL (2.2-4.2); Glucose 233 mg/dL (74-106); Protein, Total 7.6 g/dL (6.4-8.2); Sodium Level 135 mmol/L (136-145)
[2020-12-17 02:26] VITALS: BP 156/89; PULSE 118; RESP 18; O2SAT 93
== END 2020-12-17 02:27 | disposition home or self-care (01) ==
PROVIDERS: Emergency Provider Emergency Medicine; PCP Family Medicine
DX: S02.2XXA Fracture of nasal bones, initial encounter for closed fracture (principal); V89.0XXA Person injured in unspecified motor-vehicle accident, nontraffic, initial encounter; I25.2 Old myocardial infarction; Y92.410 Unspecified street and highway as the place of occurrence of the external cause; Z87.891 Personal history of nicotine dependence
CPT/HCPCS: 70450; 71046; 72125; 80053; 82077; 85025; 93005; 99285

== ENCOUNTER 2020-12-25 08:45 | Outpatient (RCR) | payer MEDICARE, SELFPAY ==
[2020-11-25 00:19] VITALS: BP 135/65; PULSE 95; RESP 18; TEMP 36.6; O2SAT 97
[2020-11-26 09:01] VITALS: BP 114/56; PULSE 98; RESP 20; TEMP 36.6; BMI 41.5
--- NOTE | 2020-11-26 09:58 | PN.PCM_ITS ---
History of Present Illness Date of Service: 11/26/20 Chief Complaint: Nonhealing left lateral leg ulcer and bilateral leg edema /lymphedema with weeping/moist bilateral legs History of Wound: Mr. Garcia is a 65-year-old who was referred to the wound center due to nonhealing bilateral leg ulcers. Had presented to the emergency room at [facility] on the 05 of January due to significant bilateral lower extremity pain and redness. Managed for bilateral leg cellulitis. Discharged on the . Ulcers have been managed at home by home health. Was on Omnicef at discharge. Still reports significant predominantly left lower extremity pain. Edema is persistent with weeping, with no improvement with 3M 2layer wraps. History of diabetes mellitus type 2 which is not well controlled. Right leg ulcer has since healed. Left lateral leg ulcer cluster is is now healed. He will apply Lac Hydrin lotion to lower legs and feet at the time of Profore wraps placed with super absorbent dressings 3 times per week. Venous Doppler study on 09/14/20 showed no evidence of DVT bilaterally. The right and left great saphenous vein appears incompetent below the knee. The accessory saphenous vein at the right sapheno-femoral junction is incompetent. The accessory saphenous vein in the right and left proximal calf are incompetent. Arterial studies on 09/14/20 with Triphasic Doppler waveforms at ankle bilaterally. Right ADONAY at dorsalis pedis is 1.35. Left ADONAY at dorsalis pedis is 1.23. He saw Dr. Hyatt at the end of September and is scheduled to see him again 12/03/20. He is recommending increased compression, increase walking, better elevation and sleeping in a bed. He denies chills, fever, nausea or vomiting. Progress of Wound: No open wounds. Bilateral legs are red, edematous and weeping. Objective Data Objective Data Vital Signs: Vital Signs Temp Pulse Resp BP Pulse Ox 98 F 98 20 H 114/56 L 97 11/26/20 09:01 11/26/20 09:01 11/26/20 09:01 11/26/20 09:01 11/25/20 00:19 Weight: 255 lb Body Mass Index (BMI) 41.5 Charges/Coding Visit Charges Office Visits / Consults: 09402 OV L4 Est Physical Exam Const alert and oriented x3 HEENT normocephalic Eyes PERRL Neck supple Lymph Lymphatic Narrative: Bilateral lower leg edema and lymphedema with weeping on the distal legs and ankles. Resp normal respiratory effort Cardio regular rate GI non-tender Palpation: soft Extremity General Extremity: edema Skin Skin Narrative: No wounds. Bilateral legs with thick, flaking plaques especially over thighs, knees, proximal legs, ankles and feet bilateral. Bilateral legs are dark pink, tight and shiny. Weeping distal, lateral legs bilaterally. Neuro CN's II-XII intact bilaterally Psych Appearance: grossly normal Debridement Note Debridement Note Post-Debridement Measurements and Additional Note: Post-Debridement Measurements/Treatment - Nurse 1 - General Ulcer Assessment Start: 11/26/20 09:01 Freq: Status: Active Protocol: [place] Activity Type Activity Date Activity User E-Sign Co-Sign Detail Recorded Client Recorded Date Recorded By Document 11/26/20 09:01 LAI [id number] 11/26/20 09:03 DL 11/26/20 09:01 WC - Today's Visit Information Type of service Follow-up Visit (Physician/ARCHIVAL STUDIES PROFESSOR ) Arrival Mode Ambulatory Transfer Assistance None Patient Identification Verified (Name & Yes ) Patient Requires Transmission-Based No Precautions Height and Weight Body Mass Index (BMI) 41.5 BMI Classification Obese Vital Signs Temperature (97.8 F-99.1 F) 98 F Temperature Source Temporal Pulse Rate (60-100) 98 Respiratory Rate (12-18) 20 H Respiratory rate source Observation Blood Pressure (90/60-120/80) 114/56 L Blood Pressure Mean (mm Hg) 75 Source Monitor History Since Last Visit- (Skip if this is Patient's initial visit) Have you changed medications since your No last visit? Any new allergies or adverse reactions No Had a fall/change in ADL's that may No increase risk of falls Signs or symptoms of abuse and/or No neglect since last visit Have you been in the hospital since your No last visit? Has dressing in place as prescribed Yes Has compression in place as prescribed Yes Has offloadiing in place as prescribed N/A Experienced any changes in pain level or No management Left Footwear Slipper Right Footwear Slipper Pain Scale: 0-10 Numeric Is Patient Pain Free? Yes - Nurse 1 - General Ulcer Measurement Start: 11/26/20 09:01 Freq: Status: Active Protocol: Activity Type Activity Date Activity User E-Sign Co-Sign Detail Recorded Client Recorded Date Recorded By Document 11/26/20 09:01 DL [id number] 11/26/20 09:03 DL Edit Result 11/26/20 09:01 DL (1) [id number] 11/26/20 09:10 DL (1) #2- Left lateral le cluster - Current Size (cm) - Length => 0 - Current Size (cm) - Width => 0 - Current Size (cm) - Depth => 0 - Total Square Cm => 0 - Photo Taken => Yes - Exudate Amt => None Present - Wound Margin => Flat & Intact - Granulation Amt => Large (67-100%) - Granulation Quality => Red - Necrosis Amt => None Present (0%) - Structure Exposed => N/A - Texture (Reina-wound Skin Appearance) => Excoriation, => Scarring - Moisture (Reina-wound Skin Appearance) => Weeping - Temperature (Reina-wound Skin => No Abnormality (Pt Appearance) => Warm) - Tenderness on Palpation (Reina-wound => No Skin Appearance) - Ulcer Cleansing => Wound Cleanser - Foul Odor after Cleansing => No 11/26/20 09:01 Wound Center Nurse 1 #2- Left lateral le cluster -Current Size (cm) - Length 0 -Current Size (cm) - Width 0 -Current Size (cm) - Depth 0 -Total Square Cm 0 -Photo Taken Yes -Exudate Amt None Present -Wound Margin Flat & Intact -Granulation Amt Large (67-100%) -Granulation Quality Red -Necrosis Amt None Present (0 %) -Structure Exposed N/A -Texture (Reina-wound Skin Appearance) Excoriation, Scarring -Moisture (Reina-wound Skin Appearance) Weeping -Temperature (Reina-wound Skin No Abnormality Appearance) (Pt Warm) -Tenderness on Palpation (Reina-wound No Skin Appearance) -Ulcer Cleansing Wound Cleanser -Foul Odor after Cleansing No Right Calf (cm) 48 Right Ankle (cm) 32 Left Calf (cm) 48 Left Ankle (cm) 30 WC - Nurse 2 - General Ulcer CM Notes Start: 11/26/20 09:01 Freq: Status: Active Protocol: Activity Type Activity Date Activity User E-Sign Co-Sign Detail Recorded Client Recorded Date Recorded By Document 11/26/20 09:22 [id number] 11/26/20 09:25 JF 11/26/20 09:22 Pain Scale: 0-10 Numeric Is Patient Pain Free? Yes - Nurse 3 - General Ulcer D/C NN Start: 11/26/20 09:01 Freq: Status: Active Protocol: Activity Type Activity Date Activity User E-Sign Co-Sign Detail Recorded Client Recorded Date Recorded By Document 11/26/20 09:51 DL [id number] 11/26/20 09:52 DL 11/26/20 09:51 Wound Care Nurse 3 Left -Multi-Layered Wrap Application Profore Right -Multi-Layered Wrap Application Profore Treatment Response Procedure Tolerated Well Pain Scale: 0-10 Numeric Is Patient Pain Free? Yes WC - Visit Discharge Discharge Condition Stable Ambulatory Status Ambulatory Transportation Private [facility] Facility Type Home Health Orders Sent Yes No debridement was completed: No debridement was completed today Assessment/Plan Assessment/Plan (1) Bilateral lower extremity edema: CODE(S): R60.0 - Localized edema (2) Lymphedema: CODE(S): I89.0 - Lymphedema, not elsewhere classified (3) Morbid obesity: CODE(S): E66.01 - Morbid (severe) obesity due to excess calories (4) Stasis dermatitis of both legs: CODE(S): I87.2 - Venous insufficiency (chronic) (peripheral) (5) Type 2 diabetes mellitus: CODE(S): E11.9 - Type 2 diabetes mellitus without complications 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 Ulcers are healed. Edema needs better control. Using Profore wraps with super absorbent pads bilaterally. Will have the Profore wraps changed three times per week to help prevent maceration from the drainage. He needs to wash legs well between changes. He has home health to assist with the wraps. According to the patient home health has not been coming out to help him with his Profore wraps. Unsure if he has been wearing any compression. Once there is better control of his edema, he has compression stockings that Dr. Hyatt ordered him that he is not able to wear due to being too tight. He saw Dr. Hyatt on 10/17/20. He is encouraging him to walk an hour daily. Improve his compression, keep legs elevated and sleep in a bed. He will follow up with Dr. Hyatt on December 03. He also sees Dermatology 12/03/20. Ordered lymphedema clinic through OT. He has not heard from them, so we will reconsult them. He is continuing to use his compression boots at home. Follow up two weeks.
[2020-12-10 08:52] VITALS: BP 118/64; PULSE 95; RESP 18; TEMP 36.4; BMI 41.5
--- NOTE | 2020-12-10 09:32 | PN.PCM_ITS ---
History of Present Illness Date of Service: 12/10/20 Chief Complaint: Nonhealing left lateral leg ulcer and bilateral leg edema /lymphedema with weeping/moist bilateral legs History of Wound: Mr. Garcia is a 65-year-old who was referred to the wound center due to nonhealing bilateral leg ulcers. Had presented to the emergency room at [facility] on the 05 of January due to significant bilateral lower extremity pain and redness. Managed for bilateral leg cellulitis. Discharged on the . Ulcers have been managed at home by home health. Was on Omnicef at discharge. Still reports significant predominantly left lower extremity pain. Edema is persistent with weeping, with no improvement with 3M 2layer wraps. History of diabetes mellitus type 2 which is not well controlled. Right leg ulcer has since healed. Left lateral leg ulcer cluster is is now healed. He will apply Lac Hydrin lotion to lower legs and feet at the time of Profore wraps placed with super absorbent dressings 3 times per week. Venous Doppler study on 09/14/20 showed no evidence of DVT bilaterally. The right and left great saphenous vein appears incompetent below the knee. The accessory saphenous vein at the right sapheno-femoral junction is incompetent. The accessory saphenous vein in the right and left proximal calf are incompetent. Arterial studies on 09/14/20 with Triphasic Doppler waveforms at ankle bilaterally. Right ADONAY at dorsalis pedis is 1.35. Left ADONYA at dorsalis pedis is 1.23. He saw Dr. Hyatt at the end of September and saw him again on 12/03/20. He is recommending increased compression, increase walking, better elevation and sleeping in a bed. He also is going to do some laser treatments on his veins. He states that dermatology didn't say much about his red legs with sloughing skin. He has been referred to the lymphedema clinic for further edema management. He denies chills, fever, nausea or vomiting. Progress of Wound: No open wounds. Bilateral legs are red, edematous and weeping with sloughing skin over lower extremities bilaterally. Objective Data Objective Data Vital Signs: Vital Signs Temp Pulse Resp BP Pulse Ox 97.6 F L 95 18 118/64 97 12/10/20 08:52 12/10/20 08:52 12/10/20 08:52 12/10/20 08:52 11/25/20 00:19 Oxygen Delivery Method Room Air Weight: 255 lb Body Mass Index (BMI) 41.5 Charges/Coding Visit Charges Office Visits / Consults: [id number] OV L3 Est Physical Exam Const alert and oriented x3 General Appearance: cooperative HEENT normocephalic Eyes PERRL Lymph Lymphatic Narrative: Bilateral lower extremity lymphedema. Resp normal respiratory effort Cardio regular rate GI normal to inspection, nondistended, normoactive bowel sounds Extremity normal capillary refill General Extremity: edema Skin Skin Narrative: Bilateral legs are red, with large plaques of sloughing skin. Bilateral lower legs are weeping and edematous. No open ulcers. Neuro CN's II-XII intact bilaterally Psych Appearance: grossly normal Debridement Note Debridement Note Post-Debridement Measurements and Additional Note: Post-Debridement Measuremen ts/Treatment WC - Nurse 1 - General Ulcer Assessment Start: 11/26/20 09:01 Freq: Status: Active Protocol: [email or web address] Activity Type Activity Date Activity User E-Sign Co-Sign Detail Recorded Client Recorded Date Recorded By Document 11/26/20 09:01 DL [id number] 11/26/20 09:03 DL Document 12/10/20 08:52 DL [id number] 12/10/20 08:54 DL 11/26/20 12/10/20 09:01 08:52 WC - Today's Visit Information Type of service Follow-up Visit Follow-up Visit (Physician/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 (Physician/MOTOR COACH DRIVER ) ) Arrival Mode Ambulatory Ambulatory Transfer Assistance None None Patient Identification Verified (Name & Yes Yes ) Patient Requires Transmission-Based No No Precautions Height and Weight Body Mass Index (BMI) 41.5 41.5 BMI Classification Obese Obese Vital Signs Temperature (97.8 F-99.1 F) 98 F 97.6 F L Temperature Source Temporal Temporal Pulse Rate (60-100) 98 95 Pulse Location Monitor Respiratory Rate (12-18) 20 H 18 Respiratory rate source Observation Observation Oxygen Delivery Method Room Air Blood Pressure (90/60-120/80) 114/56 L 118/64 Blood Pressure Mean (mm Hg) 75 82 Source Monitor Monitor Position Sitting Blood Pressure Location Left Arm History Since Last Visit- (Skip if this is Patient's initial visit) Have you changed medications since your No No last visit? Any new allergies or adverse reactions No No Had a fall/change in ADL's that may No No increase risk of falls Signs or symptoms of abuse and/or No No neglect since last visit Have you been in the hospital since your No No last visit? Has dressing in place as prescribed Yes No Has compression in place as prescribed Yes No Has offloadiing in place as prescribed N/A N/A Experienced any changes in pain level or No No management Left Footwear Slipper Regular Shoe Right Footwear Slipper Regular Shoe Pain Scale: 0-10 Numeric Is Patient Pain Free? Yes Yes WC - Nurse 1 - General Ulcer Measurement Start: 11/26/20 09:01 Freq: Status: Active Protocol: Activity Type Activity Date Activity User E-Sign Co-Sign Detail Recorded Client Recorded Date Recorded By Document 11/26/20 09:01 DL [id number] 11/26/20 09:03 DL Edit Result 11/26/20 09:01 DL (1) [id number] 11/26/20 09:10 DL Document 12/10/20 08:52 DL [id number] 12/10/20 08:54 DL (1) #2- Left lateral le cluster - Current Size (cm) - Length => 0 - Current Size (cm) - Width => 0 - Current Size (cm) - Depth => 0 - Total Square Cm => 0 - Photo Taken => Yes - Exudate Amt => None Present - Wound Margin => Flat & Intact - Granulation Amt => Large (67-100%) - Granulation Quality => Red - Necrosis Amt => None Present (0%) - Structure Exposed => N/A - Texture (Reina-wound Skin Appearance) => Excoriation, => Scarring - Moisture (Reina-wound Skin Appearance) => Weeping - Temperature (Reina-wound Skin => No Abnormality (Pt Appearance) => Warm) - Tenderness on Palpation (Reina-wound => No Skin Appearance) - Ulcer Cleansing => Wound Cleanser - Foul Odor after Cleansing => No 11/26/20 12/10/20 09:01 08:52 Wound Center Nurse 1 #2- Left lateral le cluster -Current Size (cm) - Length 0 -Current Size (cm) - Width 0 -Current Size (cm) - Depth 0 -Total Square Cm 0 -Photo Taken Yes -Exudate Amt None Present -Wound Margin Flat & Intact -Granulation Amt Large (67-100%) -Granulation Quality Red -Necrosis Amt None Present (0 %) -Structure Exposed N/A -Texture (Reina-wound Skin Appearance) Excoriation, Scarring -Moisture (Reina-wound Skin Appearance) Weeping -Temperature (Reina-wound Skin No Abnormality Appearance) (Pt Warm) -Tenderness on Palpation (Reina-wound No Skin Appearance) -Ulcer Cleansing Wound Cleanser -Foul Odor after Cleansing No Lower Limb Edema Present Yes Right Calf (cm) 48 47.2 Right Ankle (cm) 32 33 Left Calf (cm) 48 45 Left Ankle (cm) 30 30 - Nurse 2 - General Ulcer CM Notes Start: 11/26/20 09:01 Freq: Status: Active Protocol: Activity Type Activity Date Activity User E-Sign Co-Sign Detail Recorded Client Recorded Date Recorded By Document 11/26/20 09:22 [id number] 11/26/20 09:25 Document 12/10/20 09:12 [id number] 12/10/20 09:13 11/26/20 12/10/20 09:22 09:12 Pain Scale: 0-10 Numeric Is Patient Pain Free? 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 Yes Yes - Visit Discharge Discharge Condition Stable Stable Ambulatory Status Ambulatory Ambulatory Transportation Private Auto Private Auto Facility Type Home Health Orders Sent Yes No debridement was completed: No debridement was completed today Assessment/Plan Assessment/Plan (1) Bilateral lower extremity edema: CODE(S): R60.0 - Localized edema (2) Lymphedema: CODE(S): I89.0 - Lymphedema, not elsewhere classified (3) Morbid obesity: CODE(S): E66.01 - Morbid (severe) obesity due to excess calories (4) Type 2 diabetes mellitus: CODE(S): E11.9 - Type 2 diabetes mellitus without complications QUALIFIERS: Diabetes mellitus complication detail: with other skin complication Diabetes mellitus complication status: with skin complications Diabetes mellitus long term care social worker insulin use: with long term care social worker use Qualified Code(s): E11.628 - Type 2 diabetes mellitus with other skin complications; Z79.4 - terminal makeup operator (current) use of insulin (5) Systolic CHF, chronic: CODE(S): I50.22 - Chronic systolic (congestive) heart failure (6) Stasis dermatitis of both legs: CODE(S): I87.2 - Venous insufficiency (chronic) (peripheral) PLAN: Bilateral lower legs edematous with lymphedema. Ulcers are healed. Edema needs better control. Using Profore wraps with super absorbent pads bilaterally. Will have the Profore wraps changed three times per week to help prevent maceration from the drainage. He needs to wash legs well between changes with soap and water. He has home health to assist with the wraps. Once there is better control of his edema, he has compression stockings that Dr. Hyatt ordered him that he is not able to wear due to being too tight. He saw Dr. Hyatt on 10/17/20. He is encouraging him to walk an hour daily. Improve his compression, keep legs elevated and sleep in a bed. He followed up with Dr. Hyatt on December 03 and there is a plan to do laser treatments on his veins. He also saw Dermatology 12/03/20 which they did not comment on his bilateral lower extremity. Continue home lymphedema pumps. Ordered lymphedema clinic through OT. He has not heard from them, so we will reconsult them. Had a conversation with him about eating low sodium foods. Some of this edema could be related to his chronic CHF. Discussed eating fresh and fresh/frozen f oods. Staying away from processed foods and canned goods because they have a lot hidden sodium in them which could make his CHF and swelling worse. Try shopping around the outer perimeter of the store, except for the deli area. This is the area in which the healthier lower sodium foods are kept. Patient verbalized understanding. I am referring him to Dr. Fine for an evaluation of other options to help control the redness and skin sloughing. He had previously been on triamcinolone cream which did help improve his symptoms, but I do not feel comfortable having him on a steroid cream for long periods of time. Follow up when scheduled with Dr. Fine.
[2020-12-25 09:50] VITALS: BP 140/87; PULSE 97; TEMP 36.2; BMI 41.5
--- NOTE | 2020-12-25 09:52 | NURSING ---
Both LE are red, scaly, and seeping a large amount -serosanguineous
--- NOTE | 2020-12-25 15:09 | PCM.WC.HP ---
History of Present Illness Date of Service: 12/25/20 Chief Complaint: Severe bilateral lower extremity swelling and edema with diffuse, erythematous exfoliative dermatitic changes History of Wound: This is a 65-year-old who [facility] to nonhealing bilateral leg ulcers. He had presented to the emergency room at [facility] on the 05 of January due to significant bilateral lower extremity pain and redness. Managed for bilateral leg cellulitis. Discharged on the . Ulcers have been managed at home by home health. Was on Omnicef at discharge. Still reports significant predominantly left lower extremity pain. Edema is persistent with weeping, with no improvement with 3M 2layer wraps. History of diabetes mellitus type 2 which is not well controlled. Right leg ulcer has since healed. Left lateral leg ulcer cluster is is now healed. He will apply Lac Hydrin lotion to lower legs and feet at the time of Profore wraps placed with super absorbent dressings 3 times per week. Venous Doppler study on 09/14/20 showed no evidence of DVT bilaterally. The right and left great saphenous vein appears incompetent below the knee. The accessory saphenous vein at the right sapheno-femoral junction is incompetent. The accessory saphenous vein in the right and left proximal calf are incompetent. Arterial studies on 09/14/20 with Triphasic Doppler waveforms at ankle bilaterally. Right ADONAY at dorsalis pedis is 1.35. Left ADONAY at dorsalis pedis is 1.23. He saw Dr. Hyatt at the end of September and saw him again on 12/03/20. He is recommending increased compression, increase walking, better elevation and sleeping in a bed. He also is going to do some laser treatments on his veins. He states that dermatology didn't say much about his red legs with sloughing skin. He has been referred to [facility] for further edema management. He denies chills, fever, nausea or vomiting. Progress of Wound: No open wounds. Bilateral legs are red, edematous and weeping with sloughing skin over lower extremities bilaterally. [facility] Medical History (Updated 12/25/20 @ 15:[address] Sukhdeep Fine MD) Chronic venous insufficiency Myocardial infarct Ulcer of left lower extremity with fat layer exposed Ulcer of right lower extremity with fat layer exposed Home Medications aspirin 81 mg PO DAILY@0800 #30 tab.chew 02/21/17 [Rx Last Taken Unknown] pantoprazole 40 mg PO DAILY #30 tab 02/21/17 [Rx Last Taken Unknown] acetaminophen 650 mg PO Q6H PRN PRN #0 tab 01/16/20 [Rx Last Taken Unknown] pen needle, diabetic #30 dis.needle 01/16/20 [Rx Last Taken Unknown] acidophilus-pectin, citrus 1 tab PO BID 01/26/20 [History Last Taken Unknown] atorvastatin 20 mg PO DAILY 05/08/20 [History Last Taken Unknown] metoprolol tartrate 25 mg PO BID 05/08/20 [History Last Taken Unknown] potassium chloride 20 meq PO DAILYCM 05/08/20 [History Last Taken Unknown] amiodarone 200 mg PO BID #0 05/11/20 [Rx Last Taken Unknown] furosemide 40 mg PO BID #60 tab 05/11/20 [Rx Last Taken Unknown] insulin NPH isoph U-100 human 4 unit SQ BID #0 05/11/20 [Rx Last Taken Unknown] Allergy/AdvReac Type Severity Reaction Status Date / Time tramadol Allergy Rash Verified 12/17/20 00:07 Social History Smoking Status: Former smoker Vital Signs Vital Signs Vital Signs: 12/25/20 09:50 Temperature 97.2 F L Temperature Source Temporal Pulse Rate 97 Blood Pressure 140/87 H Blood Pressure Mean 104 Blood Pressure Source Monitor Weight Weight: 255 lb Body Mass Index (BMI) 41.5 Physical Exam Const alert, oriented x3, no apparent distress and well nourished Constitutional Narrative: The patient is obese. General Appearance: cooperative, comfortable and well developed Orientation / Consciousness: awake, oriented to person, oriented to place and oriented to time HEENT normocephalic and head/scalp atraumatic Head and Scalp: normal to inspection, normocephalic and atraumatic External Ear: external ears normal Eyes PERRL and EOMs intact bilaterally General Eye: normal appearance of both eyes Resp normal respiratory effort, normal air movement, no retractions and no use of accessory muscles Effort and Inspection: able to speak in complete sentences Extremity no calf tenderness Extremity Narrative: Severe swelling and edema are noted in the lower extremities bilaterally. There is severe erythematous, exfoliative dermatitis bilaterally in the gaiter areas. There do not appear to be any sue open wounds or ulcerations at this time. The epidermal layer appears to be sloughing rather diffusely. General Extremity: Negative for clubbing or cyanosis Skin Skin Narrative: A severe, erythematous exfoliative dermatitis is noted in the lower extremities bilaterally, associated with severe swelling and edema in the lower extremities bilaterally. Neuro oriented x3, CN's II-XII intact bilaterally and moves all extremities Sensorium / Orientation: awake, alert, oriented to person, oriented to place and oriented to time Psych Appearance: grossly normal and appropriate Attitude: calm Activity / Motor Behavior: appropriate eye contact Speech: normal speech Mood & Affect: euthymic mood Thought Process: normal thought process Thought Content: normal thought content Attention / Concentration: attention grossly intact Debridement Note Debridement Note Post-Debridement Measurements and Additional Note: Post-Debridement Measurements/Treatment - Nurse 1 - General Ulcer Assessment Start: 11/26/20 09:01 Freq: Status: Active Protocol: [email or web address] Activity Type Activity Date Activity User E-Sign Co-Sign Detail Recorded Client Recorded Date Recorded By Document 11/26/20 09:01 DL [id number] 11/26/20 09:03 DL Document 12/10/20 08:52 DL [id number] 12/10/20 08:54 DL Document 12/25/20 09:50 AK [id number] 12/25/20 09:54 AK 11/26/20 12/10/20 12/25/20 09:01 08:52 09:50 - Today's Visit Information Type of service Follow-up Visit Follow-up Visit Follow-up Visit (Physician/INS[employer] (Physician/[employer] (Physician/INS[employer] ) ) ) Arrival Mode Ambulatory Ambulatory Ambulatory Transfer Assistance None None Patient Identification Verified (Name & Yes Yes Yes ) Patient Requires Transmission-Based No No Precautions Height and Weight Body Mass Index (BMI) 41.5 41.5 41.5 BMI Classification Obese Obese Obese Vital Signs Temperature (97.8 F-99.1 F) 98 F 97.6 F L 97.2 F L Temperature Source Temporal Temporal Temporal Pulse Rate (60-100) 98 95 97 Pulse Location Monitor Monitor Respiratory Rate (12-18) 20 H 18 Respiratory rate source Observation Observation Oxygen Delivery Method Room Air Blood Pressure (90/60-120/80) 114/56 L 118/64 140/87 H Blood Pressure Mean 75 82 104 Source Monitor Monitor Monitor Position Sitting Blood Pressure Location Left Arm History Since Last Visit- (Skip if this is Patient's initial visit) Have you changed medications since your No No No last visit? Any new allergies or adverse reactions No No No Had a fall/change in ADL's that may No No No increase risk of falls Signs or symptoms of abuse and/or No No No neglect since last visit Have you been in the hospital since your No No No last visit? Has dressing in place as prescribed Yes No Yes Has compression in place as prescribed Yes No Yes Has offloadiing in place as prescribed N/A N/A N/A Experienced any changes in pain level or No No No management Left Footwear Slipper Regular Shoe Regular Shoe Right Footwear Slipper Regular Shoe Regular Shoe Pain Scale: 0-10 Numeric Is Patient Pain Free? Yes Yes WC - Nurse 1 - General Ulcer Measurement Start: 11/26/20 09:01 Freq: Status: Active Protocol: Activity Type Activity Date Activity User E-Sign Co-Sign Detail Recorded Client Recorded Date Recorded By Document 11/26/20 09:01 DL [id number] 11/26/20 09:03 DL Edit Result 11/26/20 09:01 DL (1) [id number] 11/26/20 09:10 DL Document 12/10/20 08:52 DL [id number] 12/10/20 08:54 DL Document 12/25/20 09:50 AK [id number] 12/25/20 09:54 AK (1) #2- Left lateral le cluster - Current Size (cm) - Length => 0 - Current Size (cm) - Width => 0 - Current Size (cm) - Depth => 0 - Total Square Cm => 0 - Photo Taken => Yes - Exudate Amt => None Present - Wound Margin => Flat & Intact - Granulation Amt => Large (67-100%) - Granulation Quality => Red - Necrosis Amt => None Present (0%) - Structure Exposed => N/A - Texture (Reina-wound Skin Appearance) => Excoriation, => Scarring - Moisture (Reina-wound Skin Appearance) => Weeping - Temperature (Reina-wound Skin => No Abnormality (Pt Appearance) => Warm) - Tenderness on Palpation (Reina-wound => No Skin Appearance) - Ulcer Cleansing => Wound Cleanser - Foul Odor after Cleansing => No 11/26/20 12/10/20 12/25/20 09:01 08:52 09:50 Wound Center Nurse 1 #2- Left lateral le cluster -Current Size (cm) - Length 0 -Current Size (cm) - Width 0 -Current Size (cm) - Depth 0 -Total Square Cm 0 -Photo Taken Yes -Exudate Amt None Present -Wound Margin Flat & Intact -Granulation Amt Large (67-100%) -Granulation Quality Red -Necrosis Amt None Present (0 %) -Structure Exposed N/A -Texture (Reina-wound Skin Appearance) Excoriation, Scarring -Moisture (Reina-wound Skin Appearance) Weeping -Temperature (Reina-wound Skin No Abnormality Appearance) (Pt Warm) -Tenderness on Palpation (Reina-wound No Skin Appearance) -Ulcer Cleansing Wound Cleanser -Foul Odor after Cleansing No Lower Limb Edema Present Yes Right Calf (cm) 48 47.2 48 Right Ankle (cm) 32 33 33 Left Calf (cm) 48 45 44 Point of measurement (cm from the medial 31 instep) Left Ankle (cm) 30 30 12/25/20 09:52 Nursing Note by Oli Morillo Both LE are red, scaly, and seeping a large amount -serosanguineous Initialized on 12/25/20 09:52 - END OF NOTE - Nurse 2 - General Ulcer CM Notes Start: 11/26/20 09:01 Freq: Status: Active Protocol: Activity Type Activity Date Activity User E-Sign Co-Sign Detail Recorded Client Recorded Date Recorded By Document 11/26/20 09:22 [id number] 11/26/20 09:25 Document 12/10/20 09:12 [id number] 12/10/20 09:13 JF 11/26/20 12/10/20 09:22 09:12 Pain Scale: 0-10 Numeric Is Patient Pain Free? Yes Yes - Nurse 3 - General Ulcer D/C NN Start: 11/26/20 09:01 Freq: Status: Active Protocol: Activity Type Activity Date Activity User E-Sign Co-Sign Detail Recorded Client Recorded Date Recorded By Document 11/26/20 09:51 DL [id number] 11/26/20 09:52 DL Document 12/10/20 09:24 BMF [id number] 12/10/20 09:26 [facility] 11/26/20 12/10/20 09:51 09:24 Wound Care Nurse 3 Left -Multi-Layered Wrap Application Profore Profore -Other super absorber; drsgs per d jennifer floor cashier Right -Lotion applied to leg before Yes compression wrap -Multi-Layered Wrap Application Profore Profore -Other superabsorber, drsgs per d jennifer floor cashier Treatment Response Procedure Procedure Tolerated Well Tolerated Well Pain Scale: 0-10 Numeric Is Patient Pain Free? Yes Yes WC - Visit Discharge Discharge Condition Stable Stable Ambulatory Status Ambulatory Ambulatory Transportation Private Auto Private Auto Facility Type Home Health Orders Sent Yes No debridement was completed: No debridement was completed today Assessment/Plan Assessment/Plan (1) Bilateral lower extremity edema: CODE(S): R60.0 - Localized edema (2) Stasis dermatitis of both legs: CODE(S): I87.2 - Venous insufficiency (chronic) (peripheral) (3) Chronic venous insufficiency: CODE(S): I87.2 - Venous insufficiency (chronic) (peripheral) (4) Bilateral cellulitis of lower leg: CODE(S): L03.116 - Cellulitis of left lower limb; L03.115 - Cellulitis of right lower limb (5) HTN (hypertension): CODE(S): I10 - Essential (primary) hypertension QUALIFIERS: Hypertension type: essential hypertension Qualified Code(s): I10 - Essential (primary) hypertension (6) Diabetes mellitus: CODE(S): E11.9 - Type 2 diabetes mellitus without complications (7) Obesity (BMI 30-39.9): CODE(S): E66.9 - Obesity, unspecified (8) CKD (chronic kidney disease) stage 3, GFR 30-59 ml/min: CODE(S): N18.3 - Chronic kidney disease, stage 3 (moderate) QUALIFIERS: Chronic kidney disease stage 3 subtype: unspecified whether 3a or 3b Qualified Code(s): N18.30 - Chronic kidney disease, stage 3 unspecified (9) Type 2 diabetes mellitus: CODE(S): E11.9 - Type 2 diabetes mellitus without complications QUALIFIERS: Diabetes mellitus detention insulin use: with detention use Diabetes mellitus complication status: with skin complications Diabetes mellitus complication detail: with other skin complication Qualified Code(s): E11.628 - Type 2 diabetes mellitus with other skin complications; Z79.4 - extermination supervisor (current) use of insulin (10) Hyperlipidemia: CODE(S): E78.5 - Hyperlipidemia, unspecified QUALIFIERS: Hyperlipidemia type: unspecified Qualified Code(s): E78.5 - Hyperlipidemia, unspecified (11) Lymphedema: CODE(S): I89.0 - Lymphedema, not elsewhere classified PLAN: This is a 65-year-old obese diabetic male with severe swelling, edema, and lymphedema in his lower extremities bilaterally. The swelling and edema is so severe, that the patient manifests extensive exfoliative dermatitis in the gaiter areas bilaterally. Erythema is also present, though there is uncertainty as to whether this is inflammatory or cellulitic in nature. Swab cultures have been obtained of the moist, exudative portion of the dermatitis. Swab cultures for both aerobic and anaerobic growth have been obtained, and results will be awaited. It is learned that the patient was evaluated by Dr. Davey Hyatt, Vascular Surgeon, yesterday in an outpatient setting, and that endovenous ablation procedures are anticipated for both lower extremities. This appears to be an intervention which will benefit the patient. However, in the immediate term, conservative treatment measures are warranted. It appears as though the patient has been instructed in the appropriate measures, but has been implementing the recommended measures to a lesser extent than required. For example, he claims to arise each day around 5 AM, often retiring around midnight. Of those approximate 19 hours awake, the patient only devotes approximately 90 minutes each day to elevating his legs to heart level, or higher. He does claim to sleep on the sofa, with his leg level with her higher than his heart. The patient has been counseled to elevate his legs to heart level, or higher, even during waking hours, as much as possible, and certain way much more than presently. Patient is currently using an absorptive topical dressing, with a Profore 4 layer compression wrap applied bilaterally. It is felt that the patient may benefit from a more frequent dressing change, using an absorptive inner layer such as Xtrasorb, wrapped with SurePress, a combination which can be changed on a daily basis. It is noted that the patient has home health nursing care for assistance in this regard. We are to await the results of swab cultures performed today, for both aerobic and anaerobic growth. In the interim, due to the severe erythema in both lower extremities, and concern relative to cellulitis, the patient has been placed on Keflex 500 mg p.o. 3 times daily for a total of 10 days. Patient is to follow-up henceforth with Yenifer Ann NP, his established provider [facility]. As previously mentioned, he remains under the care of Dr. Davey Hyatt, Vascular Surgeon, with regard to the treatment of his chronic venous insufficiency. Total time: 65 minutes
== END 2020-12-25 23:59 ==
LOC: WC 08:45
PROVIDERS: PCP Family Medicine; Referring Provider Family Medicine; Visit Provider Nurse Practitioner Family
DX: I89.0 Lymphedema, not elsewhere classified (principal); R60.0 Localized edema; L03.116 Cellulitis of left lower limb; L03.115 Cellulitis of right lower limb; E11.22 Type 2 diabetes mellitus with diabetic chronic kidney disease; E11.628 Type 2 diabetes mellitus with other skin complications; E66.01 Morbid (severe) obesity due to excess calories; E78.5 Hyperlipidemia, unspecified; I13.0 Hypertensive heart and chronic kidney disease with heart failure and stage 1 through stage 4 chronic kidney disease, or unspecified chronic kidney disease; I50.22 Chronic systolic (congestive) heart failure; I87.2 Venous insufficiency (chronic) (peripheral); N18.30 Chronic kidney disease, stage 3 unspecified; I25.2 Old myocardial infarction; Z68.30 Body mass index [BMI] 30.0-30.9, adult; Z79.4 Long term (current) use of insulin; Z79.82 Long term (current) use of aspirin; Z87.891 Personal history of nicotine dependence
CPT/HCPCS: 99213; 99214; G0463

== ENCOUNTER 2021-01-14 09:54 | Outpatient (RCR) | payer MEDICARE, SELFPAY ==
[2020-12-26 00:24] VITALS: BP 140/87; PULSE 97; RESP 18; TEMP 36.2; O2SAT 97; BMI 41.5
[2021-01-14 09:47] VITALS: BP 129/74; PULSE 93; RESP 16; TEMP 35.8; BMI 41.5
--- NOTE | 2021-01-14 13:01 | PCM.WC.PN ---
History of Present Illness Date of Service: 01/14/21 Chief Complaint: Severe bilateral lower extremity swelling and edema with diffuse, erythematous exfoliative dermatitic changes History of Wound: This is a 65-year-old who [facility] to nonhealing bilateral leg ulcers. He had presented to the emergency room at [facility] on 01/06/20 due to significant bilateral lower extremity pain and redness. Managed for bilateral leg cellulitis. Discharged on the . Ulcers have been managed at home by home health. Was on Omnicef at discharge. Still reports significant predominantly left lower extremity pain. Edema is persistent with weeping, with no improvement with 3M 2layer wraps. History of diabetes mellitus type 2 which is not well controlled. Right leg ulcer has since healed. Left lateral leg ulcer cluster is is now healed. He will apply Lac Hydrin lotion to lower legs and feet at the time of Profore wraps placed with super absorbent dressings 3 times per week. Venous Doppler study on 09/14/20 showed no evidence of DVT bilaterally. The right and left great saphenous vein appears incompetent below the knee. The accessory saphenous vein at the right sapheno-femoral junction is incompetent. The accessory saphenous vein in the right and left proximal calf are incompetent. Arterial studies on 09/14/20 with Triphasic Doppler waveforms at ankle bilaterally. Right ADONAY at dorsalis pedis is 1.35. Left ADONAY at dorsalis pedis is 1.23. He saw Dr. Hyatt at the end of September and saw him again on 12/03/20. He is recommending increased compression, increase walking, better elevation and sleeping in a bed. He also is going to do some laser treatments on his veins. He states that dermatology didn't say much about his red legs with sloughing skin. He has been referred to [facility] for further edema management. Consulted Dr. Fine for his input for further treatment due to no improvement in his skin, the drainage or the edema. Swab cultures obtained of of the moist exudative portion of dermatitis on the right leg on 12/25/20 which were positive for Pseudomonas aeroginosa, Streptococcus group G, Staphylococcus aureus, Enterobacter cloacae complex. He was initially started on Keflex for 10 days then he was switched to Levaquin because of his culture results. He denies chills, fever, nausea or vomiting. Progress of Wound: Legs appear less red but he continues to have large flaking plaques of sloughing skin. Objective Data Objective Data Vital Signs: Vital Signs Temp Pulse Resp BP Pulse Ox 96.4 F L 93 16 129/74 H 97 01/14/21 09:47 01/14/21 09:47 01/14/21 09:47 01/14/21 09:47 12/26/20 00:24 Oxygen Delivery Method Room Air Weight: 255 lb Body Mass Index (BMI) 41.5 Charges/Coding Visit Charges Office Visits / Consults: 75115 OV L3 Est Physical Exam Const alert and oriented x3 General Appearance: cooperative HEENT normocephalic Lymph Lymphatic Narrative: Bilateral lower leg lymphedema. Resp normal respiratory effort Cardio regular rate GI non-tender Palpation: soft Extremity normal capillary refill Extremity Narrative: Bilateral lower extremity +3 pitting edema and lymphedema Skin Skin Narrative: Bilateral lower legs with sloughing skin with large dry plaques of skin Neuro CN's II-XII intact bilaterally Psych affect normal Debridement Note Debridement Note No debridement was completed: No debridement was completed today Post-Debridement Measurements and Additional Note: Post-Debridement Measurements/Treatment - Nurse 1 - General Ulcer Assessment Start: 01/14/21 09:46 Freq: Status: Active Protocol: [place] Activity Type Activity Date Activity User E-Sign Co-Sign Detail Recorded Client Recorded Date Recorded By Document 01/14/21 09:47 [facility] [id number] 01/14/21 09:51 [facility] 01/14/21 09:47 - Today's Visit Information Type of service Follow-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 ) Arrival Mode Ambulatory Transfer Assistance None Patient Identification Verified (Name & Yes ) Patient Requires Transmission-Based No Precautions Height and Weight Body Mass Index (BMI) 41.5 BMI Classification Obese Vital Signs Temperature (97.8 F-99.1 F) 96.4 F L Temperature Source Temporal Pulse Rate (60-100) 93 Pulse Location Monitor Respiratory Rate (12-18) 16 Respiratory rate source Observation Oxygen Delivery Method Room Air Blood Pressure (90/60-120/80) 129/74 H Blood Pressure Mean (mm Hg) 92 Source Monitor Position Sitting Blood Pressure Location Left Arm History Since Last Visit- (Skip if this is Patient's initial visit) Have you changed medications since your No last visit? Any new allergies or adverse reactions No Had a fall/change in ADL's that may No increase risk of falls Signs or symptoms of abuse and/or No neglect since last visit Have you been in the hospital since your Yes last visit? Has dressing in place as prescribed No Has compression in place as prescribed No Has offloadiing in place as prescribed N/A Experienced any changes in pain level or No management Left Footwear Slipper Right Footwear Slipper Pain Scale: 0-10 Numeric Is Patient Pain Free? Yes - Nurse 1 - General Ulcer Measurement Start: 01/14/21 09:46 Freq: Status: Active Protocol: Activity Type Activity Date Activity User E-Sign Co-Sign Detail Recorded Client Recorded Date Recorded By Document 01/14/21 09:47 [facility] [id number] 01/14/21 09:51 [facility] 01/14/21 09:47 [facility] Nurse 1 Lower Limb Edema Present Yes Right Calf (cm) 49.4 Right Ankle (cm) 32.5 Left Calf (cm) 48.6 Left Ankle (cm) 29.3 - Nurse 2 - General Ulcer CM Notes Start: 01/14/21 09:46 Freq: Status: Active Protocol: Activity Type Activity Date Activity User E-Sign Co-Sign Detail Recorded Client Recorded Date Recorded By Document 01/14/21 10:44 [id number] 01/14/21 10:45 01/14/21 10:44 Pain Scale: 0-10 Numeric Is Patient Pain Free? Yes - Nurse 3 - General Ulcer D/C NN Start: 01/14/21 09:46 Freq: Status: Active Protocol: Activity Type Activity Date Activity User E-Sign Co-Sign Detail Recorded Client Recorded Date Recorded By Document 01/14/21 11:09 [facility] [id number] 01/14/21 11:11 [facility] 01/14/21 11:09 Wound Care Nurse 3 Right -Multi-Layered Wrap Application Profore -Other drsg per dl nursery helper Left -Multi-Layered Wrap Application Profore -Other drsg per dl nursery helper Treatment Response Procedure Tolerated Well Pain Scale: 0-10 Numeric Is Patient Pain Free? Yes WC - Visit Discharge Discharge Condition Stable Ambulatory Status Ambulatory Transportation Private Auto Assessment/Plan Assessment/Plan (1) Bilateral lower extremity edema: CODE(S): R60.0 - Localized edema (2) Stasis dermatitis of both legs: CODE(S): I87.2 - Venous insufficiency (chronic) (peripheral) (3) Chronic venous insufficiency: CODE(S): I87.2 - Venous insufficiency (chronic) (peripheral) (4) Bilateral cellulitis of lower leg: CODE(S): L03.116 - Cellulitis of left lower limb; L03.115 - Cellulitis of right lower limb (5) Type 2 diabetes mellitus: CODE(S): E11.9 - Type 2 diabetes mellitus without complications QUALIFIERS: Diabetes mellitus care home insulin use: with extermination supervisor use Diabetes mellitus complication status: with skin complications Diabetes mellitus complication detail: with other skin complication Qualified Code(s): E11.628 - Type 2 diabetes mellitus with other skin complications; 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 The swelling and edema is so severe, that the patient manifests extensive exfoliative dermatitis in the gaiter areas bilaterally. Erythema is present, but mild improved than previous visit. Swab cultures from obtained of the moist, exudative portion of the dermatitis on the right leg on 12/25/20 which were positive for Pseudomonas aeroginosa, Streptococcus group G, Staphylococcus aureus, Enterobacter cloacae complex. He was initially started on Keflex for 10 days then he was switched to Levaquin because of his culture results. Patient sees Dr. Davey Hyatt on 01/28/21. The patient has been counseled to elevate his legs to heart level, or higher, even during waking hours, as much as possible, and certain way much more than presently. Patient will start placing Triamcinolone cream on legs at the time of the Profore 4 layer compression wraps bilaterally 3 times per week. Reinforced low sodium diet, leg elevation and continuing lymphedema pumps. He will follow up in 3 weeks.
== END 2021-01-24 23:59 ==
LOC: WC 09:54
PROVIDERS: PCP Family Medicine; Referring Provider Family Medicine; Visit Provider Nurse Practitioner Family
DX: I89.0 Lymphedema, not elsewhere classified (principal); E11.22 Type 2 diabetes mellitus with diabetic chronic kidney disease; E11.628 Type 2 diabetes mellitus with other skin complications; L26 Exfoliative dermatitis; E66.01 Morbid (severe) obesity due to excess calories; I87.2 Venous insufficiency (chronic) (peripheral); L03.116 Cellulitis of left lower limb; L03.115 Cellulitis of right lower limb; N18.30 Chronic kidney disease, stage 3 unspecified; E66.9 Obesity, unspecified; Z68.30 Body mass index [BMI] 30.0-30.9, adult; Z79.4 Long term (current) use of insulin
CPT/HCPCS: 99213; G0463

== ENCOUNTER 2021-01-23 07:22 | Outpatient (RCR) | payer MEDICARE, SELFPAY ==
[2020-12-10 08:52] VITALS: BMI 41.5
--- NOTE | 2021-01-23 10:06 | HP.OTEVAL ---
Patient's Visit Information FADUMO EASLEY is a 65 year old M, referred to Occupational Therapy by KAYY Win, with a diagnosis of lymphedema bilateral LE. Date of Evaluation: 01/23/21 Occupational Therapist: Melody Yeung, JESSICA/Violet, CHT - Subjective This 65 year old male was seen for OT eval with dx of lymphedema- pt states his legs have been swelling for about 6 months or longer. pt states he was at wound center for diabetic ulcer. pt states they were wrapping for the ulcer and pt states he was placed on antibiotic and both legs have gone done a lot! pt states he has a home lymphedema pump- pt states he was advised he needed to use it 3x a day and hour each time- pt states he is doing it 2x a day for an hour. pt states he has compression socks at the 30-40 mmHg, but they were painful so he has not used them- pt states he does have velcro closure devices. pt states he and his son assist with wrapping his LE. due to seeping pt is wrapping about every 3-4 days. pt is using lotion as well. pt would like to know what he can do to stop the seeping. - Lymphedema (Circumferential Measure) Mid-foot: right 32cm left 36cm Ankle: right 34cm left 36cm Lower calf: right 36cm left 36cm Largest calf: right 46cm left 46cm Below knee: right 46cm left 45cm - Lower Limb Functional Index Lower Extremity Functional Score: 56 - Goals Demonstrate a 20% reduction in edema by d/c: Yes Demonstrate adequate knowledge skin care/prec by 2nd week: Yes Demonstrate adequate knowledge therapeutic exercises by d/c: Yes Select approp compression garment w/donning/care/wear by d/c: Yes - Rehabilitation General Assessment: pt demo with seeping LE in compression coband wraps- feet are unwrapped and skin is red swollen and dry flaking skin. pt demo need for skilled OT services 2-3 visits to increase pts chance of healing/stop weeping and control swelling of bilateral LE- Today therapist advised pt to wash legs a 2-3 x a day apply lotion and re-wrap within 30 min-45min- (getting soiled absorbent padding off skin more fequently than every 3-4 days) advised pt to include his foot with his wrapping. pt agreed- ed. pt on the need of using his pump 3x a day for an hour as his advised. Therapist ed, pt on need of using wraps until legs stop weeping and then transition to compression socks or his compression alternatives. pt demo understanding and agree to POC. Rehabilitation Potential: Questionable - Anticipated Interventions Education re Diagnosis, Education re Life-long lymphedema Management, Education re Skin Care and Precautions, Education re Correct Donning Tech,Care&Wearing Sched Comp Garments, Home Program - Visit Plan General Plan: pt to initiate use of pump 3x a day as directed. pt to wash legs 2-3 x a day and apply his lotion-. pt to change soiled wraps 2-3x a day. pt to initiate lymph stim exercise prior to use of pump to assist with fluid flow and absorption. pt to return when weeping stops to ensure compression sock and or compression Velcro closure device fit. TEXT: Thank you for the opportunity to evaluate your patient. For Medicare and Medicare HMO plans, please review the plan of care and approve it. It will need to be FAXED BACK to us at [phone] for Medicare purposes. Please let me know if there are questions or concerns regarding this plan of care. Physician Signature: Date:
--- NOTE | 2021-05-07 09:30 | HP.OT.NRP ---
FADUMO EASLEY was seen in my office for initial evaluation on 01/23/21. The following Plan of Care was established for this patient: Anticipated Interventions: Education re Diagnosis, Education re Life-long lymphedema Management, Education re Skin Care and Precautions, Education re Correct Donning Tech,Care&Wearing Sched Comp Garments, Home Program This patient was last seen in our office 01/23/21. Pertinent comments regarding their Occupational therapy will appear below: pt seen for eval only- no further apts scheduled due to time lapse in services pt d/c. At this point I will be discontinuing this patient from occupational therapy. I would be happy to see this patient again in the future if found appropriate by the physician. Thank you! Melody Yeung, OTR/L, CHT
== END 2021-01-23 19:00 | disposition home or self-care (01) ==
LOC: OT 07:22
PROVIDERS: PCP Family Medicine; Referring Provider Nurse Practitioner Family; Visit Provider Nurse Practitioner Family
DX: I89.0 Lymphedema, not elsewhere classified (principal)
CPT/HCPCS: 97166